=== PATIENT | female | born 1955 | race Caucasian/White ===

== ENCOUNTER 2017-03-28 18:31 | Emergency (ER) | payer OTHER ==
[~2017-03-28] VITALS: Ht 160 cm; Wt 75.8 kg
[~2017-03-28 18:31] MED LIST: AMOX500C3 PO; ARM1 PO; LSX20 PO; LSX40 PO; POTA-327 PO; WARF-285 PO
[2017-03-28 18:49] VITALS: BP 115/70; PULSE 68; TEMP 36.6; O2SAT 99; Ht 160 cm; Wt 75.8 kg
[2017-03-28] MEDS ORDERED: POTA10CA28 PO (20:00)
[2017-03-28] MEDS ORDERED: [UNRECOGNIZED DRUG - CODE] INJ (20:00)
[2017-03-28] MEDS ORDERED: FRS/40 PO (20:00)
[2017-03-28] MEDS ORDERED: WARF3TAB PO ×2 (20:00)
[2017-03-28] MEDS ORDERED: LEVO50TA6 PO (20:00)
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
[2017-03-28] MEDS ORDERED: CIPROFLOXACIN HCL 0.3% OP SOLN 2.5 ML BTL OP ONE (20:15)
[2017-03-28] MEDS ORDERED: LSN25 PO (22:02)
[2017-03-28] MEDS ORDERED: OXYC-164 PO (22:02)
[2017-03-28] MEDS ORDERED: CRD200 PO (22:02)
[2017-03-28] MEDS ORDERED: SIMV-151 PO (22:02)
[2017-03-28] MEDS ORDERED: TPRSR/50 PO (22:02)
[2017-03-28] MEDS ORDERED: ASPI81TA28 PO (22:07)
--- NOTE | 2017-03-29 00:41 | EMERGENCY ROOM VISIT NOTE ---
ED Visit Note First contact with patient: 19:15 Chief Complaint: Foggy vision and foreign body sensation in the right eye. History of Present Illness: Ms. Doherty is a 61-year-old white female who ambulates into the ED complaining of a foggy vision and foreign body sensation in the right eye. Historically patient reports her right eye sustained a traumatic injury and she had a have her iris repaired on the right. She also reports she's had a traumatic injury to the left eye and it has been replaced by an implant. Patient reports approximately 24 hours ago she started developing intermittent, transient perception's of fogginess over her right eye. These occur multiple times during the day but are limited to 5-10 seconds and then self resolved. Associated with the symptoms she reports she also has a foreign body sensation in the right eye. These all occurred while she was inside and she denies any recent trauma to her eye. Associated with the symptoms she reports she has a mild achiness in the right eye. She rates this discomfort 8/10. The pain is nonradiating. She has not identified any aggravating or alleviating factors related to the pain. She has not taken any medications for this discomfort prior to arrival at the hospital. Associated with her pain she also reports she has mild tearing and mild blurry vision in the right eye. She denies fevers, chills, sweats, skin eruptions, skin color changes, upper respiratory tract symptoms, floaters, halos, bronson, drawing curtains, headaches , dizziness, nausea/vomiting. Review of Systems: As noted above in history of present illness. 8 body systems were reviewed and found to be negative as noted above. Past Medical History: As noted above, chronic systolic heart failure, nonischemic cardiomyopathy, nonocclusive coronary artery disease, breast cancer , atrial fibrillation, hypothyroidism, and status post hip and knee replacement. Current Medications: Medications Dose Route/Sig Max Daily Dose Days Date Category Dose Instructions Micro-K Ext Rel (Potassium Chloride) 10 Meq Capcr 10 Meq PO BID 03/28/17 Reported Lasix (Furosemide) 40 Mg Tab 40 Mg PO DAILY 03/28/17 Reported Coumadin (Warfarin Sodium) 3 Mg Tab 1.5 Mg PO Fridays03/28/17 Reported Coumadin (Warfarin Sodium) 3 Mg Tab 3 Mg PO 6XWK 03/28/17 Reported TAKE ALL DAYS BUT MARICHUY Naloxone HCl 1 Mg/Ml Inj 1 Dose INJ UD 03/28/17 Reported USE 1/2 SYRINGE IN EACH NOSTRIL PRN FOR OPIOD OVERDOSE, REPEAT PRN AFTER 3-5 MINN. Levothyroxine Sodium 50 Mcg Tab 50 Mcg PO DAILY 03/28/17 Reported Aspirin Ec (Aspirin) 81 Mg Tab 81 Mg PO QPM 06/26/16 Reported Oxycodone Hcl 10 Mg Tab 10 Mg PO Q6H PRN 06/26/16 Reported Simvastatin 20 Mg Tab 20 Mg PO QPM 06/26/16 Reported Lisinopril 2.5 Mg Tab 1.25 Mg PO QPM 06/26/16 Reported Amiodarone HCl 200 Mg Tab 100 Mg PO QAM 06/26/16 Reported Metoprolol Succinate ER (Metoprolol Succinate) 50 Mg Tabcr 50 Mg PO QAM 06/26/16 Reported Amoxil (Amoxicillin) 500 Mg Cap 4 Tabs PO UD PRN 11/25/14 Reported prior to dentist Allergies to Medications: Docetaxal. Social History: Patient is not employed; she feels safe in her home environment ; she denies tobacco and alcohol use. Physical Examination: Vital Signs: Date Time Temp Pulse Resp B/P (MAP) Pulse Ox O2 Delivery O2 Flow Rate FiO2 03/28/17 18:49 36.6 68 16 115/70 99 Room Air GENERAL: 61-year-old female in mild distress due to pain, nontoxic-appearing, afebrile and hemodynamically stable. NEUROLOGICAL: Awake, alert and oriented to person, place and time. Answering questions appropriately and following commands. Normal gait. Good hand eye coordination. No focal motor or sensory deficits. SKIN: Warm, dry and pink. No soft tissue eruptions or trauma noted. HEENT: Atraumatic and normocephalic. No erythema or tenderness over the frontal or maxillary sinuses. Right pupil is irregular shaped with a tear of the iris at the 7 o'clock position. The pupil does respond to light. The left pupil is fixed due to prosthetic eye. No foreign bodies were noted under the eyelids are embedded in the cornea. The anterior chamber is clear. On slit lamp examination with staining patient had 2 punctate uptake of the staining at the flight o'clock position. There is distortion of the topical sclera at the 7 o'clock position from her previous surgeries. The sclera was not injected. Conjunctiva pink without obvious drainage. Visual Acuity: 20/30 with correction on the right. I did attempt to take intraocular pressure readings but was unsuccessful due to pupil shape. ED Course: Patient is assessed as noted above. Alcaine was used to anesthetize the eye for examination. Patient was educated about today's findings and instructed on her treatment plan ; she verbalizes understanding and agreement with this plan. Clinical Impression: Corneal abrasion. Foggy vision. Decision-Making: Initially my differential diagnosis I considered corneal abrasion, glaucoma, and other causes. Disposition: Patient discharged home in stable condition accompanied by her ; prior to departure she was reassessed and subjectively reported she was pain-free. Plan: Patient was encouraged to use 650 mg of acetaminophen every 6 hours as needed for pain. Patient was prescribed Ciloxan ophthalmic solution encouraged to use 2 drops in the right eye every 4 hours while awake for 5 days. Patient was encouraged to follow-up with her personal marine extension agent or return to the ED in 36-48 hours for recheck. Patient was encouraged return the ED for worsening symptoms, fevers, decrease in overall vision, severe headaches, vomiting or any new/concerning symptoms.
== END 2017-03-28 20:19 | disposition home or self-care (01) ==
LOC: C.EDB 18:32 → C.EDD 20:19
DX: H53.8 Other visual disturbances (principal); S05.01XA Injury of conjunctiva and corneal abrasion without foreign body, right eye, initial encounter; X58.XXXA Exposure to other specified factors, initial encounter; I42.9 Cardiomyopathy, unspecified; I50.22 Chronic systolic (congestive) heart failure; I25.10 Atherosclerotic heart disease of native coronary artery without angina pectoris; Z85.3 Personal history of malignant neoplasm of breast; I48.91 Unspecified atrial fibrillation; E78.5 Hyperlipidemia, unspecified; E03.9 Hypothyroidism, unspecified; Z98.890 Other specified postprocedural states; Z79.01 Long term (current) use of anticoagulants; Z79.82 Long term (current) use of aspirin; Z79.899 Other long term (current) drug therapy; Z96.642 Presence of left artificial hip joint; Z96.659 Presence of unspecified artificial knee joint; N18.3 Chronic kidney disease, stage 3 (moderate); I12.9 Hypertensive chronic kidney disease with stage 1 through stage 4 chronic kidney disease, or unspecified chronic kidney disease; Z90.89 Acquired absence of other organs; Z98.51 Tubal ligation status; Z90.13 Acquired absence of bilateral breasts and nipples; Z95.810 Presence of automatic (implantable) cardiac defibrillator

== ENCOUNTER 2017-03-31 11:55 | Emergency (ER) | payer OTHER ==
[~2017-03-31] VITALS: Ht 160 cm; Wt 75.3 kg
[~2017-03-31 11:55] MED LIST changes: -ARM1 PO; +ASPI81TA28 PO; +CRD200 PO; +FRS/40 PO; +LEVO50TA6 PO; +LSN25 PO; -LSX20 PO; -LSX40 PO; +OXYC-164 PO; -POTA-327 PO; +POTA10CA28 PO; +SIMV-151 PO; +TPRSR/50 PO; -WARF-285 PO; +WARF3TAB PO; +[UNRECOGNIZED DRUG - CODE] INJ
[2017-03-31 11:59] VITALS: TEMP 36.5; Ht 160 cm; Wt 75.3 kg
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
[2017-03-31] MEDS ORDERED: CPRDOTS OPR (12:30)
[2017-03-31] MEDS ORDERED: CIPR0.3S OPR (12:31)
[2017-03-31 12:37] VITALS: BP 133/80; PULSE 69; O2SAT 96
== END 2017-03-31 12:37 | disposition home or self-care (01) ==
LOC: C.EDB 11:56 → C.EDD 12:37
DX: Z51.89 Encounter for other specified aftercare (principal); S05.01XD Injury of conjunctiva and corneal abrasion without foreign body, right eye, subsequent encounter; X58.XXXD Exposure to other specified factors, subsequent encounter; I12.9 Hypertensive chronic kidney disease with stage 1 through stage 4 chronic kidney disease, or unspecified chronic kidney disease; N18.3 Chronic kidney disease, stage 3 (moderate); E03.9 Hypothyroidism, unspecified; E78.5 Hyperlipidemia, unspecified; I50.9 Heart failure, unspecified; I48.91 Unspecified atrial fibrillation; Z85.3 Personal history of malignant neoplasm of breast; Z79.01 Long term (current) use of anticoagulants; Z79.82 Long term (current) use of aspirin; Z79.899 Other long term (current) drug therapy; Z95.810 Presence of automatic (implantable) cardiac defibrillator; Z90.01 Acquired absence of eye; Z90.89 Acquired absence of other organs; Z96.642 Presence of left artificial hip joint; Z98.51 Tubal ligation status; Z90.13 Acquired absence of bilateral breasts and nipples

== ENCOUNTER 2018-02-03 21:30 | Emergency (ER) | payer OTHER ==
[~2018-02-03] VITALS: Ht 160 cm; Wt 76.9 kg
[~2018-02-03 21:30] MED LIST changes: -PROPOFOL IV EMULSION 10 MG/ML 20 ML VIAL ONE
[2018-02-03 21:44] VITALS: TEMP 36.4; Ht 160 cm; Wt 76.9 kg
[2018-02-03 21:59] VITALS: O2SAT 99
[2018-02-03 23:15] LABS: BASO % 0.2 %; BASO ABS # 0.02 K/uL (0-0.2); EOS % 0.4 %; EOS ABS # 0.04 K/uL (0-0.5); HEMATOCRIT 45.8 % (37-47); HEMOGLOBIN 15.6 g/dL (12.0-16.0); IG# 0.02 K/uL (0.00-0.02); LYMPH % 18.5 %; LYMPH ABS # 1.65 K/uL (1.2-3.4); MEAN CELL VOLUME 91.8 fL (80-100); MEAN CORPUSCULAR HEMOGLOBIN 31.3 pg (25-34); MEAN CORPUSCULAR HGB CONC 34.1 g/dl (32-36); MEAN PLATELET VOLUME 11.5 fL (7.4-10.4); MONO % 10.5 %; MONO ABS # 0.94 K/uL (0.11-0.59); NEUT % 70.2 %; NEUT ABS # 6.27 K/uL (1.4-6.5); PLATELET COUNT 182 K/uL (130-400); RED CELL DISTRIBUTION WIDTH CV 15.7 % (11.5-14.5); RED CELL DISTRIBUTION WIDTH SD 52.5 fL (36.4-46.3); WHITE BLOOD COUNT 8.94 K/uL (4.8-10.8)
[2018-02-03 23:35] LABS: ALBUMIN 3.6 gm/dl (3.4-5.0); ALT/SGPT 40 U/L (12-78); AST/SGOT 53 U/L (15-37); BLOOD UREA NITROGEN 30 mg/dl (7-18); CALCIUM 9.2 mg/dl (8.5-10.1); CARBON DIOXIDE 28 mmol/L (21-32); CREATININE 1.43 mg/dl (0.60-1.20); GLUCOSE 123 mg/dl (70-99); LIPASE 242 U/L (73-393); POTASSIUM 4.3 mmol/L (3.5-5.1); SODIUM 135 mmol/L (136-145)
[2018-02-03 23:40] LABS: ALKALINE PHOSPHATASE 114 U/L (45-117); CKMB 1.8 ng/ml (0.5-3.6); TOTAL PROTEIN 7.5 gm/dl (6.4-8.2)
[2018-02-03 23:44] LABS: INR 5.5 (0.9-1.1); PTT PATIENT 33.4 SECONDS (21.0-31.0)
--- NOTE | 2018-02-04 00:07 | EMERGENCY ROOM VISIT NOTE ---
History Report prepared by Negrito: Ge Marley Under the Supervision of: Dr. Marcelino Esquivel D.O. First contact with patient: 22:32 Chief Complaint: SHORTNESS OF BREATH Stated Complaint: DIZZY, TROUBLE BREATHING, NAUSEA,CHEST PAIN Nursing Triage Summary: Nonproductive cough, midsternal chest pressure, nausea. Pt was cardioverted by Dr Freed this am @ 0700. Pt felt fine post cardioversion and about 0930 she started having sx's. History of Present Illness The patient is a 62 year old female who presents to the Emergency Room with complaints of persistent general shortness of breath since this afternoon. She has a history of CHF. She notes that she was not feeling well for one week prior to yesterday. She notes that she kept swelling and her diuretic medication was not helping. She was seen by her PCP who determined that she had atrial fibrillation. 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 She regularly takes Coumadin. She states that she was able to ambulate without issue and felt great. She notes that once she got home, she could not breathe again. Per nursing staff, the patient notes that she became nauseated and vomited. She tried laying down and her breathing worsened. She does not wear at home oxygen. She denies any chest pain. Source of History: patient Onset: since this afternoon Position: other (general ) Quality: other (shortness of breath) Timing: other (persistent) Modifying Factors (Worsening): other (lying flat) Associated Symptoms: + nausea, + vomiting, No chest pain Review of Systems See HPI for pertinent positives & negatives. A total of 10 systems reviewed and were otherwise negative. Past Medical & Surgical Medical Problems: (1) Atrial fibrillation (2) Blind left eye (3) Cardiac defibrillator in situ (4) CHF (congestive heart failure) (5) CKD (chronic kidney disease) stage 3, GFR 30-59 ml/min (6) Depression (7) Dyslipidemia (8) History of breast cancer (9) HTN (hypertension) (10) Hyperthyroidism (11) Hypothyroidism Surgical Problems: (1) History of removal of eye (2) History of tonsillectomy and adenoidectomy (3) History of total left hip arthroplasty (4) History of tubal ligation (5) Hx of total knee arthroplasty (6) S/P mastectomy, bilateral Family History No pertinent family history Social History Smoking Status: Never Smoker Marital Status: Housing Status: lives with family Current/Historical Medications Scheduled Amiodarone HCl (Amiodarone HCl), 100 MG PO QAM Aspirin (Aspirin Ec), 81 MG PO QPM Furosemide (Lasix), 40 MG PO DAILY Levothyroxine Sodium (Levothyroxine Sodium), 50 MCG PO DAILY Lisinopril (Lisinopril), 1.25 MG PO QPM Metoprolol Succinate (Metoprolol Succinate ER), 50 MG PO QAM Potassium Chloride (Micro-K Ext Rel), 10 MEQ PO BID Simvastatin (Simvastatin), 20 MG PO QPM Warfarin Sodium (Coumadin), 3 MG PO 6XWK Warfarin Sodium (Coumadin), 1.5 MG PO FRIDAYS Scheduled PRN Amoxicillin (Amoxil), 4 TABS PO UD PRN for Prior To Dental Procedures Oxycodone Hcl (Oxycodone Hcl), 10 MG PO Q6H PRN for Pain Allergies Coded Allergies: Docetaxel (Unverified Allergy, Severe, Chest pain, syncope, unable to talk , visual disturbances, 02/03/18) Physical Exam Vital Signs Date Time Temp Pulse Resp B/P (MAP) Pulse Ox O2 Delivery O2 Flow Rate FiO2 02/03/18 23:10 68 20 121/90 97 Room Air 02/03/18 22:15 97 Room Air 02/03/18 22:02 64 02/03/18 21:59 99 Nasal Cannula 2.0 02/03/18 21:59 99 Nasal Cannula 02/03/18 21:44 36.4 64 20 123/89 95 Room Air Physical Exam CONSTITUTIONAL/VITAL SIGNS: Reviewed / noted above. GENERAL: Non-toxic in appearance. INTEGUMENTARY: Warm, dry, and [place]. HEAD: Normocephalic. EYES: without scleral icterus or trauma. ENT/OROPHARYNX: clear and moist. LYMPHADENOPATHY/NECK: Is supple without lymphadenopathy or meningismus. RESPIRATORY: Lungs clear and equal. CARDIOVASCULAR: Regular rate and rhythm. GI/ABDOMEN: Soft and nontender. No organomegaly or pulsatile mass. No rebound or guarding. Normal bowel sounds. EXTREMITIES: Warm and well perfused. BACK: No CVA tenderness. NEUROLOGICAL: Intact without focal deficits. PSYCHIATRIC: normal affect. MUSCULOSKELETAL: Normally developed with good muscle tone. Medical Decision & Procedures ER Provider Diagnostic Interpretation: Radiology results as stated below per my review and interpretation: CHEST XR: No pneumonia. No pneumothorax. Mild cardiomegaly. No pulmonary edema. Laboratory Results 02/03/18 23:05 Red Blood Count 4.99, Mean Corpuscular Volume 91.8, Mean Corpuscular Hemoglobin 31.3, Mean Corpuscular Hemoglobin Concent 34.1, Mean Platelet Volume 11.5, Neutrophils (%) (Auto) 70.2, Lymphocytes (%) (Auto) 18.5, Monocytes (%) (Auto) 10.5, Eosinophils (%) (Auto) 0.4, Basophils (%) (Auto) 0.2, Neutrophils # (Auto ) 6.27, Lymphocytes # (Auto) 1.65, Monocytes # (Auto) 0.94, Eosinophils # (Auto ) 0.04, Basophils # (Auto) 0.02 02/03/18 23:05 Test 02/03/18 23:05 White Blood Count 8.94 K/uL (4.8-10.8) Red Blood Count 4.99 M/uL (4.2-5.4) Hemoglobin 15.6 g/dL (12.0-16.0) Hematocrit 45.8 % (37-47) Mean Corpuscular Volume 91.8 fL (80-100) Mean Corpuscular Hemoglobin 31.3 pg (25-34) Mean Corpuscular Hemoglobin Concent 34.1 g/dl (32-36) Platelet Count 182 K/uL (130-400) Mean Platelet Volume 11.5 fL (7.4-10.4) Neutrophils (%) (Auto) 70.2 % Lymphocytes (%) (Auto) 18.5 % Monocytes (%) (Auto) 10.5 % Eosinophils (%) (Auto) 0.4 % Basophils (%) (Auto) 0.2 % Neutrophils # (Auto) 6.27 K/uL (1.4-6.5) Lymphocytes # (Auto) 1.65 K/uL (1.2-3.4) Monocytes # (Auto) 0.94 K/uL (0.11-0.59) Eosinophils # (Auto) 0.04 K/uL (0-0.5) Basophils # (Auto) 0.02 K/uL (0-0.2) RDW Standard Deviation 52.5 fL (36.4-46.3) RDW Coefficient of Variation 15.7 % (11.5-14.5) Immature Granulocyte % (Auto) 0.2 % Immature Granulocyte # (Auto) 0.02 K/uL (0.00-0.02) Prothrombin Time 55.6 SECONDS (9.0-12.0) Prothromb Time International Ratio 5.5 (0.9-1.1) Activated Partial Thromboplast Time 33.4 SECONDS (21.0-31.0) Partial Thromboplastin Ratio 1.3 Anion Gap 7.0 mmol/L (3-11) Est Creatinine Clear Calc Drug Dose 41.1 ml/min Estimated GFR () 46.0 Estimated GFR (Non- 39.7 BUN/Creatinine Ratio 20.7 (10-20) Calcium Level 9.2 mg/dl (8.5-10.1) Total Bilirubin 1.5 mg/dl (0.2-1) Direct Bilirubin 0.8 mg/dl (0-0.2) Aspartate Amino Transf (AST/SGOT) 53 U/L (15-37) Alanine Aminotransferase (ALT/SGPT) 40 U/L (12-78) Alkaline Phosphatase 114 U/L (45-117) Total Creatine Kinase 73 U/L (26-192) Creatine Kinase MB 1.8 ng/ml (0.5-3.6) Creatine Kinase MB Ratio 2.5 (0-3.0) Troponin I < 0.015 ng/ml (0-0.045) Total Protein 7.5 gm/dl (6.4-8.2) Albumin 3.6 gm/dl (3.4-5.0) Lipase 242 U/L (73-393) Laboratory results as stated above per my review. ECG Per My Interpretation Indication: SOB/dyspnea Rate (beats per minute): 66 Rhythm: sinus rhythm Findings: 1st degree AV block, LBBB Change: no significant change (when compared to 0739 this morning) ED Course 2233: Previous medical records were reviewed. The patient was evaluated in room C11B. A complete history and physical examination was performed. 0002: I reassessed the patient at this time. She is feeling better and resting comfortably. I discussed the results and treatment plan with the patient. I answered all pertaining questions that she had. She expressed understanding and verbalized agreement. The patient will be discharged home. Medical Decision Differentials considered include acute myocardial infarction, acute coronary syndrome, myocarditis, pericarditis, pericardial effusions /tamponade, esophageal perforation, pulmonary embolism, pneumonia, pneumothorax, cardiomyopathy, congestive heart, anemia, and COPD/asthma exacerbation. This is a 62-year-old female who presents to the ED with a chief complaint of shortness of breath. She also reports some chest discomfort. The patient was cardioverted this morning by Dr. Freed around 7 AM. When she got home, she felt nauseated and had a little vomiting and has been feeling short of breath and having chest discomfort since that time. The patient was cardioverted for atrial fibrillation. She is chronically on warfarin. The patient's vital signs were normal. Her physical exam was unremarkable. Lungs were clear. The patient's CBC was normal, troponin was negative, INR is 5.5, BUN and creatinine are slightly elevated, chest x-ray was negative for acute disease. The EKG shows a normal sinus rhythm and is similar to one done earlier today. Patient was told the results. She was more relaxed and feeling better at the time of disposition. She was felt to be stable for discharge. She has an appointment to see her processing clerk tomorrow. Medication Reconcilliation Current Medication List: was personally reviewed by me Blood Pressure Screening Patient's blood pressure: Normal blood pressure Impression Primary Impression: Dyspnea Scribe Attestation The scribe's documentation has been prepared under my direction and personally reviewed by me in its entirety. I confirm that the note above accurately reflects all work, treatment, procedures, and medical decision making performed by me. Departure Information Dispostion Home / Self-Care Referrals Rose Marie Galloway M.D. (PCP) Patient Instructions My [facility] Additional Instructions Follow-up with your doctor for further care and evaluation in 1-2 days. Return to the emergency department for worsening or new symptoms or any concerns. You have been examined and treated today on an emergency basis only. This is not a substitute for, or an effort to provide, complete comprehensive medical care. It is impossible to recognize and treat all injuries or illnesses in a single emergency department visit. It is therefore important that you follow up closely with your doctor. Call as soon as possible for an appointment.
[2018-02-04 00:34] VITALS: BP 120/84; PULSE 71; O2SAT 97
--- NOTE | 2018-02-04 07:08 | DIAGNOSTIC IMAGING REPORT ---
CHEST ONE VIEW PORTABLE CLINICAL HISTORY: Evaluate Fever/Sepsis dyspnea COMPARISON STUDY: 06/26/2016 FINDINGS: Mild stable cardia megaly. Unipolar cardiac defibrillator in good position. Lungs are clear. IMPRESSION: No acute process. The above report was generated using voice recognition software. It may contain grammatical, syntax or spelling errors. Electronically signed by: Graeme Campos M.D. 02/04/2018 7:06 AM Dictated Date/Time: 02/04/2018 7:06 AM
== END 2018-02-04 00:36 | disposition home or self-care (01) ==
LOC: C.EDB 21:31 → C.EDC 02-04 00:36
DX: R06.00 Dyspnea, unspecified (principal); R11.2 Nausea with vomiting, unspecified; I48.91 Unspecified atrial fibrillation; Z79.01 Long term (current) use of anticoagulants; Z79.82 Long term (current) use of aspirin; I50.9 Heart failure, unspecified; N18.3 Chronic kidney disease, stage 3 (moderate); E03.9 Hypothyroidism, unspecified; E78.5 Hyperlipidemia, unspecified; Z95.810 Presence of automatic (implantable) cardiac defibrillator; Z88.8 Allergy status to other drugs, medicaments and biological substances

== ENCOUNTER → 2018-02-03 | Day surgery (SDC) | payer OTHER ==
[~2018-02-03] VITALS: Ht 160 cm; Wt 74.0 kg
[2018-02-03] VITALS (7 sets, daily range): BP systolic 97–125; BP diastolic 49–98; PULSE 46–86; TEMP 36.8; O2SAT 92–97; Ht 160 cm; Wt 74.0 kg
[~2018-02-03] MED LIST changes: +CIPR0.3S OPR; +PROPOFOL IV EMULSION 10 MG/ML 20 ML VIAL ONE; -[UNRECOGNIZED DRUG - CODE] INJ
--- NOTE | 2018-02-03 07:37 | History & Physical Bridge Note ---
H&P Re-Evaluation Bridge Note: I have examined the patient, reviewed the History & Physical and in the interval since the performance of the History & Physical I have noted the following changes of clinical significance: No changes noted
--- NOTE | 2018-02-03 07:42 | Cardiology Procedure Brief Nt ---
Preliminary Cardiology Note Procedure Date February 03, 2018. Pre-Procedure Diagnosis Atrial fibrillation Post-Procedure Diagnosis Successful biphasic synchronized electrical cardioversion Procedure(s) Performed Successful biphasic synchronized electrical cardioversion Slug Press Operator Abdiaziz Kiln Door Builder(s) None Estimated Blood Loss None Preliminary Findings Successful biphasic synchronized electrical cardioversion was performed using single 150 J countershock. Recommendations Continued medical medical therapy Fluids (cc crystalloids) 75cc Specimens None Complication(s) None Disposition Offset Platemaker Holding Area
--- NOTE | 2018-02-03 07:47 | Discharge Instructions ---
Discharge Instructions Procedure Procedure Date: February 03, 2018. Reason for Visit: AfibNotified AnesthesiaAbdiaziz To Do. Discharge Discharge Date: February 03, 2018. Discharge Diagnosis: Successful biphasic synchronized electrical cardioversion Last Recorded Wt (Kilograms): 74 Anesthesia Post Anesthesia Instructions: If you have had General Anesthesia or IV Sedation: * Do not drive today. * Resume driving when surgeon permits. * Do not make important decisions or sign legal documents today. * Call surgeon for: 1. Temperature elevations greater than 101 degrees F. 2. Uncontrollable pain. 3. Excessive bleeding. 4. Persistent nausea and vomiting. 5. Medication intolerance (nausea, vomiting or rash). * For nausea and vomiting use only clear liquids such as: tea, soda, bouillon until nausea subsides, then gradually increase diet as tolerated. * If you have any concerns or questions, call your surgeon's office. If physician is unavailable and it is an emergency, call 911 or go to the nearest emergency room. Instructions Activity Recommendations: limitations as noted below Recommended Home Diet: resume previous diet Allergies: Coded Allergies: Docetaxel (Unverified Allergy, Severe, Chest pain, syncope, unable to talk , visual disturbances, 03/31/17) Provider Instructions ACTIVITY RECOMMENDATIONS: Resume activities as tolerated with no limitations unless specified. __ No lifting over __ pounds for 24 hours. __ Do not engage in vigorous exercise, sexual activity, or sports for 24 hours. __ Do not drive or operate any motorized equipment for 24 hours. __ You may return to work/school tomorrow. Follow Up Follow-up with: Graeme Pang/ Dr Giordano as scheduled [facility] Recommendations: Call your doctor if: * Temperature above 101 degrees * Pain not relieved by pain medicine ordered * There is increased drainage or redness from any incision * You have any unanswered questions or concerns. Your Doctors Instructions noted above were prepared by provider Jeromy Freed. Patient Signature Section: Patient Instructions Signature Page Kayce Doherty Patient (or Guardian) Signature/Date: I have read and understand the instructions given to me by my caregivers. Caregiver/RN/Doctor Signature/Date: The above-named patient and/or guardian has received patient instructions on this date. + Original Patient Signature Page (only) stays with chart. Please make copy for patient.
--- NOTE | 2018-02-03 08:12 | Anesthesiology Progress Note ---
Anesthesia Post Op Note Date & Time February 03, 2018 at 08:11 Vital Signs Pain Intensity: 0 Vital Signs Past 12 Hours Date Time Temp Pulse Resp B/P (MAP) Pulse Ox O2 Delivery O2 Flow Rate FiO2 02/03/18 08:05 60 18 115/74 (88) 95 Room Air 02/03/18 08:00 50 18 107/66 (80) 93 Room Air 02/03/18 07:55 48 18 106/61 (76) 94 Room Air 02/03/18 07:50 50 18 95/54 (68) 95 Room Air 02/03/18 07:45 52 18 98/54 (69) 97 Nasal Cannula 5 02/03/18 07:43 49 16 97/55 97 Nasal Cannula 5 02/03/18 07:41 46 16 104/51 96 Nasal Cannula 5 02/03/18 07:40 50 16 103/49 94 Nasal Cannula 5 02/03/18 07:35 58 16 106/61 96 Nasal Cannula 5 02/03/18 07:31 86 16 124/98 96 Nasal Cannula 5 02/03/18 07:02 36.8 74 16 125/82 (96) 92 Room Air Notes Mental Status: alert / awake / arousable, participated in evaluation Pt Amnestic to Procedure: Yes Nausea / Vomiting: adequately controlled Pain: adequately controlled Airway Patency, RR, SpO2: stable & adequate BP & HR: stable & adequate Hydration State: stable & adequate Anesthetic Complications: no major complications apparent
--- NOTE | 2018-02-03 11:11 | CARDIOVERSION ---
DATE OF OPERATION: 02/03/2018 SYNCHRONIZED ELECTRICAL CARDIOVERSION REPORT REFERRING PHYSICIAN: Graeme Pang PA-C PRIMARY CARE PHYSICIAN: Dr. Galloway. INDICATIONS: Atrial fibrillation with poorly controlled ventricular response for poor rate. PROCEDURE: After procedure and risks were explained in detail to the patient, informed consent was obtained. Patient was then sedated via anesthesia consultation with continuous heart rate, blood pressure and oxygen saturation monitoring. Single biphasic 150-joule synchronized countershock was administered with successful conversion to sinus rhythm. Post-procedure, the patient aroused having tolerated well without complications. EKG postprocedure demonstrated sinus bradycardia at a rate of 53 with first-degree AV block, nonspecific intraventricular conduction delay. QT corrected of 478. RECOMMENDATIONS: Continued medical therapies. No changes in medical regimen. Outpatient followup as are previously scheduled. I attest to the content of the Intraoperative Record and any orders documented therein. Any exception s are noted below.
== END | disposition home or self-care (01) ==
LOC: C.CATH 06:05
PROVIDERS: ATTEND Internal Medicine Cardiovascular Disease
DX: I48.0 Paroxysmal atrial fibrillation (principal); E05.80 Other thyrotoxicosis without thyrotoxic crisis or storm; I11.0 Hypertensive heart disease with heart failure; I42.7 Cardiomyopathy due to drug and external agent; I25.10 Atherosclerotic heart disease of native coronary artery without angina pectoris; I50.22 Chronic systolic (congestive) heart failure; Z85.3 Personal history of malignant neoplasm of breast; Z90.13 Acquired absence of bilateral breasts and nipples; Z95.810 Presence of automatic (implantable) cardiac defibrillator; E78.5 Hyperlipidemia, unspecified; Z79.899 Other long term (current) drug therapy

== ENCOUNTER 2024-11-24 18:03 | Inpatient (IN) ==
[2024-11-24 18:48] LABS: Basophils # (auto) 0.06 K/uL (0.00-0.20); Basophils % (auto) 0.7 %; Eosinophils # (auto) 0.06 K/uL (0.00-0.50); Eosinophils % (auto) 0.7 %; Hematocrit (blood only) 45.2 % (37.0-47.0); Hemoglobin 14.5 g/dl (12.0-16.0); Immature Granulocytes # (auto) 0.04 K/uL (0.01-0.20); Immature Granulocytes % (auto) 0.5 %; Lymphocytes # (auto) 2.36 K/uL (1.20-3.40); Lymphocytes % (auto) 29.1 %; Mean Corpuscular Hemoglobin 29.2 pg (25.0-34.0); Mean Corpuscular Hgb Conc 32.1 g/dL (32.0-36.0); Mean Corpuscular Volume 90.9 fL (80.0-100.0); Mean Platelet Volume 11.6 fL (9.4-12.4); Monocytes # (auto) 0.77 K/uL (0.11-0.59); Monocytes % (auto) 9.5 %; Neutrophils # (auto) 4.82 K/uL (1.40-6.50); Neutrophils % (auto) 59.5 %; Platelet Count 201 K/uL (130-400); RDW Coefficient of Variation 16.4 % (11.5-14.5); RDW Standard Deviation 54.4 fL (36.4-46.3); Red Blood Count 4.97 M/uL (4.20-5.40); White Blood Count 8.11 K/ul (4.8-10.8)
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
[2024-11-24 19:12] LABS: Alanine Aminotransferase 64 U/L (7-52); Albumin Globulin Ratio 1.3 (0.9-2); Albumin Level 4.2 gm/dl (3.4-5.0); Alkaline Phosphatase 73 U/L (34-104); Anion Gap 11 (3-11); Aspartate Aminotransferase 54 U/L (13-39); BUN Creatinine Ratio 19.4 (10-20); Bilirubin,Total 1.6 mg/dl (0.2-1.0); Blood Urea Nitrogen 34 mg/dl (6-23); Calcium 10.3 mg/dl (8.6-10.3); Carbon Dioxide 26 mmol/L (21-32); Chloride 101 mmol/L (98-107); Globulin 3.2 gm/dl (2.5-4.0); Glucose 80 mg/dl (70-99(Fasting)); Magnesium 2.5 mg/dl (1.7-2.4); Potassium 3.5 mmol/L (3.5-5.1); Sodium 138 mmol/L (136-145); Total Protein 7.4 gm/dl (6.0-8.3)
[2024-11-24 19:17] LABS: INR 1.3 (0.9-1.1); Partial Thromboplastin Ratio 1.1; Partial Thromboplastin Time 30 Seconds (21-31)
[2024-11-24 19:18] LABS: Troponin I High Sensitivity 14.2 pg/ml (0-14)
--- NOTE | 2024-11-24 19:18 | XRay Report ---
Chest radiograph, one view History: Chest pain Comparison: 10/29/2022 Findings: Single AP view of the chest performed. No focal consolidation or pleural effusion. No pneumothorax. Left chest wall 3-lead AICD. The cardiomediastinal silhouette is within normal limits. Normal pulmonary vascularity. No evidence for lymphadenopathy. No visualized bony or soft tissue abnormality. Impression: Normal chest radiograph Electronically signed by Javad Mcduffie 11-24-2024 7:18 PM
[2024-11-24] MEDS: FUROSEMIDE 40 MG/4 ML VIAL IV ONE (19:41)
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
[2024-11-24] MEDS: ALBUMIN 25% 12.5 GM/50 ML VIAL IV ONE (20:25)
[2024-11-24 20:40] LABS: Appearance Urine Clear (Clear); Bacteria Urine Automated None Seen (None Seen); Bilirubin Urine Negative (Negative); Blood Urine 2+ (Negative); Cast Urine Automated 0-2 /lpf (0-2); Color Urine Yellow; Glucose Urine UA 3+ (Negative); Ketones Urine Negative (Negative); Leukocyte Esterase Urine Negative (Negative); Nitrite Urine Negative (Negative); Protein Urine 1+ (Negative); RBC Urine Automated 0-2 /hpf (0-2); Specific Gravity Urine 1.015 (1.000-1.030); Urobilinogen Urine Negative (Negative)
[2024-11-24] MEDS ORDERED: POLYETHYLENE (MIRALAX) 17 GM PACK PO PRN (21:19)
[2024-11-24] MEDS ORDERED: ACETAMINOPHEN 325 MG TAB PO PRN (22:03)
[2024-11-24] MEDS ORDERED: ACETAMINOPHEN 500 MG TAB PO PRN (22:07)
[2024-11-24] MEDS: POLYETHYLENE (MIRALAX) 17 GM PACK PO STA (23:14)
[2024-11-24] MEDS: DOCUSATE SODIUM/SENNA 50/8.6MG TAB PO SCH (23:14)
[2024-11-24] MEDS: Patient's HEIGHT &/or WEIGHT Needed STA (23:18)
[2024-11-24] MEDS: ALBUMIN 25% 25 GM/100 ML VIAL IV ONE (23:27)
[2024-11-25] MEDS: APIXABAN 2.5 MG TAB PO ONE (00:23)
[2024-11-25] MEDS: APIXABAN 5 MG TABLET PO SCH (00:31)
[2024-11-25 01:08] LABS: C Reactive Protein < 0.50 mg/dl (0-0.5)
[2024-11-25 01:16] LABS: Troponin I High Sensitivity 14.2 pg/ml (0-14)
[2024-11-25 01:25] LABS: Adenovirus PCR Not Detected (NotDetected); Bordetella parapertussis PCR Not Detected (NotDetected); Bordetella pertussis PCR Not Detected (NotDetected); Chlamydia pneumoniae PCR Not Detected (NotDetected); Coronavirus 229E PCR Not Detected (NotDetected); Coronavirus CoV-2 (COVID19)PCR Not Detected (NotDetected); Coronavirus HKU1 PCR Not Detected (NotDetected); Coronavirus NL63 PCR Not Detected (NotDetected); Coronavirus OC43PCR Not Detected (NotDetected); Human Metapneumovirus PCR Not Detected (NotDetected); Influenza A PCR Not Detected (NotDetected); Influenza B PCR Not Detected (NotDetected); Mycoplasma pneumoniae PCR Not Detected (NotDetected); Parainfluenza Virus 1 PCR Not Detected (NotDetected); Parainfluenza Virus 2 PCR Not Detected (NotDetected); Parainfluenza Virus 3 PCR Not Detected (NotDetected); Parainfluenza Virus 4 PCR Not Detected (NotDetected); Respiratory Syncytial VirusPCR Not Detected (NotDetected); Rhinovirus/Enterovirus PCR Not Detected (NotDetected)
--- OUTSIDE RECORDS SUMMARY | 2024-11-25 03:23 | External Medical Summary | Summary of Care ---
Author Name Unknown Organization [facility] Address [address] [place] [address] Phone [phone] Care Team Providers Care Strand Galvanizer Name Role Phone Rose Marie Galloway MD Primary Care Provide r Encounter Details Date Type Department Care Team (Late st Contact Info) Description 11/16/2024 Telephone Endocrinology [facility], Marge Sam [address] [place] [address] [place] [address] Wilian Joshua, [address] [place] [address] Allergies Active Allergy Reactions Criticality Noted Date Comments Docetaxel 02/14/2011 Chest pain, passed out , could not talk, saw silver round bubbles documented as of this encounter (statuses as of 11/23/2024) Medications OXYCODONE HCL 10 MG PO TABSIndications:pa in as needed Take by mouth every 8 hours as needed . Active Vitamin D3 50 MCG (1999 UT) Oral Capsule Take 1 Capsule by mouth in the morning. 30 Capsule 5 3 Active Jardiance 10 MG Oral Tablet (Empagliflozin)Ind ications:Systolic heart failure, chronic (HCC),Drug-induced cardiomyopathy (HCC),HTN, goal below 140/90 TAKE 1 TABLET BY MOUTH EVERY DAY IN THE MORNING 90 Tablet 3 4 Active Levothyroxine Sodium 75 MCG Oral Tablet (Levoxyl)Indicatio ns:Hypothyroidism due to medication TAKE 1 TABLET BY MOUTH EVERY DAY AT LEAST 30 MIN BEFORE BREAKFAST OR OTHER MEDICATION 90 Tablet 3 4 Active Metoprolol Succinate ER 100 MG Oral Tablet Extended Release 24 Hour (toPROL XL)Indications:Per manent atrial fibrillation (HCC),Drug-induced cardiomyopathy (HCC),HTN, goal below 140/90 TAKE 1 TABLET BY MOUTH TWICE A DAY 180 Tablet 3 4 Active Rosuvastatin Calcium 20 MG Oral Tablet (Crestor)Indicatio ns:Dyslipidemia, goal LDL below 100 TAKE 1 TABLET BY MOUTH EVERY DAY 90 Tablet 3 4 Active Eliquis 5 MG Oral Tablet (Apixaban)Indicati ons:Permanent atrial fibrillation (HCC) TAKE 1 TABLET BY MOUTH TWICE A DAY 180 Tablet 1 4 Active Spironolactone 25 MG Oral Tablet (Aldactone)Indicat ions:HTN, goal below 140/90,Heart failure, systolic, with acute decompensation (HCC) Take 0.5 Tablets by mouth once a day on Friday, Friday, and Friday only. 19 Tablet 3 4 Active Furosemide 40 MG Oral Tablet (Lasix)Indications :Hypokalemia,Heart failure, systolic, with acute decompensation (HCC) TAKE 1 TABLET EVERY OTHER DAY, OR DIRECTED 45 Tablet 1 5 Active documented as of this encounter (statuses as of 11/23/2024) Active Problems Problem Noted Date Diagnosed Date NICM (nonischemic cardiomyopathy) 04/19/2024 ICD (implantable cardioverter-defibrillator) in place 04/19/2024 Chronic kidney disease, stage 3b 11/18/2022 Overview: Per CKD protocol Osteoporosis, postmenopausal 11/05/2022 Permanent atrial fibrillation 11/05/2022 Peripheral vascular disease 10/23/2021 Hx of melanoma of skin 12/04/2020 Overview (12/04/2020): 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, Refugio II, 11/2020) Hypertensive heart and kidne y disease with chronic systolic congestive heart failure and stage 3b chronic kidney disease 10/10/2020 Biventricular implantable ca rdioverter-defibrillator (ICD) in situ 05/19/2018 Secondary renal hyperparathyroidism 03/12/2018 Hypothyroidism due to medication 02/15/2016 Encounter for surveillance of abnormal nevi 12/06 Overview (01/03/2016): Moderate (central mid upper abdomen) Dyslipidemia, goal LDL below 100 08/08/2015 Non-ischemic cardiomyopathy 03/15/2015 Senile nuclear sclerosis 08/23/2014 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 Sebhvfu-Wrfqq-Mmynw disease 12/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 0 05/12/2006 Overview (07/07/2017): ICD-10 update of inactive term History of breast cancer 03/28/2006 Family history of other cardiovascular diseases 05/14/2005 Overview (12/28/2015): ICD-10 update of inactive term FAMILY HX-BREAST MALIG 05/14/2005 HTN, goal below 140/90 06/26/2001 Blindness of left eye documented as of this encounter (statuses as of 11/23/2024) Resolved Problems Problem Noted Date Diagnosed Date Resolved Date Chronic systolic congestive heart failure 11/12/2023 11/14/2023 High risk for fracture due t o osteoporosis by DEXA scan 11/05/2022 11/11/2022 Obesity, Class I, BMI 30.0-3 4.9 (see actual BMI) 10/10/2020 05/13/2023 Stage 3a chronic kidney disease 08/14/2020 11/20/2022 Overview: Per CKD protocol Paroxysmal atrial fibrillation 04/11/2017 11/21/2022 Kidney disease, chronic, sta ge III (GFR 30-59 ml/min) 01/22/2016 08/17/2020 Overview: Per CKD protocol #1 Automatic implantable cardioverter-defibrillator in situ 03/23/201505/19 H/O dysplastic nevus 01/25/2015 016 Overview (01/25/2015): Moderate (central mid upper abdomen) Secondary cardiomyopathy, unspecified 08/30/2014 08/08/2015 Atrial fibrillation 08/30/2014 04/11/20 17 Depression 01/07/2012 02/15/2016 Generalized anxiety disorder 01/07/2012 02/15/2016 UVEITIS 04/11/2010 03/12/2018 Inflammation of postprocedural bleb of eye 04/11/2010 07/13/2013 Open wound of eyeball 03/20/20102012 Follow-up examination, follo wing other surgery 03/20/2010 07/13/2013 Orbital cellulitis 03/11/2010 0 ACTIVE CASE MANAGEMENT Geetha Lester RN [phone] 12/13/19 09 07/23/2010 Other chest pain 04/20/2008 07/13/2013 PERONEAL MUSCLE ATROPHY- CMT 03/14/2008 11/21/2022 ADVANCE DIRECTIVE INFORMATION 07/01/2007 08/09/2024 Overview (03/27/2006): No, Advance Directive brochure given to patient 02/26/06. Secondary malignant neoplasm of axillary lymph nodes 06/02/2006 03/12/2018 Encounter for antineoplastic chemotherapy 04/29/2006 07/13/2013 Dyslipidemia, goal to be determined 05/14/2005 12/24/2010 ADJ DISORDER W/DEPRES MOOD 05/14/2005 0 04/04/2020 Osteoarthrosis 06/26/2001 08/08/2015 Heart failure, etiology unknown 08/03/2009 Overview (08/03/2009): Per Heart Failure Taxonomy Protocol. Breast cancer 03/12/2018 Cervical cancer 12/28/2014 documented as of this encounter (statuses as of 11/23/2024) Immunizations Name Administration Dates Next Due COVID-19 mRNA, LNP-s, No Pre serve, 2-Dose Series (Moderna) 02/12/2021,01/15/2021 Pneumococcal Conjugate Vacci ne, 20-valent ([id number]) 11/21/2022 Pneumococcal Polysaccharide PPV23 (Pneumovax) 08/12/2006 Seasonal Influenza Vac., MDV , IM, 0.5 mL (Fluzone) 10/13/2008,07/13/2007,08/12/2006 TDAP (age 10 and older)(Boostrix) 09/01/2018 TDAP, Age 7 and older, IM (Adacel) 03/14/2008 documented as of this encounter Social History Tobacco Use Types Packs/Day Years Used Date Smoking Tobacco: Never Smokeless Tobacco: Never Alcohol Use Standard Drinks/Week Comments No 0 (1 standard drink = 0.6 oz pur e alcohol) PHQ-2 Answer Date Recorded PHQ Adult Total Score 0 10/20/2024 Hunger Vital Sign Answer Date Recorded Within the past 12 months, y ou worried that your food would run out before you got the money to buy more. Never true 10/20/19 25 Within the past 12 months, t he food you bought just didn't last and you didn't have money to get more. Never true 10/20/2024 Childcare Answer Date Recorded Do you feel overwhelmed with taking care of a child, family member or friend? No 10/20/2024 Does your family need help f inding childcare? (Household - for ages 0-17 years) Not on file 10/20/2024 Clothing Answer Date Recorded Have you been unable to get clothing when it was really needed? No 10/20/2024 Is your family able to get c lothes or diapers when needed? (Household - for ages 0-17 years) Not on file 10/20/2024 Personal Safety Answer Date Recorded Do you feel unsafe or have concerns for your saf ety? No 10/20/2024 Do you have concerns for you r family's safety? (Household - for ages 0-17 years) Not on file 10/20/2024 Utilities Answer Date Recorded Do you have trouble paying y our heating, water, or electric bill? No 10/20/2024 Is your family able to pay t he heat, water, or electric bill? (Household - for ages 0-17 years) Not on file 10/20/2024 Does your family have access to good internet? (Household - for ages 0-17 years) Not on file 10/20/2024 Employment Status Answer Date Recorded Are you unemployed or without regular income? No 10/20/2024 Does the household have a re gular source of income? (Household - for ages 0-17 years) Not on file 10/20/2024 Social Connections Answer Date Recorded How often do you feel lonely or isolated from th ose around you? Never 10/20/2024 Financial Resource Strain Answer Date R ecorded Do you have any trouble payi ng for your medications, or do you think you might in the future? No 10/20/2024 Does your family have troubl e paying for medicine? (Household - for ages 0-17 years) Not on file 10/20/2024 Transportation Needs Answer Date Record ed READ ONLY Do you have troubl e getting a ride to medical visits or work? Never True 10/20/2024 Does your family have a hard time getting a ride to doctors visits? (Household - for ages 0-17 years) Not on file 10/20/2024 Has lack of transportation k ept you from medical appointments, meetings, work, or from getting things needed for daily living? Check all that apply. No 10/20/2024 Do you (or your family) have trouble finding or paying for a ride (transportation)? (Household - for ages 0-17 years) Not on file 10/20/2024 Housing Stability Answer Date Recorded Do you currently live in a s helter or have no steady place to sleep at night? No 10/20/2024 READ ONLY Do you think you a re at risk of becoming homeless? No 10/20/2024 Does your family worry about paying for your home or becoming homeless? (Household - for ages 0-17 years) Not on file 0 10/20/2024 Are you homeless or worried that you might be in the future? No 10/20/2024 Are you (or your family) marko eless or worried that you might be in the future? (Household - for ages 0-17 years) Not on file Food Insecurity Answer Date Recorded Do you need food for this week? No 10/20/2024 Are you able to get enough f ood for your family? (Household - for ages 0-17 years) Not on file 10/20/2024 Does your family need food t his week? (Household - for ages 0-17 years) Not on file 10/20/2024 Do you always have enough fo od for your family? (Household - for ages 0-17 years) Not on file 10/20/2024 Food Insecurity Answer Date Recorded Within the past 12 months, y ou worried that your food would run out before you got the money to buy more. Never true 10/20/19 Within the past 12 months, t he food you bought just didn't last and you didn't have money to get more. Never true 10/20/2024 Do you need food for this week? No 10/20/2024 Comments No Sex and Gender Information Value Date Recorded Sex Assigned at Female 11/26/2022 1:41 PM EST Legal Sex Female 7:17 AM EST Gender Identity Female 11/26/2022 1:41 PM EST Sexual Orientation Straight 11/26/2022 1: 41 PM EST documented as of this encounter Plan of Treatment Upcoming Encounters Date Type Department Care Team (Late st Contact Info) Description 11/30/2024 1:00 PM EST Nurse Only Ancillary [address] [place] [address] [place], Nurse Annual [address] [place] [address] 11/30/2024 2:40 PM EST Office Visit Family Medicine [address] [place] [phone] Marcela Ramirez [address] [place] [address] 12/21/2024 1:45 PM EDT Imaging Radiology [address] [place] [phone] 12/28/2024 12:30 PM EDT Office Visit Cardiology [address] [place] [address] Graeme Pang PA-C [address] [place] [address] 04/22/2025 12:20 PM EDT Office Visit Dermatology [facility] [place] [address] [place] [address] Cindi Vo PA-C [address] [place] [address] 06/21/2025 1:40 PM EDT Office Visit Family Medicine [address] [phone] Rose Marie Galloway MD [address] [place] [address] [place] [address] 10/21/2025 1:00 PM EST Office Visit Optometry, [place] [address] [place] [address] Raudel Hernandez, MEHNAZ [address] [place] [address] Health Maintenance Due Date Last Done Comments Sigmoidoscopy 2002 Zoster Vaccines (1 of 2) 2007 Fecal Occult Blood Test 03/07/2011 03/07/20 10, 12/10/2001, 10/01/2000 Colonoscopy 12/28/2017 12/29/2007 *BISPHONATE OR OTHER ACCEPTABLE MEDICATION NEEDED FOR OSTEOPOROSIS (REFER TO SMARTSET #1146) 11/23/2022 Albumin/Creatinine Ratio 08/16/2023 08/16/2022 COVID-19 Vaccine ( season) 2024 02/12/2021, 01/15/2021 Influenza Vaccine (FLU shot) (#1) 2024 10/13/2008, 07/13/2007, 08/12/2006, Additional history exists DXA Scan 11/04/2024 11/04/2022, 11/04/2022 Adult Wellness Visit 11/27/2024 11/27/2023, 11/26/19 23 GFR 03/21/2025 09/20/2024, 05/07, 05/14/2024, Additional history exists CKD HGB USE SMARTSET 65854 05/14/202511/23, 05/14/2024, 11/12/2023, Additional history exists CKD PHOS USE SMARTSET 39651 05/25/202505/07, 12/24/2022, 12/05/2021, Additional history exists TSH 05/25/2025 05/25/2024, 04/2024, 09/25/2023, Additional history exists Cologuard 08/21/2025 08/21/2022, 05/2022, 08/13/2022, Additional history exists Colorectal Cancer Screening 08/21/2025 Depression Screening 10/20/2025 10/20/2024 Diabetes Screening 09/20/2027 09/20/2024, 0 05/25/2024, 05/14/2024, Additional history exists DTap/Tdap Vaccines (3 - Td or Tdap) 09/01/2028 09/01/2018, 03/14/2008 Lipid Panel 11/12/2028 11/12/2023, 12/05, 01/24/2022, Additional history exists Pap Smear Discontinued 03/26/2022, 03/06, 11/27/2015, Additional history exists Pneumococcal Vaccine: 50+ Years Completed 11/21/2022, 08/12/2006 VITAMIN D LEVEL ONCE IN A LIFETIME-USE SMARTSET# 12293 Completed 05/25/2024, 06/04/2023, 11/05/2022, Additional history exists HPV (Gardasil) Vaccine Aged Out No lo nger eligible based on patient's age to complete this topic Hepatitis B Vaccine Aged Out No longe r eligible based on patient's age to complete this topic MENINGOCOCCAL (MENACTRA/MENVEO) Aged Out No longer eligible based on patient's age to complete this topic Meningitis B Vaccine (Bexsero/Trumemba) Aged Out No longer eligible based on patient's age to complete this topic documented as of this encounter Medical Devices Implanted Type Area Cable Assembler Device Identifier Shelf Expiration Date Model / Serial / Lot Alloderm 6 X 16cm Implanted:Qty: 1 on 02/05/2007 at OR [facility] Right: Breast LIFE CELL MADDIE [id number] / [id number] / [id number] Description:Alloderm 6 x 16 cm to right breast [id number] - [id number] Implanted:Qty: 1 on 02/05/2007 at OR [facility] Left: Breast LIFE CELL MADDIE [id number] / [id number] / [id number] Description:ALLODERM TO left breast 6 x 16cm Markle Breast Implant Implanted:Qty: 1 on 02/05/2007 at OR [facility] Right: Breast MENTOR MADDIE 08/06/2010 [id number] / [id number] / [id number] Description:700ml Breast Imp lant to Right Breast Markle Breast Implant Implanted:Qty: 1 on 02/05/2007 at OR [facility] Left: Breast MENTOR MADDIE 08/06/2010 350-1697 / [id number] / [id number] Description:Markle Breast Im plant to Left BreaST Graft Fascia Nevin 2x3 [id number] - [id number] Implanted:Qty: 1 on 03/20/2010 at OR [facility] Right: Eye [employer] 06/06/2014 [id number] / / [id number] Breast Implant 350-1697 Saline - [id number] Implanted:Qty: 1 on 04/20/2011 at OR [facility] Right: Breast MENTOR MADDIE 04/04/2015 350-1697 / [id number] / [id number] Description:Markle smooth ro und moderate profile saline. Envelope Antibacteral Tyrx - [id number] Implanted:Qty: 1 on 05/14/2024 by Zulema Giordano IV, MD at [facility] [employer] : CRM [id number] 01/30/2025 [id number] / / [id number] Defib Mead Mri Quad White Sugar Supervisor-D - [id number] Implanted:Qty: 1 on 05/14/2024 by Zulema Giordano IV, MD at [facility] [employer] [id number] 07/03/2025 [id number] / [id number] / [id number] S Ring Morcher Type 14a Mr-1410 - [id number] Implanted:Qty: 1 on 08/17/2024 by Frank Zuñiga MD at OR [facility] Right: Eye MORCHER [id number] 04/04/2026 MR-1410 / [id number] / [id number] Lens 17.5 [id number] - [id number] Implanted:Qty: 1 on 08/17/2024 by Frank Zuñiga MD at OR [facility] Right: Eye ANNABELLE : SURGICAL [id number] 03/15/2029 [id number] / [id number] / [id number] documented as of this encounter Advance Directives * Full Code (Latest Code Status on File) Date Activated Date Inactivated Comments 08/17/2024 9:29 AM 08/17/2024 4:31 PM This order reflects the patients wishes and were consensually agreed upon. Question Answer Comments Discussion of Advance Directives occurred with: Patient * Full Code Date Activated Date Inactivated Comments 05/07/2022 9:34 AM 05/07/2022 4:59 PM Question Answer Comments Discussion of Advance Directives occurred with: Not Discussed * Full Code Date Activated Date Inactivated Comments 04/20/2011 11:51 AM 04/21/2011 2:05 PM This order reflects the patients wishes and were consensually agreed upon. Question Answer Comments Discussion of Advance Directives occurred with: Patient * Full Code Date Activated Date Inactivated Comments 03/11/2010 3:20 AM 03/17/2010 7:42 PM This order re flects the patients wishes and were consensually agreed upon. Care Teams Strand Galvanizer Relationship Specialty Start Date End Date Rose Marie Galloway MD [address] [place] [address] [place] [address] PCP - General Family Medicine 05/24/14 documented as of this encounter
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
--- OUTSIDE RECORDS SUMMARY | 2024-11-25 03:24 | External Medical Summary | Summary of Care ---
Author Name Unknown Organization [facility] Address [address] [place] [address] Phone [phone] Care Team Providers Care Change Control Specialist Name Role Phone Rose Marie Galloway MD Primary Care Provide r Reason for Visit * Reason Comments Outpatient Testing Encounter Details Date Type Department Care Team (Late st Contact Info) Description 11/23/2024 2:20 PM EST Laboratory Laboratory [address] [place] [phone] [place] [address] [place] Evian Other*[id number]; Heart failure, systolic, with acute decompensation (HCC); Encounter for long-term (current) use of medications; SOB (shortness of breath) Allergies Active Allergy Reactions Criticality Noted Date [...] Overview (12/04/2020): 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, [place] II, 11/2020) Hypertensive heart and kidne y [...] 08/23/2014 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 long term current use of anticoagulant therapy 0 05/12/2006 [...] (Moderna) 02/12/2021,01/15/2021 Pneumococcal Conjugate Vacci ne, 20-valent ([id number]) 11/21/2022 Pneumococcal Polysaccharide PPV23 (Pneumovax) 08/12/2006 Seasonal [...] 11/30/2024 1:00 PM EST Nurse Only Ancillary [address] [place] [address] Negro, Nurse [address] [place] [address] 11/30/2024 2:40 PM EST Office Visit Family Medicine [address] [place] [phone] Marcela Ramirez [address] [place] [address] 12/21/2024 1:45 PM EDT Imaging Radiology [address] [place] [phone] 12/28/2024 12:30 PM EDT Office Visit Cardiology [address] [place] [address] Graeme Pang PA-C [address] [place] [address] 04/22/2025 12:20 PM EDT Office Visit Dermatology [facility] [employer] [address] [place] [address] Cindi Vo PA-C [address] [place] [address] 06/21/2025 1:40 PM EDT Office Visit Family Medicine [address] [place] [phone] Rose Marie Galloway MD [address] [place] [address] [place] [address] 10/21/2025 1:00 PM EST Office Visit Optometry, [place] [address] [place] [address] Raudel Hernandez, MEHNAZ 16 [place] [address] Pending Results Name Type Priority Associated Diagnoses Date /Time MYCODE SUBSEQUENT ADULT Lab Routine MyCode Research Other*[id number] 11/23/2024 2:20 PM EST MAGNESIUM Lab Routine Heart failure, systolic, with acute decompensation (HCC) Encounter for long-term (current) use of medications 11/23/2024 2:20 PM EST CBC WITH WBC DIFFERENTIAL AND ANEMIA REFLEX WORKUP Lab Routine SOB (shortness of breath) 11/23/2024 2:20 PM EST COMPREHENSIVE METABOLIC PANEL Lab Routine SOB (shortness of breath) 11/23/2024 2:20 PM EST TSH WITH FREE T4 IF INDICATED Lab Routine SOB (shortness of breath) 11/23/2024 2:20 PM EST MYCODE SST1 Lab Routine MyCode Research Other*[id number] 11/23/2024 2:20 PM EST MYCODE SST2 Lab Routine MyCode Research Other*[id number] 11/23/2024 2:20 PM EST ANEMIA CBC Lab Routine SOB (shortness of breath) 11/23/2024 2:20 PM EST DIFFERENTIAL, AUTOMATED Lab Routine SOB (shortness of breath) 11/23/2024 2:20 PM EST ANEMIA REFLEX CHEMISTRY HOLD Lab Routine SOB (shortness of breath) 11/23/2024 2:20 PM EST Health Maintenance Due Date Last Done Comments [...] Additional history exists CKD HGB USE SMARTSET 52641 05/14/202505/14, 11/12/2023, 11/12/2023, Additional history exists CKD PHOS USE SMARTSET 75653 05/25/20252 , 12/24/2022, 12/05/2021, Additional history exists TSH 05/25/2025 [...] D LEVEL ONCE IN A LIFETIME-USE SMARTSET# 85910 Completed 05/25/2024, 06/04/2023, 11/05/2022, Additional history exists [...] this encounter Medical Devices Implanted Type Area Door To Door Fundraising Collector Device Identifier Shelf Expiration Date Model / Serial / Lot Alloderm 6 X 16cm Implanted:Qty: 1 on 02/05/2007 at [place] [facility] [place] Right: Breast LIFE CELL MADDIE [id number] / [id number] / [id number] Description:Alloderm 6 x 16 cm to right breast [id number] - [id number] Implanted:Qty: 1 on 02/05/2007 at [place] [facility] [place] Left: Breast LIFE CELL MADDIE [id number] / [id number] / [id number] Description:ALLODERM TO left breast 6 x 16cm [place] Breast Implant Implanted:Qty: 1 on 02/05/2007 at [place] [facility] [place] Right: Breast MENTOR MADDIE 08/06/2010 350-1697 / [id number] / [id number] Description:700ml Breast Imp lant to Right Breast [place] Breast Implant Implanted:Qty: 1 on 02/05/2007 at [place] [facility] [place] Left: Breast MENTOR MADDIE 08/06/2010 350-1697 / [id number] / [id number] Description:[place] Breast Im plant to Left BreaST Graft Fascia Nevin 2x3 10719 - [id number] Implanted:Qty: 1 on 03/20/2010 at [facility] Right: Eye IOP INC 06/06/2014 [id number] / / [id number] Breast Implant 350-1697 Saline - [id number] Implanted:Qty: 1 on 04/20/2011 at [place] [facility] [place] Right: Breast MENTOR MADDIE 04/04/2015 350-1697 / [id number] / [id number] Description:[place] smooth ro und moderate profile saline. Envelope Antibacteral Tyrx - [id number] Implanted:Qty: 1 on 05/14/2024 by Zulema Giordano IV, MD at [facility] [place] [employer] : CRM [id number] 01/30/2025 [id number] / / [id number] Defib [place] Mri Quad Camp Advisor-D - [id number] Implanted:Qty: 1 on 05/14/2024 by Zulema Giordano IV, MD at [facility] [place] [employer] [id number] 07/03/2025 [id number] / [id number] / [id number] S Ring Morcher Type 14a Mr-1410 - [id number] Implanted:Qty: 1 on 08/17/2024 by Frank Zuñiga MD at OR [facility] Right: Eye MORCHER [id number] 04/04/2026 MR-1410 / [id number] / [id number] Lens 17.5 [id number] - [id number] Implanted:Qty: 1 on 08/17/2024 by Frank Zuñiga MD at OR [facility] Right: Eye ANNABELLE : SURGICAL [id number] 03/15/2029 [id number] / [id number] / [id number] documented as of this encounter Visit Diagnoses Diagnosis MyCode Research Other*[id number] Heart failure, systolic, with acute decompensation (HCC) Acute on chronic systolic heart failure Encounter for long-term (current) use of medications Encounter for long-term (current) use of other medications SOB (shortness of breath) Shortness of breath documented in this encounter [...] and were consensually agreed upon. Care Teams Change Control Specialist Relationship Specialty Start Date End Date Rose Marie Galloway MD [address] [place] [address] [place] [address] PCP - General Family Medicine 05/24/14 documented as of this encounter
--- OUTSIDE RECORDS SUMMARY | 2024-11-25 03:24 | External Medical Summary ---
Author Name Unknown Address Unknown Organization K01:[facility] [place] [address] [place] [address] Laboratory Report Ordering Provider Test Date Status ANN PAIZ 11/23/2024 14:20:31 Final Observation Date Value Abnormality Reference (Units ) Status MYCODE SPECIMEN-SST 11/23/2024 14:20:31 Freezing of extracted DNA, whole blood and/or serum. Final Performing Location [facility] [place] [address] [place] [address]
--- OUTSIDE RECORDS SUMMARY | 2024-11-25 03:24 | External Medical Summary ---
Author Name Unknown Address Unknown Organization K01:[facility] [place] [address] [facility] [address] Laboratory Report Ordering Provider Test Date Status NELSON ZAVALA 11/23/2024 14:20:31 Final Observation Date Value Abnormality Reference (Units ) Status BUN 11/23/2024 14:20:31 28 Above high normal 6-20 (mg/dL) Final Creatinine 11/23/2024 14:20:31 1.8 Above high normal 0.5-1.0 (mg/dL) Final Glomerular filtration rate/1.73 sq M.predicted [Volume Rate/Area] in Serum, Plasma or Blood by Creatinine-based formula (CKD-EPI) 11/23/2024 14:20:31 31 Below low normal >=60 (mL/min) Final eGFR is calculated based on the CKD-EPI 2020 equation. Sodium 11/23/2024 14:20:31 137 135-146 (m mol/L) Final Potassium 11/23/2024 14:20:31 3.9 3.5-5.1 (m mol/L) Final Cl 11/23/2024 14:20:31 98 98-107 (mm ol/L) Final CO2 11/23/2024 14:20:31 23 22-32 (mmo l/L) Final Anion gap 11/23/2024 14:20:31 16 Above high normal 7- 15 (mmol/L) Final Glucose 11/23/2024 14:20:31 105 70-120 (mg /dL) Final Albumin 11/23/2024 14:20:31 4.0 3.8-5.0 (g /dL) Final AST (Aspartate aminotransferase) 11/23/2024 14:20:31 32 10-35 (U/L) Fin al Alk Phos 11/23/2024 14:20:31 80 35-130 (U/ L) Final Bilirubin, Total 11/23/2024 14:20:31 1.4 Above high no rmal <=1.2 (mg/dL) Final Calcium 11/23/2024 14:20:31 10.0 8.4-10.2 ( mg/dL) Final Protein 11/23/2024 14:20:31 6.6 6.0-8.3 (g /dL) Final ALT (Alanine aminotransferase) 11/23/2024 14:20:31 54 Above high normal 10-35 (U/L) Final Performing Location LABORATORY C - [address] [facility] [address]
--- OUTSIDE RECORDS SUMMARY | 2024-11-25 03:24 | External Medical Summary ---
Author Name Unknown Address Unknown Organization K01:[facility] [place] [address] [place] [address] Laboratory Report Ordering Provider Test Date Status NELSON ZAVALA 11/23/2024 14:20:31 Final Observation Date Value Abnormality Reference (Units ) Status WBC, Total 11/23/2024 14:20:31 9.29 4.00-10.8 0 (K/uL) Final RBC 11/23/2024 14:20:31 4.73 3.85-5.15 (M/uL) Final Hemoglobin 11/23/2024 14:20:31 14.3 12.0-15.3 (g/dL) Final Anemia reflex testing trigge rs on a HGB < 12.0 for Females and HGB < 13.0 for Males in accordance with the WHO Anemia Guidelines
Anemia reflex testing triggers on a HGB < 12.0 for Females and HGB < 13.0 for Males in accordance with the WHO Anemia Guidelines HCT 11/23/2024 14:20:31 44.8 36.0-45.2 (%) Final MCV 11/23/2024 14:20:31 94.7 81.5-97.5 (fL) Final MCH 11/23/2024 14:20:31 30.2 27.0-34.0 (pg) Final MCHC 11/23/2024 14:20:31 31.9 32.0-36.0 (g/dL) Final RDW 11/23/2024 14:20:31 16.2 11.5-15.5 (%) Final Platelets 11/23/2024 14:20:31 215 140-400 (K /uL) Final MPV 11/23/2024 14:20:31 11.8 6.6-11.1 ( fL) Final Nucleated erythrocytes/100 leukocytes [Ratio] in Blood by Automated count 11/23/2024 14:20:31 0 <=0 (/100 WBCs) Tigist rea Performing Location [facility] [place] [address] [facility] [address]
--- OUTSIDE RECORDS SUMMARY | 2024-11-25 03:24 | External Medical Summary | Summary of Care ---
Author Name Unknown Organization [facility] Address [address] [place] [address] Phone [phone] Care Team Providers Care Director Sales Name Role Phone Rose Marie Galloway MD Primary Care Provide r Reason for Visit * Reason Onset Date Comments Medication Question 11/03/2024 Encounter Details Date Type Department Care Team (Late st Contact Info) Description 11/03/2024 Telephone Cardiology, [facility] [address] [place] [address] Graeme Pang PA-C [address] [place] [address] Medication Question Allergies Active Allergy Reactions Criticality Noted Date Comments Docetaxel 02/14/2011 Chest pain, passed out , could not talk, saw silver round bubbles documented as of this encounter (statuses as of 11/18/2024) Medications OXYCODONE HCL 10 MG PO TABSIndications:p ain as needed Take by mouth every 8 hours as needed . Active Vitamin D3 50 MCG (1999) Oral Capsule Take 1 Capsule by mouth in the morning. 30 Capsule 5 11/21/19 23 Active Jardiance 10 MG Oral Tablet (Empagliflozin)In dications:Systoli c heart failure, chronic (HCC),Drug-induce d cardiomyopathy (HCC),HTN, goal below 140/90 TAKE 1 TABLET BY MOUTH EVERY DAY IN THE MORNING 90 Tablet 3 11/12/19 24 Active Levothyroxine Sodium 75 MCG Oral Tablet (Levoxyl)Indicati ons:Hypothyroidis m due to medication TAKE 1 TABLET BY MOUTH EVERY DAY AT LEAST 30 MIN BEFORE BREAKFAST OR OTHER MEDICATION 90 Tablet 3 05/06/20 24 Active Metoprolol Succinate ER 100 MG Oral Tablet Extended Release 24 Hour (toPROL XL)Indications:Pe rmanent atrial fibrillation (HCC),Drug-induce d cardiomyopathy (HCC),HTN, goal below 140/90 TAKE 1 TABLET BY MOUTH TWICE A DAY 180 Tablet 3 05/17/20 24 Active Rosuvastatin Calcium 20 MG Oral Tablet (Crestor)Indicati ons:Dyslipidemia, goal LDL below 100 TAKE 1 TABLET BY MOUTH EVERY DAY 90 Tablet 3 05/21/20 24 Active Eliquis 5 MG Oral Tablet (Apixaban)Indicat ions:Permanent atrial fibrillation (HCC) TAKE 1 TABLET BY MOUTH TWICE A DAY 180 Tablet 1 08/11/20 24 Active Spironolactone 25 MG Oral Tablet (Aldactone)Indica tions:HTN, goal below 140/90,Heart failure, systolic, with acute decompensation (HCC) Take 0.5 Tablets by mouth once a day on Friday, Friday, and Friday only. 19 Tablet 3 08/13/20 24 Active Furosemide 40 MG Oral Tablet (Lasix)Indication s:Hypokalemia,Hea rt failure, systolic, with acute decompensation (HCC) TAKE 1 TABLET EVERY OTHER DAY, OR DIRECTED 45 Tablet 3 11/12/19 24 2024 Discontinued documented as of this encounter (statuses as of 11/18/2024) Active Problems Problem Noted Date Diagnosed Date NICM (nonischemic cardiomyopathy) 04/19/2024 ICD (implantable cardioverter-defibrillator) in place 04/19/2024 Chronic kidney disease, stage 3b 11/18/2022 Overview: Per CKD protocol Osteoporosis, postmenopausal 11/05/2022 Permanent atrial fibrillation 11/05/2022 Peripheral vascular disease 10/23/2021 Hx of melanoma of skin 12/04/2020 Overview (12/04/2020): 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, [place] II, 11/2020) Hypertensive heart and kidne y [...] 08/23/2014 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 snf current use of anticoagulant therapy 0 05/12/2006 Overview (07/07/2017): ICD-10 update of inactive term History of breast cancer 03/28/2006 Family history of other cardiovascular diseases 05/14/2005 Overview (12/28/2015): ICD-10 update of inactive term FAMILY HX-BREAST MALIG 05/14/2005 HTN, goal below 140/90 06/26/2001 Blindness of left eye documented as of this encounter (statuses as of 11/18/2024) Resolved Problems Problem Noted Date Diagnosed Date [...] as of this encounter (statuses as of 11/18/2024) Immunizations Name Administration Dates Next Due COVID-19 mRNA, LNP-s, No Pre serve, 2-Dose Series (Moderna) 02/12/2021,01/15/2021 Pneumococcal Conjugate Vacci ne, 20-valent (Ydtjwor38) 11/21/2022 Pneumococcal Polysaccharide PPV23 (Pneumovax) 08/12/2006 Seasonal Influenza Vac., MDV , IM, 0.5 mL (Fluzone) 10/13/2008,07/13/2007,08/12/2006,04/2003,08/09/2002 08/09/2003 TDAP (age 10 and older)(Boostrix) 09/01/2018 TDAP, [...] PM EST documented as of this encounter Miscellaneous Notes * Telephone Encounter - Mami Booth RPh - 11/17/2024 4:55 PM EST Please provide update on referral. Last referral update 11/03. [facility] forms were received 11/10 and no 2 week f/u was completed. Marking high priority given Eliquis free trial card has already been used. Mami Booth PharmD Clinical Pharmacist - Mri Manager [facility] 11/17/2024 4:56 PM * Telephone Encounter - Mami Booth RPh - 11/10/2024 2:58 PM EST Patient called in stating she faxed forms to [phone] around 1 PM, now checking to confirm it was received. Melvina confirmed receipt. Patient updated. Mami Booth PharmD Clinical Pharmacist - Mri Manager [facility] 11/10/2024 2:58 PM * Telephone Encounter - Mami Booth [facility] - 11/09/2024 4:05 PM EST Called and spoke with patient. Has 7 Eliquis tablets left. Did not receive [facility]mer forms yet, home address confirmed. Does not think she could print from email so will have to wait for delivery. May be able to have son or friend fax forms back for her once completed. Not able to travel to cardio office d/t car issues. Was able to apply Eliquis 30 day free trial card at [facility]. Updated patient. She will let us know if she does not receive forms by end of this week. Mami Booth, PharmD Clinical Pharmacist - Mri Manager [facility] 11/09/2024 4:17 PM * Telephone Encounter - Audrey Reynolds OSA - 11/09/2024 2:03 PM EST Person calling: Kayce Relationship to patient: self Phone/Fax to return call: [phone] Reason for call(brief): Eliquis Pharmacy: [facility] Provider Name:Graeme Pang Detailed message to office:Patient checking on status of getting financial help with Eliquis. Please advise. Thanks * Telephone Encounter - Roula Covarrubias OSA - 11/03/2024 6:27 PM EST Patient Assistance Name of Medication: Ozempic/Jardiance Was patient spoken to: : YES Type of assistance: Pharmacy [facility] Applications mailed: : YES Follow up: Called and spoke to member, applications mailed and I will FU in 2 weeks to make sure applications were received and if there is any questions Roula Covarrubias Medication Facility Specialist II [facility] 11/03/2024,6:27 PM * Telephone Encounter - Iman Meyer RPh - 11/03/2024 4:10 PM EST MTM can help with this cost assistance. Will send to the pharmacy reimbursement team. Please help assist in screening the patient for cost assistance for both the patient's jardiance and Eliquis. Thanks, Iman Meyer PharmD Clinical Pharmacist 11/03/2024 4:12 PM * Telephone Encounter - Idalmis Vega CMA - 11/03/2024 1:49 PM EST Called 30-day free trial into [facility] pharmacy. Brisa - are you able to help with further cost assistance? [facility] Pharmacist also mentioned new medicare program where patients are able to split drug copay up into monthly payments. [facility] attached a handout to patient's prescription with information regarding this program. Called patient to make aware that 30-day free trial is available at pharmacy for pick-up. She stated that she believes her Eliquis copay is going to be unaffordable as well. She states she only makes$800/month and that her copays would be her entire income. She stated she has a lot of medical debtright now and lives on fixed income. She may be a candidate for PACE. Please advise. * Telephone Encounter - Yulisa Zapata PHARM Tech - 11/03/2024 1:10 PM EST Incoming call from patient regarding Jardiance prescription. Patient stated that she went to bean picker the medication and was informed that it would cost over $800. Patient stated she cannot afford that and is asking if there is some type of copay assistance or if there is an alternative medication that is less expensive. Patient can be reached at [phone]. Thank you, Yulisa Zapata Floor Clerk I [facility] 11/03/2024,1:12 PM * Telephone Encounter - Katlyn Jacobs CPhT - 11/03/2024 1:05 PM EST Pt calling regarding Jardiance, last prescribed by Cardiology. Transferred to specialty tech line for further assistance. Thank you, Katlyn Jacobs CPhT Photovoltaic Testing Technician II [facility] 11/03/2024,1:06 PM documented in this encounter Plan of Treatment Upcoming Encounters Date Type Department Care Team (Late st Contact Info) Description 11/30/2024 1:00 PM EST Nurse Only Ancillary [address] [place] [address] [place], Nurse [address] [place] [address] 11/30/2024 2:40 PM EST Office Visit Family Medicine [address] [place] [phone] Marcela Ramirez [address] [place] [address] 12/28/2024 12:30 PM EDT Office Visit Cardiology [address] [place] [address] Graeme Pang PA-C [address] [place] [address] 04/22/2025 12:20 PM EDT Office Visit Dermatology [facility] [place] [address] [place] [address] Cindi Vo PA-C [address] [place] [address] 06/21/2025 1:40 PM EDT Office Visit Family Medicine [address] [place] [phone] Rose Marie Galloway MD [address] [place] [address] [place] [address] 10/21/2025 1:00 PM EST Office Visit Optometry, [place] 16 [place] [address] Raudel Hernandez, OD 16 [place] [address] Health Maintenance Due Date Last Done Comments [...] Additional history exists CKD HGB USE SMARTSET 68552 05/14/202505/14, 11/12/2023, 11/12/2023, Additional history exists CKD PHOS USE SMARTSET 18508 05/25/2025 08, 12/24/2022, 12/05/2021, Additional history exists TSH 05/25/2025 05/25/2024, 0204/2024, 09/25/2023, Additional history exists Cologuard 08/21/2025 08/21/2022, 11/05/2022, 08/13/2022, Additional history exists Colorectal Cancer Screening [...] D LEVEL ONCE IN A LIFETIME-USE SMARTSET# 18064 Completed 05/25/2024, 06/04/2023, 11/05/2022, Additional history exists [...] this encounter Medical Devices Implanted Type Area Silviculturist Device Identifier Shelf Expiration Date Model / Serial / Lot Alloderm 6 X 16cm Implanted:Qty: 1 on 02/05/[place] [facility] [place] Breast LIFE CELL MADDIE [id number] / [id number] / [id number] Description:Alloderm 6 x 16 cm to right breast [id number] - [id number] Implanted:Qty: 1 on 02/05/2007 [place] [facility] [place]: Breast LIFE CELL MADDIE [id number] / [id number] / [id number] Description:ALLODERM TO left breast 6 x 16cm [place] Breast Implant Implanted:Qty: 1 on 02/05/2007 [place] [facility] [place]: Breast MENTOR MADDIE 08/06/2010 350-1697 / [id number] / [id number] Description:700ml Breast Imp lant to Right Breast [place] Breast Implant Implanted:Qty: 1 on 02/05/2007 [place] [facility] [place]: Breast MENTOR MADDIE 08/06/2010 350-1697 / [id number] / [id number] Description:[place] Breast Im plant to Left BreaST Graft Fascia Nevin 2x3 03423 - [id number] Implanted:Qty: 1 on 03/20/2010 at OR [facility] Right: Eye IOP INC 06/06/2014 59986 / / [id number] Breast Implant 350-1697 Saline - [id number] Implanted:Qty: 1 on 04/20/2011 at [place] [facility] [place]: Breast MENTOR MADDIE 04/04/2015 350-1697 / [id number] / [id number] Description:[place] smooth ro und moderate profile saline. Envelope Antibacteral Tyrx - [id number] Implanted:Qty: 1 on 05/14/2024 by Zulema Giordano IV, MD at [facility] [place] [employer] : CRM [id number] 01/30/2025 CMRM6 133 / / [id number] Defib [place] Mri Quad Cartridge Assembler-D - [id number] Implanted:Qty: 1 on 05/14/2024 by Zulema Giordano IV, MD at [facility] [place] [employer] [id number] 07/03/2025 [id number] / [id number] / [id number] S Ring Morcher Type 14a Mr-1410 - [id number] Implanted:Qty: 1 on 08/17/2024 by Frank Zuñiga MD at [facility] Right: Eye MORCHER [id number] 04/04/2026 MR-1410 / [id number] / [id number] Lens 17.5 [id number] - [id number] Implanted:Qty: 1 on 08/17/2024 by Frank Zuñiga MD at OR [facility] Right: Eye ANNABELLE : SURGICAL [id number] 03/15/2029 [id number] / [id number] / [id number] documented as of this encounter Advance [...] and were consensually agreed upon. Care Teams Director Sales Relationship Specialty Start Date End Date Rose Marie Galloway MD [address] [place] [address] [place] [address] PCP - General Family Medicine 05/24/14 documented as of this encounter
--- OUTSIDE RECORDS SUMMARY | 2024-11-25 03:24 | External Medical Summary | Summary of Care ---
Author Name Unknown Organization [facility] Address [address] [place] [address] Phone [phone] Care Team Providers Care Ornamental Metal Erector Apprentice Name Role Phone Rose Marie Galloway MD Primary Care Provide r Reason for Visit * Reason Onset Date Comments Medication Question 11/03/2024 Encounter Details Date Type Department Care Team (Late st Contact Info) Description 11/03/2024 Telephone Cardiology, [facility] [address] [place] [address] Graeme Pang PA-C [address] [place] [address] Medication Question Allergies Active Allergy Reactions Criticality [...] Overview (12/04/2020): 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, [place] II, 11/2020) Hypertensive heart and kidne y [...] 08/23/2014 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 alf current use of anticoagulant therapy 0 05/12/2006 [...] (Moderna) 02/12/2021,01/15/2021 Pneumococcal Conjugate Vacci ne, 20-valent (Crecdsa29) 11/21/2022 Pneumococcal Polysaccharide PPV23 (Pneumovax) 08/12/2006 Seasonal [...] encounter Miscellaneous Notes * Telephone Encounter - Roula Covarrubias OSA - 11/18/2024 10:30 AM EST Member was approved for pharmacy Chairty * Telephone Encounter - Mami Booth RPh - 11/17/2024 4:55 PM EST Please provide update on referral. Last referral update 11/03. Delmer forms were received 11/10 and no 2 week f/u was completed. Marking high priority given Eliquis free trial card has already been used. Mami Booth, PharmD Clinical Pharmacist - Shoe Sewing Machine Operator And Tender [facility] 11/17/2024 4:56 PM * Telephone Encounter - Mami Booth RPh - 11/10/2024 2:58 PM EST Patient called in stating she faxed forms to [phone] around 1 PM, now checking to confirm it was received. Melvina confirmed receipt. Patient updated. Mami Booth PharmD Clinical Pharmacist - Shoe Sewing Machine Operator And Tender [facility] 11/10/2024 2:58 PM * Telephone Encounter - Mami Booth RP - 11/09/2024 4:05 PM EST Called and [...] Eliquis 30 day free trial card at [facility]. Updated patient. She will let us know if she does not receive forms by end of this week. Mami Booth PharmD Clinical Pharmacist - Shoe Sewing Machine Operator And Tender [facility] 11/09/2024 4:17 PM * Telephone Encounter - Audrey Reynolds OSA - 11/09/2024 2:03 PM EST Person calling: Kayce Relationship to patient: self Phone/Fax to return call: [phone] Reason for call(brief): [facility]: [facility] Provider Name:Graeme Pang Detailed message to office:Patient [...] there is any questions Roula Covarrubias Medication Driver Merchandiser II [facility] 11/03/2024,6:27 PM * Telephone Encounter - Iman [...] PM EST Called 30-day free trial into [facility] pharmacy. Brisa - are you able to help with further cost assistance? [facility] Pharmacist also mentioned new medicare program where patients are able to split drug copay up into monthly payments. [facility] attached a handout to patient's prescription with [...] prescription. Patient stated that she went to sweet pickle maker the medication and was informed that it would cost over $800. Patient stated she cannot afford that and is asking if there is some type of copay assistance or if there is an alternative medication that is less expensive. Patient can be reached at [phone]. Thank you, Yulisa Zpaata Patient Ambassador I [facility] ([facility]) 11/03/2024,1:12 PM * Telephone Encounter - Katlyn Jacobs CPhT - 11/03/2024 1:05 PM EST Pt calling regarding Jardiance, last prescribed by Cardiology. Transferred to specialty tech line for further assistance. Thank you, Katlyn Jacobs CPhT Orange Picker Machine Operator II [facility] ([facility]) 11/03/2024,1:06 PM documented in this encounter Plan of Treatment Upcoming Encounters Date Type Department Care Team (Late st Contact Info) Description 11/30/2024 1:00 PM EST Nurse Only Ancillary [address] [place] [address] [place], Nurse [address] [place] [address] 11/30/2024 2:40 PM EST Office Visit Family Medicine [address] [place] [phone] Marcela Ramirez [address] [place] [address] 12/28/2024 12:30 PM EDT Office Visit Cardiology [address] [place] [address] Graeme Pang PA-C [address] [place] [address] 04/22/2025 12:20 PM EDT Office Visit Dermatology [facility] [address] [address] Cindi Vo PA-C [address] [place] [address] 06/21/2025 1:40 PM EDT Office Visit [address] [place] [address] Rose Marie Galloway MD [address] [place] [address] [place] [address] 10/21/2025 1:00 PM EST Office Visit Optometry, [address] [address] Raudel Hernandez, [address] [place] [address] Health Maintenance Due Date Last Done Comments [...] Additional history exists CKD HGB USE SMARTSET 79234 05/14/202505/14, 11/12/2023, 11/12/2023, Additional history exists CKD PHOS USE SMARTSET 46079 05/25/20252 , 12/24/2022, 12/05/2021, Additional history exists [...] D LEVEL ONCE IN A LIFETIME-USE SMARTSET# 96244 Completed 05/25/2024, 06/04/2023, 11/05/2022, Additional history exists [...] this encounter Medical Devices Implanted Type Area Quarry Boss Device Identifier Shelf Expiration Date Model / Serial / Lot Alloderm 6 X 16cm Implanted:Qty: 1 on 02/05/2007 at OR [facility] Right: Breast LIFE CELL MADDIE [id number] / [id number] / [id number] Description:Alloderm 6 x 16 cm to right breast [id number] - [id number] Implanted:Qty: 1 on 02/05/2007 at OR [facility] Left: Breast LIFE CELL MADDIE [id number] / [id number] / [id number] Description:ALLODERM TO left breast 6 x 16cm Piedmont Breast Implant Implanted:Qty: 1 on 02/05/2007 at OR [facility] Right: Breast MENTOR MADDIE 08/06/2010 350-1697 / [id number] / [id number] Description:700ml Breast Imp lant to Right Breast Piedmont Breast Implant Implanted:Qty: 1 on 02/05/2007 at OR [facility] Left: Breast MENTOR MADDIE 08/06/2010 350-1697 / [id number] / [id number] Description:Piedmont Breast Im plant to Left BreaST Graft Fascia Nevin 2x3 05933 - [id number] Implanted:Qty: 1 on 03/20/2010 at OR [facility] Right: Eye [employer] 06/06/2014 [id number] / / [id number] Breast Implant 350-1697 Saline - [id number] Implanted:Qty: 1 on 04/20/2011 at OR [facility] Right: Breast MENTOR MADDIE 04/04/2015 350-1697 / [id number] / [id number] Description:Piedmont smooth ro und moderate profile saline. Envelope Antibacteral Tyrx - [id number] Implanted:Qty: 1 on 05/14/2024 by Zulema Giordano IV, MD at [facility] [employer] : CRM [id number] 01/30/2025 CMRM6 133 / / [id number] Defib Odell Mri Quad Bilingual Instructor-D - [id number] Implanted:Qty: 1 on 05/14/2024 by Zulema Giordano IV, MD at [facility] [employer] [id number] 07/03/2025 [id number] / [id number] / [id number] S Ring Morcher Type 14a Mr-1410 - [id number] Implanted:Qty: 1 on 08/17/2024 by Frank Zuñiga MD at OR [facility] Right: Eye MORCHER [id number] 04/04/2026 MR-1410 / [id number] / [id number] Lens 17.5 [id number] - [id number] Implanted:Qty: 1 on 08/17/2024 by Frank Zuñiga MD at OR [facility] Right: Eye ANNABELLE : SURGICAL [id number] 03/15/2029 [id number] / [id number] / [id number] documented as of this encounter Advance [...] and were consensually agreed upon. Care Teams Ornamental Metal Erector Apprentice Relationship Specialty Start Date End Date Rose Marie Galloway MD [address] [place] [address] [place] [address] PCP - General Family Medicine 05/24/14 documented as of this encounter
--- OUTSIDE RECORDS SUMMARY | 2024-11-25 03:24 | External Medical Summary | Summary of Care ---
Author Name Unknown Organization [facility] Address [address] [place] [address] Phone [phone] Care Team Providers Care Cotton Inspector Name Role Phone Rose Marie Galloway MD Primary Care Provide r Reason for Visit * Reason Onset Date Comments Medication Question 11/03/2024 Encounter Details Date Type Department Care Team (Late st Contact Info) Description 11/03/2024 Telephone Cardiology, [facility] [address] [place] [address] Graeme Pang PA-C [address] [place] [address] Medication Question Allergies Active Allergy Reactions Criticality [...] Overview (12/04/2020): 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, [place] II, 11/2020) Hypertensive heart and kidne y [...] 08/23/2014 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 halfway current use of anticoagulant therapy 0 05/12/2006 [...] (Moderna) 02/12/2021,01/15/2021 Pneumococcal Conjugate Vacci ne, 20-valent (Rilhgby66) 11/21/2022 Pneumococcal Polysaccharide PPV23 (Pneumovax) 08/12/2006 Seasonal [...] used. Mami Booth, PharmD Clinical Pharmacist - Graphic Specialist [facility] 11/17/2024 4:56 PM * Telephone Encounter - Mami Booth RPh - 11/10/2024 2:58 PM EST Patient called in stating she faxed forms to [phone] around 1 PM, now checking to confirm it was received. Melvina confirmed receipt. Patient updated. Mami Booth PharmD Clinical Pharmacist - Graphic Specialist [facility] 11/10/2024 2:58 PM [...] Eliquis 30 day free trial card at [facility]. Updated patient. She will let us know if she does not receive forms by end of this week. Mami Booth PharmD Clinical Pharmacist - Graphic Specialist [facility] 11/09/2024 4:17 PM * Telephone Encounter - Audrey Reynolds OSA - 11/09/2024 2:03 PM EST Person calling: Kayce Relationship to patient: self Phone/Fax to return call: [phone] Reason for call(brief): [facility]: [facility] Provider Name:Graeme Pang Detailed message to office:Patient [...] there is any questions Roula Covarrubias Medication Infection Control Rn II [facility] 11/03/2024,6:27 PM * Telephone Encounter [...] PM EST Called 30-day free trial into [facility] pharmacy. Brisa - are you able to help with further cost assistance? [facility] Pharmacist also mentioned new medicare program where patients are able to split drug copay up into monthly payments. [facility] attached a handout to patient's prescription with [...] prescription. Patient stated that she went to pick remover the medication and was informed that it would cost over $800. Patient stated she cannot afford that and is asking if there is some type of copay assistance or if there is an alternative medication that is less expensive. Patient can be reached at [phone]. Thank you, Yulisa Zapata Merchandising Coordinator I [facility] ([facility]) 11/03/2024,1:12 PM * Telephone Encounter - Katlyn Jacobs CPhT - 11/03/2024 1:05 PM EST Pt calling regarding Jardiance, last prescribed by Cardiology. Transferred to specialty tech line for further assistance. Thank you, Katlyn Jacobs CPhT Aviation Support Equipment Repairer II [facility] ([facility]) 11/03/2024,1:06 PM documented in this encounter Plan of Treatment Upcoming Encounters Date Type Department Care Team (Late st Contact Info) Description 11/30/2024 1:00 PM EST Nurse Only Ancillary [address] [place] [address] [place], Nurse [address] [place] [address] 11/30/2024 2:40 PM EST Office Visit Family Medicine [address] [place] [phone] Marcela Ramirez [address] [place] [address] 12/28/2024 12:30 PM EDT Office Visit Cardiology [address] [place] [address] Graeme Pang PA-C [address] [place] [address] 04/22/2025 12:20 PM EDT Office Visit Dermatology [facility] [address] [address] Cindi Vo PA-C [address] [place] [address] 06/21/2025 1:40 PM EDT Office Visit [address] [place] [address] Rose Marie Galloway MD [address] [place] [address] [place] [address] 10/21/2025 1:00 PM EST Office Visit Optometry, [address] [address] Raudel Hernandez, [address] [place] [address] Health Maintenance Due Date Last Done Comments [...] Additional history exists CKD HGB USE SMARTSET 78462 05/14/202505/14, 11/12/2023, 11/12/2023, Additional history exists CKD PHOS USE SMARTSET 77097 05/25/20252 , 12/24/2022, 12/05/2021, Additional history exists [...] D LEVEL ONCE IN A LIFETIME-USE SMARTSET# 98216 Completed 05/25/2024, 06/04/2023, 11/05/2022, Additional history exists [...] this encounter Medical Devices Implanted Type Area Is Consultant Device Identifier Shelf Expiration Date Model / Serial / Lot Alloderm 6 X 16cm Implanted:Qty: 1 on 02/05/2007 at [place] [facility] Right: Breast LIFE CELL MADDIE [id number] / [id number] / [id number] Description:Alloderm 6 x 16 cm to right breast [id number] - [id number] Implanted:Qty: 1 on 02/05/2007 at [place] [facility] Left: Breast LIFE CELL MADDIE [id number] / [id number] / [id number] Description:ALLODERM TO left breast 6 x 16cm Stark Breast Implant Implanted:Qty: 1 on 02/05/2007 at [place] [facility] Right: Breast MENTOR MADDIE 08/06/2010 350-1697 / [id number] / [id number] Description:700ml Breast Imp lant to Right Breast Stark Breast Implant Implanted:Qty: 1 on 02/05/2007 at [place] [facility] Left: Breast MENTOR MADDIE 08/06/2010 350-1697 / [id number] / [id number] Description:Stark Breast Im plant to Left BreaST Graft Fascia Nevin 2x3 32331 - [id number] Implanted:Qty: 1 on 03/20/2010 at OR [facility] Right: Eye IOP INC 06/06/2014 26945 / / [id number] Breast Implant 350-1697 Saline - [id number] Implanted:Qty: 1 on 04/20/2011 at [place] [facility] Right: Breast MENTOR MADDIE 04/04/2015 350-1697 / [id number] / [id number] Description:Stark smooth ro und moderate profile saline. Envelope Antibacteral Tyrx - [id number] Implanted:Qty: 1 on 05/14/2024 by Zulema Giordano IV, MD at [facility] [employer] : CRM [id number] 01/30/2025 CMRM6 133 / / [id number] Defib Ludell Mri Quad Facilities Maintenance Manager-D - [id number] Implanted:Qty: 1 on 05/14/2024 by Zulema Giordano IV, MD at [facility] [employer] [id number] 07/03/2025 [id number] / [id number] / [id number] S Ring Morcher Type 14a Mr-1410 - [id number] Implanted:Qty: 1 on 08/17/2024 by Frank Zuñiga MD at OR [facility] Right: Eye MORCHER [id number] 04/04/2026 MR-1410 / [id number] / [id number] Lens 17.5 [id number] - [id number] Implanted:Qty: 1 on 08/17/2024 by Frank Zuñiga MD at OR [facility] Right: Eye ANNABELLE : SURGICAL [id number] 03/15/2029 [id number] / [id number] / [id number] documented as of this encounter Advance [...] and were consensually agreed upon. Care Teams Cotton Inspector Relationship Specialty Start Date End Date Rose Marie Galloway MD [address] [place] [address] [place] [address] PCP - General Family Medicine 05/24/14 documented as of this encounter
--- OUTSIDE RECORDS SUMMARY | 2024-11-25 03:24 | External Medical Summary ---
Author Name Unknown Address Unknown Organization K01:[facility] - [address] [place] [id number] Laboratory Report Ordering Provider Test Date Status BOBSARAHFABY 11/23/2024 14:20:31 Final Observation Date Value Abnormality Reference (Units ) Status Magnesium 11/23/2024 14:20:31 2.4 1.5-2.6 (m g/dL) Final Performing Location [facility] [place] [address] [place] [id number]
--- OUTSIDE RECORDS SUMMARY | 2024-11-25 03:24 | External Medical Summary ---
Author Name Unknown Address Unknown Organization K01:[facility] [place] - [address] [place] [address] Laboratory Report Ordering Provider Test Date Status NELSON ZAVALA 11/23/2024 14:20:31 Final Observation Date Value Abnormality Reference (Units ) Status TSH 11/23/2024 14:20:31 3.09 0.27-4.20 (uIU/mL) Final Performing Location [facility] - [address] [place] [address]
--- OUTSIDE RECORDS SUMMARY | 2024-11-25 03:24 | External Medical Summary | Summary of Care ---
Author Name Unknown Organization [facility] Address [address] [place] [address] Phone [phone] Care Team Providers Care Operations Lieutenant Name Role Phone Rose Marie Galloway MD Primary Care Provide r Reason for Visit * Reason Onset Date Comments Medication Question 11/03/2024 Encounter Details Date Type Department Care Team (Late st Contact Info) Description 11/03/2024 Telephone Cardiology, [facility] [address] [place] [address] Graeme Pang PA-C [address] [place] [address] Medication Question Allergies Active Allergy Reactions Criticality Noted Date Comments Docetaxel 02/14/2011 Chest pain, passed out , could not talk, saw silver round bubbles documented as of this encounter (statuses as of 11/11/2024) Medications OXYCODONE HCL 10 MG PO TABSIndications:p [...] as of this encounter (statuses as of 11/11/2024) Active Problems Problem Noted Date Diagnosed Date NICM (nonischemic cardiomyopathy) 04/19/2024 ICD (implantable cardioverter-defibrillator) in place 04/19/2024 Chronic kidney disease, stage 3b 11/18/2022 Overview: Per CKD protocol Osteoporosis, postmenopausal 11/05/2022 Permanent atrial fibrillation 11/05/2022 Peripheral vascular disease 10/23/2021 Hx of melanoma of skin 12/04/2020 Overview (12/04/2020): 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, [place] II, 11/2020) Hypertensive heart and kidne y [...] 08/23/2014 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 Jnyvmng-Vgach-Dxqmi disease 12/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 [facility] current use of anticoagulant therapy 0 05/12/2006 Overview (07/07/2017): ICD-10 update of inactive term History of breast cancer 03/28/2006 Family history of other cardiovascular diseases 05/14/2005 Overview (12/28/2015): ICD-10 update of inactive term FAMILY HX-BREAST MALIG 05/14/2005 HTN, goal below 140/90 06/26/2001 Blindness of left eye documented as of this encounter (statuses as of 11/11/2024) Resolved Problems Problem Noted Date Diagnosed Date [...] as of this encounter (statuses as of 11/11/2024) Immunizations Name Administration Dates Next Due COVID-19 mRNA, LNP-s, No Pre serve, 2-Dose Series (Moderna) 02/12/2021,01/15/2021 Pneumococcal Conjugate Vacci ne, 20-valent ([id number]) 11/21/2022 Pneumococcal Polysaccharide PPV23 (Pneumovax) 08/12/2006 Seasonal [...] called in stating she faxed forms to [phone] around 1 PM, now checking to confirm it was received. Melvina confirmed receipt. Patient updated. Mami Booth, PharmD Clinical Pharmacist - Director Of Health Care Marketing [facility] 11/10/2024 2:58 PM * Telephone Encounter - Mami Booth RPh - 11/09/2024 4:05 PM EST Called and [...] Eliquis 30 day free trial card at [facility]. Updated patient. She will let us know if she does not receive forms by end of this week. Mami Booth PharmD Clinical Pharmacist - Director Of Health Care Marketing [facility] 11/09/2024 4:17 PM * Telephone Encounter - Audrey Reynolds OSA - 11/09/2024 2:03 PM EST Person calling: Kayce Relationship to patient: self Phone/Fax to return call: [phone] Reason for call(brief): Eliquis Pharmacy: [facility] Provider Name:Graeme Pang Detailed message to [...] there is any questions Roula Covarrubias Medication Antenna Specialist II [facility] 11/03/2024,6:27 PM * Telephone Encounter - Iman [...] PM EST Called 30-day free trial into [facility] pharmacy. Brisa - are you able to help with further cost assistance? [facility] Pharmacist also mentioned new medicare program where patients are able to split drug copay up into monthly payments. [facility] attached a handout to patient's prescription [...] less expensive. Patient can be reached at [phone]. Thank you, Yulisa Zapata Net Fisher I [facility] 11/03/2024,1:12 PM * Telephone Encounter - Katlyn Jacobs CPhT - 11/03/2024 1:05 PM EST Pt calling regarding Jardiance, last prescribed by Cardiology. Transferred to specialty tech line for further assistance. Thank you, Katlyn Jacobs CPhT Independent Freight Agent II [facility] 11/03/2024,1:06 PM documented in this encounter Plan of Treatment Upcoming Encounters Date Type Department Care Team (Late st Contact Info) Description 11/30/2024 1:00 PM EST Nurse Only Ancillary [address] [place] [address] [place], Nurse Annual [address] [place] [address] 11/30/2024 2:40 PM EST Office Visit Family Medicine [address] [place] [phone] Marcela Ramirez [address] [place] [address] 12/28/2024 12:30 PM EDT Office Visit Cardiology [address] [place] [address] Graeme Pang PA-C [address] [place] [address] 04/22/2025 12:20 PM EDT Office Visit Dermatology [facility] [address] [facility] [place] [address] Cindi Vo PA-C [address] [place] [address] 06/21/2025 1:40 PM EDT Office Visit Family Medicine [address] [place] [phone] Rose Marie Galloway MD [address] [place] [address] [place] [address] 10/21/2025 1:00 PM EST Office Visit Optometry, [place] [address] [place], [place] [phone] Raudel Hernandez, [place] [address] [place] [address] [phone] (work) Health Maintenance Due Date Last Done Comments [...] Additional history exists CKD HGB USE SMARTSET 79949 05/14/202505/14, 11/12/2023, 11/12/2023, Additional history exists CKD PHOS USE SMARTSET 79396 05/25/2025 082 , 12/24/2022, 12/05/2021, Additional history exists TSH 05/25/2025 05/25/2024, 02/0 04/2024, 09/25/2023, Additional history exists Cologuard 08/21/2025 08/21/2022, 11/0 05/2022, 08/13/2022, Additional history exists Colorectal Cancer [...] D LEVEL ONCE IN A LIFETIME-USE SMARTSET# 39679 Completed 05/25/2024, 06/04/2023, 11/05/2022, Additional history exists [...] this encounter Medical Devices Implanted Type Area Plastic Surgery Technician Device Identifier Shelf Expiration Date Model / Serial / Lot Alloderm 6 X 16cm Implanted:Qty: 1 on 02/05/2007 at OR [facility] [place] Right: Breast LIFE CELL MADDIE [id number] / [id number] / [id number] Description:Alloderm 6 x 16 cm to right breast [id number] - [id number] Implanted:Qty: 1 on 02/05/2007 at OR [facility] [place] Left: Breast LIFE CELL MADDIE [id number] / [id number] / [id number] Description:ALLODERM TO left breast 6 x 16cm Superior Breast Implant Implanted:Qty: 1 on 02/05/2007 at OR [facility] [place] [facility] Right: Breast MENTOR MADDIE 08/06/2010 350-1697 / [id number] / [id number] Description:700ml Breast Imp lant to Right Breast Superior Breast Implant Implanted:Qty: 1 on 02/05/2007 at OR [facility] [place] [facility] Left: Breast MENTOR MADDIE 08/06/2010 350-1697 / [id number] / [id number] Description:Superior Breast Im plant to Left BreaST Graft Fascia Nevin 2x3 93394 - [id number] Implanted:Qty: 1 on 03/20/2010 at OR [facility] Right: Eye IOP INC 06/06/2014 [id number] / / [id number] Breast Implant 350-1697 Saline - [id number] Implanted:Qty: 1 on 04/20/2011 at OR [facility] Right: Breast MENTOR MADDIE 04/04/2015 350-1697 / [id number] / [id number] Description:Superior smooth ro und moderate profile saline. Envelope Antibacteral Tyrx - [id number] Implanted:Qty: 1 on 05/14/2024 by Zulema Giordano IV, MD at CARDIAC LABS [facility] [employer] : CRM [id number] 01/30/2025 CMRM6 133 / / [id number] Defib [place] Mri Quad Weight Shifter-D - [id number] Implanted:Qty: 1 on 05/14/2024 by Zulema Giordano IV, MD at CARDIAC LABS [facility] [employer] [id number] 07/03/2025 [id number] / [id number] / [id number] Ring Morcher Type 14a Mr-1410 - [id number] Implanted:Qty: 1 on 08/17/2024 by Frank Zuñiga MD at OR [facility] Right: Eye MORCHER [id number] 04/04/2026 MR-1410 / [id number] / [id number] Lens 17.5 [id number] - [id number] Implanted:Qty: 1 on 08/17/2024 by Frank Zuñiga MD at OR [facility] Right: Eye ANNABELLE : SURGICAL [id number] 03/15/2029 [id number] / [id number] / [id number] documented as of this encounter Advance [...] and were consensually agreed upon. Care Teams Operations Lieutenant Relationship Specialty Start Date End Date Rose Marie Galloway MD [address] [place] [address] [place] [address] PCP - General Family Medicine 05/24/14 documented as of this encounter
--- OUTSIDE RECORDS SUMMARY | 2024-11-25 03:24 | External Medical Summary ---
Author Name Unknown Address Unknown Organization K01:[facility]ATORY [facility] [place] - [address] [facility] [address] Laboratory Report Ordering Provider Test Date Status NELSON ZAVALA 11/23/2024 14:20:31 Final Observation Date Value Abnormality Reference (Units ) Status SYNC LEUKOCYTES IN BLOOD BY AUTOMATED COUNT 11/23/2024 14:20:31 9.29 4.00-10.80 (K/uL) Final Segs 11/23/2024 14:20:31 57.9 40.0-75.0 (%) Final Lymphs % 11/23/2024 14:20:31 32.5 18.0-42.0 (%) Final Monos 11/23/2024 14:20:31 8.1 1.0-11.0 (%) Final Eosinophils 11/23/2024 14:20:31 0.6 0.0-6.0 (%) Final Basos 11/23/2024 14:20:31 0.6 0.0-2.0 (%) Final Immature Granulocyte, Percent 11/23/2024 14:20:31 0.3 0.0-2.0 (%) Final Absolute Segs 11/23/2024 14:20:31 5.37 1.80-7.70 (K/uL) Final Lymphs, absolute 11/23/2024 14:20:31 3.02 1.00-4.80 (K/ul) Final Monos, Abs 11/23/2024 14:20:31 0.75 0.00-1.10 (K/uL) Final Eos, Abs 11/23/2024 14:20:31 0.06 0.00-0.70 (K/uL) Final Basos, Abs 11/23/2024 14:20:31 0.06 0.00-0.20 (K/uL) Final Immature Granulocytes, Number 11/23/2024 14:20:31 0.03 0.00-0.20 (K/uL) Final Performing Location [facility]ORY [facility] - [address] [place] [address]
--- OUTSIDE RECORDS SUMMARY | 2024-11-25 03:24 | External Medical Summary ---
Author Name Unknown Address Unknown Organization K01:[facility] [place] [facility] [address] [address] Laboratory Report Ordering Provider Test Date Status CHENCHOANN 11/23/2024 14:20:31 Final Observation Date Value Abnormality Reference (Units ) Status MYCODE SPECIMEN-SST 11/23/2024 14:20:31 Freezing of extracted DNA, whole blood and/or serum. Final Performing Location [facility] [place] [address] [place] [address]
--- OUTSIDE RECORDS SUMMARY | 2024-11-25 03:24 | External Medical Summary | Summary of Care ---
Author Name Unknown Organization [facility] Address [address] [place] [address] Phone [phone] Care Team Providers Care Linen Checker Name Role Phone Rose Marie Galloway MD Primary Care Provide r Encounter Details Date Type Department Care Team (Late st Contact Info) Description 11/15/2024 Result Scan Unspecified Department Dilan Jamil, DO [address] [place] [address] <No scans attached> Allergies Active Allergy Reactions Criticality Noted Date Comments Docetaxel 02/14/2011 Chest pain, passed out , could not talk, saw silver round bubbles documented as of this encounter (statuses as of 11/16/2024) Medications OXYCODONE HCL 10 MG PO TABSIndications:pa [...] as of this encounter (statuses as of 11/16/2024) Active Problems Problem Noted Date Diagnosed Date NICM (nonischemic cardiomyopathy) 04/19/2024 ICD (implantable cardioverter-defibrillator) in place 04/19/2024 Chronic kidney disease, stage 3b 11/18/2022 Overview: Per CKD protocol Osteoporosis, postmenopausal 11/05/2022 Permanent atrial fibrillation 11/05/2022 Peripheral vascular disease 10/23/2021 Hx of melanoma of skin 12/04/2020 Overview (12/04/2020): 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, [place] II, 11/2020) Hypertensive heart and kidne y [...] 08/23/2014 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 group home current use of anticoagulant therapy 0 05/12/2006 Overview (07/07/2017): ICD-10 update of inactive term History of breast cancer 03/28/2006 Family history of other cardiovascular diseases 05/14/2005 Overview (12/28/2015): ICD-10 update of inactive term FAMILY HX-BREAST MALIG 05/14/2005 HTN, goal below 140/90 06/26/2001 Blindness of left eye documented as of this encounter (statuses as of 11/16/2024) Resolved Problems Problem Noted Date Diagnosed Date [...] as of this encounter (statuses as of 11/16/2024) Immunizations Name Administration Dates Next Due COVID-19 mRNA, LNP-s, No Pre serve, 2-Dose Series (Moderna) 02/12/2021,01/15/2021 Pneumococcal Conjugate Vacci ne, 20-valent (Sjyidxj08) 11/21/2022 Pneumococcal Polysaccharide PPV23 (Pneumovax) 08/12/2006 Seasonal [...] 11/30/2024 1:00 PM EST Nurse Only Ancillary [address] [place] [address] [place], Nurse [address] [place] [address] 11/30/2024 2:40 PM EST Office Visit Family Medicine [address] [place] [phone] Marcela Ramirez, [address] [place] [address] 12/28/2024 12:30 PM EDT Office Visit Cardiology [address] [place] [address] Graeme Pang PA-C [address] [place] [address] 04/22/2025 12:20 PM EDT Office Visit Dermatology [employer] [address] [facility] [place] [address] Cindi Vo PA-C [address] [place] [address] 06/21/2025 1:40 PM EDT Office Visit Family Medicine [address] [place] [phone] Rose Marie Galloway MD [address] [place] [address] [place] [address] 10/21/2025 1:00 PM EST Office Visit Optometry, [place] [address] [place] [address] Raudel Hernandez, [place] [address] [place] [address] Health Maintenance Due Date Last Done Comments [...] Additional history exists CKD HGB USE SMARTSET 02135 05/14/202505/14, 11/12/2023, 11/12/2023, Additional history exists CKD PHOS USE SMARTSET 25541 05/25/202505/07, 12/24/2022, 12/05/2021, Additional history exists TSH [...] D LEVEL ONCE IN A LIFETIME-USE SMARTSET# 63728 Completed 05/25/2024, 06/04/2023, 11/05/2022, Additional history exists [...] this encounter Medical Devices Implanted Type Area Technical Consultant Device Identifier Shelf Expiration Date Model / Serial / Lot Alloderm 6 X 16cm Implanted:Qty: 1 on 02/05/2007 at OR [facility] [place] Right: Breast LIFE CELL MADDIE [id number] / [id number] / [id number] Description:Alloderm 6 x 16 cm to right breast [id number] - [id number] Implanted:Qty: 1 on 02/05/2007 at OR [facility] [place] [facility] Left: Breast LIFE CELL MADDIE [id number] / [id number] / [id number] Description:ALLODERM TO left breast 6 x 16cm [place] Breast Implant Implanted:Qty: 1 on 02/05/2007 at OR [facility] [place] Right: Breast MENTOR MADDIE 08/06/2010 350-1697 / [id number] / [id number] Description:700ml Breast Imp lant to Right Breast [place] Breast Implant Implanted:Qty: 1 on 02/05/2007 at OR [facility] [place] Left: Breast MENTOR MADDIE 08/06/2010 350-1697 / [id number] / [id number] Description:[place] Breast Im plant to Left BreaST Graft Fascia Nevin 2x3 03157 - [id number] Implanted:Qty: 1 on 03/20/2010 at OR [facility] Right: Eye IOP INC 06/06/2014 78301 / / [id number] Breast Implant 350-1697 Saline - [id number] Implanted:Qty: 1 on 04/20/2011 at OR [facility] [place] Right: Breast MENTOR MADDIE 04/04/2015 350-1697 / [id number] / [id number] Description:[place] smooth ro und moderate profile saline. Envelope Antibacteral Tyrx - [id number] Implanted:Qty: 1 on 05/14/2024 by Zulema Giordano IV, MD at [facility] [employer] : CRM [id number] 01/30/2025 CMRM6 133 / / [id number] Defib [place] Mri Quad Paste Worker-D - [id number] Implanted:Qty: 1 on 05/14/2024 by Zulema Giordano IV, MD at [facility] [employer] [id number] 07/03/2025 [id number] / [id number] / [id number] S Ring Morcher Type 14a Mr-1410 - [id number] Implanted:Qty: 1 on 08/17/2024 by Frank Zuñiga MD at OR [facility] Right: Eye MORCHER [id number] 04/04/2026 MR-1410 / [id number] / [id number] Lens 17.5 Gg99xj290 - [id number] Implanted:Qty: 1 on 08/17/2024 by Frank Zuñiga MD at OR [facility] Right: Eye ANNABELLE : SURGICAL [id number] 03/15/2029 [id number] / [id number] / [id number] documented as of this encounter Procedures Procedure Name Priority Date/Time Associated Diagnosis Comments CARDIOLOGY SCANNED RESULT 11/15/2024 documented in this encounter Results * CARDIOLOGY SCANNED RESULT (11/15/2024) 11/15/2024 us Dilan Sacha Loulou DO OTHER Final Result documented in this encounter Advance Directives * [...] and were consensually agreed upon. Care Teams Linen Checker Relationship Specialty Start Date End Date Rose Marie Galloway MD [address] [place] [address] [place] [address] PCP - General Family Medicine 05/24/14 documented as of this encounter
--- OUTSIDE RECORDS SUMMARY | 2024-11-25 03:24 | External Medical Summary | Summary of Care ---
Author Name Unknown Organization [facility] Address [address] [place] [address] Phone [phone] Care Team Providers Care Shop Mechanic Name Role Phone Rose Marie Galloway MD Primary Care Provide r Encounter Details Date Type Department Care Team (Late st Contact Info) Description 10/18/2024 2:30 PM EST Documentation [facility] [address] [address] [place] [address] [place] [address] Allergies Active Allergy Reactions Criticality Noted Date [...] Overview (12/04/2020): 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, [place] II, 11/2020) Hypertensive heart and kidne y [...] 08/23/2014 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 use of anticoagulant [...] (Moderna) 02/12/2021,01/15/2021 Pneumococcal Conjugate Vacci ne, 20-valent (Lxreqyf16) 11/21/2022 Pneumococcal Polysaccharide PPV23 (Pneumovax) 08/12/2006 Seasonal [...] PM EST documented as of this encounter Progress Notes * Adilene Medina TECH - 10/18/2024 2:44 PM EST Dispensed by: josue Final checked by: Dispenser notes: 2 pair 11/05/24 Carmencita Lab: [facility] Order Type: Complete Kayce Doherty [id number] [place] [id number] Text Order Date: 10/18/2024 Provider: titus Rx Date: 10/18/24 Dispenser: Adilene Johnson Reason: Patient Rx: Glasses Prescription (10/18/2024) Sphere Cylinder [place] Add Right +1.25 -6.50 165 +2.75 Left Balance Type: Bifocal Expiration Date: 10/18/2026 Lab Notes: POF Suns with polarization SV DVO Lenses Type/Style: Right: Single Vision Left: Single Vision Lens Material: Polycarbonate Photochrom: Edge: Coating: Tint: Polarized:[place] Right Left Dist PD: 31.5 Near PD: Dist PD: 31.5 Near PD: Seg Ht: OC: Seg Ht: OC: Frames- Patients own Drosser/Collection: CHIKIS - POF Style: 3695 metal Color: black Eye Size: 58 - 17 - 145 B: 42 ED 61 documented in this encounter Plan of Treatment Upcoming Encounters Date Type Department Care Team (Late st Contact Info) Description 11/30/2024 1:00 PM EST Nurse Only Ancillary [address] [place] [address] [place], Nurse [address] [place] [address] 11/30/2024 2:40 PM EST Office Visit Family Medicine [address] [place] [phone] Marcela Ramirez CRNP [address] [place] [address] [place] [address] 12/28/2024 12:30 PM EDT Office Visit Cardiology [address] [place] [address] Graeme Pnag PA-C [address] [facility] [place] [address] 04/22/2025 12:20 PM EDT Office Visit Dermatology [facility] [address] [place] [address] Cindi Vo PA-C [address] [place] [address] 06/21/2025 1:40 PM EDT Office Visit Family Medicine [address] [place] [phone] Rose Marie Galloway MD [address] [place] [address] [place] [address] 10/21/2025 1:00 PM EST Office Visit Optometry, [place] 16 [place], [place] [phone] Raudel Hernandez, MEHNAZ [address] [place] [address] Health Maintenance Due Date Last Done Comments [...] Additional history exists CKD HGB USE SMARTSET 91472 05/14/202505/14, 11/12/2023, 11/12/2023, Additional history exists CKD PHOS USE SMARTSET 81255 05/25/20252 , 12/24/2022, 12/05/2021, Additional history exists TSH 05/25/2025 05/25/2024, 04/2024, 09/25/2023, Additional history exists Cologuard 08/21/2025 08/21/2022, 1105/2022, 08/13/2022, Additional history exists Colorectal Cancer Screening [...] D LEVEL ONCE IN A LIFETIME-USE SMARTSET# 03670 Completed 05/25/2024, 06/04/2023, 11/05/2022, Additional history exists [...] this encounter Medical Devices Implanted Type Area Drosser Device Identifier Shelf Expiration Date Model / Serial / Lot Alloderm 6 X 16cm Implanted:Qty: 1 on 02/05/2007 at OR [facility] [place] Right: Breast LIFE CELL MADDIE [id number] / [id number] / [id number] Description:Alloderm 6 x 16 cm to right breast [id number] - [id number] Implanted:Qty: 1 on 02/05/2007 at OR [facility] Left: Breast LIFE CELL MADDIE 183033 / [id number] / [id number] Description:ALLODERM TO left breast 6 x 16cm [place] Breast Implant Implanted:Qty: 1 on 02/05/2007 at OR [facility] Right: Breast MENTOR MADDIE 08/06/2010 350-1697 / [id number] / [id number] Description:700ml Breast Imp lant to Right Breast [place] Breast Implant Implanted:Qty: 1 on 02/05/2007 at OR [facility] Left: Breast MENTOR MADDIE 08/06/2010 350-1697 / [id number] / [id number] Description:[place] Breast Im plant to Left BreaST Graft Fascia Nevin 2x3 82760 - [id number] Implanted:Qty: 1 on 03/20/2010 at OR [facility] Right: Eye IOP INC 06/06/2014 42294 / / [id number] Breast Implant 350-3817 Saline - [id number] Implanted:Qty: 1 on 04/20/2011 at OR [facility] [place] Right: Breast MENTOR MADDIE 04/04/2015 350-1697 / [id number] / [id number] Description:[place] smooth ro und moderate profile saline. Envelope Antibacteral Tyrx - [id number] Implanted:Qty: 1 on 05/14/2024 by Zulema Giordano IV, MD at [facility]ARDI[facility]S [facility] [place] [employer] : CRM [id number] 01/30/2025 CMRM6 133 / / [id number] Defib [place] Mri Quad [place] Operations Specialist-D - [id number] Implanted:Qty: 1 on 05/14/2024 by Zulema Giordano IV, MD at [facility] [place] [employer] [id number] 07/03/2025 [id number] / [id number] / [id number] S Ring Morcher Type 14a Mr-1410 - [id number] Implanted:Qty: 1 on 08/17/2024 by Frank Zuñiga MD at OR [facility] Right: Eye MORCHER [id number] 04/04/2026 MR-1410 / [id number] / [id number] Lens 17.5 [id number] - [id number] Implanted:Qty: 1 on 08/17/2024 by Frank Zuñiga MD at OR [facility] Right: Eye ANNABELLE : SURGICAL [id number] 03/15/2029 [id number] / [id number] / [id number] documented as of this encounter Advance [...] and were consensually agreed upon. Care Teams Shop Mechanic Relationship Specialty Start Date End Date Rose Marie Galloway MD [address] [place] [address] [place] [address] PCP - General Family Medicine 05/24/14 documented as of this encounter
--- OUTSIDE RECORDS SUMMARY | 2024-11-25 03:25 | External Medical Summary | Summary of Care ---
Author Name Unknown Organization [facility] Address [address] [place] [address] Phone [phone] Care Team Providers Care Clerical Specialist Name Role Phone Rose Marie Galloway MD Primary Care Provide r Reason for Visit * Reason Onset Date Comments Medication Question 11/03/2024 Encounter Details Date Type Department Care Team (Late st Contact Info) Description 11/03/2024 Telephone Cardiology, [facility] [address] [place] [address] Graeme Pang PA-C [address] [place] [address] Medication Question Allergies Active Allergy Reactions Criticality Noted Date Comments Docetaxel 02/14/2011 Chest pain, passed out , could not talk, saw silver round bubbles documented as of this encounter (statuses as of 11/04/2024) Medications OXYCODONE HCL 10 MG PO TABSIndications:pa in as needed Take by mouth every 8 hours as needed . Active Vitamin D3 50 MCG (1999) Oral Capsule Take 1 Capsule by mouth in the morning. 30 Capsule 5 3 Active Furosemide 40 MG Oral Tablet (Lasix)Indications :Hypokalemia,Heart failure, systolic, with acute decompensation (HCC) TAKE 1 TABLET EVERY OTHER DAY, OR DIRECTED 45 Tablet 3 4 Active Jardiance 10 MG Oral Tablet (Empagliflozin)Ind [...] Friday only. 19 Tablet 3 4 Active documented as of this encounter (statuses as of 11/04/2024) Active Problems Problem Noted Date Diagnosed Date NICM (nonischemic cardiomyopathy) 04/19/2024 ICD (implantable cardioverter-defibrillator) in place 04/19/2024 Chronic kidney disease, stage 3b 11/18/2022 Overview: Per CKD protocol Osteoporosis, postmenopausal 11/05/2022 Permanent atrial fibrillation 11/05/2022 Peripheral vascular disease 10/23/2021 Hx of melanoma of skin 12/04/2020 Overview (12/04/2020): 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, [place] II, 11/2020) Hypertensive heart and kidne y [...] 08/23/2014 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 long-term current use of anticoagulant therapy 0 05/12/2006 Overview (07/07/2017): ICD-10 update of inactive term History of breast cancer 03/28/2006 Family history of other cardiovascular diseases 05/14/2005 Overview (12/28/2015): ICD-10 update of inactive term FAMILY HX-BREAST MALIG 05/14/2005 HTN, goal below 140/90 06/26/2001 Blindness of left eye documented as of this encounter (statuses as of 11/04/2024) Resolved Problems Problem Noted Date Diagnosed Date [...] as of this encounter (statuses as of 11/04/2024) Immunizations Name Administration Dates Next Due COVID-19 mRNA, LNP-s, No Pre serve, 2-Dose Series (Moderna) 02/12/2021,01/15/2021 Pneumococcal Conjugate Vacci ne, 20-valent (Uricfpa89) 11/21/2022 Pneumococcal Polysaccharide PPV23 (Pneumovax) 08/12/2006 Seasonal [...] ages 0-17 years) Not on file 10/20/2024 Comments No Sex and Gender Information [...] to: : YES Type of assistance: Pharmacy Nessa Applications mailed: : YES Follow up: Called and spoke to member, applications mailed and I will FU in 2 weeks to make sure applications were received and if there is any questions Roula Covarrubias Medication Reinstatement Clerk II [facility] 11/03/2024,6:27 PM * Telephone Encounter - [...] PM EST Called 30-day free trial into [facility] pharmacy. Brisa - are you able to help with further cost assistance? [facility] Pharmacist also mentioned new medicare program where patients are able to split drug copay up into monthly payments. [facility] attached a handout to patient's prescription [...] Patient stated that she went to sweet pickled fruit maker the medication and was informed that it would cost over $800. Patient stated she cannot afford that and is asking if there is some type of copay assistance or if there is an alternative medication that is less expensive. Patient can be reached at [phone]. Thank you, Yulisa Zapata Trouble Dispatcher I [facility] 11/03/2024,1:12 PM * Telephone Encounter - Katlyn Jacobs CPhT - 11/03/2024 1:05 PM EST Pt calling regarding Jardiance, last prescribed by Cardiology. Transferred to [facility] for further assistance. Thank you, Katlyn Jacobs CPhT Optometry Doctor II [facility] 11/03/2024,1:06 PM documented in this encounter Plan of Treatment Upcoming Encounters Date Type Department Care Team (Late st Contact Info) Description 11/30/2024 1:00 PM EST Nurse Only Ancillary [address] [place] [address] Negro Nurse [address] [place] [address] 11/30/2024 2:40 PM EST Office Visit Family Medicine [address] [place] [phone] Marcela Ramirez [address] [place] [address] 12/28/2024 12:30 PM EDT Office Visit Cardiology [address] [place] [address] Graeme Pang PA-C [address] [facility] [place] [address] 04/22/2025 12:20 PM EDT Office Visit Dermatology [facility] [address] [place] [address] Cindi Vo PA-C [address] [place] [address] 06/21/2025 1:40 PM EDT Office Visit Family Medicine [address] [place] [phone] Rose Marie Galloway MD [address] [place] [address] [place] [address] 10/21/2025 1:00 PM EST Office Visit Optometry, [place] [address] [place] [address] Raudel Hernandez, MEHNAZ [address] [place] [address] Health Maintenance Due Date Last Done Comments [...] Additional history exists CKD HGB USE SMARTSET 90760 05/14/202505/14, 11/12/2023, 11/12/2023, Additional history exists CKD PHOS USE SMARTSET 60499 05/25/202505/07, 12/24/2022, 12/05/2021, Additional history exists TSH 05/25/2025 05/25/2024, 020 04/2024, 09/25/2023, Additional history exists Cologuard 08/21/2025 [...] D LEVEL ONCE IN A LIFETIME-USE SMARTSET# 03880 Completed 05/25/2024, 06/04/2023, 11/05/2022, Additional history exists [...] this encounter Medical Devices Implanted Type Area Promotion Manager Device Identifier Shelf Expiration Date Model / Serial / Lot Alloderm 6 X 16cm Implanted:Qty: 1 on 02/05/[address] [facility] [place] Right: Breast LIFE CELL MADDIE [id number] / [id number] / [id number] Description:Alloderm 6 x 16 cm to right breast [id number] - [id number] Implanted:Qty: 1 on 02/05/[address] [facility] [place] Left: Breast LIFE CELL MADDIE [id number] / [id number] / [id number] Description:ALLODERM TO left breast 6 x 16cm [place] Breast Implant Implanted:Qty: 1 on 02/05/[address] [facility] [place] [place] Right: Breast MENTOR MADDIE 08/06/2010 350-1697 / [id number] / [id number] Description:700ml Breast Imp lant to Right Breast [place] Breast Implant Implanted:Qty: 1 on 02/05/[address] [facility] [place] [place] Left: Breast MENTOR MADDIE 08/06/2010 350-1697 / [id number] / [id number] Description:[place] Breast Im plant to Left BreaST Graft Fascia Nevin 2x3 [id number] - [id number] Implanted:Qty: 1 on 03/20/2010 at OR [facility] Right: Eye [employer] 06/06/2014 [id number] / / [id number] Breast Implant 350-1697 Saline - [id number] Implanted:Qty: 1 on 04/20/[address] [facility] [place] Right: Breast MENTOR MADDIE 04/04/2015 350-1697 / [id number] / [id number] Description:[place] smooth ro und moderate profile saline. Envelope Antibacteral Tyrx - [id number] Implanted:Qty: 1 on 05/14/2024 by Zulema Giordano IV, MD at CARDIAC LABS [facility] [place] [employer] : CRM [id number] 01/30/2025 [id number] / / [id number] Defib [place] Mri Quad Aerospace Engineer Officer Armament-D - [id number] Implanted:Qty: 1 on 05/14/2024 by Zulema Giordano IV, MD at [facility]ARD[facility] [employer] [id number] 07/03/2025 [id number] / [id number] / [id number] S Ring Morcher Type 14a Mr-1410 - [id number] Implanted:Qty: 1 on 08/17/2024 by Frank Zuñiga MD at OR [facility] Right: Eye MORCHER [id number] 04/04/2026 MR-1410 / [id number] / [id number] Lens 17.5 [id number] - [id number] Implanted:Qty: 1 on 08/17/2024 by Frank Zuñiga MD at OR [facility] Right: Eye ANNABELLE : SURGICAL [id number] 03/15/2029 [id number] / [id number] / [id number] documented as of this encounter Advance [...] and were consensually agreed upon. Care Teams Clerical Specialist Relationship Specialty Start Date End Date Rose Marie Galloway MD [address] [place] [address] [place] [address] PCP - General Family Medicine 05/24/14 documented as of this encounter
--- OUTSIDE RECORDS SUMMARY | 2024-11-25 03:25 | External Medical Summary | Summary of Care ---
Author Name Unknown Organization [facility] Address [address] [place] [address] Phone [phone] Care Team Providers Care Systems Security Consultant Name Role Phone Rose Marie Galloway MD Primary Care Provide r Reason for Visit * Reason Onset Date Comments Medication Question 11/03/2024 Encounter Details Date Type Department Care Team (Late st Contact Info) Description 11/03/2024 Telephone Cardiology, [facility] [address] [place] [address] Graeme Pang PA-C [address] [place] [address] Medication Question Allergies Active Allergy Reactions Criticality Noted Date Comments Docetaxel 02/14/2011 Chest pain, passed out , could not talk, saw silver round bubbles documented as of this encounter (statuses as of 11/10/2024) Medications OXYCODONE HCL 10 MG PO TABSIndications:p [...] as of this encounter (statuses as of 11/10/2024) Active Problems Problem Noted Date Diagnosed Date NICM (nonischemic cardiomyopathy) 04/19/2024 ICD (implantable cardioverter-defibrillator) in place 04/19/2024 Chronic kidney disease, stage 3b 11/18/2022 Overview: Per CKD protocol Osteoporosis, postmenopausal 11/05/2022 Permanent atrial fibrillation 11/05/2022 Peripheral vascular disease 10/23/2021 Hx of melanoma of skin 12/04/2020 Overview (12/04/2020): 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, [place] II, 11/2020) Hypertensive heart and kidne y [...] 08/23/2014 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-Qepgc disease 12/24/2010 Systolic heart failure, chronic 08/03/2009 [...] as of this encounter (statuses as of 11/10/2024) Resolved Problems Problem Noted Date Diagnosed Date [...] as of this encounter (statuses as of 11/10/2024) Immunizations Name Administration Dates Next Due COVID-19 mRNA, LNP-s, No Pre serve, 2-Dose Series (Moderna) 02/12/2021,01/15/2021 Pneumococcal Conjugate Vacci ne, 20-valent (Hxqaarj87) 11/21/2022 Pneumococcal Polysaccharide PPV23 (Pneumovax) 08/12/2006 Seasonal [...] No 10/20/2024 Are you (or your family) makro eless or worried that you might be [...] called in stating she faxed forms to [phone] around 1 PM, now checking to confirm it was received. Melvina confirmed receipt. Patient updated. Mami Booth, PharmD Clinical Pharmacist - Review Trainer [facility] 11/10/2024 2:58 PM [...] Eliquis 30 day free trial card at [facility]. Updated patient. She will let us know if she does not receive forms by end of this week. Mami Booth PharmD Clinical Pharmacist - Review Trainer [facility] 11/09/2024 4:17 PM * Telephone Encounter - Audrey Reynolds OSA - 11/09/2024 2:03 PM EST Person calling: Kayce Relationship to patient: self Phone/Fax to return call: [phone] Reason for call(brief): Eliquis Pharmacy: [facility] Provider Name:Graeme Pang Detailed message to office:Patient [...] there is any questions Roula Covarrubias Medication Licensed Massage Therapist II [facility] 11/03/2024,6:27 PM * Telephone Encounter - [...] PM EST Called 30-day free trial into [facility] pharmacy. Brisa - are you able to help with further cost assistance? [facility] Pharmacist also mentioned new medicare program where patients are able to split drug copay up into monthly payments. [facility] attached a handout to patient's prescription with [...] prescription. Patient stated that she went to nut picker the medication and was informed that it would cost over $800. Patient stated she cannot afford that and is asking if there is some type of copay assistance or if there is an alternative medication that is less expensive. Patient can be reached at [phone]. Thank you, Yulisa Zapata Real Property Appraiser I [facility] 11/03/2024,1:12 PM * Telephone Encounter - Katlyn Jacobs CPhT - 11/03/2024 1:05 PM EST Pt calling regarding Jardiance, last prescribed by Cardiology. Transferred to specialty tech line for further assistance. Thank you, Katlyn Jacobs CPhT Production Operations Manager II [facility] 11/03/2024,1:06 PM documented in this encounter Plan of Treatment Upcoming Encounters Date Type Department Care Team (Late st Contact Info) Description 11/30/2024 1:00 PM EST Nurse Only Ancillary [address] [place] [address] [place], Nurse Annual [address] [place] [address] 11/30/2024 2:40 PM EST Office Visit Family Medicine [address] [place] [phone] Marcela Ramirez [address] [place] [address] 12/28/2024 12:30 PM EDT Office Visit Cardiology [address] [place] [address] Graeme Pang PA-C [address] [facility] [facility] [place] [address] 04/22/2025 12:20 PM EDT Office Visit Dermatology [facility] [address] [facility] [place] [facility] [place] [address] Cindi Vo PA-C [address] [place] [address] 06/21/2025 1:40 PM EDT Office Visit Family Medicine [address] [place] [phone] Rose Marie Galloway MD [address] [place] [address] [place] [address] 10/21/2025 1:00 PM EST Office Visit Optometry, X[place] [address] [place], [place] [phone] Raudel Hernandez, MEHNAZ [address] [place] [address] [phone] (work) Health Maintenance Due Date Last Done [...] Additional history exists CKD HGB USE SMARTSET 74218 05/14/202505/14, 11/12/2023, 11/12/2023, Additional history exists CKD PHOS USE SMARTSET 59103 05/25/2025 082 , 12/24/2022, 12/05/2021, Additional history [...] D LEVEL ONCE IN A LIFETIME-USE SMARTSET# 66290 Completed 05/25/2024, 06/04/2023, 11/05/2022, Additional history exists [...] this encounter Medical Devices Implanted Type Area Drum Sander Device Identifier Shelf Expiration Date Model / Serial / Lot Alloderm 6 X 16cm Implanted:Qty: 1 on 02/05/2007 [place] [facility] [place] Right: Breast LIFE CELL MADDIE [id number] / [id number] / [id number] Description:Alloderm 6 x 16 cm to right breast [id number] - [id number] Implanted:Qty: 1 on 02/05/2007 at [place] [facility] Left: Breast LIFE CELL MADDIE [id number] / [id number] / [id number] Description:ALLODERM TO left breast 6 x 16cm [place] Breast Implant Implanted:Qty: 1 on 02/05/2007 at [place] [facility] [place] Right: Breast MENTOR MADDIE 08/06/2010 350-1697 / [id number] / [id number] Description:700ml Breast Imp lant to Right Breast [place] Breast Implant Implanted:Qty: 1 on 02/05/2007 at [place] [facility] [place] Left: Breast MENTOR MADDIE 08/06/2010 350-1697 / [id number] / [id number] Description:[place] Breast Im plant to Left BreaST Graft Fascia Nevin 2x3 19116 - [id number] Implanted:Qty: 1 on 03/20/2010 at OR [facility] Right: Eye IOP INC 06/06/2014 00454 / / [id number] Breast Implant 350-1697 Saline - [id number] Implanted:Qty: 1 on 04/20/2011 at [place] [facility] Right: Breast MENTOR MADDIE 04/04/2015 350-1697 / [id number] / [id number] Description:[place] smooth ro und moderate profile saline. Envelope Antibacteral Tyrx - [id number] Implanted:Qty: 1 on 05/14/2024 by Zulema Giordano IV, MD at [facility] [employer] : CRM [id number] 01/30/2025 CMRM6 133 / / [id number] Defib [place] Mri Quad Geodetic Surveyor Technologist-D - [id number] Implanted:Qty: 1 on 05/14/2024 by Zulema Giordano IV, MD at [facility] [employer] [id number] 07/03/2025 [id number] / [id number] / [id number] S Ring Morcher Type 14a Mr-1410 - [id number] Implanted:Qty: 1 on 08/17/2024 by Frank Zuñiga MD at OR [facility] Right: Eye MORCHER [id number] 04/04/2026 MR-1410 / [id number] / [id number] Lens 17.5 [id number] - [id number] Implanted:Qty: 1 on 08/17/2024 by Frank Zuñiga MD at OR [facility] Right: Eye ANNABELLE : SURGICAL [id number] 03/15/2029 [id number] / [id number] / [id number] documented as of this encounter Advance [...] and were consensually agreed upon. Care Teams Systems Security Consultant Relationship Specialty Start Date End Date Roes Marie Galloway MD [address] [place] [address] [place] [address] PCP - General Family Medicine 05/24/14 documented as of this encounter
--- OUTSIDE RECORDS SUMMARY | 2024-11-25 03:25 | External Medical Summary | Summary of Care ---
Author Name Unknown Organization [facility] Address [address] [place] [address] Phone [phone] Care Team Providers Care Insole Cementer Name Role Phone Rose Marie Galloway MD Primary Care Provide r Reason for Visit * Reason Comments eRx-Medication Refill Encounter Details Date Type Department Care Team (Late st Contact Info) Description 11/06/2024 Refill Cardiology [address] [place] [phone] Des Murphy PA-C [address] [place] [phone] Heart failure, systolic, with acute decompensation (HCC)*; Hypokalemia; Encounter for long-term (current) use of medications Allergies Active Allergy Reactions Criticality Noted Date Comments Docetaxel 02/14/2011 Chest pain, passed out , could not talk, saw silver round bubbles documented as of this encounter (statuses as of 11/09/2024) Medications OXYCODONE HCL 10 MG PO TABSIndications:p [...] OTHER DAY, OR DIRECTED 45 Tablet 1 11/08/19 25 Active Furosemide 40 MG Oral Tablet (Lasix)Indication s:Hypokalemia,Hea rt failure, systolic, with acute decompensation (HCC) TAKE 1 TABLET EVERY OTHER DAY, OR DIRECTED 45 Tablet 3 11/12/19 24 2024 Discontinued documented as of this encounter (statuses as of 11/09/2024) Active Problems Problem Noted Date Diagnosed Date NICM (nonischemic cardiomyopathy) 04/19/2024 ICD (implantable cardioverter-defibrillator) in place 04/19/2024 Chronic kidney disease, stage 3b 11/18/2022 Overview: Per CKD protocol Osteoporosis, postmenopausal 11/05/2022 Permanent atrial fibrillation 11/05/2022 Peripheral vascular disease 10/23/2021 Hx of melanoma of skin 12/04/2020 Overview (12/04/2020): 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, [place] II, 11/2020) Hypertensive heart and kidne y [...] 08/23/2014 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 [facility] current use of anticoagulant therapy 0 05/12/2006 Overview (07/07/2017): ICD-10 update of inactive term History of breast cancer 03/28/2006 Family history of other cardiovascular diseases 05/14/2005 Overview (12/28/2015): ICD-10 update of inactive term FAMILY HX-BREAST MALIG 05/14/2005 HTN, goal below 140/90 06/26/2001 Blindness of left eye documented as of this encounter (statuses as of 11/09/2024) Resolved Problems Problem Noted Date Diagnosed Date [...] as of this encounter (statuses as of 11/09/2024) Immunizations Name Administration Dates Next Due COVID-19 mRNA, LNP-s, No Pre serve, 2-Dose Series (Moderna) 02/12/2021,01/15/2021 Pneumococcal Conjugate Vacci ne, 20-valent (Lipensa33) 11/21/2022 Pneumococcal Polysaccharide PPV23 (Pneumovax) 08/12/2006 Seasonal [...] 10/20/2024 Does the household have a re lar source of income? (Household - for ages [...] encounter Miscellaneous Notes * Telephone Encounter - Bob Padgett RPh - 11/08/2024 12:49 PM ESTSigned Prescriptions: Disp Refills Furosemide 40 MG Oral Tablet (Lasix) 45 Tab*1 Sig: TAKE 1 TABLETEVERY OTHER DAY, OR DIRECTEDAuthorizing Provider: DES MURPHY User: BOB PADGETT-- * Telephone Encounter - Bob Padgett RPh - 11/08/2024 12:47 PM EST Magnesium lab ordered for next routine lab work. Thanks, Tanisha GuillenD Clinical Pharmacist [facility] ([facility]) 11/08/2024, 12:48 PM * Telephone Encounter - Jordyn Wan - 11/06/2024 7:14 PM ESTPending Prescriptions: Disp Refills Furosemide 40 MG Oral Tablet [Pharmacy Med*45 Tab*3 Sig: TAKE 1 TABLET EVERY OTHER DAY, OR DIRECTED * Telephone Encounter - Jordyn Wan - 11/06/2024 7:12 PM EST Did you pend patient's preferred pharmacy and medication before forwarding?yes Pharmacy: [id number] [id number] [facility] Pending Prescriptions: Disp Refills Furosemide 40 MG Oral Tablet (Lasix) [Pha*45 Tab*3 Sig: TAKE 1 TABLET EVERY OTHER DAY, OR DIRECTED Last Visit: 06/08/2024 (in office), 01/11/2020 (telemedicine) Next Visit: 12/28/2024 If no future appointments scheduled, and last appointment is greater than a year ago, please schedule patient for a follow-up appointment Last date the medication was ordered: 11/12/2023 Is this request for a controlled substance?No Urine Drug Screen:No results found. However, due to the size of the patient record, not all encounters were searched. Please check Results Review for a complete set of results. Patient Phone Numbers Labs: Lab Results Component Value Date/Time CREAT 1.4 (H) 09/20/2024 10:19 AM CREAT 1.3 (H) 09/19/2020 11:36 AM CREAT 0.7 12/17/1996 11:02 AM POTASSIUM 4.5 09/20/2024 10:19 AM POTASSIUM 4.3 09/19/2020 11:36 AM POTASSIUM 5.0 12/17/1996 11:02 AM TSH 0.65 05/25/2024 03:33 PM TSH 2.61 05/31/2020 10:36 AM TSH 2.57 12/17/1996 11:02 AM LDL 44 11/12/2023 08:56 AM LDL 48 07/13/2020 08:17 AM LDL NOT APPLICABLE 07/13/2020 08:17 AM ALT 20 05/25/2024 03:33 PM ALT 22 07/13/2020 08:17 AM ALT 29 12/17/1996 11:02 AM HGBA1C 5.6 11/12/2023 08:56 AM HGBA1C 5.5 07/23/2012 09:11 AM documented in this encounter Plan of Treatment Upcoming Encounters Date Type Department Care Team (Late st Contact Info) Description 11/30/2024 1:00 PM EST Nurse Only Ancillary [address] [place] [address] Luannalley, Nurse [address] [place] [address] 11/30/2024 2:40 PM EST Office Visit Family Medicine [address] [place] [phone] Marcela Ramirez [address] [place] [address] 12/28/2024 12:30 PM EDT Office Visit Cardiology [address] [place] [address] Des Murphy PAAvaC [address] [place] [address] 04/22/2025 12:20 PM EDT Office Visit Dermatology [facility] [address] [place] [address] Cindi Vo PA-C [address] [place] [address] 06/21/2025 1:40 PM EDT Office Visit Family Medicine [address] [place] [phone] Rose Marie Galloway MD [address] [place] [address] [place] [address] 10/21/2025 1:00 PM EST [facility] [address] [place] [address] Raudel Hernandez, MEHNAZ [address] [place] [address] Scheduled Orders Name Type Priority Associated Diagnoses Orde r Schedule MAGNESIUM Lab Routine Heart failure, systolic, with acute decompensation (HCC) Encounter for long-term (current) use of medications Expected: 01/03/2025 (Approximate), Expires: 11/08/2025 Health Maintenance Due Date Last Done Comments [...] Additional history exists CKD HGB USE SMARTSET 00576 05/14/202505/14, 11/12/2023, 11/12/2023, Additional history exists CKD PHOS USE SMARTSET 01448 05/25/202505/07, 12/24/2022, 12/05/2021, Additional history exists TSH [...] D LEVEL ONCE IN A LIFETIME-USE SMARTSET# 75652 Completed 05/25/2024, 06/04/2023, 11/05/2022, Additional history exists [...] this encounter Medical Devices Implanted Type Area Pediatric Urologist Device Identifier Shelf Expiration Date Model / Serial / Lot Alloderm 6 X 16cm Implanted:Qty: 1 on 02/05/2007 at OR [facility] [place] Right: Breast LIFE CELL MADDIE [id number] / [id number] / [id number] Description:Alloderm 6 x 16 cm to right breast [id number] - [id number] Implanted:Qty: 1 on 02/05/2007 at OR [facility] [place] Left: Breast LIFE CELL MADDIE [id number] / [id number] / [id number] Description:ALLODERM TO left breast 6 x 16cm [place] Breast Implant Implanted:Qty: 1 on 02/05/2007 at OR [facility] [place] Right: Breast MENTOR MADDIE 08/06/2010 350-1697 / [id number] / [id number] Description:700ml Breast Imp lant to Right Breast [place] Breast Implant Implanted:Qty: 1 on 02/05/2007 at OR [facility] [place] Left: Breast MENTOR MADDIE 08/06/2010 350-1697 / [id number] / [id number] Description:[place] Breast Im plant to Left BreaST Graft Fascia Nevin 2x3 01593 - [id number] Implanted:Qty: 1 on 03/20/2010 at OR [facility] Right: Eye IOP INC 06/06/2014 65648 / / [id number] Breast Implant 350-1697 Saline - [id number] Implanted:Qty: 1 on 04/20/2011 at OR [facility] [place] Right: Breast MENTOR MADDIE 04/04/2015 350-1697 / [id number] / [id number] Description:[place] smooth ro und moderate profile saline. Envelope Antibacteral Tyrx - [id number] Implanted:Qty: 1 on 05/14/2024 by Zulema Giordano IV, MD at [facility] [place] [employer] : CRM [id number] 01/30/2025 [id number] 133 / / [id number] Defib [place] Mri Quad Tobacco Drying Machine Operator-D - [id number] Implanted:Qty: 1 on 05/14/2024 by Zulema Giordano IV, MD at [facility] [place] [employer] [id number] 07/03/2025 [id number] / [id number] / [id number] S Ring Morcher Type 14a Mr-1410 - [id number] Implanted:Qty: 1 on 08/17/2024 by Frank Zuñiga MD at OR [facility] Right: Eye MORCHER [id number] 04/04/2026 MR-1410 / [id number] / [id number] Lens 17.5 [id number] - [id number] Implanted:Qty: 1 on 08/17/2024 by Frank Zuñiga MD at OR [facility] Right: Eye ANNABELLE : SURGICAL [id number] 03/15/2029 [id number] / [id number] / [id number] documented as of this encounter Visit Diagnoses Diagnosis Heart failure, systolic, with acute decompensation (HCC)- Primary Acute on chronic systolic heart failure Hypokalemia Hypopotassemia Encounter for long-term (current) use of medications Encounter for long-term (current) use of other medications documented in this encounter Advance Directives * [...] and were consensually agreed upon. Care Teams Insole Cementer Relationship Specialty Start Date End Date Rose Marie Galloway MD [address] [place] [address] [place] [address] PCP - General Family Medicine 05/24/14 documented as of this encounter
--- OUTSIDE RECORDS SUMMARY | 2024-11-25 03:25 | External Medical Summary | Summary of Care ---
Author Name Unknown Organization [facility] Address [address] [place] [address] Phone [phone] Care Team Providers Care Shopper Insights Manager Name Role Phone Rose Marie Galloway MD Primary Care Provide r Reason for Visit * Reason Onset Date Comments Medication Question 11/03/2024 Encounter Details Date Type Department Care Team (Late st Contact Info) Description 11/03/2024 Telephone Cardiology, 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 [facility] current use of anticoagulant therapy 0 05/12/2006 [...] (Moderna) 02/12/2021,01/15/2021 Pneumococcal Conjugate Vacci ne, 20-valent (Wrfuitq96) 11/21/2022 Pneumococcal Polysaccharide PPV23 (Pneumovax) 08/12/2006 Seasonal [...] Eliquis 30 day free trial card at [facility]. Updated patient. She will let us know if she does not receive forms by end of this week. Mami Booth, PharmD Clinical Pharmacist - Rating Clerk [facility] 11/09/2024 4:17 PM * Telephone Encounter - Audrey Reynolds OSA - 11/09/2024 2:03 PM EST Person calling: Kayce Relationship to patient: self Phone/Fax to return call: [phone] Reason for call(brief): Eliquis Pharmacy: [facility] Provider Name:Graeme Pang Detailed message [...] there is any questions Roula Covarrubias Medication Boiler Or Engine Operator II [facility] 11/03/2024,6:27 PM * Telephone Encounter - Iman Meyer RPh - 11/03/2024 4:10 PM EST MTM can help with this cost assistance. Will send to the pharmacy reimbursement team. Please help assist in screening the patient for cost assistance for both the patient's jardiance and Eliquis. Thanks, Iman Meyer, TanishaD Clinical Pharmacist 11/03/2024 4:12 PM * Telephone Encounter - Idalmis Vega CMA - 11/03/2024 1:49 PM EST Called 30-day free trial into [facility] pharmacy. Brisa - are you able to help with further cost assistance? [facility] Pharmacist also mentioned new medicare program where patients are able to split drug copay up into monthly payments. [facility] attached a handout to patient's [...] prescription. Patient stated that she went to hot die picker the medication and was informed that it would cost over $800. Patient stated she cannot afford that and is asking if there is some type of copay assistance or if there is an alternative medication that is less expensive. Patient can be reached at [phone]. Thank you, Yulisa Zapata Aegis Operations Specialist I [facility] ([facility]) 11/03/2024,1:12 PM * Telephone Encounter - Katlyn Jacobs CPhT - 11/03/2024 1:05 PM EST Pt calling regarding Jardiance, last prescribed by Cardiology. Transferred to specialty tech line for further assistance. Thank you, Katlyn Jacobs CPhT Toy Department Manager II [facility] ([facility]) 11/03/2024,1:06 PM documented in this encounter Plan of Treatment Upcoming Encounters Date Type Department Care Team (Late st Contact Info) Description 11/30/2024 1:00 PM EST Nurse Only Ancillary [address] [place] [address] [place], Nurse [address] [place] [address] 11/30/2024 2:40 PM EST Office Visit Family Medicine [address] [place] [phone] Marcela Ramirez CRNP [address] [place] [address] [place] [address] 12/28/2024 12:30 PM EDT Office Visit Cardiology [address] [place] [address] Graeme Pang PA-C [address] [place] [address] 04/22/2025 12:20 PM EDT Office Visit Dermatology [facility] [place] [address] [place] [address] Cindi Vo PA-C [address] [place] [address] 06/21/2025 1:40 PM EDT Office Visit Family Medicine [address] [phone] Rose Marie Galloway MD [address] [place] [address] [place] [address] 10/21/2025 1:00 PM EST Office Visit Optometry, [place] [address] [place] [address] Raudel Hernandez, OD [address] [place] [address] Health Maintenance Due Date Last Done Comments [...] Additional history exists CKD HGB USE SMARTSET 24946 05/14/202505/14, 11/12/2023, 11/12/2023, Additional history exists CKD PHOS USE SMARTSET 88772 05/25/202505/07, 12/24/2022, 12/05/2021, Additional history exists TSH [...] D LEVEL ONCE IN A LIFETIME-USE SMARTSET# 19270 Completed 05/25/2024, 06/04/2023, 11/05/2022, Additional history exists [...] this encounter Medical Devices Implanted Type Area Operations Trainer Device Identifier Shelf Expiration Date Model / Serial / Lot Alloderm 6 X 16cm Implanted:Qty: 1 on 02/05/2007 at [place] [facility] [place]: Breast FlameStower [id number] / [id number] / [id number] Description:Alloderm 6 x 16 cm to right breast [id number] - [id number] Implanted:Qty: 1 on 02/05/2007 at [place] [facility] Left: Breast LIFE CELL MADDIE 869184 / [id number] / [id number] Description:ALLODERM TO left breast 6 x 16cm [place] Breast Implant Implanted:Qty: 1 on 02/05/2007 at [place] [facility] [place] Right: Breast MENTOR MADDIE 08/06/2010 350-1697 / [id number] / [id number] Description:700ml Breast Imp lant to Right Breast [place] Breast Implant Implanted:Qty: 1 on 02/05/2007 at [place] [facility] Left: Breast MENTOR MADDIE 08/06/2010 350-1697 / [id number] / [id number] Description:[place] Breast Im plant to Left BreaST Graft Fascia Nevin 2x3 77152 - [id number] Implanted:Qty: 1 on 03/20/2010 at OR [facility] Right: Eye IOP INC 06/06/2014 42282 / / [id number] Breast Implant 350-1697 Saline - [id number] Implanted:Qty: 1 on 04/20/2011 at [place] [facility] Right: Breast MENTOR MADDIE 04/04/2015 350-1697 / [id number] 44 / [id number] Description:[place] smooth ro und moderate profile saline. Envelope Antibacteral Tyrx - [id number] Implanted:Qty: 1 on 05/14/2024 by Zulema Giordano IV, MD at [facility] [employer] : CRM [id number] 01/30/2025 CMRM6 133 / / [id number] Defib [place] Mri Quad Gang Ripsaw Operator-D - [id number] Implanted:Qty: 1 on 05/14/2024 by Zulema Giordano IV, MD at [facility] [employer] [id number] 07/03/2025 [id number] / [id number] / [id number] S Ring Morcher Type 14a Mr-1410 - [id number] Implanted:Qty: 1 on 08/17/2024 by Frank Zuñiga MD at OR [facility] Right: Eye MORCHER [id number] 04/04/2026 MR-1410 / [id number] / [id number] Lens 17.5 [id number] - [id number] Implanted:Qty: 1 on 08/17/2024 by Frank Zuñiga MD at OR [facility] Right: Eye ANNABELLE : SURGICAL [id number] 03/15/2029 [id number] / [id number] / [id number] documented as of this encounter Advance [...] and were consensually agreed upon. Care Teams Shopper Insights Manager Relationship Specialty Start Date End Date Rose Marie Galloway MD [address] [place] [address] [place] [address] PCP - General Family Medicine 05/24/14 documented as of this encounter
--- OUTSIDE RECORDS SUMMARY | 2024-11-25 03:25 | External Medical Summary | Summary of Care ---
Author Name Unknown Organization [facility] Address [address] [place] [address] Phone [phone] Care Team Providers Care Merchandise Flow Team Leader Name Role Phone Rose Marie Galloway MD Primary Care Provide r Reason for Visit * Reason Onset Date Comments Medication Question 11/03/2024 Encounter Details Date Type Department Care Team (Late st Contact Info) Description 11/03/2024 Telephone Cardiology, [facility] [address] [place] [address] Graeme Pang PA-C [address] [place] [address] Medication Question Allergies Active Allergy Reactions Criticality [...] Overview (12/04/2020): 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, [place] II, 11/2020) Hypertensive heart and kidne y [...] 08/23/2014 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 [facility] current use of anticoagulant therapy 0 05/12/2006 [...] (Moderna) 02/12/2021,01/15/2021 Pneumococcal Conjugate Vacci ne, 20-valent (Jzuhrbw07) 11/21/2022 Pneumococcal Polysaccharide PPV23 (Pneumovax) 08/12/2006 Seasonal [...] Eliquis 30 day free trial card at [facility]. Updated patient. She will let us know if she does not receive forms by end of this week. Mami Booth, PharmD Clinical Pharmacist - Alterations Supervisor [facility] 11/09/2024 4:17 PM * Telephone Encounter - Audrey Reynolds OSA - 11/09/2024 2:03 PM EST Person calling: Kayce Relationship to patient: self Phone/Fax to return call: [phone] Reason for call(brief): Eliquis Pharmacy: [facility] Provider Name:Graeme Pang Detailed message to office:Patient [...] there is any questions Roula Covarrubias Medication Radiology Transporter II [facility] 11/03/2024,6:27 PM * Telephone Encounter - [...] PM EST Called 30-day free trial into [facility] pharmacy. Brisa - are you able to help with further cost assistance? [facility] Pharmacist also mentioned new medicare program where patients are able to split drug copay up into monthly payments. [facility] attached a handout to patient's prescription with [...] prescription. Patient stated that she went to cotton picker the medication and was informed that it would cost over $800. Patient stated she cannot afford that and is asking if there is some type of copay assistance or if there is an alternative medication that is less expensive. Patient can be reached at [phone]. Thank you, Yulisa Zapata Baggage Handler I [facility] ([facility]) 11/03/2024,1:12 PM * Telephone Encounter - Katlyn Jacobs CPhT - 11/03/2024 1:05 PM EST Pt calling regarding Jardiance, last prescribed by Cardiology. Transferred to specialty tech line for further assistance. Thank you, Katlyn Jacobs CPhT Painting Technician II [facility] ([facility]) 11/03/2024,1:06 PM documented in this encounter Plan of Treatment Upcoming Encounters Date Type Department Care Team (Late st Contact Info) Description 11/30/2024 1:00 PM EST Nurse Only Ancillary [address] [place] [address] [place], Nurse [address] [place] [address] 11/30/2024 2:40 PM EST Office Visit Family Medicine [address] [place] [phone] Marcela Ramirez CRNP [address] [place] [address] [place] [address] 12/28/2024 12:30 PM EDT Office Visit Cardiology [address] [place] [address] Graeme Pang PA-C [address] [place] [address] 04/22/2025 12:20 PM EDT Office Visit Dermatology [facility] [place] [address] [place] [address] Cindi Vo PA-C [address] [place] [address] 06/21/2025 1:40 PM EDT Office Visit Family Medicine [address] [phone] Rose Marie Galloway MD [address] [place] [address] [place] [address] 10/21/2025 1:00 PM EST Office Visit Optometry, [place] [address] [place] [address] Raudel Hernandez, OD [address] [place] [address] Health Maintenance Due Date Last Done Comments [...] Additional history exists CKD HGB USE SMARTSET 57413 05/14/202505/14, 11/12/2023, 11/12/2023, Additional history exists CKD PHOS USE SMARTSET 20071 05/25/202505/07, 12/24/2022, 12/05/2021, Additional history exists TSH [...] D LEVEL ONCE IN A LIFETIME-USE SMARTSET# 00960 Completed 05/25/2024, 06/04/2023, 11/05/2022, Additional history exists [...] this encounter Medical Devices Implanted Type Area Labor Expediter Device Identifier Shelf Expiration Date Model / Serial / Lot Alloderm 6 X 16cm Implanted:Qty: 1 on 02/05/[address] [facility] [place] Right: Breast GamePix [id number] / [id number] / [id number] Description:Alloderm 6 x 16 cm to right breast [id number] - [id number] Implanted:Qty: 1 on 02/05/[address] [facility] [place] Left: Breast LIFE CELL MADDIE 116190 / [id number] / [id number] Description:ALLODERM TO left breast 6 x 16cm [place] Breast Implant Implanted:Qty: 1 on 02/05/[address] [facility] [place] Right: Breast MENTOR MADDIE 08/06/2010 350-1697 / [id number] 42 / [id number] Description:700ml Breast Imp lant to Right Breast [place] Breast Implant Implanted:Qty: 1 on 02/05/[address] [facility] [place] Left: Breast MENTOR MADDIE 08/06/2010 350-1697 / [id number] 93 / [id number] Description:[place] Breast Im plant to Left BreaST Graft Fascia Nevin 2x3 37116 - [id number] Implanted:Qty: 1 on 03/20/2010 at OR [facility] Right: Eye IOP INC 06/06/2014 92483 / / [id number] Breast Implant 350-1697 Saline - [id number] Implanted:Qty: 1 on 04/20/[address] [facility] [place] Right: Breast MENTOR MADDIE 04/04/2015 350-1697 / [id number] / [id number] Description:[place] smooth ro und moderate profile saline. Envelope Antibacteral Tyrx - [id number] Implanted:Qty: 1 on 05/14/2024 by Zulema Giordano IV, MD at CARDI[facility]S [facility] [employer] : CRM [id number] 01/30/2025 CMRM6 133 / / [id number] Defib [place] Mri Quad Circulation Supervisor-D - [id number] Implanted:Qty: 1 on 05/14/2024 by Zulema Giordano IV, MD at [facility]ARDI[facility] [employer] [id number] 07/03/2025 [id number] / [id number] / [id number] S Ring Morcher Type 14a Mr-1410 - [id number] Implanted:Qty: 1 on 08/17/2024 by Frank Zuñiga MD at OR [facility] Right: Eye MORCHER [id number] 04/04/2026 MR-1410 / [id number] / [id number] Lens 17.5 [id number] - [id number] Implanted:Qty: 1 on 08/17/2024 by Frank Zuñiga MD at OR [facility] Right: Eye ANNABELLE : SURGICAL [id number] 03/15/2029 [id number] / [id number] / [id number] documented as of this encounter Advance [...] and were consensually agreed upon. Care Teams Merchandise Flow Team Leader Relationship Specialty Start Date End Date Rose Marie Galloway MD [address] [place] [address] [place] [address] PCP - General Family Medicine 05/24/14 documented as of this encounter
--- OUTSIDE RECORDS SUMMARY | 2024-11-25 03:26 | External Medical Summary | Summary of Care ---
Author Name Unknown Organization [facility] Address [address] [place] [address] Phone [phone] Care Team Providers Care Air Traffic Control Operator Name Role Phone Rose Marie Galloway MD Primary Care Provide r Encounter Details Date Type Department Care Team (Late st Contact Info) Description 10/25/2024 Population Health External Data Unspecified Department Allergies Active Allergy Reactions Criticality Noted Date Comments Docetaxel 02/14/2011 Chest pain, passed out , could not talk, saw silver round bubbles documented as of this encounter (statuses as of 10/25/2024) Medications OXYCODONE HCL 10 MG PO TABSIndications:pa [...] as of this encounter (statuses as of 10/25/2024) Active Problems Problem Noted Date Diagnosed Date NICM (nonischemic cardiomyopathy) 04/19/2024 ICD (implantable cardioverter-defibrillator) in place 04/19/2024 Chronic kidney disease, stage 3b 11/18/2022 Overview: Per CKD protocol Osteoporosis, postmenopausal 11/05/2022 Permanent atrial fibrillation 11/05/2022 Peripheral vascular disease 10/23/2021 Hx of melanoma of skin 12/04/2020 Overview (12/04/2020): 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, [place] II, 11/2020) Hypertensive heart and kidne y [...] 08/23/2014 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 intermediate frame tender current use of anticoagulant therapy 0 05/12/2006 Overview (07/07/2017): ICD-10 update of inactive term History of breast cancer 03/28/2006 Family history of other cardiovascular diseases 05/14/2005 Overview (12/28/2015): ICD-10 update of inactive term FAMILY HX-BREAST MALIG 05/14/2005 HTN, goal below 140/90 06/26/2001 Blindness of left eye documented as of this encounter (statuses as of 10/25/2024) Resolved Problems Problem Noted Date Diagnosed Date [...] as of this encounter (statuses as of 10/25/2024) Immunizations Name Administration Dates Next Due COVID-19 mRNA, LNP-s, No Pre serve, 2-Dose Series (Moderna) 02/12/2021,01/15/2021 Pneumococcal Conjugate Vacci ne, 20-valent (Spsviyy95) 11/21/2022 Pneumococcal Polysaccharide PPV23 (Pneumovax) 08/12/2006 Seasonal [...] Care Team (Late st Contact Info) Description 11/05/2024 11:30 AM EST Office Visit Optometry [address] [address] Raudel Hernandez, OD [address] [place] [address] 11/30/2024 1:00 PM EST Nurse Only Ancillary [address] [place] [address] [place], Nurse [address] [place] [address] 11/30/2024 2:40 PM EST Office Visit Family Medicine [address] [place] [phone] Marcela Ramirez CRNP [address] [place] [address] [place] [address] 12/28/2024 12:30 PM EDT Office Visit Cardiology [address] [place] [address] Graeme Pang PA-C [address] [place] [address] 06/21/2025 1:40 PM EDT Office Visit Family [address] [place] [phone] Rose Marie Galloway MD [address] [place] [address] [place] [address] 10/21/2025 1:00 PM EST Office Visit Optometry [place] [address] [place] [address] Raudel Hernandez, OD [address] [place] [address] Health Maintenance Due Date Last Done Comments [...] Additional history exists CKD HGB USE SMARTSET 32201 05/14/202505/14, 11/12/2023, 11/12/2023, Additional history exists CKD PHOS USE SMARTSET 49318 05/25/2025 082 , 12/24/2022, 12/05/2021, Additional history exists TSH 05/25/2025 05/25/2024, 02/0 04/2024, 09/25/2023, Additional history exists Cologuard 08/21/2025 08/21/2022, 11/0 05/2022, 08/13/2022, Additional history exists Colorectal Cancer Screening 08/21/2025 Depression Screening 10/20/2025 10/20/2024 Diabetes Screening 09/20/2027 09/20/2024, 1 10/17/2023, 05/25/2024, Additional history exists DTap/Tdap Vaccines (3 - Td or Tdap) 09/01/2028 09/01/2018, 03/14/2008 Lipid Panel 11/12/2028 11/12/2023, 12/05, 01/24/2022, Additional history exists Pap Smear Discontinued 03/26/2022, 03/06, 11/27/2015, Additional history exists Pneumococcal Vaccine: 50+ Years Completed 11/21/2022, 08/12/2006 VITAMIN D LEVEL ONCE IN A LIFETIME-USE SMARTSET# 50695 Completed 05/25/2024, 06/04/2023, 11/05/2022, Additional history exists [...] this encounter Medical Devices Implanted Type Area Cathode Washer Device Identifier Shelf Expiration Date Model / Serial / Lot Alloderm 6 X 16cm Implanted:Qty: 1 on 02/05/2007 at OR [facility] [place] Right: Breast LIFE CELL MADDIE [id number] / [id number] / [id number] Description:Alloderm 6 x 16 cm to right breast [id number] - [id number] Implanted:Qty: 1 on 02/05/2007 at OR [facility] Left: Breast LIFE CELL MADDIE [id number] / [id number] / [id number] Description:ALLODERM TO left breast 6 x 16cm [place] Breast Implant Implanted:Qty: 1 on 02/05/2007 at OR [facility] [place] Right: Breast MENTOR MADDIE 08/06/2010 350-1697 / [id number] / [id number] Description:700ml Breast Imp lant to Right Breast [place] Breast Implant Implanted:Qty: 1 on 02/05/2007 at OR [facility] [place] Left: Breast MENTOR MADDIE 08/06/2010 350-1697 / [id number] / [id number] Description:[place] Breast Im plant to Left BreaST Graft Fascia Nevin 2x3 09221 - [id number] Implanted:Qty: 1 on 03/20/2010 at OR [facility] Right: Eye [employer] 06/06/2014 [id number] / / [id number] Breast Implant 350-8017 Saline - [id number] Implanted:Qty: 1 on 04/20/2011 at OR [facility] Right: Breast MENTOR MADDIE 04/04/2015 350-1697 / [id number] / [id number] Description:[place] smooth ro und moderate profile saline. Envelope Antibacteral Tyrx - [id number] Implanted:Qty: 1 on 05/14/2024 by Zulema Giordano IV, MD at [facility] [employer] : CRM [id number] 01/30/2025 [id number] / / [id number] Defib [place] Mri Quad Business Intelligence Developer-D - [id number] Implanted:Qty: 1 on 05/14/2024 by Zulema Giordano IV, MD at [facility] [employer] [id number] 07/03/2025 [id number] / [id number] / [id number] Ring Morcher Type 14a Mr-1410 - [id number] Implanted:Qty: 1 on 08/17/2024 by Frank Zuñiga MD at OR [facility] Right: Eye MORCHER [id number] 04/04/2026 MR-1410 / [id number] / [id number] Lens 17.5 [id number] - [id number] Implanted:Qty: 1 on 08/17/2024 by Frank Zuñiga MD at OR [facility] Right: Eye ANNABELLE : SURGICAL [id number] 03/15/2029 [id number] / [id number] / [id number] documented as of this encounter Advance [...] and were consensually agreed upon. Care Teams Air Traffic Control Operator Relationship Specialty Start Date End Date Rose Marie Galloway MD [address] [place] [address] [place] [phone] PCP - General Family Medicine 05/24/14 documented as of this encounter
--- OUTSIDE RECORDS SUMMARY | 2024-11-25 03:26 | External Medical Summary | Summary of Care ---
Author Name Unknown Organization [facility] Address [address] [place] [address] Phone [phone] Care Team Providers Care Santa'S Helper Name Role Phone Rose Marie Galloway MD Primary Care Provide r Encounter Details Date Type Department Care Team (Late st Contact Info) Description 10/18/2024 1:45 PM EST Documentation Eyewear [address] [address] [place], Eyewear [address] [place] [phone] History of intraocular lens implant* Allergies Active Allergy Reactions Criticality Noted Date Comments Docetaxel 02/14/2011 Chest pain, passed out , could not talk, saw silver round bubbles documented as of this encounter (statuses as of 10/22/2024) Medications OXYCODONE HCL 10 MG PO TABSIndications:pa in as needed Take by mouth every 8 hours as needed . Active Vitamin D3 50 MCG (1999 UT) Oral Capsule Take 1 Capsule by mouth in the morning. 30 Capsule 5 11/21/19 23 Active Furosemide 40 MG Oral Tablet (Lasix)Indications :Hypokalemia,Heart failure, systolic, with acute decompensation (HCC) TAKE 1 TABLET EVERY OTHER DAY, OR DIRECTED 45 Tablet 3 11/12/19 24 Active Jardiance 10 MG Oral Tablet (Empagliflozin)Ind [...] 24 Active Eliquis 5 MG Oral Tablet (Apixaban)Indicati ons:Permanent atrial fibrillation (HCC) TAKE 1 TABLET BY MOUTH TWICE A DAY 180 Tablet 1 08/11/20 24 Active Spironolactone 25 MG Oral Tablet (Aldactone)Indicat ions:HTN, goal below 140/90,Heart failure, systolic, with acute decompensation (HCC) Take 0.5 Tablets by mouth once a day on Friday, Friday, and Friday only. 19 Tablet 3 08/13/20 24 Active Moxifloxacin HCl 0.5 % Ophthalmic Solution (Vigamox) Instill 1 Drop into the right eye in the morning and 1 Drop at noon and 1 Drop in the evening and 1 Drop before bedtime. 3 mL 08/23/20 24 025 Discontin ued(Medic ation List Clean Up) prednisoLONE Acetate 1 % Ophthalmic Suspension (Pred Forte) Instill 1 Drop into the right eye in the morning and 1 Drop at noon and 1 Drop in the evening and 1 Drop before bedtime. To begin after eye surgery. 10 mL 09/08/20 24 025 Discontin ued(Medic ation List Clean Up) documented as of this encounter (statuses as of 10/22/2024) Active Problems Problem Noted Date Diagnosed Date NICM (nonischemic cardiomyopathy) 04/19/2024 ICD (implantable cardioverter-defibrillator) in place 04/19/2024 Chronic kidney disease, stage 3b 11/18/2022 Overview: Per CKD protocol Osteoporosis, postmenopausal 11/05/2022 Permanent atrial fibrillation 11/05/2022 Peripheral vascular disease 10/23/2021 Hx of melanoma of skin 12/04/2020 Overview (12/04/2020): 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, [place] II, 11/2020) Hypertensive heart and kidne y [...] 08/23/2014 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 manager intermediate current use of anticoagulant therapy 0 05/12/2006 Overview (07/07/2017): ICD-10 update of inactive term History of breast cancer 03/28/2006 Family history of other cardiovascular diseases 05/14/2005 Overview (12/28/2015): ICD-10 update of inactive term FAMILY HX-BREAST MALIG 05/14/2005 HTN, goal below 140/90 06/26/2001 Blindness of left eye documented as of this encounter (statuses as of 10/22/2024) Resolved Problems Problem Noted Date Diagnosed Date [...] as of this encounter (statuses as of 10/22/2024) Immunizations Name Administration Dates Next Due COVID-19 mRNA, LNP-s, No Pre serve, 2-Dose Series (Moderna) 02/12/2021,01/15/2021 Pneumococcal Conjugate Vacci ne, 20-valent (Povqndm92) 11/21/2022 Pneumococcal Polysaccharide PPV23 (Pneumovax) 08/12/2006 Seasonal [...] Description 11/05/2024 11:30 AM EST Office Visit Optometry, [address] [address] Raudel Hernandez, OD 16 [place] [address] 11/30/2024 1:00 PM EST Nurse Only Ancillary [address] [place] [address] [place], Nurse Annual Wellness [address] [place] [address] [place] [address] 11/30/2024 2:40 PM EST Office Visit Family Medicine [address] [place] [phone] Marcela Ramirez [address] [place] [address] 12/28/2024 12:30 PM EDT Office Visit Cardiology [address] [place] [address] Graeme Pang PA-C [address] [place] [address] 06/21/2025 1:40 PM EDT Office Visit Family Medicine [address] [place] [phone] Rose Marie Galloway MD [address] [place] [address] [place] [address] 10/21/2025 1:00 PM EST Office Visit Optometry, [place] 16 [place] [address] Raudel Hernandez, OD [address] [place] [address] Health Maintenance Due Date Last Done Comments [...] 11/27/2024 11/27/2023, 11/26/19 23 GFR 03/21/2025 09/20/2024, 08, 05/14/2024, Additional history exists CKD HGB USE SMARTSET 59047 05/14/202505/14, 11/12/2023, 11/12/2023, Additional history exists CKD PHOS USE SMARTSET 41143 05/25/202505/07, 12/24/2022, 12/05/2021, Additional history exists TSH [...] D LEVEL ONCE IN A LIFETIME-USE SMARTSET# 79490 Completed 05/25/2024, 06/04/2023, 11/05/2022, Additional history exists [...] this encounter Medical Devices Implanted Type Area Surveillance Systems Analyst Device Identifier Shelf Expiration Date Model / Serial / Lot Alloderm 6 X 16cm Implanted:Qty: 1 on 02/05/2007 at OR [facility] [place] Right: Breast LIFE CELL MADDIE [id number] / [id number] / [id number] Description:Alloderm 6 x 16 cm to right breast [id number] - [id number] Implanted:Qty: 1 on 02/05/2007 at OR [facility] Left: Breast LIFE CELL MADDIE [id number] / [id number] / [id number] Description:ALLODERM TO left breast 6 x 16cm [place] Breast Implant Implanted:Qty: 1 on 02/05/2007 at OR [facility] Right: Breast MENTOR MADDIE 08/06/2010 350-1697 / [id number] / [id number] Description:700ml Breast Imp lant to Right Breast [place] Breast Implant Implanted:Qty: 1 on 02/05/2007 at OR [facility] Left: Breast MENTOR MADDIE 08/06/2010 350-1697 / [id number] / [id number] Description:[place] Breast Im plant to Left BreaST Graft Fascia Nevin 2x3 30398 - [id number] Implanted:Qty: 1 on 03/20/2010 at OR [facility] Right: Eye IOP INC 06/06/2014 51340 / / [id number] Breast Implant 350-1697 Saline - [id number] Implanted:Qty: 1 on 04/20/2011 at OR [facility] Right: Breast MENTOR MADDIE 04/04/2015 350-1697 / [id number] / [id number] Description:[place] smooth ro und moderate profile saline. Envelope Antibacteral Tyrx - [id number] Implanted:Qty: 1 on 05/14/2024 by Zulema Giordano IV, MD at [facility] [employer] : CRM [id number] 01/30/2025 CMRM6 133 / / [id number] Defib [place] Mri Quad Traffic Assistant-D - [id number] Implanted:Qty: 1 on 05/14/2024 by Zulema Giordano IV, MD at [facility] [employer] [id number] 07/03/2025 [id number] / [id number] / [id number] S Ring Morcher Type 14a Mr-1410 - [id number] Implanted:Qty: 1 on 08/17/2024 by Frank Zuñiga MD at OR [facility] Right: Eye MORCHER [id number] 04/04/2026 MR-1410 / [id number] / [id number] Lens 17.5 [id number] - [id number] Implanted:Qty: 1 on 08/17/2024 by Frank Zuñiga MD at OR [facility] Right: Eye ANNABELLE : SURGICAL [id number] 03/15/2029 [id number] / [id number] / [id number] documented as of this encounter Visit Diagnoses Diagnosis History of intraocular lens implant- Primary Lens replaced by other means documented in this encounter Advance Directives * [...] and were consensually agreed upon. Care Teams Santa'S Helper Relationship Specialty Start Date End Date Rose Marie Galloway MD [address] [place] [address] [place] [address] PCP - General Family Medicine 05/24/14 documented as of this encounter
--- OUTSIDE RECORDS SUMMARY | 2024-11-25 03:26 | External Medical Summary | Summary of Care ---
Author Name Unknown Organization [facility] Address [address] [place] [address] Phone [phone] Care Team Providers Care Emergency Worker Name Role Phone Rose Marie Galloway MD Primary Care Provide r Encounter Details Date Type Department Care Team (Late st Contact Info) Description 10/18/2024 1:45 PM EST Documentation Eyewear [address] [address] [place], Eyewear [address] [place] [phone] History of intraocular lens implant* Allergies Active [...] Overview (12/04/2020): 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, [place] II, 11/2020) Hypertensive heart and kidne y [...] 08/23/2014 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 terminal computer operator current use of anticoagulant therapy 0 05/12/2006 [...] (Moderna) 02/12/2021,01/15/2021 Pneumococcal Conjugate Vacci ne, 20-valent (Pcidjcg70) 11/21/2022 Pneumococcal Polysaccharide PPV23 (Pneumovax) 08/12/2006 Seasonal [...] 11/05/2024 11:30 AM EST Office Visit Optometry, [address] [address] Raudel Hernandez, OD 16 [place] [address] 11/30/2024 1:00 PM EST Nurse Only Ancillary [address] [place] [address] [place], Nurse Annual Wellness [address] [place] [address] [place] [address] 11/30/2024 2:40 PM EST Office Visit Family Medicine [address] [place] [phone] Marcela Ramirez [address] [place] [address] 12/28/2024 12:30 PM EDT Office Visit Cardiology [address] [place] [address] Graeme Pang PA-C [address] [place] [address] 06/21/2025 1:40 PM EDT Office Visit Family Medicine [address] [place] [phone] Rose Marie Galloway MD [address] [place] [address] [place] [address] 10/21/2025 1:00 PM EST Office Visit Optometry, [place] [address] [place] [address] Raudel Hernandez, OD [address] [place] [address] Health Maintenance Due Date Last Done Comments [...] Additional history exists CKD HGB USE SMARTSET 40022 05/14/202505/14, 11/12/2023, 11/12/2023, Additional history exists CKD PHOS USE SMARTSET 84978 05/25/202505/07, 12/24/2022, 12/05/2021, Additional history exists TSH [...] D LEVEL ONCE IN A LIFETIME-USE SMARTSET# 76040 Completed 05/25/2024, 06/04/2023, 11/05/2022, Additional history exists [...] this encounter Medical Devices Implanted Type Area Utility Aircrewman Device Identifier Shelf Expiration Date Model / Serial / Lot Alloderm 6 X 16cm Implanted:Qty: 1 on 02/05/2007 [place] [facility]: Breast LIFE CELL MADDIE [id number] / [id number] / [id number] Description:Alloderm 6 x 16 cm to right breast [id number] - [id number] Implanted:Qty: 1 on 02/05/2007 [place] [facility] Left: Breast LIFE CELL MADDIE [id number] / [id number] / [id number] Description:ALLODERM TO left breast 6 x 16cm [place] Breast Implant Implanted:Qty: 1 on 02/05/2007 [place] [facility] Right: Breast MENTOR MADDIE 08/06/2010 350-1697 / [id number] / [id number] Description:700ml Breast Imp lant to Right Breast [place] Breast Implant Implanted:Qty: 1 on 02/05/2007 [place] [facility] Left: Breast MENTOR MADDIE 08/06/2010 350-1697 / [id number] / [id number] Description:[place] Breast Im plant to Left BreaST Graft Fascia Nevin 2x3 95891 - [id number] Implanted:Qty: 1 on 03/20/2010 at OR [facility] Right: Eye [employer] 06/06/2014 36641 / / [id number] Breast Implant 350-1697 Saline - [id number] Implanted:Qty: 1 on 04/20/2011 [place] [facility] Right: Breast MENTOR MADDIE 04/04/2015 350-1697 / [id number] / [id number] Description:[place] smooth ro und moderate profile saline. Envelope Antibacteral Tyrx - [id number] Implanted:Qty: 1 on 05/14/2024 by Zulema Giordano IV, MD at [facility] [employer] : CRM [id number] 01/30/2025 CMRM6 133 / / [id number] Defib [place] Mri Quad Graphic Manager-D - [id number] Implanted:Qty: 1 on 05/14/2024 by Zulema Giordano IV, MD at [facility] [employer] [id number] 07/03/2025 [id number] / [id number] / [id number] S Ring Morcher Type 14a Mr-1410 - [id number] Implanted:Qty: 1 on 08/17/2024 by Frank Zuñiga MD at OR [facility] Right: Eye MORCHER [id number] 04/04/2026 MR-1410 / [id number] / [id number] Lens 17.5 [id number] - [id number] Implanted:Qty: 1 on 08/17/2024 by Frank Zuñiga MD at OR [facility] Right: Eye ANNABELLE : SURGICAL [id number] 03/15/2029 [id number] / [id number] / [id number] documented as of this encounter Visit [...] and were consensually agreed upon. Care Teams Emergency Worker Relationship Specialty Start Date End Date Rose Marie Galloway MD [address] [place] [address] [place] [address] PCP - General Family Medicine 05/24/14 documented as of this encounter
--- OUTSIDE RECORDS SUMMARY | 2024-11-25 03:26 | External Medical Summary | Summary of Care ---
Author Name Unknown Organization [facility] Address [address] [place] [address] Phone [phone] Care Team Providers Care Conveyor Belt Repairer Name Role Phone Rose Marie Galloway MD Primary Care Provide r Encounter Details Date Type Department Care Team (Late st Contact Info) Description 10/18/2024 1:45 PM EST Documentation Eyewear [address] [address] [place], Eyewear [address] [place] [phone] History of intraocular lens implant* Allergies Active Allergy Reactions Criticality Noted Date Comments Docetaxel 02/14/2011 Chest pain, passed out , could not talk, saw silver round bubbles documented as of this encounter (statuses as of 10/20/2024) Medications OXYCODONE HCL 10 MG PO TABSIndications:pa [...] Friday only. 19 Tablet 3 4 Active Moxifloxacin HCl 0.5 % Ophthalmic Solution (Vigamox) Instill 1 Drop into the right eye in the morning and 1 Drop at noon and 1 Drop in the evening and 1 Drop before bedtime. 3 mL 4 Active prednisoLONE Acetate 1 % Ophthalmic Suspension (Pred Forte) Instill 1 Drop into the right eye in the morning and 1 Drop at noon and 1 Drop in the evening and 1 Drop before bedtime. To begin after eye surgery. 10 mL 4 Active documented as of this encounter (statuses as of 10/20/2024) Active Problems Problem Noted Date Diagnosed Date NICM (nonischemic cardiomyopathy) 04/19/2024 ICD (implantable cardioverter-defibrillator) in place 04/19/2024 Chronic kidney disease, stage 3b 11/18/2022 Overview: Per CKD protocol Osteoporosis, postmenopausal 11/05/2022 Permanent atrial fibrillation 11/05/2022 Peripheral vascular disease 10/23/2021 Hx of melanoma of skin 12/04/2020 Overview (12/04/2020): 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, [place] II, 11/2020) Hypertensive heart and kidne y [...] 08/23/2014 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 prison current use of anticoagulant therapy 0 05/12/2006 Overview (07/07/2017): ICD-10 update of inactive term History of breast cancer 03/28/2006 Family history of other cardiovascular diseases 05/14/2005 Overview (12/28/2015): ICD-10 update of inactive term FAMILY HX-BREAST MALIG 05/14/2005 HTN, goal below 140/90 06/26/2001 Blindness of left eye documented as of this encounter (statuses as of 10/20/2024) Resolved Problems Problem Noted Date Diagnosed Date [...] as of this encounter (statuses as of 10/20/2024) Immunizations Name Administration Dates Next Due COVID-19 mRNA, LNP-s, No Pre serve, 2-Dose Series (Moderna) 02/12/2021,01/15/2021 Pneumococcal Conjugate Vacci ne, 20-valent (Neaialy78) 11/21/2022 Pneumococcal Polysaccharide PPV23 (Pneumovax) 08/12/2006 Seasonal [...] Date Recorded PHQ Adult Total Score 0 11/27/2023 Hunger Vital Sign Answer Date Recorded Within the past 12 months, y ou worried that your food would run out before you got the money to buy more. Never true 11/27/19 24 Within the past 12 months, t he food you bought just didn't last and you didn't have money to get more. Never true 11/27/2023 Childcare Answer Date Recorded Do you feel overwhelmed with taking care of a child, family member or friend? No 11/27/2023 Does your family need help f inding childcare? (Household - for ages 0-17 years) Not on file 11/27/2023 Clothing Answer Date Recorded Have you been unable to get clothing when it was really needed? No 11/27/2023 Is your family able to get c lothes or diapers when needed? (Household - for ages 0-17 years) Not on file 11/27/2023 Personal Safety Answer Date Recorded Do you feel unsafe or have concerns for your saf ety? No 11/27/2023 Do you have concerns for you r family's safety? (Household - for ages 0-17 years) Not on file 11/27/2023 Utilities Answer Date Recorded Do you have trouble paying y our heating, water, or electric bill? No 11/27/2023 Is your family able to pay t he heat, water, or electric bill? (Household - for ages 0-17 years) Not on file 11/27/2023 Does your family have access to good internet? (Household - for ages 0-17 years) Not on file 11/27/2023 Employment Status Answer Date Recorded Are you unemployed or without regular income? No 11/27/2023 Does the household have a re gular source of income? (Household - for ages 0-17 years) Not on file 11/27/2023 Social Connections Answer Date Recorded How often do you feel lonely or isolated from th ose around you? Never 11/27/2023 Financial Resource Strain Answer Date R ecorded Do you have any trouble payi ng for your medications, or do you think you might in the future? No 11/27/2023 Does your family have troubl e paying for medicine? (Household - for ages 0-17 years) Not on file 11/27/2023 Transportation Needs Answer Date Record ed READ ONLY Do you have troubl e getting a ride to medical visits or work? Never True 11/27/2023 Does your family have a hard time getting a ride to doctors visits? (Household - for ages 0-17 years) Not on file 11/27/2023 Has lack of transportation k ept you from medical appointments, meetings, work, or from getting things needed for daily living? Check all that apply. (Adult - for ages 18 years and over) Not on file 11/27/2023 Do you (or your family) have trouble finding or paying for a ride (transportation)? (Household - for ages 0-17 years) Not on file 11/27/2023 Housing Stability Answer Date Recorded Do you currently live in a s helter or have no steady place to sleep at night? No 11/27/2023 READ ONLY Do you think you a re at risk of becoming homeless? No 11/27/2023 Does your family worry about paying for your home or becoming homeless? (Household - for ages 0-17 years) Not on file 0 11/27/2023 Are you homeless or worried that you might be in the future? (Adult - for ages 18 years and over) Not on file Are you (or your family) marko eless or worried that you might be in the future? (Household - for ages 0-17 years) Not on file Food Insecurity Answer Date Recorded Do you need food for this week? No 11/27/2023 Are you able to get enough f ood for your family? (Household - for ages 0-17 years) Not on file 11/27/2023 Does your family need food t his week? (Household - for ages 0-17 years) Not on file 11/27/2023 Do you always have enough fo od for your family? (Household - for ages 0-17 years) Not on file 11/27/2023 Comments No Sex and Gender Information Value [...] 11/05/2024 11:30 AM EST Office Visit Optometry, [address] [address] Raudel Hernandez, OD [address] [place] [address] 11/30/2024 1:00 PM EST Nurse Only Ancillary [address] [place] [address] [place], Nurse Annual [address] [place] [address] 11/30/2024 2:40 PM EST Office Visit Family Medicine [address] [place] [phone] Marcela Ramirez [address] [place] [address] 12/28/2024 12:30 PM EDT Office Visit Cardiology [address] [place] [address] Graeme Pang PA-C [address] [place] [address] 12/29/2024 1:20 PM EDT Office Visit Dermatology [address] [place] [address] Mami Rodriguez PA-C [address] [place] [address] [place] [address] 06/21/2025 1:40 PM EDT Office Visit Family Medicine [address] [place] [phone] Rose Marie Galloway MD [address] [place] [address] [place] [address] 10/21/2025 1:00 PM EST Office Visit Optometry, [place] [address] [place] [address] Raudel Hernandez, OD 16 [place], [place] [address] Health Maintenance Due Date Last Done Comments [...] 11/04/2022 Adult Wellness Visit 11/27/2024 11/27/2023, 11/26/19 Depression Screening 11/27/2024 11/27/2023 GFR 03/21/2025 09/20/2024, 05/07, 05/14/2024, Additional history exists CKD HGB USE SMARTSET 85380 05/14/202505/14, 11/12/2023, 11/12/2023, Additional history exists CKD PHOS USE SMARTSET 25435 05/25/202505/07, 12/24/2022, 12/05/2021, Additional history exists TSH 05/25/2025 05/25/2024, 04/2024, 09/25/2023, Additional history exists Cologuard 08/21/2025 08/21/2022, 05/2022, 08/13/2022, Additional history exists Colorectal Cancer Screening 08/21/2025 Diabetes Screening 09/20/2027 09/20/2024, 1 10/17/2023, 05/25/2024, Additional history exists DTap/Tdap Vaccines (3 - Td or Tdap) 09/01/2028 09/01/2018, 03/14/2008 Lipid Panel 11/12/2028 11/12/2023, 12/05, 01/24/2022, Additional history exists Pap Smear Discontinued 03/26/2022, 03/06, 11/27/2015, Additional history exists Pneumococcal Vaccine: 50+ Years Completed 11/21/2022, 08/12/2006 VITAMIN D LEVEL ONCE IN A LIFETIME-USE SMARTSET# 17279 Completed 05/25/2024, 06/04/2023, 11/05/2022, Additional history exists [...] this encounter Medical Devices Implanted Type Area Agronomy Technician Device Identifier Shelf Expiration Date Model / Serial / Lot Alloderm 6 X 16cm Implanted:Qty: 1 on 02/05/2007 at [place] [facility] [place] Right: Breast LIFE CELL MADDIE [id number] / [id number] / [id number] Description:Alloderm 6 x 16 cm to right breast [id number] - [id number] Implanted:Qty: 1 on 02/05/2007 at OR [facility] [place] Left: Breast LIFE CELL MADDIE [id number] / [id number] / [id number] Description:ALLODERM TO left breast 6 x 16cm [place] Breast Implant Implanted:Qty: 1 on 02/05/2007 at OR [facility] [place] Right: Breast MENTOR MADDIE 08/06/2010 350-1697 / [id number] / [id number] Description:700ml Breast Imp lant to Right Breast [place] Breast Implant Implanted:Qty: 1 on 02/05/2007 at OR [facility] [place] Left: Breast MENTOR MADDIE 08/06/2010 350-1697 / [id number] / [id number] Description:[place] Breast Im plant to Left BreaST Graft Fascia Nevin 2x3 72564 - [id number] Implanted:Qty: 1 on 03/20/2010 at [facility] Right: Eye IOP INC 06/06/2014 [id number] / / [id number] Breast Implant 350-1697 Saline - [id number] Implanted:Qty: 1 on 04/20/2011 at OR [facility] Right: Breast MENTOR MADDIE 04/04/2015 350-1697 / [id number] / [id number] Description:[place] smooth ro und moderate profile saline. Envelope Antibacteral Tyrx - [id number] Implanted:Qty: 1 on 05/14/2024 by Zulema Giordano IV, MD at [facility] [employer] : CRM [id number] 01/30/2025 [id number] / / [id number] Defib [place] Mri Quad Cream Separator Operator-D - [id number] Implanted:Qty: 1 on 05/14/2024 by Zulema Giordano IV, MD at [facility] [employer] [id number] 07/03/2025 [id number] / [id number] / [id number] S Ring Morcher Type 14a Mr-1410 - [id number] Implanted:Qty: 1 on 08/17/2024 by Frank Zuñiga MD at OR [facility] Right: Eye LUISCHER [id number] 04/04/2026 MR-1410 / [id number] / [id number] Lens 17.5 [id number] - [id number] Implanted:Qty: 1 on 08/17/2024 by Frank Zuñiga MD at [facility] Right: Eye ANNABELLE : SURGICAL [id number] 03/15/2029 [id number] / [id number] / [id number] documented as of this encounter Visit [...] and were consensually agreed upon. Care Teams Conveyor Belt Repairer Relationship Specialty Start Date End Date Rose Marie Galloway MD [address] [place] [address] [place] [address] PCP - General Family Medicine 05/24/14 documented as of this encounter
--- OUTSIDE RECORDS SUMMARY | 2024-11-25 03:26 | External Medical Summary | Summary of Care ---
Author Name Unknown Organization [facility] Address [address] [place] [address] Phone [phone] Care Team Providers Care Dry Ice Maker Name Role Phone Rose Marie Galloway MD Primary Care Provide r Encounter Details Date Type Department Care Team (Late st Contact Info) Description 10/25/2024 Result Scan Unspecified Department Dilan Jamil, DO [address] [place] [address] <No scans attached> Allergies Active Allergy Reactions [...] Overview (12/04/2020): 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, [place] II, 11/2020) Hypertensive heart and kidne y [...] 08/23/2014 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 Aehehue-Pwkkf-Czeoo disease 12/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 terminal worker current use of anticoagulant therapy 0 05/12/2006 [...] (Moderna) 02/12/2021,01/15/2021 Pneumococcal Conjugate Vacci ne, 20-valent (Aqxkanc21) 11/21/2022 Pneumococcal Polysaccharide PPV23 (Pneumovax) 08/12/2006 Seasonal [...] 11/05/2024 11:30 AM EST Office Visit Optometry, [place] [address] [place] [address] Raudel Hernandez, OD 16 [place] [address] 11/30/2024 1:00 PM EST Nurse Only Ancillary [address] [place] [address] [place], Nurse [address] [place] [address] 11/30/2024 2:40 PM EST Office Visit Family Medicine [address] [place] [phone] Marcela Ramirez [address] [place] [address] 12/28/2024 12:30 PM EDT Office Visit Cardiology [address] [place] [address] Graeme Pang PA-C [address] [place] [address] 06/21/2025 1:40 PM EDT Office Visit Family Medicine [address] [place] [phone] Rose Marie Galloway MD [address] [place] [address] [place] [address] 10/21/2025 1:00 PM EST Office Visit Optometry, [place] [address] [place] [address] Raudel Hernandez, OD 16 [place] [address] Health Maintenance Due Date Last Done Comments [...] Additional history exists CKD HGB USE SMARTSET 19002 05/14/202505/14, 11/12/2023, 11/12/2023, Additional history exists CKD PHOS USE SMARTSET 00983 05/25/2025 082 , 12/24/2022, 12/05/2021, Additional history exists TSH 05/25/2025 05/25/2024, 04/2024, 09/25/2023, Additional history exists Cologuard 08/21/2025 08/21/2022, 05/2022, 08/13/2022, Additional history exists Colorectal Cancer Screening 08/21/2025 Depression Screening 10/20/2025 10/20/2024 Diabetes Screening 09/20/2027 09/20/2024, 1 10/17/2023, 05/25/2024, Additional history exists DTap/Tdap Vaccines (3 - Td or Tdap) 09/01/2028 09/01/2018, 03/14/2008 Lipid Panel 11/12/2028 11/12/2023, /10/2022, 01/24/2022, Additional history exists Pap Smear Discontinued 03/26/2022, 03/06, 11/27/2015, Additional history exists Pneumococcal Vaccine: 50+ Years Completed 11/21/2022, 08/12/2006 VITAMIN D LEVEL ONCE IN A LIFETIME-USE SMARTSET# 84232 Completed 05/25/2024, 06/04/2023, 11/05/2022, Additional history exists [...] this encounter Medical Devices Implanted Type Area Fast Food Shift Lead Device Identifier Shelf Expiration Date Model / Serial / Lot Alloderm 6 X 16cm Implanted:Qty: 1 on 02/05/[place] [facility] Breast LIFE CELL MADDIE [id number] / [id number] / [id number] Description:Alloderm 6 x 16 cm to right breast [id number] - [id number] Implanted:Qty: 1 on 02/05/2007 [place] [facility]: Breast LIFE CELL MADDIE [id number] / [id number] / [id number] Description:ALLODERM TO left breast 6 x 16cm [place] Breast Implant Implanted:Qty: 1 on 02/05/2007 [place] [facility]: Breast MENTOR MADDIE 08/06/2010 350-1697 / [id number] / [id number] Description:700ml Breast Imp lant to Right Breast [place] Breast Implant Implanted:Qty: 1 on 02/05/2007 [place] [facility]: Breast MENTOR MADDIE 08/06/2010 350-1697 / [id number] / [id number] Description:[place] Breast Im plant to Left BreaST Graft Fascia Nevin 2x3 14660 - [id number] Implanted:Qty: 1 on 03/20/2010 at [facility] Right: Eye IOP INC 06/06/2014 68282 / / [id number] Breast Implant 350-2887 Saline - [id number] Implanted:Qty: 1 on 04/20/2011 at [place] [facility] Right: Breast MENTOR MADDIE 04/04/2015 350-1697 / [id number] / [id number] Description:[place] smooth ro und moderate profile saline. Envelope Antibacteral Tyrx - [id number] Implanted:Qty: 1 on 05/14/2024 by Zulema Giordano IV, MD at [facility] [employer] : CRM [id number] 01/30/2025 CMRM6 133 / / [id number] Defib [place] Mri Quad Store Clerk Cashier-D - [id number] Implanted:Qty: 1 on 05/14/2024 by Zulema Giordano IV, MD at [facility] [employer] [id number] 07/03/2025 [id number] / [id number] / [id number] S Ring Morcher Type 14a Mr-1410 - [id number] Implanted:Qty: 1 on 08/17/2024 by Frank Zuñiga MD at [facility] Right: Eye MORCHER [id number] 04/04/2026 MR-1410 / [id number] / [id number] Lens 17.5 [id number] - [id number] Implanted:Qty: 1 on 08/17/2024 by Frank Zuñiga MD at [facility] Right: Eye ANNABELLE : SURGICAL [id number] 03/15/2029 [id number] / [id number] / [id number] documented as of this encounter Procedures Procedure Name Priority Date/Time Associated Diagnosis Comments CARDIOLOGY SCANNED RESULT 10/25/2024 documented in this encounter Results * CARDIOLOGY SCANNED RESULT (10/25/2024) 10/25/2024 us Dilan Jamil DO OTHER Final Result documented in this [...] and were consensually agreed upon. Care Teams Dry Ice Maker Relationship Specialty Start Date End Date Rose Marie Galloway MD [address] [place] [address] [place] [address] PCP - General Family Medicine 05/24/14 documented as of this encounter
--- OUTSIDE RECORDS SUMMARY | 2024-11-25 03:26 | External Medical Summary | Summary of Care ---
Author Name Unknown Organization [facility] Address [address] [place] [address] Phone [phone] Care Team Providers Care Joint Cleaning Machine Operator Name Role Phone Rose Marie Galloway MD Primary Care Provide r Encounter Details Date Type Department Care Team (Late st Contact Info) Description 10/18/2024 2:15 PM EST Documentation Eyewear [facility] [address] [place] [address] [place], Eyewear [address] [place] [address] Disorder of refraction and accommodation* Allergies Active Allergy Reactions Criticality Noted Date [...] Overview (12/04/2020): 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, [place] II, 11/2020) Hypertensive heart and kidne y [...] 08/23/2014 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 intermediate manager current use of anticoagulant therapy 0 05/12/2006 [...] (Moderna) 02/12/2021,01/15/2021 Pneumococcal Conjugate Vacci ne, 20-valent (Ygnanop34) 11/21/2022 Pneumococcal Polysaccharide PPV23 (Pneumovax) 08/12/2006 Seasonal [...] Notes * Adilene Medina TECH - 10/18/2024 2:00 PM EST [place] Lab: [facility] Order Type: Complete Kayce Doherty [id number] [place] [id number] Text Order Date: 10/18/2024 Provider: titus Rx Date: 10/18/24 Dispenser: Adilene Johnson Reason: Patient Rx: Glasses Prescription (10/18/2024) Sphere Cylinder [place] Add Right +1.25 -6.50 165 +2.75 Left Balance Type: Bifocal Expiration Date: 10/18/2026 Lab Notes: Frame sent to [facility] for lenses. FT 28 Lenses Type/Style: Right: Flat Top 28 Left: Flat Top 28 Lens Material: Polycarbonate Photochrom: Edge: Coating: Tint: Right Left Dist PD: 31.5 Near PD: Dist PD: 31.5 Near PD: Seg Ht: 15 OC: Seg Ht: 15 OC: Frames- [facility] supplied Lead Bi Developer/Collection: Prodesign - Nifties Style: 9522 zyl Color: 6745 Eye Size: 47 - 18 - 140 B: 39 ED 50 documented in this encounter Plan of Treatment Upcoming Encounters Date Type Department Care Team (Late st Contact Info) Description 11/05/2024 11:30 AM EST Office Visit Optometry, [place] [address] [place] [address] Raudel Hernandez, OD 16 [place] [address] 11/30/2024 1:00 PM EST Nurse Only Ancillary [address] [place] [address] [place], Nurse [address] [place] [address] 11/30/2024 2:40 PM EST Office Visit Family Medicine [address] [place] [phone] Marcela Ramirez CRNP [address] [place] [address] [place] [address] 12/28/2024 12:30 PM EDT Office Visit Cardiology [address] [place] [address] Gareme Pang PA-C [address] [place] [address] 06/21/2025 1:40 PM EDT Office Visit Family Medicine [address] [place] [phone] Rose Marie Galloway MD [address] [place] [address] [place] [address] 10/21/2025 1:00 PM EST Office Visit Optometry, [place] [address] [place] [address] Raudel Hernandez, OD [address] [place] [address] Health Maintenance Due Date Last Done Comments [...] Additional history exists CKD HGB USE SMARTSET 43035 05/14/202505/14, 11/12/2023, 11/12/2023, Additional history exists CKD PHOS USE SMARTSET 25678 05/25/2025 08, 12/24/2022, 12/05/2021, Additional history exists [...] D LEVEL ONCE IN A LIFETIME-USE SMARTSET# 33530 Completed 05/25/2024, 06/04/2023, 11/05/2022, Additional history exists [...] this encounter Medical Devices Implanted Type Area Lead Bi Developer Device Identifier Shelf Expiration Date Model / Serial / Lot Alloderm 6 X 16cm Implanted:Qty: 1 on 02/05/2007 at [place] [facility] [place] Right: Breast LIFE CELL MADDIE [id number] / [id number] / [id number] Description:Alloderm 6 x 16 cm to right breast [id number] - [id number] Implanted:Qty: 1 on 02/05/2007 at [place] [facility] [place] Left: Breast LIFE CELL MADDIE [id number] / [id number] / [id number] Description:ALLODERM TO left breast 6 x 16cm Excello Breast Implant Implanted:Qty: 1 on 02/05/2007 at [place] [facility] [place] Right: Breast MENTOR MADDIE 08/06/2010 350-1697 / [id number] / [id number] Description:700ml Breast Imp lant to Right Breast Excello Breast Implant Implanted:Qty: 1 on 02/05/2007 at [place] [facility] [place] Left: Breast MENTOR MADDIE 08/06/2010 350-1697 / [id number] / [id number] Description:Excello Breast Im plant to Left BreaST Graft Fascia Nevni 2x3 02401 - [id number] Implanted:Qty: 1 on 03/20/2010 at [facility] Right: Eye IOP INC 06/06/2014 59860 / / [id number] Breast Implant 350-1697 Saline - [id number] Implanted:Qty: 1 on 04/20/2011 at [place] [facility] [place] Right: Breast MENTOR MADDIE 04/04/2015 350-1697 / [id number] / [id number] Description:Excell[place] smooth ro und moderate profile saline. Envelope Antibacteral Tyrx - [id number] Implanted:Qty: 1 on 05/14/2024 by Zulema Giordano IV, MD at [facility] [place] [employer] : CRM [id number] 01/30/2025 CMRM6 133 / / [id number] Defib [place] Mri Quad Psychologist Private Practice-D - [id number] Implanted:Qty: 1 on 05/14/2024 by Zulema Giordano IV, MD at [facility] [place] [employer] [id number] 07/03/2025 [id number] / [id number] / [id number] S Ring Morcher Type 14a Mr-1410 - [id number] Implanted:Qty: 1 on 08/17/2024 by Frank Zuñiga MD at [facility] Right: Eye MORCHER [id number] 04/04/2026 MR-1410 / [id number] / [id number] Lens 17.5 [id number] - [id number] Implanted:Qty: 1 on 08/17/2024 by Frank Zuñiga MD at [facility] Right: Eye ANNABELLE : SURGICAL [id number] 03/15/2029 [id number] / [id number] / [id number] documented as of this encounter Visit Diagnoses Diagnosis Disorder of refraction and accommodation- Primary Unspecified disorder of refraction and accommodation documented in this encounter Advance Directives * [...] and were consensually agreed upon. Care Teams Joint Cleaning Machine Operator Relationship Specialty Start Date End Date Rose Marie Galloway MD [address] [place] [address] [place] [address] PCP - General Family Medicine 05/24/14 documented as of this encounter
--- OUTSIDE RECORDS SUMMARY | 2024-11-25 03:26 | External Medical Summary | Summary of Care ---
Author Name Unknown Organization [facility] Address [address] [place] [address] Phone [phone] Care Team Providers Care Water Resource Specialist Name Role Phone Rose Marie Galloway MD Primary Care Provide r Encounter Details Date Type Department Care Team (Late st Contact Info) Description 10/18/2024 1:45 PM EST Documentation Eyewear [address] [address] [place], Eyewear [address] [place] [address] History of intraocular lens implant* Allergies Active [...] Overview (12/04/2020): 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, [place] II, 11/2020) Hypertensive heart and kidne y [...] 08/23/2014 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 representative current use of anticoagulant therapy 0 05/12/2006 [...] (Moderna) 02/12/2021,01/15/2021 Pneumococcal Conjugate Vacci ne, 20-valent ([id number]) 11/21/2022 Pneumococcal Polysaccharide PPV23 (Pneumovax) 08/12/2006 Seasonal [...] 11/05/2024 11:30 AM EST Office Visit Optometry, [address] [address] Raudel Hernandez, OD 16 [place] [address] 11/30/2024 1:00 PM EST Nurse Only Ancillary [address] [place] [address] [place], Nurse Annual Wellness [address] [place] [address] [place] [address] 11/30/2024 2:40 PM EST Office Visit Family Medicine [address] [place] [phone] Marcela Ramirez [address] [place] [address] 12/28/2024 12:30 PM EDT Office Visit Cardiology [address] [place] [address] Graeme Pang PA-C [address] [place] [address] 06/21/2025 1:40 PM EDT Office Visit Family Medicine [address] [place] [address] Rose Marie Galloway MD [address] [place] [address] [place] [address] 10/21/2025 1:00 PM EST Office Visit Optometry, [place] [address] [place] [address] Raudel Hernandez, OD 16 [place] [address] Health Maintenance Due Date Last Done Comments [...] Additional history exists CKD HGB USE SMARTSET 55057 05/14/202505/14, 11/12/2023, 11/12/2023, Additional history exists CKD PHOS USE SMARTSET 84609 05/25/202505/07, 12/24/2022, 12/05/2021, Additional history exists TSH [...] D LEVEL ONCE IN A LIFETIME-USE SMARTSET# 69710 Completed 05/25/2024, 06/04/2023, 11/05/2022, Additional history exists [...] this encounter Medical Devices Implanted Type Area Director Clinical Information Services Device Identifier Shelf Expiration Date Model / Serial / Lot Alloderm 6 X 16cm Implanted:Qty: 1 on 02/05/[address] [facility] [place] Right: Breast LIFE CELL MADDIE [id number] / [id number] / [id number] Description:Alloderm 6 x 16 cm to right breast [id number] - [id number] Implanted:Qty: 1 on 02/05/[address] [facility] [place] Left: Breast LIFE CELL MADDIE [id number] / [id number] / [id number] Description:ALLODERM TO left breast 6 x 16cm [place]im Breast Implant Implanted:Qty: 1 on 02/05/[address] [facility] [place] Right: Breast MENTOR MADDIE 08/06/2010 350-1697 / [id number] / [id number] Description:700ml Breast Imp lant to Right Breast [place]raim Breast Implant Implanted:Qty: 1 on 02/05/[address] [facility] [place] Left: Breast MENTOR MADDIE 08/06/2010 350-1697 / [id number] / [id number] Description:Ephraim Breast Im plant to Left BreaST Graft Fascia Nevin 2x3 42486 - [id number] Implanted:Qty: 1 on 03/20/2010 at [facility] Right: Eye IOP INC 06/06/2014 [id number] / / [id number] Breast Implant 350-1697 Saline - [id number] Implanted:Qty: 1 on 04/20/[address] [facility] [place] Right: Breast MENTOR MADDIE 04/04/2015 350-1697 / [id number] / [id number] Description:Ephraim smooth ro und moderate profile saline. Envelope Antibacteral Tyrx - [id number] Implanted:Qty: 1 on 05/14/2024 by Zulema Giordano IV, MD at CARDIAC LABS [facility] [place] [employer] : CRM [id number] 01/30/2025 [id number] 133 / / [id number] Defib [place] Mri Quad Warehouse Shipping Clerk-D - [id number] Implanted:Qty: 1 on 05/14/2024 by Zulema Giordano IV, MD at [facility]ARDIAC [facility]S [facility] [employer] [id number] 07/03/2025 [id number] / [id number] / [id number] S Ring Morcher Type 14a Mr-1410 - [id number] Implanted:Qty: 1 on 08/17/2024 by Frank Zuñiga MD at OR [facility] Right: Eye MORCHER [id number] 04/04/2026 MR-1410 / [id number] / [id number] Lens 17.5 [id number] - [id number] Implanted:Qty: 1 on 08/17/2024 by Frank Zuñiga MD at OR [facility] Right: Eye ANNABELLE : SURGICAL [id number] 03/15/2029 [id number] / [id number] / [id number] documented as of this encounter Visit [...] and were consensually agreed upon. Care Teams Water Resource Specialist Relationship Specialty Start Date End Date Rose Marie Galloway MD [address] [place] [address] [place] [address] PCP - General Family Medicine 05/24/14 documented as of this encounter
--- OUTSIDE RECORDS SUMMARY | 2024-11-25 03:26 | External Medical Summary | Summary of Care ---
Author Name Unknown Organization [facility] Address [address] [place] [address] Phone [phone] Care Team Providers Care Natural Science Curator Name Role Phone Rose Marie Galloway MD Primary Care Provide r Encounter Details Date Type Department Care Team (Late st Contact Info) Description 10/18/2024 1:45 PM EST Documentation Eyewear [address] [address] [place], Eyewear [address] [place] [address] History of intraocular lens implant* Allergies Active [...] Overview (12/04/2020): 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, [place] II, 11/2020) Hypertensive heart and kidne y [...] 08/23/2014 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 terminal carman current use of anticoagulant therapy 0 05/12/2006 [...] (Moderna) 02/12/2021,01/15/2021 Pneumococcal Conjugate Vacci ne, 20-valent (Flsprzm39) 11/21/2022 Pneumococcal Polysaccharide PPV23 (Pneumovax) 08/12/2006 Seasonal [...] 11/05/2024 11:30 AM EST Office Visit Optometry, [address] [address] Raudel Hernandez, OD 16 [place] [address] 11/30/2024 1:00 PM EST Nurse Only Ancillary [address] [place] [address] [place], Nurse Annual Wellness [address] [place] [address] [place] [address] 11/30/2024 2:40 PM EST Office Visit Family Medicine [address] [place] [phone] Marcela Ramirez [address] [place] [address] 12/28/2024 12:30 PM EDT Office Visit Cardiology [address] [place] [address] Graeme Pang PA-C [address] [place] [address] 06/21/2025 1:40 PM EDT Office Visit Family Medicine [address] [place] [address] Rose Marie Galloway MD [address] [place] [address] [place] [address] 10/21/2025 1:00 PM EST Office Visit Optometry, [place] 16 [place] [address] Raudel Hernandez, OD 16 [place] [address] Health Maintenance Due Date Last Done Comments [...] Additional history exists CKD HGB USE SMARTSET 56873 05/14/202505/14, 11/12/2023, 11/12/2023, Additional history exists CKD PHOS USE SMARTSET 82658 05/25/202505/07, 12/24/2022, 12/05/2021, Additional history exists TSH [...] D LEVEL ONCE IN A LIFETIME-USE SMARTSET# 99256 Completed 05/25/2024, 06/04/2023, 11/05/2022, Additional history exists [...] this encounter Medical Devices Implanted Type Area Plaster Caster Device Identifier Shelf Expiration Date Model / Serial / Lot Alloderm 6 X 16cm Implanted:Qty: 1 on 02/05/2007 at [place] [facility] [place] Right: Breast LIFE CELL MADDIE [id number] / [id number] / [id number] Description:Alloderm 6 x 16 cm to right breast [id number] - [id number] Implanted:Qty: 1 on 02/05/2007 at [place] [facility] [place] Left: Breast LIFE CELL MADDIE 191564 / [id number] / [id number] Description:ALLODERM TO left breast 6 x 16cm [place] Breast Implant Implanted:Qty: 1 on 02/05/2007 at [place] [facility] [place] Right: Breast MENTOR MADDIE 08/06/2010 350-1697 / [id number] / [id number] Description:700ml Breast Imp lant to Right Breast [place] Breast Implant Implanted:Qty: 1 on 02/05/2007 at [place] [facility] [place] Left: Breast MENTOR MADDIE 08/06/2010 350-1697 / [id number] / [id number] Description:[place] Breast Im plant to Left BreaST Graft Fascia Nevin 2x3 71807 - [id number] Implanted:Qty: 1 on 03/20/2010 at OR [facility] Right: Eye IOP INC 06/06/2014 69473 / / [id number] Breast Implant 350-1697 Saline - [id number] Implanted:Qty: 1 on 04/20/2011 at [place] [facility] [place] Right: Breast MENTOR MADDIE 04/04/2015 350-1697 / [id number] / [id number] Description:[place] smooth ro und moderate profile saline. Envelope Antibacteral Tyrx - [id number] Implanted:Qty: 1 on 05/14/2024 by Zulema Giordano IV, MD at [facility] [employer] : CRM [id number] 01/30/2025 CMRM6 133 / / [id number] Defib [place] Mri Quad [place] Pilot-D - [id number] Implanted:Qty: 1 on 05/14/2024 by Zulema Giordano IV, MD at [facility] [employer] [id number] 07/03/2025 [id number] / [id number] / [id number] S Ring Morcher Type 14a Mr-1410 - [id number] Implanted:Qty: 1 on 08/17/2024 by Frank Zuñiga MD at OR [facility] Right: Eye MORCHER [id number] 04/04/2026 MR-1410 / [id number] / [id number] Lens 17.5 [id number] - [id number] Implanted:Qty: 1 on 08/17/2024 by Frank Zuñiga MD at OR [facility] Right: Eye ANNABELLE : SURGICAL [id number] 03/15/2029 [id number] / [id number] / [id number] documented as of this encounter Visit [...] and were consensually agreed upon. Care Teams Natural Science Curator Relationship Specialty Start Date End Date Rose Marie Galloway MD [address] [place] [address] [place] [address] PCP - General Family Medicine 05/24/14 documented as of this encounter
--- OUTSIDE RECORDS SUMMARY | 2024-11-25 03:26 | External Medical Summary | Summary of Care ---
Author Name Unknown Organization [facility] Address [address] [place] [address] Phone [phone] Care Team Providers Care Legal Internship Name Role Phone Rose Marie Galloway MD Primary Care Provide r Encounter Details Date Type Department Care Team (Late st Contact Info) Description 10/18/2024 1:45 PM EST Documentation Eyewear [address] [address] [place], Eyewear [address] [place] [address] History of intraocular lens implant* Allergies Active [...] Overview (12/04/2020): 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, [place] II, 11/2020) Hypertensive heart and kidne y [...] 08/23/2014 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 current use of anticoagulant therapy 0 05/12/2006 [...] (Moderna) 02/12/2021,01/15/2021 Pneumococcal Conjugate Vacci ne, 20-valent (Mshyzan31) 11/21/2022 Pneumococcal Polysaccharide PPV23 (Pneumovax) 08/12/2006 Seasonal [...] 11:30 AM EST Office Visit Optometry, [address] [address] Raudel Hernandez, OD 16 [place] [address] 11/30/2024 1:00 PM EST Nurse Only Ancillary [address] [place] [address] [place], Nurse Annual Wellness [address] [place] [address] [place] [address] 11/30/2024 2:40 PM EST Office Visit Family Medicine [address] [place] [phone] Marcela Ramirez [address] [place] [address] 12/28/2024 12:30 PM EDT Office Visit Cardiology [address] [place] [address] Graeme Pang PA-C [address] [place] [address] 06/21/2025 1:40 PM EDT Office Visit Family Medicine [address] [place] [address] Rose Marie Galloway MD [address] [place] [address] [place] [address] 10/21/2025 1:00 PM EST Office Visit Optometry, [place] 16 [place] [address] Raudel Hernandez, OD 16 [place] [address] Health Maintenance Due Date Last Done Comments [...] Additional history exists CKD HGB USE SMARTSET 36200 05/14/202505/14, 11/12/2023, 11/12/2023, Additional history exists CKD PHOS USE SMARTSET 67498 05/25/202505/07, 12/24/2022, 12/05/2021, Additional history exists TSH [...] D LEVEL ONCE IN A LIFETIME-USE SMARTSET# 42523 Completed 05/25/2024, 06/04/2023, 11/05/2022, Additional history exists [...] this encounter Medical Devices Implanted Type Area Informatics Coordinator Device Identifier Shelf Expiration Date Model / Serial / Lot Alloderm 6 X 16cm Implanted:Qty: 1 on 02/05/2007 at OR [facility] [place] Right: Breast LIFE CELL MADDIE [id number] / [id number] / [id number] Description:Alloderm 6 x 16 cm to right breast [id number] - [id number] Implanted:Qty: 1 on 02/05/2007 at OR [facility] [place] [place] Left: Breast LIFE CELL MADDIE 860105 / [id number] / [id number] Description:ALLODERM TO left breast 6 x 16cm Swan Breast Implant Implanted:Qty: 1 on 02/05/2007 at OR [facility] Right: Breast MENTOR MADDIE 08/06/2010 350-1697 / [id number] / [id number] Description:700ml Breast Imp lant to Right Breast Swan Breast Implant Implanted:Qty: 1 on 02/05/2007 at OR [facility] [place] [place] Left: Breast MENTOR MADDIE 08/06/2010 350-1697 / [id number] / [id number] Description:[place]wan Breast Im plant to Left BreaST Graft Fascia Nevin 2x3 963[address] - [id number] Implanted:Qty: 1 on 03/20/2010 at OR [facility] Right: Eye IOP INC 06/06/2014 08282 / / [id number] Breast Implant 350-1697 Saline - [id number] Implanted:Qty: 1 on 04/20/2011 at OR [facility] [place] [place] Right: Breast MENTOR MADDIE 04/04/2015 350-1697 / [id number] / [id number] Description:[place]wan smooth ro und moderate profile saline. Envelope Antibacteral Tyrx - [id number] Implanted:Qty: 1 on 05/14/2024 by Zulema Giordano IV, MD at [facility] [place] [employer] : CRM [id number] 01/30/2025 CMRM6 133 / / [id number] Defib [place] Mri Quad Display Screen Fabricator-D - [id number] Implanted:Qty: 1 on 05/14/2024 by Zulema Giordano IV, MD at [facility] [employer] [id number] 07/03/2025 [id number] / [id number] S / [id number] S Ring Morcher Type 14a Mr-1410 - [id number] Implanted:Qty: 1 on 08/17/2024 by Frank Zuñiga MD at OR [facility] Right: Eye MORCHER [id number] 04/04/2026 MR-1410 / [id number] / [id number] Lens 17.5 [id number] - [id number] Implanted:Qty: 1 on 08/17/2024 by Frank Zuñiga MD at OR [facility] Right: Eye ANNABELLE : SURGICAL [id number] 03/15/2029 [id number] / [id number] / [id number] documented as of this encounter Visit [...] and were consensually agreed upon. Care Teams Legal Internship Relationship Specialty Start Date End Date Rose Marie Galloway MD [address] [place] [address] [place] [address] PCP - General Family Medicine 05/24/14 documented as of this encounter
--- OUTSIDE RECORDS SUMMARY | 2024-11-25 03:27 | External Medical Summary ---
Author Name Unknown Address Unknown Organization K01:[facility] [place] - [address] [place] [address] Laboratory Report Ordering Provider Test Date Status KEI MOORE 09/20/2024 10:19:48 Final Observation Date Value Abnormality Reference (Units ) Status Parathyrin.intact [Mass/volume] in Serum or Plasma 09/20/2024 10:19:48 79 Above high normal 15-65 (pg/mL) Final Performing Location [facility] [place] - [address] [place] [address]
--- OUTSIDE RECORDS SUMMARY | 2024-11-25 03:27 | External Medical Summary | Summary of Care ---
Author Name Unknown Organization [facility] Address [address] [place] [address] Phone [phone] Care Team Providers Care Senior Quality Engineer Name Role Phone Rose Marie Galloway MD Primary Care Provide r Encounter Details Date Type Department Care Team (Late st Contact Info) Description 10/18/2024 2:15 PM EST Documentation Eye[address] [address] [place], [place] [address] [place] [address] Arrived Allergies Active Allergy Reactions Criticality Noted Date Comments Docetaxel 02/14/2011 Chest pain, passed out , could not talk, saw silver round bubbles documented as of this encounter (statuses as of 10/18/2024) Medications OXYCODONE HCL 10 MG PO TABSIndications:pa [...] as of this encounter (statuses as of 10/18/2024) Active Problems Problem Noted Date Diagnosed Date NICM (nonischemic cardiomyopathy) 04/19/2024 ICD (implantable cardioverter-defibrillator) in place 04/19/2024 Chronic kidney disease, stage 3b 11/18/2022 Overview: Per CKD protocol Osteoporosis, postmenopausal 11/05/2022 Permanent atrial fibrillation 11/05/2022 Peripheral vascular disease 10/23/2021 Hx of melanoma of skin 12/04/2020 Overview (12/04/2020): 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, [place] II, 11/2020) Hypertensive heart and kidne y [...] 08/23/2014 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 detention current use of anticoagulant therapy 0 05/12/2006 Overview (07/07/2017): ICD-10 update of inactive term History of breast cancer 03/28/2006 Family history of other cardiovascular diseases 05/14/2005 Overview (12/28/2015): ICD-10 update of inactive term FAMILY HX-BREAST MALIG 05/14/2005 HTN, goal below 140/90 06/26/2001 Blindness of left eye documented as of this encounter (statuses as of 10/18/2024) Resolved Problems Problem Noted Date Diagnosed Date [...] as of this encounter (statuses as of 10/18/2024) Immunizations Name Administration Dates Next Due COVID-19 mRNA, LNP-s, No Pre serve, 2-Dose Series (Moderna) 02/12/2021,01/15/2021 Pneumococcal Conjugate Vacci ne, 20-valent (Mofnodp76) 11/21/2022 Pneumococcal Polysaccharide PPV23 (Pneumovax) 08/12/2006 Seasonal [...] - 10/18/2024 2:00 PM EST [place] Lab: [facility] Order Type: Complete Kayce Doherty [id number] [place] [id number] Text Order Date: 10/18/2024 Provider: titus Rx Date: 10/18/24 Dispenser: Adilene James Redo Reason: Patient Rx: Glasses Prescription (10/18/2024) Sphere Cylinder Independence Add Right +1.25 -6.50 165 +2.75 Left Balance Type: Bifocal Expiration Date: 10/18/2026 Lab Notes: Frame sent to [facility] for lenses. FT 28 Lenses Type/Style: Right: Flat Top 28 Left: Flat Top 28 Lens Material: Polycarbonate Photochrom: Edge: Coating: Tint: Right Left Dist PD: 31.5 Near PD: Dist PD: 31.5 Near PD: Seg Ht: 15 OC: Seg Ht: 15 OC: [facility] [place] supplied Manager Secondary/Collection: Prodesign - Nifties Style: 9522 zyl Color: 6745 Eye Size: 47 - 18 - 140 B: 39 ED 50 documented in this encounter Plan of Treatment Upcoming Encounters Date Type Department Care Team (Late st Contact Info) Description 10/18/2024 2:30 PM EST Documentation Eyewear [address] [address] [facility] [address] [place] [address] Arrived 11/05/2024 11:30 AM EST Office Visit Optometry, [address] [address] Raudel Hernandez, OD [address] [place] [address] 11/30/2024 1:00 PM EST Nurse Only Ancillary [address] [place] [address] [place], Nurse [address] [place] [address] 11/30/2024 2:40 PM EST Office Visit Family Medicine [address] [place] [phone] Marcela Ramirez CRNP [address] [place] [address] [place] [address] 12/28/2024 12:30 PM EDT Office Visit Cardiology [address] [place] [address] Graeme Pang PA-C [address] [place] [address] 12/29/2024 1:20 PM EDT Office Visit Dermatology [address] [place] [address] Mami Rodriguez PA-C [address] [place] [address] [place] [address] 06/21/2025 1:40 PM EDT Office Visit Family Medicine [address] [place] [address] Rose Marie Galloway MD [address] [place] [address] [place] [address] 10/21/2025 1:00 PM EST Office Visit Optometry, [place] 16 [place] [address] Raudel Hernandez, OD 16 [place] [address] Health Maintenance Due Date Last Done Comments Sigmoidoscopy 2002 Zoster Vaccines (1 of 2) 2007 Fecal Occult Blood Test 03/07/2011 03/07/20, 12/10/2001, 10/01/2000 Colonoscopy 12/28/2017 12/29/2007 *BISPHONATE OR OTHER ACCEPTABLE MEDICATION NEEDED FOR OSTEOPOROSIS (REFER TO SMARTSET #1146) 11/23/2022 Albumin/Creatinine Ratio 08/16/2023 08/16/2022 COVID-19 Vaccine ( season) 2024 02/12/2021, 01/15/2021 Influenza Vaccine (FLU shot) (#1) 2024 10/13/2008, 07/13/2007, 08/12/2006, Additional history exists DXA Scan 11/04/2024 11/04/2022, 11/04/2022 Adult Wellness Visit 11/27/2024 11/27/2023, 11/26/19 23 Depression Screening 11/27/2024 11/27/2023 GFR 03/21/2025 09/20/2024, 05/07, 05/14/2024, Additional history exists CKD HGB USE SMARTSET 03144 05/14/202505/14, 11/12/2023, 11/12/2023, Additional history exists CKD PHOS USE SMARTSET 72897 05/25/202505/07, 12/24/2022, 12/05/2021, Additional history exists TSH [...] D LEVEL ONCE IN A LIFETIME-USE SMARTSET# 39420 Completed 05/25/2024, 06/04/2023, 11/05/2022, Additional history exists [...] this encounter Medical Devices Implanted Type Area Manager Secondary Device Identifier Shelf Expiration Date Model / Serial / Lot Alloderm 6 X 16cm Implanted:Qty: 1 on 02/05/2007 [place] [facility] [place]: Breast LIFE CELL MADDIE [id number] / [id number] / [id number] Description:Alloderm 6 x 16 cm to right breast [id number] - [id number] Implanted:Qty: 1 on 02/05/2007 at [place] [facility] [place] Left: Breast LIFE CELL MADDIE 496070 / [id number] / [id number] Description:ALLODERM TO left breast 6 x 16cm [place] Breast Implant Implanted:Qty: 1 on 02/05/2007 at [place] [facility] [place] Right: Breast MENTOR MADDIE 08/06/2010 350-1697 / [id number] / [id number] Description:700ml Breast Imp lant to Right Breast [place] Breast Implant Implanted:Qty: 1 on 02/05/2007 at [place] [facility] [place] Left: Breast MENTOR MADDIE 08/06/2010 350-1697 / [id number] / [id number] Description:Turner Breast Im plant to Left BreaST Graft Fascia Nevin 2x3 64288 - [id number] Implanted:Qty: 1 on 03/20/2010 at [facility] Right: Eye IOP INC 06/06/2014 13142 / / [id number] Breast Implant 350-1697 Saline - [id number] Implanted:Qty: 1 on 04/20/2011 at [place] [facility] [place] Right: Breast MENTOR MADDIE 04/04/2015 350-1697 / [id number] / [id number] Description:[place]er smooth ro und moderate profile saline. Envelope Antibacteral Tyrx - [id number] Implanted:Qty: 1 on 05/14/2024 by Zulema Giordano IV, MD at [facility] [place] [employer] : CRM [id number] 01/30/2025 CMRM6 133 / / [id number] Defib [place] Mri Quad Prop Maker-D - [id number] Implanted:Qty: 1 on 05/14/2024 by Zulema Giordano IV, MD at [facility] [place] [employer] [id number] 07/03/2025 [id number] / [id number] / [id number] S Ring Morcher Type 14a Mr-1410 - [id number] Implanted:Qty: 1 on 08/17/2024 by Frank Zuñiga MD at [facility] Right: Eye MORCHER [id number] 04/04/2026 MR-1410 / [id number] / [id number] Lens 17.5 [id number] - [id number] Implanted:Qty: 1 on 08/17/2024 by Frank Zuñiga MD at [facility] Right: Eye ANNABELLE : SURGICAL [id number] 03/15/2029 [id number] / [id number] / [id number] documented as of this encounter Advance [...] and were consensually agreed upon. Care Teams Senior Quality Engineer Relationship Specialty Start Date End Date Rose Marie Galloway MD [address] [place] [address] [place] [address] PCP - General Family Medicine 05/24/14 documented as of this encounter
--- OUTSIDE RECORDS SUMMARY | 2024-11-25 03:27 | External Medical Summary ---
Author Name Unknown Address Unknown Organization K01:LABORATORY [facility] - [address] [facility] [address] Laboratory Report Ordering Provider Test Date Status KEI MOORE 09/20/2024 10:19:48 Final Observation Date Value Abnormality Reference (Units ) Status BUN 09/20/2024 10:19:48 31 Above high normal 6-20 (mg/dL) Final Creatinine 09/20/2024 10:19:48 1.4 Above high normal 0.5-1.0 (mg/dL) Final Glomerular filtration rate/1.73 sq M.predicted [Volume Rate/Area] in Serum, Plasma or Blood by Creatinine-based formula (CKD-EPI) 09/20/2024 10:19:48 42 Below low normal >=60 (mL/min) Final eGFR is calculated based on the CKD-EPI 2020 equation. Sodium 09/20/2024 10:19:48 144 135-146 (m mol/L) Final Potassium 09/20/2024 10:19:48 4.5 3.5-5.1 (m mol/L) Final Cl 09/20/2024 10:19:48 105 98-107 (mm ol/L) Final CO2 09/20/2024 10:19:48 26 22-32 (mmo l/L) Final Anion gap 09/20/2024 10:19:48 13 7-15 (mmol /L) Final Glucose 09/20/2024 10:19:48 88 70-120 (mg /dL) Final Calcium 09/20/2024 10:19:48 10.2 8.4-10.2 ( mg/dL) Final Performing Location LABORATORY [facility] - [address] [place] [address]
--- OUTSIDE RECORDS SUMMARY | 2024-11-25 03:27 | External Medical Summary | Summary of Care ---
Author Name Unknown Organization [facility] Address [address] [place] [address] Phone [phone] Care Team Providers Care Chaperone Name Role Phone Rose Marie Galloway MD Primary Care Provide r Encounter Details Date Type Department Care Team (Late st Contact Info) Description 10/18/2024 2:15 PM EST Documentation Eye[address] [address] [place] [address] [place] [id number] Allergies Active Allergy Reactions Criticality Noted Date Comments Docetaxel 02/14/2011 Chest pain, passed out , could not talk, saw silver round bubbles documented as of this encounter (statuses as of 10/19/2024) Medications OXYCODONE HCL 10 MG PO TABSIndications:pa [...] as of this encounter (statuses as of 10/19/2024) Active Problems Problem Noted Date Diagnosed Date NICM (nonischemic cardiomyopathy) 04/19/2024 ICD (implantable cardioverter-defibrillator) in place 04/19/2024 Chronic kidney disease, stage 3b 11/18/2022 Overview: Per CKD protocol Osteoporosis, postmenopausal 11/05/2022 Permanent atrial fibrillation 11/05/2022 Peripheral vascular disease 10/23/2021 Hx of melanoma of skin 12/04/2020 Overview (12/04/2020): 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, [place] II, 11/2020) Hypertensive heart and kidne y [...] 08/23/2014 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 language assistant current use of anticoagulant therapy 0 05/12/2006 Overview (07/07/2017): ICD-10 update of inactive term History of breast cancer 03/28/2006 Family history of other cardiovascular diseases 05/14/2005 Overview (12/28/2015): ICD-10 update of inactive term FAMILY HX-BREAST MALIG 05/14/2005 HTN, goal below 140/90 06/26/2001 Blindness of left eye documented as of this encounter (statuses as of 10/19/2024) Resolved Problems Problem Noted Date Diagnosed Date [...] as of this encounter (statuses as of 10/19/2024) Immunizations Name Administration Dates Next Due COVID-19 mRNA, LNP-s, No Pre serve, 2-Dose Series (Moderna) 02/12/2021,01/15/2021 Pneumococcal Conjugate Vacci ne, 20-valent (Iwucacy43) 11/21/2022 Pneumococcal Polysaccharide PPV23 (Pneumovax) 08/12/2006 Seasonal [...] 11/27/2023 Does the household have a re lar [...] - 10/18/2024 2:00 PM EST Carmencita Lab: [facility] Order Type: Complete Kayce Doherty 1955 [id number] [place] [phone] Text Order Date: 10/18/2024 Provider: titus Rx Date: 10/18/24 Dispenser: Adilene James Redo Reason: Patient Rx: Glasses Prescription (10/18/2024) Sphere Cylinder [place] Add Right +1.25 -6.50 165 +2.75 Left Balance Type: Bifocal Expiration Date: 10/18/2026 Lab Notes: Frame sent to [facility] for lenses. FT 28 Lenses Type/Style: Right: Flat Top 28 Left: Flat Top 28 Lens Material: Polycarbonate Photochrom: Edge: Coating: Tint: Right Left Dist PD: 31.5 Near PD: Dist PD: 31.5 Near PD: Seg Ht: 15 OC: Seg Ht: 15 OC[facility] Clay Dry Press Operator/Collection: Prodesign - Nifties Style: 9522 zyl Color: 6745 Eye Size: 47 - 18 - 140 B: 39 ED 50 documented in this encounter Plan of Treatment Upcoming Encounters Date Type Department Care Team (Late st Contact Info) Description 11/05/2024 11:30 AM EST Office Visit Optometry, [place] [address] [place] [address] Raudel Hernandez, OD [address] [place] [address] 11/30/2024 1:00 PM EST Nurse Only Ancillary [address] [place] [address] [place], Nurse [address] [place] [address] 11/30/2024 2:40 PM EST Office Visit Family Medicine [address] [place] [phone] Marcela Ramirez [address] [place] [address] 12/28/2024 12:30 PM EDT Office Visit Cardiology [address] [place] [address] Graeme Pang PA-C [address] [facility] [place] [address] 12/29/2024 1:20 PM EDT Office Visit Dermatology [address] [place] [address] Mami Rodriguez PA-C [address] [place] [address] [place] [address] 06/21/2025 1:40 PM EDT Office Visit Family [address] [place] [phone] Rose Marie Galloway MD [address] [place] [address] [place] [address] 10/21/2025 1:00 PM EST Office Visit Optometry, [place] [address] [place] [address] Raudel Hernandez, OD [address] [place] [address] Health Maintenance Due Date Last Done Comments [...] Additional history exists CKD HGB USE SMARTSET 94256 05/14/202505/14, 11/12/2023, 11/12/2023, Additional history exists CKD PHOS USE SMARTSET 05761 05/25/2025 08, 12/24/2022, 12/05/2021, Additional history exists [...] D LEVEL ONCE IN A LIFETIME-USE SMARTSET# 63071 Completed 05/25/2024, 06/04/2023, 11/05/2022, Additional history exists [...] this encounter Medical Devices Implanted Type Area Clay Dry Press Operator Device Identifier Shelf Expiration Date Model / Serial / Lot Alloderm 6 X 16cm Implanted:Qty: 1 on [place] [facility] [place] Breast LIFE CELL MADDIE [id number] / [id number] / [id number] Description:Alloderm 6 x 16 cm to right breast [id number] - [id number] Implanted:Qty: 1 on 02/05/2007 [place] [facility] [place]: Breast LIFE CELL MADDIE [id number] / [id number] / [id number] Description:ALLODERM TO left breast 6 x 16cm [place]ony Breast Implant Implanted:Qty: 1 on 02/05/2007 [place] [facility] [place]: Breast MENTOR MADDIE 08/06/2010 350-1697 / [id number] / [id number] Description:700ml Breast Imp lant to Right Breast Harmony Breast Implant Implanted:Qty: 1 on 02/05/2007 [place] [facility] [place]: Breast MENTOR MADDIE 08/06/2010 350-1697 / [id number] / [id number] Description:Harmony Breast Im plant to Left BreaST Graft Fascia Nevin 2x3 78131 - [id number] Implanted:Qty: 1 on 03/20/2010 at [facility] Right: Eye [employer] 06/06/2014 06612 / / [id number] Breast Implant 350-1697 Saline - [id number] Implanted:Qty: 1 on 04/20/2011 [place] [facility] [place]: Breast MENTOR MADDIE 04/04/2015 350-1697 / [id number] / [id number] Description:[place]armony smooth ro und moderate profile saline. Envelope Antibacteral Tyrx - [id number] Implanted:Qty: 1 on 05/14/2024 by Zulema Giordano IV, MD at [facility] [employer] : CRM [id number] 01/30/2025 [id number] / / [id number] Defib [place] Mri Quad Chief Investigator-D - [id number] Implanted:Qty: 1 on 05/14/2024 by Zulema Giordano IV, MD at [facility] [employer] [id number] 07/03/2025 [id number] / [id number] / [id number] S Ring Morcher Type 14a Mr-1410 - [id number] Implanted:Qty: 1 on 08/17/2024 by Frank Zuñiga MD at OR [facility] Right: Eye MORCHER [id number] 04/04/2026 MR-1410 / [id number] / [id number] Lens 17.5 [id number] - [id number] Implanted:Qty: 1 on 08/17/2024 by Frank Zuñiga MD at OR [facility] Right: Eye ANNABELLE : SURGICAL [id number] 03/15/2029 [id number] / [id number] / [id number] documented as of this encounter Advance [...] and were consensually agreed upon. Care Teams Chaperone Relationship Specialty Start Date End Date Rose Marie Galloway MD [address] [place] [address] [place] [address] PCP - General Family Medicine 05/24/14 documented as of this encounter
--- OUTSIDE RECORDS SUMMARY | 2024-11-25 03:27 | External Medical Summary | Summary of Care ---
Author Name Unknown Organization [facility] Address [address] [place] [address] Phone [phone] Care Team Providers Care Tannery Gummer Name Role Phone Rose Marie Galloway MD Primary Care Provide r Encounter Details Date Type Department Care Team (Late st Contact Info) Description 10/18/2024 2:15 PM EST Documentation Eyewear [facility] [address] [place] [address] [place], Eyewear [address] [place] [phone] Disorder of refraction and accommodation* Allergies Active [...] Overview (12/04/2020): 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, [place] II, 11/2020) Hypertensive heart and kidne y [...] 08/23/2014 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 senior living current use of anticoagulant therapy 0 05/12/2006 [...] (Moderna) 02/12/2021,01/15/2021 Pneumococcal Conjugate Vacci ne, 20-valent (Rmrabsj70) 11/21/2022 Pneumococcal Polysaccharide PPV23 (Pneumovax) 08/12/2006 Seasonal [...] - 10/18/2024 2:00 PM EST Carmencita Lab: [facility] Eyewear [facility] Order Type: Complete Kayce Doherty 1955 [id number] [place] [phone] Text Order Date: 10/18/2024 Provider: titus Rx Date: 10/18/24 Dispenser: Adilene James Redo Reason: Patient Rx: Glasses Prescription (10/18/2024) Sphere Cylinder [place] Add Right +1.25 -6.50 165 +2.75 Left Balance Type: Bifocal Expiration Date: 10/18/2026 Lab Notes: Frame sent to [facility] for lenses. FT 28 Lenses Type/Style: Right: Flat Top 28 Left: Flat Top 28 Lens Material: Polycarbonate Photochrom: Edge: Coating: Tint: Right Left Dist PD: 31.5 Near PD: Dist PD: 31.5 Near PD: Seg Ht: 15 OC: Seg Ht: 15 OC: Frames- [employer] supplied Manufacturing Process Technician/Collection: Prodesign - Nifties Style: 9522 zyl Color: 6745 Eye Size: 47 - 18 - 140 B: 39 ED 50 documented in this encounter Plan of Treatment Upcoming Encounters Date Type Department Care Team (Late st Contact Info) Description 11/05/2024 11:30 AM EST Office Visit Optometry, [place] [address] [place] [address] Raudel Hernandez, OD [address] [place] [address] 11/30/2024 1:00 PM EST Nurse Only Ancillary [address] [place] [address] [place], Nurse Annual [address] [place] [address] 11/30/2024 2:40 PM EST Office Visit Family Medicine [address] [place] [phone] Marcela Ramirez CRNP [address] [place] [address] [place] [address] 12/28/2024 12:30 PM EDT Office Visit Cardiology [address] [place] [address] Graeme Pang PA-C [address] [facility] [place] [address] 12/29/2024 1:20 PM EDT Office Visit Dermatology [address] [place] [address] Mami Rodriguez PA-C [address] [place] [address] [place] [address] 06/21/2025 1:40 PM EDT Office Visit Family Medicine [address] [place] [phone] Rose Marie Galloway MD [address] [place] [address] [place] [address] 10/21/2025 1:00 PM EST Office Visit Optometry, [place] [address] [place] [address] Raudel Hernandez, MEHNAZ [address] [place] [address] Health Maintenance Due Date Last Done Comments [...] Additional history exists CKD HGB USE SMARTSET 92158 05/14/202505/14, 11/12/2023, 11/12/2023, Additional history exists CKD PHOS USE SMARTSET 15294 05/25/2025 08, 12/24/2022, 12/05/2021, Additional history exists TSH 05/25/2025 05/25/2024, 04/2024, 09/25/2023, Additional history exists Cologuard 08/21/2025 08/21/2022, 05/2022, 08/13/2022, Additional history exists Colorectal Cancer Screening 08/21/2025 Diabetes Screening 09/20/2027 09/20/2024, 1 10/17/2023, 05/25/2024, Additional history exists DTap/Tdap Vaccines (3 - Td or Tdap) 09/01/2028 09/01/2018, 03/14/2008 Lipid Panel 11/12/2028 11/12/2023, 03/10/2022, 01/24/2022, Additional history exists Pap Smear Discontinued 03/26/2022, 03/06, 11/27/2015, Additional history exists Pneumococcal Vaccine: 50+ Years Completed 11/21/2022, 08/12/2006 VITAMIN D LEVEL ONCE IN A LIFETIME-USE SMARTSET# 54722 Completed 05/25/2024, 06/04/2023, 11/05/2022, Additional history exists [...] this encounter Medical Devices Implanted Type Area Manufacturing Process Technician Device Identifier Shelf Expiration Date Model / Serial / Lot Alloderm 6 X 16cm Implanted:Qty: 1 on 02/05/2007 [place] [facility] [place]: Breast LIFE CELL MADDIE [id number] / [id number] / [id number] Description:Alloderm 6 x 16 cm to right breast [id number] - [id number] Implanted:Qty: 1 on 02/05/2007 [place] [facility] [place] Left: Breast LIFE CELL MADDIE [id number] / [id number] / [id number] Description:ALLODERM TO left breast 6 x 16cm [place] Breast Implant Implanted:Qty: 1 on 02/05/2007 [place] [facility] [place] Right: Breast MENTOR MADDIE 08/06/2010 350-1697 / [id number] / [id number] Description:700ml Breast Imp lant to Right Breast [place] Breast Implant Implanted:Qty: 1 on 02/05/2007 [place] [facility] [place] Left: Breast MENTOR MADDIE 08/06/2010 350-1697 / [id number] / [id number] Description:[place] Breast Im plant to Left BreaST Graft Fascia Nevin 2x3 24418 - [id number] Implanted:Qty: 1 on 03/20/2010 at OR [facility] Right: Eye IOP INC 06/06/2014 25362 / / [id number] Breast Implant 350-1697 Saline - [id number] Implanted:Qty: 1 on 04/20/2011 [place] [facility] [place] Right: Breast MENTOR MADDIE 04/04/2015 350-1697 / [id number] / [id number] Description:[place] smooth ro und moderate profile saline. Envelope Antibacteral Tyrx - [id number] Implanted:Qty: 1 on 05/14/2024 by Zulema Giordano IV, MD at [facility] [place] [employer] : CRM [id number] 01/30/2025 CMRM6 133 / / [id number] Defib [place] Mri Quad Rn International-D - [id number] Implanted:Qty: 1 on 05/14/2024 by Zulema Giordano IV, MD at [facility] [place] [employer] [id number] 07/03/2025 [id number] / [id number] / [id number] S Ring Morcher Type 14a Mr-1410 - [id number] Implanted:Qty: 1 on 08/17/2024 by Frank Zuñiga MD at OR [facility] Right: Eye MORCHER [id number] 04/04/2026 MR-1410 / [id number] / [id number] Lens 17.5 [id number] - [id number] Implanted:Qty: 1 on 08/17/2024 by Frank Zuñiga MD at OR [facility] Right: Eye ANNABELLE : SURGICAL [id number] 03/15/2029 [id number] / [id number] / [id number] documented as of this encounter Visit [...] and were consensually agreed upon. Care Teams Tannery Gummer Relationship Specialty Start Date End Date Rose Marie Galloway MD [address] [place] [address] [place] [address] PCP - General Family Medicine 05/24/14 documented as of this encounter
--- OUTSIDE RECORDS SUMMARY | 2024-11-25 03:27 | External Medical Summary | Summary of Care ---
Author Name Unknown Organization [facility] Address [address] [place] [address] Phone [phone] Care Team Providers Care Air And Missile Defense Crewmember Name Role Phone Rose Marie Galloway MD Primary Care Provide r Reason for Visit * Reason Onset Date Comments Medication Refill 09/07/2024 Encounter Details Date Type Department Care Team (Late st Contact Info) Description 09/07/2024 [place] [address] Dirk Silva CRNP [address] [place] [address] Allergies Active Allergy Reactions Criticality Noted Date Comments Docetaxel 02/14/2011 Chest pain, passed out , could not talk, saw silver round bubbles documented as of this encounter (statuses as of 09/08/2024) Medications OXYCODONE HCL 10 MG PO TABSIndications:pa [...] Drop before bedtime. 3 mL 08/23/20 24 Active prednisoLONE Acetate 1 % Ophthalmic Suspension (Pred Forte) Instill 1 Drop into the right eye in the morning and 1 Drop at noon and 1 Drop in the evening and 1 Drop before bedtime. To begin after eye surgery. 10 mL 09/08/20 24 Active prednisoLONE Acetate 1 % Ophthalmic Suspension (Pred Forte) Instill 1 Drop into the right eye in the morning and 1 Drop at noon and 1 Drop in the evening and 1 Drop before bedtime. To begin after eye surgery. 10 mL 07/23/20 024 Discontin ued(Refil l) documented as of this encounter (statuses as of 09/08/2024) Active Problems Problem Noted Date Diagnosed Date NICM (nonischemic cardiomyopathy) 04/19/2024 ICD (implantable cardioverter-defibrillator) in place 04/19/2024 Chronic kidney disease, stage 3b 11/18/2022 Overview: Per CKD protocol Osteoporosis, postmenopausal 11/05/2022 Permanent atrial fibrillation 11/05/2022 Peripheral vascular disease 10/23/2021 Hx of melanoma of skin 12/04/2020 Overview (12/04/2020): 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, [place] II, 11/2020) Hypertensive heart and kidne y [...] 08/23/2014 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 Wdjxrvj-Zlqsc-Ndyoi disease 12/24/2010 Systolic heart failure, chronic 08/03/2009 [...] as of this encounter (statuses as of 09/08/2024) Resolved Problems Problem Noted Date Diagnosed Date [...] as of this encounter (statuses as of 09/08/2024) Immunizations Name Administration Dates Next Due COVID-19 mRNA, LNP-s, No Pre serve, 2-Dose Series (Moderna) 02/12/2021,01/15/2021 Pneumococcal Conjugate Vacci ne, 20-valent (Ymmdeet70) 11/21/2022 Pneumococcal Polysaccharide PPV23 (Pneumovax) 08/12/2006 Seasonal [...] encounter Miscellaneous Notes * Telephone Encounter - Dirk Silva CRNP - 09/08/2024 5:05 PM EST Signed Prescriptions: Disp Refills prednisoLONE Acetate 1 % Ophthalmic Suspen*10 mL 0 Sig: Instill 1 Drop into the right eye in the morning and 1 Drop at noon and 1 Drop in the evening and 1 Drop before bedtime. To begin after eye surgery.Authorizing Provider: DIRK SILVA * Telephone Encounter - An Mazariegos OSA - 09/07/2024 4:51 PM ESTPending Prescriptions: Disp Refills prednisoLONE Acetate 1 % Ophthalmic Suspen*10 mL 0 Sig: Instill 1 Drop into the right eye in the morning and 1 Drop at noon and 1 Drop in the evening and 1 Drop before bedtime. To begin after eye surgery. * Telephone Encounter - Lita Cortes CPhT - 09/07/2024 1:22 PM EST Patient is up to date for office visits. Pending Prescriptions: Disp Refills prednisoLONE Acetate 1 % Ophthalmic Suspe*10 mL 0 Sig: Instill 1 Drop into the right eye in the morning and 1 Drop at noon and 1 Drop in the evening and 1 Drop before bedtime. To begin after eye surgery. Last Visit: 08/26/2024 (in office), Visit date not found (telemedicine) Next Visit: Visit date not found If no future appointments scheduled, and last appointment is greater than a year ago, please schedule patient for a follow-up appointment Last date the medication was ordered: 07/23/2024 Pharmacy: [id number] [id number] [facility] Is this request for a controlled substance?No it is not controlled. Urine Drug Screen:No results found. However, due to the size of the patient record, not all encounters were searched. Please check Results Review for a complete set of results. Patient Phone Numbers Labs: Lab Results Component Value Date/Time CREAT 1.1 (H) 05/25/2024 03:33 PM CREAT 1.3 (H) 09/19/2020 11:36 AM CREAT 0.7 12/17/1996 11:02 AM POTASSIUM 4.0 05/25/2024 03:33 PM POTASSIUM 4.3 09/19/2020 11:36 AM POTASSIUM 5.0 [...] Care Team (Late st Contact Info) Description 09/23/2024 10:10 AM EST Office Visit Optometry, [address] [address] Raudel Hernandez OD [address] [place] [address] 10/14/2024 2:45 PM EST Cardiac Studies Cardiac Studies [address] [place] [address] 11/30/2024 1:00 PM EST Nurse Only Ancillary [address] [place] [address] [place], Nurse Annual Wellness [address] [place] [address] [place] [address] 11/30/2024 2:40 PM EST Office Visit Family Medicine [address] [place] [phone] Marcela Ramirez CRNP [address] [place] [address] [place] [address] 12/28/2024 12:30 PM EDT Office Visit Cardiology [address] [place] [address] Graeme Pang PA-C [address] [place] [address] 12/29/2024 1:20 PM EDT Office Visit Dermatology [address] [place] [address] Mami Rodriguez PA-C [address] [place] [address] [place] [address] 06/21/2025 1:40 PM EDT Office Visit Family Medicine [address] [place] [phone] Rose Marie Galloway MD [address] [place] [address] [place] [address] Health Maintenance Due Date Last Done Comments [...] history exists DXA Scan 11/04/2024 11/04/2022, 11/04/2022 GFR 11/25/2024 05/25/2024, 08/0 06/2024, 11/12/2023, Additional history exists Adult Wellness Visit 11/27/2024 11/27/2023, 11/26/19 23 Depression Screening 11/27/2024 11/27/2023 CKD HGB USE SMARTSET 96171 05/14/202505/14, 11/12/2023, 11/12/2023, Additional history exists CKD PHOS USE SMARTSET 55373 05/25/2025/2 , 12/24/2022, 12/05/2021, Additional history exists TSH 05/25/2025 05/25/2024, 04/2024, 09/25/2023, Additional history exists Cologuard 08/21/2025 08/21/2022, 05/2022, 08/13/2022, Additional history exists Colorectal Cancer Screening 08/21/2025 Diabetes Screening 08/17/2027 08/17/2024, 0 05/25/2024, 05/14/2024, Additional history exists DTap/Tdap Vaccines (3 - Td or Tdap) 09/01/2028 09/01/2018, 03/14/2008 Lipid Panel 11/12/2028 11/12/2023, 12/05, 01/24/2022, Additional history exists Pap Smear Discontinued 03/26/2022, 03/06, 11/27/2015, Additional history exists Pneumococcal Vaccine: 65+ Years Completed 11/21/2022, 08/12/2006 VITAMIN D LEVEL ONCE IN A LIFETIME-USE SMARTSET# 97608 Completed 05/25/2024, 06/04/2023, 11/05/2022, Additional history exists [...] this encounter Medical Devices Implanted Type Area Video Control Operator Device Identifier Shelf Expiration Date Model / Serial / Lot Alloderm 6 X 16cm [place] [facility] [place] Breast LIFE CELL MADDIE [id number] / [id number] / [id number] Description:Alloderm 6 x 16 cm to right breast [id number] - [id number] Implanted:Qty: 1 on 02/05/2007 [place] [facility] [facility] [place] Breast LIFE CELL MADDIE [id number] / [id number] / [id number] Description:ALLODERM TO left breast 6 x 16cm [place] Breast Implant Implanted:Qty: 1 on [place]05/2007 [place] [facility] [place] Breast MENTOR MADDIE 08/06/2010 350-1697 / [id number] / [id number] Description:700ml Breast Imp lant to Right Breast [place] Breast Implant Implanted:Qty: 1 on 02/05/2007 [place] [facility] [facility] [place] Breast MENTOR MADDIE 08/06/2010 350-1697 / [id number] / [id number] Description:[place] Breast Im plant to Left BreaST Graft Fascia Nevin 2x3 75097 - [id number] Implanted:Qty: 1 on 03/20/2010 at [facility] Right: Eye IOP INC 06/06/2014 [id number] / / [id number] Breast Implant 350-1697 Saline - [id number] Implanted:Qty: 1 on 04/20/2011 [place] [facility] [place]: Breast MENTOR MADDIE 04/04/2015 350-1697 / [id number] / [id number] Description:[place] smooth ro und moderate profile saline. Envelope Antibacteral Tyrx - [id number] Implanted:Qty: 1 on 05/14/2024 by Zulema Giordano IV, [place] at [facility] [place] [employer] : CRM [id number] 01/30/2025 [id number] / / [id number] [id number] [place] Mri Quad Supervisor [place]-D - [id number] Implanted:Qty: 1 on 05/14/2024 by Zulema Giordano IV, MD at [facility] [place] [place] [employer] [id number] 07/03/2025 [id number] / [id number] / [id number] S Ring Morcher Type 14a Mr-1410 - [id number] Implanted:Qty: 1 on 08/17/2024 by Frank Zuñiga MD at OR [facility] Right: Eye MORCHER [id number] 04/04/2026 MR-1410 / [id number] / [id number] Lens 17.5 [id number] - [id number] Implanted:Qty: 1 on 08/17/2024 by Frank Zuñiga MD at OR [facility] Right: Eye ANNABELLE : SURGICAL [id number] 03/15/2029 [id number] / [id number] / [id number] documented as of this encounter Advance [...] were consensually agreed upon. Care Teams Air And Missile Defense Crewmember Relationship Specialty Start Date End Date Rose Marie Galloway MD [address] [place] [address] [place] [address] PCP - General Family Medicine 05/24/14 documented as of this encounter
--- OUTSIDE RECORDS SUMMARY | 2024-11-25 03:27 | External Medical Summary | Summary of Care ---
Author Name Unknown Organization [facility] Address [address] [place] [address] Phone [phone] Care Team Providers Care Oil Drilling Engineer Name Role Phone Rose Marie Galloway MD Primary Care Provide r Reason for Visit * Reason Comments Outpatient Testing Encounter Details Date Type Department Care Team (Late st Contact Info) Description 09/20/2024 11:20 AM EST Laboratory Laboratory [address] [place] [phone] [place] [address] Hypercalcemia Allergies Active Allergy Reactions Criticality Noted Date Comments Docetaxel 02/14/2011 Chest pain, passed out , could not talk, saw silver round bubbles documented as of this encounter (statuses as of 09/20/2024) Medications OXYCODONE HCL 10 MG PO TABSIndications:pa [...] as of this encounter (statuses as of 09/20/2024) Active Problems Problem Noted Date Diagnosed Date NICM (nonischemic cardiomyopathy) 04/19/2024 ICD (implantable cardioverter-defibrillator) in place 04/19/2024 Chronic kidney disease, stage 3b 11/18/2022 Overview: Per CKD protocol Osteoporosis, postmenopausal 11/05/2022 Permanent atrial fibrillation 11/05/2022 Peripheral vascular disease 10/23/2021 Hx of melanoma of skin 12/04/2020 Overview (12/04/2020): 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, [place] II, 11/2020) Hypertensive heart and kidne y [...] 08/23/2014 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 Lsdaywc-Jkcyn-Jhbxg disease 12/24/2010 Systolic heart failure, chronic 08/03/2009 [...] as of this encounter (statuses as of 09/20/2024) Resolved Problems Problem Noted Date Diagnosed Date [...] as of this encounter (statuses as of 09/20/2024) Immunizations Name Administration Dates Next Due COVID-19 mRNA, LNP-s, No Pre serve, 2-Dose Series (Moderna) 02/12/2021,01/15/2021 Pneumococcal Conjugate Vacci ne, 20-valent (Tjfwhiu91) 11/21/2022 Pneumococcal Polysaccharide PPV23 (Pneumovax) 08/12/2006 Seasonal [...] 09/23/2024 10:10 AM EST Office Visit Optometry, [address] [address] Raudel Hernandez, OD [address] [place] [address] 10/14/2024 2:45 PM EST Cardiac Studies Cardiac Studies [address] [place] [address] 11/30/2024 1:00 PM EST Nurse Only Ancillary [address] [place] [address] [place], Nurse Annual Wellness [address] [place] [address] [place] [address] 11/30/2024 2:40 PM EST Office Visit Family Medicine [address] [place] [phone] Marcela Ramirez CRNP [address] [place] [address] [place] [address] 12/28/2024 12:30 PM EDT Office Visit Cardiology [address] [place] [address] Graeme Pang PA-C [address] [place] [address] 12/29/2024 1:20 PM EDT Office Visit Dermatology [address] [place] [address] Mami Rodriguez PA-C [address] [place] [address] [place] [address] 06/21/2025 1:40 PM EDT Office Visit Family Medicine [address] [place] [phone] Rose Marie Galloway MD [address] [place] [address] [place] [address] Pending Results Name Type Priority Associated Diagnoses Date /Time CALCIUM, IONIZED Lab Routine Hypercalcemia 09/20/2024 10:19 AM EST PTH Lab Routine Hypercalcemia 09/20/2024 10:19 AM EST BASIC METABOLIC PANEL Lab Routine Hypercalcemia 09/20/2024 10:19 AM EST Health Maintenance Due Date Last Done [...] exists Adult Wellness Visit 11/27/2024 11/27/2023, 11/26/19 Depression Screening 11/27/2024 11/27/2023 CKD HGB USE SMARTSET 66601 05/14/202505/14, 11/12/2023, 11/12/2023, Additional history exists CKD PHOS USE SMARTSET 74540 05/25/20252 , 12/24/2022, 12/05/2021, Additional history exists TSH 05/25/2025 05/25/2024, 0 04/2024, 09/25/2023, Additional history exists Cologuard 08/21/2025 08/21/2022, 0 05/2022, 08/13/2022, Additional history exists Colorectal Cancer Screening 08/21/2025 Diabetes Screening 08/17/2027 08/17/2024, 0 05/25/2024, 05/14/2024, Additional history exists DTap/Tdap Vaccines (3 - Td or Tdap) 09/01/2028 09/01/2018, 03/14/2008 Lipid Panel 11/12/2028 11/12/2023, 12/05, 01/24/2022, Additional history exists Pap Smear Discontinued 03/26/2022, 03/06, 11/27/2015, Additional history exists Pneumococcal Vaccine: 65+ Years Completed 11/21/2022, 08/12/2006 VITAMIN D LEVEL ONCE IN A LIFETIME-USE SMARTSET# 80602 Completed 05/25/2024, 06/04/2023, 11/05/2022, Additional history exists [...] this encounter Medical Devices Implanted Type Area Ocean Freight Agent Device Identifier Shelf Expiration Date Model / Serial / Lot Alloderm 6 X 16cm [place]ed:Q[place] 1 [place] [facility] [place] LIFE CELL MADDIE [id number] / [id number] / [id number] Description:Alloderm 6 x 16 cm to right breast [id number] - [id number] Implanted:Qty: 1 on 02[place]05/2007 [place] [facility] [place] Breast LIFE CELL MADDIE [id number] / [id number] / [id number] Description:ALLODERM TO left breast 6 x 16cm [place] Breast Implant Implanted:Qty: 1 on 02[place]05/[place] [facility] [place] Breast MENTOR MADDIE 08/06/2010 350-1697 / [id number] / [id number] Description:700ml Breast Imp lant to Right Breast [place] Breast Implant Implanted:Qty: 1 on 02[place]05/2007 [place] [facility] [place] Breast MENTOR MADDIE 08/06/2010 350-1697 / [id number] / [id number] Description:[place] Breast Im plant to Left BreaST Graft Fascia Nevin 2x3 67047 - [id number] Implanted:Qty: 1 on 03/20/2010 at [facility] Right: Eye [employer] 06/06/2014 43088 / / [id number] Breast Implant 350-1697 Saline - [id number] Implanted:Qty: 1 [place] 04/20/2011 [place] [facility] [place] Breast MENTOR MADDIE 04/04/2015 350-1697 / [id number] / [id number] Description:[place] smooth ro und moderate profile saline. Envelope Antibacteral Tyrx - [id number] Implanted:Qty: 1 on 05/14/2024 by Zulema Giordano IV, [place] [facility] [place] [facility] [place] [employer] : CRM [id number] 01/30/2025 [id number] 133 / / [id number] Defib [place] Mri Quad Laundry Attendant-D - [id number] Implanted:Qty: 1 on 05/14/2024 by Zulema Giordano IV, [place] [facility] [place] [employer] [id number] 07/03/2025 [id number] / [id number] / [id number] S Ring Morcher Type 14a Mr-1410 - [id number] Implanted:Qty: 1 on 08/17/2024 by Frank Zuñiga MD at OR [facility] Right: Eye MORCHER [id number] 04/04/2026 MR-1410 / [id number] / [id number] Lens 17.5 [id number] - [id number] Implanted:Qty: 1 on 08/17/2024 by Frank Zuñiga MD at OR [facility] Right: Eye ANNABELLE : SURGICAL [id number] 03/15/2029 [id number] / [id number] / [id number] documented as of this encounter Visit Diagnoses Diagnosis Hypercalcemia documented in this encounter Advance Directives * [...] and were consensually agreed upon. Care Teams Oil Drilling Engineer Relationship Specialty Start Date End Date Rose Marie Galloway MD [address] [place] [address] [place] [phone] PCP - General Family Medicine 05/24/14 documented as of this encounter
--- OUTSIDE RECORDS SUMMARY | 2024-11-25 03:27 | External Medical Summary | Summary of Care ---
Author Name Unknown Organization [facility] Address [address] [place] [address] Phone [phone] Care Team Providers Care Baggage Handling Supervisor Name Role Phone Rose Marie Galloway MD Primary Care Provide r Encounter Details Date Type Department Care Team (Late st Contact Info) Description 10/18/2024 2:15 PM EST Documentation Eye[address] [address] [place], [place] [address] [place] [address] Arrived Allergies Active Allergy Reactions Criticality Noted [...] Overview (12/04/2020): 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, [place] II, 11/2020) Hypertensive heart and kidne y [...] 08/23/2014 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 Xtbrbtz-Dupjl-Xclhi disease 12/24/2010 Systolic heart failure, chronic 08/03/2009 [...] (Moderna) 02/12/2021,01/15/2021 Pneumococcal Conjugate Vacci ne, 20-valent (Mytapfq74) 11/21/2022 Pneumococcal Polysaccharide PPV23 (Pneumovax) 08/12/2006 Seasonal [...] - 10/18/2024 2:00 PM EST [place] Lab: [facility] Order Type: Complete Kayce Doherty 1955 [id number] [place] [id number] Text Order Date: 10/18/2024 Provider: titus Rx Date: 10/18/24 Dispenser: Adilene James Redo Reason: Patient Rx: Glasses Prescription (10/18/2024) Sphere Cylinder [place] Add Right +1.25 -6.50 165 +2.75 Left Balance Type: Bifocal Expiration Date: 10/18/2026 Lab Notes: Frame sent to [facility] for lenses. FT 28 Lenses Type/Style: Right: Flat Top 28 Left: Flat Top 28 Lens Material: Polycarbonate Photochrom: Edge: Coating: Tint: Right Left Dist PD: 31.5 Near PD: Dist PD: 31.5 Near PD: Seg Ht: 15 OC: Seg Ht: 15 [facility] [place] Deputy Coroner Investigator/Collection: Prodesign - Nifties Style: 9522 zyl Color: 6745 Eye Size: 47 - 18 - 140 B: 39 ED 50 documented in this encounter Plan of Treatment Upcoming Encounters Date Type Department Care Team (Late st Contact Info) Description 10/18/2024 2:30 PM EST Documentation Eyewear [address] [address] [facility] [address] [place] [address] Arrived 11/05/2024 11:30 AM EST Office Visit Optometry, [address] [address] Raudel Hernandez, OD [address] [place] [address] 11/30/2024 1:00 PM EST Nurse Only Ancillary [address] [place] [address] [place], Nurse [address] [place] [address] 11/30/2024 2:40 PM EST Office Visit Family Medicine [address] [place] [phone] Marcela Ramirez CRNP [address] [place] [address] [place] [address] 12/28/2024 12:30 PM EDT Office Visit Cardiology [address] [place] [address] Graeme Pang PA-C [address] [place] [address] 12/29/2024 1:20 PM EDT Office Visit Dermatology [address] [place] [address] Mami Rodriguez PA-C [address] [place] [address] [place] [address] 06/21/2025 1:40 PM EDT Office Visit Family Medicine [address] [place] [phone] Rose Marie Galloway MD [address] [place] [address] [place] [address] 10/21/2025 1:00 PM EST Office Visit Optometry, [place] [address] [place] [address] Raudel Hernandez, OD [address] [place] [address] Health Maintenance Due Date Last Done Comments [...] Additional history exists CKD HGB USE SMARTSET 56720 05/14/202505/14, 11/12/2023, 11/12/2023, Additional history exists CKD PHOS USE SMARTSET 93172 05/25/202505/07, 12/24/2022, 12/05/2021, Additional history exists TSH [...] D LEVEL ONCE IN A LIFETIME-USE SMARTSET# 51653 Completed 05/25/2024, 06/04/2023, 11/05/2022, Additional history exists [...] this encounter Medical Devices Implanted Type Area Deputy Coroner Investigator Device Identifier Shelf Expiration Date Model / Serial / Lot Alloderm 6 X 16cm Implanted:Qty: 1 on 02/05/2007 [place] [facility] [place]: Breast LIFE CELL MADDIE [id number] / [id number] / [id number] Description:Alloderm 6 x 16 cm to right breast [id number] - [id number] Implanted:Qty: 1 on 02/05/2007 [place] [facility] [place] Left: Breast LIFE CELL MADDIE [id number] / [id number] / [id number] Description:ALLODERM TO left breast 6 x 16cm [place] Breast Implant Implanted:Qty: 1 on 02/05/2007 [place] [facility] [place] Right: Breast MENTOR MADDIE 08/06/2010 350-1697 / [id number] / [id number] Description:700ml Breast Imp lant to Right Breast [place] Breast Implant Implanted:Qty: 1 on 02/05/2007 [place] [facility] [place] Left: Breast MENTOR MADDIE 08/06/2010 350-1697 / [id number] / [id number] Description:[place] Breast Im plant to Left BreaST Graft Fascia Nevin 2x3 31431 - [id number] Implanted:Qty: 1 on 03/20/2010 at OR [facility] Right: Eye IOP INC 06/06/2014 89992 / / [id number] Breast Implant 350-1697 Saline - [id number] Implanted:Qty: 1 on 04/20/2011 [place] [facility] [place] Right: Breast MENTOR MADDIE 04/04/2015 350-1697 / [id number] / [id number] Description:[place] smooth ro und moderate profile saline. Envelope Antibacteral Tyrx - [id number] Implanted:Qty: 1 on 05/14/2024 by Zulema Giordano IV, MD at [facility] [place] [employer] : CRM [id number] 01/30/2025 CMRM6 133 / / [id number] Defib [place] Mri Quad Tapper Supervisor-D - [id number] Implanted:Qty: 1 on 05/14/2024 by Zulema Giordano IV, MD at [facility] [place] [employer] [id number] 07/03/2025 [id number] / [id number] / [id number] S Ring Morcher Type 14a Mr-1410 - [id number] Implanted:Qty: 1 on 08/17/2024 by Frank Zuñiga MD at OR [facility] Right: Eye MORCHER [id number] 04/04/2026 MR-1410 / [id number] / [id number] Lens 17.5 [id number] - [id number] Implanted:Qty: 1 on 08/17/2024 by Frank Zuñiga MD at OR [facility] Right: Eye ANNABELLE : SURGICAL [id number] 03/15/2029 [id number] / [id number] / [id number] documented as of this encounter Advance [...] and were consensually agreed upon. Care Teams Baggage Handling Supervisor Relationship Specialty Start Date End Date Rose Marie Galloway MD [address] [place] [address] [place] [address] PCP - General Family Medicine 05/24/14 documented as of this encounter
--- OUTSIDE RECORDS SUMMARY | 2024-11-25 03:27 | External Medical Summary | Summary of Care ---
Author Name Unknown Organization [facility] Address [address] [place] [address] Phone [phone] Care Team Providers Care Rope Making Machine Operator Name Role Phone Rose Marie Galloway MD Primary Care Provide r Encounter Details Date Type Department Care Team (Late st Contact Info) Description 10/18/2024 2:15 PM EST Documentation Eye[address] [address] [place], [facility] [address] [place] [id number] Allergies Active Allergy Reactions Criticality Noted Date [...] Overview (12/04/2020): 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, [place] II, 11/2020) Hypertensive heart and kidne [...] 08/23/2014 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 0 [...] (Moderna) 02/12/2021,01/15/2021 Pneumococcal Conjugate Vacci ne, 20-valent ([id number]) 11/21/2022 Pneumococcal Polysaccharide PPV23 (Pneumovax) 08/12/2006 Seasonal [...] - 10/18/2024 2:00 PM EST [place] Lab: [facility] Order Type: Complete Kayce Doherty [id number] [place] [phone] Text Order Date: 10/18/2024 Provider: titus Rx Date: 10/18/24 Dispenser: Adilene James Redo Reason: Patient Rx: Glasses Prescription (10/18/2024) Sphere Cylinder [place] Add Right +1.25 -6.50 165 +2.75 Left Balance Type: Bifocal Expiration Date: 10/18/2026 Lab Notes: Frame sent to [facility] for lenses. FT 28 Lenses Type/Style: Right: Flat Top 28 Left: Flat Top 28 Lens Material: Polycarbonate Photochrom: Edge: Coating: Tint: Right Left Dist PD: 31.5 Near PD: Dist PD: 31.5 Near PD: Seg Ht: 15 OC: Seg Ht: 15 OC[facility] [place] [facility] Plant Manager/Collection: Prodesign - Nifties Style: 9522 zyl Color: 6745 Eye Size: 47 - 18 - 140 B: 39 ED 50 documented in this encounter Plan of Treatment Upcoming Encounters Date Type Department Care Team (Late st Contact Info) Description 11/05/2024 11:30 AM EST Office Visit Optometry, [place] [address] [place] [address] Raudel Hernandez, OD [address] [place] [address] 11/30/2024 1:00 PM EST Nurse Only Ancillary [address] [place] [address] [place], Nurse [address] [place] [address] 11/30/2024 2:40 PM EST Office Visit Family Medicine [address] [place] [phone] Marcela Ramirez [address] [place] [address] 12/28/2024 12:30 PM EDT Office Visit Cardiology [address] [place] [address] Graeme Pang PA-C [address] [facility] [place] [address] 12/29/2024 1:20 PM EDT Office Visit Dermatology [address] [place] [address] Mami Rodriguez PA-C [address] [place] [address] [place] [address] 06/21/2025 1:40 PM EDT Office Visit Family [address] [place] [phone] Rose Marie Galloway MD [address] [place] [address] [place] [address] 10/21/2025 1:00 PM EST Office Visit Optometry, [place] [address] [place] [address] Raudel Hernandez, OD [address] [place] [address] Health Maintenance Due Date Last Done Comments [...] Additional history exists CKD HGB USE SMARTSET 93642 05/14/202505/14, 11/12/2023, 11/12/2023, Additional history exists CKD PHOS USE SMARTSET 39600 05/25/2025 08, 12/24/2022, 12/05/2021, Additional history exists [...] D LEVEL ONCE IN A LIFETIME-USE SMARTSET# 28693 Completed 05/25/2024, 06/04/2023, 11/05/2022, Additional history exists [...] this encounter Medical Devices Implanted Type Area Plant Manager Device Identifier Shelf Expiration Date Model / Serial / Lot Alloderm 6 X 16cm [place]planted:Q[place] 1 on [place]05/[place] [facility] [place]: Breast LIFE CELL MADDIE [id number] / [id number] / [id number] Description:Alloderm 6 x 16 cm to right breast [id number] - [id number] Implanted:Qty: 1 on 02/05/2007 [place] [facility] [place] Left: Breast LIFE CELL MADDIE [id number] / [id number] / [id number] Description:ALLODERM TO left breast 6 x 16cm [place] Breast Implant Implanted:Qty: 1 on 02/05/2007 [place] [facility] [place] Right: Breast MENTOR MADDIE 08/06/2010 350-1697 / [id number] / [id number] Description:700ml Breast Imp lant to Right Breast [place] Breast Implant Implanted:Qty: 1 on 02/05/2007 [place] [facility] [place] Left: Breast MENTOR MADDIE 08/06/2010 350-1697 / [id number] / [id number] Description:[place] Breast Im plant to Left BreaST Graft Fascia Nevin 2x3 [id number] - [id number] Implanted:Qty: 1 on 03/20/2010 at [facility] Right: Eye IOP [employer] 06/06/2014 12329 / / [id number] Breast Implant 350-1697 Saline - [id number] Implanted:Qty: 1 on 04/20/2011 at [place] [facility] [place] Right: Breast MENTOR MADDIE 04/04/2015 350-1697 / [id number] / [id number] Description:[place] smooth ro und moderate profile saline. Envelope Antibacteral Tyrx - [id number] Implanted:Qty: 1 on 05/14/2024 by Zulema Giordano IV, MD at [facility] [place] [employer] : CRM [id number] 01/30/2025 [id number] / / [id number] Defib [place] Mri Quad Supervisor Agency Appointments-D - [id number] Implanted:Qty: 1 on 05/14/2024 by Zulema Giordano IV, MD at [facility] [place] [employer] [id number] 07/03/2025 [id number] / [id number] / [id number] S Ring Morcher Type 14a Mr-1410 - [id number] Implanted:Qty: 1 on 08/17/2024 by Frank Zuñiga MD at [facility] Right: Eye MORCHER [id number] 04/04/2026 MR-1410 / [id number] / [id number] Lens 17.5 [id number] - [id number] Implanted:Qty: 1 on 08/17/2024 by Frank Zuñiga MD at OR [facility] Right: Eye ANNABELLE : SURGICAL [id number] 03/15/2029 [id number] / [id number] / [id number] documented as of this encounter Advance [...] and were consensually agreed upon. Care Teams Rope Making Machine Operator Relationship Specialty Start Date End Date Rose Marie Galloway MD [address] [place] [address] [place] [address] PCP - General Family Medicine 05/24/14 documented as of this encounter
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
--- OUTSIDE RECORDS SUMMARY | 2024-11-25 03:28 | External Medical Summary | Summary of Care ---
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 [id number] documented as of this encounter Procedures Procedure Name Priority Date/Time Associated Diagnosis Comments GLUCOSE METER, POINT OF CARE [facility] 08/17/2024 10:13 AM EST documented in this encounter Results * GLUCOSE METER, POINT OF CARE (08/17/2024 10:13 AM EST) GLUCOSE - POCT 78 70 - 120 mg/dL 08/17/2024 10:24 AM EST [facility] 52-10 Blood Whole blood specimen / Unknown 08/17/2024 10:13 AM EST 08/17/2024 10:23 AM EST us Kia Zuñiga MD LAB POINT OF CARE TE ST DOCKED DEVICE UNSOLICITED RESULTS Final Result JO JOHN [address] [place] [address] documented in this encounter Administered Medications Inactive Administered Medications - up to 3 most recent administrations Medication Order MAR Action Action Date Dose Rate Site Acetaminophen (Tylenol) tab 650 mg 650 mg, Oral, PRN Pain, Mild, Starting on Fri08/17/24 at 1147, Until Fri08/17/24 at 1631, For 1 dose, Maximum of 4 grams (4000 mg) per day., Post-op Flurbiprofen Sodium (Ocufen) 0.03 % ophthalmic solution 1 Drop 1 Drop, Right eye, Q5 MINUTES, First dose on Fri08/17/24 at 1000, Last dose on Fri08/17/24 at 1010, For 3 doses, PRE-OP: One drop to right eye every 5 minutes for 3 doses, Pre-Op Given 08/17/2024 10:00 AM EST 1 Drop Given 08/17/2024 9:55 AM EST 1 Drop Given 08/17/2024 9:50 AM EST 1 Drop Lidocaine urethral/mucosal 2 % gel 2 mL Topical, ONCE, 1 dose, On Fri08/17/24 at 1000, 15 minutes prior to scheduled surgery time, apply 2 ml to superior and inferior fornices right eye & tape eyes shut., Pre-Op Given 08/17/2024 10:28 AM EST 2 mL moxifloxacin (Vigamox) 0.5 % ophthalmic solution 1 Drop 1 Drop, Right eye, Q5 MINUTES, First dose on Fri08/17/24 at 1000, Last dose on Fri08/17/24 at 1010, For 3 doses, PRE-OP: One drop to right eye every 5 minutes for 3 doses, Pre-Op Given 08/17/2024 10:00 AM EST 1 Drop Given 08/17/2024 9:55 AM EST 1 Drop Given 08/17/2024 9:50 AM EST 1 Drop NSS infusion Intravenous, at 50 mL/hr, CONTINUOUS, Starting on Fri08/17/24 at 1015, Until Fri08/17/24 at 1631, Pre-Op Nurse Change 08/17/2024 11:45 AM EST 50 mL /hr Restarted 08/17/2024 11:40 AM EST Continue from Pre-Op 08/17/2024 10:52 AM EST 50 mL/hr proparacaine (Alcaine) 0.5 % ophthalmic solution 1 Drop 1 Drop, Right eye, ONCE, On Fri08/17/24 at 1000, For 1 dose, PRE-OP: 15 minutes prior to scheduled surgery time for 1 dose, Pre-Op Given 08/17/2024 9:50 AM EST 1 Drop tropicamide 1%-PHENYLephrine 2.5% Ophthalmic Solution 1 Drop, Right eye, Q5 MINUTES, First dose on Fri08/17/24 at 1000, Last dose on Fri08/17/24 at 1010, For 3 doses, PRE-OP: One drop to right eye every 5 minutes for 3 doses, Pre-Op Given 08/17/2024 10:00 AM EST 1 Drop Given 08/17/2024 9:55 AM EST 1 Drop Given 08/17/2024 9:50 AM EST 1 Drop documented in this encounter Active and Recently Administered Medications Times are shown in EST. Scheduled Medication Order 08/15/2024 08/16/2024 08/17/2024 Flurbiprofen Sodium (Ocufen) 0.03 % ophthalmic solution 1 Drop (COMPLETED) 1 Drop, Right eye, Q5 MINUTES, First dose on Fri08/17/24 at 1000, Last dose on Fri08/17/24 at 1010, For 3 doses, PRE-OP: One drop to right eye every 5 minutes for 3 doses, Pre-Op 0950 (Given - Provid er: Jes Rogers RN)0955 (Given - Provider: Jes Rogers RN)1000 (Given - Provider: Jes Rogers RN) Lidocaine urethral/mucosal 2 % gel 2 mL (COMPLETED) Topical, ONCE, 1 dose, On Fri08/17/24 at 1000, 15 minutes prior to scheduled surgery time, apply 2 ml to superior and inferior fornices right eye & tape eyes shut., Pre-Op 1028 (Given - Provid er: Jes Rogers RN) moxifloxacin (Vigamox) 0.5 % ophthalmic solution 1 Drop (COMPLETED) 1 Drop, Right eye, Q5 MINUTES, First dose on Fri08/17/24 at 1000, Last dose on Fri08/17/24 at 1010, For 3 doses, PRE-OP: One drop to right eye every 5 minutes for 3 doses, Pre-Op 0950 (Given - Provid er: Jes Rogers RN)0955 (Given - Provider: Jes Rogers RN)1000 (Given - Provider: Jes Rogers RN) proparacaine (Alcaine) 0.5 % ophthalmic solution 1 Drop (COMPLETED) 1 Drop, Right eye, ONCE, On Fri08/17/24 at 1000, For 1 dose, PRE-OP: 15 minutes prior to scheduled surgery time for 1 dose, Pre-Op 0950 (Given - Provid er: Jes Rogers RN) tropicamide 1%-PHENYLephrine 2.5% Ophthalmic Solution (COMPLETED) 1 Drop, Right eye, Q5 MINUTES, First dose on Fri08/17/24 at 1000, Last dose on Fri08/17/24 at 1010, For 3 doses, PRE-OP: One drop to right eye every 5 minutes for 3 doses, Pre-Op 0950 (Given - Provid er: Jes Rogers RN)0955 (Given - Provider: Jes Rogers RN)1000 (Given - Provider: Jes Rogers RN) Continuous Medication Order 08/15/2024 08/16/2024 08/17/2024 NSS infusion Intravenous, at 50 mL/hr, CONTINUOUS, Starting on Fri08/17/24 at 1015, Until Fri08/17/24 at 1631, Pre-Op 1017 (New Bag - Prov ider: Jes Rogers RN)1052 (Continue from Pre-Op - Provider: Mason Baird CRNA)1139 (Paused - Provider: Mason Baird CRNA - Comment: Switch to gravity)1140 (Restarted - Provider: Mason Baird CRNA)1145 (Nurse Change - Provider: Tatiana Restrepo, JAMAL)1223 (Stopped - Provider: Tatiana Restrepo, JAMAL) PRN Medication Order 08/15/2024 08/16/2024 08/17/2024 Acetaminophen (Tylenol) tab 650 mg 650 mg, Oral, PRN Pain, Mild, Starting on Fri08/17/24 at 1147, Until Fri08/17/24 at 1631, For 1 dose, Maximum of 4 grams (4000 mg) per day., Post-op balanced salt solution (Bss) ophthalmic solution (CANCELED) ONCE PRN INTRA PROCEDURE, Starting on Fri08/17/24 at 1112, Until Fri08/17/24 at 1144, Intra-Op 111 (Given - Provid er: Kia Zuñiga MD) briMONidine tartrate (Alphagan) 0.2 % ophthalmic solution (CANCELED) ONCE PRN INTRA PROCEDURE, Starting on Fri08/17/24 at 1112, Until Fri08/17/24 at 1144, Intra-Op 111 (Given - Provid er: Kia Zuñiga MD) DUOVISC inj KIT (CANCELED) ONCE PRN INTRA PROCEDURE, Starting on Fri08/17/24 at 1112, Until Fri08/17/24 at 1144, Intra-Op 111 (Given - Provid er: Kia Zuñiga MD) EPINEPHrine 0.5 mg in balanced salt solution 500 mL inj (CANCELED) ONCE PRN INTRA PROCEDURE, Starting on Fri08/17/24 at 1112, Until Fri08/17/24 at 1144, Intra-Op 111 (Given - Provid er: Kia Zuñiga MD) Erythromycin ophthalmic ointment (CANCELED) ONCE PRN INTRA PROCEDURE, Starting on Fri08/17/24 at 1112, Until Fri08/17/24 at 1144, Intra-Op 111 (Given - Provid er: Kia Zuñiga MD) lidocaine-epinephrine 2 %-1:[id number] inj (CANCELED) ONCE PRN INTRA PROCEDURE, Starting on Fri08/17/24 at 1112, Until Fri08/17/24 at 1144, Intra-Op 111 (Given - Provid er: Kia Zuñiga MD) moxifloxacin (Vigamox) 0.5 % ophthalmic solution (CANCELED) ONCE PRN INTRA PROCEDURE, Starting on Fri08/17/24 at 1113, Until Fri08/17/24 at 1144, Intra-Op 1113 (Given - Provid er: Kia Zuñiga MD) prednisoLONE Acetate (Pred Forte) 1 % ophthalmic suspension (CANCELED) ONCE PRN INTRA PROCEDURE, Starting on Fri08/17/24 at 1113, Until Fri08/17/24 at 1144, Intra-Op 1113 (Given - Provid er: Kia Zuñiga MD) documented in this encounter Advance Directives * [...] and were consensually agreed upon. Care Teams Barrel Stave Inspector Relationship Specialty Start Date End Date Rose Marie Galloway MD [address] [place] [address] [place] [address] PCP - General Family Medicine 05/24/14 documented as of this encounter
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
--- OUTSIDE RECORDS SUMMARY | 2024-11-25 03:28 | External Medical Summary ---
Author Name Unknown Address Unknown Organization : Laboratory Report Ordering Provider Test Date Status KATHIE ADAM 08/17/2024 10:13:56 Final Observation Date Value Abnormality Reference (Units ) Status Glucose Point of Care 08/17/2024 10:13:56 78 70-120 (mg/dL) Final Performing Location
--- OUTSIDE RECORDS SUMMARY | 2024-11-25 03:28 | External Medical Summary | Summary of Care ---
Author Name Unknown Organization [facility] Address [address] [place] [address] Phone [phone] Care Team Providers Care Big Data Lead Name Role Phone Rose Marie Galloway MD Primary Care Provide r Reason for Visit * Reason Onset Date Comments Medication Refill 08/23/2024 Encounter Details Date Type Department Care Team ([facility] st Contact Info) Description 08/23/2024 [place] [address] Lara Reagan CRNP [address] [phone] Medication Refill Allergies Active Allergy Reactions Criticality Noted Date Comments Docetaxel 02/14/2011 Chest pain, passed out , could not talk, saw silver round bubbles documented as of this encounter (statuses as of 08/23/2024) Medications OXYCODONE HCL 10 MG PO TABSIndications:pa [...] as of this encounter (statuses as of 08/23/2024) Active Problems Problem Noted Date Diagnosed Date NICM (nonischemic cardiomyopathy) 04/19/2024 ICD (implantable cardioverter-defibrillator) in place 04/19/2024 Chronic kidney disease, stage 3b 11/18/2022 Overview: Per CKD protocol Osteoporosis, postmenopausal 11/05/2022 Permanent atrial fibrillation 11/05/2022 Peripheral vascular disease 10/23/2021 Hx of melanoma of skin 12/04/2020 Overview (12/04/2020): 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, [place] II, 11/2020) Hypertensive heart and kidne y [...] 08/23/2014 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 retirement current use of anticoagulant therapy 0 05/12/2006 Overview (07/07/2017): ICD-10 update of inactive term History of breast cancer 03/28/2006 Family history of other cardiovascular diseases 05/14/2005 Overview (12/28/2015): ICD-10 update of inactive term FAMILY HX-BREAST MALIG 05/14/2005 HTN, goal below 140/90 06/26/2001 Blindness of left eye documented as of this encounter (statuses as of 08/23/2024) Resolved Problems Problem Noted Date Diagnosed Date [...] as of this encounter (statuses as of 08/23/2024) Immunizations Name Administration Dates Next Due COVID-19 mRNA, LNP-s, No Pre serve, 2-Dose Series (Moderna) 02/12/2021,01/15/2021 Pneumococcal Conjugate Vacci ne, 20-valent ([id number]) 11/21/2022 Pneumococcal Polysaccharide PPV23 (Pneumovax) 08/12/2006 Seasonal [...] encounter Miscellaneous Notes * Telephone Encounter - Deepti Melgoza CPhT - 08/23/2024 11:51 AM EST Patient's EC Silke calling to request Antibiotic eye drop refill. Doesn't know name of drop, stated it was given to patient post surgery Please call Silke with questions/once Rx sent, as she will be picking it up Thank You, Deepti Melgoza CPhT Insurance Instructor III [facility] documented in this encounter Plan of Treatment Upcoming Encounters Date Type Department Care Team (Late st Contact Info) Description 08/26/2024 1:15 PM EST Office Visit [place] [address] [place] [address] Frank Zuñiga MD [address] [place] [address] 09/23/2024 10:10 AM EST Office Visit Optometry, [place] [address] [place] [address] Raudel Hernandez, [address] [place] [address] 10/14/2024 2:45 PM EST Cardiac Studies Cardiac Studies [address] [place] [address] 11/30/2024 1:00 PM EST Nurse Only Ancillary [address] [place] [address] Negro, Nurse [address] [place] [address] 11/30/2024 2:40 PM EST Office Visit [address] [place] [phone] Marcela Ramirez [address] [place] [address] 12/28/2024 12:30 PM EDT Office Visit Cardiology [address] [place] [address] Graeme Pang PA-C [address] [place] [address] 12/29/2024 1:20 PM EDT Office Visit Dermatology [address] [place] [address] Mami Rodriguez PA-C [address] [place] [address] [place] [address] 06/21/2025 1:40 PM EDT Office Visit Family [address] [place] [phone] Rose Marie Galloway MD [address] [place] [address] [place] [phone] Health Maintenance Due Date Last Done Comments [...] Scan 11/04/2024 11/04/2022, 11/04/2022 GFR 11/25/2024 05/25/2024, 080 06/2024, 11/12/2023, Additional history exists Adult Wellness Visit 11/27/2024 11/27/2023, 11/26/19 23 Depression Screening 11/27/2024 11/27/2023 CKD HGB USE SMARTSET 20949 05/14/202505/14, 11/12/2023, 11/12/2023, Additional history exists CKD PHOS USE SMARTSET 43362 05/25/2025 08/2 , 12/24/2022, 12/05/2021, Additional history exists TSH 05/25/2025 05/25/2024, 0204/2024, 09/25/2023, Additional history exists Cologuard 08/21/2025 08/21/2022, 1105/2022, 08/13/2022, Additional history exists Colorectal Cancer Screening 08/21/2025 Diabetes Screening 08/17/2027 08/17/2024, 0 05/25/2024, 05/14/2024, Additional history exists DTap/Tdap Vaccines (3 - Td or Tdap) 09/01/2028 09/01/2018, 03/14/2008 Lipid Panel 11/12/2028 11/12/2023, 0310/2022, 01/24/2022, Additional history exists Pap Smear Discontinued 03/26/2022, 03/06, 11/27/2015, Additional history exists Pneumococcal Vaccine: 65+ Years Completed 11/21/2022, 08/12/2006 VITAMIN D LEVEL ONCE IN A LIFETIME-USE SMARTSET# 65701 Completed 05/25/2024, 06/04/2023, 11/05/2022, Additional history exists [...] this encounter Medical Devices Implanted Type Area Bagger Meat Device Identifier Shelf Expiration Date Model / Serial / Lot Alloderm 6 X 16cm Implanted:Qty: 1 on 02/05/2007 at OR [facility] Right: Breast LIFE CELL MADDIE [id number] / [id number] / [id number] Description:Alloderm 6 x 16 cm to right breast [id number] - [id number] Implanted:Qty: 1 on 02/05/2007 at OR [facility] Left: Breast LIFE CELL MADDIE [id number] / [id number] / [id number] Description:ALLODERM TO left breast 6 x 16cm [place] Breast Implant Implanted:Qty: 1 on 02/05/2007 at OR [facility] Right: Breast MENTOR MADDIE 08/06/2010 350-1697 / [id number] / [id number] Description:700ml Breast Imp lant to Right Breast [place] Breast Implant Implanted:Qty: 1 on 02/05/2007 at OR [facility] Left: Breast MENTOR MADDIE 08/06/2010 350-1697 / [id number] / [id number] Description:[place] Breast Im plant to Left BreaST Graft Fascia Nevin 2x3 36480 - [id number] Implanted:Qty: 1 on 03/20/2010 at OR [facility] Right: Eye IOP INC 06/06/2014 [id number] / / [id number] Breast Implant 350-2227 Saline - [id number] Implanted:Qty: 1 on 04/20/2011 at OR [facility] Right: Breast MENTOR MADDIE 04/04/2015 350-1697 / [id number] / [id number] Description:[place] smooth ro und moderate profile saline. Envelope Antibacteral Tyrx - [id number] Implanted:Qty: 1 on 05/14/2024 by Zulema Giordano IV, MD at [facility] [employer] : CRM [id number] 01/30/2025 [id number] 133 / / [id number] Defib [place] Mri Quad Benefits Counselor-D - [id number] Implanted:Qty: 1 on 05/14/2024 by Zulema Giordano IV, MD at [facility] [employer] [id number] 07/03/2025 [id number] / [id number] / [id number] Ring Morcher Type 14a Mr-1410 - [id number] Implanted:Qty: 1 on 08/17/2024 by Frank Zuñiga MD at OR [facility] Right: Eye MORCHER [id number] 04/04/2026 MR-1410 / [id number] / [id number] Lens 17.5 [id number] - [id number] Implanted:Qty: 1 on 08/17/2024 by Frank Zuñiga MD at OR [facility] Right: Eye ANNABELLE : SURGICAL [id number] 03/15/2029 [id number] / [id number] / [id number] documented as of this encounter Advance [...] and were consensually agreed upon. Care Teams Big Data Lead Relationship Specialty Start Date End Date Rose Marie Galloway MD [address] [place] [address] [place] [address] PCP - General Family Medicine 05/24/14 documented as of this encounter
--- OUTSIDE RECORDS SUMMARY | 2024-11-25 03:28 | External Medical Summary | Summary of Care ---
Author Name Unknown Organization [facility] Address [address] [place] [address] Phone [phone] Care Team Providers Care Gift Officer Name Role Phone Rose Marie Galloway MD Primary Care Provide r Reason for Visit * Reason Comments Post Op Cataract Surgery 1 day po CEIOL OD Encounter Details Date Type Department Care Team (Late st Contact Info) Description 08/18/2024 9:15 AM EST Office Visit [address] [address] Frank Zuñiga MD [address] [place] [address] [phone] Status post cataract surgery, right* Allergies Active [...] Overview (12/04/2020): 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, [place] II, 11/2020) Hypertensive heart and kidne y [...] 08/23/2014 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 current use of anticoagulant therapy 0 05/12/2006 [...] (Moderna) 02/12/2021,01/15/2021 Pneumococcal Conjugate Vacci ne, 20-valent (Vukidrg97) 11/21/2022 Pneumococcal Polysaccharide PPV23 (Pneumovax) 08/12/2006 Seasonal [...] as of this encounter Progress Notes * Frank Zuñiga MD - 08/18/2024 9:07 AM EST 1 day post Phaco with IOL right eye (complex; CTR required) Base Eye Exam Visual Acuity (Snellen - Linear) Right Left Dist sc 20/200 +2 Dist ph sc 20/50 -2 Near nd J7 Neuro/Psych Oriented x3: Yes Mood/Affect: Normal Slit Lamp Exam: LLL: WNL C/S: SST wound right eye Cornea: Clear right eye A/C: 2+C/F right eye I: Iridectomy inf/temporally Lens: PCIOL in good position right eye (CTR) Tap < 13 < Assessment: 1 day S/P Phaco with IOL right eye. Looks good. Plan: Pred Forte 1% QID and Moxifloxacin QID right eye. Postup Instruction sheet given to patient and reviewed with patient. RTC in 1 week; sooner PRN. Pt advised to return immediately if any pain, decreased vision, or other problems. Frank Zuñiga MD documented in this encounter Nursing Notes * Tamiko Jones TECH - 08/18/2024 9:04 AM EST Kayce Doherty presents for p/o check. Post operative day 1 procedure: Phaco w/IOL insertion Operative eye: RIGHT EYE Patient complains of scratchy feeling OD, no pain. Sclera is red, eye is tearing a lot. Pt. presents w/o dressing. Are you taking the eye drops as directed? Yes. Pred Forte and Moxifloxacin 1gtt 4 times daily in surgical eye, Erythromycin not used yet, plans on using after appt today Did you wear eye shield to bed, slept on unaffected side and avoid bending over and heavy lifting? Yes Va will be found in the ophth exam documented in this encounter Plan of Treatment Upcoming Encounters Date Type Department Care Team (Late st Contact Info) Description 08/24/2024 9:15 AM EST Office Visit [facility] [place] [address] Frank Zuñiga MD [address] [place] [address] 09/23/2024 10:10 AM EST Office Visit Optometry, [address] [address] Raudel Hernandez, OD [address] [place] [address] 10/14/2024 2:45 PM EST Cardiac Studies Cardiac Studies [address] [place] [address] 11/30/2024 1:00 PM EST Nurse Only Ancillary [address] [place] [address] Negro, Nurse [address] [place] [address] 11/30/2024 2:40 PM EST Office Visit Family Medicine [address] [place] [phone] Marcela Ramirez CRNP [address] [place] [address] [place] [address] 12/28/2024 12:30 PM EDT Office Visit Cardiology [address] [place] [address] Graeme Pang PA-C [address] [place] [address] 12/29/2024 1:20 PM EDT Office Visit Dermatology [address] [place] [address] Mami Rodriguez PA-C [address] [place] [address] [place] [address] 06/21/2025 1:40 PM EDT Office Visit Family Medicine [address] [place] [phone] Rose Marie Galloway MD [address] [place] [address] [place] [address] Health Maintenance Due Date Last Done Comments [...] Screening 11/27/2024 11/27/2023 CKD HGB USE SMARTSET 57480 05/14/202505/14, 11/12/2023, 11/12/2023, Additional history exists CKD PHOS USE SMARTSET 28747 05/25/202505/07, 12/24/2022, 12/05/2021, Additional history exists TSH [...] D LEVEL ONCE IN A LIFETIME-USE SMARTSET# 12454 Completed 05/25/2024, 06/04/2023, 11/05/2022, Additional history exists [...] this encounter Medical Devices Implanted Type Area Fire Observer Device Identifier Shelf Expiration Date Model / Serial / Lot Alloderm 6 X 16cm Implanted:Qty: 1 on 02/05/2007 at [place] [facility] Right: Breast [employer] [id number] / [id number] / [id number] Description:Alloderm 6 x 16 cm to right breast [id number] - [id number] Implanted:Qty: 1 on 02/05/2007 at OR [facility] Left: Breast LIFE CELL MADDIE 133022 / [id number] / [id number] Description:ALLODERM TO left breast 6 x 16cm [place] Breast Implant Implanted:Qty: 1 on 02/05/2007 at OR [facility] Right: Breast MENTOR MADDIE 08/06/2010 350-1697 / [id number] / [id number] Description:700ml Breast Imp lant to Right Breast [place] Breast Implant Implanted:Qty: 1 on 02/05/2007 at OR [facility] Left: Breast MENTOR MADDIE 08/06/2010 350-1697 / [id number] / [id number] Description:[place] Breast Im plant to Left BreaST Graft Fascia Nevin 2x3 02558 - [id number] Implanted:Qty: 1 on 03/20/2010 at OR [facility] Right: Eye IOP INC 06/06/2014 02625 / / [id number] Breast Implant 350-1697 Saline - [id number] Implanted:Qty: 1 on 04/20/2011 at OR [facility] Right: Breast MENTOR MADDIE 04/04/2015 350-1697 / [id number] / [id number] Description:[place] smooth ro und moderate profile saline. Envelope Antibacteral Tyrx - [id number] Implanted:Qty: 1 on 05/14/2024 by Zulema Giordano IV, MD at [facility] [employer] : CRM [id number] 01/30/2025 CMRM6 133 / / [id number] Defib [place] Mri Quad Director Biostatistics-D - [id number] Implanted:Qty: 1 on 05/14/2024 by Zulema Giordano IV, MD at [facility] [employer] [id number] 07/03/2025 [id number] / [id number] / [id number] S Ring Morcher Type 14a Mr-1410 - [id number] Implanted:Qty: 1 on 08/17/2024 by Frank Zuñiga MD at OR [facility] Right: Eye MORCHER [id number] 04/04/2026 MR-1410 / [id number] / [id number] Lens 17.5 [id number] - [id number] Implanted:Qty: 1 on 08/17/2024 by Frank Zuñiga MD at OR [facility] Right: Eye ANNABELLE : SURGICAL [id number] 03/15/2029 [id number] / [id number] / [id number] documented as of this encounter Visit [...] and were consensually agreed upon. Care Teams Gift Officer Relationship Specialty Start Date End Date Rose Marie Galloway MD [address] [place] [address] [place] [phone] PCP - General Family Medicine 05/24/14 documented as of this encounter
--- OUTSIDE RECORDS SUMMARY | 2024-11-25 03:28 | External Medical Summary | Summary of Care ---
Author Name Unknown Organization [facility] Address [address] [place] [address] Phone [phone] Care Team Providers Care Assistant Printer Floor Covering Name Role Phone Rose Marie Galloway MD Primary Care Provide r Reason for Visit * Reason Comments Post Op Cataract Surgery 1 day po CEIOL OD Encounter Details Date Type Department Care Team (Late st Contact Info) Description 08/18/2024 9:15 AM EST Office Visit [address] [address] Frank Zuñiga MD [address] [place] [address] [phone] Status post cataract surgery, right* Allergies Active [...] Overview (12/04/2020): 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, [place] II, 11/2020) Hypertensive heart and kidne y [...] 08/23/2014 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 anticoagulant therapy 0 05/12/2006 [...] (Moderna) 02/12/2021,01/15/2021 Pneumococcal Conjugate Vacci ne, 20-valent (Zwbfnhj81) 11/21/2022 Pneumococcal Polysaccharide PPV23 (Pneumovax) 08/12/2006 Seasonal [...] +2 Dist ph sc 20/50 -2 Near md J7 Neuro/Psych Oriented x3: Yes Mood/Affect: Normal [...] Description 08/26/2024 1:15 PM EST Office Visit [facility] [place] [address] Frank Zuñiga MD [address] [place] [address] 09/23/2024 10:10 AM EST Office Visit Optometry, [address] [address] Raudel Hernandez, OD [address] [place] [address] 10/14/2024 2:45 PM EST Cardiac Studies Cardiac Studies [address] [place] [address] 11/30/2024 1:00 PM EST Nurse Only Ancillary [address] [place] [address] Negro, Nurse [address] [place] [address] 11/30/2024 2:40 PM EST Office Visit Family Medicine [address] [place] [phone] Marcela Ramirez CRNP [address] [place] [address] [place] [address] 12/28/2024 12:30 PM EDT Office Visit Cardiology [address] [place] [address] Graeme Pang PA-C [address] [place] [address] 12/29/2024 1:20 PM EDT Office Visit Dermatology [address] [place] [address] Mami Rodriguez PA-C [address] [place] [address] [place] [address] 06/21/2025 1:40 PM EDT Office Visit Family Medicine [address] [place] [phone] Rose Marie Galloway MD [address] [place] [address] [place] [address] Health Maintenance Due Date Last Done Comments [...] Screening 11/27/2024 11/27/2023 CKD HGB USE SMARTSET 25615 05/14/202505/14, 11/12/2023, 11/12/2023, Additional history exists CKD PHOS USE SMARTSET 13636 05/25/202505/07, 12/24/2022, 12/05/2021, Additional history exists TSH [...] D LEVEL ONCE IN A LIFETIME-USE SMARTSET# 11779 Completed 05/25/2024, 06/04/2023, 11/05/2022, Additional history exists [...] this encounter Medical Devices Implanted Type Area Investigator Internal Affairs Device Identifier Shelf Expiration Date Model / Serial / Lot Alloderm 6 X 16cm Implanted:Qty: 1 on 02/05/2007 at OR [facility] Right: Breast [employer] [id number] / [id number] / [id number] Description:Alloderm 6 x 16 cm to right breast [id number] - [id number] Implanted:Qty: 1 on 02/05/2007 at OR [facility] Left: Breast LIFE CELL MADDIE [id number] / [id number] / [id number] Description:ALLODERM TO left breast 6 x 16cm [place] Breast Implant Implanted:Qty: 1 on 02/05/2007 at OR [facility] Right: Breast MENTOR MADDIE 08/06/2010 350-1697 / [id number] / [id number] Description:700ml Breast Imp lant to Right Breast [place] Breast Implant Implanted:Qty: 1 on 02/05/2007 at OR [facility] Left: Breast MENTOR MADDIE 08/06/2010 350-1697 / [id number] / [id number] Description:[place] Breast Im plant to Left BreaST Graft Fascia Nevin 2x3 48545 - [id number] Implanted:Qty: 1 on 03/20/2010 at OR [facility] Right: Eye IOP INC 06/06/2014 05069 / / [id number] Breast Implant 350-1697 Saline - [id number] Implanted:Qty: 1 on 04/20/2011 at OR [facility] Right: Breast MENTOR MADDIE 04/04/2015 350-1697 / [id number] / [id number] Description:[place] smooth ro und moderate profile saline. Envelope Antibacteral Tyrx - [id number] Implanted:Qty: 1 on 05/14/2024 by Zulema Giordano IV, MD at [facility] [employer] : CRM [id number] 01/30/2025 CMRM6 133 / / [id number] Defib [place] Mri Quad Quarter Inspector-D - [id number] Implanted:Qty: 1 on 05/14/2024 by Zulema Giordano IV, MD at [facility] [employer] [id number] 07/03/2025 [id number] / [id number] / [id number] S Ring Morcher Type 14a Mr-1410 - [id number] Implanted:Qty: 1 on 08/17/2024 by Frank Zuñiga MD at OR [facility] Right: Eye MORCHER [id number] 04/04/2026 MR-1410 / [id number] / [id number] Lens 17.5 [id number] - [id number] Implanted:Qty: 1 on 08/17/2024 by Frank Zuñiga MD at [facility] Right: Eye ANNABELLE : SURGICAL [id number] 03/15/2029 [id number] / [id number] / [id number] documented as of this encounter Visit [...] and were consensually agreed upon. Care Teams Assistant Printer Floor Covering Relationship Specialty Start Date End Date Rose Marie Galloway MD [address] [place] [address] [place] [phone] PCP - General Family Medicine 05/24/14 documented as of this encounter
--- OUTSIDE RECORDS SUMMARY | 2024-11-25 03:29 | External Medical Summary | Summary of Care ---
Author Name Unknown Organization [facility] Address [address] [place] [address] Phone [phone] Care Team Providers Care Manufacturing Lead Name Role Phone Rose Marie Galloway MD Primary Care Provide r Reason for Visit * Reason Comments Iol Measurement Encounter Details Date Type Department Care Team ([facility] st Contact Info) Description 07/23/2024 11:30 AM EDT Orders Only [address] [address] [facility] [address] [phone] Nuclear sclerosis of right eye*; Ruptured globe of both eyes, subsequent encounter Allergies Active Allergy Reactions Criticality Noted Date Comments Docetaxel 02/14/2011 Chest pain, passed out , could not talk, saw silver round bubbles documented as of this encounter (statuses as of 07/23/2024) Medications Medication Sig Dispensed Refills Start Date End Date Status OXYCODONE HCL 10 MG PO TABSIndications:pain as needed Take by mouth every 8 hours as needed . Active Vitamin D3 50 MCG (1999) Oral Capsule Take 1 Capsule by mouth in the morning. 30 Capsule 5 11/21/2022 Active Apixaban 5 MG Oral Tablet (Eliquis)Indications: Permanent atrial fibrillation (HCC) Take 1 Tablet by mouth 2 times a day. 180 Tablet 3 07/28/2023 Active Spironolactone 25 MG Oral Tablet (Aldactone)Indication s:HTN, goal below 140/90,Heart failure, systolic, with acute decompensation (HCC) Take 0.5 Tablets by mouth once a day on Friday, Friday, and Friday only. 09/26/2023 Active Furosemide 40 MG Oral Tablet (Lasix)Indications:Hy pokalemia,Heart failure, systolic, with acute decompensation (HCC) TAKE 1 TABLET EVERY OTHER DAY, OR DIRECTED 45 Tablet 3 11/12/2023 Active Jardiance 10 MG Oral Tablet (Empagliflozin)Indica tions:Systolic heart failure, chronic (HCC),Drug-induced cardiomyopathy (HCC),HTN, goal below 140/90 TAKE 1 TABLET BY MOUTH EVERY DAY IN THE MORNING 90 Tablet 3 11/12/2023 Active Levothyroxine Sodium 75 MCG Oral Tablet (Levoxyl)Indications: Hypothyroidism due to medication TAKE 1 TABLET BY MOUTH EVERY DAY AT LEAST 30 MIN BEFORE BREAKFAST OR OTHER MEDICATION 90 Tablet 3 05/06/2024 Active Metoprolol Succinate ER 100 MG Oral Tablet Extended Release 24 Hour (toPROL XL)Indications:Perman ent atrial fibrillation (HCC),Drug-induced cardiomyopathy (HCC),HTN, goal below 140/90 TAKE 1 TABLET BY MOUTH TWICE A DAY 180 Tablet 3 05/17/2024 Active Rosuvastatin Calcium 20 MG Oral Tablet (Crestor)Indications: Dyslipidemia, goal LDL below 100 TAKE 1 TABLET BY MOUTH EVERY DAY 90 Tablet 3 05/21/2024 Active documented as of this encounter (statuses as of 07/23/2024) Active Problems Problem Noted Date Diagnosed Date NICM (nonischemic cardiomyopathy) 04/19/2024 ICD (implantable cardioverter-defibrillator) in place 04/19/2024 Chronic kidney disease, stage 3b 11/18/2022 Overview: Per CKD protocol Osteoporosis, postmenopausal 11/05/2022 Permanent atrial fibrillation 11/05/2022 Peripheral vascular disease 10/23/2021 Hx of melanoma of skin 12/04/2020 Overview: 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, [place] II, 11/2020) Hypertensive heart and kidne y disease with chronic systolic congestive heart failure and stage 3b chronic kidney disease 10/10/2020 Biventricular implantable ca rdioverter-defibrillator (ICD) in situ 05/19/2018 Secondary renal hyperparathyroidism 03/12/2018 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 ADVANCE DIRECTIVE INFORMATION 07/01/2007 Overview: No, Advance Directive brochure given to patient 02/26/06. 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 Breast cancer 03/12/2018 Cervical cancer 12/28/2014 documented as of this encounter (statuses as of 07/23/2024) Immunizations Name Administration Dates Next Due COVID-19 mRNA, LNP-s, No Pre serve, 2-Dose Series (Moderna) 02/12/2021,01/15/2021 Pneumococcal Conjugate Vacci ne, 20-valent ([id number]) 11/21/2022 Pneumococcal Polysaccharide PPV23 (Pneumovax) 08/12/2006 Seasonal [...] money to get more. Never true 11/27/2023 Sex and Gender Information Value Date Recorded Sex Assigned at Female 11/26/2022 1:41 PM EST Gender Identity Female 11/26/2022 1:41 PM EST Sexual Orientation Straight 11/26/2022 1: 41 PM EST Job Start Date Occupation Industry Not on file Not on file Not on file documented as of this encounter Progress Notes * [employer] - 07/23/2024 11:31 AM EDT IOL measurements of right eye completed and scanned into the electronic medical record. Please refer to operative report for interpretation. documented in this encounter Plan of Treatment Upcoming Encounters Date Type Department Care Team (Latest Contact Info) Description 08/17/2024 9:07 AM [facility] Hospital Encounter [facility], Outpatient Surgery [address] [phone] Frank Zuñiga MD [address] [place] [phone] 08/17/2024 9:07 AM EST - 08/17/2024 10:08 AM EST Surgery [facility], Outpatient Surgery [address] [phone] Frank Zuñiga MD [address] [place] [phone] EXTRACAPSULAR CATARACT REMOVAL WITH INTRAOCULAR LENS 08/18/2024 9:15 AM EST Office Visit [address] [address] Frank Zuñiga MD [address] [place] [address] 08/24/2024 9:00 AM EST Office Visit [address] [address] Frank Zuñiga MD [address] [place] [address] 10/14/2024 2:45 PM EST Cardiac Studies Cardiac Studies [address] [place] [address] 11/30/2024 1:00 PM EST Nurse Only Ancillary [address] [place] [address] [place], Nurse Annual [address] [place] [address] 11/30/2024 2:40 PM EST Office Visit Family Medicine [address] [place] [phone] Marcela Ramirez CRNP [address] [place] [address] [place] [address] 12/28/2024 12:30 PM EDT Office Visit Cardiology [address] [place] [address] Graeme Pang PA-C [address] [place] [address] 12/29/2024 1:20 PM EDT Office Visit Dermatology [address] [place] [address] Mami Rodriguez PA-C [address] [place] [address] [place] [address] 06/21/2025 1:40 PM EDT Office Visit Family Medicine [address] [place] [phone] Rose Marie Galloway MD [address] [place] [address] [place] [address] Scheduled Procedures Name Priority Associated Diagnoses Date/Ti me EXTRACAPSULAR CATARACT REMOVAL WITH INTRAOCULAR LENS Nuclear sclerotic cataract of right eye 08/17/2024 9:07 AM EST Health Maintenance Due Date Last [...] Screening 11/27/2024 11/27/2023 CKD HGB USE SMARTSET 13934 05/14/202505/14, 11/12/2023, 11/12/2023, Additional history exists CKD PHOS USE SMARTSET 99533 05/25/2025 08/2 , 12/24/2022, 12/05/2021, Additional history exists TSH 05/25/2025 05/25/2024, 04/2024, 09/25/2023, Additional history exists Cologuard 08/21/2025 08/21/2022, 05/2022, 08/13/2022, Additional history exists Colorectal Cancer Screening 08/21/2025 Diabetes Screening 05/25/2027 05/25/2024, 0 05/14/2024, 11/12/2023, Additional history exists DTap/Tdap Vaccines (3 - Td or Tdap) 09/01/2028 09/01/2018, 03/14/2008 Lipid Panel 11/12/2028 11/12/2023, 12/05, 01/24/2022, Additional history exists Pap Smear Discontinued 03/26/2022, 03/06, 11/27/2015, Additional history exists Pneumococcal Vaccine: 65+ Years Completed 11/21/2022, 08/12/2006 VITAMIN D LEVEL ONCE IN A LIFETIME-USE SMARTSET# 87081 Completed 05/25/2024, 06/04/2023, 11/05/2022, Additional history exists [...] this encounter Medical Devices Implanted Type Area Call Center Coordinator Device Identifier Shelf Expiration Date Model / Serial / Lot Alloderm 6 X 16cm Implanted:Qty: 1 on 02/05/2007 at OR [facility] Right: Breast [employer] [id number] / [id number] / [id number] Description:Alloderm 6 x 16 cm to right breast [id number] - [id number] Implanted:Qty: 1 on 02/05/2007 at OR [facility] Left: Breast [employer] [id number] / [id number] / [id number] Description:ALLODERM TO left breast 6 x 16cm [place] Breast Implant Implanted:Qty: 1 on 02/05/2007 at OR [facility] [place] Right: Breast [employer]IE 08/06/2010 350-1697 / [id number] / [id number] Description:700ml Breast Imp lant to Right Breast [place] Breast Implant Implanted:Qty: 1 on 02/05/2007 at OR [facility] [place] Left: Breast [employer] 08/06/2010 350-1697 / [id number] / [id number] Description:[place] Breast Im plant to Left BreaST Graft Fascia Nevin 2x3 53970 - [id number] Implanted:Qty: 1 on 03/20/2010 at OR [facility] Right: Eye [employer] 06/06/2014 [id number] / / [id number] Breast Implant 350-1697 Saline - [id number] Implanted:Qty: 1 on 04/20/2011 at OR [facility] [facility] Right: Breast [employer]IE 04/04/2015 350-1697 / [id number] / [id number] Description:[place] smooth ro und moderate profile saline. Envelope Antibacteral Tyrx - [id number] Implanted:Qty: 1 on 05/14/2024 by Zuleam Giordano IV, MD at [facility]ARD[facility]S [facility] [employer] : CRM [id number] 01/30/2025 [id number] / / [id number] Defib [place] Mri Quad Technical Implementation Lead-D - [id number] Implanted:Qty: 1 on 05/14/2024 by Zulema Giordano IV, MD at [facility]S [facility] [employer] [id number] 07/03/2025 [id number] / [id number] / [id number] documented as of this encounter Procedures Procedure Name Priority Date/Time Associated Diagnosis Comments COMPUTERIZED CORNEAL PABLITO Routine 07/23/2024 Nuclear sclerosis of right eye Ruptured globe of both eyes, subsequent encounter IOL MEASUREMENTS, IOL MASTER Routine 07/23/2024 Nuclear sclerosis of right eye documented in this encounter Results * COMPUTERIZED CORNEAL PABLITO (07/23/2024) Frank Zuñiga MD MEDICINE Performing Organization Address City/[facility]/ZIP Co de Phone Number [facility] * IOL MEASUREMENTS, IOL MASTER (07/23/2024) Frank Zuñiga MD OTHER [facility] documented in this encounter Visit Diagnoses Diagnosis Nuclear sclerosis of right eye- Primary Ruptured globe of both eyes, subsequent encounter Nuclear sclerotic cataract of right eye Senile nuclear sclerosis documented in this encounter Advance Directives * Full Code (Latest Code Status on File) Date Activated Date Inactivated Comments 05/07/2022 9:34 [...] and were consensually agreed upon. Care Teams Manufacturing Lead Relationship Specialty Start Date End Date Rose Marie Galloway MD [address] [place] [address] [place] [address] PCP - General Family Medicine 05/24/14 documented as of this encounter
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
--- OUTSIDE RECORDS SUMMARY | 2024-11-25 03:29 | External Medical Summary | Summary of Care ---
Author Name Unknown Organization [facility] Address [address] [place] [address] Phone [phone] Care Team Providers Care Geoduck Diver Name Role Phone Rose Marie Galloway MD Primary Care Provide r Reason for Visit * Reason Onset Date Comments Appointment 05/25/2024 Upper/lower endo scopy Encounter Details Date Type Department Care Team (Late st Contact Info) Description 05/25/2024 Telephone Family [address] [phone] Rose Marie Galloway MD [address] [place] [address] [place] [address] Appointment (Upper/lower endoscopy ) Allergies Active Allergy Reactions Criticality Noted Date Comments Docetaxel 02/14/2011 Chest pain, passed out , could not talk, saw silver round bubbles documented as of this encounter (statuses as of 06/09/2024) Medications Medication Sig Dispensed Refills Start Date [...] as of this encounter (statuses as of 06/09/2024) Active Problems Problem Noted Date Diagnosed Date NICM (nonischemic cardiomyopathy) 04/19/2024 ICD (implantable cardioverter-defibrillator) in place 04/19/2024 Chronic kidney disease, stage 3b 11/18/2022 Overview: Per CKD protocol Osteoporosis, postmenopausal 11/05/2022 Permanent atrial fibrillation 11/05/2022 Peripheral vascular disease 10/23/2021 Hx of melanoma of skin 12/04/2020 Overview: 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, [place] II, 11/2020) Hypertensive heart and kidne y [...] 08/23/2014 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 ADVANCE DIRECTIVE INFORMATION 07/01/2007 Overview: No, Advance Directive brochure given to patient 02/26/06. group home current use of anticoagulant therapy 0 05/12/2006 Overview: ICD-10 update of inactive term History of breast cancer 03/28/2006 Family history of other cardiovascular diseases 05/14/2005 Overview: ICD-10 update of inactive term FAMILY HX-BREAST MALIG 05/14/2005 HTN, goal below 140/90 06/26/2001 Blindness of left eye documented as of this encounter (statuses as of 06/09/2024) Resolved Problems Problem Noted Date Diagnosed Date [...] as of this encounter (statuses as of 06/09/2024) Immunizations Name Administration Dates Next Due COVID-19 mRNA, LNP-s, No Pre serve, 2-Dose Series (Moderna) 02/12/2021,01/15/2021 Pneumococcal Conjugate Vacci ne, 20-valent ([id number]) 11/21/2022 Pneumococcal Polysaccharide PPV23 (Pneumovax) 08/12/2006 Seasonal Influenza, Trivalen t, (IIV3), with Preserv, (Fluzone) 10/13/2008,07/13/2007,08/12/2006,04/2003,08/09/2002 08/09/2003 TDAP (age 10 and [...] on file documented as of this encounter Miscellaneous Notes * Telephone Encounter - Diana Cheney OSA - 06/09/2024 11:23 AM EDT Unable to lm Letter sent BARBARA Balderas 06/09/2024 11:23 AM * Telephone Encounter - Diana Cheney OSA - 05/31/2024 1:41 PM EDT Unable to Lmm BARBARA Balderas 05/31/2024 1:41 PM * Telephone Encounter - Ekta Power OSA - 05/25/2024 4:16 PM EDT Kayce needs scheduled for upper/lower endoscopy for: Rapid weight loss [R63.4] - Primary Vomiting without nausea, unspecified vomiting type [R11.11] documented in this encounter Plan of Treatment Upcoming Encounters Date Type Department Care Team (Latest Contact Info) Description 07/23/2024 11:00 AM EDT Office Visit [address] [address] Lara Reagan CRNP [address] [place] [address] 07/23/2024 11:30 AM EDT Orders Only [address] [address] [place], Biometry Tech [address] [place] [address] 08/17/2024 9:07 AM EST Hospital Encounter [facility], Outpatient Surgery [address] [phone] Frank Zuñiga MD [address] [place] [address] 08/17/2024 9:07 AM EST - 08/17/2024 10:08 AM EST Surgery [facility], Outpatient Surgery [address] [phone] Frank Zuñiga MD [address] [place] [address] EXTRACAPSULAR CATARACT REMOVAL WITH INTRAOCULAR LENS 08/18/2024 9:15 AM EST Office Visit [address] [address] Frank Zuñiga MD [address] [place] [address] 08/24/2024 9:00 AM EST Office Visit [address] [address] Frank Zuñiga MD [address] [place] [address] 10/14/2024 2:45 PM EST Cardiac Studies Cardiac Studies [address] [place] [address] 11/30/2024 1:00 PM EST Nurse Only Ancillary [address] [place] [address] [place], Nurse Annual [address] [place] [address] 11/30/2024 2:40 PM EST Office Visit Family [address] [place] [phone] Marcela Ramirez CRNP [address] [place] [address] [place] [address] 12/28/2024 12:30 PM EDT Office Visit Cardiology [address] [place] [address] Graeme Pang PA-C [address] [facility] [place] [address] 12/29/2024 1:20 PM EDT Office Visit Dermatology [address] [place] [address] Mami Rodriguez PA-C [address] [place] [address] [place] [address] 06/21/2025 1:40 PM EDT Office Visit Family Medicine [address] [place] [phone] Rose Marie Galloway MD [address] [place] [address] [place] [address] Scheduled Procedures Name Priority Associated Diagnoses Date/Ti [...] Screening 11/27/2024 11/27/2023 CKD HGB USE SMARTSET 75434 05/14/202505/14, 11/12/2023, 11/12/2023, Additional history exists CKD PHOS USE SMARTSET 16600 05/25/2025 08/2 , 12/24/2022, 12/05/2021, Additional history [...] D LEVEL ONCE IN A LIFETIME-USE SMARTSET# 51069 Completed 05/25/2024, 06/04/2023, 11/05/2022, Additional history exists [...] this encounter Medical Devices Implanted Type Area Import/Export Agent Device Identifier Shelf Expiration Date Model / Serial / Lot Alloderm 6 X 16cm Implanted:Qty: 1 on 02/05/2007 at OR [facility] Right: Breast LIFE CELL MADDIE [id number] / [id number] / [id number] Description:Alloderm 6 x 16 cm to right breast [id number] - [id number] Implanted:Qty: 1 on 02/05/2007 at OR [facility] Left: Breast LIFE CELL MADDIE [id number] / [id number] / [id number] Description:ALLODERM TO left breast 6 x 16cm [place] Breast Implant Implanted:Qty: 1 on 02/05/2007 at OR [facility] Right: Breast MENTOR MADDIE 08/06/2010 350-1697 / [id number] / [id number] Description:700ml Breast Imp lant to Right Breast [place] Breast Implant Implanted:Qty: 1 on 02/05/2007 at OR [facility] Left: Breast MENTOR MADDIE 08/06/2010 350-1697 / [id number] / [id number] Description:[place] Breast Im plant to Left BreaST Graft Fascia Nevin 2x3 [id number] - [id number] Implanted:Qty: 1 on 03/20/2010 at OR [facility] Right: Eye [employer] 06/06/2014 [id number] / / [id number] Breast Implant 350-4027 Saline - [id number] Implanted:Qty: 1 on 04/20/2011 at OR [facility] Right: Breast MENTOR MADDIE 04/04/2015 350-1697 / [id number] / [id number] Description:[place] smooth ro und moderate profile saline. Envelope Antibacteral Tyrx - [id number] Implanted:Qty: 1 on 05/14/2024 by Zulema Giordano IV, MD at [facility] [employer] : CRM [id number] 01/30/2025 [id number] / / [id number] Defib [place] Mri Quad Air Bag Curer-D - [id number] Implanted:Qty: 1 on 05/14/2024 by Zulema Giordano IV, MD at [facility] [employer] [id number] 07/03/2025 [id number] / [id number] / [id number] S documented as of this encounter Advance Directives [...] and were consensually agreed upon. Care Teams Geoduck Diver Relationship Specialty Start Date End Date Rose Marie Galloway MD [address] [place] [address] [place] [address] PCP - General Family Medicine 05/24/14 documented as of this encounter
--- OUTSIDE RECORDS SUMMARY | 2024-11-25 03:29 | External Medical Summary | Summary of Care ---
Author Name Unknown Organization [facility] Address [address] [place] [address] Phone [phone] Care Team Providers Care Apprentice Funeral Director Name Role Phone Rose Marie Galloway MD Primary Care Provide r Reason for Visit * Reason Onset Date Comments Other 05/14/2024 Encounter Details Date Type Department Care Team ([facility] Contact Info) Description 05/14/[address] [address] Frank Zuñiga MD [address] [place] [phone] Other (/) Allergies Active Allergy Reactions Criticality Noted Date Comments Docetaxel 02/14/2011 Chest pain, passed out , could not talk, saw silver round bubbles documented as of this encounter (statuses as of 08/13/2024) Medications OXYCODONE HCL 10 MG PO TABSIndications:p ain as needed Take by mouth every 8 hours as needed . Active Vitamin D3 50 MCG (1999 UT) Oral Capsule Take 1 Capsule by mouth in the morning. 30 Capsule 5 11/21/19 23 Active Furosemide 40 MG Oral Tablet (Lasix)Indication s:Hypokalemia,Hea rt failure, systolic, with acute decompensation (HCC) TAKE 1 TABLET EVERY OTHER DAY, OR DIRECTED 45 Tablet 3 11/12/19 24 Active Jardiance 10 MG Oral Tablet (Empagliflozin)In [...] MEDICATION 90 Tablet 3 05/06/20 24 Active Apixaban 5 MG Oral Tablet (Eliquis)Indicati ons:Permanent atrial fibrillation (HCC) Take 1 Tablet by mouth 2 times a day. 180 Tablet 3 07/28/20 23 2023 Discontinued Spironolactone 25 MG Oral Tablet (Aldactone)Indica tions:HTN, goal below 140/90,Heart failure, systolic, with acute decompensation (HCC) Take 0.5 Tablets by mouth once a day on Friday, Friday, and Friday only. 09/26/20 23 2023 Discontinued documented as of this encounter (statuses as of 08/13/2024) Active Problems Problem Noted Date Diagnosed Date NICM (nonischemic cardiomyopathy) 04/19/2024 ICD (implantable cardioverter-defibrillator) in place 04/19/2024 Chronic kidney disease, stage 3b 11/18/2022 Overview: Per CKD protocol Osteoporosis, postmenopausal 11/05/2022 Permanent atrial fibrillation 11/05/2022 Peripheral vascular disease 10/23/2021 Hx of melanoma of skin 12/04/2020 Overview (12/04/2020): 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, [place] II, 11/2020) Hypertensive heart and kidne y [...] 08/23/2014 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 manager long term care current use of anticoagulant therapy 0 05/12/2006 Overview (07/07/2017): ICD-10 update of inactive term History of breast cancer 03/28/2006 Family history of other cardiovascular diseases 05/14/2005 Overview (12/28/2015): ICD-10 update of inactive term FAMILY HX-BREAST MALIG 05/14/2005 HTN, goal below 140/90 06/26/2001 Blindness of left eye documented as of this encounter (statuses as of 08/13/2024) Resolved Problems Problem Noted Date Diagnosed Date [...] as of this encounter (statuses as of 08/13/2024) Immunizations Name Administration Dates Next Due COVID-19 mRNA, LNP-s, No Pre serve, 2-Dose Series (Moderna) 02/12/2021,01/15/2021 Pneumococcal Conjugate Vacci ne, 20-valent ([id number]) 11/21/2022 Pneumococcal Polysaccharide PPV23 (Pneumovax) 08/12/2006 Seasonal [...] money to get more. Never true 11/27/2023 Comments No Sex and Gender Information Value Date Recorded Sex Assigned at Female 11/26/2022 1:41 PM EST Legal Sex Female 7:17 AM EST Gender Identity Female 11/26/2022 1:41 PM EST Sexual Orientation Straight 11/26/2022 1: 41 PM EST documented as of this encounter Miscellaneous Notes * Telephone Encounter - Marifer Ospina OSA - 05/14/2024 11:46 AM EDT Pt's daughter, Carine called. Pt has a pacemaker and defibrillator. Today is her procedure and they are replacing the unit only. They will have cardiology fax you what they did today. Also, any information you need on her pacemaker/defibrillator is in her chart. She said she has a BIVICG?? documented in this encounter Plan of Treatment Upcoming Encounters Date Type Department Care Team (Latest Contact Info) Description 08/17/2024 10:50 AM EST Hospital Encounter [facility], Outpatient Surgery [address] [phone] Frank Zuñiga MD [address] [place] [address] 08/17/2024 10:50 AM EST - 08/17/2024 11:51 AM EST Surgery [facility], Outpatient Surgery [address] [phone] Frank Zuñiga MD [address] [place] [address] EXTRACAPSULAR CATARACT REMOVAL WITH INTRAOCULAR LENS 08/18/2024 9:15 AM EST Office Visit [address] [address] Frank Zuñiga MD [address] [place] [address] 08/24/2024 9:15 AM EST Office Visit [address] [address] Frank Zuñiga MD [address] [place] [address] 10/14/2024 2:45 PM EST Cardiac Studies Cardiac Studies [address] [place] [address] 11/30/2024 1:00 PM EST Nurse Only Ancillary [address] [place] [address] [place], Nurse [address] [place] [address] 11/30/2024 2:40 PM EST Office Visit Family Medicine [address] [place] [phone] Marcela Ramirez [address] [place] [address] 12/28/2024 12:30 PM EDT Office Visit Cardiology [address] [place] [address] Graeme Pang PA-C [address] [place] [address] 12/29/2024 1:20 PM EDT Office Visit Dermatology [address] [place] [address] Mami oRdriguez PA-C [address] [place] [address] [place] [address] 06/21/2025 1:40 PM EDT Office Visit Family Medicine [address] [place] [phone] Rose Marie Galloway MD [address] [place] [address] [place] [address] Scheduled Procedures Name Priority Associated Diagnoses Date/Ti me EXTRACAPSULAR CATARACT REMOVAL WITH INTRAOCULAR LENS Nuclear sclerotic cataract of right eye 08/17/2024 10:50 AM EST Health Maintenance Due Date Last [...] Screening 11/27/2024 11/27/2023 CKD HGB USE SMARTSET 28525 05/14/202505/14, 11/12/2023, 11/12/2023, Additional history exists CKD PHOS USE SMARTSET 20191 05/25/202505/07, 12/24/2022, 12/05/2021, Additional history exists TSH [...] D LEVEL ONCE IN A LIFETIME-USE SMARTSET# 21824 Completed 05/25/2024, 06/04/2023, 11/05/2022, Additional history exists [...] this encounter Medical Devices Implanted Type Area Environmental Adviser Device Identifier Shelf Expiration Date Model / Serial / Lot Alloderm 6 X 16cm Implanted:Qty: 1 on 02/05/2007 at OR [facility] Right: Breast [employer] MADDIE [id number] / [id number] / [id number] Description:Alloderm 6 x 16 cm to right breast [id number] - [id number] Implanted:Qty: 1 on 02/05/2007 at OR [facility] Left: Breast LIFE CELL MADDIE [id number] / [id number] / [id number] Description:ALLODERM TO left breast 6 x 16cm [place] Breast Implant Implanted:Qty: 1 on 02/05/2007 at OR [facility] Right: Breast MENTOR MADDIE 08/06/2010 350-1697 / [id number] / [id number] Description:700ml Breast Imp lant to Right Breast [place] Breast Implant Implanted:Qty: 1 on 02/05/2007 at OR [facility] Left: Breast MENTOR MADDIE 08/06/2010 350-1697 / [id number] / [id number] Description:[place] Breast Im plant to Left BreaST Graft Fascia Nevin 2x3 13930 - [id number] Implanted:Qty: 1 on 03/20/2010 at OR [facility] Right: Eye [employer] 06/06/2014 [id number] / / [id number] Breast Implant 350-1697 Saline - [id number] Implanted:Qty: 1 on 04/20/2011 at OR [facility] Right: Breast MENTOR MADDIE 04/04/2015 350-1697 / [id number] / [id number] Description:[place] smooth ro und moderate profile saline. Envelope Antibacteral Tyrx - [id number] Implanted:Qty: 1 on 05/14/2024 by Zulema Giordano IV, MD at [facility]ARDI[facility] LABS [facility] [employer] : CRM [id number] 01/30/2025 [id number] / / [id number] [id number] [place] Mri Quad Post Production Assistant-D - [id number] Implanted:Qty: 1 on 05/14/2024 by Zulema Giordano IV, MD at [facility] LABS [facility] [employer] [id number] 07/03/2025 [id number] / [id number] / [id number] documented as of this encounter Advance [...] and were consensually agreed upon. Care Teams Apprentice Funeral Director Relationship Specialty Start Date End Date Rose Marie Galloway MD [address] [place] [address] [place] [phone] PCP - General Family Medicine 05/24/14 documented as of this encounter
--- OUTSIDE RECORDS SUMMARY | 2024-11-25 03:29 | External Medical Summary | Summary of Care ---
Author Name Unknown Organization [facility] Address [address] [place] [address] Phone [phone] Care Team Providers Care Diesel Engine Tester Name Role Phone Rose Marie Galloway MD Primary Care Provide r Reason for Referral * Evaluate & Treat - Unlimited Visits (Within 10 days (routine)) - Authorized Specialty Diagnoses / Procedures Referred By Contrufina t Referred To Contact Endocrinology/Metabolism / Endocrinology Diagnoses Hypercalcemia Elevated PTHrP level Rose Marie Galloway MD [address] [place] [address] [place] [address] Referral ID Status Reason Start Date Expiration Date Visits Requested Visits Authorized [id number] Authorized Specialty Services Required 05/27/[phone] Question Answer Referral Priority Within 10 days (routine) Where should this appointment be scheduled? [facility] For what condition is the patient being referred? Calcium and Bone For which calcium and bone condition are you referring? Hypercalcemia Comments Mild hypercalcemia, elevated PTH. Rapid weight loss Reason for Visit * Reason Onset Date Comments Test Results 05/26/2024 Appointment 05/26/2024 Endocrinology Encounter Details Date Type Department Care Team ([facility] st Contact Info) Description 05/26/2024 Telephone Family Medicine [address] [place] [phone] Rose Marie Galloway MD [address] [place] [address] [place] [phone] Test Results; Appointment (Endocrinology ) Allergies Active Allergy Reactions Criticality Noted Date Comments Docetaxel 02/14/2011 Chest pain, passed out , could not talk, saw silver round bubbles documented as of this encounter (statuses as of 06/08/2024) Medications Medication Sig Dispensed Refills Start Date [...] as of this encounter (statuses as of 06/08/2024) Active Problems Problem Noted Date Diagnosed Date NICM (nonischemic cardiomyopathy) 04/19/2024 ICD (implantable cardioverter-defibrillator) in place 04/19/2024 Chronic kidney disease, stage 3b 11/18/2022 Overview: Per CKD protocol Osteoporosis, postmenopausal 11/05/2022 Permanent atrial fibrillation 11/05/2022 Peripheral vascular disease 10/23/2021 Hx of melanoma of skin 12/04/2020 Overview: 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, [place] II, 11/2020) Hypertensive heart and kidne y [...] 08/23/2014 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 ADVANCE DIRECTIVE INFORMATION 07/01/2007 Overview: No, Advance Directive brochure given to patient 02/26/06. terminal supervisor current use of anticoagulant therapy 0 05/12/2006 Overview: ICD-10 update of inactive term History of breast cancer 03/28/2006 Family history of other cardiovascular diseases 05/14/2005 Overview: ICD-10 update of inactive term FAMILY HX-BREAST MALIG 05/14/2005 HTN, goal below 140/90 06/26/2001 Blindness of left eye documented as of this encounter (statuses as of 06/08/2024) Resolved Problems Problem Noted Date Diagnosed Date [...] as of this encounter (statuses as of 06/08/2024) Immunizations Name Administration Dates Next Due COVID-19 mRNA, LNP-s, No Pre serve, 2-Dose Series (Moderna) 02/12/2021,01/15/2021 Pneumococcal Conjugate Vacci ne, 20-valent ([id number]) 11/21/2022 Pneumococcal Polysaccharide PPV23 (Pneumovax) 08/12/2006 Seasonal Influenza, Trivalen t, (IIV3), with Preserv, (Fluzone) 10/13/2008,07/13/2007,08/12/2006 TDAP (age 10 and older)(Boostrix) [...] encounter Miscellaneous Notes * Telephone Encounter - Tonio Greenwood OSA - 06/08/2024 1:15 PM EDT 06/08/2024- I had pt scheduled at [facility] with Patsy Cheung PA-C 06/22/24 at 3:00 pm. I calledthem back and cx'd the appt. Per Graeme Pang, he wants pt seen in [place]. Kayce is aware that someone from scheduling will call her w/ an appt for [place]. * Telephone Encounter - Ekta Power OSA - 05/27/2024 11:03 AM EDT Kayce needs scheduled with Endocrinology for: Hypercalcemia [E83.52] - Primary Elevated PTHrP level [R79.89] Comments Mild hypercalcemia, elevated PTH. Rapid weight loss * Telephone Encounter - Rose Marie Galloway MD - 05/27/2024 8:39 AM EDT Signed * Telephone Encounter - Nehal Stoll LPN - 05/26/2024 4:34 PM EDT Pt aware and agrees to see Endocrinology. Thanks. * Telephone Encounter - Rose Marie Galolway MD - 05/26/2024 3:16 PM EDT Please let patient know that her labs are good and potassium is back to normal except her calcium is still slightly high. I added some more tests to the blood that was already drawn. I would recommend she see an office helper since her calcium keeps going high and she has had the high PTH. Will sign referral if she agrees. documented in this encounter Plan of Treatment Upcoming Encounters Date Type Department Care Team (Latest Contact Info) Description 07/23/2024 11:00 AM EDT Office Visit [facility] [address] [address] Lara Reagan CRNP [address] [place] [address] 07/23/2024 11:30 AM EDT Orders Only [address] [address] [place], Biometry Tech [address] [place] [address] 08/17/2024 9:07 AM EST Hospital Encounter [facility], Outpatient Surgery [address] [phone] Frank Zuñiga MD [address] [place] [address] 08/17/2024 9:07 AM EST - 08/17/2024 10:08 AM EST Surgery [facility], Outpatient Surgery [address] [phone] Frank Zuñiga MD [address] [place] [address] EXTRACAPSULAR CATARACT REMOVAL WITH INTRAOCULAR LENS 08/18/2024 9:15 AM EST Office Visit [address] [address] Frank Zuñiga MD [address] [place] [address] 08/24/2024 9:00 AM EST Office Visit [address] [address] Frank Zuñiga MD [address] [place] [address] 10/14/2024 2:45 PM EST Cardiac Studies Cardiac Studies [address] [place] [address] 11/30/2024 1:00 PM EST Nurse Only Ancillary [address] [place] [address] [place], Nurse Annual [address] [place] [address] 11/30/2024 2:40 PM EST Office Visit Family Medicine [address] [place] [phone] Marcela Ramirez CRNP [address] [place] [address] [place] [address] 12/28/2024 12:30 PM EDT Office Visit Cardiology [address] [place] [address] Graeme Pang PA-C [address] [place] [address] 12/29/2024 1:20 PM EDT Office Visit Dermatology [address] [place] [address] Mami Rodriguez PA-C [address] [place] [address] [place] [address] 06/21/2025 1:40 PM EDT Office Visit Family [address] [place] [phone] Rose Marie Galloway MD [address] [place] [address] [place] [address] Scheduled Orders Name Type Priority Associated Diagnoses Orde r Schedule CALCIUM, IONIZED Lab Routine Hypercalcemia Expected: 05/26/2024 (Approximate), Expires: 05/26/2025 Scheduled Procedures Name Priority Associated Diagnoses Date/Ti me EXTRACAPSULAR CATARACT REMOVAL WITH INTRAOCULAR LENS Nuclear sclerotic cataract of right eye 08/17/2024 9:07 AM EST Scheduled Referrals Name Type Priority Associated Diagnoses Order Schedule ADULT ENDOCRINOLOGY REFERRAL OP Referral Within 10 days (routine) Hypercalcemia Elevated PTHrP level Ordered: 05/27/2024 Health Maintenance Due Date Last Done Comments [...] Screening 11/27/2024 11/27/2023 CKD HGB USE SMARTSET 44879 05/14/202505/14, 11/12/2023, 11/12/2023, Additional history exists CKD PHOS USE SMARTSET 38134 05/25/2025 08/2 , 12/24/2022, 12/05/2021, Additional history [...] D LEVEL ONCE IN A LIFETIME-USE SMARTSET# 12167 Completed 05/25/2024, 06/04/2023, 11/05/2022, Additional history exists [...] this encounter Medical Devices Implanted Type Area Chemist Helper Device Identifier Shelf Expiration Date Model / Serial / Lot Alloderm 6 X 16cm Implanted:Qty: 1 on 02/05/2007 at [place] [facility] Right: Breast LIFE CELL MADDIE [id number] / [id number] / [id number] Description:Alloderm 6 x 16 cm to right breast [id number] - [id number] Implanted:Qty: 1 on 02/05/2007 at OR [facility] Left: Breast LIFE CELL MADDIE [id number] / [id number] / [id number] Description:ALLODERM TO left breast 6 x 16cm [place] Breast Implant Implanted:Qty: 1 on 02/05/2007 at OR [facility] Right: Breast MENTOR MADDIE 08/06/2010 350-1697 / [id number] / [id number] Description:700ml Breast Imp lant to Right Breast [place] Breast Implant Implanted:Qty: 1 on 02/05/2007 at OR [facility] Left: Breast MENTOR MADDIE 08/06/2010 350-1697 / [id number] / [id number] Description:[place] Breast Im plant to Left BreaST Graft Fascia Nevin 2x3 [id number] - [id number] Implanted:Qty: 1 on 03/20/2010 at OR [facility] Right: Eye [employer] 06/06/2014 [id number] / / [id number] Breast Implant 350-1697 Saline - [id number] Implanted:Qty: 1 on 04/20/2011 at OR [facility] Right: Breast MENTOR MADDIE 04/04/2015 350-1697 / [id number] / [id number] Description:[place] smooth ro und moderate profile saline. Envelope Antibacteral Tyrx - [id number] Implanted:Qty: 1 on 05/14/2024 by Zulema Giordano IV, MD at [facility] [employer] : CRM [id number] 01/30/2025 [id number] / / [id number] Defib [place] Mri Quad Guest Relations Coordinator-D - [id number] Implanted:Qty: 1 on 05/14/2024 by Zulema Giordano IV, MD at [facility] [employer] [id number] 07/03/2025 [id number] / [id number] / [id number] documented as of this encounter Results * 25-HYDROXY VITAMIN D (05/25/2024 3:33 PM EDT) 25-Hydroxy Vitamin D 65 >19 ng/mL 05/26/2024 4:56 PM EDT [facility] Blood Venous blood specimen / Unknown Venipuncture / Unknown 05/25/2024 3:33 PM EDT 05/25/2024 3:33 PM EDT Narrative [facility] - 05/26/2024 4:56 PM EDT Deficient: <20 ng/mL Insufficient: 20-29 ng/mL Recommended/Optimum:30-50 ng/mL Vitamin D intoxication is rare. If suspicious of Vitamin D toxicity, evaluation of serum Calcium and PTH is recommended. Rose Marie Galloway MD LAB BLOOD ORD ERABLES [facility] [address] [place] [address] * PTH (05/25/2024 3:33 PM EDT) PTH 36 15 - 65 pg/mL 05/26/2024 4:56 PM EDT [facility] Blood Venous blood specimen / Unknown Venipuncture / Unknown 05/25/2024 3:33 PM EDT 05/25/2024 3:33 PM EDT Rose Marie Galloway MD LAB BLOOD ORD ERABLES [facility] [address] [facility] [place] [id number] documented in this encounter Visit Diagnoses Diagnosis Hypercalcemia- Primary Elevated PTHrP level Unspecified disorder of parathyroid gland Nuclear sclerotic cataract of right eye Senile [...] and were consensually agreed upon. Care Teams Diesel Engine Tester Relationship Specialty Start Date End Date Rose Marie Galloway MD [address] [place] [address] [place] [address] PCP - General Family Medicine 05/24/14 documented as of this encounter
--- OUTSIDE RECORDS SUMMARY | 2024-11-25 03:29 | External Medical Summary | Summary of Care ---
Author Name Unknown Organization [facility] Address [address] [place] [address] Phone [phone] Care Team Providers Care Ball Points Inspector Name Role Phone Rose Marie Galloway MD Primary Care Provide r Reason for Referral * Evaluate & Treat - Unlimited Visits (Within 10 days (routine)) - Authorized Specialty Diagnoses / Procedures Referred By Contrufina t Referred To Contact Endocrinology/Metabolism / Endocrinology Diagnoses Hypercalcemia Elevated PTHrP level Rose Marie Galloway MD [address] [place] [address] [place] [address] Referral ID Status Reason Start Date Expiration Date Visits Requested Visits Authorized [id number] Authorized Specialty Services Required 05/27/2024 999 999 [...] Encounter Details Date Type Department Care Team ([facility] st Contact Info) Description 05/26/2024 Telephone Family Medicine [address] [place] [phone] Rose Marie Galloway MD [address] [place] [address] [place] [phone] Test Results; Appointment (Endocrinology ) Allergies Active [...] 12/04/2020 Overview: 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, [place] II, 11/2020) Hypertensive heart and kidne y [...] 08/23/2014 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 ADVANCE DIRECTIVE INFORMATION 07/01/2007 Overview: No, Advance Directive brochure given to patient 02/26/06. 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 Can someone please call Kayce to help her get scheduled. I told to be expecting a phone call. Thank you. * Telephone Encounter - Tonio Greenwood OSA - 06/08/2024 1:15 PM EDT 06/08/2024- I had pt scheduled at [facility] with Patsy Cheung PA-C 06/22/24 at 3:00 pm. I calledthem back and cx'd the appt. Per Graeme Pang, he wants pt seen in [place]. Kayce is aware that someone from scheduling [...] Thanks. * Telephone Encounter - Rose Marie Galloway MD - 05/26/2024 3:16 PM EDT Please let patient know that her labs are good and potassium is back to normal except her calcium is still slightly high. I added some more tests to the blood that was already drawn. I would recommend she see an financial sales assistant since her calcium keeps going high and she has had the high PTH. Will sign referral if she agrees. documented in this encounter Plan of Treatment Upcoming Encounters Date Type Department Care Team (Latest Contact Info) Description 07/23/2024 11:00 AM EDT Office Visit [address] [address] Lraa Reagan CRNP [address] [place] [address] 07/23/2024 11:30 AM EDT Orders Only [address] [address] [place], Biometry Tech [address] [place] [address] 08/17/2024 9:07 AM EST Hospital Encounter [facility], Outpatient Surgery [address] [phone] Frank Zuñiga MD [address] [place] [address] 08/17/2024 9:07 AM EST - 08/17/2024 10:08 AM EST Surgery [facility], Outpatient Surgery [address] [phone] Frank Zuñiga MD [address] [place] [address] EXTRACAPSULAR CATARACT REMOVAL WITH INTRAOCULAR LENS 08/18/2024 9:15 AM EST Office Visit [address] [address] Frank Zuñiga MD [address] [place] [address] 08/24/2024 9:00 AM EST Office Visit [facility] [address] [place] [address] Frank Zuñiga MD [address] [place] [address] 10/14/2024 2:45 PM EST Cardiac Studies Cardiac Studies [address] [place] [address] 11/30/2024 1:00 PM EST Nurse Only Ancillary [address] [place] [address] [place], Nurse [address] [place] [address] 11/30/2024 2:40 PM EST Office Visit [address] [place] [phone] Marcela Ramirez CRNP [address] [place] [address] [place] [address] 12/28/2024 12:30 PM EDT Office Visit Cardiology [address] [place] [address] Graeme Pang PA-C [address] [place] [address] 12/29/2024 1:20 PM EDT Office Visit Dermatology [address] [place] [address] Mami Rodriguez PA-C [address] [place] [address] [place] [address] 06/21/2025 1:40 PM EDT Office Visit Family [address] [place] [phone] Rose Marie Galloway MD [address] [place] [address] [place] [address] Scheduled Orders Name Type Priority Associated Diagnoses [...] Screening 11/27/2024 11/27/2023 CKD HGB USE SMARTSET 99520 05/14/202505/14, 11/12/2023, 11/12/2023, Additional history exists CKD PHOS USE SMARTSET 36085 05/25/2025 08/2 , 12/24/2022, 12/05/2021, Additional history [...] D LEVEL ONCE IN A LIFETIME-USE SMARTSET# 80105 Completed 05/25/2024, 06/04/2023, 11/05/2022, Additional history exists [...] this encounter Medical Devices Implanted Type Area Boot Liner Maker Device Identifier Shelf Expiration Date Model / Serial / Lot Alloderm 6 X 16cm Implanted:Qty: 1 on 02/05/2007 at OR [facility] Right: Breast LIFE CELL MADDIE [id number] / [id number] / [id number] Description:Alloderm 6 x 16 cm to right breast [id number] - [id number] Implanted:Qty: 1 on 02/05/2007 at OR [facility] Left: Breast LIFE CELL MADDIE [id number] / [id number] / [id number] Description:ALLODERM TO left breast 6 x 16cm Lakeside Breast Implant Implanted:Qty: 1 on 02/05/2007 at OR [facility] Right: Breast MENTOR MADDIE 08/06/2010 350-1697 / [id number] / [id number] Description:700ml Breast Imp lant to Right Breast Lakeside Breast Implant Implanted:Qty: 1 on 02/05/2007 at OR [facility] Left: Breast MENTOR MADDIE 08/06/2010 350-1697 / [id number] / [id number] Description:Lakeside Breast Im plant to Left BreaST Graft Fascia Nevin 2x3 83222 - [id number] Implanted:Qty: 1 on 03/20/2010 at OR [facility] Right: Eye [employer] 06/06/2014 16452 / / [id number] Breast Implant 350-1697 Saline - [id number] Implanted:Qty: 1 on 04/20/2011 at OR [facility] Right: Breast MENTOR MADDIE 04/04/2015 350-1697 / [id number] / [id number] Description:Lakeside smooth ro und moderate profile saline. Envelope Antibacteral Tyrx - [id number] Implanted:Qty: 1 on 05/14/2024 by Zulema Giordano IV, MD at [facility] [employer] : CRM [id number] 01/30/2025 [id number] / / [id number] Defib Casper Mri Quad Lining Finisher-D - [id number] Implanted:Qty: 1 on 05/14/2024 by Zulema Giordano IV, MD at [facility] [employer] [id number] 07/03/2025 [id number] / [id number] / [id number] documented as of this encounter Results * 25-HYDROXY VITAMIN D (05/25/2024 3:33 PM EDT) 25-Hydroxy Vitamin D 65 >19 ng/mL 05/26/2024 4:56 PM EDT LABORATORY [facility] Blood Venous blood specimen / Unknown Venipuncture / Unknown 05/25/2024 3:33 PM EDT 05/25/2024 3:33 PM EDT Narrative LAB[facility]ATORY [facility] - 05/26/2024 4:56 PM EDT Deficient: <20 ng/mL Insufficient: 20-29 ng/mL Recommended/Optimum:30-50 ng/mL Vitamin D intoxication is rare. If suspicious of Vitamin D toxicity, evaluation of serum Calcium and PTH is recommended. Rose Marie Galloway MD LAB BLOOD ORD ERABLES LABORATORY [facility] [address] [place] [address] * PTH (05/25/2024 3:33 PM EDT) PTH 36 15 - 65 pg/mL 05/26/2024 4:56 PM EDT LABORATORY [facility] Blood Venous blood specimen / Unknown Venipuncture / Unknown 05/25/2024 3:33 PM EDT 05/25/2024 3:33 PM EDT Rose Marie Galloway MD LAB BLOOD ORD ERABLES LABORATORY [facility] [address] [place] [address] documented in this encounter Visit Diagnoses Diagnosis [...] and were consensually agreed upon. Care Teams Ball Points Inspector Relationship Specialty Start Date End Date Rose Marie Galloway MD [address] [place] [address] [place] [address] PCP - General Family Medicine 05/24/14 documented as of this encounter
--- OUTSIDE RECORDS SUMMARY | 2024-11-25 03:29 | External Medical Summary | Summary of Care ---
Author Name Unknown Organization [facility] Address [address] [place] [address] Phone [phone] Care Team Providers Care Marble Worker Name Role Phone Rose Marie Galloway MD Primary Care Provide r Reason for Visit * Reason Comments eRx-Medication Refill Encounter Details Date Type Department Care Team ([facility] st Contact Info) Description 08/10/2024 Refill Cardiology, [facility] [address] [place] [address] Kaila Shirley CRNP [address] [place] [address] HTN, goal below 140/90; Heart failure, systolic, with acute decompensation (HCC) Allergies Active Allergy Reactions Criticality Noted Date Comments Docetaxel 02/14/2011 Chest pain, passed out , could not talk, saw silver round bubbles documented as of this encounter (statuses as of 08/12/2024) Medications Medication Sig Dispensed Refills Start Date End Date Status OXYCODONE HCL 10 MG PO TABSIndications:susan n as needed Take by mouth every 8 hours as needed . Active Vitamin D3 50 MCG (1999 UT) Oral Capsule Take 1 Capsule by mouth in the morning. 30 Capsule 5 3 Active Furosemide 40 MG Oral Tablet (Lasix)Indications: Hypokalemia,Heart failure, systolic, with acute decompensation (HCC) TAKE 1 TABLET EVERY OTHER DAY, OR DIRECTED 45 Tablet 3 4 Active Jardiance 10 MG Oral Tablet (Empagliflozin)Mariela cations:Systolic heart failure, chronic (HCC),Drug-induced cardiomyopathy (HCC),HTN, goal below 140/90 TAKE 1 TABLET BY MOUTH EVERY DAY IN THE MORNING 90 Tablet 3 4 Active Levothyroxine Sodium 75 MCG Oral Tablet (Levoxyl)Indication s:Hypothyroidism due to medication TAKE 1 TABLET BY MOUTH EVERY DAY AT LEAST 30 MIN BEFORE BREAKFAST OR OTHER MEDICATION 90 Tablet 3 4 Active Metoprolol Succinate ER 100 MG Oral Tablet Extended Release 24 Hour (toPROL XL)Indications:Perm anent atrial fibrillation (HCC),Drug-induced cardiomyopathy (HCC),HTN, goal below 140/90 TAKE 1 TABLET BY MOUTH TWICE A DAY 180 Tablet 3 4 Active Rosuvastatin Calcium 20 MG Oral Tablet (Crestor)Indication s:Dyslipidemia, goal LDL below 100 TAKE 1 TABLET [...] 4 Active Eliquis 5 MG Oral Tablet (Apixaban)Indicatio ns:Permanent atrial fibrillation (HCC) TAKE 1 TABLET BY MOUTH TWICE A DAY 180 Tablet 1 4 Active Spironolactone 25 MG Oral Tablet (Aldactone)Indicati ons:HTN, goal below 140/90,Heart failure, systolic, with acute decompensation (HCC) Take 0.5 Tablets by mouth once a day on Friday, Friday, and Friday only. 19 Tablet 3 4 Active Spironolactone 25 MG Oral Tablet (Aldactone)Indicati ons:HTN, goal below 140/90,Heart failure, systolic, with acute decompensation (HCC) Take 0.5 Tablets by mouth once a day on Friday, Friday, and Friday only. 3 08/12/20 24 Discontinued documented as of this encounter (statuses as of 08/12/2024) Active Problems Problem Noted Date Diagnosed Date NICM (nonischemic cardiomyopathy) 04/19/2024 ICD (implantable cardioverter-defibrillator) in place 04/19/2024 Chronic kidney disease, stage 3b 11/18/2022 Overview: Per CKD protocol Osteoporosis, postmenopausal 11/05/2022 Permanent atrial fibrillation 11/05/2022 Peripheral vascular disease 10/23/2021 Hx of melanoma of skin 12/04/2020 Overview: 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, [place] II, 11/2020) Hypertensive heart and kidne y [...] 08/23/2014 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 11/21/2022 ADVANCE DIRECTIVE INFORMATION 07/01/2007 08/09/2024 Overview: No, Advance Directive brochure given to [...] as of this encounter (statuses as of 08/12/2024) Immunizations Name Administration Dates Next Due COVID-19 mRNA, LNP-s, No Pre serve, 2-Dose Series (Moderna) 02/12/2021,01/15/2021 Pneumococcal Conjugate Vacci ne, 20-valent ([id number]) 11/21/2022 Pneumococcal Polysaccharide PPV23 (Pneumovax) 08/12/2006 Seasonal [...] encounter Miscellaneous Notes * Telephone Encounter - Des Pang PA-C - 08/12/2024 4:55 PM ESTSigned Prescriptions: Disp Refills Spironolactone 25 MG Oral Tablet (Aldacton*19 Tab*3 Sig: Take 0.5 Tablets by mouth once a day on Friday, Friday, and Friday only. Authorizing Provider: DES PANG * Telephone Encounter - Marcelino Hines LPN - 08/12/2024 4:35 PM EST Did you pend patient's preferred pharmacy and medication before forwarding?yes Pharmacy: [id number] Pending Prescriptions: Disp Refills Spironolactone 25 MG Oral Tablet (Aldacto*19 Tab*3 Sig: Take 0.5 Tablets by mouth once a day on Friday, Friday, and Friday only. Last Visit: 06/08/24 (in office), Visit date not found (telemedicine) Next Visit: 12/28/24 If no future appointments scheduled, and last appointment is greater than a year ago, please schedule patient for a follow-up appointment Last date the medication was ordered: 09/26/23 Is this request for a controlled substance?No [...] 08:56 AM HGBA1C 5.5 07/23/2012 09:11 AM * Telephone Encounter - Interface, E-Rx Ss Inbound - 08/12/2024 4:15 PM EST Pending Prescriptions: Disp Refills Spironolactone 25 MG Oral Tablet [Pharmacy*90 Tab*3 Sig: TAKE 1 TABLET BY MOUTH EVERY DAY IN THE MORNING documented in this encounter Plan of Treatment Upcoming Encounters Date Type Department Care Team (Latest Contact Info) Description 08/17/2024 10:50 AM EST Hospital Encounter [facility], Outpatient Surgery [address] [phone] Frank Zuñiga MD [address] [place] [address] 08/17/2024 10:50 AM EST - 08/17/2024 11:51 AM EST Surgery [facility], Outpatient Surgery [address] [phone] Frank Zuñiga MD [address] [place] [address] EXTRACAPSULAR CATARACT REMOVAL WITH INTRAOCULAR LENS 08/18/2024 9:15 AM EST Office Visit [address] [address] Frank Zuñiga MD [address] [place] [address] 08/24/2024 9:15 AM EST Office Visit [address] [address] Frank Zuñiga MD [address] [place] [address] 10/14/2024 2:45 PM EST Cardiac Studies Cardiac Studies [address] [place] [address] 11/30/2024 1:00 PM EST Nurse Only Ancillary [address] [place] [address] [place], Nurse [address] [place] [address] 11/30/2024 2:40 PM EST Office Visit Family [address] [place] [phone] Marcela Ramirez [address] [place] [address] 12/28/2024 12:30 PM EDT Office Visit Cardiology [address] [place] [address] Des Pang PA-C [address] [facility] [place] [address] 12/29/2024 1:20 PM EDT Office Visit Dermatology [address] [place] [address] Mami Rodriguez PA-C [address] [place] [address] [place] [address] 06/21/2025 1:40 PM EDT Office Visit Family [address] [place] [phone] Rose Marie Galloway MD [address] [place] [address] [place] [address] Scheduled Procedures Name Priority [...] Screening 11/27/2024 11/27/2023 CKD HGB USE SMARTSET 50090 05/14/202505/14, 11/12/2023, 11/12/2023, Additional history exists CKD PHOS USE SMARTSET 50115 05/25/2025 08/2 , 12/24/2022, 12/05/2021, Additional history [...] D LEVEL ONCE IN A LIFETIME-USE SMARTSET# 77323 Completed 05/25/2024, 06/04/2023, 11/05/2022, Additional history exists [...] this encounter Medical Devices Implanted Type Area Museum Curator Device Identifier Shelf Expiration Date Model / Serial / Lot Alloderm 6 X 16cm Implanted:Qty: 1 on 02/05/2007 at [place] [facility] Right: Breast LIFE CELL MADDIE [id number] / [id number] / [id number] Description:Alloderm 6 x 16 cm to right breast [id number] - [id number] Implanted:Qty: 1 on 02/05/2007 at [place] [facility] Left: Breast LIFE CELL MADDIE [id number] / [id number] / [id number] Description:ALLODERM TO left breast 6 x 16cm Sims Breast Implant Implanted:Qty: 1 on 02/05/2007 at [place] [facility] Right: Breast MENTOR MADDIE 08/06/2010 350-1697 / [id number] / [id number] Description:700ml Breast Imp lant to Right Breast Sims Breast Implant Implanted:Qty: 1 on 02/05/2007 at [place] [facility] Left: Breast MENTOR MADDIE 08/06/2010 350-1697 / [id number] / [id number] Description:Sims Breast Im plant to Left BreaST Graft Fascia Nevin 2x3 39124 - [id number] Implanted:Qty: 1 on 03/20/2010 at OR [facility] Right: Eye [employer] 06/06/2014 98934 / / [id number] Breast Implant 350-1697 Saline - [id number] Implanted:Qty: 1 on 04/20/2011 at [place] [facility] Right: Breast MENTOR MADDIE 04/04/2015 350-1697 / [id number] / [id number] Description:Sims smooth ro und moderate profile saline. Envelope Antibacteral Tyrx - [id number] Implanted:Qty: 1 on 05/14/2024 by Zulema Giordano IV, MD at [facility] [employer] : CRM [id number] 01/30/2025 [id number] 133 / / [id number] Defib Joaquin Mri Quad Gold Leaf Printer-D - [id number] Implanted:Qty: 1 on 05/14/2024 by Zulema Giordano IV, MD at [facility] [employer] [id number] 07/03/2025 [id number] / [id number] / [id number] documented as of this encounter Visit Diagnoses Diagnosis HTN, goal below 140/90 Unspecified essential hypertension Heart failure, systolic, with acute decompensation (HCC) Acute on chronic systolic heart failure Nuclear sclerotic cataract of right eye Senile [...] and were consensually agreed upon. Care Teams Marble Worker Relationship Specialty Start Date End Date Rose Marie Galloway MD [address] [place] [address] [place] [phone] PCP - General Family Medicine 05/24/14 documented as of this encounter
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
--- OUTSIDE RECORDS SUMMARY | 2024-11-25 03:29 | External Medical Summary | Summary of Care ---
Author Name Unknown Organization [facility] Address [address] [place] [address] Phone [phone] Care Team Providers Care Structural Welder Name Role Phone Rose Marie Galloway MD Primary Care Provide r Reason for Visit * Reason Onset Date Comments Med Request 08/12/2024 Spironolactone Encounter Details Date Type Department Care Team (Late st Contact Info) Description 08/12/2024 Telephone Cardiology, [facility] [address] [place] [address] Graeme Pang PA-C [address] [facility] [place] [address] Med Request (Spironolactone) Allergies Active Allergy Reactions Criticality Noted Date [...] the morning. 30 Capsule 5 11/21/2022 Active Spironolactone 25 MG Oral Tablet (Aldactone)Indication [...] after eye surgery. 10 mL 07/23/2024 Active Eliquis 5 MG Oral Tablet (Apixaban)Indications :Permanent atrial fibrillation (HCC) TAKE 1 TABLET BY MOUTH TWICE A DAY 180 Tablet 1 08/11/2024 Active documented as of this encounter (statuses as of 08/12/2024) Active Problems Problem Noted Date Diagnosed Date NICM (nonischemic cardiomyopathy) 04/19/2024 ICD (implantable cardioverter-defibrillator) in place 04/19/2024 Chronic kidney disease, stage 3b 11/18/2022 Overview: Per CKD protocol Osteoporosis, postmenopausal 11/05/2022 Permanent atrial fibrillation 11/05/2022 Peripheral vascular disease 10/23/2021 Hx of melanoma of skin 12/04/2020 Overview: 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, [place] II, 11/2020) Hypertensive heart and kidne y [...] 08/23/2014 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 terminal operations supervisor current use of anticoagulant therapy 0 [...] (Moderna) 02/12/2021,01/15/2021 Pneumococcal Conjugate Vacci ne, 20-valent ([id number]) 11/21/2022 Pneumococcal Polysaccharide PPV23 (Pneumovax) 08/12/2006 Seasonal [...] encounter Miscellaneous Notes * Telephone Encounter - Marcelino Hines LPN - 08/12/2024 4:39 PM EST Sent in a refill request to Graeme * Telephone Encounter - Belkis Saxena OSA - 08/12/2024 4:29 PM EST Person calling: Kayce Relationship to patient: self Phone/Fax to return call: [phone] Reason for call(brief): med refill Pharmacy: [facility] in [place] Provider Name:Graeme Pang Detailed message to office: Patient needs refill of her Spironolactone sent to the [facility] in [place] the script is and she is almost out, Please Advise Thanks documented in this encounter Plan of Treatment Upcoming Encounters Date Type Department Care Team (Latest Contact Info) Description 08/17/2024 10:50 AM EST Hospital Encounter [facility], Outpatient Surgery [address] [phone] Frank Zuñiga MD [address] [place] [address] 08/17/2024 10:50 AM EST - 08/17/2024 11:51 AM EST Surgery [facility], Outpatient Surgery [address] [phone] Frank Zuñiga MD [address] [place] [address] EXTRACAPSULAR CATARACT REMOVAL WITH INTRAOCULAR LENS 08/18/2024 9:15 AM EST Office Visit [address] [address] Frank Zuñiga MD [address] [place] [address] 08/24/2024 9:15 AM EST Office Visit [address] [address] Frank Zuñiga MD [address] [place] [address] 10/14/2024 2:45 PM EST Cardiac Studies Cardiac Studies [address] [place] [address] 11/30/2024 1:00 PM EST Nurse Only Ancillary [address] [place] [address] [place], Nurse [address] [place] [address] 11/30/2024 2:40 PM EST Office Visit Family Medicine [address] [place] [phone] Marcela Ramirez CRNP [address] [place] [address] [place] [address] 12/28/2024 12:30 PM EDT Office Visit Cardiology [address] [place] [address] Graeme Pang PA-C [address] [place] [address] 12/29/2024 1:20 PM EDT Office Visit Dermatology [address] [place] [address] Mami Rodriguez PA-C [address] [place] [address] [place] [address] 06/21/2025 1:40 PM EDT Office Visit Family [address] [place] [phone] Rose Marie Galloway MD [address] [place] [address] [place] [address] Scheduled Procedures Name Priority Associated Diagnoses Date/Ti [...] Screening 11/27/2024 11/27/2023 CKD HGB USE SMARTSET 67787 05/14/202505/14, 11/12/2023, 11/12/2023, Additional history exists CKD PHOS USE SMARTSET 03649 05/25/2025 08/2 , 12/24/2022, 12/05/2021, Additional history exists TSH 05/25/2025 05/25/2024, /0 04/2024, 09/25/2023, Additional history exists Cologuard 08/21/2025 [...] D LEVEL ONCE IN A LIFETIME-USE SMARTSET# 11173 Completed 05/25/2024, 06/04/2023, 11/05/2022, Additional history exists [...] this encounter Medical Devices Implanted Type Area Corporate Legal Manager Device Identifier Shelf Expiration Date Model / Serial / Lot Alloderm 6 X 16cm Implanted:Qty: 1 on 02/05/2007 [place] [facility] [place]: Breast LIFE CELL MADDIE [id number] / [id number] / [id number] Description:Alloderm 6 x 16 cm to right breast [id number] - [id number] Implanted:Qty: 1 on 02/05/2007 at [place] [facility] [place]: Breast LIFE CELL MADDIE [id number] / [id number] / [id number] Description:ALLODERM TO left breast 6 x 16cm [place] Breast Implant Implanted:Qty: 1 on 02/05/2007 at [place] [facility] Right: Breast MENTOR MADDIE 08/06/2010 350-1697 / [id number] / [id number] Description:700ml Breast Imp lant to Right Breast [place] Breast Implant Implanted:Qty: 1 on 02/05/2007 at [place] [facility] Left: Breast MENTOR MADDIE 08/06/2010 350-1697 / [id number] / [id number] Description:[place] Breast Im plant to Left BreaST Graft Fascia Nevin 2x3 [address] - [id number] Implanted:Qty: 1 on 03/20/2010 at OR [facility] Right: Eye [employer] 06/06/2014 [id number] / / [id number] Breast Implant 350-1697 Saline - [id number] Implanted:Qty: 1 on 04/20/2011 at [place] [facility] Right: Breast MENTOR MADDIE 04/04/2015 350-1697 / [id number] / [id number] Description:[place] smooth ro und moderate profile saline. Envelope Antibacteral Tyrx - [id number] Implanted:Qty: 1 on 05/14/2024 by Zulema Giordano IV, MD at [facility] [employer] : CRM [id number] 01/30/2025 [id number] 133 / / [id number] Defib [place] Mri Quad Medical Physics Teacher-D - [id number] Implanted:Qty: 1 on 05/14/2024 by Zulema Giordano IV, MD at [facility] [employer] [id number] 07/03/2025 [id number] / [id number] / [id number] S documented as of this encounter Advance [...] and were consensually agreed upon. Care Teams Structural Welder Relationship Specialty Start Date End Date Rose Marie Galloway MD [address] [place] [address] [place] [address] PCP - General Family Medicine 05/24/14 documented as of this encounter
--- OUTSIDE RECORDS SUMMARY | 2024-11-25 03:29 | External Medical Summary | Summary of Care ---
Author Name Unknown Organization [facility] Address [address] [place] [address] Phone [phone] Care Team Providers Care Yellow Pages Space Salesperson Name Role Phone Teresa Galloway MD Primary Care Provide r Reason for Visit * Reason Comments eRx-Medication Refill Encounter Details Date Type Department Care Team ([facility] st Contact Info) Description 08/10/2024 Refill Family Medicine [address] [phone] Teresa Galloway MD [address] [place] [address] Permanent atrial fibrillation (HCC) Allergies Active Allergy Reactions Criticality Noted Date Comments Docetaxel 02/14/2011 Chest pain, passed out , could not talk, saw silver round bubbles documented as of this encounter (statuses as of 08/11/2024) Medications Medication Sig Dispensed Refills Start Date End Date Status OXYCODONE HCL 10 MG PO TABSIndications:susan n as needed Take by mouth every 8 hours as needed . Active Vitamin D3 50 MCG (1999 UT) Oral Capsule Take 1 Capsule by mouth in the morning. 30 Capsule 5 3 Active Spironolactone 25 MG Oral Tablet (Aldactone)Indicati ons:HTN, goal below 140/90,Heart failure, systolic, with acute decompensation (HCC) Take 0.5 Tablets by mouth once a day on Friday, Friday, and Friday only. 3 Active Furosemide 40 MG Oral Tablet [...] A DAY 180 Tablet 1 4 Active Apixaban 5 MG Oral Tablet (Eliquis)Indication s:Permanent atrial fibrillation (HCC) Take 1 Tablet by mouth 2 times a day. 180 Tablet 3 3 08/11/20 24 Discontinued documented as of this encounter (statuses as of 08/11/2024) Active Problems Problem Noted Date Diagnosed Date NICM (nonischemic cardiomyopathy) 04/19/2024 ICD (implantable cardioverter-defibrillator) in place 04/19/2024 Chronic kidney disease, stage 3b 11/18/2022 Overview: Per CKD protocol Osteoporosis, postmenopausal 11/05/2022 Permanent atrial fibrillation 11/05/2022 Peripheral vascular disease 10/23/2021 Hx of melanoma of skin 12/04/2020 Overview: 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, [place] II, 11/2020) Hypertensive heart and kidne y [...] 08/23/2014 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 terminologist current use of anticoagulant therapy 0 05/12/2006 Overview: ICD-10 update of inactive term History of breast cancer 03/28/2006 Family history of other cardiovascular diseases 05/14/2005 Overview: ICD-10 update of inactive term FAMILY HX-BREAST MALIG 05/14/2005 HTN, goal below 140/90 06/26/2001 Blindness of left eye documented as of this encounter (statuses as of 08/11/2024) Resolved Problems Problem Noted Date Diagnosed Date [...] as of this encounter (statuses as of 08/11/2024) Immunizations Name Administration Dates Next Due COVID-19 mRNA, LNP-s, No Pre serve, 2-Dose Series (Moderna) 02/12/2021,01/15/2021 Pneumococcal Conjugate Vacci ne, 20-valent ([id number]) 11/21/2022 Pneumococcal Polysaccharide PPV23 (Pneumovax) 08/12/2006 Seasonal [...] encounter Miscellaneous Notes * Telephone Encounter - Melanie Arreaga [facility] - 08/11/2024 1:56 PM ESTSigned Prescriptions: Disp Refills Eliquis 5 MG Oral Tablet (Apixaban) 180 Ta*1 Sig: TAKE 1 TABLETBY MOUTH TWICE A DAYAuthorizing Provider: TERESA GALLOWAY User: MELANIE ARREAGA--- documented in this encounter Plan of Treatment Upcoming Encounters Date Type Department Care Team (Latest Contact Info) Description 08/17/2024 9:07 AM EST Hospital Encounter [facility], Outpatient Surgery [address] [phone] Frank Zuñiga MD [address] [place] [address] 08/17/2024 9:07 AM EST - 08/17/2024 10:08 AM EST Surgery [facility], Outpatient Surgery [address] [phone] Frank Zuñiga MD [address] [place] [address] EXTRACAPSULAR CATARACT REMOVAL WITH INTRAOCULAR LENS 08/18/2024 9:15 AM EST Office Visit [address] [address] Frank Zuñiga MD [address] [place] [address] 08/24/2024 9:15 AM EST Office Visit [address] [address] Frank Zuñiga MD [address] [place] [address] 10/14/2024 2:45 PM EST Cardiac Studies Cardiac Studies [address] [place] [address] 11/30/2024 1:00 PM EST Nurse Only Ancillary [address] [place] [address] [place], Nurse [address] [place] [address] 11/30/2024 2:40 PM EST Office Visit Family Medicine [address] [place] [phone] Marcela Ramirez CRNP [address] [place] [address] [place] [address] 12/28/2024 12:30 PM EDT Office Visit Cardiology [address] [place] [address] Graeme Pang PA-C [address] [place] [address] 12/29/2024 1:20 PM EDT Office Visit Dermatology [address] [place] [address] Mami Rodriguez PA-C [address] [place] [address] [place] [address] 06/21/2025 1:40 PM EDT Office Visit Family Medicine [address] [place] [phone] Teresa Galloway MD [address] [place] [address] [place] [address] Scheduled Procedures Name Priority Associated Diagnoses Date/Ti [...] Screening 11/27/2024 11/27/2023 CKD HGB USE SMARTSET 52381 05/14/202505/14, 11/12/2023, 11/12/2023, Additional history exists CKD PHOS USE SMARTSET 86611 05/25/20252 , 12/24/2022, 12/05/2021, Additional history exists [...] D LEVEL ONCE IN A LIFETIME-USE SMARTSET# 23822 Completed 05/25/2024, 06/04/2023, 11/05/2022, Additional history exists [...] this encounter Medical Devices Implanted Type Area Picture Booker Device Identifier Shelf Expiration Date Model / Serial / Lot Alloderm 6 X 16cm Implanted:Qty: 1 on 02/05/2007 at [place] [facility] Right: Breast LIFE CELL MADDIE [id number] / [id number] / [id number] Description:Alloderm 6 x 16 cm to right breast [id number] - [id number] Implanted:Qty: 1 on 02/05/2007 at OR [facility] Left: Breast LIFE CELL MADDIE [id number] / [id number] / [id number] Description:ALLODERM TO left breast 6 x 16cm Bates Breast Implant Implanted:Qty: 1 on 02/05/2007 at OR [facility] Right: Breast MENTOR MADDIE 08/06/2010 350-1697 / [id number] / [id number] Description:700ml Breast Imp lant to Right Breast [place] Breast Implant Implanted:Qty: 1 on 02/05/2007 at OR [facility] Left: Breast MENTOR MADDIE 08/06/2010 350-1697 / [id number] / [id number] Description:Bates Breast Im plant to Left BreaST Graft Fascia Nevin 2x3 51307 - [id number] Implanted:Qty: 1 on 03/20/2010 at OR [facility] Right: Eye [employer] 06/06/2014 [id number] / / [id number] Breast Implant 350-1697 Saline - [id number] Implanted:Qty: 1 on 04/20/2011 at OR [facility] Right: Breast MENTOR MADDIE 04/04/2015 350-1697 / [id number] / [id number] Description:Bates smooth ro und moderate profile saline. Envelope Antibacteral Tyrx - [id number] Implanted:Qty: 1 on 05/14/2024 by Zulema Giordano IV, MD at [facility] [employer] : CRM [id number] 01/30/2025 [id number] / / [id number] Defib [place] Mri Quad Molecular Geneticist-D - [id number] Implanted:Qty: 1 on 05/14/2024 by Zulema Giordano IV, MD at [facility] [employer] [id number] 07/03/2025 [id number] / [id number] / [id number] S documented as of this encounter Visit Diagnoses Diagnosis Permanent atrial fibrillation (HCC) Atrial fibrillation Nuclear sclerotic cataract of right eye Senile [...] and were consensually agreed upon. Care Teams Yellow Pages Space Salesperson Relationship Specialty Start Date End Date Teresa Galloway MD [address] [place] [address] [place] [address] PCP - General Family Medicine 05/24/14 documented as of this encounter
--- OUTSIDE RECORDS SUMMARY | 2024-11-25 03:30 | External Medical Summary | Summary of Care ---
Author Name Unknown Organization [facility] Address [address] [place] [address] Phone [phone] Care Team Providers Care Cartridge Filler Name Role Phone Rose Marie Galloway MD Primary Care Provide r Encounter Details Date Type Department Care Team (Late st Contact Info) Description 05/31/2024 Orders Only Outcomes Research Department [address] [place], [place] [id number] Carine Vasques CHRA [employer] Other*[id number] Allergies Active Allergy Reactions Criticality Noted Date Comments Docetaxel 02/14/2011 Chest pain, passed out , could not talk, saw silver round bubbles documented as of this encounter (statuses as of 05/31/2024) Medications Medication Sig Dispensed Refills Start Date [...] as of this encounter (statuses as of 05/31/2024) Active Problems Problem Noted Date Diagnosed Date NICM (nonischemic cardiomyopathy) 04/19/2024 ICD (implantable cardioverter-defibrillator) in place 04/19/2024 Chronic kidney disease, stage 3b 11/18/2022 Overview: Per CKD protocol Osteoporosis, postmenopausal 11/05/2022 Permanent atrial fibrillation 11/05/2022 Peripheral vascular disease 10/23/2021 Hx of melanoma of skin 12/04/2020 Overview: 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, [place] II, 11/2020) Hypertensive heart and kidne y [...] 08/23/2014 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 ADVANCE DIRECTIVE INFORMATION 07/01/2007 Overview: No, Advance Directive brochure given to patient 02/26/06. snf current use of anticoagulant therapy 0 05/12/2006 Overview: ICD-10 update of inactive term History of breast cancer 03/28/2006 Family history of other cardiovascular diseases 05/14/2005 Overview: ICD-10 update of inactive term FAMILY HX-BREAST MALIG 05/14/2005 HTN, goal below 140/90 06/26/2001 Blindness of left eye documented as of this encounter (statuses as of 05/31/2024) Resolved Problems Problem Noted Date Diagnosed Date [...] as of this encounter (statuses as of 05/31/2024) Immunizations Name Administration Dates Next Due COVID-19 mRNA, LNP-s, No Pre serve, 2-Dose Series (Moderna) 02/12/2021,01/15/2021 Pneumococcal Conjugate Vacci ne, 20-valent ([id number]) 11/21/2022 Pneumococcal Polysaccharide PPV23 (Pneumovax) 08/12/2006 Seasonal Influenza, Split, I IV3, With Preserve, Inj 10/13/2008,07/13/2007,08/12/2006 TDAP (age 10 and older)(Boostrix) 09/01/2018 [...] on file documented as of this encounter Plan of Treatment Upcoming Encounters Date Type Department Care Team (Latest Contact Info) Description 06/08/2024 12:30 PM EDT Office Visit Cardiology [address] [place] [address] Graeme Pang PA-C [address] [place] [address] 07/23/2024 11:00 AM EDT Office Visit [address] [address] Lara Reagan CRNP [address] [place] [address] 07/23/2024 11:30 AM EDT Orders Only [address] [address] [place], Biometry Tech [address] [place] [address] 08/17/2024 9:07 AM EST Hospital Encounter [facility], Outpatient Surgery [address] [phone] Frank Zuñiga MD [address] [place] [address] 08/17/2024 9:07 AM EST - 08/17/2024 10:08 AM EST Surgery [facility], Outpatient Surgery [address] [phone] Frank Zuñiga MD [address] [place] [address] EXTRACAPSULAR CATARACT REMOVAL WITH INTRAOCULAR LENS 08/18/2024 9:15 AM EST Office Visit [address] [address] Frank Zuñiga MD [address] [place] [address] 08/24/2024 9:00 AM EST Office Visit [address] [address] Frank Zuñiga MD [address] [place] [address] 11/30/2024 1:00 PM EST Nurse Only Ancillary [address] [place] [address] [place], Nurse Annual [address] [place] [address] 11/30/2024 2:40 PM EST Office Visit Family Medicine [address] [place] [phone] Marcela Ramirez CRNP [address] [place] [address] [place] [address] 12/29/2024 1:20 PM EDT Office Visit Dermatology [address] [place] [address] Mami Rodriguez PA-C [address] [place] [address] [place] [address] 06/21/2025 1:40 PM EDT Office Visit Family Medicine [address] [place] [phone] Rose Marie Galloway MD [address] [place] [address] [place] [address] Scheduled Orders Name Type Priority Associated Diagnoses Orde r Schedule MYCODE SUBSEQUENT ADULT Lab Routine [employer] Research Other*[id number] Every 6 Months for 2 Occurrences starting 05/31/2024 until 06/20/2025 Scheduled Procedures Name Priority Associated Diagnoses Date/Ti [...] FOR OSTEOPOROSIS (REFER TO SMARTSET #1146) 11/23/2022 COVID-19 Vaccine ( season) 2023 02/12/2021, 01/15/2021 Albumin/Creatinine Ratio 08/16/2023 08/16/2022 Influenza Vaccine (FLU shot) (#1) 2024 10/13/2008, 07/13/2007, 08/12/2006, Additional history exists DXA Scan 11/04/2024 11/04/2022, 11/04/2022 GFR 11/25/2024 05/25/2024, 08/0 06/2024, 11/12/2023, Additional history exists Adult Wellness Visit 11/27/2024 11/27/2023, 11/26/19 23 Depression Screening 11/27/2024 11/27/2023 CKD HGB USE SMARTSET 69318 05/14/202505/14, 11/12/2023, 11/12/2023, Additional history exists CKD PHOS USE SMARTSET 77789 05/25/2025 08/2 , 12/24/2022, 12/05/2021, Additional history exists TSH 05/25/2025 05/25/2024, 04/2024, 09/25/2023, Additional history exists Cologuard 08/21/2025 08/21/2022, 05/2022, 08/13/2022, Additional history exists Colorectal Cancer Screening 08/21/2025 Diabetes Screening 05/25/2027 05/25/2024, 0 05/14/2024, 11/12/2023, Additional history exists DTaP,Tdap,and Td Vaccines (3 - Td or Tdap) 09/01/2028 09/01/2018, 03/14/2008 Lipid Panel 11/12/2028 11/12/2023, 12/05, 01/24/2022, Additional history exists Pap Smear Discontinued 03/26/2022, 03/06, 11/27/2015, Additional history exists Pneumococcal Vaccine: 65+ Years Completed 11/21/2022, 08/12/2006 VITAMIN D LEVEL ONCE IN A LIFETIME-USE SMARTSET# 55057 Completed 05/25/2024, 06/04/2023, 11/05/2022, Additional history exists [...] this encounter Medical Devices Implanted Type Area Training Lead Device Identifier Shelf Expiration Date Model / Serial / Lot Alloderm 6 X 16cm Implanted:Qty: 1 on 02/05/2007 at OR [facility] Right: Breast LIFE CELL MADDIE [id number] / [id number] / [id number] Description:Alloderm 6 x 16 cm to right breast [id number] - [id number] Implanted:Qty: 1 on 02/05/2007 at OR [facility] Left: Breast LIFE CELL MADDIE [id number] / [id number] / [id number] Description:ALLODERM TO left breast 6 x 16cm [place] Breast Implant Implanted:Qty: 1 on 02/05/2007 at OR [facility] Right: Breast MENTOR MADDIE 08/06/2010 [id number] / [id number] / [id number] Description:700ml Breast Imp lant to Right Breast [place] Breast Implant Implanted:Qty: 1 on 02/05/2007 at OR [facility] Left: Breast MENTOR MADDIE 08/06/2010 350-1697 / [id number] / [id number] Description:[place]aty Breast Im plant to Left BreaST Graft Fascia Nevin 2x3 54837 - [id number] Implanted:Qty: 1 on 03/20/2010 at OR [facility] Right: Eye [employer] 06/06/2014 07779 / / [id number] Breast Implant 350-1697 Saline - [id number] Implanted:Qty: 1 on 04/20/2011 at OR [facility] Right: Breast MENTOR MADDIE 04/04/2015 350-1697 / [id number] / [id number] Description:Katy smooth ro und moderate profile saline. Envelope Antibacteral Tyrx - [id number] Implanted:Qty: 1 on 05/14/2024 by Zulema Giordano IV, MD at [facility] [employer] : CRM [id number] 01/30/2025 CMRM6 133 / / [id number] Defib [place] Mri Quad Manager Care Management-D - [id number] Implanted:Qty: 1 on 05/14/2024 by Zulema Giordano IV, MD at [facility] [employer] [id number] 07/03/2025 [id number] / [id number] S / [id number] S documented as of this encounter Visit Diagnoses Diagnosis [employer] Research Other*[id number] Nuclear sclerotic cataract of right eye Senile [...] and were consensually agreed upon. Care Teams Cartridge Filler Relationship Specialty Start Date End Date Rose Marie Galloway MD [address] [place] [address] [place] [phone] PCP - General Family Medicine 05/24/14 documented as of this encounter
--- OUTSIDE RECORDS SUMMARY | 2024-11-25 03:30 | External Medical Summary | Summary of Care ---
Author Name Unknown Organization [facility] Address [address] [place] [address] Phone [phone] Care Team Providers Care Brick Wheeler Name Role Phone Rose Marie Galloway MD Primary Care Provide r Encounter Details Date Type Department Care Team (Late st Contact Info) Description 06/06/2024 Result Scan Unspecified Department Zulema Giordano IV, MD [address] [place] [address] <No scans attached> Allergies Active Allergy Reactions Criticality Noted Date Comments Docetaxel 02/14/2011 Chest pain, passed out , could not talk, saw silver round bubbles documented as of this encounter (statuses as of 06/06/2024) Medications Medication Sig Dispensed Refills Start Date [...] as of this encounter (statuses as of 06/06/2024) Active Problems Problem Noted Date Diagnosed Date NICM (nonischemic cardiomyopathy) 04/19/2024 ICD (implantable cardioverter-defibrillator) in place 04/19/2024 Chronic kidney disease, stage 3b 11/18/2022 Overview: Per CKD protocol Osteoporosis, postmenopausal 11/05/2022 Permanent atrial fibrillation 11/05/2022 Peripheral vascular disease 10/23/2021 Hx of melanoma of skin 12/04/2020 Overview: 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, [place] II, 11/2020) Hypertensive heart and kidne y [...] 08/23/2014 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 ADVANCE DIRECTIVE INFORMATION 07/01/2007 Overview: No, Advance Directive brochure given to patient 02/26/06. [facility] current use of anticoagulant therapy 0 05/12/2006 Overview: ICD-10 update of inactive term History of breast cancer 03/28/2006 Family history of other cardiovascular diseases 05/14/2005 Overview: ICD-10 update of inactive term FAMILY HX-BREAST MALIG 05/14/2005 HTN, goal below 140/90 06/26/2001 Blindness of left eye documented as of this encounter (statuses as of 06/06/2024) Resolved Problems Problem Noted Date Diagnosed Date [...] Orbital cellulitis 03/11/2010 0 ACTIVE CASE MANAGEMENT Geteha Lester, RN [phone] 12/13/19 09 07/23/2010 [...] as of this encounter (statuses as of 06/06/2024) Immunizations Name Administration Dates Next Due COVID-19 mRNA, LNP-s, No Pre serve, 2-Dose Series (Moderna) 02/12/2021,01/15/2021 Pneumococcal Conjugate Vacci ne, 20-valent ([id number]) 11/21/2022 Pneumococcal Polysaccharide PPV23 (Pneumovax) 08/12/2006 Seasonal [...] 06/08/2024 12:30 PM EDT Office Visit Cardiology [address] [place] [address] Graeme Pang PA-C [address] [place] [address] 07/23/2024 11:00 AM EDT Office Visit [address] [address] Lara Reagan CRNP [address] [place] [phone] 07/23/2024 11:30 AM EDT Orders Only [address] [phone] [place], Biometry Tech [address] [place] [phone] 08/17/2024 9:07 AM EST Hospital Encounter [facility], Outpatient Surgery [address] [phone] Frank Zuñiga MD [address] [place] [address] 08/17/2024 9:07 AM EST - 08/17/2024 10:08 AM EST Surgery [facility], Outpatient Surgery [address] [phone] Frank Zuñiga MD [address] [place] [address] EXTRACAPSULAR CATARACT REMOVAL WITH INTRAOCULAR LENS 08/18/2024 9:15 AM EST Office Visit [address] [address] Frank Zuñiga MD [address] [place] [address] 08/24/2024 9:00 AM EST Office Visit [address] [address] Frank Zuñiga MD [address] [place] [address] 11/30/2024 1:00 PM EST Nurse Only Ancillary [address] [place] [address] [place], Nurse Annual [address] [place] [address] 11/30/2024 2:40 PM EST Office Visit Family Medicine [address] [place] [phone] Marcela Ramirez CRNP [address] [place] [address] [place] [address] 12/29/2024 1:20 PM EDT Office Visit Dermatology [address] [place] [address] Mami Rodriguez PA-C [address] [place] [address] [place] [address] 06/21/2025 1:40 PM EDT Office Visit Family Medicine [address] [place] [phone] Rose Marie Galloway MD [address] [place] [address] [place] [address] Scheduled Procedures Name Priority Associated Diagnoses Date/Ti [...] Scan 11/04/2024 11/04/2022, 11/04/2022 GFR 11/25/2024 05/25/2024, 08/06/2024, 11/12/2023, Additional history exists Adult Wellness Visit 11/27/2024 11/27/2023, 11/26/19 23 Depression Screening 11/27/2024 11/27/2023 CKD HGB USE SMARTSET 14417 05/14/202505/14, 11/12/2023, 11/12/2023, Additional history exists CKD PHOS USE SMARTSET 47336 05/25/2025 08/2 , 12/24/2022, 12/05/2021, Additional history [...] D LEVEL ONCE IN A LIFETIME-USE SMARTSET# 96934 Completed 05/25/2024, 06/04/2023, 11/05/2022, Additional history exists [...] this encounter Medical Devices Implanted Type Area Silo Man Device Identifier Shelf Expiration Date Model / Serial / Lot Alloderm 6 X 16cm Implanted:Qty: 1 on 02/05/2007 at OR [facility] Right: Breast LIFE CELL MADDIE [id number] / [id number] / [id number] Description:Alloderm 6 x 16 cm to right breast [id number] - [id number] Implanted:Qty: 1 on 02/05/2007 at OR [facility] Left: Breast LIFE CELL MADDIE [id number] / [id number] / [id number] Description:ALLODERM TO left breast 6 x 16cm [place] Breast Implant Implanted:Qty: 1 on 02/05/2007 at OR [facility] Right: Breast MENTOR MADDIE 08/06/2010 350-1697 / [id number] / [id number] Description:700ml Breast Imp lant to Right Breast [place] Breast Implant Implanted:Qty: 1 on 02/05/2007 at OR [facility] Left: Breast MENTOR MADDIE 08/06/2010 350-1697 / [id number] / [id number] Description:[place] Breast Im plant to Left BreaST Graft Fascia Nevin 2x3 64380 - [id number] Implanted:Qty: 1 on 03/20/2010 at OR [facility] Right: Eye [employer] 06/06/2014 82555 / / [id number] Breast Implant 350-1697 Saline - [id number] Implanted:Qty: 1 on 04/20/2011 at OR [facility] Right: Breast MENTOR MADDIE 04/04/2015 350-1697 / [id number] / [id number] Description:[place] smooth ro und moderate profile saline. Envelope Antibacteral Tyrx - [id number] Implanted:Qty: 1 on 05/14/2024 by Zulema Giordano IV, MD at [facility] [employer] : CRM [id number] 01/30/2025 CMRM6 133 / / [id number] Defib [place] Mri Quad Chief Transfer And Pumphouse Operator-D - [id number] Implanted:Qty: 1 on 05/14/2024 by Zulema Giordano IV, MD at [facility] [employer] [id number] 07/03/2025 [id number] / [id number] / [id number] S documented as of this encounter Procedures Procedure Name Priority Date/Time Associated Diagnosis Comments CARDIOLOGY SCANNED RESULT 06/06/2024 documented in this encounter Results * CARDIOLOGY SCANNED RESULT (06/06/2024) 06/06/2024 Zulema Giordano IV, MD OTHER documented in this encounter Advance Directives * [...] and were consensually agreed upon. Care Teams Brick Wheeler Relationship Specialty Start Date End Date Rose Marie Galloway MD [address] [place] [address] [place] [address] PCP - General Family Medicine 05/24/14 documented as of this encounter
--- OUTSIDE RECORDS SUMMARY | 2024-11-25 03:30 | External Medical Summary | Summary of Care ---
Author Name Unknown Organization [facility] Address [address] [place] [address] Phone [phone] Care Team Providers Care Orthodontic Technician Name Role Phone Rose Marie Galloway MD Primary Care Provide r Encounter Details Date Type Department Care Team (Late st Contact Info) Description 05/29/2024 Orders Only PATIENT PORTAL DO NOT DELETE THIS DEPT USED BY JULIUS ESPARTOKEATON [id number] Allergies Active Allergy Reactions Criticality Noted Date Comments Docetaxel 02/14/2011 Chest pain, passed out , could not talk, saw silver round bubbles documented as of this encounter (statuses as of 05/29/2024) Medications Medication Sig Dispensed Refills Start Date [...] once a day on Friday, Friday, and Trmuan only. 09/26/2023 Active Furosemide 40 MG Oral [...] as of this encounter (statuses as of 05/29/2024) Active Problems Problem Noted Date Diagnosed Date NICM (nonischemic cardiomyopathy) 04/19/2024 ICD (implantable cardioverter-defibrillator) in place 04/19/2024 Chronic kidney disease, stage 3b 11/18/2022 Overview: Per CKD protocol Osteoporosis, postmenopausal 11/05/2022 Permanent atrial fibrillation 11/05/2022 Peripheral vascular disease 10/23/2021 Hx of melanoma of skin 12/04/2020 Overview: 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, [place] II, 11/2020) Hypertensive heart and kidne y [...] 08/23/2014 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 ADVANCE DIRECTIVE INFORMATION 07/01/2007 Overview: No, Advance Directive brochure given to patient 02/26/06. alf current use of anticoagulant therapy 0 05/12/2006 Overview: ICD-10 update of inactive term History of breast cancer 03/28/2006 Family history of other cardiovascular diseases 05/14/2005 Overview: ICD-10 update of inactive term FAMILY HX-BREAST MALIG 05/14/2005 HTN, goal below 140/90 06/26/2001 Blindness of left eye documented as of this encounter (statuses as of 05/29/2024) Resolved Problems Problem Noted Date Diagnosed Date [...] as of this encounter (statuses as of 05/29/2024) Immunizations Name Administration Dates Next Due COVID-19 mRNA, LNP-s, No Pre serve, 2-Dose Series (Moderna) 02/12/2021,01/15/2021 Pneumococcal Conjugate Vacci ne, 20-valent ([id number]) 11/21/2022 Pneumococcal Polysaccharide PPV23 (Pneumovax) 08/12/2006 Seasonal [...] 06/08/2024 12:30 PM EDT Office Visit Cardiology [address] [place] [address] Graeme Pang PA-C [address] [place] [address] 07/23/2024 11:00 AM EDT Office Visit [address] [address] Lara Reagan CRNP [address] [place] [address] 07/23/2024 11:30 AM EDT Orders Only [address] [address] [place], Biometry Tech [address] [place] [address] 08/17/2024 9:07 AM EST Hospital Encounter [facility], Outpatient Surgery [address] [phone] Frank Zuñiga MD [address] [place] [address] 08/17/2024 9:07 AM EST - 08/17/2024 10:08 AM EST Surgery [facility], Outpatient Surgery [address] [phone] Frank Zuñiga MD [address] [place] [address] EXTRACAPSULAR CATARACT REMOVAL WITH INTRAOCULAR LENS 08/18/2024 9:15 AM EST Office Visit [address] [address] Frank Zuñiga MD [address] [place] [address] 08/24/2024 9:00 AM EST Office Visit [address] [address] Frank Zuñiga MD [address] [place] [address] 11/30/2024 1:00 PM EST Nurse Only Ancillary [address] [place] [address] [place], Nurse [address] [place] [address] 11/30/2024 2:40 PM EST Office Visit Family Medicine [address] [place] [phone] Marcela Ramirez CRNP [address] [place] [address] [place] [address] 12/29/2024 1:20 PM EDT Office Visit Dermatology [address] [place] [address] Mami Rodriguez PA-C [address] [place] [address] [place] [address] 06/21/2025 1:40 PM EDT Office Visit Family Medicine [facility] [place] [phone] Rose Marie Galloway MD [address] [place] [address] [place] [address] Scheduled Procedures Name Priority Associated Diagnoses Date/Ti [...] Screening 11/27/2024 11/27/2023 CKD HGB USE SMARTSET 66438 05/14/202505/14, 11/12/2023, 11/12/2023, Additional history exists CKD PHOS USE SMARTSET 19689 05/25/2025 08/2 , 12/24/2022, 12/05/2021, Additional history exists TSH 05/25/2025 05/25/2024, 04/2024, 09/25/2023, Additional history exists Cologuard 08/21/2025 08/21/2022, 2022, 08/13/2022, Additional history exists Colorectal Cancer Screening 08/21/2025 Diabetes Screening 05/25/2027 05/25/2024, 0 05/14/2024, 11/12/2023, Additional history exists DTaP,Tdap,and Td Vaccines (3 - Td or Tdap) 09/01/2028 09/01/2018, 03/14/2008 Lipid Panel 11/12/2028 11/12/2023, 12/05, 01/24/2022, Additional history exists Pap Smear Discontinued 03/26/2022, 03/06, 11/27/2015, Additional history exists Pneumococcal Vaccine: 65+ Years Completed 11/21/2022, 08/12/2006 VITAMIN D LEVEL ONCE IN A LIFETIME-USE SMARTSET# 62812 Completed 05/25/2024, 06/04/2023, 11/05/2022, Additional history exists [...] this encounter Medical Devices Implanted Type Area Sap Portal Architect Device Identifier Shelf Expiration Date Model / Serial / Lot Alloderm 6 X 16cm Implanted:Qty: 1 on 02/05/2007 [place] [facility] [place] Breast LIFE CELL MADDIE [id number] / [id number] / [id number] Description:Alloderm 6 x 16 cm to right breast [id number] - [id number] Implanted:Qty: 1 on 02/05/2007 [place] [facility] [place]: Breast LIFE CELL MADDIE [id number] / [id number] / [id number] Description:ALLODERM TO left breast 6 x 16cm [place] Breast Implant Implanted:Qty: 1 on 02/05/2007 [place] [facility] [place]: Breast MENTOR MADDIE 08/06/2010 350-1697 / [id number] / [id number] Description:700ml Breast Imp lant to Right Breast [place] Breast Implant Implanted:Qty: 1 on 02/05/2007 [place] [facility] [place]: Breast MENTOR MADDIE 08/06/2010 350-1697 / [id number] / [id number] Description:[place] Breast Im plant to Left BreaST Graft Fascia Nevin 2x3 39835 - [id number] Implanted:Qty: 1 on 03/20/2010 at OR [facility] Right: Eye [employer] 06/06/2014 [id number] / / [id number] Breast Implant 350-1697 Saline - [id number] Implanted:Qty: 1 on 04/20/2011 at [place] [facility] [place]: Breast MENTOR MADDIE 04/04/2015 350-1697 / [id number] / [id number] Description:[place] smooth ro und moderate profile saline. Envelope Antibacteral Tyrx - [id number] Implanted:Qty: 1 on 05/14/2024 by Zulema Giordano IV, MD at [facility] [place] [employer] : CRM [id number] 01/30/2025 [id number] / / [id number] Defib [place] Mri Quad Service Greeter-D - [id number] Implanted:Qty: 1 on 05/14/2024 by Zulema Giordano IV, MD at [facility] [place] [employer] [id number] 07/03/2025 [id number] / [id number] / [id number] documented as of this encounter Advance [...] and were consensually agreed upon. Care Teams Orthodontic Technician Relationship Specialty Start Date End Date Rose Marie Galloway MD [address] [place] [address] [place] [address] PCP - General Family Medicine 05/24/14 documented as of this encounter
--- OUTSIDE RECORDS SUMMARY | 2024-11-25 03:30 | External Medical Summary | Summary of Care ---
Author Name Unknown Organization [facility] Address [address] [place] [address] Phone [phone] Care Team Providers Care Associate Loan Officer Name Role Phone Rose Marie Galloway MD Primary Care Provide r Reason for Visit * Reason Onset Date Comments Appointment 05/25/2024 Upper/lower endo scopy Encounter Details Date Type Department Care Team (Late st Contact Info) Description 05/25/2024 Telephone Family [address] [phone] Rose Marie Galloway MD [address] [place] [address] [place] [address] Appointment (Upper/lower endoscopy ) Allergies [...] 12/04/2020 Overview: 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, [place] II, 11/2020) Hypertensive heart and kidne y [...] 08/23/2014 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 ADVANCE DIRECTIVE INFORMATION 07/01/2007 Overview: No, Advance Directive brochure given to patient 02/26/06. intermediate project manager current use of anticoagulant therapy 0 [...] (Moderna) 02/12/2021,01/15/2021 Pneumococcal Conjugate Vacci ne, 20-valent ([id number]) 11/21/2022 Pneumococcal Polysaccharide PPV23 (Pneumovax) 08/12/2006 Seasonal [...] Description 07/23/2024 11:00 AM EDT Office Visit [address] [address] Lara Reagan CRNP [address] [place] [address] 07/23/2024 11:30 AM EDT Orders Only [address] [address] [place], Biometry Tech [address] [place] [address] 08/17/2024 9:07 AM EST Hospital Encounter [facility], Outpatient Surgery [address] [phone] Frank Zuñiga MD [address] [place] [address] 08/17/2024 9:07 AM EST - 08/17/2024 10:08 AM EST Surgery [facility], Outpatient Surgery [address] [phone] Frank Zuñiga MD [address] [place] [address] EXTRACAPSULAR CATARACT REMOVAL WITH INTRAOCULAR LENS 08/18/2024 9:15 AM EST Office Visit [address] [address] Frank Zuñiga MD [address] [place] [address] 08/24/2024 9:00 AM EST Office Visit [address] [address] Frank Zuñiga MD [address] [place] [address] 11/30/2024 1:00 PM EST Nurse Only Ancillary [address] [place] [address] [place], Nurse [address] [place] [address] 11/30/2024 2:40 PM EST Office Visit [address] [place] [phone] Marcela Ramirez CRNP [address] [place] [address] [place] [address] 12/29/2024 1:20 PM EDT Office Visit Dermatology [address] [place] [address] Mami Rodriguez PA-C [address] [place] [address] [place] [address] 06/21/2025 1:40 PM EDT Office Visit [address] [place] [phone] Rose Marie Galloway MD [address] [place] [address] [place] [address] Scheduled Procedures Name Priority Associated Diagnoses Date/Ti [...] Screening 11/27/2024 11/27/2023 CKD HGB USE SMARTSET 54545 05/14/202505/14, 11/12/2023, 11/12/2023, Additional history exists CKD PHOS USE SMARTSET 94306 05/25/2025 082 , 12/24/2022, 12/05/2021, Additional history [...] D LEVEL ONCE IN A LIFETIME-USE SMARTSET# 38465 Completed 05/25/2024, 06/04/2023, 11/05/2022, Additional history exists [...] this encounter Medical Devices Implanted Type Area Racking Machine Operator Device Identifier Shelf Expiration Date Model / Serial / Lot Alloderm 6 X 16cm Implanted:Qty: 1 on 02/05/2007 at [place] [facility] [place] Right: Breast LIFE CELL MADDIE [id number] / [id number] / [id number] Description:Alloderm 6 x 16 cm to right breast [id number] - [id number] Implanted:Qty: 1 on 02/05/2007 at OR [facility] [place] Left: Breast LIFE CELL MADDIE [id number] / [id number] / [id number] Description:ALLODERM TO left breast 6 x 16cm [place] Breast Implant Implanted:Qty: 1 on 02/05/2007 at OR [facility] [place] Right: Breast MENTOR MADDIE 08/06/2010 350-1697 / [id number] / [id number] Description:700ml Breast Imp lant to Right Breast [place] Breast Implant Implanted:Qty: 1 on 02/05/2007 at OR [facility] [place] Left: Breast MENTOR MADDIE 08/06/2010 350-1697 / [id number] / [id number] Description:[place] Breast Im plant to Left BreaST Graft Fascia Nevin 2x3 26831 - [id number] Implanted:Qty: 1 on 03/20/2010 at OR [facility] Right: Eye [employer] 06/06/2014 87875 / / [id number] Breast Implant 350-1697 Saline - [id number] Implanted:Qty: 1 on 04/20/2011 at OR [facility] [place] Right: Breast MENTOR MADDIE 04/04/2015 350-1697 / [id number] / [id number] Description:[place] smooth ro und moderate profile saline. Envelope Antibacteral Tyrx - [id number] Implanted:Qty: 1 on 05/14/2024 by Zulema Giordano IV, MD at [facility] [place] [employer] : CRM [id number] 01/30/2025 CMRM6 133 / / [id number] Defib [place] Mri Quad Senior It Auditor-D - [id number] Implanted:Qty: 1 on 05/14/2024 by Zulema Giordano IV, MD at [facility] [place] [employer] [id number] 07/03/2025 [id number] / [id number] / [id number] documented as of this encounter Advance [...] and were consensually agreed upon. Care Teams Associate Loan Officer Relationship Specialty Start Date End Date Rose Marie Galloway MD [address] [place] [address] [place] [address] PCP - General Family Medicine 05/24/14 documented as of this encounter
--- OUTSIDE RECORDS SUMMARY | 2024-11-25 03:30 | External Medical Summary | Summary of Care ---
Author Name Unknown Organization [facility] Address [address] [place] [address] Phone [phone] Care Team Providers Care It Manager Name Role Phone Rose Marie Galloway MD Primary Care Provide r Reason for Visit * Reason Onset Date Comments Appointment 05/25/2024 Upper/lower endo scopy Encounter Details Date Type Department Care Team (Late st Contact Info) Description 05/25/2024 Telephone Family [address] [phone] Rose Marie Galloway MD [address] [place] [address] [place] [address] Appointment (Upper/lower endoscopy ) Allergies [...] 12/04/2020 Overview: 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, [place] II, 11/2020) Hypertensive heart and kidne y [...] 08/23/2014 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 ADVANCE DIRECTIVE INFORMATION 07/01/2007 Overview: No, Advance Directive brochure given to patient 02/26/06. vp data current use of anticoagulant therapy 0 05/12/2006 [...] (Moderna) 02/12/2021,01/15/2021 Pneumococcal Conjugate Vacci ne, 20-valent (Suugxlp35) 11/21/2022 Pneumococcal Polysaccharide PPV23 (Pneumovax) 08/12/2006 Seasonal Influenza, Split, I IV3, With Preserve, Inj 10/13/2008,07/13/2007,08/12/2006,04/2003,08/09/2002 08/09/2003 TDAP (age 10 and older)(Boostrix) [...] 06/08/2024 12:30 PM EDT Office Visit Cardiology [address] [place] [phone] Graeme Pang PA-C [address] [facility] [place] [address] 07/23/2024 11:00 AM EDT Office Visit [address] [address] Lara Reagan CRNP [address] [place] [address] 07/23/2024 11:30 AM EDT Orders Only [address] [address] [place], Biometry Tech [address] [place] [id number] 08/17/2024 9:07 AM EST Hospital Encounter [facility], Outpatient Surgery [address] [phone] Frank Zuñiga MD [address] [place] [address] 08/17/2024 9:07 AM EST - 08/17/2024 10:08 AM EST Surgery [facility], Outpatient Surgery [address] [phone] Frank Zuñiga MD [address] [place] [address] EXTRACAPSULAR CATARACT REMOVAL WITH INTRAOCULAR LENS 08/18/2024 9:15 AM EST Office Visit [address] [address] Frank Zuñiga MD [address] [place] [address] 7320122 08/24/2024 9:00 AM EST Office Visit [address] [address] Frank Zuñiga MD [address] [place] [address] 11/30/2024 1:00 PM EST Nurse Only Ancillary [address] [place] [address] [place], Nurse Annual Wellness [address] [place] [address] [place] [address] 11/30/2024 2:40 PM EST Office Visit Family [address] [place] [phone] Marclea Ramirez CRNP [address] [place] [address] [place] [address] 12/29/2024 1:20 PM EDT Office Visit Dermatology [address] [place] [address] Mami Rodriguez PA-C [address] [place] [address] [place] [address] 06/21/2025 1:40 PM EDT Office Visit [address] [place] [phone] Rose Marie Galloway MD [address] [place] [address] [place] [address] Scheduled Procedures Name Priority Associated Diagnoses Date/Ti [...] Screening 11/27/2024 11/27/2023 CKD HGB USE SMARTSET 36851 05/14/202505/14, 11/12/2023, 11/12/2023, Additional history exists CKD PHOS USE SMARTSET 60694 05/25/2025 08/2 , 12/24/2022, 12/05/2021, Additional history [...] D LEVEL ONCE IN A LIFETIME-USE SMARTSET# 41382 Completed 05/25/2024, 06/04/2023, 11/05/2022, Additional history exists [...] this encounter Medical Devices Implanted Type Area Academic Department Chair Device Identifier Shelf Expiration Date Model / Serial / Lot Alloderm 6 X 16cm [place]:Q[place] [facility] [place] LIFE CELL MADDIE [id number] / [id number] / [id number] Description:Alloderm 6 x 16 cm to right breast [id number] - [id number] Implanted:Qty[place] 1 [place]05[place] [facility] [place] Breast LIFE CELL MADDIE [id number] / [id number] / [id number] Description:ALLODERM TO left breast 6 x 16cm [place] Breast Implant Implanted:Qty: 1 [place] 02[place]05/[place] [facility] [place]: Breast MENTOR MADDIE 08/06/2010 350-1697 / [id number] / [id number] Description:700ml Breast Imp lant to Right Breast [place] Breast Implant Implanted:Qty[place] 1 [place]05[place] [facility] [place] Breast MENTOR MADDIE 08/06/2010 350-1697 / [id number] / [id number] Description:[place] Breast Im plant to Left BreaST Graft Fascia Nevin 2x3 05047 - [id number] Implanted:Qty: 1 on 03/20/2010 at OR [facility] Right: Eye [employer] 06/06/2014 90874 / / [id number] Breast Implant 350-1697 Saline - [id number] Implanted:Qty: 1 on 04/20/2011 [place] [facility] [place]: Breast MENTOR MADDIE 04/04/2015 350-1697 / [id number] / [id number] Description:[place] smooth ro und moderate profile saline. Envelope Antibacteral Tyrx - [id number] Implanted:Qty: 1 on 05/14/2024 by Zulema Giordano IV, [place] [facility] [place] [employer] : CRM [id number] 01/30/2025 CMRM6 133 / / [id number] Defib [place] Mri Quad Landscape Gardener-D - [id number] Implanted:Qty: 1 on 05/14/2024 by Zulema Giordano IV, [place] [facility] [place] [employer] [id number] 07/03/2025 [id number] / [id number] / [id number] documented as of this encounter Advance [...] and were consensually agreed upon. Care Teams It Manager Relationship Specialty Start Date End Date Rose Marie Galloway MD [address] [place] [address] [place] [address] PCP - General Family Medicine 05/24/14 documented as of this encounter
[2024-11-25] MEDS: LEVOTHYROXINE SODIUM 75 MCG TABLET PO SCH (06:16)
[2024-11-25 06:36] LABS: Basophils # (auto) 0.04 K/uL (0.00-0.20); Basophils % (auto) 0.6 %; Eosinophils # (auto) 0.05 K/uL (0.00-0.50); Eosinophils % (auto) 0.7 %; Hematocrit (blood only) 37.1 % (37.0-47.0); Hemoglobin 12.5 g/dl (12.0-16.0); Immature Granulocytes # (auto) 0.02 K/uL (0.01-0.20); Immature Granulocytes % (auto) 0.3 %; Lymphocytes # (auto) 2.35 K/uL (1.20-3.40); Mean Corpuscular Hemoglobin 29.8 pg (25.0-34.0); Mean Corpuscular Hgb Conc 33.7 g/dL (32.0-36.0); Mean Corpuscular Volume 88.5 fL (80.0-100.0); Mean Platelet Volume 11.7 fL (9.4-12.4); Monocytes # (auto) 0.72 K/uL (0.11-0.59); Monocytes % (auto) 10.7 %; Neutrophils # (auto) 3.54 K/uL (1.40-6.50); Neutrophils % (auto) 52.7 %; Platelet Count 160 K/uL (130-400); RDW Coefficient of Variation 15.8 % (11.5-14.5); RDW Standard Deviation 50.8 fL (36.4-46.3); Red Blood Count 4.19 M/uL (4.20-5.40); White Blood Count 6.72 K/ul (4.8-10.8)
[2024-11-25 06:47] LABS: Albumin Level 4.1 gm/dl (3.4-5.0); BUN Creatinine Ratio 21.9 (10-20); Bilirubin Direct 0.5 mg/dl (0-0.2); Bilirubin,Total 1.6 mg/dl (0.2-1.0); Calcium 9.9 mg/dl (8.6-10.3); Creatinine Clr Calc Pharmacy 29.9 ml/min; Total Protein 6.7 gm/dl (6.0-8.3)
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
[2024-11-25] MEDS: POTASSIUM CHLORIDE CRTAB 20 MEQ TABCR PO STA (09:00)
[2024-11-25] MEDS ORDERED: ROSUVASTATIN CALCIUM 20 MG TAB PO SCH (09:00)
[2024-11-25] MEDS: APIXABAN 2.5 MG TAB PO SCH (09:00)
[2024-11-25] MEDS: METOPROLOL SUCC 25MG EXT REL TAB PO SCH (09:01)
[2024-11-25] MEDS: FUROSEMIDE 40 MG/4 ML VIAL IV ONE (12:39)
[2024-11-25] MEDS: hydrOXYzine HCl 10 MG TAB PO PRN (13:11)
--- NOTE | 2024-11-25 13:33 | Hospitalist Progress Note ---
Date of Service November 25, 2024 Assessment & Plan (1) SOB (shortness of breath): (2) CHF (congestive heart failure): (3) Cardiac defibrillator in situ: (4) Atrial fibrillation: (5) CKD (chronic kidney disease) stage 3, GFR 30-59 ml/min: (6) Dyslipidemia: (7) Hypothyroidism: Plan 69-yo F w/ PMH of HTN, HLD, drug induced cardiomyopathy w/ HFrEF, s/p ICD 03/2015, complete heart block s/p pacemaker defibrillator in 05/2018, pAF s/p cardioversion 12/23/2014 and 02/22/2018 and now permanent atrial fibrillation on Eliquis, CKD III, hypothyroidism, Usmbmxc-Kdxtl-Xamxz disease, breast cancer resented to ER with c/o worsening SOB. Patient reports exertional SOB for past couple of months with progressive worsening over past 2 weeks. She reports orthopnea, exertional dyspnea, on/off chest pain (pins and needles) at rest, intermittent episodes of palpitations and poor appetite. She reports constipation and not having BM in 2 weeks. She feels generally weak. She is being managed for the following: Decompensated heart failure presenting as right sided heart failure symptoms History of: systolic dysfunction (EF 30 to 35%, TTE 2024) & complete heart block s/p ICD/biventricular PPM Underlying pulmonary hypertension Patient presents with shortness of breath, admitting BNP elevated at 1361. Patient reported improvement after IV Lasix in the ED. Cardiology on board, appreciate comanagement, pt being diuresed. monitor replete electrolytes. I & Os monitoring, FR 2L. Continue telemetry monitoring. 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 RO ACS, likely could be anxiety. trop trends flat. EKG w/ ventricular paced rhythm. Respiratory BioFire and CXR negative. c/w hydroxyzine prn for anxiety. Chronic hypotension: l/t hypoperfusion supported by increased lactic acidosis at presentation. Metoprolol dose decreased to 25 mg bid, c/w same. Lactic acid improved after iv albumin in ED. Transaminitis: LFT elevated at baseline, slight uptrending noted at presentation. possible passive hepatic congestion, patient without abdominal pain complaints. Will repeat LFT in a.m., if persistent elevation will get liver ultrasound. Hold statin for now. Other chronic medical conditions: Continue with/resume home meds as and when able. AF status post cardioversion, on Eliquis, pt states she takes 2.5 mg bid. Valvular heart disease (mild MR/TR) History LBBB Hyperlipidemia on statin Rx CKD (baseline crea 1.4): Cr slightly elevated at presentation, doesn't qualify for acute injury. Cr now improving. Breast cancer status post surgery/reconstruction/chemotherapy/tamoxifen/Arimidex Rx Hypothyroidism, euthyroid as of recent outpatient TSH Skin cancer as per records Ajpfskc-Mhehi-Rnnkx disease DVT prophylaxis. Eliquis Full code Patient daughter Ms. Cha Gramajo, contact #[phone]. Text document was generated using [employer] voice recognition software. It may contain grammatical or spelling errors. Kindly contact undersigned for clarification of any documentation item in question. Admission and Anticipated Discharge Date Admission Date: November 24, 2024 Subjective Patient was seen and examined at bedside. Patient was lying in bed, on 2 L oxygen via nasal cannula, NAD, resting comfortably. Patient reports having some shortness of breath in the morning, denies fever/sore throat/nausea/vomiting. Patient reports eating okay, reports last bowel movement 2 weeks ago, reports having poor appetite prior to arrival due to shortness of breath. He reports moving gas, denies belly pain. Physical Exam Physical Exam: General: no distress, thin elderly female, chronic ill appearing Head: normocephalic, atraumatic Eyes: conjunctiva non-injected, anicteric ENT: normal inspection external ears, nose, mucous membranes moist Neck: supple, trachea midline Lungs: clear, no respiratory distress, no wheezing/rhonchi/rales CV: irregularly irregular, no pretibial edema Abd: normal BS, soft, non-tender Ext: no cyanosis, no calf tenderness Neuro: A&O x 3, no focal deficits noted, normal affect Skin: warm, dry Results & Data Results & Data Vital Signs (Past 12 Hours) Vital Signs Temp Pulse Pulse Resp BP Pulse Ox O2 Del Method 11/25/24 11:00 36.5 C 60 18 128/66 98 Room Air 11/25/24 08:00 66 11/25/24 08:00 Room Air 11/25/24 08:00 36.7 C 66 20 118/63 97 Room Air 11/25/24 03:59 36.8 C 77 18 124/88 95 Room Air 11/25/24 02:09 Room Air
[2024-11-25] MEDS: NITROGLYCERIN SL 0.4 MG/TAB TAB SL PRN (13:49)
--- NOTE | 2024-11-25 15:50 | Electrocardiogram Report ---
Test Reason : Blood Pressure : */* mmHG Vent. Rate : 65 BPM Atrial Rate : 53 BPM P-R Int : * ms QRS Dur : 134 ms QT Int : 482 ms P-R-T Axes : * 254 65 degrees QTcB Int : 501 ms Ventricular-paced rhythm Abnormal ECG When compared with ECG of 29-Oct-2022 13:14, Vent. rate has increased by 4 bpm Confirmed by Javad Lamb ([id number]) on 11/25/2024 3:49:47 PM Referred By: REFERRED SELF Confirmed By: Javad Lamb
--- NOTE | 2024-11-25 16:14 | Electrocardiogram Report ---
Test Reason : Blood Pressure : */* mmHG Vent. Rate : 60 BPM Atrial Rate : 241 BPM P-R Int : * ms QRS Dur : 126 ms QT Int : 442 ms P-R-T Axes : * 252 175 degrees QTcB Int : 442 ms Ventricular-paced rhythm Biventricular pacemaker detected Abnormal ECG When compared with ECG of 24-Nov-2024 18:16, (unconfirmed) Vent. rate has decreased by 5 bpm Confirmed by Javad Lamb ([id number]) on 11/25/2024 4:13:38 PM Referred By: REFERRED SELF Confirmed By: Javad Lamb
[2024-11-25] MEDS: METOPROLOL SUCC 50MG EXT REL TAB PO SCH (20:16)
[2024-11-26] MEDS: ALBUMIN 25% 12.5 GM/50 ML VIAL IV ONE (04:08)
[2024-11-26 06:54] LABS: Hemoglobin 12.2 g/dl (12.0-16.0); Mean Corpuscular Hemoglobin 29.8 pg (25.0-34.0); Mean Corpuscular Hgb Conc 33.9 g/dL (32.0-36.0); Mean Platelet Volume 12.4 fL (9.4-12.4); Platelet Count 151 K/uL (130-400); RDW Standard Deviation 50.4 fL (36.4-46.3); Red Blood Count 4.09 M/uL (4.20-5.40); White Blood Count 6.56 K/ul (4.8-10.8)
[2024-11-26 07:24] LABS: Calcium 9.7 mg/dl (8.6-10.3); Creatinine Clr Calc Pharmacy 25.7 ml/min; Magnesium 2.2 mg/dl (1.7-2.4); Phosphorus 3.2 mg/dl (2.5-4.9); Potassium 3.5 mmol/L (3.5-5.1)
[2024-11-26] MEDS: POTASSIUM CHLORIDE CRTAB 20 MEQ TABCR PO STA (08:49)
[2024-11-26] MEDS: SPIRONOLACTONE 12.5 MG TAB PO SCH (08:56)
--- NOTE | 2024-11-26 08:59 | Cardiology Progress Note ---
Date of Service November 26, 2024 Assessment & Plan (1) SOB (shortness of breath): (2) Acute on chronic systolic HF (heart failure): (3) CKD (chronic kidney disease) stage 3, GFR 30-59 ml/min: (4) Atrial fibrillation: (5) Presence of combination internal cardiac defibrillator (ICD) and pacemaker: Plan Assessment: 69 year old female admitted with concerns of acute on chronic HF exacerbation. Cardiology requested for further assessment and recommendations. Plan: 1. SOB 2. Acute on Chronic Systolic HF 3. CKD 4. A-fib 5. Presence of combination ICD/Pacemaker -Patient demonstrates clinical improvement after initial dose of IV lasix in the ER -Diuresing well, Renal function stable. give Lasix 40mg IV x1 dose today. -Strict I&O, daily weights with a standing scale. close monitoring of renal function and electrolytes. -Serum K 3.0, receiving PO supplementation -goal serum K > 4.0 and Mag 2.0 -Recent device interrogation demonstrates normal function, but increased fluid levels. -continue to monitor on telemetry -Reassess volume status in the AM 11/26/2024: -Patient is doing well from a cardiac perspective this morning. -BP low normal. This is not new for patient. Her OP blood pressures trend 90's systolic. Would recommend that she be resumed on her current medications including Toprol xl 50mg PO BID, and Spironolactone 12.5mg // only. -No further cardiac testing is necessary at this time. -Recommend OP labs in one week and close OP cardiology follow up. Will have office contact patient to arrange. -Continue Eliquis 2.5mg PO BID -Renal function stable, resume Jardiance -Cardiology will sign off. please reach out with any further questions/concerns. Case has been discussed with Dr. Johnson. Further recommendations regarding plan of care as per his assessment. I spent a total of 30 minutes on the date of service in preparation, delivery, documentation of the care provided to the patient excluding any time spent in the performance of separately billed services. ANUP [facility] Admission and Anticipated Discharge Date Admission Date: November 24, 2024 Supervising Physician Co-Signing Physician Notes I have personally performed a history and physical examination on the patient. I have reviewed the advance practitioner's documentation, and I agree with, and take responsibility for the plan of care. 69-year-old female mated with acute on chronic heart failure with reduced ejection fraction. Clinically improved with IV diuresis. Chronic asymptomatic hypotension noted. Recommend transition to outpatinet oral diuretic regimen. Metoprolol reduced to 50 mg twice daily during hospitalization. Resume outpatient spironolactone and Jardiance. Maintain serum potassium greater than 4.0, and magnesium greater than 2.0. No further inpatient cardiac testing or intervention recommended at this time. Cardiology will sign off. Please call with additional concerns/questions. Jonathan Johnson DO, [facility] I spent a total of 25 minutes on the date of service in preparation, delivery, and documentation of the care provided to this patient, excluding any time spent in the performance of separately billed services. Subjective 11/26/24: Patient seen and examined in follow up today. Feeling well. Offers no acute concerns. AM meds were held this morning due to hypotension. Important to note, patient's blood pressures at baseline run 90's systolic Labs, vitals, diagnostics, telemetry and documentation reviewed. Telemetry reviewed showing Paced. -380ml fluid deficit Review of Systems 2 Review of Systems: All systems reviewed & are unremarkable except as noted in Subjective Physical Exam Constitutional: well developed and well nourished; no acute distress and not ill appearing Neck: normal visual inspection and trachea midline Respiratory: normal respiratory effort; no respiratory distress, no labored breathing and no cough Auscultation: no crackles, no rales, no rhonchi and no wheezes Cardiovascular: Rate/Rhythm: + irregularly irregular (Paced with underlying A- fib ) Heart Sounds: normal S1, normal S2 and + murmur (+1/6 systolic ) Vessels: dorsalis pedis pulses present; no JVD Extremities: + edema (trace BLE) Skin: no rashes, warm and dry Psychiatric: A+Ox3, euthymic affect Results & Data Vital Signs (Past 12 Hours) Vital Signs Temp Pulse Pulse Resp BP Pulse Ox O2 Del Method 11/26/24 03:00 36.6 C 63 16 88/51 L 97 Room Air 11/25/24 23:00 36.7 C 65 16 86/56 L 95 Room Air 11/25/24 22:01 65 Laboratory Results Cardiac Enzymes 11/25/24 11/26/24 Range/Units 14:41 06:13 AST 72 H (13-39) U/L Troponin I High Sens 15.0 H (0-14) pg/ml CBC 11/26/24 Range/Units 06:13 WBC 6.56 (4.8-10.8) K/ul RBC 4.09 L (4.20-5.40) M/uL Hgb 12.2 (12.0-16.0) g/dl Hct 36.0 L (37.0-47.0) % Plt Count 151 (130-400) K/uL Comprehensive Metabolic Panel 11/26/24 Range/Units 06:13 Sodium 137 (136-145) mmol/L Potassium 3.5 (3.5-5.1) mmol/L Chloride 102 (98-107) mmol/L Carbon Dioxide 26 (21-32) mmol/L BUN 44 H (6-23) mg/dl Creatinine 1.76 H (0.6-1.2) mg/dl Glucose 79 (70-99(Fasting)) mg/dl Calcium 9.7 (8.6-10.3) mg/dl Direct Bilirubin 0.4 H (0-0.2) mg/dl AST 72 H (13-39) U/L ALT 89 H (7-52) U/L Alkaline Phosphatase 51 (34-104) U/L Total Protein 6.3 (6.0-8.3) gm/dl Albumin 3.9 (3.4-5.0) gm/dl Intake and Output 11/25/24 11/26/24 11/26/24 22:59 06:59 14:59 Intake Total 300 / 720 170 / 720 Output Total 250 / 1100 200 / 1100 Balance 50 / -380 -30 / -380 Intake: IV 50 / 50 Albumin 25% 12.5 gm In 50 ml @ 50 / 50 50 mls/hr IV ONE ONE Rx#: [id number] Oral 300 / 670 120 / 670 Output: Urine 250 / 1100 200 / 1100 Other: # Unmeasured Voids 2 Weight 55.6 kg Weight Measurement Method Standing Scale
[2024-11-26 09:11] LABS: Albumin Level 3.9 gm/dl (3.4-5.0); Bilirubin Direct 0.4 mg/dl (0-0.2); Bilirubin,Total 1.5 mg/dl (0.2-1.0); Total Protein 6.3 gm/dl (6.0-8.3)
[2024-11-26 09:27] LABS: Hep B Surface Ag with confirm Negative (Negative)
[2024-11-26 09:32] LABS: Hep C Ab Rflx HepCQuant RNA Negative (Negative)
[2024-11-26] MEDS ORDERED: ONDANSETRON INJ 2 MG/ML 2 ML VIAL IV PRN (13:50)
[2024-11-26] MEDS: LORazepam 0.5 MG TAB PO STA (13:56)
--- NOTE | 2024-11-26 16:02 | Hospitalist Progress Note ---
Date of Service November 26, 2024 Assessment & Plan (1) SOB (shortness of breath): (2) CHF (congestive heart failure): (3) Cardiac defibrillator in situ: (4) Atrial fibrillation: (5) CKD (chronic kidney disease) stage 3, GFR 30-59 ml/min: (6) Dyslipidemia: (7) Hypothyroidism: Plan 69-yo F w/ PMH of HTN, HLD, drug induced cardiomyopathy w/ HFrEF, s/p ICD 03/2015, complete heart block s/p pacemaker defibrillator in 05/2018, pAF s/p cardioversion 12/23/2014 and 02/22/2018 and now permanent atrial fibrillation on Eliquis, CKD III, hypothyroidism, Hfcglti-Wfzvg-Bkfeo disease, breast cancer resented to ER with c/o worsening SOB. Patient reports exertional SOB for past couple of months with progressive worsening over past 2 weeks. She reports orthopnea, exertional dyspnea, on/off chest pain (pins and needles) at rest, intermittent episodes of palpitations and poor appetite. She reports constipation and not having BM in 2 weeks. She feels generally weak. She is being managed for the following: Decompensated heart failure presenting as right sided heart failure symptoms History of: systolic dysfunction (EF 30 to 35%, TTE 2024) & complete heart block s/p ICD/biventricular PPM Underlying pulmonary hypertension Patient presents with shortness of breath, admitting BNP elevated at 1361. Patient reported improvement after IV Lasix in the ED. Cardiology evaled, toprol xl 50 mg bid, aldactone 12.5 mwf. f/u cards in 1-2 weeks on dc. monitor replete electrolytes. I & Os monitoring, FR 2L. Continue telemetry monitoring. 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 RO ACS, likely could be anxiety. trop trends flat. EKG w/ ventricular paced rhythm. Respiratory BioFire and CXR negative. c/w hydroxyzine prn for anxiety. Chronic hypotension: l/t hypoperfusion supported by increased lactic acidosis at presentation. Metoprolol dose decreased to 50 mg bid, c/w same. Lactic acid improved after iv albumin in ED. Transaminitis: LFT elevated at baseline, slight uptrending noted at presentation. possible passive hepatic congestion, patient without abdominal pain complaints. LFT w/ downtrend, repeat LFT In 1 week of dc and f/u w/ pcp for monitoring. Hold statin for now. Other chronic medical conditions: Continue with/resume home meds as and when able. AF status post cardioversion, on Eliquis, pt states she takes 2.5 mg bid. Valvular heart disease (mild MR/TR) History LBBB Hyperlipidemia on statin Rx CKD (baseline crea 1.4): Cr slightly elevated at presentation, doesn't qualify for acute injury. Cr now improving. Breast cancer status post surgery/reconstruction/chemotherapy/tamoxifen/Arimidex Rx Hypothyroidism, euthyroid as of recent outpatient TSH Skin cancer as per records Zwrndeq-Sqxri-Strya disease DVT prophylaxis. Eliquis Full code Dispo: pt/ot , likely dc in AM Patient daughter Ms. Cha Gramajo, contact #[phone]. Text document was generated using [employer] voice recognition software. It may contain grammatical or spelling errors. Kindly contact undersigned for clarification of any documentation item in question. Admission and Anticipated Discharge Date Admission Date: November 24, 2024 Subjective Patient was seen and examined at bedside. Patient was lying in bed, on RA, NAD, resting comfortably. BP low in AM and pt felt dizzy, toprol held. BP improved and symptoms did improve. Patient denies fever/sore throat/nausea/vomiting. Physical Exam Physical Exam: General: no distress, thin elderly female, chronic ill appearing Head: normocephalic, atraumatic Eyes: conjunctiva non-injected, anicteric ENT: normal inspection external ears, nose, mucous membranes moist Neck: supple, trachea midline Lungs: clear, no respiratory distress, no wheezing/rhonchi/rales CV: irregularly irregular, no pretibial edema Abd: normal BS, soft, non-tender Ext: no cyanosis, no calf tenderness Neuro: A&O x 3, no focal deficits noted, normal affect Skin: warm, dry Results & Data Results & Data Vital Signs (Past 12 Hours) Vital Signs Temp Pulse Pulse Resp BP Pulse Ox O2 Del Method 11/26/24 15:35 36.3 C L 63 20 107/75 97 Room Air 11/26/24 12:01 64 18 94/63 L 98 Room Air 11/26/24 08:00 60 11/26/24 08:00 Nasal Cannula 11/26/24 07:00 37.1 C 66 17 93/59 L 99 Room Air O2 Flow Rate 11/26/24 15:35 11/26/24 12:01 11/26/24 08:00 11/26/24 08:00 2 11/26/24 07:00
--- OUTSIDE RECORDS SUMMARY | 2024-11-26 19:28 | External Medical Summary | Summary of Care ---
Author Name Unknown Organization [facility] Address [address] [place] [address] Phone [phone] Care Team Providers Care Drafter Tool Design Name Role Phone Rose Marie Galloway MD Primary Care Provide r Reason for Visit * Reason Onset Date Comments Advice 08/26/2024 Encounter Details Date Type Department Care Team ([facility] st Contact Info) Description 08/26/2024 Telephone Family Medicine [address] [phone] Rose Marie Galloway MD [address] [place] [address] [place] [address] Advice Allergies Active Allergy Reactions Criticality Noted Date Comments Docetaxel 02/14/2011 Chest pain, passed out , could not talk, saw silver round bubbles documented as of this encounter (statuses as of 11/26/2024) Medications OXYCODONE HCL 10 MG PO TABSIndications:p ain as needed Take by mouth every 8 hours as needed . Active Vitamin D3 50 MCG (1999 UT) Oral Capsule Take 1 Capsule by mouth in the morning. 30 Capsule 5 023 Active Levothyroxine Sodium 75 MCG Oral Tablet (Levoxyl)Indicati ons:Hypothyroidis m due to medication TAKE 1 TABLET BY MOUTH EVERY DAY AT LEAST 30 MIN BEFORE BREAKFAST OR OTHER MEDICATION 90 Tablet 3 024 Active Metoprolol Succinate ER 100 MG Oral Tablet Extended Release 24 Hour (toPROL XL)Indications:Pe rmanent atrial fibrillation (HCC),Drug-induce d cardiomyopathy (HCC),HTN, goal below 140/90 TAKE 1 TABLET BY MOUTH TWICE A DAY 180 Tablet 3 024 Active Rosuvastatin Calcium 20 MG Oral Tablet (Crestor)Indicati ons:Dyslipidemia, goal LDL below 100 TAKE 1 TABLET BY MOUTH EVERY DAY 90 Tablet 3 024 Active Spironolactone 25 MG Oral Tablet (Aldactone)Indica tions:HTN, goal below 140/90,Heart failure, systolic, with acute decompensation (HCC) Take 0.5 Tablets by mouth once a day on Friday, Friday, and Friday only. 19 Tablet 3 024 Active Furosemide 40 MG Oral Tablet (Lasix)Indication s:Hypokalemia,Hea rt failure, systolic, with acute decompensation (HCC) TAKE 1 TABLET EVERY OTHER DAY, OR DIRECTED 45 Tablet 3 024 2024 Discontinued Jardiance 10 MG Oral Tablet (Empagliflozin)In dications:Systoli c heart failure, chronic (HCC),Drug-induce d cardiomyopathy (HCC),HTN, goal below 140/90 TAKE 1 TABLET BY MOUTH EVERY DAY IN THE MORNING 90 Tablet 3 024 2024 Discontinued(R efill) Eliquis 5 MG Oral Tablet (Apixaban)Indicat ions:Permanent atrial fibrillation (HCC) TAKE 1 TABLET BY MOUTH TWICE A DAY 180 Tablet 1 024 2024 Discontinued(R efill) Moxifloxacin HCl 0.5 % Ophthalmic Solution (Vigamox) Instill 1 Drop into the right eye in the morning and 1 Drop at noon and 1 Drop in the evening and 1 Drop before bedtime. 3 mL 024 2024 Discontinued(M edication List Clean Up) documented as of this encounter (statuses as of 11/26/2024) Active Problems Problem Noted Date Diagnosed Date NICM (nonischemic cardiomyopathy) 04/19/2024 ICD (implantable cardioverter-defibrillator) in place 04/19/2024 Chronic kidney disease, stage 3b 11/18/2022 Overview: Per CKD protocol Osteoporosis, postmenopausal 11/05/2022 Permanent atrial fibrillation 11/05/2022 Peripheral vascular disease 10/23/2021 Hx of melanoma of skin 12/04/2020 Overview (12/04/2020): 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, Logan II, 11/2020) Hypertensive heart and kidne y [...] 08/23/2014 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 Qnantpg-Xxadc-Sgdgh disease 12/24/2010 Systolic heart failure, chronic 08/03/2009 [...] as of this encounter (statuses as of 11/26/2024) Resolved Problems Problem Noted Date Diagnosed Date [...] as of this encounter (statuses as of 11/26/2024) Immunizations Name Administration Dates Next Due COVID-19 mRNA, LNP-s, No Pre serve, 2-Dose Series (Moderna) 02/12/2021,01/15/2021 Pneumococcal Conjugate Vacci ne, 20-valent (Ocaceyf85) 11/21/2022 Pneumococcal Polysaccharide PPV23 (Pneumovax) 08/12/2006 Seasonal [...] encounter Miscellaneous Notes * Telephone Encounter - Shonda Ballard CMA - 09/10/2024 3:46 PM EST Pt advised of message below state understanding and will have labs done next week sometime. FYI * Telephone Encounter - Shonda Ballard CMA - 08/31/2024 2:15 PM EST Attempted to call patient, unknown male picked up gave him number for pt to call us back at [phone] When patient returns call, ok for BARBARA to relay message, please refer to below documentation. If needed, can transfer to dedicated nurse line. * Telephone Encounter - Rose Marie Galloway MD - 08/26/2024 2:25 PM EST Her PTH in May was normal and her calcium was just slight high. I ordered repeat calcium labs for her so recommend she get that done to determine how soon she should be seen. * Telephone Encounter - Shonda Ballard CMA - 08/26/2024 1:23 PM EST Please advise if you would like to do urgent referral or would you like to send pt else where * Telephone Encounter - Ivy Duran OSA - 08/26/2024 12:16 PM EST Pt and Pt caregiver Silke hanson [facility] Endocrinology appt is Aug, 2025 and was advised by that dept to send referrals elsewhere or issue an urgent referral based on Pt's needs. documented in this encounter Plan of Treatment Upcoming Encounters Date Type Department Care Team (Late st Contact Info) Description 11/30/2024 1:00 PM EST Nurse Only Ancillary [address] [place] [address] [place], Nurse Annual [address] [place] [address] 11/30/2024 2:40 PM EST Office Visit Family Medicine [address] [place] [phone] Marcela Ramirez CRNP [address] [place] [address] [place] [address] 12/21/2024 1:45 PM EDT Imaging Radiology [address] [place] [phone] 12/28/2024 12:30 PM EDT Office Visit Cardiology [address] [place] [address] Graeme Pang PALeia [address] [place] [address] 04/22/2025 12:20 PM EDT Office Visit Dermatology [facility] [address] [place] [address] Cindi Vo PA-C [address] [place] [address] 06/21/2025 1:40 PM EDT Office Visit Family Medicine [address] [place] [phone] Rose Marie Galloway MD [address] [place] [address] [place] [address] 10/21/2025 1:00 PM EST Office Visit Optometry, [place] [address] [place] [address] Raudel Hernandez, MEHNAZ [address] [place] [address] Health Maintenance Due Date Last Done Comments [...] Wellness Visit 11/27/2024 11/27/2023, 11/26/19 23 GFR 05/23/2025 11/23/2024, 09/05, 05/25/2024, Additional history exists CKD PHOS USE SMARTSET 28158 05/25/202505/07, 12/24/2022, 12/05/2021, Additional history exists Cologuard 08/21/2025 08/21/2022, 05/2022, 08/13/2022, Additional history exists Colorectal Cancer Screening 08/21/2025 Depression Screening 10/20/2025 10/20/2024 CKD HGB USE SMARTSET 69548 11/23/202511/23, 11/23/2024, 05/14/2024, Additional history exists TSH 11/23/2025 11/23/2024, 05/07, 11/12/2023, Additional history exists Diabetes Screening 11/23/2027 11/23/2024, 1 11/21/2023, 05/25/2024, Additional history exists DTap/Tdap Vaccines (3 - Td or Tdap) 09/01/2028 09/01/2018, 03/14/2008 Lipid Panel 11/12/2028 11/12/2023, 12/05, 01/24/2022, Additional history exists Pap Smear Discontinued 03/26/2022, 03/06, 11/27/2015, Additional history exists Pneumococcal Vaccine: 50+ Years Completed 11/21/2022, 08/12/2006 VITAMIN D LEVEL ONCE IN A LIFETIME-USE SMARTSET# 12422 Completed 05/25/2024, 06/04/2023, 11/05/2022, Additional history exists [...] this encounter Medical Devices Implanted Type Area Graduate Nurse Device Identifier Shelf Expiration Date Model / Serial / Lot Alloderm 6 X 16cm [place] [facility] [place] LIFE CELL MADDIE [id number] / [id number] / [id number] Description:Alloderm 6 x 16 cm to right breast [id number] - [id number] Implanted:Qty: 1 on 02/05/2007 [place] [facility] [place]: Breast LIFE CELL MADDIE [id number] / [id number] / [id number] Description:ALLODERM TO left breast 6 x 16cm [place] Breast Implant Implanted:Qty: 1 on 02/05/2007 [place] [facility]: Breast MENTOR MADDIE 08/06/2010 [id number] / [id number] / [id number] Description:700ml Breast Imp lant to Right Breast [place] Breast Implant Implanted:Qty: 1 on 02/05/2007 [place] [facility]: Breast MENTOR MADDIE 08/06/2010 350-1697 / [id number] / [id number] Description:[place] Breast Im plant to Left BreaST Graft Fascia Nevin 2x3 [id number] - [id number] Implanted:Qty: 1 on 03/20/2010 at [facility] Right: Eye [employer] 06/06/2014 [id number] / / [id number] Breast Implant 350-1697 Saline - [id number] Implanted:Qty: 1 on 04/20/2011 [place] [facility]: Breast MENTOR MADDIE 04/04/2015 350-1697 / [id number] / [id number] Description:[place] smooth ro und moderate profile saline. Envelope Antibacteral Tyrx - [id number] Implanted:Qty: 1 on 05/14/2024 by Zulema Giordano IV, MD at [facility] [employer] : CRM [id number] 01/30/2025 [id number] / / [id number] Defib [place] Mri Quad Soft Boarder-D - [id number] Implanted:Qty: 1 on 05/14/2024 by Zulema Giordano IV, MD at [facility] [employer] [id number] 07/03/2025 [id number] / [id number] / [id number] S Ring [place] Type 14a Mr-1410 - [id number] Implanted:Qty: 1 on 08/17/2024 by Frank Zuñiga MD at OR [facility] Right: Eye MORCHER [id number] 04/04/2026 MR-1410 / [id number] / [id number] Lens 17.5 [id number] - [id number] Implanted:Qty: 1 on 08/17/2024 by Frank Zuñiga MD at [facility] Right: Eye ANNABELLE : SURGICAL [id number] 03/15/2029 [id number] / [id number] / [id number] documented as of this encounter Results * (ABNORMAL) BASIC METABOLIC PANEL (09/20/2024 10:19 AM EST) BUN 31(H) 6 - 20 mg/dL 09/20/2024 10:55 PM EST [facility] CREATININE 1.4(H) 0.5 - 1.0 mg/dL 09/20/2024 10:55 PM EST [facility] EGFR 42(L) >=60 mL/min 09/20/2024 10:55 PM EST [facility] Comment:eGFR is calculated b ased on the CKD-EPI 2020 equation. SODIUM 144 135 - 146 mmol/L 09/20/2024 10:55 PM EST [facility] POTASSIUM 4.5 3.5 - 5.1 mmol/L 09/20/2024 10:55 PM EST LABORATORY C CHLORIDE 105 98 - 107 mmol/L 09/20/2024 10:55 PM EST LABORATORY C CO2 26 22 - 32 mmol/L 09/20/2024 10:55 PM EST [facility] ANION GAP 13 7 - 15 mmol/L 09/20/2024 10:55 PM EST [facility] GLUCOSE 88 70 - 120 mg/dL 09/20/2024 10:55 PM EST LABORATORY C CALCIUM 10.2 8.4 - 10.2 mg/dL 09/20/2024 10:55 PM EST [facility] Blood Venous blood specimen / Unknown Venipuncture / Unknown 09/20/2024 10:19 AM EST 09/20/2024 10:19 AM EST Rose Marie Galloway MD LAB BLOOD ORDERABLES Final Result [facility] [address] [place] [address] * (ABNORMAL) PTH (09/20/2024 10:19 AM EST) PTH 79(H) 15 - 65 pg/mL 09/20/2024 11:26 PM EST LABORATORY [facility] Blood Venous blood specimen / Unknown Venipuncture / Unknown 09/20/2024 10:19 AM EST 09/20/2024 10:19 AM EST Rose Marie Galloway MD LAB BLOOD ORDERABLES Final Result Performing Organization Address [facility] de Phone Number [facility] [address] [place] [address] documented in this encounter Visit Diagnoses Diagnosis Hypercalcemia- Primary documented in this encounter Advance Directives [...] and were consensually agreed upon. Care Teams Drafter Tool Design Relationship Specialty Start Date End Date Rose Marie Galloway MD NPI: [id number] [place] [address] [place] [address] PCP - General Family Medicine 05/24/14 documented as of this encounter
--- OUTSIDE RECORDS SUMMARY | 2024-11-26 19:28 | External Medical Summary | Summary of Care ---
Author Name Unknown Organization [facility] Address [address] [place] [address] Phone [phone] Care Team Providers Care Assistant Track And Field Coach Name Role Phone Rose Marie Galloway MD Primary Care Provide r Reason for Visit * Reason Onset Date Comments Medication Question 11/03/2024 Encounter Details Date Type Department Care Team (Late st Contact Info) Description 11/03/2024 Telephone Cardiology, [facility] [address] [place] [address] Graeme Pang PA-C [address] [place] [address] Medication Question Allergies Active Allergy Reactions Criticality Noted Date Comments Docetaxel 02/14/2011 Chest pain, passed out , could not talk, saw silver round bubbles documented as of this encounter (statuses as of 11/24/2024) Medications OXYCODONE HCL 10 MG PO TABSIndications:p [...] Friday only. 19 Tablet 3 024 Active Apixaban 5 MG Oral Tablet (Eliquis)Indicati ons:Permanent atrial fibrillation (HCC) Take 1 Tablet by mouth in the morning and 1 Tablet before bedtime. 200 Tablet 3 025 Active Empagliflozin 10 MG Oral Tablet (Jardiance)Indica tions:Systolic heart failure, chronic (HCC),Drug-induce d cardiomyopathy (HCC),HTN, goal below 140/90 Take 1 Tablet by mouth in the morning. 100 Tablet 3 025 Active Furosemide 40 MG Oral Tablet (Lasix)Indication [...] 180 Tablet 1 024 2024 Discontinued(R efill) documented as of this encounter (statuses as of 11/24/2024) Active Problems Problem Noted Date Diagnosed Date NICM (nonischemic cardiomyopathy) 04/19/2024 ICD (implantable cardioverter-defibrillator) in place 04/19/2024 Chronic kidney disease, stage 3b 11/18/2022 Overview: Per CKD protocol Osteoporosis, postmenopausal 11/05/2022 Permanent atrial fibrillation 11/05/2022 Peripheral vascular disease 10/23/2021 Hx of melanoma of skin 12/04/2020 Overview (12/04/2020): 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, [place] II, 11/2020) Hypertensive heart and kidne y [...] 08/23/2014 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 long term care phlebotomist current use of anticoagulant therapy 0 05/12/2006 Overview (07/07/2017): ICD-10 update of inactive term History of breast cancer 03/28/2006 Family history of other cardiovascular diseases 05/14/2005 Overview (12/28/2015): ICD-10 update of inactive term FAMILY HX-BREAST MALIG 05/14/2005 HTN, goal below 140/90 06/26/2001 Blindness of left eye documented as of this encounter (statuses as of 11/24/2024) Resolved Problems Problem Noted Date Diagnosed Date [...] as of this encounter (statuses as of 11/24/2024) Immunizations Name Administration Dates Next Due COVID-19 mRNA, LNP-s, No Pre serve, 2-Dose Series (Moderna) 02/12/2021,01/15/2021 Pneumococcal Conjugate Vacci ne, 20-valent ([id number]) 11/21/2022 Pneumococcal Polysaccharide PPV23 (Pneumovax) 08/12/2006 Seasonal [...] as of this encounter Miscellaneous Notes * Addendum Note - Isi Booth RPh - 11/24/2024 4:13 PM ESTAddended by: ISI BOOTH on: 11/24/2024 04:13 PM Modules accepted: Orders * Telephone Encounter - Isi Booth RPh - 11/24/2024 4:01 PM EST Notified patient of delmer approval. Jardiance and Eliquis Rx transferred to [facility] to be billed through delmer assistance. Isi Booth PharmD [facility] Cardiology Pharmacist Medication Therapy Disease Management 11/24/2024, 4:02 PM * Telephone Encounter - Aileen Borges LPN - 11/24/2024 3:58 PM EST Pt calling clinic stating she has not heard any information on the status of the forms she faxed regarding Eliquis and Jardiance assistance. Note states member was approved. Please advise pt of next steps. * Telephone Encounter - Roula Covarrubias OSA - 11/18/2024 10:30 AM EST Member was approved for pharmacy Chairty * Telephone Encounter - Isi Booth RPh - 11/17/2024 4:55 PM EST Please provide update on referral. Last referral update 11/03. Delmer forms were received 11/10 and no 2 week f/u was completed. Marking high priority given Eliquis free trial card has already been used. Isi Booth PharmD Clinical Pharmacist - C[facility]ule [facility] 11/17/2024 4:56 PM * Telephone Encounter - Isi Booth RPh - 11/10/2024 2:58 PM EST Patient called in stating she faxed forms to [phone] around 1 PM, now checking to confirm it was received. Melvina confirmed receipt. Patient updated. Isi Booth PharmD Clinical Pharmacist - [facility] 11/10/2024 2:58 PM * Telephone Encounter - Isi Booth [facility] - 11/09/2024 4:05 PM EST Called and [...] Eliquis 30 day free trial card at [facility]. Updated patient. She will let us know if she does not receive forms by end of this week. Isi Booth, PharmD Clinical Pharmacist - Capsule [facility] 11/09/2024 4:17 PM * Telephone Encounter - Audrey Reynolds OSA - 11/09/2024 2:03 PM EST Person calling: Kayce Relationship to patient: self Phone/Fax to return call: [phone] Reason for call(brief): Eliquis Pharmacy: [facility] Provider Name:Graeme Pang Detailed message to office:Patient [...] there is any questions Roula Covarrubias Medication Drop Wire Operator II [facility] 11/03/2024,6:27 PM * Telephone Encounter - [...] PM EST Called 30-day free trial into [facility] pharmacy. Brisa - are you able to help with further cost assistance? [facility] Pharmacist also mentioned new medicare program where patients are able to split drug copay up into monthly payments. [facility] attached a handout to patient's prescription with [...] prescription. Patient stated that she went to merchandise pickup/receiving associate the medication and was informed that it would cost over $800. Patient stated she cannot afford that and is asking if there is some type of copay assistance or if there is an alternative medication that is less expensive. Patient can be reached at [phone]. Thank you, Yulisa Zapata Textile Clothing And Footwear Mechanic I [facility] 11/03/2024,1:12 PM * Telephone Encounter - Katlyn Jacobs CPhT - 11/03/2024 1:05 PM EST Pt calling regarding Jardiance, last prescribed by Cardiology. Transferred to specialty tech line for further assistance. Thank you, Katlyn Jacobs CPhT College Instructor II [facility]) 11/03/2024,1:06 PM documented in this encounter Plan of Treatment Upcoming Encounters Date Type Department Care Team (Late st Contact Info) Description 11/30/2024 1:00 PM EST Nurse Only Ancillary [address] [place] [address] [place], Nurse [address] [place] [address] 11/30/2024 2:40 PM EST Office Visit Family Medicine [address] [place] [phone] Marcela Ramirez[address] [place] [address] 12/21/2024 1:45 PM EDT Imaging Radiology [facility] [address] [place] [phone] 12/28/2024 12:30 PM EDT Office Visit Cardiology [address] [place] [address] Graeme Pang PA-C [address] [place] [address] 04/22/2025 12:20 PM EDT Office Visit Dermatology [facility] [address] [place] [address] Cindi Vo PA-C [address] [facility] [place] [address] 06/21/2025 1:40 PM EDT Office Visit Family Medicine [address] [place] [phone] Rose Marie Galloway MD [address] [place] [address] [place] [address] 10/21/2025 1:00 PM EST Office Visit Optometry, [place] [address] [place] [address] Raudel Hernandez, OD [address] [place] [address] Health Maintenance Due Date Last Done Comments [...] Additional history exists CKD PHOS USE SMARTSET 92988 05/25/2025 08/, 12/24/2022, 12/05/2021, Additional history exists Cologuard 08/21/2025 08/21/2022, 05/2022, 08/13/2022, Additional history exists Colorectal Cancer Screening 08/21/2025 Depression Screening 10/20/2025 10/20/2024 CKD HGB USE SMARTSET 87874 11/23/202511/23, 11/23/2024, 05/14/2024, Additional history exists TSH [...] D LEVEL ONCE IN A LIFETIME-USE SMARTSET# 49053 Completed 05/25/2024, 06/04/2023, 11/05/2022, Additional history exists [...] this encounter Medical Devices Implanted Type Area Broke Beater Device Identifier Shelf Expiration Date Model / Serial / Lot Alloderm 6 X 16cm Implanted:Qty: 1 on 02/05/2007 at OR [facility] Right: Breast LIFE CELL MADDIE [id number] / [id number] / [id number] Description:Alloderm 6 x 16 cm to right breast [id number] - [id number] Implanted:Qty: 1 on 02/05/2007 at OR [facility] Left: Breast LIFE CELL MADDIE [id number] / [id number] / [id number] Description:ALLODERM TO left breast 6 x 16cm Bryan Breast Implant Implanted:Qty: 1 on 02/05/2007 at OR [facility] Right: Breast MENTOR MADDIE 08/06/2010 350-1697 / [id number] / [id number] Description:700ml Breast Imp lant to Right Breast Bryan Breast Implant Implanted:Qty: 1 on 02/05/2007 at OR [facility] Left: Breast MENTOR MADDIE 08/06/2010 350-1697 / [id number] / [id number] Description:Bryan Breast Im plant to Left BreaST Graft Fascia Nevin 2x3 80042 - [id number] Implanted:Qty: 1 on 03/20/2010 at OR [facility] Right: Eye [employer] 06/06/2014 [id number] / / [id number] Breast Implant 350-1697 Saline - [id number] Implanted:Qty: 1 on 04/20/2011 at OR [facility] Right: Breast MENTOR MADDIE 04/04/2015 350-1697 / [id number] / [id number] Description:Bryan smooth ro und moderate profile saline. Envelope Antibacteral Tyrx - [id number] Implanted:Qty: 1 on 05/14/2024 by Zulema Giordano IV, MD at [facility] [employer] : CRM [id number] 01/30/2025 [id number] / / [id number] Defib Rufe Mri Quad User Experience Designer-D - [id number] Implanted:Qty: 1 on 05/14/2024 by Zulema Giordano IV, MD at [facility] [employer] [id number] 07/03/2025 [id number] / [id number] / [id number] S Ring Morcher Type 14a Mr-1410 - [id number] Implanted:Qty: 1 on 08/17/2024 by Frank Zuñiga MD at OR [facility] Right: Eye MORCHER [id number] 04/04/2026 MR-1410 / [id number] / [id number] Lens 17.5 [id number] - [id number] Implanted:Qty: 1 on 08/17/2024 by Frank Zuñiga MD at OR [facility] Right: Eye ANNABELLE : SURGICAL [id number] 03/15/2029 [id number] / [id number] / [id number] documented as of this encounter Visit Diagnoses Diagnosis Permanent atrial fibrillation (HCC) Atrial fibrillation Systolic heart failure, chronic (HCC) Chronic systolic heart failure Drug-induced cardiomyopathy (HCC) Secondary cardiomyopathy, unspecified HTN, goal below 140/90 Unspecified essential hypertension documented in this encounter Advance Directives * [...] were consensually agreed upon. Care Teams Assistant Track And Field Coach Relationship Specialty Start Date End Date Rose Marie Galloway MD [address] [place] [address] [place] [address] PCP - General Family Medicine 05/24/14 documented as of this encounter
--- OUTSIDE RECORDS SUMMARY | 2024-11-26 19:28 | External Medical Summary | Summary of Care ---
Author Name Unknown Organization [facility] Address [address] [place] [address] Phone [phone] Care Team Providers Care Stubber Name Role Phone Rose Marie Galloway MD Primary Care Provide r Reason for Visit * Reason Onset Date Comments Advice 11/24/2024 Encounter Details Date Type Department Care Team (Late st Contact Info) Description 11/24/2024 Telephone Cardiology, [facility] [address] [place] [address] Graeme Pang PA-C [address] [place] [phone] Advice Allergies Active Allergy Reactions Criticality Noted Date Comments Docetaxel 02/14/2011 Chest pain, passed out , could not talk, saw silver round bubbles documented as of this encounter (statuses as of 11/25/2024) Medications OXYCODONE HCL 10 MG PO TABSIndications:pa in as needed Take by mouth every 8 hours as needed . Active Vitamin D3 50 MCG (1999 UT) Oral Capsule Take 1 Capsule by mouth in the morning. 30 Capsule 5 3 Active Levothyroxine Sodium 75 MCG Oral Tablet [...] EVERY DAY 90 Tablet 3 4 Active Spironolactone 25 MG [...] OR DIRECTED 45 Tablet 1 5 Active Apixaban 5 MG Oral Tablet (Eliquis)Indicatio ns:Permanent atrial fibrillation (HCC) Take 1 Tablet by mouth in the morning and 1 Tablet before bedtime. 200 Tablet 3 5 Active Empagliflozin 10 MG Oral Tablet (Jardiance)Indicat ions:Systolic heart failure, chronic (HCC),Drug-induced cardiomyopathy (HCC),HTN, goal below 140/90 Take 1 Tablet by mouth in the morning. 100 Tablet 3 5 Active documented as of this encounter (statuses as of 11/25/2024) Active Problems Problem Noted Date Diagnosed Date NICM (nonischemic cardiomyopathy) 04/19/2024 ICD (implantable cardioverter-defibrillator) in place 04/19/2024 Chronic kidney disease, stage 3b 11/18/2022 Overview: Per CKD protocol Osteoporosis, postmenopausal 11/05/2022 Permanent atrial fibrillation 11/05/2022 Peripheral vascular disease 10/23/2021 Hx of melanoma of skin 12/04/2020 Overview (12/04/2020): 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, [place] II, 11/2020) Hypertensive heart and kidne y [...] 08/23/2014 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 meterman current use of anticoagulant therapy 0 05/12/2006 Overview (07/07/2017): ICD-10 update of inactive term History of breast cancer 03/28/2006 Family history of other cardiovascular diseases 05/14/2005 Overview (12/28/2015): ICD-10 update of inactive term FAMILY HX-BREAST MALIG 05/14/2005 HTN, goal below 140/90 06/26/2001 Blindness of left eye documented as of this encounter (statuses as of 11/25/2024) Resolved Problems Problem Noted Date Diagnosed Date [...] as of this encounter (statuses as of 11/25/2024) Immunizations Name Administration Dates Next Due COVID-19 mRNA, LNP-s, No Pre serve, 2-Dose Series (Moderna) 02/12/2021,01/15/2021 Pneumococcal Conjugate Vacci ne, 20-valent (Lpuvree60) 11/21/2022 Pneumococcal Polysaccharide PPV23 (Pneumovax) 08/12/2006 Seasonal [...] Telephone Encounter - Marcelino Hines LPN - 11/24/2024 4:45 PM EST Called ED and made aware. Faxed note and snapshot. * Telephone Encounter - Graeme Pang PA-C - 11/24/2024 4:38 PM EST Patient called personally. Patient states I can not breathe. It feels like someone is sitting onmy chest. This has been going on for a couple of months now." No cough or chest congestion, just pressure on the chest. Unable to sleep in bed due to orthopnea and PND, sleeping in a lounge chair. Occasionally with lower extremity swelling. Notes weight gain of 3 lb with recent evaluation in [place]. Current diuretic regimen is furosemide 20 mg every other day, spironolactone 12.5 mg on Friday, Friday, and Friday. Compliant with Eliquis twice per day. Blood pressure tends to run low, with occasional lightheadedness and dizziness. Patient unable to carry on a conversation due to significant dyspnea. Options of management discussed, inpatient versus outpatient. Recommend referral to [facility], imaging, inpatient evaluation and treatment. Will likely require IV diuresis, may warrant reduction in metoprolol dosing pending blood pressures, other. Graeme Pang PA-C Department of Cardiology * Telephone Encounter - Aileen Borges LPN - 11/24/2024 3:40 PM EST Main complaint is SOB on going, but worsened over the past few days. Feels heaviness in chest. SPO2 98% checked while on phone. Pt having difficult time talking. Weight gain Yes - 3lb up yesterday - took furosemide and spironolactone today as prescribed, statesmedication is not helping sob. Edema Denies Abdominal distention No Lack of appetite Yes - unable to eat d/t discomfort with breathing. Recent home weights: up 3lb. Exacerbating factors: Has the patient missed any medications? No Has there been a change in medications? No Has there been any recent steroid use? No Has there been any dietary indiscretions? No Patient is currently taking: all meds as prescribed. Reviewed med list. Saw PCP yesterday, recommended she stop metoprolol - pt would like cardio input before stopping. * Telephone Encounter - Moiz Carlos OSA - 11/24/2024 3:35 PM EST Person calling: Kayce Doherty Relationship to patient: self Phone/Fax to return call: [phone] Reason for call(brief): Advice Pharmacy: N/A Provider Name: Graeme Pang Detailed message to office: Patient calling to advise she is having SOB issues while at rest and with activity. Patient advised this has been going on for a while now. Patient advised she was seen by a provider on 11/22/24 and the provider was talking about discontinuing Metoprolol. Transferring call to Cardio [facility] Nurses. Thank You, Moiz Richards [phone] documented in this encounter Plan of Treatment Upcoming Encounters Date Type Department Care Team (Late st Contact Info) Description 11/30/2024 1:00 PM EST Nurse Only Ancillary [address] [place] [address] [place], Nurse [address] [place] [address] 11/30/2024 2:40 PM EST Office Visit Family [address] [place] [phone] Marcela Ramirez CRNP [address] [place] [address] [place] [address] 12/21/2024 1:45 PM EDT Imaging Radiology [address] [place] [phone] 12/28/2024 12:30 PM EDT Office Visit Cardiology [address] [place] [address] Graeme Pang PALeia [address] [place] [address] 04/22/2025 12:20 PM EDT Office Visit Dermatology [facility] [address] [place] [address] Cindi Vo PA-C [address] [place] [address] 06/21/2025 1:40 PM EDT Office Visit Family Medicine [address] [place] [phone] Rose Marie Galloway MD [address] [place] [address] [place] [address] 10/21/2025 1:00 PM EST Office Visit Optometry, [place] [address] [place] [address] Raudel Hernandez, MEHNAZ [address] [place] [address] Health Maintenance Due Date Last Done Comments [...] Additional history exists CKD PHOS USE SMARTSET 83189 05/25/202505/07, 12/24/2022, 12/05/2021, Additional history exists Cologuard 08/21/2025 08/21/2022, 05/2022, 08/13/2022, Additional history exists Colorectal Cancer Screening 08/21/2025 Depression Screening 10/20/2025 10/20/2024 CKD HGB USE SMARTSET 15644 11/23/202511/23, 11/23/2024, 05/14/2024, Additional history exists TSH [...] D LEVEL ONCE IN A LIFETIME-USE SMARTSET# 06191 Completed 05/25/2024, 06/04/2023, 11/05/2022, Additional history exists [...] this encounter Medical Devices Implanted Type Area Tank Truck Milk Receiver Device Identifier Shelf Expiration Date Model / Serial / Lot Alloderm 6 X 16cm Implanted:Qty: 1 on 02/05/2007 at [place] [facility] Right: Breast LIFE CELL MADDIE [id number] / [id number] / [id number] Description:Alloderm 6 x 16 cm to right breast [id number] - [id number] Implanted:Qty: 1 on 02/05/2007 at OR [facility] Left: Breast LIFE CELL MADDIE [id number] / [id number] / [id number] Description:ALLODERM TO left breast 6 x 16cm [place] Breast Implant Implanted:Qty: 1 on 02/05/2007 at OR [facility] Right: Breast MENTOR MADDIE 08/06/2010 350-1697 / [id number] Description:700ml Breast Imp lant to Right Breast [place] Breast Implant Implanted:Qty: 1 on 02/05/2007 at OR [facility] Left: Breast MENTOR MADDIE 08/06/2010 350-1697 / [id number] Description:[place] Breast Im plant to Left BreaST Graft Fascia Nevin 2x3 85256 - [id number] Implanted:Qty: 1 on 03/20/2010 at OR [facility] Right: Eye [employer] 06/06/2014 80860 / / [id number] Breast Implant 350-1697 Saline - [id number] Implanted:Qty: 1 on 04/20/2011 at OR [facility] Right: Breast MENTOR MADDIE 04/04/2015 350-1697 / [id number] / [id number] Description:[place] smooth ro und moderate profile saline. Envelope Antibacteral Tyrx - [id number] Implanted:Qty: 1 on 05/14/2024 by Zulema Giordano IV, MD at [facility] [employer] : CRM [id number] 01/30/2025 CMRM6 133 / / [id number] Defib [place] Mri Quad Mammalogy Teacher-D - [id number] Implanted:Qty: 1 on 05/14/2024 by Zulema Giordnao IV, MD at [facility] [employer] [id number] 07/03/2025 [id number] / [id number] / [id number] S Ring Morcher Type 14a Mr-1410 - [id number] Implanted:Qty: 1 on 08/17/2024 by Frank Zuñiga MD at OR [facility] Right: Eye MORCHER [id number] 04/04/2026 MR-1410 / [id number] / [id number] Lens 17.5 [id number] - [id number] Implanted:Qty: 1 on 08/17/2024 by Frank Zuñiga MD at OR [facility] Right: Eye ANNABELLE : SURGICAL [id number] 03/15/2029 [id number] / [id number] / [id number] documented as of this encounter Advance [...] and were consensually agreed upon. Care Teams Stubber Relationship Specialty Start Date End Date Rose Marie Galloway MD [address] [place] [address] [place] [phone] PCP - General Family Medicine 05/24/14 documented as of this encounter
--- OUTSIDE RECORDS SUMMARY | 2024-11-26 19:28 | External Medical Summary | Summary of Care ---
Author Name Unknown Organization [facility] Address [address] [place] [address] Phone [phone] Care Team Providers Care Expressive Therapist Name Role Phone Rose Marie Galloway MD Primary Care Provide r Reason for Visit * Reason Onset Date Comments Medication Question 11/03/2024 Encounter Details Date Type Department Care Team (Late st Contact Info) Description 11/03/2024 Telephone Cardiology, [facility] [address] [place] [address] Graeme Pang PA-C [address] [place] [address] Medication Question Allergies Active Allergy Reactions Criticality [...] Overview (12/04/2020): 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, Beckemeyer II, 11/2020) Hypertensive heart and kidne y [...] 08/23/2014 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 director personal current use of anticoagulant therapy 0 05/12/2006 [...] (Moderna) 02/12/2021,01/15/2021 Pneumococcal Conjugate Vacci ne, 20-valent (Omjyslk24) 11/21/2022 Pneumococcal Polysaccharide PPV23 (Pneumovax) 08/12/2006 Seasonal [...] approval. Jardiance and Eliquis Rx transferred to [facility] to be billed through delmer assistance. Isi Booth PharmD [facility] Cardiology Pharmacist Medication Therapy Disease Management [...] used. Isi Booth PharmD Clinical Pharmacist - [facility] 11/17/2024 4:56 PM * Telephone Encounter - Isi Booth RPh - 11/10/2024 2:58 PM EST Patient called in stating she faxed forms to [phone] around 1 PM, now checking to confirm it was received. Melvina confirmed receipt. Patient updated. Isi Booth PharmD Clinical Pharmacist - [facility] 11/10/2024 2:58 PM * Telephone Encounter - Isi Botoh [facility] - 11/09/2024 4:05 PM EST Called [...] Eliquis 30 day free trial card at [facility]. Updated patient. She will let us know if she does not receive forms by end of this week. Isi Booth, PharmD Clinical Pharmacist - [facility] 11/09/2024 4:17 PM * Telephone Encounter - Audrey Reynolds OSA - 11/09/2024 2:03 PM EST Person calling: Kayce Relationship to patient: self Phone/Fax to return call: [phone] Reason for call(brief): Eliquis Pharmacy: [facility] Provider Name:Graeme Pang Detailed message [...] there is any questions Roula Covarrubias Medication Mental Health Technician II [facility] 11/03/2024,6:27 PM * Telephone Encounter - Iman [...] PM EST Called 30-day free trial into [facility] pharmacy. Brisa - are you able to help with further cost assistance? [facility] Pharmacist also mentioned new medicare program where patients are able to split drug copay up into monthly payments. [facility] attached a handout to patient's [...] prescription. Patient stated that she went to fish bait picker the medication and was informed that it would cost over $800. Patient stated she cannot afford that and is asking if there is some type of copay assistance or if there is an alternative medication that is less expensive. Patient can be reached at [phone]. Thank you, Yulisa Zapata Fisheries Officer I [facility] 11/03/2024,1:12 PM * Telephone Encounter - Katlyn Jacobs CPhT - 11/03/2024 1:05 PM EST Pt calling regarding Jardiance, last prescribed by Cardiology. Transferred to specialty tech line for further assistance. Thank you, Katlyn Jacobs CPhT [employer]ographers[employer] Model II [facility] 11/03/2024,1:06 PM documented in this encounter Plan of Treatment Upcoming Encounters Date Type Department Care Team (Late st Contact Info) Description 11/30/2024 1:00 PM EST Nurse Only Ancillary [address] [place] [address] [place], Nurse [address] [place] [address] 11/30/2024 2:40 PM EST Office Visit Family Medicine [address] [place] [phone] Marcela Ramirez[address] [place] [address] 12/21/2024 1:45 PM EDT Imaging Radiology [facility] [address] [place] [phone] 12/28/2024 12:30 PM EDT Office Visit Cardiology [address] [place] [address] Graeme Pang PA-C [address] [place] [address] 04/22/2025 12:20 PM EDT Office Visit Dermatology [facility] [address] [place] [address] Cindi Vo PA-C [address] [facility] [address] 06/21/2025 1:40 PM EDT Office Visit Family Medicine [address] [place] [address] Rose Marie Galloway MD [address] [place] [address] [place] [address] 10/21/2025 1:00 PM EST Office Visit Optometry, [place] [address] [place] [address] Raudel Hernandez, OD [address] [place] [address] Health Maintenance Due Date Last Done Comments [...] Additional history exists CKD PHOS USE SMARTSET 43041 05/25/2025 08/, 12/24/2022, 12/05/2021, Additional history exists Cologuard 08/21/2025 08/21/2022, 05/2022, 08/13/2022, Additional history exists Colorectal Cancer Screening 08/21/2025 Depression Screening 10/20/2025 10/20/2024 CKD HGB USE SMARTSET 03088 11/23/202511/23, 11/23/2024, 05/14/2024, Additional history exists TSH [...] D LEVEL ONCE IN A LIFETIME-USE SMARTSET# 09327 Completed 05/25/2024, 06/04/2023, 11/05/2022, Additional history exists [...] this encounter Medical Devices Implanted Type Area Apartment Maintenance Technician Device Identifier Shelf Expiration Date Model / Serial / Lot Alloderm 6 X 16cm Implanted:Qty: 1 on 02/05/2007 at OR [facility] Right: Breast LIFE CELL MADDIE [id number] / [id number] / [id number] Description:Alloderm 6 x 16 cm to right breast [id number] - [id number] Implanted:Qty: 1 on 02/05/2007 at OR [facility] Left: Breast LIFE CE[employer] MADDIE [id number] / [id number] / [id number] Description:ALLODERM TO left breast 6 x 16cm [place] Breast Implant Implanted:Qty: 1 on 02/05/2007 at OR [facility] Right: Breast MENTOR MADDIE 08/06/2010 350-1697 / [id number] / [id number] Description:700ml Breast Imp lant to Right Breast [place] Run Breast Implant Implanted:Qty: 1 on 02/05/2007 at OR [facility] Left: Breast MENTOR MADDIE 08/06/2010 350-1697 / [id number] / [id number] Description:Broad Run Breast Im plant to Left BreaST Graft Fascia Nevin 2x3 09689 - [id number] Implanted:Qty: 1 on 03/20/2010 at OR [facility] Right: Eye [employer] 06/06/2014 00418 / / [id number] Breast Implant 350-1697 Saline - [id number] Implanted:Qty: 1 on 04/20/2011 at OR [facility] Right: Breast MENTOR MADDIE 04/04/2015 350-1697 / [id number] / [id number] Description:[place] Run smooth ro und moderate profile saline. Envelope Antibacteral Tyrx - [id number] Implanted:Qty: 1 on 05/14/2024 by uZlema Giordano IV, MD at [facility] [employer] : CRM [id number] 01/30/2025 [id number] / / [id number] Defib Ollie Mri Quad Audio Visual Collections Coordinator-D - [id number] Implanted:Qty: 1 on 05/14/2024 by Zulema Giordano IV, MD at [facility] [employer] [id number] 07/03/2025 [id number] / [id number] / [id number] S Ring Morcher Type 14a Mr-1410 - [id number] Implanted:Qty: 1 on 08/17/2024 by Frank Zuñiga MD at OR [facility] Right: Eye MORCHER [id number] 04/04/2026 MR-1410 / [id number] / [id number] Lens 17.5 [id number] - [id number] Implanted:Qty: 1 on 08/17/2024 by Frank Zuñiga MD at OR [facility] Right: Eye ANNABELLE : SURGICAL [id number] 03/15/2029 [id number] / [id number] / [id number] documented as of this encounter Visit [...] and were consensually agreed upon. Care Teams Expressive Therapist Relationship Specialty Start Date End Date Rose Marie Galloway MD [address] [place] [address] [place] [address] PCP - General Family Medicine 05/24/14 documented as of this encounter
[2024-11-27] MEDS: EMPAGLIFLOZIN 10 MG TAB PO SCH (08:20)
[2024-11-27 08:59] LABS: BUN Creatinine Ratio 25.8 (10-20); Calcium 10.1 mg/dl (8.6-10.3); Creatinine Clr Calc Pharmacy 25.4 ml/min; Magnesium 2.4 mg/dl (1.7-2.4); Potassium 3.9 mmol/L (3.5-5.1)
--- NOTE | 2024-11-27 14:13 | Hospitalist Progress Note ---
Date of Service November 27, 2024 Assessment & Plan (1) SOB (shortness of breath): (2) CHF (congestive heart failure): (3) Cardiac defibrillator in situ: (4) Atrial fibrillation: (5) CKD (chronic kidney disease) stage 3, GFR 30-59 ml/min: (6) Dyslipidemia: (7) Hypothyroidism: Plan 69-yo F w/ PMH of HTN, HLD, drug induced cardiomyopathy w/ HFrEF, s/p ICD 03/2015, complete heart block s/p pacemaker defibrillator in 05/2018, pAF s/p cardioversion 12/23/2014 and 02/22/2018 and now permanent atrial fibrillation on Eliquis, CKD III, hypothyroidism, Yonyjww-Gunic-Jkiza disease, breast cancer resented to ER with c/o worsening SOB. Patient reports exertional SOB for past couple of months with progressive worsening over past 2 weeks. She reports orthopnea, exertional dyspnea, on/off chest pain (pins and needles) at rest, intermittent episodes of palpitations and poor appetite. She reports constipation and not having BM in 2 weeks. She feels generally weak. She is being managed for the following: Decompensated heart failure presenting as right sided heart failure symptoms History of: systolic dysfunction (EF 30 to 35%, TTE 2024) & complete heart block s/p ICD/biventricular PPM Underlying pulmonary hypertension Patient presents with shortness of breath, admitting BNP elevated at 1361. Patient reported improvement after IV Lasix in the ED. Cardiology evaled, toprol xl 50 mg bid, aldactone 12.5 mwf. f/u cards in 1-2 weeks on dc. monitor replete electrolytes. I & Os monitoring, FR 2L. Continue telemetry monitoring. 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 ruled out ACS, likely could be anxiety. trop trends flat. EKG w/ ventricular paced rhythm. Respiratory BioFire and CXR negative. c/w hydroxyzine prn for anxiety. pt agreeable for escitalopram for anxiety, will start. pt to maintain f/u w/ pcp for ongoing monitoring/mx. Chronic hypotension: l/t hypoperfusion supported by increased lactic acidosis at presentation. Metoprolol dose decreased to 50 mg bid, c/w same. Lactic acid improved after iv albumin in ED. Transaminitis: LFT elevated at baseline, slight uptrending noted at presen tation. possible passive hepatic congestion, patient without abdominal pain complaints. LFT w/ downtrend, repeat LFT In 1 week of dc and f/u w/ pcp for monitoring. Hold statin for now. Other chronic medical conditions: Continue with/resume home meds as and when able. AF status post cardioversion, on Eliquis, pt states she takes 2.5 mg bid. Valvular heart disease (mild MR/TR) History LBBB Hyperlipidemia on statin Rx CKD (baseline crea 1.4): Cr slightly elevated at presentation, doesn't qualify for acute injury. Cr now improving. Breast cancer status post surge ry/reconstruction/chemotherapy/tamoxifen/Arimidex Rx Hypothyroidism, euthyroid as of recent outpatient TSH Skin cancer as per records Rstqtre-Pzeah-Qobwr disease DVT prophylaxis. Eliquis Full code Dispo: pt/ot eval pending, pt states she doesn't have ride today so she would like to go mack. Patient daughter Ms. Cha Gramajo, contact #[phone]. Text document was generated using Periscape voice recognition software. It may contain grammatical or spelling errors. Kindly contact undersigned for clarification of any documentation item in question. Admission and Anticipated Discharge Date Admission Date: November 24, 2024 Subjective Patient was seen and examined at bedside. Patient was lying in bed, on RA, NAD, resting comfortably. No new complaints Patient denies fever/sore throat/nausea/vomiting. Physical Exam Physical Exam: General: no distress, thin elderly female, chronic ill appearing Head: normocephalic, atraumatic Eyes: conjunctiva non-injected, anicteric ENT: normal inspection external ears, nose, mucous membranes moist Neck: supple, trachea midline Lungs: clear, no respiratory distress, no wheezing/rhonchi/rales CV: irregularly irregular, no pretibial edema Abd: normal BS, soft, non-tender Ext: no cyanosis, no calf tenderness Neuro: A&O x 3, no focal deficits noted, normal affect Skin: warm, dry Results & Data Results & Data Vital Signs (Past 12 Hours) Vital Signs Temp Pulse Pulse Resp BP Pulse Ox O2 Del Method 11/27/24 11:06 36.3 C L 72 18 102/70 99 Room Air 11/27/24 07:33 36.4 C L 64 18 99/66 L 98 Room Air 11/27/24 03:15 36.4 C L 69 20 97/66 L 100 Room Air
[2024-11-27 14:27] LABS: Hepatitis A Antibody IgM NON-REACTIVE (NON-REACTIVE); Hepatitis B Core Antibody IgM NON-REACTIVE (NON-REACTIVE)
[2024-11-27] MEDS: ESCITALOPRAM OXALATE 10 MG TAB PO SCH (15:56)
[2024-11-28 07:53] LABS: Albumin Level 3.6 gm/dl (3.4-5.0); BUN Creatinine Ratio 28.5 (10-20); Bilirubin Direct 0.7 mg/dl (0-0.2); Bilirubin,Total 2.1 mg/dl (0.2-1.0); Calcium 9.6 mg/dl (8.6-10.3); Creatinine Clr Calc Pharmacy 31.4 ml/min; Magnesium 2.3 mg/dl (1.7-2.4); Potassium 3.9 mmol/L (3.5-5.1)
[2024-11-28 08:18] VITALS: TEMP 97.9
--- NOTE | 2024-11-28 11:03 | Discharge Summary ---
Date of Service November 28, 2024 Admission HPI Per Admitting Provider Patient is 69-year-old female with PMH HTN, HLD, history drug induced cardiomyopathy with HFrEF, s/p ICD 03/2015, history complete heart block s/p pacemaker defibrillator in 05/2018, paroxysmal atrial fibrillation s/p cardioversion 12/23/2014 and 02/22/2018 and now permanent atrial fibrillation, anticoagulated on Eliquis, CKD III, hypothyroidism, Ipdzhdn-Zzmkn-Dheaw disease, history of breast cancer and others listed below presented to ER with c/o worsening SOB. Patient reports exertional SOB for past couple of months with progressive worsening over past 2 weeks. She reports orthopnea, exertional dyspnea. Also states been having intermittent chest pains described as "prickling pain" that occurs at rest and self resolves within seconds. She states has also been having chest heaviness. Reports some intermittent episodes of palpitations. States over past year has had 80 pound weight loss. She states yesterday had 3 pound gain. She has noticed some swelling to BLE. 2 days ago patient took 25 mg of home spironolactone instead of her regular dose of 12.5 mg on Mon, Wed, Fri. She feels legs less swollen since but hasn't noticed change in her SOB. Also having dizziness with standing and walking. Last week had near syncopal episode while walking at gas station. She states that her blood pressures run on low side chronically. She reports decreased appetite and decreased oral intake. She reports constipation and not having BM in 2 weeks. She feels generally weak. Seen PCPs office yesterday 11/23/2024 for shortness of breath and had labs. Denies fever, diaphoresis, N/V/D, vision changes, neck pain, cough, sore throat, choking, otalgia, rhinorrhea, abdominal pain, paresthesias, rashes, urinary symptoms. Per outpatient chart review: Cr: 1.4 on 09/20/2024 Cr: 1.8 on 11/23/2024 10/14/2024 echo: EF: 30-34%, severe diffuse LV hypokinesis, right atrium severely enlarged, left ventricular diastolic function is abnormal, left ventricular diastolic filling pressure is elevated, mild MR, mild TR, mild pulmonary hypertension Admission Exam Per Admitting Provider General: no distress, thin elderly female, chronic ill appearing Head: normocephalic, atraumatic Eyes: conjunctiva non-injected, anicteric ENT: normal inspection external ears, nose, mucous membranes moist Neck: supple, trachea midline Lungs: clear, no respiratory distress, no wheezing/rhonchi/rales CV: irregularly irregular, no pretibial edema Abd: normal BS, soft, non-tender Ext: no cyanosis, no calf tenderness Neuro: A&O x 3, no focal deficits noted, normal affect Skin: warm, dry Principal Diagnosis Decompensated heart failure presenting as right sided heart failure symptoms History of: systolic dysfunction (EF 30 to 35%, TTE 2024) & complete heart block s/p ICD/biventricular PPM Underlying pulmonary hypertension Likely anxiety Discharge Exam General: no distress, thin elderly female, chronic ill appearing Head: normocephalic, atraumatic Eyes: conjunctiva non-injected, anicteric ENT: normal inspection external ears, nose, mucous membranes moist Neck: supple, trachea midline Lungs: clear, no respiratory distress, no wheezing/rhonchi/rales CV: irregularly irregular, no pretibial edema Abd: normal BS, soft, non-tender Ext: no cyanosis, no calf tenderness Neuro: A&O x 3, no focal deficits noted, normal affect Skin: warm, dry Discharge Data Allergies Allergy/AdvReac Type Severity Reaction Status Date / Time docetaxel Allergy Severe Chest Unverified 11/24/24 20:58 pain, syncope, unable to talk, visual disturbances Consultations 11/24/24 19:34 ED Decision to Admit Stat 11/24/24 22:39 Consult Cardiology Routine Hospital Course (1) SOB (shortness of breath): (2) CHF (congestive heart failure): (3) Cardiac defibrillator in situ: (4) Atrial fibrillation: (5) CKD (chronic kidney disease) stage 3, GFR 30-59 ml/min: (6) Dyslipidemia: (7) Hypothyroidism: Plan 69-yo F w/ PMH of HTN, HLD, drug induced cardiomyopathy w/ HFrEF, s/p ICD 03/2015, complete heart block s/p pacemaker defibrillator in 05/2018, pAF s/p cardioversion 12/23/2014 and 02/22/2018 and now permanent atrial fibrillation on Eliquis, CKD III, hypothyroidism, Alkpttr-Qkufp-Pysio disease, breast cancer resented to ER with c/o worsening SOB. Patient reports exertional SOB for past couple of months with progressive worsening over past 2 weeks. She reports orthopnea, exertional dyspnea, on/off chest pain (pins and needles) at rest, intermittent episodes of palpitations and poor appetite. She reports constipation and not having BM in 2 weeks. She feels generally weak. She was managed for the following: Decompensated heart failure presenting as right sided heart failure symptoms History of: systolic dysfunction (EF 30 to 35%, TTE 2024) & complete heart block s/p ICD/biventricular PPM Underlying pulmonary hypertension Patient presents with shortness of breath, admitting BNP elevated at 1361. Patient reported improvement after IV Lasix in the ED. Cardiology evaled, toprol xl 50 mg bid, aldactone 12.5 mwf. f/u cards in 1-2 weeks on dc. monitor replete electrolytes. I & Os monitoring, FR 2L. Continue telemetry monitoring. Chest discomfort, palpitations: pt reported intermitted chest "prickling pain" and palpitations [employer]. ruled out ACS, likely could be anxiety. trop trends flat. EKG w/ ventricular paced rhythm. Respiratory BioFire and CXR negative. c/w hydroxyzine prn for anxiety. pt agreeable for escitalopram for anxiety, started 11/28. pt to maintain f/u w/ pcp for ongoing monitoring/mx. Chronic hypotension: l/t hypoperfusion supported by increased lactic acidosis at presentation. Metoprolol dose decreased to 50 mg bid, c/w same. Lactic acid improved after iv albumin in ED. Transaminitis: LFT elevated at baseline, slight uptrending noted at presentation. possible passive hepatic congestion, patient without abdominal pain complaints. LFT w/ downtrend, repeat LFT In 1 week of dc and f/u w/ pcp for monitoring. LFT towards her baseline. f/u pcp for ongoing eval/monitoring. Other chronic medical conditions: Continue with/resume home meds as and when able. AF status post cardioversion, on Eliquis, pt states she takes 2.5 mg bid. Valvular heart disease (mild MR/TR) History LBBB Hyperlipidemia on statin Rx CKD (baseline crea 1.4): Cr slightly elevated at presentation, doesn't qualify for acute injury. Cr now improving. Breast cancer status post surgery/reconstruction/chemotherapy/tamoxifen/Arimidex Rx Hypothyroidism, euthyroid as of recent outpatient TSH Skin cancer as per records Qpbubwn-Hnjpz-Yimoc disease DVT prophylaxis. Tamikoelvira Full code Dispo: pt/ot jessy pending, pt states she doesn't have ride today so she would li ke to go mack. Patient daughter Ms. Cha Gramajo, contact #[phone]. Patient does not want to go to SNF and does not want home health. Patient is being discharged to home with family support with following instructions at the point of discharge: Follow-up with your primary care physician within a week time and likely you will need labs CBC/CMP/magnesium/phosphorus. Cardiology evaluated you while in hospital, continue your metoprolol at 50 mg twice a day, continue with Aldactone 12.5 mg Friday/Friday/Friday. Follow-up with cardiology in 1 to 2 weeks time upon discharge. For anxiety, you have been started on escitalopram, recommend that you follow-up with PCP for ongoing evaluation/management/dose adjustments. For your elevated liver enzymes at baseline, continue to follow-up with your PCP office for ongoing monitoring/evaluation. Take your medications as prescribed. Please make sure that you are able to get your medications today by calling your pharmacy before you leave the hospital so that your treatment continuity is not broken. Text document was generated using [employer] voice recognition software. It may contain grammatical or spelling errors. Kindly contact undersigned for clarification of any documentation item in question. Home Health Attestation I certify that this patient is under my care and that I, or a physicians sales service assistant working with me, had a face to-face encounter that meets the home health [id number] encounter requirements with this patient. The encounter with the patient was in whole, or in part, for the following medical condition, which is the primary reason for home health care (list medical condition): I certify that, based on my findings, the following services are medically necessary home health services: My clinical findings support the need for the above services because: Further, I certify that my clinical findings support that this patient is homebound (i.e. absences from home require considerable and taxing effort and are for medical reasons or restoration services or infrequently or of short duration when for other reasons) because: Certification for Home Health Services: Based on the above findings, I certify that this patient is confined to the home and needs intermittent mcc care, physical therapy and/or speech therapy or continues to need occupational therapy. The patient is under my care, and I have initiated the establishment of the plan of care. This patient will be followed by a physician who will periodically review the plan of care. Total Time Total Time Spent Total Time Spent (In Minutes): 35 Discharge Plan Discharge Items Patient Disposition: Home - Self-Care Reason For Visit: SOB Discharge Diagnosis: Decompensated heart failure presenting as right sided heart failure symptoms History of: systolic dysfunction (EF 30 to 35%, TTE 2024) & complete heart block s/p ICD/biventricular PPM Underlying pulmonary hypertension Likely anxiety Condition on Discharge: Fair Activity: Resume your previous activity Non-emergency contact: Primary Care Provider Call non-emergency contact if: you have any medication questions and your symptoms worsen Follow-up/Referrals: Rose Marie Galloway MD [Primary Care Provider] - (Date & Time 11/30/2024 2:40 PM Provider: Marcela Ramirez CRNP [facility] ) Diet: Heart Healthy Fluids: 1800ml (7 cups) Addtl Attending Provider Instructions: Follow-up with your primary care physician within a week time and likely you will need labs CBC/CMP/magnesium/phosphorus. Cardiology evaluated you while in hospital, continue your metoprolol at 50 mg twice a day, continue with Aldactone 12.5 mg Friday/Friday/Friday. Follow-up with cardiology in 1 to 2 weeks time upon discharge. For anxiety, you have been started on escitalopram, recommend that you follow-up with PCP for ongoing evaluation/management/dose adjustments. For your elevated liver enzymes at baseline, continue to follow-up with your PCP office for ongoing monitoring/evaluation. Take your medications as prescribed. Please make sure that you are able to get your medications today by calling your pharmacy before you leave the hospital so that your treatment continuity is not broken. Pending Studies at Discharge: No Stand-Alone Forms: My [employer], Smoking Cessation Medications and DC Order Prescriptions: New metoprolol succinate 50 mg Tablet Extended Release 24 Hr 50 mg PO BID Qty: 60 0RF escitalopram oxalate 10 mg Tablet 5 mg PO QAM Qty: 15 0RF hydroxyzine HCl 10 mg Tablet 10 mg PO QID PRN (Reason: anxiety) Qty: 30 0RF Continued spironolactone 25 mg tablet 12.5 mg PO MOWEFR levothyroxine 75 mcg tablet 75 mcg PO DAILY rosuvastatin 20 mg tablet 20 mg PO DAILY Jardiance 10 mg tablet 10 mg PO DAILY cholecalciferol (vitamin D3) [Vitamin D3] 50 mcg (2,000 unit) Tablet 50 mcg PO DAILY Changed Eliquis 5 mg tablet 2.5 mg PO BID Qty: 30 0RF Rx Instructions: Pt states she takes 2.5 mg bid at home. Held furosemide 40 mg tablet 40 mg PO Q2D Hold Instructions: Resume on 12/06/24. Hold until further pcp/cardio evaluation in 1 week time Discontinued metoprolol succinate 100 mg tablet extended release 24 hr 100 mg PO BID Discharge Orders: Discharge Order- CHF (Routine); Ordered 11/28/24 Ordered By: Merlyn Hamilton Admission Data Admit Date/Time: 11/27/24 14:11 Attending Provider: Merlyn Hamilton Admit Provider: Claude Figueroa Primary Care Provider: Rose Marie Galloway Other Providers: Claude Figueroa
[2024-11-28 11:25] VITALS: RESP 18
[2024-11-28 12:12] VITALS: BP 122/63; PULSE 69
[2024-11-28 13:48] VITALS: O2SAT 96
== END 2024-11-28 13:14 | disposition home or self-care (01) | DRG 291 ==
LOC: ED 18:03 → 2S 18:03

== ENCOUNTER 2025-01-19 12:58 | Inpatient (IN) ==
[2025-01-19 13:52] LABS: Basophils # (auto) 0.07 K/uL (0.00-0.20); Basophils % (auto) 1.1 %; Eosinophils # (auto) 0.02 K/uL (0.00-0.50); Eosinophils % (auto) 0.3 %; Hematocrit (blood only) 43.6 % (37.0-47.0); Hemoglobin 14.7 g/dl (12.0-16.0); Immature Granulocytes # (auto) 0.07 K/uL (0.01-0.20); Immature Granulocytes % (auto) 1.1 %; Lymphocytes # (auto) 1.96 K/uL (1.20-3.40); Lymphocytes % (auto) 30.2 %; Mean Corpuscular Hgb Conc 33.7 g/dL (32.0-36.0); Mean Platelet Volume 11.9 fL (9.4-12.4); Monocytes # (auto) 0.86 K/uL (0.11-0.59); Monocytes % (auto) 13.2 %; Neutrophils # (auto) 3.52 K/uL (1.40-6.50); Neutrophils % (auto) 54.1 %; Platelet Count 196 K/uL (130-400); RDW Coefficient of Variation 16.7 % (11.5-14.5); RDW Standard Deviation 54.2 fL (36.4-46.3)
[2025-01-19 14:01] LABS: INR 1.7 (0.9-1.1); Partial Thromboplastin Ratio 1.2; Partial Thromboplastin Time 33 Seconds (21-31); Prothrombin Time 17.7 Seconds (9.0-12.0)
[2025-01-19 14:14] LABS: Troponin I High Sensitivity 15.1 pg/ml (0-14)
[2025-01-19 14:16] LABS: Albumin Level 4.3 gm/dl (3.4-5.0); Anion Gap 10 (3-11); Bilirubin,Total 1.9 mg/dl (0.2-1.0); Calcium 10.2 mg/dl (8.6-10.3); Carbon Dioxide 25 mmol/L (21-32); Chloride 94 mmol/L (98-107); Potassium 3.3 mmol/L (3.5-5.1); Sodium 129 mmol/L (136-145)
[2025-01-19 14:22] LABS: Alanine Aminotransferase 19 U/L (7-52); Albumin Globulin Ratio 1.3 (0.9-2); Alkaline Phosphatase 71 U/L (34-104); Aspartate Aminotransferase 30 U/L (13-39); BUN Creatinine Ratio 17.5 (10-20); Blood Urea Nitrogen 27 mg/dl (6-23); Globulin 3.2 gm/dl (2.5-4.0); Glucose 81 mg/dl (70-99(Fasting)); Total Protein 7.5 gm/dl (6.0-8.3)
--- NOTE | 2025-01-19 14:44 | XRay Report ---
XR chest 1V not portable CLINICAL HISTORY: Chest pain, nonspecific COMPARISON STUDY: 11/24/2024 FINDINGS: Single view portable chest is unchanged. No acute process identified. Triple lead pacemaker /defibrillator is once again noted. Heart size is enlarged. There is mild pulmonary vascular congesti on. There is no pulmonary edema, pleural effusion, pneumothorax, or pneumonia identified. IMPRESSION: Stable exam; no acute process ACT 112: Negative or not required by law. Electronically signed by: Clarissa Enamorado M.D. 01/19/2025 2:42 PM
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
--- NOTE | 2025-01-19 16:41 | CT Scan Report ---
Clinical history: Shortness of breath Technique: Axial computed tomography images were obtained of the chest without intravenous contrast Findings: There are multifocal nodular and groundglass opacities in the lingula, most likely due to pneumonia. There are small calcified granulomas in the left upper lobe. There is a 5 mm noncalcified nodule in the right middle lobe. There is no pleural effusion or pneumothorax. There is no sign of pulmonary fibrosis or other diffuse interstitial process. No endobronchial lesion is seen There is no mediastinal, hilar, or axillary adenopathy. The thoracic aorta is of normal caliber. There is no pericardial effusion. There is a left chest wall pacemaker device The visualized upper abdomen appears unremarkable. No fracture is seen. No focal osseous lesion is evident Impression: 1. Lingular pneumonia 2. Small right middle lobe nodule, likely benign but indeterminate in nature. A follow-up chest CT could be obtained in 6 months ACT 112: Positive. There are findings on this exam that require communication between the performing entity and the patient following Patient Test Result Information Act ([place] ACT 112) guidelines. Electronically signed by Sudhir Torres 01-19-2025 4:40 PM
--- NOTE | 2025-01-19 16:52 | CT Scan Report ---
EXAMINATION: Abdomen and pelvis CT without CLINICAL HISTORY: Short of breath, chest pain PRIORS: None TECHNIQUE: Contiguous axial images were obtained through the abdomen and pelvis without the use of intravenous contrast. Sagittal and coronal reformations are supplied. FINDINGS: Mild airspace consolidation present in the left upper lobe at the edge of the ajebd-jr-[id number], lingula segment. Evaluation of solid organs is limited without the use of intravenous contrast. Allowing for this, the liver, pancreas, spleen, stomach, adrenals, aorta and IVC are morphologically unremarkable. No obstructing renal calculus or hydronephrosis. Gallbladder is contracted with possible wall thickening and sludge or pericholecystic fluid. No dilated loops of bowel. Left hip surgical hardware create significant beam hardening artifact diminishing image quality. No dilated loops of bowel. Moderate diverticulosis of the sigmoid colon. No adenopathy. Mild ascites present in the lower abdomen, tracking into the pelvis. Urinary bladder distends normally. Mild perivesicular inflammatory change. Uterus is present. In bone windows, no acute osseous abnormality. IMPRESSION: 1. Left upper lobe airspace opacity, at the edge of the [id number]-kq-hbtu, suspicious for pneumonia given the stated clinical history. 2. Contracted gallbladder with possible pericholecystic fluid and/or gallbladder wall thickening. If acute cholecystitis is of clinical concern, right upper quadrant ultrasound suggested. 3. Mild inflammatory change and perivesicular inflammatory change, suggesting acute cystitis in the proper clinical setting. Please correlate with urinalysis if appropriate. ACT 112: Positive. There are findings on this examination that require communication between the performing entity and the patient following Patient Test Result Information Act ([place] ACT 112) guidelines. Electronically signed by Maggie 01-19-2025 4:51 PM
[2025-01-19 17:02] LABS: Adenovirus PCR Not Detected (NotDetected); Bordetella parapertussis PCR Not Detected (NotDetected); Bordetella pertussis PCR Not Detected (NotDetected); Chlamydia pneumoniae PCR Not Detected (NotDetected); Coronavirus 229E PCR Not Detected (NotDetected); Coronavirus CoV-2 (COVID19)PCR Not Detected (NotDetected); Coronavirus HKU1 PCR Not Detected (NotDetected); Coronavirus NL63 PCR Not Detected (NotDetected); Coronavirus OC43PCR Not Detected (NotDetected); Human Metapneumovirus PCR Not Detected (NotDetected); Influenza A PCR Not Detected (NotDetected); Influenza B PCR Not Detected (NotDetected); Mycoplasma pneumoniae PCR Not Detected (NotDetected); Parainfluenza Virus 1 PCR Not Detected (NotDetected); Parainfluenza Virus 2 PCR Not Detected (NotDetected); Parainfluenza Virus 3 PCR DETECTED (NotDetected); Parainfluenza Virus 4 PCR Not Detected (NotDetected); Respiratory Syncytial VirusPCR Not Detected (NotDetected); Rhinovirus/Enterovirus PCR Not Detected (NotDetected)
[2025-01-19] MEDS: PIPERACILLIN/TAZOBACTAM 4.5 GM/100 ML BAG IV ONE (17:50)
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
--- NOTE | 2025-01-19 18:31 | Electrocardiogram Report ---
Test Reason : Blood Pressure : */* mmHG Vent. Rate : 61 BPM Atrial Rate : 70 BPM P-R Int : * ms QRS Dur : 140 ms QT Int : 484 ms P-R-T Axes : * 191 74 degrees QTcB Int : 487 ms Ventricular-paced rhythm Biventricular pacemaker detected Abnormal ECG When compared with ECG of 25-Nov-2024 13:40, No significant change was found Confirmed by Javad Lamb ([id number]) on 01/19/2025 6:31:10 PM Referred By: Confirmed By: Javad Lamb
[2025-01-19] MEDS: DOXYCYCLINE HYCLATE 100 MG in DEXTROSE 5% MINI-B 100 ML IV STA (19:23)
[2025-01-19] MEDS: POTASSIUM CHLORIDE CRTAB 20 MEQ TABCR PO ONE (19:23)
--- NOTE | 2025-01-19 19:39 | Ultrasound Report ---
Clinical history: Rule out cholecystitis Technique: Sonography was performed of the right upper quadrant of the abdomen Findings: There is no sign of cirrhosis or significant fatty infiltration. No definite liver mass is seen No definite gallstones are seen. The gallbladder wall is mildly thickened at 4 mm. This could be due to the decompressed state. No definite sonographic Prabhakar sign was detected. There is no intrahepatic or extrahepatic bile duct dilatation. The common bile duct measures 5 mm The right kidney measures 9.9 cm in length. There is no hydronephrosis. No definite renal calculus or mass is seen The visualized pancreas, aorta, and IVC appear unremarkable. No ascites is seen Impression: 1. No definite cholelithiasis 2. Mild gallbladder wall thickening that could be incomplete distention. If there is clinical suspicion for acalculus cholecystitis, hepatobiliary scintigraphy could be considered Electronically signed by Sudhir Torres 01-19-2025 7:38 PM
[2025-01-19 19:49] LABS: Appearance Urine Clear (Clear); Bacteria Urine Automated None Seen (None Seen); Bilirubin Urine Negative (Negative); Blood Urine 2+ (Negative); Cast Urine Automated 0-2 /lpf (0-2); Color Urine Yellow; Epithelial Cell Urine Auto 0-2 /hpf (0-2); Glucose Urine UA 3+ (Negative); Ketones Urine Negative (Negative); Leukocyte Esterase Urine Negative (Negative); Nitrite Urine Negative (Negative); Protein Urine 1+ (Negative); Urobilinogen Urine Negative (Negative); WBC Urine Automated 0-5 /hpf (0-5); pH Urine 5.5 (4.5-7.5)
[2025-01-19] MEDS ORDERED: ACETAMINOPHEN 325 MG TAB PO PRN (21:45)
[2025-01-19] MEDS ORDERED: oxyCODONE HCL IR 5 MG TAB (IMMEDIATE RELEASE) PO PRN (21:45)
--- OUTSIDE RECORDS SUMMARY | 2025-01-19 22:15 | External Medical Summary | Summary of Care ---
Author Name Unknown Organization [facility] Address [address] [place] [address] Phone [phone] Care Team Providers Care Human Resources Office Assistant Name Role Phone Rose Marie Galloway MD Primary Care Provide r Encounter Details Date Type Department Care Team (Late Contact Info) Description 01/07/2025 Orders Only PATIENT PORTAL DO NOT DELETE THIS DEPT USED BY [place] [id number] Allergies Active Allergy Reactions Criticality Noted Date Comments Docetaxel 02/14/2011 Chest pain, passed out , could not talk, saw silver round bubbles documented as of this encounter (statuses as of 01/07/2025) Medications OXYCODONE HCL 10 MG PO TABSIndications:pa in as needed Take by mouth every 8 hours as needed . Active Vitamin D3 50 MCG (1999 UT) Oral Capsule Take 1 Capsule by mouth in the morning. 30 Capsule 5 11/21/19 23 Active Levothyroxine Sodium 75 MCG Oral Tablet (Levoxyl)Indicatio ns:Hypothyroidism due to medication TAKE 1 TABLET BY MOUTH EVERY DAY AT LEAST 30 MIN BEFORE BREAKFAST OR OTHER MEDICATION 90 Tablet 3 05/06/20 24 Active Rosuvastatin Calcium 20 MG Oral Tablet (Crestor)Indicatio ns:Dyslipidemia, goal LDL below 100 TAKE 1 TABLET BY MOUTH EVERY DAY 90 Tablet 3 05/21/20 24 Active Spironolactone 25 MG Oral Tablet (Aldactone)Indicat ions:HTN, goal below 140/90,Heart failure, systolic, with acute decompensation (HCC) Take 0.5 Tablets by mouth once a day on Friday, Friday, and Friday only. 19 Tablet 3 08/13/20 24 Active Apixaban 5 MG Oral Tablet (Eliquis)Indicatio ns:Permanent atrial fibrillation (HCC) Take 1 Tablet by mouth in the morning and 1 Tablet before bedtime. 200 Tablet 3 12/01/2024 8:05 AM EST 11/24/19 25 Active Additional Information Patient taking differently: 2.5 mgOral BID (.AM/PM), Reported on 12/28/2024 Empagliflozin 10 MG Oral Tablet (Jardiance)Indicat ions:Systolic heart failure, chronic (HCC),Drug-induced cardiomyopathy (HCC),HTN, goal below 140/90 Take 1 Tablet by mouth in the morning. 100 Tablet 3 12/01/2024 8:05 AM EST 11/24/19 25 Active Sennosides-Docusat e Sodium 8.6-50 MG Oral Tablet (Senna S) Take 1 Tablet by mouth in the morning. 30 Tablet 1 12/08/19 25 Active Metoprolol Succinate ER 50 MG Oral Tablet Extended Release 24 Hour (toPROL XL)Indications:Per manent atrial fibrillation (HCC) Take 1 Tablet by mouth in the morning and 1 Tablet before bedtime. 180 Tablet 3 12/25/19 25 Active Escitalopram Oxalate 5 MG Oral Tablet (Lexapro) Take 1 Tablet by mouth in the morning. 90 Tablet 1 12/25/19 25 Active Furosemide 40 MG Oral Tablet (Lasix)Indications :Hypokalemia,Heart failure, systolic, with acute decompensation (HCC) Take 0.5 Tablets by mouth in the morning. 12/29/19 25 Active documented as of this encounter (statuses as of 01/07/2025) Active Problems Problem Noted Date Diagnosed Date Hypothyroidism 12/07/2024 Chronic idiopathic constipation 12/07/2024 NICM (nonischemic cardiomyopathy) 04/19/2024 ICD (implantable cardioverter-defibrillator) in place 04/19/2024 Chronic kidney disease, stage 3b 11/18/2022 Overview: Per CKD protocol Osteoporosis, postmenopausal 11/05/2022 Permanent atrial fibrillation 11/05/2022 Peripheral vascular disease 10/23/2021 Hx of melanoma of skin 12/04/2020 Overview (12/04/2020): 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, [place] II, 11/2020) Hypertensive heart and kidne y [...] 08/23/2014 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 residential current use of anticoagulant therapy 0 05/12/2006 Overview (07/07/2017): ICD-10 update of inactive term History of breast cancer 03/28/2006 Family history of other cardiovascular diseases 05/14/2005 Overview (12/28/2015): ICD-10 update of inactive term FAMILY HX-BREAST MALIG 05/14/2005 HTN, goal below 140/90 06/26/2001 Blindness of left eye documented as of this encounter (statuses as of 01/07/2025) Resolved Problems Problem Noted Date Diagnosed Date Resolved Date Stage 3 chronic kidney disease 12/07/2024 12/16/2024 Chronic systolic congestive heart failure 11/12/2023 11/14/2023 [...] upper abdomen) Secondary cardiomyopathy, unspecified 08/30/2014 08/08/2015 Overview (01/05/2025): ICD-10 Update of Inactive Term Atrial fibrillation 08/30/2014 04/11/20 17 Depression 01/07/2012 02/15/2016 UVEITIS 04/11/2010 03/12/2018 Inflammation of [...] as of this encounter (statuses as of 01/07/2025) Immunizations Name Administration Dates Next Due COVID-19 mRNA, LNP-s, No Pre serve, 2-Dose Series (Moderna) 02/12/2021,01/15/2021 Pneumococcal Conjugate Vacci ne, 20-valent ([id number]) 11/21/2022 Pneumococcal Polysaccharide PPV23 (Pneumovax) 08/12/2006 Seasonal [...] Answer Date Recorded PHQ Adult Total Score 1 12/28/2024 Hunger Vital Sign Answer Date Recorded Within [...] 10/20/2024 Transportation Needs Answer Date Record ed Do you have trouble getting a ride to medical visits or work? (Adult - for ages 18 years and over) Not on file 10/20/2024 Does your family have a hard [...] place to sleep at night? No 10/20/2024 Do you think you are at risk of becoming homeless? (Adult - for ages 18 years and over) Not on file 10/20/2024 Does your family worry about paying [...] Care Team (Late st Contact Info) Description 03/15/2025 1:20 PM EDT Office Visit Family Medicine [address] [place] [phone] Denise Garcia MD [address] [place] [address] [place] [phone] 04/22/2025 12:20 PM EDT Office Visit Dermatology Silvia Pederson [address] [place] [address] Cindi Vo PA-C [address] [place] [address] 06/21/2025 1:40 PM EDT Office Visit Family Medicine [address] [place] [phone] Rose Marie Galloway MD [address] [place] [address] [place] [address] 10/21/2025 1:00 PM EST Office Visit Optometry, [place] [address] [place] [address] Raudel Hernandez, OD [address] [place] [address] 11/10/2025 2:30 PM EST Office Visit Cardiology [address] [place] [address] Graeme Pang PA-C [address] [facility] [place] [address] 01/03/2026 1:30 PM EDT Nurse Only Ancillary [address] [place] [address] [place], Nurse Annual Wellness [address] [place] [address] [place] [address] Health Maintenance Due Date Last Done Comments Sigmoidoscopy 2002 Zoster Vaccines (1 of 2) 2007 Fecal Occult Blood Test 03/07/2011 03/07/20 10, 12/10/2001, 10/01/2000 Colonoscopy 12/28/2017 12/29/2007 *BISPHONATE OR OTHER ACCEPTABLE MEDICATION NEEDED FOR OSTEOPOROSIS (REFER TO SMARTSET #1146) 11/23/2022 Albumin/Creatinine Ratio 08/16/2023 08/16/2022 COVID-19 Vaccine ( season) 2024 02/12/2021, 01/15/2021 DXA Scan 11/04/2024 11/04/2022, 11/04/2022 Influenza Vaccine (FLU shot) (Season Ended) 2025 10/13/2008, 07/13/2007, 08/12/2006, Additional history exists GFR 06/30/2025 12/28/2024, 01/2025, 11/23/2024, Additional history exists Cologuard 08/21/2025 08/21/2022, 1105/2022, 08/13/2022, Additional history exists Colorectal Cancer Screening 08/21/2025 TSH 11/23/2025 11/23/2024, 05/07, 11/12/2023, Additional history exists CKD HGB USE SMARTSET 65340 12/07/202512/07, 12/07/2024, 11/23/2024, Additional history exists CKD PHOS USE SMARTSET 05081 12/07/2025 03/0 01/2025, 05/25/2024, 12/24/2022, Additional history exists Adult Wellness Visit 12/28/2025 12/28/2024, 11/27/2023, 11/26/2022 Depression Screening 12/28/2025 12/28/2024 Diabetes Screening 12/29/2027 12/28/2024, 0 12/07/2024, 11/23/2024, Additional history exists DTap/Tdap Vaccines (3 - Td or Tdap) 09/01/2028 09/01/2018, 03/14/2008 Lipid Panel 11/12/2028 11/12/2023, 12/05, 01/24/2022, Additional history exists Pap Smear Discontinued 03/26/2022, 03/06, 11/27/2015, Additional history exists Pneumococcal Vaccine: 50+ Years Completed 11/21/2022, 08/12/2006 VITAMIN D LEVEL ONCE IN A LIFETIME-USE SMARTSET# [id number] Completed 05/25/2024, 06/04/2023, 11/05/2022, Additional history exists [...] this encounter Medical Devices Implanted Type Area Generation Engineer Device Identifier Shelf Expiration Date Model / Serial / Lot Alloderm 6 X 16cm Implanted:Qty: 1 on 02/05/2007 at [place] [facility] [place] Right: Breast LIFE [employer] MADDIE [id number] / [id number] / [id number] Description:Alloderm 6 x 16 cm to right breast [id number] - [id number] Implanted:Qty: 1 on 02/05/2007 at [place] [facility] [place] Left: Breast [employer] MADDIE [id number] / [id number] / [id number] Description:ALLODERM TO left breast 6 x 16cm [place] Breast Implant Implanted:Qty: 1 on 02/05/2007 at [place] [facility] [place] Right: Breast MENTOR MADDIE 08/06/2010 350-1697 / [id number] / [id number] Description:700ml Breast Imp lant to Right Breast [place] Breast Implant Implanted:Qty: 1 on 02/05/2007 at [place] [facility] [place] Left: Breast MENTOR MADDIE 08/06/2010 350-1697 / [id number] / [id number] Description:[place] Breast Im plant to Left BreaST Graft Fascia Nevin 2x3 40613 - [id number] Implanted:Qty: 1 on 03/20/2010 at [facility] Right: Eye [employer] 06/06/2014 [id number] / / [id number] Breast Implant 350-1697 Saline - [id number] Implanted:Qty: 1 on 04/20/2011 at [place] [facility] [place] Right: Breast MENTOR MADDIE 04/04/2015 350-1697 / [id number] / [id number] Description:[place] smooth ro und moderate profile saline. Envelope Antibacteral Tyrx - [id number] Implanted:Qty: 1 on 05/14/2024 by Zulema Giordano IV, MD at [facility] [place] [employer] : CRM [id number] 01/30/2025 [id number] / / [id number] Defib [place] Mri Quad Pediatric Critical Care Nurse-D - [id number] Implanted:Qty: 1 on 05/14/2024 by Zulema Giordano IV, MD at [facility] [place] [employer] [id number] 07/03/2025 [id number] / [id number] / [id number] S Ring Mor[place] Type 14a Mr-1410 - [id number] Implanted:Qty: 1 on 08/17/2024 by Frank Zuñiga MD at [facility] Right: Eye MORCHER [id number] 04/04/2026 MR-1410 / [id number] / [id number] Lens 17.5 [id number] - [id number] Implanted:Qty: 1 on 08/17/2024 by Frank Zuñiga MD at [facility] Right: Eye ANNABELLE : SURGICAL [id number] 03/15/2029 [id number] / [id number] / [id number] documented as of this encounter Advance [...] and were consensually agreed upon. Care Teams Human Resources Office Assistant Relationship Specialty Start Date End Date Rose Marie Galloway MD [address] [place] [address] [place] [address] PCP - General Family Medicine 05/24/14 documented as of this encounter
--- OUTSIDE RECORDS SUMMARY | 2025-01-19 22:16 | External Medical Summary | Summary of Care ---
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 DTap/Tdap Vaccines (3 - Td or Tdap) 09/01/2028 Lipid Panel 11/12/2028 VITAMIN D LEVEL ONCE IN A LIFETIME-USE SMARTSET# [id number] Completed Pneumococcal Vaccine: 50+ Years Completed Hepatitis B Vaccine Aged Out MENINGOCOCCAL (MENACTRA/MENVEO) Aged Out HPV (Gardasil) Vaccine Aged Out Meningitis B Vaccine (Bexsero/Trumemba) Aged Out Pap Smear Discontinued Follow Up/ Referrals/Handouts: Depression screening - completed Functional assessment - doing well, [facility] 11/30 Falls Risk screening - discussed CMT Exercise screening - encouraged to keep active Nutrition assessment -. Education Provided Pain screening - no pain Incontinence screening - no concerns today Patient has been verbally educated on the need or importance of Cholesterol, Dexa Scan, GFR, Glucose, Potassium, COVID, Flu Vaccine, and Shingles Vaccine Pt has completed the covid vaccines: No, declined Shingrix and flu declined Routine general medical examination at a health care facility (Primary) Blindness of left eye Zihkysd-Tvcxg-Tsbpv disease Chronic kidney disease, stage 3b (HCC) Component Latest Ref Rng 12/07/2024 BUN 6 - 20 mg/dL 18 CREATININE 0.5 - 1.0 mg/dL 1.3 (H) EGFR >=60 mL/min 44 (L) Legend: (H) High (L) Low Drug-induced cardiomyopathy (HCC) Patient does follow up with cardiology Dyslipidemia, goal LDL below 100 - Med reconciliation completed and compliance discussed. - pt to continue present medications. Lab Results Component Value Date/Time LDL CHOLESTEROL (CALCULATED) - [facility] 11/12/2023 08:56 AM LDL CHOLESTEROL (CALCULATED) - [facility] 48 07/13/2020 08:17 AM LDL CHOLESTEROL (DIRECT MEASURE) - [facility] 67 01/24/2022 12:13 PM LDL CHOLESTEROL (DIRECT MEASURE) - [facility] NOT APPLICABLE 07/13/2020 08:17 AM LDL CHOLESTEROL (DIRECT MEASURE) - [facility] 70 09/11/2017 11:55 AM CAREN (generalized anxiety disorder) - Med reconciliation completed and compliance discussed. - pt to continue present medications. HTN, goal below 140/90 - Med reconciliation completed and compliance discussed. - pt to continue present medications. BP Readings from Last 4 Encounters: 12/28/24 98/66 12/28/24 87/55 12/07/24 104/75 11/23/24 92/54 Hx of melanoma of skin Patient does follow up with Dermatology Hypertensive heart and kidney disease with chronic systolic congestive heart failure and stage 3b chronic kidney disease (HCC) Hypothyroidism - Med reconciliation completed and compliance discussed. - pt to continue present medications. Patient is going back to see cardiology for follow up appointment, she was going to address BP and restricted fluids. See Graeme FAN today Follow Up: Return in 1 year (on 12/28/2025) for 12 month Subsequent Adult Wellness Visit. | For: 12 month Subsequent Adult Wellness Visit | Check-out note: 12 month Subsequent Adult Wellness Visit Would patient like to schedule next AWV visit? Yes Shannon Jasmine RN documented in this encounter Plan of Treatment Upcoming Encounters Date Type Department Care Team (Late st Contact Info) Description 03/15/2025 1:20 PM EDT Office Visit Family Medicine [address] [place] [phone] Denise Garcia MD [address] [place] [address] [place] [phone] 04/22/2025 12:20 PM EDT Office Visit Dermatology [facility] [place] [address] [place] [address] Cindi Vo PA-C [address] [place] [address] 06/21/2025 1:40 PM EDT Office Visit Family Medicine [address] [place] [phone] Rose Marie Galloway MD [address] [place] [address] [place] [address] 10/21/2025 1:00 PM EST Office Visit Optometry, [place] [address] [place], [place] [phone] Raudel Hernandez, OD [address] [place], [place] [id number] 11/10/2025 2:30 PM EST Office Visit Cardiology [address] [place] [address] Graeme Pang PA-C [address] [place] [address] 01/03/2026 1:30 PM EDT Nurse Only Ancillary [address] [place] [address] [place], Nurse Annual [address] [place] [address] Health Maintenance Due Date Last Done Comments [...] exists DXA Scan 11/04/2024 11/04/2022, 11/04/2022 GFR 06/09/2025 12/07/2024, 11/06, 09/20/2024, Additional history exists Cologuard 08/21/2025 08/21/2022, 05/2022, 08/13/2022, Additional history exists Colorectal Cancer Screening 08/21/2025 TSH 11/23/2025 11/23/2024, 05/07, 11/12/2023, Additional history exists CKD HGB USE SMARTSET 45328 12/07/202512/07, 12/07/2024, 11/23/2024, Additional history exists CKD PHOS USE SMARTSET 12200 12/07/2025 03/0 01/2025, 05/25/2024, 12/24/2022, Additional history exists Adult Wellness Visit 12/28/2025 12/28/2024, 11/27/2023, 11/26/2022 Depression Screening 12/28/2025 12/28/2024 Diabetes Screening 12/08/2027 12/07/2024, 0 11/23/2024, 09/20/2024, Additional history exists DTap/Tdap Vaccines (3 - Td or Tdap) 09/01/2028 09/01/2018, 03/14/2008 Lipid Panel 11/12/2028 11/12/2023, 12/05, 01/24/2022, Additional history exists Pap Smear Discontinued 03/26/2022, 03/06, 11/27/2015, Additional history exists Pneumococcal Vaccine: 50+ Years Completed 11/21/2022, 08/12/2006 VITAMIN D LEVEL ONCE IN A LIFETIME-USE SMARTSET# [id number] Completed 05/25/2024, 06/04/2023, 11/05/2022, Additional history exists [...] this encounter Medical Devices Implanted Type Area Gear Design Engineer Device Identifier Shelf Expiration Date Model / Serial / Lot Alloderm 6 X 16cm Implanted:Qty: 1 on 02/05/2007 at OR [facility] [place] Right: Breast [employer] MADDIE [id number] / [id number] / [id number] Description:Alloderm 6 x 16 cm to right breast [id number] - [id number] Implanted:Qty: 1 on 02/05/2007 at OR [facility] [place] Left: Breast [employer] M[employer]IE [id number] / [id number] / [id number] Description:ALLODERM TO left breast 6 x 16cm [place] Breast Implant Implanted:Qty: 1 on 02/05/2007 at OR [facility] [place] Right: Breast MENTOR MADDIE 08/06/2010 [id number] / [id number] / [id number] Description:700ml Breast Imp lant to Right Breast [place] Breast Implant Implanted:Qty: 1 on 02/05/2007 at OR [facility] [place] Left: Breast MENTOR MADDIE 08/06/2010 350-1697 / [id number] / [id number] Description:[place] Breast Im plant to Left BreaST Graft Fascia Nevin 2x3 07104 - [id number] Implanted:Qty: 1 on 03/20/2010 at OR [facility] Right: Eye [employer] 06/06/2014 [id number] / / [id number] Breast Implant 350-1697 Saline - [id number] Implanted:Qty: 1 on 04/20/2011 at OR [facility] [place] Right: Breast MENTOR MADDIE 04/04/2015 350-1697 / [id number] / [id number] Description:[place] smooth ro und moderate profile saline. Envelope Antibacteral Tyrx - [id number] Implanted:Qty: 1 on 05/14/2024 by Zulema Giordano IV, MD at [facility] [place] [employer] : CRM [id number] 01/30/2025 [id number] / / [id number] Defib [place] Mri Quad Can Solderer-D - [id number] Implanted:Qty: 1 on 05/14/2024 by Zulema Giordano IV, MD at [facility] [place] [employer] [id number] 07/03/2025 [id number] / [id number] / [id number] S Ring Morcher Type 14a Mr-1410 - [id number] Implanted:Qty: 1 on 08/17/2024 by Kia Zuñiga MD at OR [facility] Right: Eye MORCHER [id number] 04/04/2026 MR-1410 / [id number] / [id number] Lens 17.5 [id number] - [id number] Implanted:Qty: 1 on 08/17/2024 by Kia Zuñiga MD at OR [facility] Right: Eye ANNABELLE : SURGICAL [id number] 03/15/2029 [id number] / [id number] / [id number] documented as of this encounter Visit Diagnoses Diagnosis Routine general medical examination at a health care facility- Primary Blindness of left eye Profound impairment, one eye, Impairment level not further specified Ewndkzj-Rncmf-Xrfxo disease Peroneal muscular atrophy Chronic kidney disease, stage 3b (HCC) Drug-induced cardiomyopathy (HCC) Secondary cardiomyopathy, unspecified Dyslipidemia, goal LDL below 100 Other and unspecified hyperlipidemia CAREN (generalized anxiety disorder) Generalized anxiety disorder HTN, goal below 140/90 Unspecified essential hypertension Hx of melanoma of skin Personal history of malignant melanoma of skin Hypertensive heart and kidney disease with chronic systolic congestive heart failure and stage 3b chronic kidney disease (HCC) Hypothyroidism Unspecified hypothyroidism documented in this encounter Advance Directives * [...] and were consensually agreed upon. Care Teams Order Detailer Relationship Specialty Start Date End Date Rose Marie Galloway MD [address] [place] [address] [place] [address] PCP - General Family Medicine 05/24/14 documented as of this encounter
--- OUTSIDE RECORDS SUMMARY | 2025-01-19 22:16 | External Medical Summary | Summary of Care ---
Author Name Unknown Organization [facility] Address [address] [place] [address] Phone [phone] Care Team Providers Care Bill Sorter Name Role Phone Rose Marie Galloway MD Primary Care Provide r Reason for Visit * Reason Comments Follow Up 7 month follow up. [facility] 11/24-11/28/24. Still on a fluid restriction and would like to discuss. BP was low at visit with nurse today. Has difficult staying asleep at night. Denies chest pain, palpitations, dizziness, SOB and edema. Encounter Details Date Type Department Care Team (Latest Contact Info) Description 12/28/2024 12:30 PM EDT Office Visit Cardiology [address] [place] [address] Graeme Pang PA-C [address] [place] [address] Encounter for monitoring diuretic therapy*; Hospital discharge follow-up; Permanent atrial fibrillation (HCC); Systolic heart failure, chronic (HCC); Drug-induced cardiomyopathy (HCC); NICM (nonischemic cardiomyopathy) (HCC); ICD (implantable cardioverter-defibrilla tor) in place; Dyslipidemia, goal LDL below 100; Hypokalemia; Heart failure, systolic, with acute decompensation (HCC) Allergies Active Allergy Reactions Criticality Noted Date Comments Docetaxel 02/14/2011 Chest pain, passed out , could not talk, saw silver round bubbles documented as of this encounter (statuses as of 12/29/2024) Medications OXYCODONE HCL 10 MG PO TABSIndications:p [...] rt failure, systolic, with acute decompensation (HCC) Take 0.5 Tablets by mouth in the morning. 025 Active Furosemide 40 MG Oral Tablet (Lasix)Indication s:Hypokalemia,Hea rt failure, systolic, with acute decompensation (HCC) TAKE 1 TABLET EVERY OTHER DAY, OR DIRECTED 45 Tablet 1 025 2024 Discontinued hydrOXYzine 5 MG OR TABS Take 1 Tablet by mouth 4 times a day as needed for Anxiety. 2024 Discontinued documented as of this encounter (statuses as of 12/29/2024) Active Problems Problem Noted Date Diagnosed Date Hypothyroidism 12/07/2024 Chronic idiopathic constipation 12/07/2024 NICM (nonischemic cardiomyopathy) 04/19/2024 ICD (implantable cardioverter-defibrillator) in place 04/19/2024 Chronic kidney disease, stage 3b 11/18/2022 Overview: Per CKD protocol Osteoporosis, postmenopausal 11/05/2022 Permanent atrial fibrillation 11/05/2022 Peripheral vascular disease 10/23/2021 Hx of melanoma of skin 12/04/2020 Overview (12/04/2020): 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, Ashby II, 11/2020) Hypertensive heart and kidne y [...] cardiomyopathy 04/28/2012 CAREN (generalized anxiety disorder) 01/07/2012 Czmesga-Tllwk-Wjcgs disease 12/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 [facility] current use of anticoagulant therapy 0 05/12/2006 Overview (07/07/2017): ICD-10 update of inactive term History of breast cancer 03/28/2006 Family history of other cardiovascular diseases 05/14/2005 Overview (12/28/2015): ICD-10 update of inactive term FAMILY HX-BREAST MALIG 05/14/2005 HTN, goal below 140/90 06/26/2001 Blindness of left eye documented as of this encounter (statuses as of 12/29/2024) Resolved Problems Problem Noted Date Diagnosed Date [...] as of this encounter (statuses as of 12/29/2024) Immunizations Name Administration Dates Next Due COVID-19 mRNA, LNP-s, No Pre serve, 2-Dose Series (Moderna) 02/12/2021,01/15/2021 Pneumococcal Conjugate Vacci ne, 20-valent ([id number]) 11/21/2022 Pneumococcal Polysaccharide PPV23 (Pneumovax) 08/12/2006 Seasonal [...] Sign Reading Time Taken Comments Blood Pressure 98/66 12/28/2024 12:27 PM EDT Pulse 68 12/28/2024 12:27 PM EDT Temperature - - Respiratory Rate 16 12/28/2024 12:27 PM EDT Oxygen Saturation - - Inhaled Oxygen Concentration - - Weight 55.5 kg (122 lb 6.4 oz) 12/28/2024 12:27 PM EDT Height - - Body Mass Index 22.39 12/28/2024 10:58 AM EDT documented in this encounter Progress Notes * Graeme Pang PA-C - 12/28/2024 12:35 PM EDT History of Present Illness: Kayce Doherty is a very pleasant 69 year old female here today for routine general cardiology follow-up evaluation. Patient hospitalized at [facility] November 24, 2024 to November 28, 2024, admitted with acute decompensated heart failure. Prior to arrival diuretic regimen included furosemide 20 mg every other day and spironolactone 12.5 mg on Friday, Friday, and Friday. Patient received IV f urosemide in the ER with prompt improvement in presenting symptoms. Furosemide was held on discharge then restarted by Dr. Galloway at 40 mg every OTHER day. Metoprolol dosing decreased from 100 mg twice a day to 50 mg twice per day due to hypotension at [facility]. Eliquis dosing was decreased to 2.5 mg twice a day given weight and renal dysfunction which appears transient. Abnormal LFTs were attributedto passive congestion, asymptomatic. Hydroxyzine (as needed) and Lexapro were prescribed for anxiety. "When I first come out of the hospital I was so weak. I feel good now." Sometimes I can't sleep thehole night through. Notes trying hydroxyzine x 3 without improvement. "I'm not taking that. Can youtake it off my list so I don't have to pay for it." No chest pain. Breathing is good.No palpitations. No device alarms or discharges. No current cough. No chest congestion. Stable orthopnea. No PND. No peripheral edema. No lightheadedness, dizziness, near syncope, or syncope. No fevers or chills. No epistaxis, hemoptysis, melena, hematochezia, or hematuria. Past Medical/Surgical History: History of drug induced [...] Current Outpatient Medications Medication Sig Dispense Refill Vitamin D3 50 MCG (2000 UT) Oral [...] OTHER DAY, OR DIRECTED 45 Tablet 1 Apixaban 5 MG Oral Tablet (Eliquis) Take 1 Tablet by mouth in the morning and 1 Tablet before bedtime. (Patient taking differently: Take 0.5 Tablets by mouth in the morning and 0.5 Tablets before bedtime.) 200 Tablet 3 Empagliflozin 10 MG Oral Tablet (Jardiance) Take 1 Tablet by mouth in the morning. 100 Tablet 3 Sennosides-Docusate Sodium 8.6-50 MG Oral Tablet (Senna [...] mouth in the morning. 90 Tablet 1 OXYCODONE HCL 10 MG PO TABS Take by mouth every 8 hours as needed . No current facility-administered medications for this visit. OBJECTIVE/PHYSICAL EXAMINATION: BP 98/66 | Pulse 68 | Resp 16 | Wt 55.5 kg (122 lb 6.4 oz) | LMP 04/07/2006 | BMI 22.39 kg/m² | BSA 1.56 m² Blood pressure on my evaluation was 94/70 General: A&Ox3. NAD. HEENT: Normocephalic. Atraumatic. PER. [...] discs). Mild mitral regurgitation. Mild tricuspid regurgitation. October 14, 2024 TTE Interpretation Summary (as per Dr. Jamil): There is severe diffuse left ventricular hypokinesis. The qualitative LV ejection fraction is 30-34% (moderately reduced). The right atrium is severely enlarged. The left ventricular diastolic function is abnormal. The left ventricular diastolic fillling pressure is elevated. Mild mitral regurgitation is present. Mild tricuspid regurgitation is present. Mild pulmonary hypertension is present. The estimated pulmonary artery systolic pressure is 38 mm Hg. Compared to the report of the previous study dated 03/04, the left ventricular systolic function is relatively unchanged. Device interrogation on November 13, 2024 demonstrated appropriate function, 8.7 years remaining longevity. Mode: VVIR. Lower rate 60 bpm. Bi V paced 96 %. ASSESSMENT: Hospital discharge follow-up Compensated systolic congestive heart failure, drug-induced cardiomyopathy Status post biventricular pacemaker/defibrillator upgrade on 05/12/2018, generator change on 4by Dr. Giordano at [facility] Chronic hypotension, off of most guideline directed medical therapies due to poor tolerance Chronic atrial fibrillation with a controlled ventricular response Chronic anticoagulation, Eliquis Complete heart block Hypertension. Hyperlipidemia. Options of management discussed. RECOMMENDATIONS/PLAN: Follow-up basic metabolic panel today. If creatinine is consistently less than 1.5 mg/dL would increase Eliquis dosing back to 5 mg twice per day Changed furosemide dosing from 40 mg every other day to 20 mg daily If symptomatic with hypotension would reconsider reduction in metoprolol dosing, possibly adding low-dose digoxin if needed for additional heart rate control Cardiology follow-up in 3-4 months or as needed. ER with emergencies. Graeme Pang PA-C Department of Cardiology I spent a total of 40-54 minutes (exact time 40 mins) on the date of service in preparation, delivery, and documentation of the care provided to Kayce Doherty excluding any time spent in the performance of separately billed services. This visit involved medical care services related to at least one serious condition or complex condition requiring ongoing care. This chart was completed in part utilizing [employer] Speech Voice Recognition Software. Grammatical errors, random word insertions, prounoun errors, and incomplete sentences are an occasional consequence of this system due to software limitations, ambient noise, and hardware issues. Any formal questions or concerns about the content, text, or information contained within the body of this dictation should be directly addressed to the provider for clarification. documented in this encounter Nursing Notes * Marcelino Hines LPN - 12/28/2024 12:26 PM EDT Patient identified by full name and date of Chief Complaint Patient presents with Follow Up 7 month follow up. [facility] 11/24-11/28/24. Still on a fluid restriction and would like to discuss. BP was low at visit with nurse today. Has difficult staying asleep at night. Denies chest pain, palpitations, dizziness, SOB and edema. Examination Room: 4 Name: Kayce Doherty Date of : (1955). Reason for Visit: follow up Interim Hospitalization(s): [facility] 11/24-11/28/24 Problems/Concerns: See chief complaint Chest Pain/SOB: See chief complaint [facility] Discussed: Yes My [...] Description 03/15/2025 1:20 PM EDT Office Visit [address] [phone] Denise Garcia MD [address] [place] [address] [place] [phone] 04/22/2025 12:20 PM EDT Office Visit Dermatology [facility] [address] [facility] [place] [address] Cindi Vo PA-C [address] [facility] [place] [address] 06/21/2025 1:40 PM EDT Office Visit Family [address] [phone] Rose Marie Galloway MD [address] [place] [address] [place] [address] 10/21/2025 1:00 PM EST Office Visit Optometry, [address] [address] Raudel Hernandez OD [address] [place] [address] 11/10/2025 2:30 PM EST Office Visit Cardiology [address] [place] [address] Graeme Pang PA-C [address] [place] [address] 01/03/2026 1:30 PM EDT Nurse Only Ancillary [address] [place] [address] [place], Nurse Annual Wellness [address] [place] [address] [place] [address] Health Maintenance Due Date Last Done Comments [...] DXA Scan 11/04/2024 11/04/2022, 11/04/2022 GFR 06/09/2025 12/28/2024, 01/2025, 11/23/2024, Additional history exists Cologuard 08/21/2025 08/21/2022, 05/2022, 08/13/2022, Additional history exists Colorectal Cancer Screening 08/21/2025 TSH 11/23/2025 11/23/2024, 08/, 11/12/2023, Additional history exists CKD HGB USE SMARTSET 21058 12/07/202512/07, 12/07/2024, 11/23/2024, Additional history exists CKD PHOS USE SMARTSET 61537 12/07/2025 03/0 01/2025, 05/25/2024, 12/24/2022, Additional history exists Adult Wellness Visit 12/28/2025 12/28/2024, 11/27/2023, 11/26/2022 Depression Screening 12/28/2025 12/28/2024 Diabetes Screening 12/08/2027 12/28/2024, 0 12/07/2024, 11/23/2024, Additional history exists DTap/Tdap Vaccines (3 - Td or Tdap) 09/01/2028 09/01/2018, 03/14/2008 Lipid Panel 11/12/2028 11/12/2023, 12/05, 01/24/2022, Additional history exists Pap Smear Discontinued 03/26/2022, 03/06, 11/27/2015, Additional history exists Pneumococcal Vaccine: 50+ Years Completed 11/21/2022, 08/12/2006 VITAMIN D LEVEL ONCE IN A LIFETIME-USE SMARTSET# [id number] Completed 05/25/2024, 06/04/2023, 11/05/2022, Additional history exists [...] this encounter Medical Devices Implanted Type Area Starcher And Tenter Range Feeder Device Identifier Shelf Expiration Date Model / Serial / Lot Alloderm 6 X 16cm Implanted:Qty: 1 on 02/05/2007 at OR [facility] Right: Breast LIFE CELL MADDIE [id number] / [id number] / [id number] Description:Alloderm 6 x 16 cm to right breast [id number] - [id number] Implanted:Qty: 1 on 02/05/2007 at OR [facility] Left: Breast LIFE CELL MADDIE [id number] / [id number] / [id number] Description:ALLODERM TO left breast 6 x 16cm Bagdad Breast Implant Implanted:Qty: 1 on 02/05/2007 at OR [facility] Right: Breast MENTOR MADDIE 08/06/2010 350-1697 / [id number] / [id number] Description:700ml Breast Imp lant to Right Breast Bagdad Breast Implant Implanted:Qty: 1 on 02/05/2007 at OR [facility] Left: Breast MENTOR MADDIE 08/06/2010 350-1697 / [id number] / [id number] Description:Bagdad Breast Im plant to Left BreaST Graft Fascia Nevin 2x3 [id number] - [id number] Implanted:Qty: 1 on 03/20/2010 at OR [facility] Right: Eye [employer] 06/06/2014 [id number] / / [id number] Breast Implant 350-1697 Saline - [id number] Implanted:Qty: 1 on 04/20/2011 at OR [facility] Right: Breast MENTOR MADDIE 04/04/2015 350-1697 / [id number] / [id number] Description:Bagdad smooth ro und moderate profile saline. Envelope Antibacteral Tyrx - [id number] Implanted:Qty: 1 on 05/14/2024 by Zulema Giordano IV, MD at CARDIAC LABS [facility] [employer] : CRM [id number] 01/30/2025 [id number] / / [id number] Defib [place] Mri Quad Stripping Shovel Operator-D - [id number] Implanted:Qty: 1 on 05/14/2024 by Zulema Giordano IV, MD at [facility] [employer] [id number] 07/03/2025 [id number] / [id number] / [id number] S Ring Morcher Type 14a Mr-1410 - [id number] Implanted:Qty: 1 on 08/17/2024 by Frank Zuñiga MD at OR [facility] Right: Eye MORCHER [id number] 04/04/2026 MR-[id number] / [id number] / [id number] Lens 17.5 [id number] - [id number] Implanted:Qty: 1 on 08/17/2024 by Frank Zuñiga MD at OR [facility] Right: Eye ANNABELLE : SURGICAL [id number] 03/15/2029 [id number] / [id number] / [id number] documented as of this encounter Results * (ABNORMAL) BASIC METABOLIC PANEL (12/28/2024 1:11 PM EDT) BUN 16 6 - 20 mg/dL 12/29/2024 1:09 AM EDT LABORATORY C CREATININE 1.3(H) 0.5 - 1.0 mg/dL 12/29/2024 1:09 AM EDT LABORATORY C EGFR 46(L) >=60 mL/min 12/29/2024 1:09 AM EDT LABORATORY [facility] Comment:eGFR is calculated b ased on the CKD-EPI 2020 equation. SODIUM 139 135 - 146 mmol/L 12/29/2024 1:09 AM EDT LABORATORY C POTASSIUM 3.6 3.5 - 5.1 mmol/L 12/29/2024 1:09 AM EDT LABORATORY C CHLORIDE 99 98 - 107 mmol/L 12/29/2024 1:09 AM EDT LABORATORY C CO2 27 22 - 32 mmol/L 12/29/2024 1:09 AM EDT LABORATORY [facility] ANION GAP 13 7 - 15 mmol/L 12/29/2024 1:09 AM EDT LABORATORY [facility] GLUCOSE 100 70 - 120 mg/dL 12/29/2024 1:09 AM EDT LABORATORY [facility] CALCIUM 10.3(H) 8.4 - 10.2 mg/dL 12/29/2024 1:09 AM EDT LABORATORY [facility] Blood Venous blood specimen / Unknown Venipuncture / Unknown 12/28/2024 1:11 PM EDT 12/28/2024 1:11 PM EDT Graeme Pang PA-C LAB BLOOD ORDERABLES Final Result Performing Organization Address City/State/[facility] de Phone Number LABORATORY [facility] [address] [place] [address] documented in this encounter Visit Diagnoses Diagnosis Encounter for monitoring diuretic therapy- Primary Encounter for therapeutic drug monitoring Hospital discharge follow-up Other follow-up examination Permanent atrial fibrillation (HCC) Atrial fibrillation Systolic heart failure, chronic (HCC) Chronic systolic heart failure Drug-induced cardiomyopathy (HCC) Secondary cardiomyopathy, unspecified NICM (nonischemic cardiomyopathy) (HCC) Other primary cardiomyopathies ICD (implantable cardioverter-defibrillator) in place Dyslipidemia, goal LDL below 100 Other and unspecified hyperlipidemia Hypokalemia Hypopotassemia Heart failure, systolic, with acute decompensation (HCC) Acute on chronic systolic heart failure documented in this encounter Advance Directives * [...] and were consensually agreed upon. Care Teams Bill Sorter Relationship Specialty Start Date End Date Rose Marie Galloway MD [address] [place] [address] [place] [address] PCP - General Family Medicine 05/24/14 documented as of this encounter
--- OUTSIDE RECORDS SUMMARY | 2025-01-19 22:16 | External Medical Summary | Summary of Care ---
Author Name Unknown Organization [facility] Address [address] [place] [address] Phone [phone] Care Team Providers Care Coffee Brewer Name Role Phone Rose Marie Galloway MD Primary Care Provide r Reason for Visit * Reason Onset Date Comments Test Results 12/29/2024 Encounter Details Date Type Department Care Team (Late st Contact Info) Description 12/29/2024 Telephone Cardiology, [facility] [address] [place] [address] Graeme Pang PA-C [address] [facility] [place] [address] Test Results Allergies Active Allergy Reactions Criticality Noted Date Comments Docetaxel 02/14/2011 Chest pain, passed out , could not talk, saw silver round bubbles documented as of this encounter (statuses as of 12/30/2024) Medications OXYCODONE HCL 10 MG PO TABSIndications:pa [...] as of this encounter (statuses as of 12/30/2024) Active Problems Problem Noted Date Diagnosed Date Hypothyroidism 12/07/2024 Chronic idiopathic constipation 12/07/2024 NICM (nonischemic cardiomyopathy) 04/19/2024 ICD (implantable cardioverter-defibrillator) in place 04/19/2024 Chronic kidney disease, stage 3b 11/18/2022 Overview: Per CKD protocol Osteoporosis, postmenopausal 11/05/2022 Permanent atrial fibrillation 11/05/2022 Peripheral vascular disease 10/23/2021 Hx of melanoma of skin 12/04/2020 Overview (12/04/2020): 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, [place] II, 11/2020) Hypertensive heart and kidne y [...] cardiomyopathy 04/28/2012 CAREN (generalized anxiety disorder) 01/07/2012 Uhefsmo-Barbq-Sfesk disease 12/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 backend developer current use of anticoagulant therapy 0 05/12/2006 Overview (07/07/2017): ICD-10 update of inactive term History of breast cancer 03/28/2006 Family history of other cardiovascular diseases 05/14/2005 Overview (12/28/2015): ICD-10 update of inactive term FAMILY HX-BREAST MALIG 05/14/2005 HTN, goal below 140/90 06/26/2001 Blindness of left eye documented as of this encounter (statuses as of 12/30/2024) Resolved Problems Problem Noted Date Diagnosed Date [...] as of this encounter (statuses as of 12/30/2024) Immunizations Name Administration Dates Next Due COVID-19 mRNA, LNP-s, No Pre serve, 2-Dose Series (Moderna) 02/12/2021,01/15/2021 Pneumococcal Conjugate Vacci ne, 20-valent ([id number]) 11/21/2022 Pneumococcal Polysaccharide PPV23 (Pneumovax) 08/12/2006 Seasonal [...] encounter Miscellaneous Notes * Telephone Encounter - Lizzy Parra CMA - 12/30/2024 1:39 PM EDT Spoke with patient and reviewed instructions. Patient verbalized understanding, denied further questions. * Telephone Encounter - Yenny Owens OSA - 12/30/2024 1:36 PM EDT Person calling: Pt Relationship to patient: self Phone/Fax to return call: [phone] Reason for call(brief): Test Results Pharmacy: Provider Name: Graeme Pang PA-C Detailed message to office: Pt calling in for results. Transferred to [place]. * Telephone Encounter - Idalmis Vega CMA - 12/29/2024 8:48 AM EDT Called and reached patient's contact Carine. She verbalized awareness and understanding regardingEliquis dose and repeat BMP. Orders placed. * Telephone Encounter - Idalmis Vega CMA - 12/29/2024 8:40 AM EDT ----- Message from Graeme Pang sent at 12/29/2024 7:55 AM EDT ----- Recheck a basic metabolic panel in 3 weeks Increase apixaban (Eliquis) back to 5 mg twice per day documented in this encounter Plan of Treatment Upcoming Encounters Date Type Department Care Team (Late st Contact Info) Description 03/15/2025 1:20 PM EDT Office Visit Family Medicine [address] [place] [address] Denise Garcia MD [address] [place] [address] [place] [phone] 04/22/2025 12:20 PM EDT Office Visit Dermatology [place] [address] [facility] [place] [address] Cindi Vo PA-C [address] [place] [address] 06/21/2025 1:40 PM EDT Office Visit Family Medicine [address] [place] [phone] Rose Marie Galloway MD [address] [place] [address] [place] [address] 10/21/2025 1:00 PM EST Office Visit Optometry, [place] 16 [place] [address] Raudel Hernandez, OD 16 [place] [address] 11/10/2025 2:30 PM EST Office Visit Cardiology [address] [place] [address] Graeme Pang PA-C [address] [place] [address] 01/03/2026 1:30 PM EDT Nurse Only Ancillary [address] [place] [address] [place], Nurse [address] [place] [address] Scheduled Orders Name Type Priority Associated Diagnoses Orde r Schedule BASIC METABOLIC PANEL Lab Routine Encounter for monitoring diuretic therapy Expected: 01/19/2025 (Approximate), Expires: 12/29/2025 Health Maintenance Due Date Last Done Comments [...] exists DXA Scan 11/04/2024 11/04/2022, 11/04/2022 GFR 06/30/2025 12/28/2024, 03/0 01/2025, 11/23/2024, Additional history exists Cologuard 08/21/2025 08/21/2022, 1105/2022, 08/13/2022, Additional history exists Colorectal Cancer Screening 08/21/2025 TSH 11/23/2025 11/23/2024, 05/07, 11/12/2023, Additional history exists CKD HGB USE SMARTSET 65881 12/07/202512/07, 12/07/2024, 11/23/2024, Additional history exists CKD PHOS USE SMARTSET 57979 12/07/2025 03/0 01/2025, 05/25/2024, 12/24/2022, Additional history [...] D LEVEL ONCE IN A LIFETIME-USE SMARTSET# 05047 Completed 05/25/2024, 06/04/2023, 11/05/2022, Additional history exists [...] this encounter Medical Devices Implanted Type Area Wood Barrel Reconditioner Device Identifier Shelf Expiration Date Model / Serial / Lot Alloderm 6 X 16cm [place]ed:Q[place] 1 [place] [facility] [place] LIFE CELL MADDIE [id number] / [id number] / [id number] Description:Alloderm 6 x 16 cm to right breast [id number] - [id number] Implanted:Qty: 1 on 02[place]05/[place] [facility] [place] Breast LIFE CELL MADDIE [id number] / [id number] / [id number] Description:ALLODERM TO left breast 6 x 16cm [place]ide Breast Implant Implanted:Qty: 1 on 02/05/[place] [facility] [place]: Breast MENTOR MADDIE 08/06/2010 350-1697 / [id number] / [id number] Description:700ml Breast Imp lant to Right Breast Riverside Breast Implant Implanted:Qty: 1 on 02/05/2007 [place] [facility] [place]: Breast MENTOR MADDIE 08/06/2010 350-1697 / [id number] / [id number] Description:Riverside Breast Im plant to Left BreaST Graft Fascia Nevin 2x3 11161 - [id number] Implanted:Qty: 1 on 03/20/2010 at [facility] Right: Eye IOP INC 06/06/2014 [id number] / / [id number] Breast Implant 350-1697 Saline - [id number] Implanted:Qty: 1 on 04/20/2011 [place] [facility] [place]: Breast MENTOR MADDIE 04/04/2015 350-1697 / [id number] / [id number] Description:Riverside smooth ro und moderate profile saline. Envelope Antibacteral Tyrx - [id number] Implanted:Qty: 1 on 05/14/2024 by Zulema Giordano IV, [place] at [facility] [employer] : CRM [id number] 01/30/2025 [id number] / / [id number] Defib [place] Mri Quad Clothing Supervisor-D - [id number] Implanted:Qty: 1 on 05/14/2024 by Zulema Giordano IV, MD at [facility] [place] [employer] [id number] 07/03/2025 [id number] / [id number] / [id number] S Ring Any Type 14a Mr-1410 - [id number] Implanted:Qty: 1 on 08/17/2024 by Frank Zuñiga MD at OR [facility] Right: Eye LUISCHER [id number] 04/04/2026 MR-1410 / [id number] / [id number] Lens 17.5 [id number] - [id number] Implanted:Qty: 1 on 08/17/2024 by Frank Zuñiga MD at OR [facility] Right: Eye ANNABELLE : SURGICAL [id number] 03/15/2029 [id number] / [id number] / [id number] documented as of this encounter Visit Diagnoses Diagnosis Encounter for monitoring diuretic therapy- Primary Encounter for therapeutic drug monitoring documented in this encounter Advance Directives * [...] and were consensually agreed upon. Care Teams Coffee Brewer Relationship Specialty Start Date End Date Rose Marie Galloway MD [address] [place] [address] [place] [phone] PCP - General Family Medicine 05/24/14 documented as of this encounter
--- OUTSIDE RECORDS SUMMARY | 2025-01-19 22:16 | External Medical Summary | Summary of Care ---
Author Name Unknown Organization [facility] Address [address] [place] [address] Phone [phone] Care Team Providers Care Assembler Utility Buildings Name Role Phone Rose Marie Galloway MD Primary Care Provide r Reason for Visit * Reason Onset Date Comments Advice 12/24/2024 Encounter Details Date Type Department Care Team ([facility] st Contact Info) Description 12/24/2024 Telephone Family Medicine [address] [phone] Rose Marie Galloway MD [address] [place] [address] [place] [address] Advice Allergies Active Allergy Reactions Criticality Noted Date Comments Docetaxel 02/14/2011 Chest pain, passed out , could not talk, saw silver round bubbles documented as of this encounter (statuses as of 12/24/2024) Medications OXYCODONE HCL 10 MG PO TABSIndications:p [...] DAY, OR DIRECTED 45 Tablet 1 025 Active Apixaban 5 MG Oral Tablet (Eliquis)Indicati ons:Permanent atrial fibrillation (HCC) Take 1 Tablet by mouth in the morning and 1 Tablet before bedtime. 200 Tablet 3 5 8:05 AM EST 025 Active Additional Information Patient taking differently: 2.5 mgOral BID (.AM/PM), Reported on 12/07/2024 Empagliflozin 10 MG Oral Tablet (Jardiance)Indica tions:Systolic heart failure, chronic (HCC),Drug-induce d cardiomyopathy (HCC),HTN, goal below 140/90 Take 1 Tablet by mouth in the morning. 100 Tablet 3 5 8:05 AM EST 025 Active hydrOXYzine 5 MG OR TABS Take 1 Tablet by mouth 4 times a day as needed for Anxiety. Active Sennosides-Docusa te Sodium 8.6-50 MG Oral [...] the morning. 90 Tablet 1 025 Active Escitalopram Oxalate 10 MG Oral Tablet (Lexapro) Take 0.5 Tablets by mouth in the morning. 025 2024 Discontinued documented as of this encounter (statuses as of 12/24/2024) Active Problems Problem Noted Date Diagnosed Date Hypothyroidism 12/07/2024 Chronic idiopathic constipation 12/07/2024 NICM (nonischemic cardiomyopathy) 04/19/2024 ICD (implantable cardioverter-defibrillator) in place 04/19/2024 Chronic kidney disease, stage 3b 11/18/2022 Overview: Per CKD protocol Osteoporosis, postmenopausal 11/05/2022 Permanent atrial fibrillation 11/05/2022 Peripheral vascular disease 10/23/2021 Hx of melanoma of skin 12/04/2020 Overview (12/04/2020): 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, [place] II, 11/2020) Hypertensive heart and kidne y [...] cardiomyopathy 04/28/2012 CAREN (generalized anxiety disorder) 01/07/2012 Aweenwb-Qjnqa-Duvhx disease 12/24/2010 Systolic heart failure, chronic 08/03/2009 [...] as of this encounter (statuses as of 12/24/2024) Resolved Problems Problem Noted Date Diagnosed Date [...] as of this encounter (statuses as of 12/24/2024) Immunizations Name Administration Dates Next Due COVID-19 mRNA, LNP-s, No Pre serve, 2-Dose Series (Moderna) 02/12/2021,01/15/2021 Pneumococcal Conjugate Vacci ne, 20-valent ([id number]) 11/21/2022 Pneumococcal Polysaccharide PPV23 (Pneumovax) 08/12/2006 Seasonal [...] No 10/20/2024 Does the household have a [facility] source of income? (Household - for ages [...] encounter Miscellaneous Notes * Telephone Encounter - Denise Garcia MD - 12/24/2024 3:41 PM EDT Yes, should continue. Sent 5 mg tabs instead * Telephone Encounter - Patsy Cain OSA - 12/24/2024 12:00 PM EDT Patient does not know if she should continue taking escitalopram 0.5mg as prescribed by [facility]. If so, she would like a 90 day supply sent to her pharmacy and would like it written for 5mg instead of 10mg so she doesn't have to spit them. Pharmacy [facility] documented in this encounter Plan of Treatment Upcoming Encounters Date Type Department Care Team (Late st Contact Info) Description 12/28/2024 11:00 AM EDT Nurse Only Ancillary [address] [place] [address] [place], Nurse [address] [place] [address] 12/28/2024 12:30 PM EDT Office Visit Cardiology [address] [place] [address] Graeme Pang PA-C [address] [place] [address] 03/15/2025 1:20 PM EDT Office Visit Family Medicine [address] [place] [phone] Denise Garcia MD [address] [place] [address] [place] [phone] 04/22/2025 12:20 PM EDT Office Visit Dermatology [facility] [place] [address] [facility] [place] [address] Cindi Vo PA-C [address] [place] [address] 06/21/2025 1:40 PM EDT Office Visit Family Medicine [address] [place] [address] Rose Marie Galloway MD [address] [place] [address] [place] [address] 10/21/2025 1:00 PM EST Office Visit Optometry, [place] 16 [place] [address] Raudel Hernandez, MEHNAZ 16 [place] [address] Health Maintenance Due Date Last Done Comments [...] Wellness Visit 11/27/2024 11/27/2023, 11/26/19 23 GFR 06/09/2025 12/07/2024, 11/06, 09/20/2024, Additional history exists Cologuard 08/21/2025 08/21/2022, 05/2022, 08/13/2022, Additional history exists Colorectal Cancer Screening 08/21/2025 Depression Screening 10/20/2025 10/20/2024 TSH 11/23/2025 11/23/2024, 08/, 11/12/2023, Additional history exists CKD HGB USE SMARTSET 02279 12/07/202512/07, 12/07/2024, 11/23/2024, Additional history exists CKD PHOS USE SMARTSET 79857 12/07/2025 03/0 01/2025, 05/25/2024, 12/24/2022, Additional history exists Diabetes Screening 12/08/2027 12/07/2024, 0 11/23/2024, 09/20/2024, Additional history exists DTap/Tdap Vaccines (3 - Td or Tdap) 09/01/2028 09/01/2018, 03/14/2008 Lipid Panel 11/12/2028 11/12/2023, 12/05, 01/24/2022, Additional history exists Pap Smear Discontinued 03/26/2022, 03/06, 11/27/2015, Additional history exists Pneumococcal Vaccine: 50+ Years Completed 11/21/2022, 08/12/2006 VITAMIN D LEVEL ONCE IN A LIFETIME-USE SMARTSET# 99664 Completed 05/25/2024, 06/04/2023, 11/05/2022, Additional history exists [...] this encounter Medical Devices Implanted Type Area Senior Loss Control Specialist Device Identifier Shelf Expiration Date Model / Serial / Lot Alloderm 6 X 16cm Implanted:Qty: 1 on 02/05/2007 at [place] [facility] [place]: Breast LIFE CELL MADDIE [id number] / [id number] / [id number] Description:Alloderm 6 x 16 cm to right breast [id number] - [id number] Implanted:Qty: 1 on 02/05/2007 at [place] [facility] [place] Left: Breast LIFE CELL MADDIE [id number] / [id number] / [id number] Description:ALLODERM TO left breast 6 x 16cm [place] Breast Implant Implanted:Qty: 1 on 02/05/2007 at [place] [facility] [place] Right: Breast MENTOR MADDIE 08/06/2010 350-1697 / [id number] / [id number] Description:700ml Breast Imp lant to Right Breast [place]le Breast Implant Implanted:Qty: 1 on 02/05/2007 at [place] [facility] [place] Left: Breast MENTOR MADDIE 08/06/2010 350-1697 / [id number] / [id number] Description:K[place]le Breast Im plant to Left BreaST Graft Fascia Nevin 2x3 38995 - [id number] Implanted:Qty: 1 on 03/20/2010 at OR [facility] Right: Eye IOP INC 06/06/2014 03759 / / [id number] Breast Implant 350-1697 Saline - [id number] Implanted:Qty: 1 on 04/20/2011 at OR [facility] [place] Right: Breast MENTOR MADDIE 04/04/2015 350-1697 / [id number] / [id number] Description:[place] smooth ro und moderate profile saline. Envelope Antibacteral Tyrx - [id number] Implanted:Qty: 1 on 05/14/2024 by Zulema Giordano IV, MD at [facility] [place] [employer] : CRM [id number] 01/30/2025 CMRM6 133 / / [id number] Defib [place] Mri Quad Pairer Odds-D - [id number] Implanted:Qty: 1 on 05/14/2024 by Zulema Giordano IV, MD at [facility] [place] [employer] [id number] 07/03/2025 [id number] / [id number] / [id number] Ring Morcher Type 14a Mr-1410 - [id number] Implanted:Qty: 1 on 08/17/2024 by Frank Zuñiga MD at OR [facility] Right: Eye MORCHER [id number] 04/04/2026 MR-1410 / [id number] / [id number] Lens 17.5 [id number] - [id number] Implanted:Qty: 1 on 08/17/2024 by Frank Zuñiga MD at OR [facility] Right: Eye ANNABELLE : SURGICAL [id number] 03/15/2029 [id number] / [id number] / [id number] documented as of this encounter Advance [...] and were consensually agreed upon. Care Teams Assembler Utility Buildings Relationship Specialty Start Date End Date Rose Marie Galloway MD [address] [place] [address] [place] [address] PCP - General Family Medicine 05/24/14 documented as of this encounter
--- OUTSIDE RECORDS SUMMARY | 2025-01-19 22:16 | External Medical Summary ---
Author Name Unknown Address Unknown Organization K01:[facility] [place] [address] [facility] [address] Laboratory Report Ordering Provider Test Date Status JEFFREY NUNES 12/28/2024 13:11:52 Final Observation Date Value Abnormality Reference (Units ) Status BUN 12/28/2024 13:11:52 16 6-20 (mg/dL) Final Creatinine 12/28/2024 13:11:52 1.3 Above high normal 0.5-1.0 (mg/dL) Final Glomerular filtration rate/1.73 sq M.predicted [Volume Rate/Area] in Serum, Plasma or Blood by Creatinine-based formula (CKD-EPI) 12/28/2024 13:11:52 46 Below low normal >=60 (mL/min) Final eGFR is calculated based on the CKD-EPI 2020 equation. Sodium 12/28/2024 13:11:52 139 135-146 (m mol/L) Final Potassium 12/28/2024 13:11:52 3.6 3.5-5.1 (m mol/L) Final Cl 12/28/2024 13:11:52 99 98-107 (mm ol/L) Final CO2 12/28/2024 13:11:52 27 22-32 (mmo l/L) Final Anion gap 12/28/2024 13:11:52 13 7-15 (mmol /L) Final Glucose 12/28/2024 13:11:52 100 70-120 (mg /dL) Final Calcium 12/28/2024 13:11:52 10.3 Above high normal 8. 4-10.2 (mg/dL) Final Performing Location [facility] [place] [address] [facility] [address]
--- OUTSIDE RECORDS SUMMARY | 2025-01-19 22:16 | External Medical Summary | Summary of Care ---
Author Name Unknown Organization [facility] Address [address] [place] [address] Phone [phone] Care Team Providers Care Bpm Developer Name Role Phone Rose Marie Galloway MD Primary Care Provide r Reason for Visit * Reason Onset Date Comments Test Results 12/29/2024 Encounter Details Date Type Department Care Team (Late st Contact Info) Description 12/29/2024 Telephone Cardiology, [facility] [address] [place] [address] Graeme Pang PA-C [address] [facility] [place] [address] Test Results Allergies Active Allergy Reactions Criticality Noted Date Comments Docetaxel 02/14/2011 Chest pain, passed out , could not talk, saw silver round bubbles documented as of this encounter (statuses as of 12/29/2024) Medications OXYCODONE HCL 10 MG PO TABSIndications:pa [...] Overview (12/04/2020): 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, [place] II, 11/2020) Hypertensive heart and kidne y [...] cardiomyopathy 04/28/2012 CAREN (generalized anxiety disorder) 01/07/2012 Vjgnjgy-Uhtym-Ihjyt disease 12/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 manager terminal current use of anticoagulant therapy 0 05/12/2006 [...] (Moderna) 02/12/2021,01/15/2021 Pneumococcal Conjugate Vacci ne, 20-valent (Sxlenqn91) 11/21/2022 Pneumococcal Polysaccharide PPV23 (Pneumovax) 08/12/2006 Seasonal [...] encounter Miscellaneous Notes * Telephone Encounter - Idalmis Vega CMA [...] 03/15/2025 1:20 PM EDT Office Visit Family [address] [phone] Denise Garcia MD [address] [place] [address] [place] [address] 04/22/2025 12:20 PM EDT Office Visit Dermatology [facility] [address] [facility] [place] [address] Cindi Vo PA-C [address] [facility] [address] 06/21/2025 1:40 PM EDT Office Visit Family [address] [phone] Rose Marie Galloway MD [address] [place] [address] [place] [address] 10/21/2025 1:00 PM EST Office Visit Optometry, [place] 16 [place] [address] Raudel Hernandez OD 16 [place] [address] 11/10/2025 2:30 PM EST Office Visit Cardiology [address] [place] [address] Graeme Pang PA-C [address] [place] [address] 01/03/2026 1:30 PM EDT Nurse Only Ancillary [place] Nunes[address] [place] [address] [employer], Nurse [address] [place] [address] Scheduled Orders Name Type Priority Associated Diagnoses [...] Scan 11/04/2024 11/04/2022, 11/04/2022 GFR 06/30/2025 12/28/2024, 01/2025, 11/23/2024, Additional history exists Cologuard 08/21/2025 08/21/2022, 05/2022, 08/13/2022, Additional history exists Colorectal Cancer Screening 08/21/2025 TSH 11/23/2025 11/23/2024, 08, 11/12/2023, Additional history exists CKD HGB USE SMARTSET 68343 12/07/202512/07, 12/07/2024, 11/23/2024, Additional history exists CKD PHOS USE SMARTSET 01834 12/07/2025 03/0 01/2025, 05/25/2024, 12/24/2022, Additional history [...] D LEVEL ONCE IN A LIFETIME-USE SMARTSET# 72623 Completed 05/25/2024, 06/04/2023, 11/05/2022, Additional history exists [...] this encounter Medical Devices Implanted Type Area Break Out Man Device Identifier Shelf Expiration Date Model / Serial / Lot Alloderm 6 X 16cm Implanted:Qty: 1 on 02/05/2007 [place] [facility] [place] Breast LIFE CELL MADDIE [id number] / [id number] / [id number] Description:Alloderm 6 x 16 cm to right breast [id number] - [id number] Implanted:Qty: 1 on 02/05/2007 [place] [facility] [place]: Breast LIFE CELL MADDIE [id number] / [id number] / [id number] Description:ALLODERM TO left breast 6 x 16cm [place] Breast Implant Implanted:Qty: 1 on 02/05/2007 at [place] [facility] [place]: Breast MENTOR MADDIE 08/06/2010 350-1697 / [id number] / [id number] Description:700ml Breast Imp lant to Right Breast [place] Breast Implant Implanted:Qty: 1 on 02/05/2007 at [place] [facility] [place]: Breast MENTOR MADDIE 08/06/2010 350-1697 / [id number] / [id number] Description:[place] Breast Im plant to Left BreaST Graft Fascia Nevin 2x3 53093 - [id number] Implanted:Qty: 1 on 03/20/2010 at OR [facility] Right: Eye IOP INC 06/06/2014 14271 / / [id number] Breast Implant 350-1697 Saline - [id number] Implanted:Qty: 1 on 04/20/2011 at [place] [facility] [place]: Breast MENTOR MADDIE 04/04/2015 350-1697 / [id number] / [id number] Description:[place] smooth ro und moderate profile saline. Envelope Antibacteral Tyrx - [id number] Implanted:Qty: 1 on 05/14/2024 by Zulema Giordano IV, MD at [facility] [place] [employer] : CRM [id number] 01/30/2025 CMRM6 133 / / [id number] Defib [place] Mri Quad Ems Manager-D - [id number] Implanted:Qty: 1 on 05/14/2024 by Zulema Giordano IV, MD at [facility] [place] [employer] [id number] 07/03/2025 [id number] / [id number] / [id number] Ring Morcher Type 14a Mr-1410 - [id number] Implanted:Qty: 1 on 08/17/2024 by Frank Zuñiga MD at OR [facility] Right: Eye MORCHER [id number] 04/04/2026 MR-1410 / [id number] / [id number] Lens 17.5 [id number] - [id number] Implanted:Qty: 1 on 08/17/2024 by Frank Zuñiga MD at OR [facility] Right: Eye ANNABELLE : SURGICAL [id number] 03/15/2029 [id number] / [id number] / [id number] documented as of this encounter Visit [...] and were consensually agreed upon. Care Teams Bpm Developer Relationship Specialty Start Date End Date Rose Marie Galloway MD [address] [place] [address] [place] [address] PCP - General Family Medicine 05/24/14 documented as of this encounter
--- OUTSIDE RECORDS SUMMARY | 2025-01-19 22:16 | External Medical Summary | Summary of Care ---
Author Name Unknown Organization [facility] Address [address] [place] [address] Phone [phone] Care Team Providers Care Inspector Final Assembly Conveyor Line Name Role Phone Rose Marie Galloway MD Primary Care Provide r Reason for Visit * Reason Onset Date Comments Test Results 12/29/2024 Encounter Details Date Type Department Care Team (Late st Contact Info) Description 12/29/2024 Telephone Cardiology, [facility] [address] [place] [address] Graeme Pang PA-C [address] [place] [address] Test Results Allergies Active Allergy Reactions Criticality [...] Overview (12/04/2020): 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, [place] II, 11/2020) Hypertensive heart and kidne y [...] cardiomyopathy 04/28/2012 CAREN (generalized anxiety disorder) 01/07/2012 Iikkqls-Qmshf-Wlsby disease 12/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 supervisor intermediates current use of anticoagulant therapy 0 05/12/2006 [...] (Moderna) 02/12/2021,01/15/2021 Pneumococcal Conjugate Vacci ne, 20-valent ([id number]) 11/21/2022 Pneumococcal Polysaccharide PPV23 (Pneumovax) 08/12/2006 Seasonal [...] 03/15/2025 1:20 PM EDT Office Visit Family [address] [phone] Denise Garcia MD [address] [place] [address] [place] [address] 04/22/2025 12:20 PM EDT Office Visit Dermatology [facility] [address] [facility] [place] [address] Cindi Vo PA-C [address] [facility] [place] [address] 06/21/2025 1:40 PM EDT Office Visit Family [address] [address] Rose Marie Galloway MD [address] [place] [address] [place] [address] 10/21/2025 1:00 PM EST Office Visit Optometry, [place] 16 [place] [address] Raudel Hernandez OD 16 [place] [address] 11/10/2025 2:30 PM EST Office Visit Cardiology [address] [place] [address] Graeme Pang PA-C [address] [place] [address] 01/03/2026 1:30 PM EDT Nurse Only Ancillary Anais Nunes[address] [place] [address] Movall[employer]x, Nurse [address] [place] [address] Scheduled Orders Name Type Priority Associated Diagnoses [...] Additional history exists CKD HGB USE SMARTSET 30900 12/07/202512/07, 12/07/2024, 11/23/2024, Additional history exists CKD PHOS USE SMARTSET 40448 12/07/2025 03/0 01/2025, 05/25/2024, 12/24/2022, Additional history [...] D LEVEL ONCE IN A LIFETIME-USE SMARTSET# 96009 Completed 05/25/2024, 06/04/2023, 11/05/2022, Additional history exists [...] this encounter Medical Devices Implanted Type Area Thread Cutter Device Identifier Shelf Expiration Date Model / Serial / Lot Alloderm 6 X 16cm Implanted:Qty: 1 on [place] [facility] [place] Breast LIFE CELL MADDIE [id number] / [id number] / [id number] Description:Alloderm 6 x 16 cm to right breast [id number] - [id number] Implanted:Qty: 1 on 02/05/2007 [place] [facility] [place]: Breast LIFE CELL MADDIE [id number] / [id number] / [id number] Description:ALLODERM TO left breast 6 x 16cm [place] Breast Implant Implanted:Qty: 1 on 02/05/2007 [place] [facility] [place]: Breast MENTOR MADDIE 08/06/2010 350-1697 / [id number] / [id number] Description:700ml Breast Imp lant to Right Breast [place] Breast Implant Implanted:Qty: 1 on 02/05/2007 [place] [facility] [place]: Breast MENTOR MADDIE 08/06/2010 350-1697 / [id number] / [id number] Description:[place] Breast Im plant to Left BreaST Graft Fascia Nevin 2x3 73932 - [id number] Implanted:Qty: 1 on 03/20/2010 at [facility] Right: Eye IOP INC 06/06/2014 05041 / / [id number] Breast Implant 350-1697 Saline - [id number] Implanted:Qty: 1 on 04/20/2011 [place] [facility] [place]: Breast MENTOR MADDIE 04/04/2015 350-1697 / [id number] / [id number] Description:[place] smooth ro und moderate profile saline. Envelope Antibacteral Tyrx - [id number] Implanted:Qty: 1 on 05/14/2024 by Zulema Giordano IV, MD at [facility] [employer] : CRM [id number] 01/30/2025 CMRM6 133 / / [id number] Defib [place] Mri Quad Vp Analysis-D - [id number] Implanted:Qty: 1 on 05/14/2024 by Zulema Giordano IV, MD at [facility] [employer] [id number] 07/03/2025 [id number] / [id number] / [id number] S Ring Morcher Type 14a Mr-1410 - [id number] Implanted:Qty: 1 on 08/17/2024 by Frank Zuñiga MD at [facility] Right: Eye MORCHER [id number] 04/04/2026 MR-1410 / [id number] / [id number] Lens 17.5 [id number] - [id number] Implanted:Qty: 1 on 08/17/2024 by Frank Zuñiga MD at OR [facility] Right: Eye ANNABELLE : SURGICAL [id number] 03/15/2029 [id number] / [id number] / [id number] documented as of this encounter Visit [...] and were consensually agreed upon. Care Teams Inspector Final Assembly Conveyor Line Relationship Specialty Start Date End Date Rose Marie Galloway MD [address] [place] [address] [place] [address] PCP - General Family Medicine 05/24/14 documented as of this encounter
--- OUTSIDE RECORDS SUMMARY | 2025-01-19 22:16 | External Medical Summary | Summary of Care ---
Author Name Unknown Organization [facility] Address [address] [place] [address] Phone [phone] Care Team Providers Care Hockey Instructor Name Role Phone Rose Marie Galloway MD Primary Care Provide r Reason for Visit * Reason Comments Outpatient Testing Encounter Details Date Type Department Care Team (Late st Contact Info) Description 12/28/2024 1:20 PM EDT Laboratory Laboratory [address] [place] [phone] [place] [address] Encounter for monitoring diuretic therapy Allergies Active Allergy Reactions Criticality Noted Date Comments Docetaxel 02/14/2011 Chest pain, passed out , could not talk, saw silver round bubbles documented as of this encounter (statuses as of 12/28/2024) Medications OXYCODONE HCL 10 MG PO TABSIndications:pa [...] Overview (12/04/2020): 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, [place] II, 11/2020) Hypertensive heart and kidne y [...] cardiomyopathy 04/28/2012 CAREN (generalized anxiety disorder) 01/07/2012 Yxjptqx-Itxoi-Cwmpx disease 12/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 blueprint maker current use of anticoagulant therapy 0 05/12/2006 [...] (Moderna) 02/12/2021,01/15/2021 Pneumococcal Conjugate Vacci ne, 20-valent (Ejjedyf76) 11/21/2022 Pneumococcal Polysaccharide PPV23 (Pneumovax) 08/12/2006 Seasonal [...] 1:20 PM EDT Office Visit Family Medicine [facility] [place] [place] [phone] Denise Garcia MD [address] [place] [address] [place] [phone] 04/22/2025 12:20 PM EDT Office Visit [facility]atology [facility] [place] [address] [place] [address] Cindi Vo PA-C [address] [place] [address] 06/21/2025 1:40 PM EDT Office Visit Family Medicine [address] [place] [address] Rose Marie Galloway MD [address] [place] [address] [place] [address] 10/21/2025 1:00 PM EST Office Visit Optometry, [place] 16 [place] [address] Raudel Hernandez, 16 [place] [address] 11/10/2025 2:30 PM EST Office Visit Cardiology [address] [place] [address] Graeme Pang PA-C [address] [place] [address] 01/03/2026 1:30 PM EDT Nurse Only Ancillary [address] [place] [address] [place], Nurse [address] [place] [address] Pending Results Name Type Priority Associated Diagnoses Date /Time BASIC METABOLIC PANEL Lab Routine Encounter for monitoring diuretic therapy 12/28/2024 1:11 PM EDT Health Maintenance Due Date Last Done Comments [...] Additional history exists CKD HGB USE SMARTSET 27551 12/07/202512/07, 12/07/2024, 11/23/2024, Additional history exists CKD PHOS USE SMARTSET 72386 12/07/2025 03/0 01/2025, 05/25/2024, 12/24/2022, Additional history [...] D LEVEL ONCE IN A LIFETIME-USE SMARTSET# 44196 Completed 05/25/2024, 06/04/2023, 11/05/2022, Additional history exists [...] this encounter Medical Devices Implanted Type Area Shipyard Painting Supervisor Device Identifier Shelf Expiration Date Model / Serial / Lot Alloderm 6 X 16cm Implanted:Qty: 1 on 02/05/2007 [place] [facility] [place] [place]: Breast LIFE CELL MADDIE [id number] / [id number] / [id number] Description:Alloderm 6 x 16 cm to right breast [id number] - [id number] Implanted:Qty: 1 on 02/05/2007 [place] [facility] [place]: Breast LIFE CELL MADDIE [id number] / [id number] / [id number] Description:ALLODERM TO left breast 6 x 16cm [place] Breast Implant Implanted:Qty: 1 on 02/05/2007 [place] [facility] Right: Breast MENTOR MADDIE 08/06/2010 350-1697 / [id number] / [id number] Description:700ml Breast Imp lant to Right Breast [place] Breast Implant Implanted:Qty: 1 on 02/05/2007 [place] [facility] Left: Breast MENTOR MADDIE 08/06/2010 350-1697 / [id number] / [id number] Description:[place] Breast Im plant to Left BreaST Graft Fascia Nevin 2x3 43833 - [id number] Implanted:Qty: 1 on 03/20/2010 at [facility] Right: Eye IOP INC 06/06/2014 90247 / / [id number] Breast Implant 350-1697 Saline - [id number] Implanted:Qty: 1 on 04/20/2011 at [place] [facility] Right: Breast MENTOR MADDIE 04/04/2015 350-1697 / [id number] / [id number] Description:[place] smooth ro und moderate profile saline. Envelope Antibacteral Tyrx - [id number] Implanted:Qty: 1 on 05/14/2024 by Zulema Giordano IV, MD at [facility] [employer] : CRM [id number] 01/30/2025 CMRM6 133 / / [id number] Defib [place] Mri Quad Pharmacy Intern-D - [id number] Implanted:Qty: 1 on 05/14/2024 by Zulema Giordano IV, MD at [facility] [employer] [id number] 07/03/2025 [id number] / [id number] / [id number] S Ring Morcher Type 14a Mr-1410 - [id number] Implanted:Qty: 1 on 08/17/2024 by Frank Zuñiga MD at [facility] Right: Eye MORCHER [id number] 04/04/2026 MR-1410 / [id number] / [id number] Lens 17.5 [id number] - [id number] Implanted:Qty: 1 on 08/17/2024 by Frank Zuñiga MD at [facility] Right: Eye ANNABELLE : SURGICAL [id number] 03/15/2029 [id number] / [id number] / [id number] documented as of this encounter Visit Diagnoses Diagnosis Encounter for monitoring diuretic therapy Encounter for therapeutic drug monitoring documented in [...] and were consensually agreed upon. Care Teams Hockey Instructor Relationship Specialty Start Date End Date Rose Marie Galloway MD [address] [place] [address] [place] [address] PCP - General Family Medicine 05/24/14 documented as of this encounter
--- OUTSIDE RECORDS SUMMARY | 2025-01-19 22:16 | External Medical Summary | Summary of Care ---
Author Name Unknown Organization [facility] Address [address] [place] [address] Phone [phone] Care Team Providers Care Pearl Peller Name Role Phone Rose Marie Galloway MD Primary Care Provide r Reason for Visit * Reason Onset Date Comments Test Results 12/29/2024 Encounter Details Date Type Department Care Team (Late st Contact Info) Description 12/29/2024 Telephone Cardiology, [facility] [address] [place] [address] Graeme Pang PA-C [address] [facility] [place] [address] Test Results Allergies Active Allergy Reactions Criticality [...] Overview (12/04/2020): 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, [place] II, 11/2020) Hypertensive heart and kidne y [...] cardiomyopathy 04/28/2012 CAREN (generalized anxiety disorder) 01/07/2012 Ghptrvs-Bdteh-Ypbab disease 12/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 vermin 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 current use of anticoagulant therapy 0 [...] (Moderna) 02/12/2021,01/15/2021 Pneumococcal Conjugate Vacci ne, 20-valent (Bibofaw31) 11/21/2022 Pneumococcal Polysaccharide PPV23 (Pneumovax) 08/12/2006 Seasonal [...] to patient: self Phone/Fax to return call: [phone] Reason for call(brief): Test Results Pharmacy: Provider Name: Graeme Pang PA-C Detailed message to office: Pt calling in for results. Transferred to [place]. * Telephone Encounter - Idalmis Vega CMA [...] 1:20 PM EDT Office Visit Family Medicine [address] [place] [phone] Denise Garcia MD [address] [place] [address] [place] [phone] 04/22/2025 12:20 PM EDT Office Visit Dermatology [facility] [place] [address] [facility] [place] [address] Cindi Vo PA-C [address] [facility] [place] [address] 06/21/2025 1:40 PM EDT Office Visit Family Medicine [address] [place] [phone] Rose Marie Galloway MD [address] [place] [address] [place] [address] 10/21/2025 1:00 PM EST Office Visit Optometry, [place] 16 [place] [address] Raudel Hernandez, OD 16 [place] [address] 11/10/2025 2:30 PM EST Office Visit Cardiology [address] [place] [address] Graeme Pang PA-C [address] [place] [address] 01/03/2026 1:30 PM EDT Nurse Only Ancillary [address] [place] [address] [place], Nurse [address] [place] [address] Scheduled Orders Name Type Priority Associated Diagnoses [...] Additional history exists CKD HGB USE SMARTSET 72221 12/07/202512/07, 12/07/2024, 11/23/2024, Additional history exists CKD PHOS USE SMARTSET 48672 12/07/2025 03/0 01/2025, 05/25/2024, 12/24/2022, Additional history [...] D LEVEL ONCE IN A LIFETIME-USE SMARTSET# 67961 Completed 05/25/2024, 06/04/2023, 11/05/2022, Additional history exists [...] this encounter Medical Devices Implanted Type Area Surgical Services Coordinator Device Identifier Shelf Expiration Date Model / Serial / Lot Alloderm 6 X 16cm Implanted:Qty: 1 on 02/05/2007 [place] [facility] [place] [place]: Breast LIFE CELL MADDEI [id number] / [id number] / [id number] Description:Alloderm 6 x 16 cm to right breast [id number] - [id number] Implanted:Qty: 1 on 02/05/2007 at [place] [facility] Left: Breast LIFE CELL MADDIE [id number] / [id number] / [id number] Description:ALLODERM TO left breast 6 x 16cm [place] Breast Implant Implanted:Qty: 1 on 02/05/2007 at [place] [facility] Right: Breast MENTOR MADDIE 08/06/2010 350-1697 / [id number] / [id number] Description:700ml Breast Imp lant to Right Breast [place] Breast Implant Implanted:Qty: 1 on 02/05/2007 at [place] [facility] Left: Breast MENTOR MADDIE 08/06/2010 350-1697 / [id number] 93 / [id number] Description:[place] Breast Im plant to Left BreaST Graft Fascia Nevin 2x3 39332 - [id number] Implanted:Qty: 1 on 03/20/2010 at [facility] Right: Eye IOP INC 06/06/2014 56981 / / [id number] Breast Implant 350-1697 Saline - [id number] Implanted:Qty: 1 on 04/20/2011 at [place] [facility] Right: Breast MENTOR MADDIE 04/04/2015 350-1697 / [id number] 44 / [id number] Description:[place] smooth ro und moderate profile saline. Envelope Antibacteral Tyrx - [id number] Implanted:Qty: 1 on 05/14/2024 by Zulema Giordano IV, MD at [facility] [employer] : CRM [id number] 01/30/2025 CMRM6 133 / / [id number] Defib [place] Mri Quad Research Geologist-D - [id number] Implanted:Qty: 1 on 05/14/2024 by Zulema Giordano IV, MD at [facility] [employer] [id number] 07/03/2025 [id number] / [id number] S / [id number] S Ring Any Type 14a Mr-1410 - [id number] Implanted:Qty: 1 on 08/17/2024 by Frank Zuñiga MD at [facility] Right: Eye LUISCHER [id number] 04/04/2026 MR-1410 / [id number] / [id number] Lens 17.5 [id number] - [id number] Implanted:Qty: 1 on 08/17/2024 by Frank Zuñiga MD at [facility] Right: Eye ANNABELLE : SURGICAL [id number] 03/15/2029 [id number] / [id number] / [id number] documented as of this encounter Visit [...] and were consensually agreed upon. Care Teams Pearl Peller Relationship Specialty Start Date End Date Rose Marie Galloway MD [address] [place] [address] [place] [phone] PCP - General Family Medicine 05/24/14 documented as of this encounter
--- OUTSIDE RECORDS SUMMARY | 2025-01-19 22:16 | External Medical Summary | Summary of Care ---
Author Name Unknown Organization [facility] Address [address] [place] [address] Phone [phone] Care Team Providers Care Concrete Smoother Name Role Phone Rose Marie Galloway MD Primary Care Provide r Reason for Visit * Reason Onset Date Comments Med Request 12/24/2024 Encounter Details Date Type Department Care Team (Late st Contact Info) Description 12/24/2024 Telephone Cardiology [address] [place] [phone] Graeme Pang PA-C [address] [place] [address] Med Request Allergies Active Allergy Reactions Criticality Noted Date [...] 1 Tablet before bedtime. 200 Tablet 3 12/01/19 25 8:05 AM EST 025 Active Additional Information Patient taking differently: 2.5 mgOral BID (.AM/PM), Reported on 12/07/2024 Empagliflozin 10 MG Oral Tablet (Jardiance)Indica tions:Systolic heart failure, chronic (HCC),Drug-induce d cardiomyopathy (HCC),HTN, goal below 140/90 Take 1 Tablet by mouth in the morning. 100 Tablet 3 12/01/19 25 8:05 AM EST 025 Active hydrOXYzine 5 [...] before bedtime. 180 Tablet 3 025 Active Metoprolol Succinate ER 50 MG Oral Tablet Extended Release 24 Hour (toPROL XL) Take 1 Tablet by mouth in the morning and 1 Tablet before bedtime. 025 2024 Discontinued(R efill) Escitalopram Oxalate 10 MG Oral Tablet (Lexapro) [...] Overview (12/04/2020): 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, [place] II, 11/2020) Hypertensive heart and kidne y [...] cardiomyopathy 04/28/2012 CAREN (generalized anxiety disorder) 01/07/2012 Tvrlwac-Fqfsj-Cdiqy disease 12/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 care home current use of anticoagulant therapy 0 [...] (Moderna) 02/12/2021,01/15/2021 Pneumococcal Conjugate Vacci ne, 20-valent (Acjguas06) 11/21/2022 Pneumococcal Polysaccharide PPV23 (Pneumovax) 08/12/2006 Seasonal [...] encounter Miscellaneous Notes * Telephone Encounter - Lara Adrian, hospice volunteer coordinator - 12/24/2024 11:53 AM EDT Pt calling requesting the following medication below that is listed as "Historical". The following information was provided: Medication Name: Metoprolol Succinate ER Strength: 50 mg Directions: 1 in am, 1 in pm Preferred Quantity: 90 day Previous Prescriber: hospitalist Preferred Pharmacy: [id number] [address] [facility] Please review and approve if appropriate. Lara Diego Veneer Production Machine Operator III [facility] 12/24/2024,11:53 AM documented in this encounter Plan of Treatment Upcoming Encounters Date Type Department Care Team (Late st Contact Info) Description 12/28/2024 11:00 AM EDT Nurse Only Ancillary [address] [place] [address] [place], Nurse [address] [place] [address] 12/28/2024 12:30 PM EDT Office Visit Cardiology [address] [place] [address] Graeme Pang PA-C [address] [place] [address] 03/15/2025 1:20 PM EDT Office Visit Family Medicine [address] [place] [phone] Denise Garcia MD [address] [place] [address] [place] [phone] 04/22/2025 12:20 PM EDT Office Visit Dermatology [place] [facility] [place] [address] [facility] [place] [address] Cindi Vo PA-C [address] [place] [address] 06/21/2025 1:40 PM EDT Office Visit Family Medicine [address] [place] [phone] Rose Marie Galloway MD [address] [place] [address] [place] [address] 10/21/2025 1:00 PM EST Office Visit Optometry, [place] 16 [place] [address] Raudel Hernandez, OD 16 [place] [address] Health Maintenance Due Date Last Done Comments [...] Additional history exists CKD HGB USE SMARTSET 03300 12/07/202512/07, 12/07/2024, 11/23/2024, Additional history exists CKD PHOS USE SMARTSET 87517 12/07/2025 03/0 01/2025, 05/25/2024, 12/24/2022, Additional history exists Diabetes Screening 12/08/2027 12/07/2024, 0 11/23/2024, 09/20/2024, Additional history exists DTap/Tdap Vaccines (3 - Td or Tdap) 09/01/2028 09/01/2018, 03/14/2008 Lipid Panel 11/12/2028 11/12/2023, 12/05, 01/24/2022, Additional history exists Pap Smear Discontinued 03/26/2022, 03/06, 11/27/2015, Additional history exists Pneumococcal Vaccine: 50+ Years Completed 11/21/2022, 08/12/2006 VITAMIN D LEVEL ONCE IN A LIFETIME-USE SMARTSET# 47079 Completed 05/25/2024, 06/04/2023, 11/05/2022, Additional history exists [...] this encounter Medical Devices Implanted Type Area Phytochemistry Professor Device Identifier Shelf Expiration Date Model / Serial / Lot Alloderm 6 X 16cm Implanted:Qty: 1 on 02/05/2007 at OR [facility] Right: Breast LIFE CELL MADDIE [id number] / [id number] / [id number] Description:Alloderm 6 x 16 cm to right breast [id number] - [id number] Implanted:Qty: 1 on 02/05/2007 at OR [facility] Left: Breast LIFE CELL MADDIE 945953 / [id number] / [id number] Description:ALLODERM TO left breast 6 x 16cm [place] Breast Implant Implanted:Qty: 1 on 02/05/2007 at OR [facility] Right: Breast MENTOR MADDIE 08/06/2010 350-1697 / [id number] 42 / [id number] Description:700ml Breast Imp lant to Right Breast [place] Breast Implant Implanted:Qty: 1 on 02/05/2007 at OR [facility] Left: Breast MENTOR MADDIE 08/06/2010 350-1697 / [id number] / [id number] Description:[place] Breast Im plant to Left BreaST Graft Fascia Nevin 2x3 95920 - [id number] Implanted:Qty: 1 on 03/20/2010 at [facility] Right: Eye IOP INC 06/06/2014 07659 / / [id number] Breast Implant 350-1697 Saline - [id number] Implanted:Qty: 1 on 04/20/2011 at OR [facility] Right: Breast MENTOR MADDIE 04/04/2015 350-1697 / [id number] / [id number] Description:[place] smooth ro und moderate profile saline. Envelope Antibacteral Tyrx - [id number] Implanted:Qty: 1 on 05/14/2024 by Zulema Giordano IV, MD at [facility] [employer] : CRM [id number] 01/30/2025 CMRM6 133 / / [id number] Defib [place] Mri Quad Treating Machine Operator-D - [id number] Implanted:Qty: 1 on 05/14/2024 by Zulema Giordano IV, MD at [facility] [employer] [id number] 07/03/2025 [id number] / [id number] / [id number] S Ring Morcher Type 14a Mr-1410 - [id number] Implanted:Qty: 1 on 08/17/2024 by Frank Zuñiga MD at [facility] Right: Eye MORCHER [id number] 04/04/2026 MR-1410 / [id number] / [id number] Lens 17.5 [id number] - [id number] Implanted:Qty: 1 on 08/17/2024 by Frank Zuñiga MD at [facility] Right: Eye ANNABELLE : SURGICAL [id number] 03/15/2029 [id number] / [id number] / [id number] documented as of this encounter Visit Diagnoses Diagnosis Permanent atrial fibrillation (HCC)- Primary Atrial fibrillation documented in this encounter Advance Directives * Full Code (Latest Code Status on File) Date Activated Date Inactivated Comments 08/17/2024 9:29 AM 08/17/2024 4:31 PM This orde r reflects the patients wishes and were consensually [...] and were consensually agreed upon. Care Teams Concrete Smoother Relationship Specialty Start Date End Date Rose Marie Galloway MD [address] [place] [address] [place] [address] PCP - General Family Medicine 05/24/14 documented as of this encounter
--- OUTSIDE RECORDS SUMMARY | 2025-01-19 22:17 | External Medical Summary | Summary of Care ---
Author Name Unknown Organization [facility] Address [address] [place] [address] Phone [phone] Care Team Providers Care Floor Winder Name Role Phone Rose Marie Galloway MD Primary Care Provide r Reason for Visit * Reason Onset Date Comments Hospital Follow-Up Hospital Follow-Up 12/07/2024 Encounter Details Date Type Department Care Team (Latest Contact Info) Description 12/07/2024 2:00 PM EST Office Visit Family Medicine [address] [phone] Denise Garcia MD [address] [place], [place] [address] [phone] Hospital discharge follow-up*; Hypertensive heart and kidney disease with chronic systolic congestive heart failure and stage 3b chronic kidney disease (HCC); Stage 3 chronic kidney disease, unspecified whether stage 3a or 3b CKD (HCC); Permanent atrial fibrillation (HCC); Hypothyroidism, unspecified type; Secondary renal hyperparathyroidism (HCC); Dyslipidemia, goal LDL below 100; Chronic idiopathic constipation; CAREN (generalized anxiety disorder) Allergies Active Allergy Reactions Criticality Noted Date Comments Docetaxel 02/14/2011 Chest pain, passed out , could not talk, saw silver round bubbles documented as of this encounter (statuses as of 12/07/2024) Medications OXYCODONE HCL 10 MG PO TABSIndications:p [...] Tablet before bedtime. 200 Tablet 3 12/01/19 8:05 AM EST 025 Active Additional Information [...] a day as needed for Anxiety. Active Metoprolol Succinate ER 50 MG Oral Tablet Extended Release 24 Hour (toPROL XL) Take 1 Tablet by mouth in the morning and 1 Tablet before bedtime. 025 Active Escitalopram Oxalate 10 MG Oral Tablet (Lexapro) Take 0.5 Tablets by mouth in the morning. 025 Active Sennosides-Docusa te Sodium 8.6-50 MG Oral Tablet (Senna S) Take 1 Tablet by mouth in the morning. 30 Tablet 1 025 Active Metoprolol Succinate ER 100 MG Oral Tablet Extended Release 24 Hour (toPROL XL)Indications:Pe rmanent atrial fibrillation (HCC),Drug-induce d cardiomyopathy (HCC),HTN, goal below 140/90 TAKE 1 TABLET BY MOUTH TWICE A DAY 180 Tablet 3 024 2024 Discontinued(M edication List Clean Up) Escitalopram Oxalate 10 MG Oral Tablet (Lexapro) Take 0.5 Tablets by mouth in the morning. 2024 Discontinued documented as of this encounter (statuses as of 12/07/2024) Active Problems Problem Noted Date Diagnosed Date Stage 3 chronic kidney disease 12/07/2024 Hypothyroidism 12/07/2024 Chronic idiopathic constipation 12/07/2024 NICM (nonischemic cardiomyopathy) 04/19/2024 ICD (implantable cardioverter-defibrillator) in place 04/19/2024 Chronic kidney disease, stage 3b 11/18/2022 Overview: Per CKD protocol Osteoporosis, postmenopausal 11/05/2022 Permanent atrial fibrillation 11/05/2022 Peripheral vascular disease 10/23/2021 Hx of melanoma of skin 12/04/2020 Overview (12/04/2020): 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, [place] II, 11/2020) Hypertensive heart and kidne y [...] cardiomyopathy 04/28/2012 CAREN (generalized anxiety disorder) 01/07/2012 Fvtmyon-Tqvnr-Vsqwj disease 12/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 [facility] current use of anticoagulant therapy 0 05/12/2006 Overview (07/07/2017): ICD-10 update of inactive term History of breast cancer 03/28/2006 Family history of other cardiovascular diseases 05/14/2005 Overview (12/28/2015): ICD-10 update of inactive term FAMILY HX-BREAST MALIG 05/14/2005 HTN, goal below 140/90 06/26/2001 Blindness of left eye documented as of this encounter (statuses as of 12/07/2024) Resolved Problems Problem Noted Date Diagnosed Date [...] as of this encounter (statuses as of 12/07/2024) Immunizations Name Administration Dates Next Due COVID-19 mRNA, LNP-s, No Pre serve, 2-Dose Series (Moderna) 02/12/2021,01/15/2021 Pneumococcal Conjugate Vacci ne, 20-valent ([id number]) 11/21/2022 Pneumococcal Polysaccharide PPV23 (Pneumovax) 08/12/2006 Seasonal [...] Sign Reading Time Taken Comments Blood Pressure 104/75 12/07/2024 1:25 PM EST Pulse 95 12/07/2024 1:25 PM EST Temperature 35.4 °C (95.7 °F) 12/07/2024 1:25 PM ES T Respiratory Rate - - Oxygen Saturation 99% 12/07/2024 1:25 PM EST Inhaled Oxygen Concentration - - Weight 60.1 kg (132 lb 8 oz) 12/07/2024 1:25 PM EST Height 160 cm (5' 2.99") 12/07/2024 1:25 PM EST Body Mass Index 23.48 12/07/2024 1:25 PM EST documented in this encounter Patient Instructions * Patient Instructions* Denise Garcia MD - 12/07/2024 1:36 PM EST Taking Medicine Safely Medicine is given to help treat or prevent illness. But if you don't take it correctly, it might not help. It might even harm you. Your doctor or pharmacist can help you learn the right way to take your medicine. Listed below are some tips to help you take medicine safely. Safety Tips Have a routine for taking each medicine. Make it part of something you do each day, such as brushing your teeth or eating a meal. When you go to the hospital or your doctor's office, bring all your current medicines in their original boxes or bottles. If you can't do that, bring an up-to-date list of your medicines. Do not stop taking a prescription medicine unless your doctor tells you to. Doing so could make your condition worse. Do not share medicines. Let your doctor and pharmacist know of any allergies you have. Taking prescription medicines with alcohol, street drugs, herbs, supplements, or even some zmfm-gdu-zuemhaj medicines can be harmful. Talk to your doctor or pharmacist before using any of these things while taking a prescription medicine. When filling your prescriptions, try using the same pharmacy for all your medicines. If not, let the pharmacist know what medicines you are already on. Keep medicines out of the reach of children and pets. Do not use medicine that has or that doesn't look or smell right. Get rid of it properly. To find out the right way to get rid of medicine: Call your [facility]'s household trash and recycling service and ask if a drug take-back program is available in your community. Call your local pharmacy and ask the right way to get rid of the medicine. Go to http://www.fda.gov/ForConsumers/ConsumerUpdates/uqu015501 to learn how to get rid of medicines safely. Using Generic Medicines Medicines have brand names and generic (chemical) names. When a medicine is first made, it is sold only under its brand name. Later, it can be made and sold as a generic. Generic medicines cost less than brand-name medicines and most work just as well. Most people can use the generic medicine instead of the brand-name medicine, unless their doctor says otherwise. © 9051-4990 [facility], [address] [place] [address], [place] [address]. All rights reserved. This information is not intended as a substitute for professional medical care. Always follow your healthcare professional's instructions. documented in this encounter Progress Notes * Denise Garcia MD - 12/07/2024 1:35 PM EST SUBJECTIVE: Kayce Doherty is a 69 year old female. Chief Complaint Patient presents with Hospital Follow-Up Hospital Follow-Up Recent Admission: Patient was recently admitted to [facility] 11/27. The date of discharge was 11/28. Discharge report received and reviewed. Dx with acute on chronic HFrEF, pulmonary hypertension, and anxiety. History of Present Illness The patient, with a history of heart failure, presents for a post-hospital follow-up. She was admitted for heart failure exacerbation and had her medications adjusted. Notably, her lasix was held, which she found confusing. Also on aldactone MWF. Is on metoprolol. She also reports a new diagnosis of anxiety and has been prescribed escitalopram and hydroxyzine. The patient has been experiencing excessive daytime sleepiness and suspects it may be due to the new medications. She also reports difficulty with bowel movements since discharge, although she was regular during her hospital stay due to medication. The patient's family member present during the visit expressed concern about the patient's breathing at night. Declined home health and SNF during hospitalization. Has follow up with Cardiology this month. 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 Systolic heart failure, chronic (HCC) Ucxledf-Jtmpu-Nbbdx disease Drug-induced cardiomyopathy (HCC) Traumatic cataract Blindness [...] cardiomyopathy) (HCC) ICD (implantable cardioverter-defibrillator) in place Stage 3 chronic kidney disease (HCC) Hypothyroidism Current Outpatient Medications Medication Sig Dispense Refill Levothyroxine Sodium 75 MCG Oral Tablet (Levoxyl) TAKE 1 TABLET BY MOUTH EVERY DAY AT LEAST 30 MIN BEFORE BREAKFAST OR OTHER MEDICATION 90 Tablet 3 Furosemide 40 MG Oral Tablet (Lasix) TAKE 1 TABLET EVERY OTHER DAY, OR DIRECTED 45 Tablet 1 Apixaban 5 MG Oral Tablet (Eliquis) Take 1 Tablet by mouth in the morning and 1 Tablet before bedtime. (Patient taking differently: Take 0.5 Tablets by mouth in the morning and 0.5 Tablets before bedtime.) 200 Tablet 3 OXYCODONE HCL 10 MG PO TABS Take by mouth every 8 hours as needed . Vitamin D3 50 MCG (1999) Oral Capsule Take 1 Capsule by mouth in the morning. 30 Capsule 5 Metoprolol Succinate ER 100 MG Oral Tablet Extended Release 24 Hour (toPROL XL) TAKE 1 TABLET BY MOUTH TWICE A DAY (Patient not taking: Reported on 12/07/2024) 180 Tablet 3 Rosuvastatin Calcium 20 MG Oral Tablet (Crestor) TAKE 1 TABLET BY MOUTH EVERY DAY 90 Tablet 3 Spironolactone 25 MG Oral Tablet (Aldactone) Take 0.5 Tablets by mouth once a day on Friday, Friday, and Friday only. 19 Tablet 3 Empagliflozin 10 MG Oral Tablet (Jardiance) Take 1 Tablet by mouth in the morning. 100 Tablet 3 Escitalopram Oxalate 10 MG Oral Tablet (Lexapro) Take 0.5 Tablets by mouth in the morning. hydrOXYzine 5 MG OR TABS Take 1 Tablet by mouth 4 times a day as needed for Anxiety. No current facility-administered medications for this visit. Current and discharge medications have been reconciled. Review of patient's allergies indicates: Allergen Reactions Docetaxel Chest pain, passed out , could not talk, saw silver round bubbles OBJECTIVE: BP 104/75 | Pulse 95 | Temp 95.7 °F (35.4 °C) (Infrared ) | Ht 5' 2.99" (1.6 m) | Wt 132 lb 8 oz (60.1 kg) | LMP 04/07/2006 | SpO2 99% | BMI 23.48 kg/m² | BSA 1.63 m² PHYSICAL EXAM: BP 104/75 | Pulse 95 | Temp 95.7 °F (35.4 °C) (Infrared ) | Ht 5' 2.99" (1.6 m) | Wt 132 lb 8 oz (60.1 kg) | LMP 04/07/2006 | SpO2 99% | BMI 23.48 kg/m² | BSA 1.63 m² General: alert, healthy, and no distress Neck: supple, no adenopathy, thyroid normal size, non-tender, without nodularity Lymph: no palpable lymphadenopathy Heart: regular rate & rhythm, no murmur, and no gallops Lungs: chest symmetric with normal AP diameter, no chest deformities noted, no chest wall tenderness, lungs clear to auscultation Abdomen: abdomen soft, non-tender, normal bowel sounds, and no masses or organomegaly Extremities: no joint deformities, effusion, or inflammation, no edema ASSESSMENT: Assessment & Plan Congestive Heart Failure Recently hospitalized for acute decompensation. Lasix was held, likely due to renal function concerns. No current symptoms of fluid overload. Order labs to assess renal function and liver enzymes. Ifrenal function is stable, restart Lasix. Anxiety Newly diagnosed and started on escitalopram and hydroxyzine. She reports excessive daytime sleepiness. Shift escitalopram to evening dosing to potentially mitigate this issue. Constipation Reports difficulty with bowel movements since hospital discharge. Prescribe a combination of stool softener with Senna, to be picked up at [facility] in [place]. General Health Maintenance / Followup Plans Schedule a follow-up appointment in three months. Cardiology follow-up is scheduled for the current month. The oil field caser will meet with her post-consultation. Hospital discharge follow-up (Primary) - DISCH MED RECON CUR MED LIS Hypertensive heart and kidney disease with chronic systolic congestive heart failure and stage 3b chronic kidney disease (HCC) - COMPREHENSIVE METABOLIC PANEL; Future; Expected date: 12/07/2024 Stage 3 chronic kidney disease, unspecified whether stage 3a or 3b CKD (HCC) - MAGNESIUM; Future; Expected date: 12/07/2024 - PHOSPHORUS; Future; Expected date: 12/07/2024 - CBC WITH WBC DIFFERENTIAL; Future; Expected date: 12/07/2024 - COMPREHENSIVE METABOLIC PANEL; Future; Expected date: 12/07/2024 Permanent atrial fibrillation (HCC) - CBC WITH WBC DIFFERENTIAL; Future; Expected date: 12/07/2024 Hypothyroidism, unspecified type On synthroid, continue dosage Secondary renal hyperparathyroidism (HCC) Check PTH - CBC WITH WBC DIFFERENTIAL; Future; Expected date: 12/07/2024 - PTH; Future; Expected date: 12/07/2024 Dyslipidemia, goal LDL below 100 Continue crestor Chronic idiopathic constipation Other orders - Sennosides-Docusate Sodium 8.6-50 MG Oral Tablet (Senna S); Take 1 Tablet by mouth in the morning. PLAN: Follow up in 3 month(s). I spent a total of 30-39 minutes (exact time 30 mins) minutes on the date of service in preparation, delivery, and documentation of the care provided to Kayce Doherty excluding any time spent in performance of separately billed services. Denise Mendes MD documented in this encounter Nursing Notes * Shonda Ballard CMA - 12/07/2024 1:25 PM EST Hospital f/u dx with panic attacks, needs help with meds. Was hospitalized fro CHF, again Wants Kidney labs done again. Pt reports is weak still since her d/c Wants to know if can take lexapro at night, as she thinks has been making her sleepy during the dayso she does not sleep at night. documented in this encounter Plan of Treatment Upcoming Encounters Date Type Department Care Team (Late st Contact Info) Description 12/21/2024 1:45 PM EDT Imaging Radiology [address], [place] [address] [place] [phone] 12/28/2024 11:00 AM EDT Nurse Only Ancillary [address] [place] [address] [place], Nurse Annual Wellness [address] [place] [address] [place] [address] 12/28/2024 12:30 PM EDT Office Visit Cardiology [address] [place] [address] Graeme Pang PA-C [address] [place] [address] 03/15/2025 1:20 PM EDT Office Visit Family Medicine [address] [place] [phone] Denise Garcia MD [address] [place] [address] [place] [phone] 04/22/2025 12:20 PM EDT Office Visit Dermatology Jacob Dacia [place] [address] [place] [address] Cindi Vo PA-C [address] [place] [address] 06/21/2025 1:40 PM EDT Office Visit Family Medicine [address] [place] [phone] Rose Marie Galloway MD [address] [place] [address] [place] [address] 10/21/2025 1:00 PM EST Office Visit Optometry, [place] [address] [place] [address] Raudel Hernandez, MEHNAZ [address] [place] [address] Pending Results Name Type Priority Associated Diagnoses Date /Time MAGNESIUM Lab Routine Stage 3 chronic kidney disease, unspecified whether stage 3a or 3b CKD (HCC) 12/07/2024 2:10 PM EST PHOSPHORUS Lab Routine Stage 3 chronic kidney disease, unspecified whether stage 3a or 3b CKD (HCC) 12/07/2024 2:10 PM EST CBC WITH WBC DIFFERENTIAL Lab Routine Permanent atrial fibrillation (HCC) Stage 3 chronic kidney disease, unspecified whether stage 3a or 3b CKD (HCC) Secondary renal hyperparathyroidism (HCC) 12/07/2024 2:10 PM EST COMPREHENSIVE METABOLIC PANEL Lab Routine Stage 3 chronic kidney disease, unspecified whether stage 3a or 3b CKD (HCC) Hypertensive heart and kidney disease with chronic systolic congestive heart failure and stage 3b chronic kidney disease (HCC) 12/07/2024 2:10 PM EST PTH Lab Routine Secondary renal hyperparathyroidism (HCC) 12/07/2024 2:10 PM EST Scheduled Orders Name Type Priority Associated Diagnoses Orde r Schedule MAGNESIUM Lab Routine Stage 3 chronic kidney disease, unspecified whether stage 3a or 3b CKD (HCC) Expected: 12/07/2024 (Approximate), Expires: 12/07/2025 PHOSPHORUS Lab Routine Stage 3 chronic kidney disease, unspecified whether stage 3a or 3b CKD (HCC) Expected: 12/07/2024 (Approximate), Expires: 12/07/2025 CBC WITH WBC DIFFERENTIAL Lab Routine Permanent atrial fibrillation (HCC) Stage 3 chronic kidney disease, unspecified whether stage 3a or 3b CKD (HCC) Secondary renal hyperparathyroidism (HCC) Expected: 12/07/2024 (Approximate), Expires: 12/07/2025 COMPREHENSIVE METABOLIC PANEL Lab Routine Stage 3 chronic kidney disease, unspecified whether stage 3a or 3b CKD (HCC) Hypertensive heart and kidney disease with chronic systolic congestive heart failure and stage 3b chronic kidney disease (HCC) Expected: 12/07/2024 (Approximate), Expires: 12/07/2025 PTH Lab Routine Secondary renal hyperparathyroidism (HCC) Expected: 12/07/2024 (Approximate), Expires: 12/07/2025 Health Maintenance Due Date Last Done Comments [...] Additional history exists CKD PHOS USE SMARTSET 12650 05/25/2025 082 , 12/24/2022, 12/05/2021, Additional history exists Cologuard 08/21/2025 08/21/2022, 1105/2022, 08/13/2022, Additional history exists Colorectal Cancer Screening 08/21/2025 Depression Screening 10/20/2025 10/20/2024 CKD HGB USE SMARTSET 10347 11/23/202511/23, 11/23/2024, 05/14/2024, Additional history exists TSH 11/23/2025 11/23/2024, 08, 11/12/2023, Additional history exists Diabetes Screening 11/23/2027 11/23/2024, 1 11/21/2023, 05/25/2024, Additional history exists DTap/Tdap Vaccines (3 - Td or Tdap) 09/01/2028 09/01/2018, 03/14/2008 Lipid Panel 11/12/2028 11/12/2023, 03/10/2022, 01/24/2022, Additional history exists Pap Smear Discontinued 03/26/2022, 03/06, 11/27/2015, Additional history exists Pneumococcal Vaccine: 50+ Years Completed 11/21/2022, 08/12/2006 VITAMIN D LEVEL ONCE IN A LIFETIME-USE SMARTSET# 95207 Completed 05/25/2024, 06/04/2023, 11/05/2022, Additional history exists [...] this encounter Medical Devices Implanted Type Area Lace Machine Operator Device Identifier Shelf Expiration Date Model / Serial / Lot Alloderm 6 X 16cm Implanted:Qty: 1 on 02/05/2007 at OR [facility] Right: Breast LIFE CELL MADDIE [id number] / [id number] / [id number] Description:Alloderm 6 x 16 cm to right breast [id number] - [id number] Implanted:Qty: 1 on 02/05/2007 at OR [facility] Left: Breast LIFE [employer] MADDIE [id number] / [id number] / [id number] Description:ALLODERM TO left breast 6 x 16cm Benedict Breast Implant Implanted:Qty: 1 on 02/05/2007 at OR [facility] Right: Breast MENTOR MADDIE 08/06/2010 [id number] / [id number] Description:700ml Breast Imp lant to Right Breast Benedict Breast Implant Implanted:Qty: 1 on 02/05/2007 at OR [facility] Left: Breast MENTOR MADDIE 08/06/2010 350-1697 / [id number] / [id number] Description:Benedict Breast Im plant to Left BreaST Graft Fascia Nevin 2x3 [id number] - [id number] Implanted:Qty: 1 on 03/20/2010 at OR [facility] Right: Eye [employer] 06/06/2014 [id number] / / [id number] Breast Implant 350-1697 Saline - [id number] Implanted:Qty: 1 on 04/20/2011 at OR [facility] Right: Breast MENTOR MADDIE 04/04/2015 350-1697 / [id number] / [id number] Description:Benedict smooth ro und moderate profile saline. Envelope Antibacteral Tyrx - [id number] Implanted:Qty: 1 on 05/14/2024 by Zulema Giordano IV, MD at [facility] [employer] : CRM [id number] 01/30/2025 [id number] / / [id number] Defib [place] Mri Quad Lending Advisor-D - [id number] Implanted:Qty: 1 on 05/14/2024 by Zulema Giordano IV, MD at [facility] [employer] [id number] 07/03/2025 [id number] / [id number] / [id number] S Ring Morcher Type 14a Mr-1410 - [id number] Implanted:Qty: 1 on 08/17/2024 by Frank Zuñiga MD at OR [facility] Right: Eye MORCHER [id number] 04/04/2026 MR-1410 / [id number] / [id number] Lens 17.5 [id number] - [id number] Implanted:Qty: 1 on 08/17/2024 by Frank Zuñiga MD at OR [facility] Right: Eye ANNABELLE : SURGICAL [id number] 03/15/2029 [id number] / [id number] / [id number] documented as of this encounter Visit Diagnoses Diagnosis Hospital discharge follow-up- Primary Other follow-up examination Hypertensive heart and kidney disease with chronic systolic congestive heart failure and stage 3b chronic kidney disease (HCC) Stage 3 chronic kidney disease, unspecified whether stage 3a or 3b CKD (HCC) Permanent atrial fibrillation (HCC) Atrial fibrillation Hypothyroidism, unspecified type Secondary renal hyperparathyroidism (HCC) Secondary hyperparathyroidism (of renal origin) Dyslipidemia, goal LDL below 100 Other and unspecified hyperlipidemia Chronic idiopathic constipation Unspecified constipation CAREN (generalized anxiety disorder) Generalized anxiety disorder documented in this encounter Advance Directives * [...] and were consensually agreed upon. Care Teams Floor Winder Relationship Specialty Start Date End Date Rose Marie Galloway MD [address] [place] [address] [place] [address] PCP - General Family Medicine 05/24/14 documented as of this encounter
--- OUTSIDE RECORDS SUMMARY | 2025-01-19 22:17 | External Medical Summary | Summary of Care ---
Author Name Unknown Organization [facility] Address [address] [place] [address] Phone [phone] Care Team Providers Care House Rn Name Role Phone Rose Marie Galloway MD Primary Care Provide r Reason for Visit * Reason Comments eRx-Medication Refill Encounter Details Date Type Department Care Team (Late st Contact Info) Description 12/02/2024 Refill Cardiology [address] [place] [phone] Graeme Pang PA-C [address] [place] [address] Systolic heart failure, chronic (HCC); Drug-induced cardiomyopathy (HCC); HTN, goal below 140/90 Allergies Active Allergy Reactions Criticality Noted Date Comments Docetaxel 02/14/2011 Chest pain, passed out , could not talk, saw silver round bubbles documented as of this encounter (statuses as of 12/03/2024) Medications OXYCODONE HCL 10 MG PO TABSIndications:pa [...] DAY 180 Tablet 3 05/17/20 24 Active Additional Information Patient taking differently: 50 mg Oral BID (.AM/PM), Informant: Patient, Reported on 11/30/2024 Rosuvastatin Calcium 20 MG Oral Tablet (Crestor)Indicatio [...] 24 Active Furosemide 40 MG Oral Tablet (Lasix)Indications :Hypokalemia,Heart failure, systolic, with acute decompensation (HCC) TAKE 1 TABLET EVERY OTHER DAY, OR DIRECTED 45 Tablet 1 11/08/19 25 Active Additional Information Patient not taking.Reported on 11/30/2024 Apixaban 5 MG Oral Tablet (Eliquis)Indicatio ns:Permanent atrial fibrillation (HCC) Take 1 Tablet by mouth in the morning and 1 Tablet before bedtime. 200 Tablet 3 12/01/2024 8:05 AM EST 11/24/19 25 Active Additional Information Patient taking differently: 2.5 mgOral BID (.AM/PM), Reported on 11/30/2024 Empagliflozin 10 MG Oral Tablet (Jardiance)Indicat ions:Systolic heart failure, chronic (HCC),Drug-induced cardiomyopathy (HCC),HTN, goal below 140/90 Take 1 Tablet by mouth in the morning. 100 Tablet 3 12/01/2024 8:05 AM EST 11/24/19 25 Active Escitalopram Oxalate 10 MG Oral Tablet (Lexapro) Take 0.5 Tablets by mouth in the morning. Active hydrOXYzine 5 MG OR TABS Take 1 Tablet by mouth 4 times a day as needed for Anxiety. Active documented as of this encounter (statuses as of 12/03/2024) Active Problems Problem Noted Date Diagnosed Date NICM (nonischemic cardiomyopathy) 04/19/2024 ICD (implantable cardioverter-defibrillator) in place 04/19/2024 Chronic kidney disease, stage 3b 11/18/2022 Overview: Per CKD protocol Osteoporosis, postmenopausal 11/05/2022 Permanent atrial fibrillation 11/05/2022 Peripheral vascular disease 10/23/2021 Hx of melanoma of skin 12/04/2020 Overview (12/04/2020): 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, [place] II, 11/2020) Hypertensive heart and kidne y [...] 08/23/2014 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 Avwxwip-Lsgra-Mnfii disease 12/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 long term care social worker current use of anticoagulant therapy 0 05/12/2006 Overview (07/07/2017): ICD-10 update of inactive term History of breast cancer 03/28/2006 Family history of other cardiovascular diseases 05/14/2005 Overview (12/28/2015): ICD-10 update of inactive term FAMILY HX-BREAST MALIG 05/14/2005 HTN, goal below 140/90 06/26/2001 Blindness of left eye documented as of this encounter (statuses as of 12/03/2024) Resolved Problems Problem Noted Date Diagnosed Date [...] as of this encounter (statuses as of 12/03/2024) Immunizations Name Administration Dates Next Due COVID-19 mRNA, LNP-s, No Pre serve, 2-Dose Series (Moderna) 02/12/2021,01/15/2021 Pneumococcal Conjugate Vacci ne, 20-valent ([id number]) 11/21/2022 Pneumococcal Polysaccharide PPV23 (Pneumovax) 08/12/2006 Seasonal [...] encounter Miscellaneous Notes * Telephone Encounter - Tatiana Delgado, [facility] - 12/03/2024 12:15 PM EST Refused Prescriptions: Disp Refills Jardiance 10 MG Oral Tablet (Empagliflozin)90 Tab*3 Sig: TAKE 1TABLET BY MOUTH EVERY DAY IN THE MORNINGRefused By: TATIANA DELGADO eason for Refusal: Other (comment below)Reason for Refusal Comment: sent to other pharmacy documented in this encounter Plan of Treatment Upcoming Encounters Date Type Department Care Team (Late st Contact Info) Description 12/07/2024 2:00 PM EST Office Visit Family Medicine [address] [place] [phone] Denise Garcia MD [address] [place] [address] [place] [phone] 12/21/2024 1:45 PM EDT Imaging Radiology [address] [place] [phone] 12/28/2024 11:00 AM EDT Nurse Only Ancillary [address] [place] [address] [place], Nurse [address] [place] [address] 12/28/2024 12:30 PM EDT Office Visit Cardiology [address] [place] [address] Graeme Pang PA-C [address] [place] [address] 04/22/2025 12:20 PM EDT Office Visit Dermatology [facility] [place] [address] [facility] [place] [address] Cindi Vo PA-C [address] [facility] [place] [address] 06/21/2025 1:40 PM EDT Office Visit Family Medicine [address] [place] [phone] Rose Marie Galloway MD [address] [place] [address] [place] [address] 10/21/2025 1:00 PM EST Office Visit Optgabriela, [place] [address] [place] [address] Raudel Hernandez, OD [address] [place] [address] Health Maintenance Due Date Last Done Comments [...] Additional history exists CKD PHOS USE SMARTSET 78697 05/25/2025 08, 12/24/2022, 12/05/2021, Additional history exists Cologuard 08/21/2025 08/21/2022, 05/2022, 08/13/2022, Additional history exists Colorectal Cancer Screening 08/21/2025 Depression Screening 10/20/2025 10/20/2024 CKD HGB USE SMARTSET 31742 11/23/202511/23, 11/23/2024, 05/14/2024, Additional history exists TSH [...] D LEVEL ONCE IN A LIFETIME-USE SMARTSET# 15783 Completed 05/25/2024, 06/04/2023, 11/05/2022, Additional history exists [...] this encounter Medical Devices Implanted Type Area Electrical Continuity Tester Device Identifier Shelf Expiration Date Model / Serial / Lot Alloderm 6 X 16cm Implanted:Qty: 1 on 02/05/2007 at [place] [facility] Right: Breast LIFE CELL MADDIE [id number] / [id number] / [id number] Description:Alloderm 6 x 16 cm to right breast [id number] - [id number] Implanted:Qty: 1 on 02/05/2007 at OR [facility] Left: Breast LIFE CELL MADDIE [id number] / [id number] / [id number] Description:ALLODERM TO left breast 6 x 16cm [place] Breast Implant Implanted:Qty: 1 on 02/05/2007 at OR [facility] Right: Breast MENTOR MADDIE 08/06/2010 350-1697 / [id number] / [id number] Description:700ml Breast Imp lant to Right Breast [place] Breast Implant Implanted:Qty: 1 on 02/05/2007 at OR [facility] Left: Breast MENTOR MADDIE 08/06/2010 350-1697 / [id number] / [id number] Description:[place] Breast Im plant to Left BreaST Graft Fascia Nevin 2x3 35801 - [id number] Implanted:Qty: 1 on 03/20/2010 at OR [facility] Right: Eye IOP INC 06/06/2014 51510 / / [id number] Breast Implant 350-1697 Saline - [id number] Implanted:Qty: 1 on 04/20/2011 at OR [facility] Right: Breast MENTOR MADDIE 04/04/2015 350-1697 / [id number] / [id number] Description:[place] smooth ro und moderate profile saline. Envelope Antibacteral Tyrx - [id number] Implanted:Qty: 1 on 05/14/2024 by Zulema Giordano IV, MD at [facility] [employer] : CRM [id number] 01/30/2025 [id number] / / [id number] Defib [place] Mri Quad Entry Level Project Engineer-D - [id number] Implanted:Qty: 1 on 05/14/2024 by Zulema Giordano IV, MD at [facility] [employer] [id number] 07/03/2025 [id number] / [id number] / [id number] S Ring Morcher Type 14a Mr-1410 - [id number] Implanted:Qty: 1 on 08/17/2024 by Frank Zuñiga MD at OR [facility] Right: Eye MORCHER [id number] 04/04/2026 MR-1410 / [id number] / [id number] Lens 17.5 [id number] - [id number] Implanted:Qty: 1 on 08/17/2024 by Frank Zuñiga MD at OR [facility] Right: Eye ANNABELLE : SURGICAL [id number] 03/15/2029 [id number] / [id number] / [id number] documented as of this encounter Visit Diagnoses Diagnosis Systolic heart failure, chronic (HCC) Chronic systolic [...] and were consensually agreed upon. Care Teams House Rn Relationship Specialty Start Date End Date Rose Marie Galloway MD [address] [place] [address] [place] [address] PCP - General Family Medicine 05/24/14 documented as of this encounter
--- OUTSIDE RECORDS SUMMARY | 2025-01-19 22:17 | External Medical Summary ---
Author Name Unknown Address Unknown Organization K01:[facility] [place] [address] [facility] [address] Laboratory Report Ordering Provider Test Date Status ROSENDA MILLER 12/07/2024 14:10:59 Final Observation Date Value Abnormality Reference (Units ) Status SYNC LEUKOCYTES IN BLOOD BY AUTOMATED COUNT 12/07/2024 14:10:59 6.84 4.00-10.80 (K/uL) Final Segs 12/07/2024 14:10:59 63.1 40.0-75.0 (%) Final Lymphs % 12/07/2024 14:10:59 28.2 18.0-42.0 (%) Final Monos 12/07/2024 14:10:59 6.9 1.0-11.0 (%) Final Eosinophils 12/07/2024 14:10:59 0.9 0.0-6.0 (%) Final Basos 12/07/2024 14:10:59 0.6 0.0-2.0 (%) Final Immature Granulocyte, Percent 12/07/2024 14:10:59 0.3 0.0-2.0 (%) Final Absolute Segs 12/07/2024 14:10:59 4.32 1.80-7.70 (K/uL) Final Lymphs, absolute 12/07/2024 14:10:59 1.93 1.00-4.80 (K/ul) Final Monos, Abs 12/07/2024 14:10:59 0.47 0.00-1.10 (K/uL) Final Eos, Abs 12/07/2024 14:10:59 0.06 0.00-0.70 (K/uL) Final Basos, Abs 12/07/2024 14:10:59 0.04 0.00-0.20 (K/uL) Final Immature Granulocytes, Number 12/07/2024 14:10:59 0.02 0.00-0.20 (K/uL) Final Performing Location [facility] - [facility] [place][note 2] [address]. [facility] [address]
--- OUTSIDE RECORDS SUMMARY | 2025-01-19 22:17 | External Medical Summary | Summary of Care ---
Author Name Unknown Organization [facility] Address [address] [place] [address] Phone [phone] Care Team Providers Care Sustainability Project Manager Name Role Phone Rose Marie Galloway MD Primary Care Provide r Reason for Visit * Reason Onset Date Comments Post-Op 09/23/2024 Encounter Details Date Type Department Care Team (Late st Contact Info) Description 09/23/2024 Telephone Access Center, [place] [address] [facility] *DO NOT REMOVE THIS DEPARTMENT* [place] [address] Services, Scheduling [address] [place] [address] Post-Op Allergies Active Allergy Reactions Criticality Noted Date Comments Docetaxel 02/14/2011 Chest pain, passed out , could not talk, saw silver round bubbles documented as of this encounter (statuses as of 12/24/2024) Medications OXYCODONE HCL 10 MG PO TABSIndications:pa [...] OTHER MEDICATION 90 Tablet 3 4 Active Rosuvastatin Calcium 20 [...] Overview (12/04/2020): 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, [place] II, 11/2020) Hypertensive heart and kidne y [...] cardiomyopathy 04/28/2012 CAREN (generalized anxiety disorder) 01/07/2012 Nzixxgx-Louqp-Muszw disease 12/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 [facility] current use of anticoagulant therapy 0 [...] (Moderna) 02/12/2021,01/15/2021 Pneumococcal Conjugate Vacci ne, 20-valent ([id number]) 11/21/2022 Pneumococcal Polysaccharide PPV23 (Pneumovax) 08/12/2006 Seasonal [...] encounter Miscellaneous Notes * Telephone Encounter - Elda Taylor OSA - 09/23/2024 7:15 AM EST Patients PO was clinic cancelled for today. Please call Carine back to reschedule. documented in this encounter Plan of Treatment Upcoming Encounters Date Type Department Care Team (Late st Contact Info) Description 12/28/2024 11:00 AM EDT Nurse Only Ancillary [address] [place] [address] [place], Nurse [address] [place] [address] 12/28/2024 12:30 PM EDT Office Visit Cardiology [address] [place] [address] Graeme Pang PA-C [address] [place] [address] 03/15/2025 1:20 PM EDT Office Visit Family Medicine [address] [place] [phone] Denise Garcia MD [address] [place] [address] [place] [phone] 04/22/2025 12:20 PM EDT Office Visit Dermatology [facility] [place] [address] [place] [address] Cindi Vo PA-C [address] [place] [address] 06/21/2025 1:40 PM EDT Office Visit Family Medicine [address] [place] [address] Rose Marie Galloway MD [address] [place] [address] [place] [address] 10/21/2025 1:00 PM EST Office Visit Optometry, [place] 16 [place] [address] Raudel Hernandez, OD 16 [place] [address] Health Maintenance Due Date Last Done Comments [...] Additional history exists CKD HGB USE SMARTSET 72503 12/07/202512/07, 12/07/2024, 11/23/2024, Additional history exists CKD PHOS USE SMARTSET 21242 12/07/2025 03/0 01/2025, 05/25/2024, 12/24/2022, Additional history exists Diabetes Screening 12/08/2027 12/07/2024, 0 11/23/2024, 09/20/2024, Additional history exists DTap/Tdap Vaccines (3 - Td or Tdap) 09/01/2028 09/01/2018, 03/14/2008 Lipid Panel 11/12/2028 11/12/2023, 12/05, 01/24/2022, Additional history exists Pap Smear Discontinued 03/26/2022, 03/06, 11/27/2015, Additional history exists Pneumococcal Vaccine: 50+ Years Completed 11/21/2022, 08/12/2006 VITAMIN D LEVEL ONCE IN A LIFETIME-USE SMARTSET# 79796 Completed 05/25/2024, 06/04/2023, 11/05/2022, Additional history exists [...] this encounter Medical Devices Implanted Type Area Flake Or Shred Roll Operator Device Identifier Shelf Expiration Date Model / Serial / Lot Alloderm 6 X 16cm Implanted:Qty: 1 on 02/05/2007 at OR [facility] Right: Breast LIFE CELL MADDIE [id number] / [id number] / [id number] Description:Alloderm 6 x 16 cm to right breast [id number] - [id number] Implanted:Qty: 1 on 02/05/2007 at OR [facility] Left: Breast LIFE CELL MADDIE [id number] / [id number] / [id number] Description:ALLODERM TO left breast 6 x 16cm [place] Breast Implant Implanted:Qty: 1 on 02/05/2007 at OR [facility] Right: Breast MENTOR MADDIE 08/06/2010 350-1697 / [id number] / [id number] Description:700ml Breast Imp lant to Right Breast [place] Breast Implant Implanted:Qty: 1 on 02/05/2007 at OR [facility] Left: Breast MENTOR MADDIE 08/06/2010 350-1697 / [id number] / [id number] Description:[place] Breast Im plant to Left BreaST Graft Fascia Nevin 2x3 41295 - [id number] Implanted:Qty: 1 on 03/20/2010 at OR [facility] Right: Eye IOP INC 06/06/2014 41441 / / [id number] Breast Implant 350-1697 Saline - [id number] Implanted:Qty: 1 on 04/20/2011 at OR [facility] Right: Breast MENTOR MADDIE 04/04/2015 350-1697 / [id number] / [id number] Description:[place] smooth ro und moderate profile saline. Envelope Antibacteral Tyrx - [id number] Implanted:Qty: 1 on 05/14/2024 by Zulema Giordano IV, MD at [facility] [employer] : CRM [id number] 01/30/2025 CMRM6 133 / / [id number] Defib [place] Mri [place] Marshal-D - [id number] Implanted:Qty: 1 on 05/14/2024 by Zulema Giordano IV, MD at [facility] [employer] [id number] 07/03/2025 [id number] / [id number] / [id number] S Ring Morcher Type 14a Mr-1410 - [id number] Implanted:Qty: 1 on 08/17/2024 by Frank Zuñiga MD at OR [facility] Right: Eye MORCHER [id number] 04/04/2026 MR-1410 / [id number] / [id number] Lens 17.5 [id number] - [id number] Implanted:Qty: 1 on 08/17/2024 by Frank Zuñiga MD at OR [facility] Right: Eye ANNABELLE : SURGICAL [id number] 03/15/2029 [id number] / [id number] / [id number] documented as of this encounter Advance [...] and were consensually agreed upon. Care Teams Sustainability Project Manager Relationship Specialty Start Date End Date Rose Marie Galloway MD [address] [place] [address] [place] [address] PCP - General Family Medicine 05/24/14 documented as of this encounter
--- OUTSIDE RECORDS SUMMARY | 2025-01-19 22:17 | External Medical Summary ---
Author Name Unknown Address Unknown Organization K01:[facility] - [address] [place] [address] Laboratory Report Ordering Provider Test Date Status SABRINA MILLERJudy SHAI 12/07/2024 14:10:59 Final Observation Date Value Abnormality Reference (Units ) Status Phosphate 12/07/2024 14:10:59 3.2 2.5-4.8 (m g/dL) Final Performing Location [facility] - [address] [place] [address]
--- OUTSIDE RECORDS SUMMARY | 2025-01-19 22:17 | External Medical Summary | Summary of Care ---
Author Name Unknown Organization [facility] Address [address] [place] [address] Phone [phone] Care Team Providers Care Composite Laminator Name Role Phone Rose Marie Galloway MD Primary Care Provide r Reason for Visit * Reason Onset Date Comments No Show 12/02/[address] [facility] No Show Auto mation Encounter Details Date Type Department Care Team (Late st Contact Info) Description 12/02/2024 Telephone Family [address] [phone] Marcela Damon [address] [place] [address] No Show ([facility] No Show Automation) Allergies Active Allergy Reactions Criticality Noted Date [...] Overview (12/04/2020): 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, [place] II, 11/2020) Hypertensive heart and kidne y [...] 08/23/2014 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 Vbilafb-Dknza-Tohge disease 12/24/2010 Systolic heart failure, chronic 08/03/2009 [...] (Moderna) 02/12/2021,01/15/2021 Pneumococcal Conjugate Vacci ne, 20-valent (Tjxxpwz48) 11/21/2022 Pneumococcal Polysaccharide PPV23 (Pneumovax) 08/12/2006 Seasonal [...] encounter Miscellaneous Notes * Telephone Encounter - Iah, No Show - 12/02/2024 8:20 PM EST Dear Kayce Dohetry, Looks like you missed an appointment with MARCELA DAMON on 11/30/2024 at 02:40 PM. If you haven't already rescheduled, you have a couple of options: Reschedule in MyChart [email or web address] Call us at [phone] Can't make a future appointment? Cancel and let someone else have your spot! It's easy to do via Strolby or by calling us. Thanks for trusting [facility] with your care. We hope to see you back in our office soon. Sincerely, MARCELA SIMMS NELSON documented in this encounter Plan of Treatment Upcoming Encounters Date Type Department Care Team (Late st Contact Info) Description 12/07/2024 2:00 PM EST Office Visit Family Medicine [address] [place] [phone] Denise Garcia MD [address] [place] [address] [place] [phone] 12/21/2024 1:45 PM EDT Imaging Radiology [address] [place] [phone] 12/28/2024 11:00 AM EDT Nurse Only Ancillary [address] [place] [address] [place], Nurse [address] [place] [address] 12/28/2024 12:30 PM EDT Office Visit Cardiology [address] [place] [address] Graeme Pang PA-C [address] [place] [address] 04/22/2025 12:20 PM EDT [facility] [place] [address] Cindi Vo PA-C [address] [place] [address] 06/21/2025 1:40 PM EDT Office Visit Family Medicine [address] [place] [phone] Rose Marie Galloway MD [address] [place] [address] [place] [address] 10/21/2025 1:00 PM EST Office Visit Optometry, [place] 16 [place] [address] Raudel Hernandez, OD 16 [place] [address] Health Maintenance Due Date Last Done Comments [...] Additional history exists CKD PHOS USE SMARTSET 76267 05/25/2025 08, 12/24/2022, 12/05/2021, Additional history exists Cologuard 08/21/2025 08/21/2022, 05/2022, 08/13/2022, Additional history exists Colorectal Cancer Screening 08/21/2025 Depression Screening 10/20/2025 10/20/2024 CKD HGB USE SMARTSET 92918 11/23/202511/23, 11/23/2024, 05/14/2024, Additional history exists TSH [...] D LEVEL ONCE IN A LIFETIME-USE SMARTSET# 78392 Completed 05/25/2024, 06/04/2023, 11/05/2022, Additional history exists [...] this encounter Medical Devices Implanted Type Area Aircraft Systems Technician Device Identifier Shelf Expiration Date Model / Serial / Lot Alloderm 6 X 16cm Implanted:Qty: 1 on 02/05/2007 at OR [facility] Right: Breast LIFE CELL MADDIE [id number] / [id number] / [id number] Description:Alloderm 6 x 16 cm to right breast [id number] - [id number] Implanted:Qty: 1 on 02/05/2007 at OR [facility] Left: Breast LIFE CELL MADDIE [id number] / [id number] / [id number] Description:ALLODERM TO left breast 6 x 16cm [place] Breast Implant Implanted:Qty: 1 on 02/05/2007 at OR [facility] Right: Breast MENTOR MADDIE 08/06/2010 350-1697 / [id number] / [id number] Description:700ml Breast Imp lant to Right Breast [place] Breast Implant Implanted:Qty: 1 on 02/05/2007 at OR [facility] Left: Breast MENTOR MADDIE 08/06/2010 350-1697 / [id number] / [id number] Description:[place] Breast Im plant to Left BreaST Graft Fascia Nevin 2x3 56179 - [id number] Implanted:Qty: 1 on 03/20/2010 at OR [facility] Right: Eye IOP INC 06/06/2014 09319 / / [id number] Breast Implant 350-1697 Saline - [id number] Implanted:Qty: 1 on 04/20/2011 at OR [facility] Right: Breast MENTOR MADDIE 04/04/2015 350-1697 / [id number] / [id number] Description:[place] smooth ro und moderate profile saline. Envelope Antibacteral Tyrx - [id number] Implanted:Qty: 1 on 05/14/2024 by Zulema Giordano IV, MD at [facility] [employer] : CRM [id number] 01/30/2025 CMRM6 133 / / [id number] Defib [place] Mri Quad Cashier Parking Lot-D - [id number] Implanted:Qty: 1 on 05/14/2024 by Zulema Giordano IV, MD at [facility] [employer] [id number] 07/03/2025 [id number] / [id number] S / [id number] S Ring Morcher Type 14a Mr-1410 - [id number] Implanted:Qty: 1 on 08/17/2024 by Frank Zuñiga MD at OR [facility] Right: Eye MORCHER [id number] 04/04/2026 MR-1410 / [id number] / [id number] Lens 17.5 [id number] - [id number] Implanted:Qty: 1 on 08/17/2024 by Frank Zuñiga MD at OR [facility] Right: Eye ANNABELLE : SURGICAL [id number] 03/15/2029 [id number] / [id number] / [id number] documented as of this encounter Advance [...] and were consensually agreed upon. Care Teams Composite Laminator Relationship Specialty Start Date End Date Rose Marie Galloway MD [address] [place] [address] [place] [address] PCP - General Family Medicine 05/24/14 documented as of this encounter
--- OUTSIDE RECORDS SUMMARY | 2025-01-19 22:17 | External Medical Summary | Summary of Care ---
Author Name Unknown Organization [facility] Address [address] [place] [address] Phone [phone] Care Team Providers Care Manager It Security Name Role Phone Rose Marie Galloway MD Primary Care Provide r Encounter Details Date Type Department Care Team (Late st Contact Info) Description 10/18/2024 1:45 PM EST Documentation Eyewear [address] [address] [place], Eyewear [address] [place] [id number] History of intraocular lens implant* Allergies Active Allergy Reactions Criticality Noted Date Comments Docetaxel 02/14/2011 Chest pain, passed out , could not talk, saw silver round bubbles documented as of this encounter (statuses as of 12/04/2024) Medications OXYCODONE HCL 10 MG PO TABSIndications:p [...] 024 2024 Discontinued(M edication List Clean Up) prednisoLONE Acetate 1 % Ophthalmic Suspension (Pred Forte) Instill 1 Drop into the right eye in the morning and 1 Drop at noon and 1 Drop in the evening and 1 Drop before bedtime. To begin after eye surgery. 10 mL 024 2024 Discontinued(M edication List Clean Up) documented as of this encounter (statuses as of 12/04/2024) Active Problems Problem Noted Date Diagnosed Date NICM (nonischemic cardiomyopathy) 04/19/2024 ICD (implantable cardioverter-defibrillator) in place 04/19/2024 Chronic kidney disease, stage 3b 11/18/2022 Overview: Per CKD protocol Osteoporosis, postmenopausal 11/05/2022 Permanent atrial fibrillation 11/05/2022 Peripheral vascular disease 10/23/2021 Hx of melanoma of skin 12/04/2020 Overview (12/04/2020): 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, [place] II, 11/2020) Hypertensive heart and kidne y [...] 08/23/2014 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 ocean transportation intermediary current use of anticoagulant therapy 0 05/12/2006 Overview (07/07/2017): ICD-10 update of inactive term History of breast cancer 03/28/2006 Family history of other cardiovascular diseases 05/14/2005 Overview (12/28/2015): ICD-10 update of inactive term FAMILY HX-BREAST MALIG 05/14/2005 HTN, goal below 140/90 06/26/2001 Blindness of left eye documented as of this encounter (statuses as of 12/04/2024) Resolved Problems Problem Noted Date Diagnosed Date [...] as of this encounter (statuses as of 12/04/2024) Immunizations Name Administration Dates Next Due COVID-19 mRNA, LNP-s, No Pre serve, 2-Dose Series (Moderna) 02/12/2021,01/15/2021 Pneumococcal Conjugate Vacci ne, 20-valent ([id number]) 11/21/2022 Pneumococcal Polysaccharide PPV23 (Pneumovax) 08/12/2006 Seasonal [...] 2:00 PM EST Office Visit Family Medicine [address] [place] [phone] Denise Garcia MD [address] [place] [address] [place] [phone] 12/21/2024 1:45 PM EDT Imaging Radiology [facility] [address] [facility] [address] [place] [phone] 12/28/2024 11:00 AM EDT Nurse Only Ancillary [address] [place] [address] [place], Nurse Annual [address] [place] [address] 12/28/2024 12:30 PM EDT Office Visit Cardiology [address] [place] [address] Graeme Pang PAAvaC [address] [place] [address] 04/22/2025 12:20 PM EDT Office Visit Dermatology [facility] [address] [place] [address] Cindi Vo PA-C [address] [place] [address] 06/21/2025 1:40 PM EDT Office Visit Family Medicine [address] [place] [address] Rose Marie Galloway MD [address] [place] [address] [place] [address] 10/21/2025 1:00 PM EST Office Visit Optometry, [place] [address] [place] [address] Raudel Hernandez, MEHNAZ [address] [place], [place] [phone] Health Maintenance Due Date Last Done Comments [...] Additional history exists CKD PHOS USE SMARTSET 69801 05/25/202505/07, 12/24/2022, 12/05/2021, Additional history exists Cologuard 08/21/2025 08/21/2022, 05/2022, 08/13/2022, Additional history exists Colorectal Cancer Screening 08/21/2025 Depression Screening 10/20/2025 10/20/2024 CKD HGB USE SMARTSET 37069 11/23/202511/23, 11/23/2024, 05/14/2024, Additional history exists TSH [...] D LEVEL ONCE IN A LIFETIME-USE SMARTSET# 45233 Completed 05/25/2024, 06/04/2023, 11/05/2022, Additional history exists [...] this encounter Medical Devices Implanted Type Area Network Consultant Device Identifier Shelf Expiration Date Model / Serial / Lot Alloderm 6 X 16cm Implanted:Qty: 1 on 02/05/[place] [facility] [place]: Breast LIFE CELL MADDIE [id number] / [id number] / [id number] Description:Alloderm 6 x 16 cm to right breast [id number] - [id number] Implanted:Qty: 1 on 02/05/2007 [place] [facility] [place] Left: Breast LIFE CELL MADDIE [id number] / [id number] / [id number] Description:ALLODERM TO left breast 6 x 16cm [place] Breast Implant Implanted:Qty: 1 on 02/05/2007 at [place] [facility] [place] Right: Breast MENTOR MADDIE 08/06/2010 350-1697 / [id number] / [id number] Description:700ml Breast Imp lant to Right Breast [place] Breast Implant Implanted:Qty: 1 on 02/05/2007 at [place] [facility] [place] Left: Breast MENTOR MADDIE 08/06/2010 350-1697 / [id number] / [id number] Description:[place] Breast Im plant to Left BreaST Graft Fascia Nevin 2x3 21050 - [id number] Implanted:Qty: 1 on 03/20/2010 at OR [facility] Right: Eye [employer] 06/06/2014 [id number] / / [id number] Breast Implant 350-1697 Saline - [id number] Implanted:Qty: 1 on 04/20/2011 at [place] [facility] [place] Right: Breast MENTOR MADDIE 04/04/2015 350-1697 / [id number] / [id number] Description:[place] smooth ro und moderate profile saline. Envelope Antibacteral Tyrx - [id number] Implanted:Qty: 1 on 05/14/2024 by Zulema Giordano IV, MD at [facility] [employer] : CRM [id number] 01/30/2025 [id number] / / [id number] Defib [place] Mri Quad Voice Instructor-D - [id number] Implanted:Qty: 1 on 05/14/2024 by Zulema Giordano IV, MD at [facility] [employer] [id number] 07/03/2025 [id number] / [id number] / [id number] S Ring Morcher Type 14a Mr-1410 - [id number] Implanted:Qty: 1 on 08/17/2024 by Frank Zuñiga MD at OR [facility] Right: Eye MORCHER [id number] 04/04/2026 MR-1410 / [id number] / [id number] Lens 17.5 [id number] - [id number] Implanted:Qty: 1 on 08/17/2024 by Frank Zuñiga MD at OR [facility] Right: Eye ANNABELLE : SURGICAL [id number] 03/15/2029 [id number] / [id number] / [id number] documented as of this encounter Visit [...] and were consensually agreed upon. Care Teams Manager It Security Relationship Specialty Start Date End Date Rose Marie Galloway MD [address] [place] [address] [place] [phone] PCP - General Family Medicine 05/24/14 documented as of this encounter
--- OUTSIDE RECORDS SUMMARY | 2025-01-19 22:17 | External Medical Summary ---
Author Name Unknown Address Unknown Organization K01:LABORATORY [facility] - [address] [place] [address] Laboratory Report Ordering Provider Test Date Status ANN PAIZ 12/07/2024 14:10:59 Final Observation Date Value Abnormality Reference (Units ) Status MYCODE SPECIMEN-SST 12/07/2024 14:10:59 Freezing of extracted DNA, whole blood and/or serum. Final Performing Location LAB[facility]ORY [facility] - [address] [place] [address]
--- OUTSIDE RECORDS SUMMARY | 2025-01-19 22:17 | External Medical Summary ---
Author Name Unknown Address Unknown Organization K01:[facility]ORY [facility] [place] - [address] [place] [address] Laboratory Report Ordering Provider Test Date Status ANN PAIZ 12/07/2024 14:10:59 Final Observation Date Value Abnormality Reference (Units ) Status MYCODE SPECIMEN-SST 12/07/2024 14:10:59 Freezing of extracted DNA, whole blood and/or serum. Final Performing Location LABOR[facility]ORY [facility] [place] - [address] [place] [address]
--- OUTSIDE RECORDS SUMMARY | 2025-01-19 22:17 | External Medical Summary | Summary of Care ---
Author Name Unknown Organization [facility] Address [address] [place] [address] Phone [phone] Care Team Providers Care Ice Scraper Name Role Phone Rose Marie Galloway MD Primary Care Provide r Encounter Details Date Type Department Care Team (Late st Contact Info) Description 12/13/2024 Orders Only Outcomes Research Department [address] [place] [address] Carine Vasques CHRA [employer] Research Other*[id number] Allergies Active Allergy Reactions Criticality Noted Date Comments Docetaxel 02/14/2011 Chest pain, passed out , could not talk, saw silver round bubbles documented as of this encounter (statuses as of 12/13/2024) Medications OXYCODONE HCL 10 MG PO TABSIndications:pa [...] DIRECTED 45 Tablet 1 11/08/19 25 Active Apixaban 5 MG Oral Tablet (Eliquis)Indicatio ns:Permanent atrial fibrillation (HCC) Take 1 Tablet by mouth in the morning and 1 Tablet before bedtime. 200 Tablet 3 12/01/2024 8:05 AM EST 11/24/19 25 Active Additional Information Patient taking differently: 2.5 mgOral BID (.AM/PM), Reported on 12/07/2024 Empagliflozin 10 MG Oral Tablet (Jardiance)Indicat ions:Systolic heart failure, chronic (HCC),Drug-induced cardiomyopathy (HCC),HTN, goal below 140/90 Take 1 Tablet by mouth in the morning. 100 Tablet 3 12/01/2024 8:05 AM EST 11/24/19 25 Active hydrOXYzine 5 MG OR TABS Take 1 Tablet by mouth 4 times a day as needed for Anxiety. Active Metoprolol Succinate ER 50 MG Oral Tablet Extended Release 24 Hour (toPROL XL) Take 1 Tablet by mouth in the morning and 1 Tablet before bedtime. 11/28/19 25 Active Escitalopram Oxalate 10 MG Oral Tablet (Lexapro) Take 0.5 Tablets by mouth in the morning. 11/28/19 25 Active Sennosides-Docusat e Sodium 8.6-50 MG Oral Tablet (Senna S) Take 1 Tablet by mouth in the morning. 30 Tablet 1 12/08/19 25 Active documented as of this encounter (statuses as of 12/13/2024) Active Problems Problem Noted Date Diagnosed Date Stage 3 chronic kidney disease 12/07/2024 Hypothyroidism 12/07/2024 Chronic idiopathic constipation 12/07/2024 NICM (nonischemic cardiomyopathy) 04/19/2024 ICD (implantable cardioverter-defibrillator) in place 04/19/2024 Chronic kidney disease, stage 3b 11/18/2022 Overview: Per CKD protocol Osteoporosis, postmenopausal 11/05/2022 Permanent atrial fibrillation 11/05/2022 Peripheral vascular disease 10/23/2021 Hx of melanoma of skin 12/04/2020 Overview (12/04/2020): 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, [place] II, 11/2020) Hypertensive heart and kidne y [...] cardiomyopathy 04/28/2012 CAREN (generalized anxiety disorder) 01/07/2012 Wfueapn-Hbolh-Igexs disease 12/24/2010 Systolic heart failure, chronic 08/03/2009 [...] as of this encounter (statuses as of 12/13/2024) Resolved Problems Problem Noted Date Diagnosed Date [...] 0 ACTIVE CASE MANAGEMENT Geetha Lester RN [phone] 12/13/19 09 07/23/2010 Other chest pain [...] as of this encounter (statuses as of 12/13/2024) Immunizations Name Administration Dates Next Due COVID-19 mRNA, LNP-s, No Pre serve, 2-Dose Series (Moderna) 02/12/2021,01/15/2021 Pneumococcal Conjugate Vacci ne, 20-valent ([id number]) 11/21/2022 Pneumococcal Polysaccharide PPV23 (Pneumovax) 08/12/2006 Seasonal [...] Description 12/21/2024 1:45 PM EDT Imaging Radiology [address] [place] [phone] 12/28/2024 11:00 AM EDT Nurse Only Ancillary [address] [place] [address] [place], Nurse Annual [address] [place] [address] 12/28/2024 12:30 PM EDT Office Visit Cardiology [address] [place] [address] Graeme Pang PA-C [address] [facility] [place] [address] 03/15/2025 1:20 PM EDT Office Visit [address] [phone] Denise Garcia MD [address] [place] [address] [place] [phone] 04/22/2025 12:20 PM EDT Office Visit [facility] [place] [address] Cindi Vo PA-C [address] [place] [address] 06/21/2025 1:40 PM EDT Office Visit [address] [phone] Rose Marie Galloway MD [address] [place] [address] [place] [address] 10/21/2025 1:00 PM EST Office Visit Optometry, [place] [address] [place] [address] Raudel Hernandez, MEHNAZ [address] [place], [place] [phone] Scheduled Orders Name Type Priority Associated Diagnoses Orde r Schedule MYCODE SUBSEQUENT ADULT Lab Routine MyCode Research Other*[id number] Every 6 Months for 2 Occurrences starting 12/13/2024 until 01/02/2026 Health Maintenance Due Date Last Done Comments [...] Depression Screening 10/20/2025 10/20/2024 TSH 11/23/2025 11/23/2024, 05/07, 11/12/2023, Additional history exists CKD HGB USE SMARTSET 40045 12/07/202512/07, 12/07/2024, 11/23/2024, Additional history exists CKD PHOS USE SMARTSET 98848 12/07/2025 03/0 01/2025, 05/25/2024, 12/24/2022, Additional history exists Diabetes Screening 12/08/2027 12/07/2024, 0 11/23/2024, 09/20/2024, Additional history exists DTap/Tdap Vaccines (3 - Td or Tdap) 09/01/2028 09/01/2018, 03/14/2008 Lipid Panel 11/12/2028 11/12/2023, 12/05, 01/24/2022, Additional history exists Pap Smear Discontinued 03/26/2022, 03/06, 11/27/2015, Additional history exists Pneumococcal Vaccine: 50+ Years Completed 11/21/2022, 08/12/2006 VITAMIN D LEVEL ONCE IN A LIFETIME-USE SMARTSET# 78132 Completed 05/25/2024, 06/04/2023, 11/05/2022, Additional history exists [...] this encounter Medical Devices Implanted Type Area Ending Machine Operator Device Identifier Shelf Expiration Date Model / Serial / Lot Alloderm 6 X 16cm [place]ed:Q[place] 1 [place] [facility] [place] LIFE CELL MADDIE [id number] / [id number] / [id number] Description:Alloderm 6 x 16 cm to right breast [id number] - [id number] Implanted:Qty: 1 on 02/05/2007 [place] [facility] [place] Breast LIFE CELL MADDIE [id number] / [id number] / [id number] Description:ALLODERM TO left breast 6 x 16cm [place] Breast Implant Implanted:Qty: 1 on 02/05/2007 [place] [facility] [place] Breast MENTOR MADDIE 08/06/2010 350-1697 / [id number] / [id number] Description:700ml Breast Imp lant to Right Breast [place] Breast Implant Implanted:Qty: 1 on 02/05/2007 [place] [facility] [place]: Breast MENTOR MADDIE 08/06/2010 350-1697 / [id number] / [id number] Description:[place] Breast Im plant to Left BreaST Graft Fascia Nevin 2x3 46933 - [id number] Implanted:Qty: 1 on 03/20/2010 at OR [facility] Right: Eye IOP INC 06/06/2014 08961 / / [id number] Breast Implant 350-1697 Saline - [id number] Implanted:Qty: 1 on 04/20/2011 [place] [facility] [place]: Breast MENTOR MADDIE 04/04/2015 350-1697 / [id number] / [id number] Description:[place] smooth ro und moderate profile saline. Envelope Antibacteral Tyrx - [id number] Implanted:Qty: 1 on 05/14/2024 by Zulema Giordano IV, [place] [facility] [employer] : CRM [id number] 01/30/2025 CMRM6 133 / / [id number] Defib [place] Mri Quad Printing Gray Cloth Tender-D - [id number] Implanted:Qty: 1 on 05/14/2024 by Zulema Giordano IV, MD at [facility] [employer] [id number] 07/03/2025 [id number] / [id number] / [id number] S Ring Morcher Type 14a Mr-1410 - [id number] Implanted:Qty: 1 on 08/17/2024 by Frank Zuñiga MD at OR [facility] Right: Eye MORCHER [id number] 04/04/2026 MR-1410 / [id number] / [id number] Lens 17.5 [id number] - [id number] Implanted:Qty: 1 on 08/17/2024 by Frank Zuñiga MD at OR [facility] Right: Eye ANNABELLE : SURGICAL [id number] 03/15/2029 [id number] / [id number] / [id number] documented as of this encounter Visit Diagnoses Diagnosis MyCode Research Other*[id number] documented in this encounter Advance Directives * [...] and were consensually agreed upon. Care Teams Ice Scraper Relationship Specialty Start Date End Date Rose Marie Galloway MD [address] [place] [address] [place] [phone] PCP - General Family Medicine 05/24/14 documented as of this encounter
--- OUTSIDE RECORDS SUMMARY | 2025-01-19 22:17 | External Medical Summary ---
Author Name Unknown Address Unknown Organization K01:LABORATORY [facility] [place] - [address] [facility] [address] Laboratory Report Ordering Provider Test Date Status ROSENDA MILLER 12/07/2024 14:10:59 Final Observation Date Value Abnormality Reference (Units ) Status BUN 12/07/2024 14:10:59 18 6-20 (mg/dL) Final Creatinine 12/07/2024 14:10:59 1.3 Above high normal 0.5-1.0 (mg/dL) Final Glomerular filtration rate/1.73 sq M.predicted [Volume Rate/Area] in Serum, Plasma or Blood by Creatinine-based formula (CKD-EPI) 12/07/2024 14:10:59 44 Below low normal >=60 (mL/min) Final eGFR is calculated based on the CKD-EPI 2020 equation. Sodium 12/07/2024 14:10:59 138 135-146 (m mol/L) Final Potassium 12/07/2024 14:10:59 4.5 3.5-5.1 (m mol/L) Final Cl 12/07/2024 14:10:59 104 98-107 (mm ol/L) Final CO2 12/07/2024 14:10:59 20 Below low normal 22- 32 (mmol/L) Final Anion gap 12/07/2024 14:10:59 14 7-15 (mmol /L) Final Glucose 12/07/2024 14:10:59 95 70-120 (mg /dL) Final Albumin 12/07/2024 14:10:59 3.8 3.8-5.0 (g /dL) Final AST (Aspartate aminotransferase) 12/07/2024 14:10:59 31 10-35 (U/L) Fin al Alk Phos 12/07/2024 14:10:59 83 35-130 (U/ L) Final Bilirubin, Total 12/07/2024 14:10:59 1.2 <=1 .2 (mg/dL) Final Calcium 12/07/2024 14:10:59 9.8 8.4-10.2 ( mg/dL) Final Protein 12/07/2024 14:10:59 6.3 6.0-8.3 (g /dL) Final ALT (Alanine aminotransferase) 12/07/2024 14:10:59 40 Above high normal 10-35 (U/L) Final Performing Location LABORATORY [facility] - [address] [facility] [address]
--- OUTSIDE RECORDS SUMMARY | 2025-01-19 22:17 | External Medical Summary ---
Author Name Unknown Address Unknown Organization K01:LABORATORY [facility] [place] - [address] [place] [address] Laboratory Report Ordering Provider Test Date Status PAULSALRAFA GIBBONS 12/07/2024 14:10:59 Final Observation Date Value Abnormality Reference (Units ) Status Parathyrin.intact [Mass/volume] in Serum or Plasma 12/07/2024 14:10:59 99 Above high normal 15-65 (pg/mL) Final Performing Location LABORATORY [facility] - [address] [place] [address]
--- OUTSIDE RECORDS SUMMARY | 2025-01-19 22:17 | External Medical Summary | Summary of Care ---
Author Name Unknown Organization [facility] Address [address] [place] [address] Phone [phone] Care Team Providers Care Civil Engineering Specialist Name Role Phone Rose Marie Galloway MD Primary Care Provide r Reason for Visit * Reason Comments Outpatient Testing Encounter Details Date Type Department Care Team (Latest Contact Info) Description 12/07/2024 2:40 PM EST Laboratory Laboratory [address] [place] [phone] [place] [address] [employer] Other*[id number]; Stage 3 chronic kidney disease, unspecified whether stage 3a or 3b CKD (HCC); Permanent atrial fibrillation (HCC); Secondary renal hyperparathyroidism (HCC); Hypertensive heart and kidney disease with chronic systolic congestive heart failure and stage 3b chronic kidney disease (HCC) Allergies Active Allergy Reactions Criticality Noted Date Comments Docetaxel 02/14/2011 Chest pain, passed out , could not talk, saw silver round bubbles documented as of this encounter (statuses as of 12/07/2024) Medications OXYCODONE HCL 10 MG PO TABSIndications:pa in as needed Take by mouth every 8 hours as needed . Active Vitamin D3 50 MCG (1999 UT) Oral Capsule Take 1 Capsule by mouth in the morning. 30 Capsule 5 02/16/20 23 Active Levothyroxine Sodium 75 MCG Oral [...] Overview (12/04/2020): 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, [place] II, 11/2020) Hypertensive heart and kidne [...] cardiomyopathy 04/28/2012 CAREN (generalized anxiety disorder) 01/07/2012 [place]-Jncgj-Nlcge disease 12/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 drawing supervisor current use of anticoagulant therapy 0 [...] ACTIVE CASE MANAGEMENT Geetha Lester RN [phone] 12/13/19 09 07/23/2010 Other chest pain 04/20/2008 [...] (Moderna) 02/12/2021,01/15/2021 Pneumococcal Conjugate Vacci ne, 20-valent ([id number]) 11/21/2022 Pneumococcal Polysaccharide PPV23 (Pneumovax) 08/12/2006 Seasonal [...] No 10/20/2024 Does the household have a [facility] health medical cent[facility] source of income? (Household - [...] Description 12/21/2024 1:45 PM EDT Imaging Radiology [address] [place] [phone] 12/28/2024 11:00 AM EDT Nurse Only Ancillary [address] [place] [address] [place], Nurse Annual [address] [place] [address] 12/28/2024 12:30 PM EDT Office Visit Cardiology [address] [place] [address] Graeme Pang PA-C [address] [place] [address] 03/15/2025 1:20 PM EDT Office Visit Family Medicine [address] [place] [phone] Denise Garcia MD [address] [place] [address] [place] [phone] 04/22/2025 12:20 PM EDT Office Visit Dermatology [facility] [address] [facility] [place] [address] Cindi Vo PA-C [address] [facility] [place] [address] 06/21/2025 1:40 PM EDT Office Visit Family Medicine [address] [phone] Rose Marie Galloway MD [address] [place] [address] [place] [address] 10/21/2025 1:00 PM EST Office Visit Optometry, [place] [address] [place], [place] [phone] Raudel Hernandez OD [address] [place] [address] Pending Results Name Type Priority Associated Diagnoses Date /Time MYCODE SUBSEQUENT ADULT Lab Routine MyCode [employer] Other*[id number] 12/07/2024 2:10 PM EST MAGNESIUM Lab Routine Stage 3 chronic kidney [...] renal hyperparathyroidism (HCC) 12/07/2024 2:10 PM EST MYCODE SST1 Lab Routine [employer] Other*[id number] 12/07/2024 2:10 PM EST MYCODE SST2 Lab Routine [employer] Other*[id number] 12/07/2024 2:10 PM EST CBC Lab Routine Permanent atrial fibrillation (HCC) Stage 3 chronic kidney disease, unspecified whether stage 3a or 3b CKD (HCC) Secondary renal hyperparathyroidism (HCC) 12/07/2024 2:10 PM EST DIFFERENTIAL, AUTOMATED Lab Routine Permanent atrial fibrillation (HCC) Stage 3 chronic kidney disease, unspecified whether stage 3a or 3b CKD (HCC) Secondary renal hyperparathyroidism (HCC) 12/07/2024 2:10 PM EST Health Maintenance Due Date Last [...] Additional history exists CKD PHOS USE SMARTSET 78688 05/25/202505/07, 12/24/2022, 12/05/2021, Additional history exists Cologuard 08/21/2025 08/21/2022, 1105/2022, 08/13/2022, Additional history exists Colorectal Cancer Screening 08/21/2025 Depression Screening 10/20/2025 10/20/2024 CKD HGB USE SMARTSET 47744 11/23/202511/23, 11/23/2024, 05/14/2024, Additional history exists TSH [...] D LEVEL ONCE IN A LIFETIME-USE SMARTSET# 16886 Completed 05/25/2024, 06/04/2023, 11/05/2022, Additional history exists [...] this encounter Medical Devices Implanted Type Area Floor Coverer Apprentice Device Identifier Shelf Expiration Date Model / Serial / Lot Alloderm 6 X 16cm Implanted:Qty: 1 on 02/05/2007 at OR [facility] [place] Right: Breast LIFE CELL MADDIE [id number] / [id number] / [id number] Description:Alloderm 6 x 16 cm to right breast [id number] - [id number] Implanted:Qty: 1 on 02/05/2007 at OR [facility] [place] Left: Breast LIFE CELL MADDIE [id number] / [id number] / [id number] Description:ALLODERM TO left breast 6 x 16cm [place] Breast Implant Implanted:Qty: 1 on 02/05/2007 at OR [facility] [place] Right: Breast MENTOR MADDIE 08/06/2010 350-1697 / [id number] / [id number] Description:700ml Breast Imp lant to Right Breast [place] Breast Implant Implanted:Qty: 1 on 02/05/2007 at OR [facility] [place] Left: Breast MENTOR MADDIE 08/06/2010 350-1697 / [id number] / [id number] Description:[place] Breast Im plant to Left BreaST Graft Fascia Nevin 2x3 [id number] - [id number] Implanted:Qty: 1 on 03/20/2010 at OR [facility] Right: Eye [employer] 06/06/2014 [id number] / / [id number] Breast Implant 350-1697 Saline - [id number] Implanted:Qty: 1 on 04/20/2011 at OR [facility] [place] Right: Breast MENTOR MADDIE 04/04/2015 350-1697 / [id number] / [id number] Description:[place] smooth ro und moderate profile saline. Envelope Antibacteral Tyrx - [id number] Implanted:Qty: 1 on 05/14/2024 by Zulema Giordano IV, MD at [facility] [place] [employer] : CRM [id number] 01/30/2025 [id number] / / [id number] Defib [place] Mri Quad Sales Support Associate-D - [id number] Implanted:Qty: 1 on 05/14/2024 by Zulema Giordano IV, MD at [facility] [place] [employer] [id number] 07/03/2025 [id number] / [id number] / [id number] S Ring Morcher Type 14a Mr-1410 - [id number] Implanted:Qty: 1 on 08/17/2024 by Frank Zuñiga MD at OR [facility] Right: Eye MORCHER [id number] 04/04/2026 MR-1410 / [id number] / [id number] Lens 17.5 [id number] - [id number] Implanted:Qty: 1 on 08/17/2024 by Frank Zuñiga MD at OR [facility] Right: Eye ANNABELLE : SURGICAL [id number] 03/15/2029 [id number] / [id number] / [id number] documented as of this encounter Visit Diagnoses Diagnosis [employer] Other*[id number] Stage 3 chronic kidney disease, unspecified whether stage 3a or 3b CKD (HCC) Permanent atrial fibrillation (HCC) Atrial fibrillation Secondary renal hyperparathyroidism (HCC) Secondary hyperparathyroidism (of renal origin) Hypertensive heart and kidney disease with chronic systolic congestive heart failure and stage 3b chronic kidney disease (HCC) documented in this encounter Advance Directives * [...] and were consensually agreed upon. Care Teams Civil Engineering Specialist Relationship Specialty Start Date End Date Rose Marie Galloway MD [address] [place] [address] [place] [address] PCP - General Family Medicine 05/24/14 documented as of this encounter
--- OUTSIDE RECORDS SUMMARY | 2025-01-19 22:17 | External Medical Summary | Summary of Care ---
Author Name Unknown Organization [facility] Address [address] [place] [address] Phone [phone] Care Team Providers Care Ostomy Care Nurse Name Role Phone Rose Marie Galloway MD Primary Care Provide r Reason for Visit * Reason Onset Date Comments Advice 12/09/2024 Encounter Details Date Type Department Care Team ([facility] st Contact Info) Description 12/09/2024 Telephone Family Medicine [address] [phone] Rose Marie Galloway MD [address] [place] [address] [place] [address] Advice Allergies Active Allergy Reactions Criticality Noted Date Comments Docetaxel 02/14/2011 Chest pain, passed out , could not talk, saw silver round bubbles documented as of this encounter (statuses as of 12/10/2024) Medications OXYCODONE HCL 10 MG PO TABSIndications:pa [...] as of this encounter (statuses as of 12/10/2024) Active Problems Problem Noted Date Diagnosed Date Stage 3 chronic kidney disease 12/07/2024 Hypothyroidism 12/07/2024 Chronic idiopathic constipation 12/07/2024 NICM (nonischemic cardiomyopathy) 04/19/2024 ICD (implantable cardioverter-defibrillator) in place 04/19/2024 Chronic kidney disease, stage 3b 11/18/2022 Overview: Per CKD protocol Osteoporosis, postmenopausal 11/05/2022 Permanent atrial fibrillation 11/05/2022 Peripheral vascular disease 10/23/2021 Hx of melanoma of skin 12/04/2020 Overview (12/04/2020): 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, [place] II, 11/2020) Hypertensive heart and kidne y [...] cardiomyopathy 04/28/2012 CAREN (generalized anxiety disorder) 01/07/2012 Uwjifgi-Ymgjf-Teqfu disease 12/24/2010 Systolic heart failure, chronic 08/03/2009 [...] as of this encounter (statuses as of 12/10/2024) Resolved Problems Problem Noted Date Diagnosed Date [...] as of this encounter (statuses as of 12/10/2024) Immunizations Name Administration Dates Next Due COVID-19 mRNA, LNP-s, No Pre serve, 2-Dose Series (Moderna) 02/12/2021,01/15/2021 Pneumococcal Conjugate Vacci ne, 20-valent (Jyxjara48) 11/21/2022 Pneumococcal Polysaccharide PPV23 (Pneumovax) 08/12/2006 Seasonal [...] encounter Miscellaneous Notes * Telephone Encounter - Rose Marie Galloway MD - 12/09/2024 3:02 PM EST Appears she was to restart the Lasix on 12/06/24. Her CMP shows improved kidney function and normal potassium so OK to restart at her previous dose of 40 mg every other day. The Senna was received by the pharmacy 12/07/24 at 1:55 PM so it should be there. It is OTC so that may be the problem. * Telephone Encounter - Kayleen Guerra RN - 12/09/2024 2:50 PM EST [place]. Received incoming call from patient regarding her lab work and if she is able to re-start her lasix. She also states that [facility] never received the order for senna. She was wondering if that could be sent in as well. Please advice if patient should re-start lasix. Thank you! documented in this encounter Plan of Treatment Upcoming Encounters Date Type Department Care Team (Late st Contact Info) Description 12/21/2024 1:45 PM EDT Imaging Radiology [address] [place] [phone] 12/28/2024 11:00 AM EDT Nurse Only Ancillary [address] [place] [address] [place], Nurse Annual Wellness [address] [place] [address] [place] [address] 12/28/2024 12:30 PM EDT Office Visit Cardiology [address] [place] [address] Graeme Pang PA-C [address] [place] [address] 03/15/2025 1:20 PM EDT Office Visit Family Medicine [address] [place] [phone] Denise Garcia MD [address] [place] [address] [place] [phone] 04/22/2025 12:20 PM EDT Office Visit Dermatology [address] [place] [address] Cindi Vo PA-C [address] [place] [address] 06/21/2025 1:40 PM EDT Office Visit Family Medicine [address] [place] [phone] Rose Marie Galloway MD [address] [place] [address] [place] [address] 10/21/2025 1:00 PM EST Office Visit Optometry, [address] [address] Raudel Hernandez, MEHNAZ [address] [place] [address] Health Maintenance Due Date Last Done Comments [...] Additional history exists CKD HGB USE SMARTSET 86975 12/07/202512/07, 12/07/2024, 11/23/2024, Additional history exists CKD PHOS USE SMARTSET 04962 12/07/2025 03/0 01/2025, 05/25/2024, 12/24/2022, Additional history exists Diabetes Screening 12/08/2027 12/07/2024, 0 11/23/2024, 09/20/2024, Additional history exists DTap/Tdap Vaccines (3 - Td or Tdap) 09/01/2028 09/01/2018, 03/14/2008 Lipid Panel 11/12/2028 11/12/2023, 12/05, 01/24/2022, Additional history exists Pap Smear Discontinued 03/26/2022, 03/06, 11/27/2015, Additional history exists Pneumococcal Vaccine: 50+ Years Completed 11/21/2022, 08/12/2006 VITAMIN D LEVEL ONCE IN A LIFETIME-USE SMARTSET# 32817 Completed 05/25/2024, 06/04/2023, 11/05/2022, Additional history exists [...] this encounter Medical Devices Implanted Type Area Sharepoint Solutions Developer Device Identifier Shelf Expiration Date Model / Serial / Lot Alloderm 6 X 16cm Implanted:Qty: 1 on 02/05/2007 at OR [facility] [place] Right: Breast LIFE CELL MADDIE [id number] / [id number] / [id number] Description:Alloderm 6 x 16 cm to right breast [id number] - [id number] Implanted:Qty: 1 on 02/05/2007 at OR [facility] [place] Left: Breast LIFE CELL MADDIE [id number] / [id number] / [id number] Description:ALLODERM TO left breast 6 x 16cm [place] Breast Implant Implanted:Qty: 1 on 02/05/2007 at OR [facility] [place] Right: Breast MENTOR MADDIE 08/06/2010 350-1697 / [id number] / [id number] Description:700ml Breast Imp lant to Right Breast [place] Breast Implant Implanted:Qty: 1 on 02/05/2007 at OR [facility] [place] Left: Breast MENTOR MADDIE 08/06/2010 350-1697 / [id number] / [id number] Description:[place] Breast Im plant to Left BreaST Graft Fascia Nevin 2x3 13254 - [id number] Implanted:Qty: 1 on 03/20/2010 at OR [facility] Right: Eye [employer] 06/06/2014 82011 / / [id number] Breast Implant 350-1697 Saline - [id number] Implanted:Qty: 1 on 04/20/2011 at OR [facility] [place] Right: Breast MENTOR MADDIE 04/04/2015 350-1697 / [id number] / [id number] Description:[place] smooth ro und moderate profile saline. Envelope Antibacteral Tyrx - [id number] Implanted:Qty: 1 on 05/14/2024 by Zulema Giordano IV, MD at [facility]ARDI[facility] LABS [facility] [place] [employer] : CRM [id number] 01/30/2025 CMRM6 133 / / [id number] Defib [place] Mri Quad Leveler Helper-D - [id number] Implanted:Qty: 1 on 05/14/2024 by Zulema Giordano IV, MD at [facility] [employer] [id number] 07/03/2025 [id number] / [id number] / [id number] Ring Morcher Type 14a Mr-1410 - [id number] Implanted:Qty: 1 on 08/17/2024 by Frank Zuñiga MD at OR [facility] Right: Eye MORCHER [id number] 04/04/2026 MR-1410 / [id number] / [id number] Lens 17.5 [id number] - [id number] Implanted:Qty: 1 on 08/17/2024 by Frank Zuñiga MD at OR [facility] Right: Eye ANNABELLE : SURGICAL [id number] 03/15/2029 [id number] / [id number] / [id number] documented as of this encounter Advance [...] and were consensually agreed upon. Care Teams Ostomy Care Nurse Relationship Specialty Start Date End Date Rose Marie Galloway MD [address] [place] [address] [place] [address] PCP - General Family Medicine 05/24/14 documented as of this encounter
--- OUTSIDE RECORDS SUMMARY | 2025-01-19 22:17 | External Medical Summary ---
Author Name Unknown Address Unknown Organization K01:[facility] - [address] [place] [address] Laboratory Report Ordering Provider Test Date Status SABRINA MILLERJudy SHAI 12/07/2024 14:10:59 Final Observation Date Value Abnormality Reference (Units ) Status Magnesium 12/07/2024 14:10:59 2.2 1.5-2.6 (m g/dL) Final Performing Location [facility] - [address] [place] [address]
--- OUTSIDE RECORDS SUMMARY | 2025-01-19 22:17 | External Medical Summary ---
Author Name Unknown Address Unknown Organization K01:[facility] [place] [facility] [address] [facility] [address] [facility] [address] Laboratory Report Ordering Provider Test Date Status ROSENDA MILLER 12/07/2024 14:10:59 Final Observation Date Value Abnormality Reference (Units ) Status WBC, Total 12/07/2024 14:10:59 6.84 4.00-10.80 (K/uL) Final RBC 12/07/2024 14:10:59 4.80 3.85-5.15 (M/uL) Final Hemoglobin 12/07/2024 14:10:59 14.4 12.0-15.3 (g/dL) Final HCT 12/07/2024 14:10:59 47.0 Above high normal 36.0-45.2 (%) Final MCV 12/07/2024 14:10:59 97.9 81.5-97.5 (fL) Final MCH 12/07/2024 14:10:59 30.0 27.0-34.0 (pg) Final MCHC 12/07/2024 14:10:59 30.6 32.0-36.0 (g/dL) Final RDW 12/07/2024 14:10:59 18.0 11.5-15.5 (%) Final Platelets 12/07/2024 14:10:59 195 140-400 (K/uL) Final MPV 12/07/2024 14:10:59 12.0 6.6-11.1 (fL) Final Nucleated erythrocytes/100 leukocytes [Ratio] in Blood by Automated count 12/07/2024 14:10:59 0 <=0 (/100 WBCs) Final Performing Location [facility] [place] [address] [facility] [address]
--- OUTSIDE RECORDS SUMMARY | 2025-01-19 22:18 | External Medical Summary | Summary of Care ---
Author Name Unknown Organization [facility] Address [address] [place] [address] Phone [phone] Care Team Providers Care Wallcovering Hanger Name Role Phone Rose Marie Galloway MD Primary Care Provide r Reason for Visit * Reason Onset Date Comments Test Results 11/26/2024 Encounter Details Date Type Department Care Team (Late st Contact Info) Description 11/26/2024 Telephone Family Medicine [address] [phone] Rose Marie Galloway MD [address] [place] [address] [place] [address] Test Results Allergies Active Allergy Reactions Criticality Noted Date Comments Docetaxel 02/14/2011 Chest pain, passed out , could not talk, saw silver round bubbles documented as of this encounter (statuses as of 12/01/2024) Medications OXYCODONE HCL 10 MG PO TABSIndications:pa [...] BREAKFAST OR OTHER MEDICATION 90 Tablet 3 08/01/20 24 Active Metoprolol Succinate ER 100 MG [...] 1 Tablet before bedtime. 200 Tablet 3 11/24/19 25 Active Additional Information Patient taking differently: 2.5 mgOral BID (.AM/PM), Reported on 11/30/2024 Empagliflozin 10 MG Oral Tablet (Jardiance)Indicat ions:Systolic heart failure, chronic (HCC),Drug-induced cardiomyopathy (HCC),HTN, goal below 140/90 Take 1 Tablet by mouth in the morning. 100 Tablet 3 11/24/19 25 Active documented as of this encounter (statuses as of 12/01/2024) Active Problems Problem Noted Date Diagnosed Date NICM (nonischemic cardiomyopathy) 04/19/2024 ICD (implantable cardioverter-defibrillator) in place 04/19/2024 Chronic kidney disease, stage 3b 11/18/2022 Overview: Per CKD protocol Osteoporosis, postmenopausal 11/05/2022 Permanent atrial fibrillation 11/05/2022 Peripheral vascular disease 10/23/2021 Hx of melanoma of skin 12/04/2020 Overview (12/04/2020): 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, [place] II, 11/2020) Hypertensive heart and kidne y [...] 08/23/2014 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 metal melter current use of anticoagulant therapy 0 05/12/2006 Overview (07/07/2017): ICD-10 update of inactive term History of breast cancer 03/28/2006 Family history of other cardiovascular diseases 05/14/2005 Overview (12/28/2015): ICD-10 update of inactive term FAMILY HX-BREAST MALIG 05/14/2005 HTN, goal below 140/90 06/26/2001 Blindness of left eye documented as of this encounter (statuses as of 12/01/2024) Resolved Problems Problem Noted Date Diagnosed Date [...] as of this encounter (statuses as of 12/01/2024) Immunizations Name Administration Dates Next Due COVID-19 mRNA, LNP-s, No Pre serve, 2-Dose Series (Moderna) 02/12/2021,01/15/2021 Pneumococcal Conjugate Vacci ne, 20-valent ([id number]) 11/21/2022 Pneumococcal Polysaccharide PPV23 (Pneumovax) 08/12/2006 Seasonal [...] Telephone Encounter - Shonda Ballard CMA - 11/30/2024 11:50 AM EST Called and spoke with pt advised of message below. States she did go into hospital on Friday andwas d/c on Friday. Reports still having SOB but reports was dx with panic attacks, and is having issues figuring out her meds since her d/c. Scheduled pt for 12/[address] Markham at 200pm. VICTORINO * Telephone Encounter - Sophia Pina RN - 11/26/2024 10:53 AM EST ----- Message from Marcela Ramirez sent at 11/25/2024 1:02 PM EST ----- Labs reviewed. Kidney function is worse than previously. Appears that patient was in contact with cardiology and advised to go to the hospital for her shortness of breath. Can we follow up and see ifshe is in the hospital? Thanks! documented in this encounter Plan of Treatment Upcoming Encounters Date Type Department Care Team (Late st Contact Info) Description 12/07/2024 2:00 PM EST Office Visit Family Medicine [address] [place] [phone] Denise Garcia MD [address] [place] [address] [place] [phone] 12/21/2024 1:45 PM EDT Imaging Radiology [address], [place] [address] [place] [phone] 12/28/2024 11:00 AM EDT Nurse Only Ancillary [address] [place] [address] [place], Nurse [address] [place] [address] 12/28/2024 12:30 PM EDT Office Visit Cardiology [address] [place] [address] Graeme Pang PA-C [address] [place] [address] 04/22/2025 12:20 PM EDT Office Visit Dermatology Silvia Pederson [place] [address] [place] [address] Cindi Vo PA-C [address] [place] [address] 06/21/2025 1:40 PM EDT Office Visit Family Medicine [address] [place] [phone] Rose Marie Galloway MD [address] [place] [address] [place] [address] 10/21/2025 1:00 PM EST Office Visit Optometry, [address] [address] Raudel Hernandez, OD [address] [place] [address] Health Maintenance Due Date Last Done Comments [...] Additional history exists CKD PHOS USE SMARTSET 69942 05/25/2025 08/, 12/24/2022, 12/05/2021, Additional history exists Cologuard 08/21/2025 08/21/2022, 05/2022, 08/13/2022, Additional history exists Colorectal Cancer Screening 08/21/2025 Depression Screening 10/20/2025 10/20/2024 CKD HGB USE SMARTSET 87512 11/23/202511/23, 11/23/2024, 05/14/2024, Additional history exists TSH [...] D LEVEL ONCE IN A LIFETIME-USE SMARTSET# 32064 Completed 05/25/2024, 06/04/2023, 11/05/2022, Additional history exists [...] this encounter Medical Devices Implanted Type Area Chargeback Specialist Device Identifier Shelf Expiration Date Model / Serial / Lot Alloderm 6 X 16cm Implanted:Qty: 1 on 02/05/2007 at OR [facility] Right: Breast LIFE CELL MADDIE [id number] / [id number] / [id number] Description:Alloderm 6 x 16 cm to right breast [id number] - [id number] Implanted:Qty: 1 on 02/05/2007 at OR [facility] Left: Breast LIFE CELL MADDIE [id number] / [id number] / [id number] Description:ALLODERM TO left breast 6 x 16cm [place] Breast Implant Implanted:Qty: 1 on 02/05/2007 at OR [facility] Right: Breast MENTOR MADDIE 08/06/2010 350-1697 / [id number] / [id number] Description:700ml Breast Imp lant to Right Breast [place] Breast Implant Implanted:Qty: 1 on 02/05/2007 at OR [facility] Left: Breast MENTOR MADDIE 08/06/2010 350-1697 / [id number] / [id number] Description:[place] Breast Im plant to Left BreaST Graft Fascia Nevin 2x3 [id number] - [id number] Implanted:Qty: 1 on 03/20/2010 at OR [facility] Right: Eye [employer] INC 06/06/2014 [id number] / / [id number] Breast Implant 350-1697 Saline - [id number] Implanted:Qty: 1 on 04/20/2011 at OR [facility] Right: Breast MENTOR MADDIE 04/04/2015 350-1697 / [id number] / [id number] Description:[place] smooth ro und moderate profile saline. Envelope Antibacteral Tyrx - [id number] Implanted:Qty: 1 on 05/14/2024 by Zulema Giordano IV, MD at [facility] [employer] : CRM [id number] 01/30/2025 [id number] / / [id number] Defib [place] Mri Quad Complaint Operator-D - [id number] Implanted:Qty: 1 on 05/14/2024 by Zulema Giordano IV, MD at [facility] [employer] [id number] 07/03/2025 [id number] / [id number] / [id number] S Ring Morcher Type 14a Mr-1410 - [id number] Implanted:Qty: 1 on 08/17/2024 by Frank Zuñiga MD at OR [facility] Right: Eye MORCHER [id number] 04/04/2026 MR-1410 / [id number] / [id number] Lens 17.5 [id number] - [id number] Implanted:Qty: 1 on 08/17/2024 by Frank Zuñiga MD at OR [facility] Right: Eye ANNABELLE : SURGICAL [id number] 03/15/2029 [id number] / [id number] / [id number] documented as of this encounter Advance [...] and were consensually agreed upon. Care Teams Wallcovering Hanger Relationship Specialty Start Date End Date Rose Marie Galloway MD [address] [place] [address] [place] [address] PCP - General Family Medicine 05/24/14 documented as of this encounter
[2025-01-19] MEDS: PIPERACILLIN/TAZOBACTAM 4.5 GM/100 ML BAG IV SCH (22:38)
[2025-01-19] MEDS: guaiFENesin 600 MG TABCR PO SCH (22:39)
[2025-01-19] MEDS: APIXABAN 5 MG TABLET PO SCH (22:39)
[2025-01-19] MEDS: METOPROLOL SUCC 50MG EXT REL TAB PO SCH (22:39)
[2025-01-20] MEDS: LEVOTHYROXINE SODIUM 75 MCG TABLET PO SCH (05:44)
[2025-01-20] MEDS: DOXYCYCLINE HYCLATE 100 MG in DEXTROSE 5% MINI-B 100 ML IV SCH (06:42)
[2025-01-20 07:01] LABS: Hematocrit (blood only) 40.3 % (37.0-47.0); Hemoglobin 13.6 g/dl (12.0-16.0); Mean Corpuscular Hemoglobin 29.5 pg (25.0-34.0); Mean Corpuscular Hgb Conc 33.7 g/dL (32.0-36.0); Mean Corpuscular Volume 87.4 fL (80.0-100.0); Mean Platelet Volume 12.4 fL (9.4-12.4); Platelet Count 162 K/uL (130-400); RDW Coefficient of Variation 16.5 % (11.5-14.5); RDW Standard Deviation 52.5 fL (36.4-46.3); Red Blood Count 4.61 M/uL (4.20-5.40)
[2025-01-20 07:38] LABS: Calcium 9.2 mg/dl (8.6-10.3); Potassium 3.6 mmol/L (3.5-5.1)
[2025-01-20 07:44] LABS: BUN Creatinine Ratio 16.7 (10-20); Creatinine Clr Calc Pharmacy 31.4 ml/min
--- OUTSIDE RECORDS SUMMARY | 2025-01-20 09:43 | External Medical Summary | Summary of Care ---
Author Name Unknown Organization [facility] Address [address] [place] [address] Phone [phone] Care Team Providers Care Forming Machine Upkeep Mechanic Name Role Phone Rose Maire Galloway MD Primary Care Provide r Reason for Visit * Reason Onset Date Comments Advice 01/19/2025 Bird Encounter Details Date Type Department Care Team (Late st Contact Info) Description 01/19/2025 Telephone Cardiology, [facility] [address] [place] [phone] Graeme Pang PA-C [address] [place] [address] Advice (Bird) Allergies Active Allergy Reactions Criticality Noted Date Comments Docetaxel 02/14/2011 Chest pain, passed out , could not talk, saw silver round bubbles documented as of this encounter (statuses as of 01/20/2025) Medications OXYCODONE HCL 10 MG PO TABSIndications:pa [...] as of this encounter (statuses as of 01/20/2025) Active Problems Problem Noted Date Diagnosed Date Hypothyroidism 12/07/2024 Chronic idiopathic constipation 12/07/2024 NICM (nonischemic cardiomyopathy) 04/19/2024 ICD (implantable cardioverter-defibrillator) in place 04/19/2024 Chronic kidney disease, stage 3b 11/18/2022 Overview: Per CKD protocol Osteoporosis, postmenopausal 11/05/2022 Permanent atrial fibrillation 11/05/2022 Peripheral vascular disease 10/23/2021 Hx of melanoma of skin 12/04/2020 Overview (12/04/2020): 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, [place] II, 11/2020) Hypertensive heart and kidne y [...] cardiomyopathy 04/28/2012 CAREN (generalized anxiety disorder) 01/07/2012 Tiegwib-Afjzs-Pnhpv disease 12/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 0 05/12/2006 Overview (07/07/2017): ICD-10 update of inactive term History of breast cancer 03/28/2006 Family history of other cardiovascular diseases 05/14/2005 Overview (12/28/2015): ICD-10 update of inactive term FAMILY HX-BREAST MALIG 05/14/2005 HTN, goal below 140/90 06/26/2001 Blindness of left eye documented as of this encounter (statuses as of 01/20/2025) Resolved Problems Problem Noted Date Diagnosed Date [...] as of this encounter (statuses as of 01/20/2025) Immunizations Name Administration Dates Next Due COVID-19 mRNA, LNP-s, No Pre serve, 2-Dose Series (Moderna) 02/12/2021,01/15/2021 Pneumococcal Conjugate Vacci ne, 20-valent ([id number]) 11/21/2022 Pneumococcal Polysaccharide PPV23 (Pneumovax) 08/12/2006 Seasonal [...] No 10/20/2024 Does the household have a [facility] source of income? (Household - for [...] Telephone Encounter - Idalmis Vega CMA - 01/19/2025 12:40 PM EDT Routed to patient's provider, Graeme Pang. [place] text sent to Morenita Couch who is rounding at [facility]. * Telephone Encounter - Kaila Cole OSA - 01/19/2025 12:26 PM EDT Person calling: Carine Cornelius Relationship to patient: Friend Phone/Fax to return call: [phone] Reason for call(brief): taking Pt to ER Pharmacy: NA Provider Name: Graeme Pang PA-C Detailed message to office: Carine is taking pt to [facility] bc she believes pt is in congestive heart failure - feels very winded, retaining water in both legs, etc. * Telephone Encounter - Niki Rob LPN - 01/19/2025 11:50 AM EDT Called pt, no answer. Could not leave a vm * Telephone Encounter - Caren Martin OSA - 01/19/2025 11:40 AM EDT Person calling: pt Relationship to patient: self Phone/Fax to return call: [phone] Reason for call(brief): pt calling with c/o cough, out of breath can't sleep very tired she thinks its her heart Pharmacy: Provider Name:Bird Detailed message to office:pt called to speak to office in cardiology offered appt with pcp she has to find a ride to the office and will call back to schedule Advised would sent a message to Graeme Pang Thank you BARBARA Camacho documented in this encounter Plan of Treatment Upcoming Encounters Date Type Department Care Team (Late st Contact Info) Description 03/15/2025 1:20 PM EDT Office Visit [address] [phone] Denise Garcia MD [address] [place] [address] [place] [phone] 04/22/2025 12:20 PM EDT Office Visit Dermatology [facility] [address] [place] [address] Cindi Vo PA-C [address] [place] [address] 06/21/2025 1:40 PM EDT Office Visit Family Medicine [address] [place] [phone] Rose Marie Galloway MD [address] [place] [address] [place] [address] 10/21/2025 1:00 PM EST Office Visit Optometry, [place] [address], [place] [phone] Raudel Hernandez, OD [address] [place] [address] 11/10/2025 2:30 PM EST Office Visit Cardiology [address] [place] [address] Graeme Pang PAAvaC [address] [place] [address] 01/03/2026 1:30 PM EDT Nurse Only Ancillary [address] [place] [address] [place], Nurse Annual Wellness [address] [place] [address] [place] [address] Health Maintenance Due Date Last Done Comments [...] Additional history exists CKD HGB USE SMARTSET 11257 12/07/202512/07, 12/07/2024, 11/23/2024, Additional history exists CKD PHOS USE SMARTSET 24948 12/07/2025 03/0 01/2025, 05/25/2024, 12/24/2022, Additional history [...] D LEVEL ONCE IN A LIFETIME-USE SMARTSET# 08199 Completed 05/25/2024, 06/04/2023, 11/05/2022, Additional history exists [...] this encounter Medical Devices Implanted Type Area Supervisor Evaporator Device Identifier Shelf Expiration Date Model / Serial / Lot Alloderm 6 X 16cm Implanted:Qty: 1 on 02/05/2007 at [place] [facility] Right: Breast LIFE CELL MADDIE [id number] / [id number] / [id number] Description:Alloderm 6 x 16 cm to right breast [id number] - [id number] Implanted:Qty: 1 on 02/05/2007 at OR [facility] Left: Breast LIFE CELL MADDIE [id number] / [id number] / [id number] Description:ALLODERM TO left breast 6 x 16cm [place] Breast Implant Implanted:Qty: 1 on 02/05/2007 at OR [facility] Right: Breast MENTOR MADDIE 08/06/2010 350-1697 / [id number] / [id number] Description:700ml Breast Imp lant to Right Breast [place]ly Breast Implant Implanted:Qty: 1 on 02/05/2007 at OR [facility] Left: Breast MENTOR MADDIE 08/06/2010 350-1697 / [id number] / [id number] Description:Kimberly Breast Im plant to Left BreaST Graft Fascia Nevin 2x3 24590 - [id number] Implanted:Qty: 1 on 03/20/2010 at OR [facility] Right: Eye IOP INC 06/06/2014 15226 / / [id number] Breast Implant 350-1697 Saline - [id number] Implanted:Qty: 1 on 04/20/2011 at OR [facility] Right: Breast MENTOR MADDIE 04/04/2015 350-1697 / [id number] / [id number] Description:[place] smooth ro und moderate profile saline. Envelope Antibacteral Tyrx - [id number] Implanted:Qty: 1 on 05/14/2024 by Zulema Giordano IV, MD at [facility] [employer] : CRM [id number] 01/30/2025 CMRM6 133 / / [id number] Defib [place] Mri Quad Spinner Iron-D - [id number] Implanted:Qty: 1 on 05/14/2024 by Zulema Giordano IV, MD at [facility] [employer] [id number] 07/03/2025 [id number] / [id number] / [id number] S Ring Morcher Type 14a Mr-1410 - [id number] Implanted:Qty: 1 on 08/17/2024 by Frank Zuñiga MD at OR [facility] Right: Eye MORCHER [id number] 04/04/2026 MR-1410 / [id number] / [id number] Lens 17.5 [id number] - [id number] Implanted:Qty: 1 on 08/17/2024 by Frank Zuñiga MD at OR [facility] Right: Eye ANNABELLE : SURGICAL [id number] 03/15/2029 [id number] / [id number] / [id number] documented as of this encounter Advance [...] and were consensually agreed upon. Care Teams Forming Machine Upkeep Mechanic Relationship Specialty Start Date End Date Rose Marie Galloway MD [address] [place] [address] [place] [phone] PCP - General Family Medicine 05/24/14 documented as of this encounter
[2025-01-20] MEDS: EMPAGLIFLOZIN 10 MG TAB PO SCH (10:11)
[2025-01-20] MEDS: ESCITALOPRAM OXALATE 10 MG TAB PO SCH (10:11)
[2025-01-20] MEDS: CHOLECALCIFEROL 25 MCG (1000 UNITS) TAB PO SCH (10:11)
[2025-01-20] MEDS: ROSUVASTATIN CALCIUM 20 MG TAB PO SCH (10:11)
[2025-01-20] MEDS: DOCUSATE SODIUM/SENNA 50/8.6MG TAB PO SCH (10:12)
[2025-01-20] MEDS: FUROSEMIDE 40 MG/4 ML VIAL IV ONE (11:18)
[2025-01-20] MEDS: POTASSIUM CHLORIDE CRTAB 20 MEQ TABCR PO STA (11:18)
[2025-01-20] MEDS: ALBUT/IPRATROP 3MG/0.5MG NEB 3 ML VIAL NEB PRN (11:39)
--- NOTE | 2025-01-20 12:00 | Hospitalist Progress Note ---
Date of Service January 20, 2025 Assessment & Plan (1) Parainfluenza virus pneumonia: (2) Acute on chronic heart failure with reduced ejection fraction (HFrEF, <= 40%): (3) CKD (chronic kidney disease) stage 3, GFR 30-59 ml/min: (4) HTN (hypertension): (5) Chronic atrial fibrillation: (6) Hypothyroidism: (7) Presence of combination internal cardiac defibrillator (ICD) and pacemaker: Plan Patient 69-year-old female with acute parainfluenza virus pneumonia that is decompensated or heart failure. Reviewing imaging low suspicion for acute cholecystitis or bacterial pneumonia Advance diet Discontinue antibiotics Continue supportive care for parainfluenza viral infection Incentive spirometer, flutter valve, mucolytic's and antitussives Diuresis with IV Lasix, patient has evidence of volume overload with some edema as well as a reported 6 pound weight gain Monitor electrolytes and renal function with diuresis Encourage activity Anticipate discharge in 1 to 2 days Admission and Anticipated Discharge Date Admission Date: January 19, 2025 Subjective Patient still feels short of breath and congested. No abdominal pain. Wanting to eat more Physical Exam Physical Exam: Constitutional: Alert, moderately ill in appearance HEENT: Mucous membranes moist. Lungs: Decreased breath sounds, coarse rhonchi few scattered wheezes CV: S1-S2, regular Abdomen: Soft, nontender, nondistended Extremities: 1+ pretibial edema Neuro: No focal deficits Psych: Cooperative, normal mood Results & Data Results & Data Vital Signs (Past 12 Hours) Vital Signs Temp Pulse Pulse Resp BP Pulse Ox O2 Del Method 01/20/25 11:45 36.7 C 59 L 20 101/68 99 Room Air 01/20/25 11:41 66 18 98 Room Air 01/20/25 10:13 Room Air 01/20/25 08:37 36.4 C L 60 20 101/74 98 Room Air 01/20/25 07:09 61 01/20/25 03:48 36.4 C L 69 18 103/64 99 Room Air Diagnostic Findings Reviewed imaging, laboratory and diagnostic studies. Pertinent findings as below. WBCs 5.1 Hemoglobin 13.6 INR 1.7 Electrolytes stable Creatinine 1.44, baseline Total bilirubin 1.9 rest of LFTs within normal ranges BNP 2298 Procalcitonin 0.29 Urinalysis unremarkable Liver ultrasound showed no significant evidence of cholecystitis (3) CKD (chronic kidney disease) stage 3, GFR 30-59 ml/min Chronic kidney disease stage 3 subtype: unspecified whether 3a or 3b Qualified Code(s): N18.30 - Chronic kidney disease, stage 3 unspecified
[2025-01-20] MEDS: FUROSEMIDE 40 MG/4 ML VIAL IV SCH (14:12)
[2025-01-21 07:37] LABS: Hematocrit (blood only) 39.3 % (37.0-47.0); Hemoglobin 13.5 g/dl (12.0-16.0); Mean Corpuscular Hemoglobin 30.1 pg (25.0-34.0); Mean Corpuscular Hgb Conc 34.4 g/dL (32.0-36.0); Mean Corpuscular Volume 87.7 fL (80.0-100.0); Mean Platelet Volume 11.6 fL (9.4-12.4); Platelet Count 163 K/uL (130-400); RDW Coefficient of Variation 16.8 % (11.5-14.5); RDW Standard Deviation 53.1 fL (36.4-46.3); Red Blood Count 4.48 M/uL (4.20-5.40)
[2025-01-21 08:00] LABS: Albumin Level 3.4 gm/dl (3.4-5.0); BUN Creatinine Ratio 14.6 (10-20); Bilirubin Direct 0.6 mg/dl (0-0.2); Bilirubin,Total 1.6 mg/dl (0.2-1.0); Calcium 9.1 mg/dl (8.6-10.3); Creatinine Clr Calc Pharmacy 23.5 ml/min; Magnesium 1.7 mg/dl (1.7-2.4); Total Protein 6.3 gm/dl (6.0-8.3)
--- NOTE | 2025-01-21 11:32 | Hospitalist Progress Note ---
Date of Service January 21, 2025 Assessment & Plan (1) Parainfluenza virus pneumonia: (2) Acute on chronic heart failure with reduced ejection fraction (HFrEF, <= 40%): (3) CKD (chronic kidney disease) stage 3, GFR 30-59 ml/min: Plan: Slight increase in creatinine with diuresis but within acceptable range for her chronic kidney disease (4) HTN (hypertension): (5) Chronic atrial fibrillation: (6) Hypothyroidism: (7) Presence of combination internal cardiac defibrillator (ICD) and pacemaker: Plan Patient with acute parainfluenza bronchitis and decompensated heart failure. Has significantly improved with some diuresis. 1 dose of IV Lasix today then discontinue reevaluate for oral Lasix tomorrow Replace potassium Encourage activity Continue respiratory treatments Creatinine slightly increased today, patient has chronic renal failure, do not think that this indicates any type of acute kidney injury or failure, anticipate kidney function is essentially at baseline Eliquis dose adjusted today based on patient's weight and creatinine per pharmacy recommendations Patient aware of plans for discharge tomorrow Admission and Anticipated Discharge Date Admission Date: January 19, 2025 Subjective Patient reports her breathing is significantly improved but still little bit weak and fatigued. Not quite confident in going home yet. Physical Exam Physical Exam: Constitutional: Alert, nontoxic, sitting in chair HEENT: Mucous membranes moist. Lungs: Decreased breath sounds, significantly improved airflow, rhonchi resolved, no wheezes, few crackles at bases CV: S1-S2, regular Abdomen: Soft, nontender, nondistended Extremities: No significant edema, significantly improved Neuro: No focal deficits Psych: Cooperative, normal mood Results & Data Results & Data Vital Signs (Past 12 Hours) Vital Signs Temp Pulse Pulse Pulse Resp BP Pulse Ox 01/21/25 07:27 36.6 C 66 18 121/71 100 01/21/25 07:00 79 01/21/25 03:40 36.6 C 60 16 100/66 94 O2 Del Method 01/21/25 07:27 Room Air 01/21/25 07:00 01/21/25 03:40 Room Air Diagnostic Findings Reviewed imaging, laboratory and diagnostic studies. Pertinent findings as below. CBC stable Potassium 3.0 Carbon dioxide 33 Creatinine 1.92 Magnesium 1.7 (3) CKD (chronic kidney disease) stage 3, GFR 30-59 ml/min Chronic kidney disease stage 3 subtype: unspecified whether 3a or 3b Qualified Code(s): N18.30 - Chronic kidney disease, stage 3 unspecified
[2025-01-21] MEDS: MAGNESIUM OXIDE 400 MG TAB PO ONE (12:18)
[2025-01-21] MEDS: POTASSIUM CHLORIDE CRTAB 20 MEQ TABCR PO ONE (17:01)
[2025-01-21] MEDS: APIXABAN 2.5 MG TAB PO SCH (19:46)
[2025-01-22 02:38] VITALS: RESP 18
[2025-01-22 08:20] LABS: BUN Creatinine Ratio 17.5 (10-20); Calcium 9.1 mg/dl (8.6-10.3); Creatinine Clr Calc Pharmacy 25.5 ml/min; Magnesium 1.8 mg/dl (1.7-2.4); Potassium 3.5 mmol/L (3.5-5.1)
[2025-01-22 08:43] VITALS: BP 94/60; TEMP 98.1; O2SAT 98
--- NOTE | 2025-01-22 10:24 | Discharge Summary ---
Discharge Summary Date of Service January 22, 2025 Principal Dx & Hospital Course #1 = Principal Diagnosis (1) Parainfluenza virus pneumonia: (2) Acute on chronic heart failure with reduced ejection fraction (HFrEF, <= 40%): (3) CKD (chronic kidney disease) stage 3, GFR 30-59 ml/min: Slight increase in creatinine with diuresis but within acceptable range for her chronic kidney disease (4) HTN (hypertension): (5) Chronic atrial fibrillation: (6) Hypothyroidism: (7) Presence of combination internal cardiac defibrillator (ICD) and pacemaker: Plan Patient is a 69-year-old female with known reduced ejection fraction presented to the emergency room with increasing shortness of breath and increased weight gain. In the emergency room she tested positive for parainfluenza and had evidence of heart failure. Patient was admitted to the hospital. Initially concerns for possible cholecystitis based on CT scan findings. LFTs were not consistent with acute cholecystitis. Liver ultrasound was performed did not confirm cholecystitis. She was initially started on antibiotics for concern of cholecystitis and possible bacterial pneumonia. Once cholecystitis was ruled out and her symptoms are more attributable to a parainfluenza virus and decompensated heart failure, antibiotics were discontinued. She also had signs and symptoms consistent with decompensated heart failure. She was given some IV Lasix and she responded well to this. With diuresis her shortness of breath completely resolved her lower extremity edema resolved and her wheezing resolved. Her strength improved. She was titrated off of oxygen onto room air. She was up and ambulatory. Her electrolytes were replaced as needed. On the day of discharge she was on room air. Feeling her strength returned. She was confident in returning home. Anticipate with her chronic renal dysfunction she needs a little bit higher dose of Lasix to be effective and will continue on 40 mg daily. No antibiotics required this is a viral bronchitis that exacerbated decompensated heart failure. She will follow-up with her PCP as previous. Notes For Next Care Provider Medication Changes From Visit Lasix dose increased to 40 Guaifenesin as needed Eliquis dose decreased due to renal dysfunction Admission HPI Per Admitting Provider 69-year-old female PMH HTN, HLD, history drug induced cardiomyopathy with HFrEF, s/p ICD 03/2015, history complete heart block s/p pacemaker defibrillator in 05/2018, paroxysmal atrial fibrillation s/p cardioversion 12/23/2014 and 02/22/2018 and now permanent atrial fibrillation, anticoagulated on Eliquis, CKD III, hypothyroidism, Vgtewpi-Sgynr-Jhjfr disease, history of breast cancer, and other problems listed below who presents to the ED for evaluation of shortness of breath. Patient recently admitted to [facility] 11/24 - 11/28 for decompensated hea rt failure. Due to hypotension, at discharge, furosemide was held and metoprolol was reduced to 50 mg twice daily. 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 Patient reports worsening shortness of breath over the past 2 weeks. She also reports a cough. She endorses orthopnea and some ankle edema. Also states that she has gained about 6 pounds however she is unsure in what timeframe. Yesterday she reports some nausea and dry heaving. No abdominal pain or diarrhea. Denies fevers and chills. No chest pain or palpitations. Denies lightheadedness, dizziness, diaphoresis, syncopal events. No urinary symptoms. In The ED, patient is hemodynamically stable. Chest CT shows a lingular pneumonia. CT ABD/pelvis shows contracted gallbladder with possible pericholecystic fluid and/or gallbladder wall thickening. Labs show proBNP 2200. Patient was given IV Doxy and IV Zosyn. Admission Exam Per Admitting Provider See H&P Discharge Exam Constitutional: Alert, nontoxic HEENT: Mucous membranes moist. Lungs: Decreased breath sounds, no rales, no wheezes CV: S1-S2, regular Abdomen: Soft, nontender, nondistended Extremities: No significant edema Neuro: No focal deficits Psych: Cooperative, normal mood Updated Medication List Medication Instructions Recorded Confirmed Type cholecalciferol (vitamin D3) 50 50 mcg PO DAILY 11/24/24 01/19/25 History mcg (2,000 unit) tablet (Vitamin D3) empagliflozin 10 mg tablet 10 mg PO DAILY 11/24/24 01/19/25 History (Jardiance) levothyroxine 75 mcg tablet 75 mcg PO DAILYBB 11/24/24 01/19/25 History rosuvastatin 20 mg tablet 20 mg PO DAILY 11/24/24 01/19/25 History spironolactone 25 mg tablet 12.5 mg PO 3XWK 11/24/24 01/19/25 History metoprolol succinate 50 mg 50 mg PO BID #60 tabs 11/28/24 01/19/25 Rx tablet,extended release 24 hr apixaban 5 mg tablet (Eliquis) 5 mg PO BID 01/19/25 01/19/25 History escitalopram oxalate 5 mg tablet 5 mg PO QAM 01/19/25 01/19/25 History oxycodone 10 mg tablet 10 mg PO Q8H PRN Pain 01/19/25 01/19/25 History sennosides 8.6 mg-docusate sodium 1 tab PO DAILY 01/19/25 01/19/25 History 50 mg tablet (Senexon-S) albuterol sulfate 90 mcg/actuation 2 inh inhalation Q6H PRN shortness 01/22/25 Rx aerosol inhaler of breath or wheezing #8.5 grams apixaban 2.5 mg tablet (Eliquis) 2.5 mg PO BID #60 tabs 01/22/25 Rx furosemide 40 mg tablet 40 mg PO DAILY #60 tabs 01/22/25 Rx guaifenesin 600 mg tablet, 1,200 mg (2 x 600 mg) PO Q12 PRN 01/22/25 Rx extended release 12 hr (Mucinex) Congestion #30 tabs Hospital Stay Data Consultations 01/19/25 17:17 ED Decision to Admit Stat Diagnostic Imagining Performed 01/19/25 15:41 CT abd pelvis wo con Stat CT chest diagnostic wo con Stat 01/19/25 17:49 US RUQ [US liver] Routine Reviewed imaging, laboratory and diagnostic studies. Pertinent findings as below. Potassium 3.5 Creatinine 1.77, baseline Magnesium 1.8 Ultrasound of the liver and gallbladder showed some questionable thickening no evidence of cholecystitis no gallstones. Blood cultures no growth Pending Results Patient Have Any Pending Studies at Discharge: No Discharge Instructions Given to Patient (Per Discharging Provider) Call 911 and go to the Emergency Room if: * You have tightness or pain in your chest that does not go away with rest or Nitroglycerin * You are very short of breath even with rest Call your doctor if any of the following symptoms or problems start or get worse: * Shortness of breath or difficulty breathing * Wake up at night short of breath * Chest pain * Cough * Swelling of your hands, fee, or legs * More fatigued or tired with your normal activity * Palpitations - sudden fast heart beats WEIGHT * Weigh yourself every morning after using the bathroom. * Use the same scale. * Wear the same amount of clothing. * Write your weight down on your chart. * Call your doctor if you gain more than 2-3 pounds in 1-2 days. MEDICATIONS * Use this discharge instruction sheet for instructions. * Take your medications at the time your doctor ordered. * Do not skip a dose of your medicines. * If you miss a dose of medicine, take as soon as possible, but DO NOT DOUBLE A DOSE. * Read your medicine information when you get home. * Know all of the side effects of your medicine. * Call your doctor's office if you have any side effects. * Be sure all of your doctors know what medicine and herbs you take (including cold, flu, and herbal medicine). * Pain Medicine: If you do not get relief from your pain, please call your doctor for help. Take the following with you to your follow-up doctor appointments: * Weight Chart * Medication List * List of questions Do not drink excessive alcohol, beer or wine. Your Eliquis dose was decreased due to you chronic kidney dysfunction Your Lasix dose was increased to keep fluid off of your lungs and legs. Total Time Total Time Spent Total Time Spent (In Minutes): 37
[2025-01-22] MEDS: POTASSIUM CHLORIDE CRTAB 20 MEQ TABCR PO STA (10:35)
[2025-01-22 11:59] VITALS: PULSE 60
== END 2025-01-22 13:39 | disposition home or self-care (01) | DRG 193 ==
LOC: ED 12:58 → 2W 21:09 → SUATTDRO 21:25 → 2W 21:25

== ENCOUNTER 2025-04-07 14:47 | Inpatient (IN) ==
[2025-04-07 15:28] LABS: Hematocrit (blood only) 40.9 % (37.0-47.0); Hemoglobin 13.5 g/dl (12.0-16.0); Immature Granulocytes # (auto) 0.03 K/uL (0.01-0.20); Immature Granulocytes % (auto) 0.5 %; Mean Corpuscular Hemoglobin 29.4 pg (25.0-34.0); Mean Corpuscular Volume 89.1 fL (80.0-100.0); Platelet Count 206 K/uL (130-400); RDW Standard Deviation 64.1 fL (36.4-46.3); Red Blood Count 4.59 M/uL (4.20-5.40); White Blood Count 6.22 K/ul (4.8-10.8)
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
[2025-04-07 15:46] LABS: Alanine Aminotransferase 10.0 U/L (7-52); Albumin Globulin Ratio 1.1 (0.9-2); Alkaline Phosphatase 111.0 U/L (34-104); Anion Gap 7.0 (3-11); Bilirubin,Total 2.5 mg/dl (0.2-1.0); Blood Urea Nitrogen 17.0 mg/dl (6-23); Calcium 9.3 mg/dl (8.6-10.3); Carbon Dioxide 25.0 mmol/L (21-32); Chloride 102.0 mmol/L (98-107); Creatinine Clr Calc Pharmacy 44.5 ml/min; Globulin 3.2 gm/dl (2.5-4.0); Glucose 89.0 mg/dl (70-99(Fasting)); Potassium 3.6 mmol/L (3.5-5.1); Sodium 134.0 mmol/L (136-145); Total Protein 6.7 gm/dl (6.0-8.3)
--- NOTE | 2025-04-07 15:47 | XRay Report ---
XR chest 1V portable CLINICAL HISTORY: Chest pain, nonspecific COMPARISON STUDY: 03/28/2025 FINDINGS: Stable pacemaker. Stable cardiomegaly without pulmonary vascular congestion. There is an in terval small area of patchy opacity medial right lung base. No other consolidation or pleural effusio n. No pneumothorax. IMPRESSION: Possible early pneumonia medial right lung base. ACT 112: Negative or not required by law. Electronically signed by: Marvin Bar M.D. 04/07/2025 3:46 PM
[2025-04-07 15:57] LABS: INR 1.4 (0.9-1.1); Partial Thromboplastin Time 32 Seconds (21-31); Prothrombin Time 14.3 Seconds (9.0-12.0)
[2025-04-07] MEDS: FUROSEMIDE 40 MG/4 ML VIAL IV ONE (16:03)
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
[2025-04-07] MEDS: cefTRIAXone SODIUM 2,000 MG/50 ML BAG IV STA (17:16)
[2025-04-07] MEDS: POTASSIUM CHLORIDE CRTAB 20 MEQ TABCR PO STA (17:17)
[2025-04-07] MEDS ORDERED: POLYETHYLENE (MIRALAX) 17 GM PACK PO PRN (18:34)
[2025-04-07] MEDS: DOXYCYCLINE HYCLATE 50 MG CAP PO ONE (18:53)
--- NOTE | 2025-04-07 19:27 | XRay Report ---
EXAMINATION: X-ray hip right 2 view with pelvis CLINICAL HISTORY: Fall PRIORS: CT 01/19/2025 TECHNIQUE: AP view pelvis, 2 views right hip FINDINGS: Left total hip arthroplasty present in unchanged and appearance. [id number] degenerative change of the right hip present with no acute displaced fracture or dislocation. Pubic symphysis is not widened. Obturator rings are unremarkable. Sacroiliac joints are patent. Prominent osteophyte of the superolateral acetabulum and superolateral aspect of the humeral head. No soft tissue abnormality. IMPRESSION: 1. No plain film evidence of an acute osseous abnormality. 2. Advanced degenerative change of the right hip with anatomy that may predispose to femoral acetabular impingement. Electronically signed by Maggie 04-07-2025 7:27 PM
--- NOTE | 2025-04-07 19:28 | XRay Report ---
EXAMINATION: X-ray knee right 3 view CLINICAL HISTORY: Fall PRIORS: None TECHNIQUE: Frontal, lateral and patella view. FINDINGS: Moderate osseous demineralization noted. Alignment maintained. Diffuse edema throughout the visualized subcutaneous tissues. Moderate to advanced tricompartmental degenerative change of the right knee with peaking of the tibial spines. No acute or displaced fracture or dislocation. Enthesophytes of the patella noted. No suprapatellar joint effusion. No subcutaneous gas. Moderate lateral patella subluxation. IMPRESSION: 1. No plain film evidence of an acute osseous abnormality. 2. Osseous demineralization with tricompartmental degenerative change and diffuse edema throughout the soft tissues. Electronically signed by Maggie 04-07-2025 7:27 PM
[2025-04-07] MEDS: METOPROLOL SUCC 50MG EXT REL TAB PO SCH (19:52)
[2025-04-07] MEDS: APIXABAN 2.5 MG TAB PO SCH (19:52)
[2025-04-08] MEDS: LEVOTHYROXINE SODIUM 75 MCG TABLET PO SCH (05:51)
[2025-04-08 06:20] LABS: Hematocrit (blood only) 36.1 % (37.0-47.0); Hemoglobin 11.8 g/dl (12.0-16.0); Mean Corpuscular Hemoglobin 28.9 pg (25.0-34.0); Mean Corpuscular Volume 88.3 fL (80.0-100.0); Platelet Count 168 K/uL (130-400); RDW Standard Deviation 62.2 fL (36.4-46.3); Red Blood Count 4.09 M/uL (4.20-5.40); White Blood Count 4.92 K/ul (4.8-10.8)
[2025-04-08 06:54] LABS: Alanine Aminotransferase 8.0 U/L (7-52); Albumin Globulin Ratio 1.1 (0.9-2); Alkaline Phosphatase 86.0 U/L (34-104); Anion Gap 7.0 (3-11); Bilirubin,Total 1.8 mg/dl (0.2-1.0); Blood Urea Nitrogen 17.0 mg/dl (6-23); Calcium 8.4 mg/dl (8.6-10.3); Carbon Dioxide 26.0 mmol/L (21-32); Chloride 104.0 mmol/L (98-107); Creatinine Clr Calc Pharmacy 43.1 ml/min; Globulin 2.5 gm/dl (2.5-4.0); Glucose 68.0 mg/dl (70-99(Fasting)); Magnesium 1.8 mg/dl (1.7-2.4); Potassium 3.5 mmol/L (3.5-5.1); Sodium 137.0 mmol/L (136-145); Total Protein 5.2 gm/dl (6.0-8.3)
[2025-04-08] MEDS: DOCUSATE SODIUM/SENNA 50/8.6MG TAB PO SCH (08:15)
[2025-04-08] MEDS: DOXYCYCLINE HYCLATE 100 MG CAP PO SCH (08:15)
[2025-04-08] MEDS: POTASSIUM CHLORIDE CRTAB 20 MEQ TABCR PO SCH (08:15)
[2025-04-08] MEDS: ROSUVASTATIN CALCIUM 20 MG TAB PO SCH (08:16)
[2025-04-08] MEDS: FUROSEMIDE 40 MG/4 ML VIAL IV SCH (08:16)
[2025-04-08] MEDS: SPIRONOLACTONE 12.5 MG TAB PO SCH (08:16)
[2025-04-08] MEDS: CHOLECALCIFEROL 25 MCG (1000 UNITS) TAB PO SCH (08:16)
[2025-04-08] MEDS: ESCITALOPRAM OXALATE 10 MG TAB PO SCH (08:16)
[2025-04-08] MEDS: EMPAGLIFLOZIN 10 MG TAB PO SCH (08:16)
--- NOTE | 2025-04-08 08:54 | Hospitalist Progress Note ---
Date of Service April 08, 2025 Assessment & Plan (1) Acute on chronic heart failure with reduced ejection fraction (HFrEF, <= 40%): (2) Chronic atrial fibrillation: (3) Nonischemic cardiomyopathy: (4) Presence of combination internal cardiac defibrillator (ICD) and pacemaker: (5) CKD (chronic kidney disease) stage 3, GFR 30-59 ml/min: (6) Fall: (7) Hypothyroidism: Plan: Patient is 69-year-old female with PMH HTN, HLD, history drug induced cardiomyopathy with HFrEF, s/p ICD 03/2015, history complete heart block s/p pacemaker defibrillator in 05/2018, paroxysmal atrial fibrillation s/p cardioversion 12/23/2014 and 02/22/2018 and now permanent atrial fibrillation, anticoagulated on Eliquis, CKD III, hypothyroidism, Kuloijj-Tgfqu-Lwraj disease, history of breast cancer and others listed below presented to ER with complaint of increased shortness of breath, BLE swelling and weight gain 5 pounds over the last several days. #Acute on chronic HFrEF #Nonischemic cardiomyopathy #ICD in place #Chronic atrial fibrillation anticoagulated on Eliquis In ER vitals stable, no hypoxia. negative troponin In ER given 40 mg Lasix IV BNP 1600s 10/14/2024 echo: EF: 30-34%, severe diffuse left ventricular hypokinesis, right atrium severely enlarged, mild mitral regurgitation, mild tricuspid regurgitation, mild pulmonary hypertension Monitor I's and O's, daily weight Hold home oral Lasix and started Lasix 40mg IV daily Start potassium supplement Echo Continue home Jardiance, metoprolol succinate, Eliquis, spirononlactone Consider cardiology consult CBC, CMP, magnesium labs in am #Pneumonia Possible Pneumonia right lung CXR: Possible early pneumonia medial right lung base. Pt has some nonproductive cough, No fever, chills Procalcitonin negat. Started Rocephin, doxycycline on admission, will cont. for now added guaifenesin, IS, flutter valve #Recurrent Falls Patient reports two mechanical falls in 03/2025 Seen at [facility] ER 03/28/[address] head, CT C-spine at that time Reports ongoing right hip and right knee pain since fall with difficulty ambulating Noted unsteady gait in ER Obtain xray hip/pelvis and R knee to r/o fracture XR knee - 1. No plain film evidence of an acute osseous abnormality. 2. Osseous demineralization with tricompartmental degenerative change and diffuse edema throughout the soft tissues. XR pelvis - 1. No plain film evidence of an acute osseous abnormality. 2. Advanced degenerative change of the right hip with anatomy that may predispose to femoral acetabular impingement. Will obtain b/l LE doplers to r/o dvt Fall precautions PT/OT eval #CKD III Cr: 1.1. Baseline ~1.3 Current Cr 1.1 - stable Monitor renal functions. Avoid nephrotoxic agents when possible #Hypothyroidism Continue levothyroxine DVT Prophylaxis On home Eliquis 2.5 bid Admit telemetry Full Code as per admitting provider's discussion with pt Follows with Dr Galloway for routine care Admission and Anticipated Discharge Date Admission Date: April 07, 2025 Subjective Pt seen in follow up shortness of breath, likely secondary to CHF exacerb., poss . pna Currently lying down in bed in NAD, getting Echo Pt says her shortness of breath is improved, denies any chest pain, reports some nonproductive cough No abd. pain, n/v Reports some LE tenderness, and difficulty w/ movement since her fall Review of Systems Review of Systems: All systems reviewed & are unremarkable except as noted in Subjective Physical Exam Physical Exam: General: no distress, WDWN Head: normocephalic, atraumatic Eyes: conjunctiva non-injected, anicteric ENT: normal inspection external ears, nose, mucous membranes moist Neck: supple, trachea midline Lungs: no respiratory distress, decreased breath sounds, +mild rales bases right worse than left CV: regular Abd: normal BS, soft, non-tender Ext: RLE: right hip non-tender to palpation, very limited active ROM right hip as pt reports anterior hip pain with attempt at ROM. right knee non-tender to palpation but tenderness reproduced with flexion of knee. distal pulses palpable. Difficulty w/ movement of both LEs d/t pain Neuro: A&O x 3, no focal deficits noted, normal affect Skin: warm, dry, +ecchymosis left dorsal foot, +ecchymosis bilateral shins Results & Data Results & Data Vital Signs (Past 12 Hours) Vital Signs Temp Pulse Pulse Resp BP Pulse Ox O2 Del Method 04/08/25 07:51 36.5 C 60 18 98/64 L 98 Room Air 04/08/25 05:53 60 04/08/25 03:14 36.5 C 60 20 96/60 L 99 Room Air 04/07/25 23:31 36.5 C 59 L 20 98/68 L 100 Room Air 04/07/25 21:43 60 Laboratory Results 04/08/25 04/07/25 Range/Units 05:20 15:05 WBC 4.92 6.22 (4.8-10.8) K/ul RBC 4.09 L 4.59 (4.20-5.40) M/uL Hgb 11.8 L 13.5 (12.0-16.0) g/dl Hct 36.1 L 40.9 (37.0-47.0) % MCV 88.3 89.1 (80.0-100.0) fL MCH 28.9 29.4 (25.0-34.0) pg MCHC 32.7 33.0 (32.0-36.0) g/dL RDW Std Deviation 62.2 H 64.1 H (36.4-46.3) fL RDW Coeff of Beau 19.3 H 19.9 H (11.5-14.5) % Plt Count 168 206 (130-400) K/uL MPV 10.9 10.7 (9.4-12.4) fL Immature Gran % (Auto) 0.5 % Neut % (Auto) 62.3 % Lymph % (Auto) 26.0 % [place] % (Auto) 9.8 % Eos % (Auto) 0.6 % Baso % (Auto) 0.8 % Neut # (Auto) 3.87 (1.40-6.50) K/uL Lymph # (Auto) 1.62 (1.20-3.40) K/uL [place] # (Auto) 0.61 H (0.11-0.59) K/uL Eos # (Auto) 0.04 (0.00-0.50) K/uL Baso # (Auto) 0.05 (0.00-0.20) K/uL Immature Gran # (Auto) 0.03 (0.01-0.20) K/uL PT 14.3 H (9.0-12.0) Seconds INR 1.4 H (0.9-1.1) APTT 32 H (21-31) Seconds PTT Ratio 1.2 Sodium 137 134 L (136-145) mmol/L Potassium 3.5 3.6 (3.5-5.1) mmol/L Chloride 104 102 (98-107) mmol/L Carbon Dioxide 26 25 (21-32) mmol/L Anion Gap 7 7 (3-11) BUN 17 17 (6-23) mg/dl Creatinine 1.18 1.14 (0.6-1.2) mg/dl Est Cr Clr Drug Dosing 43.1 44.5 ml/min eGFR 50.62 52.76 BUN/Creatinine Ratio 14.4 14.9 (10-20) Glucose 68 L 89 (70-99(Fasting)) mg/dl Calcium 8.4 L 9.3 (8.6-10.3) mg/dl Magnesium 1.8 (1.7-2.4) mg/dl Total Bilirubin 1.8 H 2.5 H (0.2-1.0) mg/dl AST 12 L 14 (13-39) U/L ALT 8 10 (7-52) U/L Alkaline Phosphatase 86 111 H (34-104) U/L Troponin I High Sens 11.1 (0-14) pg/ml B-Natriuretic Peptide 1654 H (0-100) pg/ml Total Protein 5.2 L D 6.7 (6.0-8.3) gm/dl Albumin 2.7 L 3.5 (3.4-5.0) gm/dl Globulin 2.5 3.2 (2.5-4.0) gm/dl Albumin/Globulin Ratio 1.1 1.1 (0.9-2) Procalcitonin 0.06 (0-0.5) ng/ml Medications Administered Current Inpatient Medications Acetaminophen (Acetaminophen 325 Mg Tab) 650 mg PO Q4H PRN PRN Reason: Pain or Fever Stop: 05/07/25 18:33 Apixaban (Apixaban 2.5 Mg Tab) 2.5 mg PO BID JESSIKA Stop: 05/07/25 20:59 Last Admin: 04/08/25 08:16 Dose: 2.5 mg Doxycycline Hyclate (Doxycycline Hyclate 100 Mg Cap) 100 mg PO BID JESSIKA Stop: 04/13/25 08:59 Last Admin: 04/08/25 08:15 Dose: 100 mg Empagliflozin (Empagliflozin 10 Mg Tab) 10 mg PO QAM [facility] Stop: 05/08/25 08:59 Last Admin: 04/08/25 08:16 Dose: 10 mg Escitalopram Oxalate (Escitalopram Oxalate 10 Mg Tab) 5 mg PO QAM [facility] Stop: 05/08/25 08:59 Last Admin: 04/08/25 08:16 Dose: 5 mg Furosemide (Furosemide 40 Mg/4 Ml Vial) 40 mg IV DAILY [facility] Stop: 05/08/25 08:59 Last Admin: 04/08/25 08:16 Dose: 40 mg Ceftriaxone Sodium (Rocephin) 2,000 mg in 50 mls @ 100 mls/hr IV Q24H JESSIKA Stop: 04/13/25 16:59 Promethazine HCl (Phenergan) 6.25 mg in 50.25 mls @ 201 mls/hr IV Q6H PRN PRN Reason: Nausea And Vomiting Stop: 05/07/25 18:33 Levothyroxine Sodium (Levothyroxine Sodium 75 Mcg Tablet) 75 mcg PO DAILYBB [facility] Stop: 05/08/25 06:29 Last Admin: 04/08/25 05:51 Dose: 75 mcg Magnesium Hydroxide (Magnesium Hydroxide Susp 30 Ml Udc) 30 ml PO Q12H PRN PRN Reason: Constipation Stop: 05/07/25 18:33 Metoprolol Succinate (Metoprolol Succ 50mg Ext Rel Tab) 50 mg PO AMHS [facility] Stop: 05/07/25 20:59 Last Admin: 04/08/25 08:10 Dose: Not Given Polyethylene Glycol (Polyethylene (Miralax) 17 Gm Pack) 17 gm PO DAILY PRN PRN Reason: Constipation Stop: 05/07/25 18:33 Potassium Chloride (Potassium Chloride Crtab 20 Meq Tabcr) 20 me[facility] [place] Stop: 05/08/25 08:59 Last Admin: 04/08/25 08:15 Dose: 20 meq Rosuvastatin Calcium (Rosuvastatin Calcium 20 Mg Tab) 20 mg [facility] [place] Stop: 05/08/25 08:59 Last Admin: 04/08/25 08:16 Dose: 20 mg Senna/Docusate Sodium (Docusate Sodium/Senna 50/8.6mg Tab) 1 tab PO [facility] [place] Stop: 05/08/25 08:59 Last Admin: 04/08/25 08:15 Dose: 1 tab Spironolactone (Spironolactone 12.5 Mg Tab) 12.5 mg PO MoWeFr@0900 [facility] Stop: 05/08/25 08:59 Last Admin: 04/08/25 08:16 Dose: 12.5 mg Vitamin D (Cholecalciferol 25 Mcg (1000 Units) Tab) 50 mcg PO QAM [facility] Stop: 05/08/25 08:59 Last Admin: 04/08/25 08:16 Dose: 50 mcg (5) CKD (chronic kidney disease) stage 3, GFR 30-59 ml/min Chronic kidney disease stage 3 subtype: unspecified whether 3a or 3b Qualified Code(s): N18.30 - Chronic kidney disease, stage 3 unspecified (6) Fall Encounter type: initial encounter Qualified Code(s): W19.XXXA - Unspecified fall, initial encounter
[2025-04-08] MEDS: MAGNESIUM OXIDE 400 MG TAB PO SCH (10:03)
[2025-04-08] MEDS: guaiFENesin 600 MG TABCR PO SCH (10:03)
[2025-04-08] MEDS: POTASSIUM CHLORIDE CRTAB 20 MEQ TABCR PO STA (10:03)
--- NOTE | 2025-04-08 15:54 | Ultrasound Report ---
HISTORY: Bilateral lower extremity swelling. TECHNIQUE: Bilateral lower extremity venous Doppler evaluation for DVT. COMPARISON: None. FINDINGS: The bilateral common femoralVeins, greater saphenous junctions, femoral veins, popliteal veins appear color Doppler patent and compressible. Color Doppler flow is demonstrated in the deep femoral,posterior tibial, peroneal, and anterior tibial veins. Respiratory variation and augmentation is noted. IMPRESSION: No evidence of lower extremity DVT. Electronically signed by Harris Hagan 04-08-2025 3:54 PM
[2025-04-08] MEDS: cefTRIAXone SODIUM 2,000 MG/50 ML BAG IV SCH (17:10)
[2025-04-09 07:57] LABS: Hematocrit (blood only) 37.4 % (37.0-47.0); Hemoglobin 12.5 g/dl (12.0-16.0); Mean Corpuscular Hemoglobin 29.1 pg (25.0-34.0); Mean Corpuscular Volume 87.0 fL (80.0-100.0); Platelet Count 179 K/uL (130-400); RDW Standard Deviation 61.0 fL (36.4-46.3); Red Blood Count 4.30 M/uL (4.20-5.40); White Blood Count 6.40 K/ul (4.8-10.8)
--- NOTE | 2025-04-09 08:07 | Hospitalist Progress Note ---
Date of Service April 09, 2025 Assessment & Plan (1) Acute on chronic heart failure with reduced ejection fraction (HFrEF, <= 40%): (2) Chronic atrial fibrillation: (3) Nonischemic cardiomyopathy: (4) Presence of combination internal cardiac defibrillator (ICD) and pacemaker: (5) CKD (chronic kidney disease) stage 3, GFR 30-59 ml/min: (6) Fall: (7) Hypothyroidism: Plan: Patient is 69-year-old female with PMH HTN, HLD, history drug induced cardiomyopathy with HFrEF, s/p ICD 03/2015, history complete heart block s/p pacemaker defibrillator in 05/2018, paroxysmal atrial fibrillation s/p cardioversion 12/23/2014 and 02/22/2018 and now permanent atrial fibrillation, anticoagulated on Eliquis, CKD III, hypothyroidism, Dhhdcft-Tigob-Sgzgk disease, history of breast cancer and others listed below presented to ER on 04/07/25 with complaint of increased shortness of breath, BLE swelling and 5 pound weight gain. #Acute on chronic HFrEF #Nonischemic cardiomyopathy #ICD in place #Chronic atrial fibrillation anticoagulated on Eliquis Received IV lasix 40mg x 2 total doses on 04/07 & 04/08 with improvement of BLE edema and dyspnea, orthopnea. -2250ml balance since admission 10/14/2024 echo: EF: 30-34%, severe diffuse left ventricular hypokinesis, right atrium severely enlarged, mild mitral regurgitation, mild tricuspid regurgitation, mild pulmonary hypertension 04/08/25 echo: EF: 20-25%, diffuse hypokinesis, mild mitral regurgitation, right ventricular systolic function mildly reduced, moderate tricuspid regurgitation, mild pulmonary hypertension Monitor I's and O's, daily weight Patient with soft BPs, HR controlled Back on home dose Lasix 40mg daily Continue potassium supplement Continue home Jardiance, metoprolol succinate, Eliquis, spironolactone CBC, CMP, magnesium labs in am Cardiology consulted. "Is concerned about low CO and lactate was ordered and if lactate is elevated, may benefit from IV milrinone but needs a Right Heart Catheterization to Confirm hemodynamics. Recommended continuing Jardiance 10mg qday and Toprol 50mg qday, Aldactone 12.5mg every other day. Recommended can consider 1/2 tab of Entresto 24/26mg BID, if BP drops, add midodrine 10mg TID" #Pneumonia Possible Pneumonia right lung CXR: Possible early pneumonia medial right lung base. Procalcitonin was negative Pt denies cough, fever, chills Received Rocephin, doxycycline. Will continue doxycycline and change to cefuroxime Flutter valve, incentive spirometry, Mucinex #Recurrent Falls Patient reports two mechanical falls in 03/2025 Seen at [facility] ER 03/28/[address] head, CT C-spine at that time Had ongoing right hip, right thigh, bilateral knee pain since fall with difficulty ambulating Noted unsteady gait in ER. Today patient able to actively flex and extend legs in bed which is improvement Hip/pelvis, R knee, Right femur and L knee xrays negative for fracture Venous doppler negative for DVT Fall precautions Awaiting PT/OT eval #CKD III Cr: 1.3. Baseline ~1.3 Monitor renal functions. Avoid nephrotoxic agents when possible #Hypothyroidism Continue levothyroxine DVT Prophylaxis On Eliquis Pt was seen and care coordinated with Dr Mendieta. See addendum Admission and Anticipated Discharge Date Admission Date: April 07, 2025 Supervising Physician Co-Signing Physician Notes Pt seen and examined by me, care coordinated w/ KEATON Johansen , pls refer to her note above for further detail. Pt is lying in bed, in NAD, overall feels much better, breathing is better, LE edema much improved/ resolved , also moving LEs today much better than yesterday. Will switch IV abx to oral. Consulted cardiology given very low EF. PT eval. pending. MD Gayatri Subjective Patient seen and examined sitting in bed. Reports breathing better today and denies SOB and reports orthopnea has resolved. Feels like BLE edema is improved also. Denies CP. Denies cough. States appetite is decreased but is eating and drinking. States legs are feeling better today but still having some bilateral knee discomfort. Today is able to flex and extend bilateral hips and knees which is improvement from prior. Denies fever/chills, diaphoresis, N/V/D/C, WOOD, dizziness, syncope, palpitations, abdominal pain, rashes, urinary symptoms. Review of Systems Review of Systems: All systems reviewed & are unremarkable except as noted in HPI & below Physical Exam Physical Exam: General: no acute distress, chronic ill appearing elderly female Head: normocephalic, atraumatic Eyes: conjunctiva non-injected, anicteric ENT: normal inspection external ears, nose, mucous membranes moist Neck: supple, trachea midline Lungs: clear, no respiratory distress, no wheezing/rhonchi/rales CV: irregularly irregular, rate 60, trace pretibial edema Abd: normal BS, soft, non-tender Ext: no cyanosis, no calf tenderness. RLE: right hip non-tender to palpation, able to active flex and extend hip. Right knee non-tender to palpation and able to flex and extend. Left hip non-tender and able to active flex and extend. +ecchymosis to left anterior knee and tenderness to palpation, able to flex and extend knee. distal pulses palpable, sensation to light touch intact Neuro: A&O x 3, no focal deficits noted, normal affect Skin: warm, dry Results & Data Results & Data Vital Signs (Past 12 Hours) Vital Signs Temp Pulse Pulse Resp BP Pulse Ox O2 Del Method 04/09/25 07:50 36.4 C L 59 L 18 102/68 96 Room Air 04/09/25 05:44 66 04/09/25 02:42 36.5 C 64 18 92/61 L 96 Room Air 04/08/25 23:35 60 04/08/25 22:21 36.6 C 60 18 99/64 L 96 Room Air Laboratory Results Short CBC 04/09/25 Range/Units 07:14 WBC 6.40 (4.8-10.8) K/ul Hgb 12.5 (12.0-16.0) g/dl Hct 37.4 (37.0-47.0) % Plt Count 179 (130-400) K/uL [facility] 04/09/25 07:14 Sodium 135 L Potassium 4.1 Chloride 102 Carbon Dioxide 27 BUN 26 H Creatinine 1.35 H Glucose 91 Calcium 8.7 Medications Administered Current Inpatient Medications Acetaminophen (Acetaminophen 325 Mg Tab) 650 mg PO Q4H PRN PRN Reason: Pain or Fever Stop: 05/07/25 18:33 Apixaban (Apixaban 2.5 Mg Tab) 2.5 mg PO BID JESSIKA Stop: 05/07/25 20:59 Last Admin: 04/09/25 08:13 Dose: 2.5 mg Cefuroxime Axetil (Cefuroxime Axetil 500 Mg Tab) 500 mg PO BID [facility] Stop: 04/14/25 10:14 Last Admin: 04/09/25 11:27 Dose: 500 mg Doxycycline Hyclate (Doxycycline Hyclate 100 Mg Cap) 100 mg PO BID [facility] Stop: 04/13/25 08:59 Last Admin: 04/09/25 08:13 Dose: 100 mg Empagliflozin (Empagliflozin 10 Mg Tab) 10 mg PO QAM [facility] Stop: 05/08/25 08:59 Last Admin: 04/09/25 08:13 Dose: 10 mg Escitalopram Oxalate (Escitalopram Oxalate 10 Mg Tab) [facility] [place] Stop: 05/08/25 08:59 Last Admin: 04/09/25 08:13 Dose: 5 mg Furosemide (Furosemide 40 Mg Tab) 40 [facility] [place] Stop: 05/09/25 08:59 Last Admin: 04/09/25 08:11 Dose: 40 mg Guaifenesin (Guaifenesin 600 Mg Tabcr) 600 mg PO Q12 [facility] Stop: 05/08/25 09:04 Last Admin: 04/09/25 08:12 Dose: 600 mg Promethazine HCl (Phenergan) 6.25 mg in 50.25 mls @ 201 mls/hr IV Q6H PRN PRN Reason: Nausea And Vomiting Stop: 05/07/25 18:33 Levothyroxine Sodium (Levothyroxine Sodium 75 Mcg Tablet) 75 mcg PO DAILYBB [facility] Stop: 05/08/25 06:29 Last Admin: 04/09/25 05:40 Dose: 75 mcg Magnesium Hydroxide (Magnesium Hydroxide Susp 30 Ml Udc) 30 ml PO Q12H PRN PRN Reason: Constipation Stop: 05/07/25 18:33 Magnesium Oxide (Magnesium Oxide 400 Mg Tab) [facility] [place] Stop: 05/08/25 09:14 Last Admin: 04/09/25 08:12 Dose: 400 mg Metoprolol Succinate (Metoprolol Succ 50mg Ext Rel Tab) 50 mg PO AMHS [facility] Stop: 05/07/25 20:59 Last Admin: 04/09/25 08:14 Dose: 50 mg Midodrine (Midodrine Hcl 2.5 Mg Tab) 2.5 mg PO TID@0800,1200,1700 [facility] Stop: 05/09/25 16:59 Oxycodone HCl (Oxycodone Hcl Ir 5 Mg Tab (Immediate Release)) 10 mg PO Q6H PRN PRN Reason: Severe Pain (Scale 7, 8, 9,10) Stop: 04/23/25 10:01 Last Admin: 04/09/25 10:09 Dose: 10 mg Polyethylene Glycol (Polyethylene (Miralax) 17 Gm Pack) 17 gm PO DAILY PRN PRN Reason: Constipation Stop: 05/07/25 18:33 Potassium Chloride (Potassium Chloride Crtab 20 Meq Tabcr) 20 meq PO [facility] Stop: 05/08/25 08:59 Last Admin: 04/09/25 08:11 Dose: 20 meq Rosuvastatin Calcium (Rosuvastatin Calcium 20 Mg Tab) 20 mg PO [facility] Stop: 05/08/25 08:59 Last Admin: 04/09/25 08:13 Dose: 20 mg Senna/Docusate Sodium (Docusate Sodium/Senna 50/8.6mg Tab) 1 tab [facility] [place] Stop: 05/08/25 08:59 Last Admin: 04/09/25 08:11 Dose: 1 tab Spironolactone (Spironolactone 12.5 Mg Tab) 12.5 mg PO MoWeFr@0900 [facility] Stop: 05/08/25 08:59 Last Admin: 04/08/25 08:16 Dose: 12.5 mg Vitamin D (Cholecalciferol 25 Mcg (1000 Units) Tab) 50 mcg [facility] [place] Stop: 05/08/25 08:59 Last Admin: 04/09/25 08:12 Dose: 50 mcg (5) CKD (chronic kidney disease) stage 3, GFR 30-59 ml/min Chronic kidney disease stage 3 subtype: unspecified whether 3a or 3b Qualified Code(s): N18.30 - Chronic kidney disease, stage 3 unspecified (6) Fall Encounter type: initial encounter Qualified Code(s): W19.XXXA - Unspecified fall, initial encounter
[2025-04-09] MEDS: FUROSEMIDE 40 MG TAB PO SCH (08:11)
[2025-04-09 08:13] LABS: Anion Gap 6.0 (3-11); Blood Urea Nitrogen 26.0 mg/dl (6-23); Calcium 8.7 mg/dl (8.6-10.3); Carbon Dioxide 27.0 mmol/L (21-32); Chloride 102.0 mmol/L (98-107); Creatinine Clr Calc Pharmacy 33.5 ml/min; Glucose 91.0 mg/dl (70-99(Fasting)); Magnesium 1.8 mg/dl (1.7-2.4); Potassium 4.1 mmol/L (3.5-5.1); Sodium 135.0 mmol/L (136-145)
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
--- NOTE | 2025-04-09 11:49 | XRay Report ---
XR femur RT 2V routine CLINICAL HISTORY: pain thigh. recent fall COMPARISON: Pelvis and right hip radiographs April 07, 2025. CT of the abdomen and pelvis March 28, 2025 . FINDINGS: There are no fractures within the right femur. No osseous lesions are noted. Suprapatellar calcific densities are noted. There is no right knee joint effusion. Severe right hip osteoarthritis is present. There are also moderate to severe degenerative changes within the right knee. IMPRESSION: 1. No fractures within the right femur. 2. Severe right hip osteoarthritis. 3. Moderate to severe right knee osteoarthritis. ACT 112: Negative or not required by law. Electronically signed by: Tomas Walker M.D. 04/09/2025 11:47 AM
--- NOTE | 2025-04-09 11:50 | XRay Report ---
XR knee RT 3V CLINICAL HISTORY: h/o fall. Right knee pain, ecchymosis COMPARISON: Right knee radiographs April 07, 2025. FINDINGS: Alignment of the right knee is anatomic with the exception of lateral patellar tilt. There are no fractures within the right knee. There is no right knee joint effusion. Suprapatellar joint s pace calcific densities are present. Severe patellofemoral compartment joint space narrowing is noted . There is moderate lateral compartment joint space narrowing. Tricompartmental osteophytosis is pres ent. IMPRESSION: 1. No fractures within the right knee. No right knee joint effusion. 2. Moderate to severe tricompartmental osteoarthritis of the right knee. ACT 112: Negative or not required by law. Electronically signed by: Tomas Walker M.D. 04/09/2025 11:49 AM
--- NOTE | 2025-04-09 14:47 | XRay Report ---
XR knee LT 3V CLINICAL HISTORY: left knee pain, h/o fall COMPARISON: None FINDINGS: Alignment of the left knee is anatomic. Left knee arthroplasty is intact. There is no shane prosthetic fracture or lucency. No left knee joint effusion is present. Distal aspect of the femoral component of left hip arthroplasty is partially imaged. There is mild infrapatellar soft tissue swell ing. IMPRESSION: 1. Intact total left knee arthroplasty. No periprosthetic fracture or lucency. 2. No left knee joint effusion. 3. Mild infrapatellar soft tissue swelling. ACT 112: Negative or not required by law. Electronically signed by: Tomas Walker M.D. 04/09/2025 2:46 PM
--- NOTE | 2025-04-09 15:13 | Electrocardiogram Report ---
Test Reason : Blood Pressure : */* mmHG Vent. Rate : 77 BPM Atrial Rate : 93 BPM P-R Int : * ms QRS Dur : 138 ms QT Int : 462 ms P-R-T Axes : * 232 82 degrees QTcB Int : 522 ms Ventricular-paced rhythm with occasional Premature ventricular complexes Underlying Atrial fibrillation Biventricular pacemaker detected Abnormal ECG When compared with ECG of 28-Mar-2025 18:55, Vent. rate has increased by 15 bpm Confirmed by Fly Contreras ([id number]) on 04/09/2025 3:13:34 PM Referred By: REFERRED SELF Confirmed By: Fly Contreras
[2025-04-09] MEDS: MIDODRINE HCL 2.5 MG TAB PO SCH (17:34)
[2025-04-09] MEDS: PROMETHAZINE 6.25 MG/50.25 ML BAG IV PRN (18:05)
[2025-04-09] MEDS: MAGNESIUM HYDROXIDE SUSP 30 ML UDC PO PRN (20:00)
[2025-04-10 07:08] LABS: Hematocrit (blood only) 37.3 % (37.0-47.0); Hemoglobin 11.9 g/dl (12.0-16.0); Mean Corpuscular Hemoglobin 28.7 pg (25.0-34.0); Mean Corpuscular Volume 89.9 fL (80.0-100.0); Platelet Count 187 K/uL (130-400); RDW Standard Deviation 63.3 fL (36.4-46.3); Red Blood Count 4.15 M/uL (4.20-5.40); White Blood Count 5.30 K/ul (4.8-10.8)
[2025-04-10 07:29] LABS: Anion Gap 4.0 (3-11); Blood Urea Nitrogen 31.0 mg/dl (6-23); Calcium 8.7 mg/dl (8.6-10.3); Carbon Dioxide 30.0 mmol/L (21-32); Chloride 103.0 mmol/L (98-107); Creatinine Clr Calc Pharmacy 33.9 ml/min; Glucose 80.0 mg/dl (70-99(Fasting)); Magnesium 2.0 mg/dl (1.7-2.4); Potassium 4.3 mmol/L (3.5-5.1); Sodium 137.0 mmol/L (136-145)
--- NOTE | 2025-04-10 10:26 | Hospitalist Progress Note ---
Date of Service April 10, 2025 Assessment & Plan (1) Acute on chronic heart failure with reduced ejection fraction (HFrEF, <= 40%): (2) Chronic atrial fibrillation: (3) Nonischemic cardiomyopathy: (4) Presence of combination internal cardiac defibrillator (ICD) and pacemaker: (5) CKD (chronic kidney disease) stage 3, GFR 30-59 ml/min: (6) Fall: (7) Hypothyroidism: Plan: Patient is 69-year-old female with PMH HTN, HLD, history drug induced cardiomyopathy with HFrEF, s/p ICD 03/2015, history complete heart block s/p pacemaker defibrillator in 05/2018, paroxysmal atrial fibrillation s/p cardioversion 12/23/2014 and 02/22/2018 and now permanent atrial fibrillation, anticoagulated on Eliquis, CKD III, hypothyroidism, Ayomkqb-Jklzz-Fkggk disease, history of breast cancer and others listed below presented to ER on 04/07/25 with complaint of increased shortness of breath, BLE swelling and 5 pound weight gain. #Acute on chronic HFrEF #Nonischemic cardiomyopathy #ICD in place #Chronic atrial fibrillation anticoagulated on Eliquis 10/14/2024 echo: EF: 30-34%, severe diffuse left ventricular hypokinesis, right atrium severely enlarged, mild mitral regurgitation, mild tricuspid regurgitation, mild pulmonary hypertension 04/08/25 echo: EF: 20-25%, diffuse hypokinesis, mild mitral regurgitation, right ventricular systolic function mildly reduced, moderate tricuspid regurgitation, mild pulmonary hypertension Monitor I's and O's, daily weight Patient with continued soft BPs, HR controlled Received IV lasix 40mg x 2 total doses on 04/07 & 04/08 with improvement of BLE edema and dyspnea, orthopnea. 04/09/25 on home Lasix 40mg daily. negative 2000ml balance since admission. Lasix 20mg daily for now and monitor Home metoprolol succinate decreased from 50mg to 25mg BID secondary to soft BP's Continue potassium supplement Continue home Jardiance, metoprolol succinate, Eliquis, spironolactone CBC, CMP, magnesium labs in am Cardiology consulted. * Was concerned about low CO and lactate was ordered and was WNL so not in overt shock. Recommend NPO s/p midnight for Right Heart Catheterization to Confirm hemodynamics tomorrow. Continue Jardiance 10mg qday and Toprol 50mg qday, aldactone 12.5mg every other day * Started 1/2 tab of Entresto 24/26mg BID * if BP drops, add midodrine 10mg TID #Pneumonia Possible Pneumonia right lung CXR: Possible early pneumonia medial right lung base. Procalcitonin was negative Pt denies fever, chills Received Rocephin, doxycycline. Will continue doxycycline. Change to cefuroxime on 04/09/25 Flutter valve, incentive spirometry, Mucinex #Recurrent Falls #Right Femur Fracture Patient reports two mechanical falls in 03/2025 Seen at [facility] ER 03/28/[address] head, CT C-spine at that time Had ongoing right hip, right thigh, bilateral knee pain since fall with difficulty ambulating Noted unsteady gait in ER. Today patient able to actively flex and extend legs in bed which is improvement Hip/pelvis, R knee, Right femur and L knee xrays negative for fracture Venous doppler negative for DVT Continued home oxycodone prn. Pt has only required once a day Today reported continued right thigh pain with weight bearing so CT Hip ordered CT Hip: Acute nondisplaced comminuted fracture of the greater trochanter of the right femur with possible intertrochanteric extension Make pt bedrest Will consult ortho If surgical candidate will need further discussion with cardiology given her cardiac status Hold on further PT/OT eval at this time #CKD III Cr: 1.4. Baseline ~1.3 Monitor renal functions. Avoid nephrotoxic agents when possible #Hypothyroidism Continue levothyroxine DVT Prophylaxis On Eliquis Pt was seen and care coordinated with Dr Mendieta. See addendum I spent a total of 60 minutes reviewing notes, outpatient records, labs, medication, coordinating, documenting and providing care for this patient excluding time spent in the performance of separately billed services and excluding time spent by another provider/QHP. Admission and Anticipated Discharge Date Admission Date: April 07, 2025 Supervising Physician Co-Signing Physician Notes Pt seen and examined by me, care coordinated w/ KEATON Johansen , pls refer to her note above for further detail. Pt is in NAD, awake, alert, answers appropriately. overall feels much better, breathing is better, LE edema much improved/ resolved , still having pain in right thigh. Per PT note pt had pain when standing. XR of R hip, femur, knee obtained and negative -> obtained CT of R hip and thigh today - showing fracture of the greater trochanter of the right femur. Orthopedics consulted. Cardiology following for very low EF and updated about fx as well. MD Gayatri Subjective Patient seen and examined sitting up in bedside chair. States breathing better and denies SOB and reports orthopnea has resolved. Feels like BLE edema is improved also and similar to yesterday. Reports fall several weeks ago and since with extremity pain. On admission patient reported bilateral hip pain and bilateral knee pain and initially had very limited ROM. Initial x-ray hip/pelvis, right femur and bilateral knees negative. Yesterday was able to flex and extend bilateral hips and knees which is improvement from admission however patient continues to report right thigh pain. Pain to right thigh with weight bearing. States bilateral hips and knees are not as painful today but right thigh hurts with ambulation. Today obtained CT hip that showed acute nondisplaced comminuted fracture of the greater trochanter of the right femur with possible intertrochanteric extension. Intermittent non-productive cough. D enies fever/chills, diaphoresis, N/V/D/C, WOOD, dizziness, syncope, palpitations, abdominal pain, rashes, urinary symptoms, extremity paresthesias. Review of Systems Review of Systems: All systems reviewed & are unremarkable except as noted in HPI & below Physical Exam Physical Exam: General: no acute distress, chronic ill appearing elderly female Head: normocephalic, atraumatic Eyes: conjunctiva non-injected, anicteric ENT: normal inspection external ears, nose, mucous membranes moist Neck: supple, trachea midline Lungs: clear, no respiratory distress, no wheezing/rhonchi/rales CV: irregularly irregular, rate 60, trace pretibial edema Abd: normal BS, soft, non-tender Ext: no cyanosis, no calf tenderness. RLE: right hip non-tender to palpation, able to active flex and extend hip. +tenderness to palpation right thigh. Right knee non-tender to palpation and able to flex and extend. Left hip non-tender and able to active flex and extend. +ecchymosis to left anterior knee and tenderness to palpation, able to flex and extend knee. distal pulses palpable, sensation to light touch intact Neuro: A&O x 3, no focal deficits noted, normal affect Skin: warm, dry, +scattered ecchymosis Results & Data Results & Data Vital Signs (Past 12 Hours) Vital Signs Temp Pulse Pulse Resp BP Pulse Ox O2 Del Method 04/10/25 07:40 36.4 C L 59 L 18 93/62 L 97 Room Air 04/10/25 05:34 60 04/10/25 03:05 36.4 C L 61 18 93/60 L 93 Room Air 04/09/25 22:36 36.3 C L 62 18 98/62 L 99 Room Air Laboratory Results Short CBC 04/10/25 Range/Units 06:40 WBC 5.30 (4.8-10.8) K/ul Hgb 11.9 L (12.0-16.0) g/dl Hct 37.3 (37.0-47.0) % Plt Count 187 (130-400) K/uL BMP 04/10/25 06:40 Sodium 137 Potassium 4.3 Chloride 103 Carbon Dioxide 30 BUN 31 H Creatinine 1.44 H Glucose 80 Calcium 8.[address] 04/10/25 11:[address] WITHOUT CONTRAST CLINICAL HISTORY: Right thigh pain. COMPARISON STUDY: Right femur and right knee radiographs April 09, 2025. TECHNIQUE: Axial images of the right femur were obtained without IV contrast. Sagittal and coronal reformats were viewed. A dose lowering technique was utilized adhering to the principles of ALARA. FINDINGS: There is an acute nondisplaced minimally comminuted fracture of the greater trochanter of the right femur. There is possible intertrochanteric extension of the fracture. No additional fractures within the right femur are identified. There is moderate joint space narrowing is severe osteophytosis of the right hip. Moderate to severe tricompartmental osteoarthritis of the right knee is also noted. A right popliteal cyst is incidentally noted. Subcutaneous edema of the lateral right thigh is incidentally noted. IMPRESSION: 1. Acute nondisplaced minimally comminuted fracture of the greater trochanter of the right femur with possible intertrochanteric extension of the fracture. MRI of the right hip could be obtained for further evaluation if indicated. 2. Moderate to severe right hip and right knee osteoarthritis. ACT 112: Negative or not required by law. Electronically signed by: Tomas Walker M.D. 04/10/2025 11:[address] 04/10/25 11:00 CT hip RT wo con CLINICAL HISTORY: Right hip and right thigh pain. COMPARISON STUDY: CT of the abdomen and pelvis January 19, 2025. Right femur radiographs April 09, 2025. TECHNIQUE: Axial images of the right hip were obtained without IV contrast. Sagittal and coronal reformats were viewed. A dose lowering technique was utilized adhering to the principles of ALARA. FINDINGS: There is an acute comminuted nondisplaced fracture of the greater trochanter of the right femur. There is possible intertrochanteric extension. There is moderate joint space narrowing and extensive osteophytosis of the right hip. No additional fractures are identified. Subcutaneous edema of the lateral right thigh is present without well-defined fluid collection. IMPRESSION: 1. Acute nondisplaced comminuted fracture of the greater trochanter of the right femur with possible intertrochanteric extension. MRI of the right hip could be obtained to evaluate for intertrochanteric extension if indicated. 2. Moderate to severe right hip osteoarthritis. ACT 112: Negative or not required by law. Electronically signed by: Tomas Walker M.D. 04/10/2025 11:49 AM (5) CKD (chronic kidney disease) stage 3, GFR 30-59 ml/min Chronic kidney disease stage 3 subtype: unspecified whether 3a or 3b Qualified Code(s): N18.30 - Chronic kidney disease, stage 3 unspecified (6) Fall Encounter type: initial encounter Qualified Code(s): W19.XXXA - Unspecified fall, initial encounter
[2025-04-10] MEDS: METOPROLOL SUCC 25MG EXT REL TAB PO SCH (11:24)
--- NOTE | 2025-04-10 11:42 | Cardiology Progress Note ---
Date of Service April 10, 2025 Assessment & Plan (1) Acute exacerbation of chronic heart failure: Plan: Patient is 69-year-old female with PMH HTN, HLD, history drug induced cardiomyopathy with HFrEF, s/p ICD 03/2015, history complete heart block s/p pacemaker defibrillator in 05/2018, paroxysmal atrial fibrillation s/p cardioversion 12/23/2014 and 02/22/2018 and now permanent atrial fibrillation, anticoagulated on Eliquis, CKD III, hypothyroidism, Mfphxxe-Wvljk-Hevtr disease, history of breast cancer and others listed below presented to ER with acute exacerbation of HFrEF and a reported 5lb weight gain. She was given 40mg IV lasix x 1 in the ED and change to 40mg of PO lasix today. She is not on Entresto/ACEi/ARB due to hypotension. She has experienced tissue weight loss over the last year. NYHA Class IIIb-IV, Stage C-D. 1. Acute Exacerbation of HFrEF -NYHA Class IIIb, Stage C. -although she is warm on exam, given the severity of her cardiomyopathy and low BP I am concerned about low CO -lactate normal; she is not in overt shock. -recommend NPO s/p midnight for Right Heart Catheterization to Confirm hemodynamics tomorrow. -Continue Jardiance 10mg qday and Toprol 50mg qday -aldactone 12.5mg every other day -can try 1/2 tab of Entresto 24/26mg BID (ordered) -if BP drops, add midodrine 10mg TID I provied 55 min of care to the patient in regards to management of HFrEF Admission and Anticipated Discharge Date Admission Date: April 07, 2025 Subjective No chest pain. No N/V/WOOD; afebrile. No PND or orthopnea. LE swelling improved. Review of Systems Review of Systems: A full 10 point review of systems is otherwise negative unless noted above. Physical Exam Physical Exam: GEN: AAOx3; cachexia HEENT: No JVD CV: (+) chronic afib; (+) paced PULM: CTA b/l; no w/r/r ABD: soft; NTND EXT: trace lower extremity edema b/l. Results & Data Vital Signs (Past 12 Hours) Vital Signs Temp Pulse Pulse Resp BP Pulse Ox O2 Del Method 04/10/25 11:05 36.4 C L 60 18 104/72 96 Room Air 04/10/25 07:40 36.4 C L 59 L 18 93/62 L 97 Room Air 04/10/25 05:34 60 04/10/25 03:05 36.4 C L 61 18 93/60 L 93 Room Air Results Complete Blood Count Results: RBC 4.15 M/uL (4.20-5.40) L 04/10/25 WBC 5.30 K/ul (4.8-10.8) 04/10/25 Hgb 11.9 g/dl (12.0-16.0) L 04/10/25 Hct 37.3 % (37.0-47.0) 04/10/25 Plt Count 187 K/uL (130-400) 04/10/25 Results BMP Results: Sodium 137 mmol/L (136-145) 04/10/25 Potassium 4.3 mmol/L (3.5-5.1) 04/10/25 Chloride 103 mmol/L (98-107) 04/10/25 Carbon Dioxide 30 mmol/L (21-32) 04/10/25 Anion Gap 4 (3-11) 04/10/25 BUN 31 mg/dl (6-23) H 04/10/25 Creatinine 1.44 mg/dl (0.6-1.2) H 04/10/25 Glucose 80 mg/dl (70-99(Fasting)) 04/10/25 PG Care Time/CCT Total # of Minutes Spent Total Time Spent with Patient: Total time spent is greater than 50% in coordination of care (as documented) at patient's floor/unit and/or counseling patient: Coding [place] [address] SUB INP/OBS CARE 3/50MIN Patient Type Established History Comprehensive Exam Comprehensive Medical Decision Making High Complexity Diagnoses Acute exacerbation of chronic heart failure I50.9 Time Spent (min) 55 Meds Home Medications and Allergies Home Medications Medication Instructions Recorded Confirmed Type cholecalciferol (vitamin D3) 50 50 mcg PO QAM 11/24/24 04/07/25 History mcg (2,000 unit) tablet (Vitamin D3) empagliflozin 10 mg tablet 10 mg PO QAM 11/24/24 04/07/25 History (Jardiance) levothyroxine 75 mcg tablet 75 mcg PO DAILYBB 11/24/24 04/07/25 History rosuvastatin 20 mg tablet 20 mg PO QAM 11/24/24 04/07/25 History spironolactone 25 mg tablet 12.5 mg PO 3XWK 11/24/24 04/07/25 History escitalopram oxalate 5 mg tablet 5 mg PO QAM 01/19/25 04/07/25 History oxycodone 10 mg tablet 10 mg PO QID PRN Pain 01/19/25 04/07/25 History sennosides 8.6 mg-docusate sodium 1 tab PO QAM 01/19/25 04/07/25 History 50 mg tablet (Senexon-S) apixaban 5 mg tablet (Eliquis) 2.5 mg PO BID 04/07/25 04/07/25 History furosemide 40 mg tablet 40 mg PO QAM 04/07/25 04/07/25 History metoprolol succinate 50 mg 50 mg PO AMHS 04/07/25 04/07/25 History tablet,extended release 24 hr Allergies Allergy/AdvReac Type Severity Reaction Status Date / Time docetaxel Allergy Severe Chest Verified 01/19/25 16:25 pain, syncope, unable to talk, visual disturbances
--- NOTE | 2025-04-10 11:51 | CT Scan Report ---
CT hip RT wo con CLINICAL HISTORY: Right hip and right thigh pain. COMPARISON STUDY: CT of the abdomen and pelvis January 19, 2025. Right femur radiographs April 09, 2025. TECHNIQUE: Axial images of the right hip were obtained without IV contrast. Sagittal and coronal refo rmats were viewed. A dose lowering technique was utilized adhering to the principles of ALARA. FINDINGS: There is an acute comminuted nondisplaced fracture of the greater trochanter of the right f emur. There is possible intertrochanteric extension. There is moderate joint space narrowing and exte nsive osteophytosis of the right hip. No additional fractures are identified. Subcutaneous edema of t he lateral right thigh is present without well-defined fluid collection. IMPRESSION: 1. Acute nondisplaced comminuted fracture of the greater trochanter of the right femur with possible intertrochanteric extension. MRI of the right hip could be obtained to evaluate for intertrochanteric extension if indicated. 2. Moderate to severe right hip osteoarthritis. ACT 112: Negative or not required by law. Electronically signed by: Tomas Walker M.D. 04/10/2025 11:49 AM
--- NOTE | 2025-04-10 11:56 | CT Scan Report ---
RIGHT FEMUR CT WITHOUT CONTRAST CLINICAL HISTORY: Right thigh pain. COMPARISON STUDY: Right femur and right knee radiographs April 09, 2025. TECHNIQUE: Axial images of the right femur were obtained without IV contrast. Sagittal and coronal re formats were viewed. A dose lowering technique was utilized adhering to the principles of ALARA. FINDINGS: There is an acute nondisplaced minimally comminuted fracture of the greater trochanter of t he right femur. There is possible intertrochanteric extension of the fracture. No additional fracture s within the right femur are identified. There is moderate joint space narrowing is severe osteophyto sis of the right hip. Moderate to severe tricompartmental osteoarthritis of the right knee is also no renzo. A right popliteal cyst is incidentally noted. Subcutaneous edema of the lateral right thigh is i ncidentally noted. IMPRESSION: 1. Acute nondisplaced minimally comminuted fracture of the greater trochanter of the right femur with possible intertrochanteric extension of the fracture. MRI of the right hip could be obtained for fur ther evaluation if indicated. 2. Moderate to severe right hip and right knee osteoarthritis. ACT 112: Negative or not required by law. Electronically signed by: Tomas Walker M.D. 04/10/2025 11:54 AM
[2025-04-10] MEDS ORDERED: NALOXONE HCL 0.4 MG/1 ML VIAL/CARP IV PRN (12:28)
[2025-04-10] MEDS: MIDODRINE HCL 2.5 MG TAB PO ONE (12:37)
[2025-04-10] MEDS: FUROSEMIDE 20 MG TAB PO SCH (13:44)
[2025-04-10] MEDS: VALSARTAN/SACUBITRIL 26/24MG TAB PO SCH (13:45)
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
[2025-04-11 06:19] LABS: Hematocrit (blood only) 38.0 % (37.0-47.0); Hemoglobin 12.4 g/dl (12.0-16.0); Mean Corpuscular Hemoglobin 29.3 pg (25.0-34.0); Mean Corpuscular Volume 89.8 fL (80.0-100.0); Platelet Count 183 K/uL (130-400); RDW Standard Deviation 64.9 fL (36.4-46.3); Red Blood Count 4.23 M/uL (4.20-5.40); White Blood Count 5.94 K/ul (4.8-10.8)
[2025-04-11 06:49] LABS: Anion Gap 2.0 (3-11); Blood Urea Nitrogen 34.0 mg/dl (6-23); Calcium 8.7 mg/dl (8.6-10.3); Carbon Dioxide 33.0 mmol/L (21-32); Chloride 101.0 mmol/L (98-107); Creatinine Clr Calc Pharmacy 30.1 ml/min; Glucose 79.0 mg/dl (70-99(Fasting)); Magnesium 2.3 mg/dl (1.7-2.4); Potassium 4.9 mmol/L (3.5-5.1); Sodium 136.0 mmol/L (136-145)
--- NOTE | 2025-04-11 07:53 | Hospitalist Progress Note ---
Date of Service April 11, 2025 Assessment & Plan (1) Acute on chronic heart failure with reduced ejection fraction (HFrEF, <= 40%): (2) Chronic atrial fibrillation: (3) Nonischemic cardiomyopathy: (4) Presence of combination internal cardiac defibrillator (ICD) and pacemaker: (5) CKD (chronic kidney disease) stage 3, GFR 30-59 ml/min: (6) Fall: Plan Patient is 69-year-old female with PMH HTN, HLD, history drug induced cardiomyopathy with HFrEF, s/p ICD 03/2015, history complete heart block s/p pacemaker defibrillator in 05/2018, paroxysmal atrial fibrillation s/p cardioversion 12/23/2014 and 02/22/2018 and now permanent atrial fibrillation, anticoagulated on Eliquis, CKD III, hypothyroidism, Pmnmtzv-Moewx-Mgoum disease, history of breast cancer and others listed below presented to ER on 04/07/25 with complaint of increased shortness of breath, BLE swelling and 5 pound weight gain. #Acute on chronic HFrEF #Nonischemic cardiomyopathy #ICD in place #Chronic atrial fibrillation anticoagulated on Eliquis 10/14/2024 echo: EF: 30-34%, severe diffuse left ventricular hypokinesis, right atrium severely enlarged, mild mitral regurgitation, mild tricuspid regurgitation, mild pulmonary hypertension 04/08/25 echo: EF: 20-25%, diffuse hypokinesis, mild mitral regurgitation, right ventricular systolic function mildly reduced, moderate tricuspid regurgitation, mild pulmonary hypertension Monitor I's and O's, daily weight Patient with continued soft BPs, HR controlled Received IV lasix 40mg x 2 total doses on 04/07 & 04/08 with improvement of BLE edema and dyspnea, orthopnea. 04/09/25 on home Lasix 40mg daily. negative 2000ml balance since admission. Lasix 20mg daily for now and monitor Home metoprolol succinate decreased from 50mg to 25mg BID secondary to soft BP's potassium supplement on hold due to K, 4.9 Continue home Jardiance, metoprolol succinate, Eliquis, spironolactone Follow cbc, bmp Cardiology consulted. Appreciate their recs * Initially Plan was to undergo RHC; however given other comorbities and eliquis, medical management was recommended * Continue with trial of low dose entresto 24/26mg and midodrine 5mg TID, pt is well known to cardiology colleagues and chronically low bp has limited med titration in the past. * Continue Jardiance 10mg qday and Toprol reduced to 25mg bid, aldactone 12.5mg every other day * Continue eliquis * Discussed plan of care with Dr. Jamil regarding medication adjustments and plan to forgo RHC at this point #Pneumonia Possible Pneumonia right lung CXR: Possible early pneumonia medial right lung base. Procalcitonin was negative Pt denies fever, chills Received Rocephin, doxycycline. Will continue doxycycline. Change to cefuroxime on 04/09/25 to complete curse of 04/14 Flutter valve, incentive spirometry, Mucinex #Recurrent Falls #Right Femur Fracture Patient reports two mechanical falls in 03/2025 Seen at [facility] ER 03/28/[address] head, CT C-spine at that time Had ongoing right hip, right thigh, bilateral knee pain since fall with difficulty ambulating Noted unsteady gait in ER. Today patient able to actively flex and extend legs in bed which is improvement Hip/pelvis, R knee, Right femur and L knee xrays negative for fracture Venous doppler negative for DVT CT Hip on 04/10 due to continued pain showed: Acute nondisplaced comminuted fracture of the greater trochanter of the right femur with possible intertrochanteric extension Orthopedics seen and evaluated and unable to obtain MRI given pacer/defibb * Recommend NWB RLE 2 weeks, possibly 4 * Hip ROM limited to 90 degree flexion or less * PT/OT to determine dispo * Will need f/u in clinic with repeat xrays in 2 weeks #CKD III Cr: 1.5. Baseline ~1.3 Slight increase in cr Monitor renal functions. Avoid nephrotoxic agents when possible #Hypothyroidism Continue levothyroxine DVT Prophylaxis On Eliquis Dispo: PT/OT to re evaluate with new NWB status to RLE, suspect pt to need rehab Pt was seen and care coordinated with Dr Mendieta. See addendum I spent a total of 45 minutes reviewing notes, outpatient records, labs, medication, coordinating, documenting and providing care for this patient excluding time spent in the performance of separately billed services and excluding time spent by another provider/QHP. Admission and Anticipated Discharge Date Admission Date: April 07, 2025 Supervising Physician Co-Signing Physician Notes Pt seen and examined by me, care coordinated w/ B. KEATON Paula , pls refer to her note above for further detail. Pt is in NAD, awake, alert, answers appropriately. overall feels much better, breathing is better, LE edema much improved/ resolved , still having pain in right thigh and found to have fracture of the greater trochanter of the right femur. Orthopedics consulted and recommend nonweightbearing for at least 2 weeks. Cardiology following for very low EF, discussed with, no plan for right heart cath today, cont. current med. management w/ entresto/ midodrine. Cont. to closely monitor. MD Gayatri Subjective Patient was seen and examined in room 289-2. Follow up A/C HFrEF and R intertrochanteric fx. She feels well this morning. She denies any lightheaded, dizzy, chest pain or sob. She also reports, "I have not been out of bed though." currently she denies pain. She reports a BM yesterday and feels on the constipated side. Review of Systems Review of Systems: All systems reviewed & are unremarkable except as noted in HPI & below Physical Exam Physical Exam: Gen: WD/WN, NAD, thin, A&O x3 HEENT: Normocephalic, atraumatic, conjunctivae moist, sclerae anicteric, mucous membranes moist. Lung: Clear to Auscultation bilaterally, no wheezes/rales/rhonchi Heart: Regular rate, regular rhythm, 1/6 BRI, rubs, or gallops Abdomen: Soft, NT, ND +BS x 4 Extremities: No edema Skin: Warm, no rash, negative turgor. Results & Data Results & Data Vital Signs (Past 12 Hours) Vital Signs Temp Pulse Pulse Resp BP Pulse Ox O2 Del Method 04/11/25 07:49 60 04/11/25 07:45 Room Air 04/11/25 07:37 36.4 C L 60 16 80/56 L 97 Room Air 04/11/25 03:09 36.4 C L 62 18 90/53 L 95 Room Air 04/10/25 22:37 36.5 C 64 18 91/55 L 94 Room Air 04/10/25 21:59 61 04/10/25 20:00 Room Air Laboratory Results I have independently reviewed and interpreted patient's cbc, bmp, mag, phos Short CBC 04/11/25 Range/Units 05:25 WBC 5.94 (4.8-10.8) K/ul Hgb 12.4 (12.0-16.0) g/dl Hct 38.0 (37.0-47.0) % Plt Count 183 (130-400) K/uL BMP 04/11/25 05:25 Sodium 136 Potassium 4.9 Chloride 101 Carbon Dioxide 33 H BUN 34 H Creatinine 1.50 H Glucose 79 Calcium 8.7 Medications Administered Current Inpatient Medications Acetaminophen (Acetaminophen 325 Mg Tab) 650 mg PO Q4H PRN PRN Reason: Pain or Fever Stop: 05/07/25 18:33 Apixaban (Apixaban 2.5 Mg Tab) 2.5 mg PO BID [facility] Stop: 05/07/25 20:59 Last Admin: 04/11/25 08:00 Dose: 2.5 mg Bisacodyl (Bisacodyl 10 Mg Supp) 10 mg WA DAILY PRN PRN Reason: Constipation Stop: 05/10/25 12:27 Cefuroxime Axetil (Cefuroxime Axetil 500 Mg Tab) 500 mg PO BID JESS[facility]A Stop: 04/14/25 10:14 Last Admin: 04/11/25 08:00 Dose: 500 mg Doxycycline Hyclate (Doxycycline Hyclate 100 Mg Cap) 100 mg PO BID [facility] Stop: 04/13/25 08:59 Last Admin: 04/11/25 08:00 Dose: 100 mg Empagliflozin (Empagliflozin 10 Mg Tab) 10 mg PO QAM JESSIKA Stop: 05/08/25 08:59 Last Admin: 04/11/25 08:00 Dose: 10 mg Escitalopram Oxalate (Escitalopram Oxalate 10 Mg Tab) 5 mg PO QAM JESSIKA Stop: 05/08/25 08:59 Last Admin: 04/11/25 08:00 Dose: 5 mg Furosemide (Furosemide 20 Mg Tab) 20 mg PO QAM [facility] Stop: 05/10/25 13:04 Last Admin: 04/11/25 08:07 Dose: Not Given Guaifenesin (Guaifenesin 600 Mg Tabcr) 600 mg PO Q12 JESSIKA Stop: 05/08/25 09:04 Last Admin: 04/11/25 08:01 Dose: 600 mg Promethazine HCl (Phenergan) 6.25 mg in 50.25 mls @ 201 mls/hr IV Q6H PRN PRN Reason: Nausea And Vomiting Stop: 05/07/25 18:33 Last Infusion: 04/09/25 18:22 Dose: Infused Levothyroxine Sodium (Levothyroxine Sodium 75 Mcg Tablet) 75 mcg PO DAILYBB [facility] Stop: 05/08/25 06:29 Last Admin: 04/11/25 05:31 Dose: 75 mcg Magnesium Hydroxide (Magnesium Hydroxide Susp 30 Ml Udc) 30 ml PO Q12H PRN PRN Reason: Constipation Stop: 05/07/25 18:33 Last Admin: 04/10/25 20:05 Dose: 30 ml Magnesium Oxide (Magnesium Oxide 400 Mg Tab) 400 mg PO QAM [facility] Stop: 05/08/25 09:14 Last Admin: 04/11/25 08:01 Dose: 400 mg Metoprolol Succinate (Metoprolol Succ 50mg Ext Rel Tab) 50 mg PO AMHS [facility] Stop: 05/07/25 20:59 Last Admin: 04/10/25 08:35 Dose: Not Given Metoprolol Succinate (Metoprolol Succ 25mg Ext Rel Tab) 25 mg PO BID [facility] Stop: 05/10/25 09:29 Last Admin: 04/11/25 08:05 Dose: Not Given Midodrine (Midodrine Hcl 2.5 Mg Tab) 5 mg PO TID@0800,1200,1700 [facility] Stop: 05/11/25 07:59 Naloxone HCl (Naloxone Hcl 0.4 Mg/1 Ml Vial/Carp) 0.1 mg IV UD PRN PRN Reason: Opiate Overdose Stop: 05/10/25 12:27 Oxycodone HCl (Oxycodone Hcl Ir 5 Mg Tab (Immediate Release)) 10 mg PO Q6H PRN PRN Reason: Severe Pain (Scale 7, 8, 9,10) Stop: 04/23/25 10:01 Last Admin: 04/11/25 05:36 Dose: 10 mg Polyethylene Glycol (Polyethylene (Miralax) 17 Gm Pack) 17 gm PO DAILY [facility] Stop: 05/12/25 08:59 Potassium Chloride (Potassium Chloride Crtab 20 Meq Tabcr) 20 meq PO QAM [facility] Stop: 05/08/25 08:59 Last Admin: 04/11/25 08:00 Dose: 20 meq Rosuvastatin Calcium (Rosuvastatin Calcium 20 Mg Tab) 20 mg PO QAM [facility] Stop: 05/08/25 08:59 Last Admin: 04/11/25 08:01 Dose: 20 mg Sacubitril/Valsartan (Valsartan/Sacubitril 26/24mg Tab) 0.5 tab PO BID [facility] Stop: 05/10/25 11:44 Last Admin: 04/11/25 08:01 Dose: 0.5 tab Senna/Docusate Sodium (Docusate Sodium/Senna 50/8.6mg Tab) 1 tab PO QAM [facility] Stop: 05/08/25 08:59 Last Admin: 04/11/25 08:01 Dose: 1 tab Spironolactone (Spironolactone 12.5 Mg Tab) 12.5 mg PO MoWeFr@0900 [facility] Stop: 05/08/25 08:59 Last Admin: 04/11/25 08:01 Dose: 12.5 mg Vitamin D (Cholecalciferol 25 Mcg (1000 Units) Tab) 50 mcg PO QAM [facility] Stop: 05/08/25 08:59 Last Admin: 04/11/25 08:00 Dose: 50 mcg (5) CKD (chronic kidney disease) stage 3, GFR 30-59 ml/min Chronic kidney disease stage 3 subtype: unspecified whether 3a or 3b Q ualified Code(s): N18.30 - Chronic kidney disease, stage 3 unspecified (6) Fall Encounter type: initial encounter Qualified Code(s): W19.XXXA - Unspecified fall, initial encounter
[2025-04-11] MEDS ORDERED: FUROSEMIDE 20 MG TAB PO SCH (09:00)
--- NOTE | 2025-04-11 10:38 | Orthopedic Progress Note ---
Date of Service April 11, 2025 Assessment & Plan (1) Closed right hip fracture: Plan Patient discussed with Dr. rOozco. She has persistent right anterior and lateral hip pain after a fall a little over 2 weeks ago. X-ray and CT images were reviewed. Fracture about the greater trochanter is appreciated. Difficult to ascertain if the fracture extends through however given patient's presentation with persistent pain 2 weeks after the fall, significant pain with passive range of motion, pain at rest, severe pain with weightbearing, and distribution of pain, concerned that the fracture does extend all the way through the femur. Unable to obtain MRI given history of pacemaker/defibrillator. With this in mind, we will treat this injury as an intertrochanteric fracture and have the patient remain completely nonweightbearing on the right lower extremity for the next 2 weeks, possibly 4 weeks. This will need to be accomplished with a walker or platform walker. Hip range of motion should be limited to 90 degrees of flexion or less. PT/OT to determine whether the patient can be discharged home versus requiring rehab/[facility]. Pain management and anticoagulation per primary service. Ice to R hip as needed for pain or swelling. 2-week follow-up appointment in our office with repeat x-rays has been scheduled All of this was explained to the patient and she expressed understanding. Will sign off for now, please tiger text with any questions or concerns Admission and Anticipated Discharge Date Admission Date: April 07, 2025 Subjective She was seen this morning bedside. She says she is overall doing well. She was having pain in her hip reported a 10 out of 10 and received pain medication and now has 6 out of 10 pain. She denies any numbness or tingling or any calf pain. She says that her heel was bothering her and they put a pad over it. It feels better now. She says she is getting some cardiac procedure done today. Physical Exam Physical Exam: No deformity noted with the patient's leg. She has some tenderness over the l ateral aspect of her hip. No groin pain to the touch. She is able to fully wiggle her toes and dorsiflex and plantarflex her ankle. She struggles with this at baseline but is able to do which she normally does. 2+ dorsal pedal pulses present. Sensation intact distally to light touch. Results & Data Vital Signs (Past 12 Hours) Vital Signs Temp Pulse Pulse Resp BP Pulse Ox O2 Del Method 04/11/25 08:05 88/51 L 04/11/25 07:49 60 04/11/25 07:45 Room Air 04/11/25 07:37 36.4 C L 60 16 80/56 L 97 Room Air 04/11/25 03:09 36.4 C L 62 18 90/53 L 95 Room Air 04/10/25 22:37 36.5 C 64 18 91/55 L 94 Room Air (1) Closed right hip fracture Encounter type: initial encounter Qualified Code(s): S72.001A - Fracture of unspecified part of neck of right femur, initial encounter for closed fracture
--- NOTE | 2025-04-11 10:57 | Cardiology Progress Note ---
Date of Service April 11, 2025 Assessment & Plan (1) Acute exacerbation of chronic heart failure: (2) Atrial fibrillation: (3) Fall: (4) Closed right hip fracture: Plan Patient is 69-year-old female with PMH HTN, HLD, history drug induced cardiomyopathy with HFrEF, history complete heart block s/p pacemaker defibrillator in 05/2018 most recent generator change 05/14/24, paroxysmal atrial fibrillation s/p cardioversion 12/23/2014 and 02/22/2018 and now permanent atrial fibrillation, anticoagulated on Eliquis, CKD III, hypothyroidism, Hdbbyab-Jogoc-Rksux disease, history of breast cancer presented to ER with acute exacerbation of HFrEF and a reported 5lb weight gain with noted recent dyspnea on exertion, lower extremity edema. Transthoracic echocardiogram performed this admission 04/29 revealed ongoing severe left ventricular systolic dysfunction, LVEF in the range of 20-25%, with diffuse left ventricular hypokinesis. Mild mitral regurgitation. Moderate tricuspid regurgitation, pulmonary artery systolic pressure estimated to be 42 mmHg. Ejection fraction 30-34% on most recent prior echo performed at an outpatient in October,. She also describes two recent mechanical fall episodes in March 2025. She typically walks without assistance in her home and with a cane when she leaves the house. Since the most recent fall she has had progressive pain in her right hip limiting her walking to a few steps due to pain. She has been found to have an intertrochanteric fracture possibly extending to the femur. She was given 40mg IV lasix x 1 in the ED. She is not on Entresto/ACEi/ARB due to hypotension. She has experienced tissue weight loss over the last year. NYHA Class IIIb-IV, Stage C-D. 1. Acute Exacerbation of HFrEF -NYHA Class IIIb, Stage C. -Appears clinically improved today. Warm and dry on exam. LE edema resolved. -Reduce oral furosemide to 20 mg. -Continue with trial of low dose entresto 24/26 mg , 1/2 tab daily (held am of 04/11/25 due to low BP). -Has chronically low blood pressure which has limited past attempts of medication titration. -Continue midodrine 5 mg PO TID -Eliquis 2.5 mg BID for stroke prevention in the setting of permanent AF. -Jardiance 10 mg daily -metoprolol succinate dose reduced to 25 mg BID for now. -Spironolactone 12.5 mg on , Fri, Fridays only -Creatinine has slightly trended up to 1.5 mg /dl will follow -Hold off on right hear catheterization for now. Advance diet. 2. Right trochanteric fracture, mechanical falls -Orthopedic input noted and appreciated. Plan is for 2 weeks of bedrest (Possibly 4 weeks). Case discussed with the patient's nurse, and Debra Paula PA-C for the purpose of Coordination of care. Tanja Jamil DO Admission and Anticipated Discharge Date Admission Date: April 07, 2025 Subjective Mrs Doherty was seen in cardiology follow up. She was lying supine at the time of my arrival with no orthopnea. Notes right hip pain is controlled well sedentary in bed. Review of Systems Review of Systems: A full 10 point review of systems is otherwise negative unless noted above. Physical Exam Constitutional: WD/WN, vitals as above + thin; not in distress Eyes: PERRL, conjunctivae normal, anicteric sclerae Cardiovascular: Rate/Rhythm: regular rhythm Heart Sounds: + murmur (1/6 systolic murmur) Extremities: no edema Chest (Breasts): Additional Comments: Left infraclavicular AICD pocket, clean dry and intact, no erythema Gastrointestinal (Abdomen): normal bowel sounds, soft, nontender, no hepatosplenomegaly Neurologic: PERRL, EOMI, accommodation nl, no face palsy, no dysarthria Results & Data Vital Signs (Past 12 Hours) Vital Signs Temp Pulse Pulse Resp BP Pulse Ox O2 Del Method 04/11/25 08:05 88/51 L 04/11/25 07:49 60 04/11/25 07:45 Room Air 04/11/25 07:37 36.4 C L 60 16 80/56 L 97 Room Air 04/11/25 03:09 36.4 C L 62 18 90/53 L 95 Room Air 04/10/25 22:37 36.5 C 64 18 91/55 L 94 Room Air Laboratory Results CBC 04/11/25 Range/Units 05:25 WBC 5.94 (4.8-10.8) K/ul RBC 4.23 (4.20-5.40) M/uL Hgb 12.4 (12.0-16.0) g/dl Hct 38.0 (37.0-47.0) % Plt Count 183 (130-400) K/uL Comprehensive Metabolic Panel 04/11/25 Range/Units 05:25 Sodium 136 (136-145) mmol/L Potassium 4.9 (3.5-5.1) mmol/L Chloride 101 (98-107) mmol/L Carbon Dioxide 33 H (21-32) mmol/L BUN 34 H (6-23) mg/dl Creatinine 1.50 H (0.6-1.2) mg/dl Glucose 79 (70-99(Fasting)) mg/dl Calcium 8.7 (8.6-10.3) mg/dl Intake and Output 04/10/25 04/11/25 04/11/25 22:59 06:59 14:59 Intake Total 240 / 600 Output Total 201 / 751 300 / 751 Balance 39 / -151 -300 / -151 Intake: Oral 240 / 600 Output: Urine Amount (Catheter) 200 / 750 300 / 750 External 200 / 750 300 / 750 # Bowel Movements Other: Other Intake Source npo Weight 62.6 kg Weight Measurement Method Built in [facility] PG Care Time/CCT Total # of Minutes Spent Total Time Spent with Patient: Total time spent is greater than 50% in coordination of care (as documented) at patient's floor/unit and/or counseling patient: Coding [place] [address] SUB INP/OBS CARE 3/50MIN Patient Type Established History Detailed Exam Detailed Medical Decision Making High Complexity Diagnoses Acute exacerbation of chronic heart failure I50.9 Permanent atrial fibrillation I48.21 Atrial fibrillation type: permanent Fall W19.XXXA Encounter type: initial encounter Closed fracture of right hip, initial encounter S72.001A Encounter type: initial encounter (2) Atrial fibrillation Atrial fibrillation type: permanent Qualified Code(s): I48.21 - Permanent atrial fibrillation (3) Fall Encounter type: initial encounter Qualified Code(s): W19.XXXA - Unspecified fall, initial encounter (4) Closed right hip fracture Encounter type: initial encounter Qualified Code(s): S72.001A - Fracture of unspecified part of neck of right femur, initial encounter for closed fracture
[2025-04-11] MEDS: MIDODRINE HCL 2.5 MG TAB PO SCH (13:47)
[2025-04-12] MEDS: SODIUM CHLORIDE 0.9% 250 ML IV ONE (03:13)
[2025-04-12] MEDS: ACETAMINOPHEN 1,000 MG/100 ML VIAL IV STA (04:49)
[2025-04-12] MEDS: POLYETHYLENE (MIRALAX) 17 GM PACK PO SCH (09:04)
[2025-04-12 09:25] LABS: Hematocrit (blood only) 38.9 % (37.0-47.0); Hemoglobin 12.7 g/dl (12.0-16.0); Mean Corpuscular Hemoglobin 29.1 pg (25.0-34.0); Mean Corpuscular Volume 89.2 fL (80.0-100.0); Platelet Count 193 K/uL (130-400); RDW Standard Deviation 63.2 fL (36.4-46.3); Red Blood Count 4.36 M/uL (4.20-5.40); White Blood Count 7.00 K/ul (4.8-10.8)
[2025-04-12 09:43] LABS: Anion Gap 2.0 (3-11); Blood Urea Nitrogen 32.0 mg/dl (6-23); Calcium 8.5 mg/dl (8.6-10.3); Carbon Dioxide 28.0 mmol/L (21-32); Chloride 105.0 mmol/L (98-107); Creatinine Clr Calc Pharmacy 34.0 ml/min; Glucose 99.0 mg/dl (70-99(Fasting)); Magnesium 2.3 mg/dl (1.7-2.4); Potassium 5.0 mmol/L (3.5-5.1); Sodium 135.0 mmol/L (136-145)
--- NOTE | 2025-04-12 11:45 | Hospitalist Progress Note ---
Date of Service April 12, 2025 Assessment & Plan (1) Acute on chronic heart failure with reduced ejection fraction (HFrEF, <= 40%): (2) Chronic atrial fibrillation: (3) Nonischemic cardiomyopathy: (4) Presence of combination internal cardiac defibrillator (ICD) and pacemaker: (5) CKD (chronic kidney disease) stage 3, GFR 30-59 ml/min: Plan Patient is 69-year-old female with PMH HTN, HLD, history drug induced cardiomyopathy with HFrEF, s/p ICD 03/2015, history complete heart block s/p pacemaker defibrillator in 05/2018, paroxysmal atrial fibrillation s/p cardioversion 12/23/2014 and 02/22/2018 and now permanent atrial fibrillation, anticoagulated on Eliquis, CKD III, hypothyroidism, Glitpep-Xxdbm-Kwlry disease, history of breast cancer and others listed below presented to ER on 04/07/25 with complaint of increased shortness of breath, BLE swelling and 5 pound weight gai n. #Acute on chronic HFrEF #Nonischemic cardiomyopathy #ICD in place #Chronic atrial fibrillation anticoagulated on Eliquis 10/14/2024 echo: EF: 30-34%, severe diffuse left ventricular hypokinesis, right atrium severely enlarged, mild mitral regurgitation, mild tricuspid regurgitation, mild pulmonary hypertension 04/08/25 echo: EF: 20-25%, diffuse hypokinesis, mild mitral regurgitation, right ventricular systolic function mildly reduced, moderate tricuspid regurgitation, mild pulmonary hypertension Monitor I's and O's, daily weight Patient with continued soft BPs, HR controlled Received IV lasix 40mg x 2 total doses on 04/07 & 04/08 with improvement of BLE edema and dyspnea, orthopnea. 04/09/25 on home Lasix 40mg daily. negative 2000ml balance since admission. Lasix 20mg daily for now and monitor Home metoprolol succinate decreased from 50mg to 25mg BID secondary to soft BP's potassium supplement on hold due to K, 5.0 Continue home Jardiance, metoprolol succinate, Eliquis, spironolactone Follow cbc, bmp Cardiology consulted. Appreciate their recs * Initially Plan was to undergo RHC; however given other comorbities and eliquis, medical management was recommended * Continue with trial of low dose entresto 24/26mg and midodrine 5mg TID, pt is well known to cardiology colleagues and chronically low bp has limited med t itration in the past. * Continue Jardiance 10mg qday and Toprol reduced to 25mg bid, aldactone 12.5mg every other day * Continue eliquis * Holding lasix today due to relative hypotension and pt euvolemic on exam #Pneumonia Possible Pneumonia right lung CXR: Possible early pneumonia medial right lung base. Procalcitonin was negative Pt denies fever, chills Received Rocephin, doxycycline. Will continue doxycycline. Change to cefuroxime on 04/09/25 to complete course of 04/14 Flutter valve, incentive spirometry, Mucinex #Recurrent Falls #Right Femur Fracture Patient reports two mechanical falls in 03/2025 Seen at [facility] ER 03/28/[address] head, CT C-spine at that time Had ongoing right hip, right thigh, bilateral knee pain since fall with difficulty ambulating Noted unsteady gait in ER. Today patient able to actively flex and extend legs in bed which is improvement Hip/pelvis, R knee, Right femur and L knee xrays negative for fracture Venous doppler negative for DVT CT Hip on 04/10 due to continued pain showed: Acute nondisplaced comminuted fracture of the greater trochanter of the right femur with possible intertrochanteric extension Orthopedics seen and evaluated and unable to obtain MRI given pacer/defibb * Recommend NWB RLE 2 weeks, possibly 4 * Hip ROM limited to 90 degree flexion or less * PT/OT to determine dispo * Will need f/u in clinic with repeat xrays in 2 weeks #CKD III Cr: 1.46. Baseline ~1.3 Slight increase in cr Monitor renal functions. Avoid nephrotoxic agents when possible #Hypothyroidism Continue levothyroxine DVT Prophylaxis On Eliquis Dispo: Rehab referrals placed, pt wishes for [facility] but unsure if will accept given current functional status, pt currently deciding on SNF referrals, not yet medically stable from a cardiology perspective for discharge Pt was seen and care coordinated with Dr Mendieta. See addendum I spent a total of 44 minutes reviewing notes, outpatient records, labs, medication, coordinating, documenting and providing care for this patient excluding time spent in the performance of separately billed services and excluding time spent by another provider/QHP. Admission and Anticipated Discharge Date Admission Date: April 07, 2025 Supervising Physician Co-Signing Physician Notes Pt seen and examined by me, care coordinated w/ B. KEATON Paula , pls refer to her note above for further detail. Pt is in NAD, awake, alert, answers appropriately. overall feels much better, breathing is better, LE edema much but today reports some R knee pain. Previously reported pain in right thigh and found to have fracture of the greater trochanter of the right femur. Orthopedics consulted and recommend nonweightbearing for at least 2 weeks. Cardiology following for very low EF, discussed with, med. management- initiated entresto/ midodrine. Cont. to closely monitor. MD Gayatri Subjective Patient was seen and examined in room 289-2. Follow up A/C HFrEF and R intertrochanteric fx. She is complaining of R knee pain this morning. Nurse at [facility] reports SBP in 80s this a.m. She discussed with cardiology who wanted lasix held. Denies f/c/s, chest pain, sob, n/v/d. Review of Systems Review of Systems: All systems reviewed & are unremarkable except as noted in HPI & below Physical Exam Physical Exam: Gen: WD/WN, NAD, thin, A&O x3 HEENT: Normocephalic, atraumatic, conjunctivae moist, sclerae anicteric, mucous membranes moist. Lung: Clear to Auscultation bilaterally, no wheezes/rales/rhonchi Heart: Regular rate, regular rhythm, 1/6 BRI, rubs, or gallops Abdomen: Soft, NT, ND +BS x 4 Extremities: No edema, R knee lateral effusion, tender to touch Skin: Warm, no rash, negative turgor. Results & Data Results & Data Vital Signs (Past 12 Hours) Vital Signs Temp Pulse Pulse Resp BP Pulse Ox O2 Del Method 04/12/25 11:01 36.5 C 63 16 101/72 98 Room Air 04/12/25 10:07 92/59 L 04/12/25 10:01 Room Air 04/12/25 07:49 80/44 L 04/12/25 07:35 37.1 C 60 16 85/52 L 94 Room Air 04/12/25 07:00 60 04/12/25 04:32 63 98/63 L 04/12/25 04:01 61 92/59 L 04/12/25 03:39 60 78/48 L 04/12/25 03:38 60 80/53 L 04/12/25 02:45 36.7 C 59 L 18 83/43 L 95 Room Air 04/11/25 23:55 60 90/51 L Laboratory Results I have independently reviewed and interpreted patient' cbc, bmp, mag, phos Short CBC 04/12/25 Range/Units 08:49 WBC 7.00 (4.8-10.8) K/ul Hgb 12.7 (12.0-16.0) g/dl Hct 38.9 (37.0-47.0) % Plt Count 193 (130-400) K/uL BMP 04/12/25 08:49 Sodium 135 L Potassium 5.0 Chloride 105 Carbon Dioxide 28 BUN 32 H Creatinine 1.46 H Glucose 99 Calcium 8.5 L Medications Administered Current Inpatient Medications Acetaminophen (Acetaminophen 325 Mg Tab) 650 mg PO Q4H PRN PRN Reason: Pain or Fever Stop: 05/07/25 18:33 Apixaban (Apixaban 2.5 Mg Tab) 2.5 mg PO BID JESSIKA Stop: 05/07/25 20:59 Last Admin: 04/12/25 08:59 Dose: 2.5 mg Bisacodyl (Bisacodyl 10 Mg Supp) 10 mg SD DAILY PRN PRN Reason: Constipation Stop: 05/10/25 12:27 Cefuroxime Axetil (Cefuroxime Axetil 500 Mg Tab) 500 mg PO BID JESSIKA Stop: 04/14/25 10:14 Last Admin: 04/12/25 08:57 Dose: 500 mg Doxycycline Hyclate (Doxycycline Hyclate 100 Mg Cap) 100 mg PO BID JESSIKA Stop: 04/13/25 08:59 Last Admin: 04/12/25 08:58 Dose: 100 mg Empagliflozin (Empagliflozin 10 Mg Tab) 10 mg PO QAM JESSIKA Stop: 05/08/25 08:59 Last Admin: 04/12/25 09:01 Dose: 10 mg Escitalopram Oxalate (Escitalopram Oxalate 10 Mg Tab) 5 mg PO QAM JESSIKA Stop: 05/08/25 08:59 Last Admin: 04/12/25 09:02 Dose: 5 mg Furosemide (Furosemide 20 Mg Tab) 20 mg PO QAM JESSIKA Stop: 05/10/25 13:04 Last Admin: 04/12/25 09:02 Dose: Not Given Guaifenesin (Guaifenesin 600 Mg Tabcr) 600 mg PO Q12 [facility] Stop: 05/08/25 09:04 Last Admin: 04/12/25 09:01 Dose: 600 mg Promethazine HCl (Phenergan) 6.25 mg in 50.25 mls @ 201 mls/hr IV Q6H PRN PRN Reason: Nausea And Vomiting Stop: 05/07/25 18:33 Last Infusion: 04/09/25 18:22 Dose: Infused Levothyroxine Sodium (Levothyroxine Sodium 75 Mcg Tablet) 75 mcg PO DAILYBB [facility] Stop: 05/08/25 06:29 Last Admin: 04/12/25 05:28 Dose: 75 mcg Magnesium Hydroxide (Magnesium Hydroxide Susp 30 Ml Udc) 30 ml PO Q12H PRN PRN Reason: Constipation Stop: 05/07/25 18:33 Last Admin: 04/10/25 20:05 Dose: 30 ml Magnesium Oxide (Magnesium Oxide 400 Mg Tab) 400 mg PO QAM [facility] Stop: 05/08/25 09:14 Last Admin: 04/12/25 08:59 Dose: 400 mg Metoprolol Succinate (Metoprolol Succ 50mg Ext Rel Tab) 50 mg PO AMHS [facility] Stop: 05/07/25 20:59 Last Admin: 04/10/25 08:35 Dose: Not Given Metoprolol Succinate (Metoprolol Succ 25mg Ext Rel Tab) 25 mg PO BID [facility] Stop: 05/10/25 09:29 Last Admin: 04/12/25 08:58 Dose: 25 mg Midodrine (Midodrine Hcl 2.5 Mg Tab) 5 mg PO TID@0800,1200,1700 [facility] Stop: 05/11/25 07:59 Last Admin: 04/12/25 11:47 Dose: 5 mg Naloxone HCl (Naloxone Hcl 0.4 Mg/1 Ml Vial/Carp) 0.1 mg IV UD PRN PRN Reason: Opiate Overdose Stop: 05/10/25 12:27 Oxycodone HCl (Oxycodone Hcl Ir 5 Mg Tab (Immediate Release)) 5 mg PO Q6H PRN PRN Reason: Severe Pain (Scale 7, 8, 9,10) Stop: 04/23/25 10:01 Last Admin: 04/12/25 10:17 Dose: 5 mg Polyethylene Glycol (Polyethylene (Miralax) 17 Gm Pack) 17 gm PO DAILY JESSIKA Stop: 05/12/25 08:59 Last Admin: 04/12/25 09:04 Dose: 17 gm Potassium Chloride (Potassium Chloride Crtab 20 Meq Tabcr) 20 meq PO QAM JESSIKA Stop: 05/08/25 08:59 Last Admin: 04/11/25 08:00 Dose: 20 meq Rosuvastatin Calcium (Rosuvastatin Calcium 20 Mg Tab) 20 mg PO QAM JESSIKA Stop: 05/08/25 08:59 Last Admin: 04/12/25 08:57 Dose: 20 mg Sacubitril/Valsartan (Valsartan/Sacubitril 26/24mg Tab) 0.5 tab PO BID JESSIKA Stop: 05/10/25 11:44 Last Admin: 04/12/25 08:57 Dose: 0.5 tab Senna/Docusate Sodium (Docusate Sodium/Senna 50/8.6mg Tab) 1 tab PO QAM JESSIKA Stop: 05/08/25 08:59 Last Admin: 04/12/25 09:04 Dose: 1 tab Spironolactone (Spironolactone 12.5 Mg Tab) 12.5 mg PO MoWeFr@0900 JESSIKA Stop: 05/08/25 08:59 Last Admin: 04/11/25 08:01 Dose: 12.5 mg Trolamine Salicylate (Trolamine Salicylate 10% Crm 255 Appln/85 Gm Tube) 1 appln EXT TID [facility] Stop: 05/12/25 13:59 Vitamin D (Cholecalciferol 25 Mcg (1000 Units) Tab) 50 mcg PO QAM JESSIKA Stop: 05/08/25 08:59 Last Admin: 04/12/25 08:59 Dose: 50 mcg (5) CKD (chronic kidney disease) stage 3, GFR 30-59 ml/min Chronic kidney disease stage 3 subtype: unspecified whether 3a or 3b Qualified Code(s): N18.30 - Chronic kidney disease, stage 3 unspecified
--- NOTE | 2025-04-12 12:12 | Cardiology Progress Note ---
Date of Service April 12, 2025 Assessment & Plan (1) Acute exacerbation of chronic heart failure: (2) Atrial fibrillation: (3) Fall: (4) Closed right hip fracture: Plan Patient is 69-year-old female with PMH HTN, HLD, history drug induced cardiomyopathy with HFrEF, history complete heart block s/p pacemaker defibrillator in 05/2018 most recent generator change 05/14/24, paroxysmal atrial fibrillation s/p cardioversion 12/23/2014 and 02/22/2018 and now permanent atrial fibrillation, anticoagulated on Eliquis, CKD III, hypothyroidism, Vcboofd-Wnsiu-Esskj disease, history of breast cancer presented to ER with acute exacerbation of HFrEF and a reported 5lb weight gain with noted recent dyspnea on exertion, lower extremity edema. Transthoracic echocardiogram performed this admission 04/29 revealed ongoing severe left ventricular systolic dysfunction, LVEF in the range of 20-25%, with diffuse left ventricular hypokinesis. Mild mitral regurgitation. Moderate tricuspid regurgitation, pulmonary artery systolic pressure estimated to be 42 mmHg. Ejection fraction 30-34% on most recent prior echo performed at an outpatient in October,. She also describes two recent mechanical fall episodes in March 2025. She typically walks without assistance in her home and with a cane when she leaves the house. Since the most recent fall she has had progressive pain in her right hip limiting her walking to a few steps due to pain. She has been found to have an intertrochanteric fracture possibly extending to the femur. She was given 40mg IV lasix x 1 in the ED. She is not on Entresto/ACEi/ARB due to hypotension. She has experienced tissue weight loss over the last year. NYHA Class IIIb-IV, Stage C-D. 1. Acute Exacerbation of HFrEF -NYHA Class IIIb, Stage C. -Appears clinically improved today. Warm and dry on exam. LE edema resolved. -Hold furosemide 20 mg today, 04/12. -Continue with trial of low dose Entresto 24/26 mg , 1/2 tab daily (held am of 04/11/25 due to low BP). -Has chronically low blood pressure which has limited past attempts of medication titration. -Continue midodrine 5 mg PO TID -Eliquis 2.5 mg BID for stroke prevention in the setting of permanent AF. -Jardiance 10 mg daily -metoprolol succinate dose reduced to 25 mg BID for now. -Spironolactone 12.5 mg on , Fri, Fridays only -Creatinine stable on 04/11. 2. Right trochanteric fracture, mechanical falls -Orthopedic input noted and appreciated. Plan is for 2 weeks of bedrest (Possibly 4 weeks). Tanja Jamil DO Admission and Anticipated Discharge Date Admission Date: April 07, 2025 Subjective Patient notes right hip and right knee pain today. Denies shortness of breath. Telemetry reveals ventricular paced rhythm in the 60s (underlying AF). Physical Exam Constitutional: WD/WN, vitals as above + thin; not in distress Eyes: PERRL, conjunctivae normal, anicteric sclerae Cardiovascular: Rate/Rhythm: regular rhythm Heart Sounds: + murmur (1/6 systolic murmur) Extremities: no edema Gastrointestinal (Abdomen): normal bowel sounds, soft, nontender, no hepatosplenomegaly Neurologic: PERRL, EOMI, accommodation nl, no face palsy, no dysarthria Results & Data Vital Signs (Past 12 Hours) Vital Signs Temp Pulse Pulse Resp BP Pulse Ox O2 Del Method 04/12/25 11:01 36.5 C 63 16 101/72 98 Room Air 04/12/25 10:07 92/59 L 04/12/25 10:01 Room Air 04/12/25 07:49 80/44 L 04/12/25 07:35 37.1 C 60 16 85/52 L 94 Room Air 04/12/25 07:00 60 04/12/25 04:32 63 98/63 L 04/12/25 04:01 61 92/59 L 04/12/25 03:39 60 78/48 L 04/12/25 03:38 60 80/53 L 04/12/25 02:45 36.7 C 59 L 18 83/43 L 95 Room Air Laboratory Results CBC 04/12/25 Range/Units 08:49 WBC 7.00 (4.8-10.8) K/ul RBC 4.36 (4.20-5.40) M/uL Hgb 12.7 (12.0-16.0) g/dl Hct 38.9 (37.0-47.0) % Plt Count 193 (130-400) K/uL Comprehensive Metabolic Panel 07/08/25 Range/Units 08:49 Sodium 135 L (136-145) mmol/L Potassium 5.0 (3.5-5.1) mmol/L Chloride 105 (98-107) mmol/L Carbon Dioxide 28 (21-32) mmol/L BUN 32 H (6-23) mg/dl Creatinine 1.46 H (0.6-1.2) mg/dl Glucose 99 (70-99(Fasting)) mg/dl Calcium 8.5 L (8.6-10.3) mg/dl PG Care Time/CCT Total # of Minutes Spent Total Time Spent with Patient: Total time spent is greater than 50% in coordination of care (as documented) at patient's floor/unit and/or counseling patient: Coding [place] [address] SUB INP/OBS CARE 350MIN Patient Type Established History Detailed Exam Detailed Medical Decision Making Moderate Complexity Diagnoses Acute exacerbation of chronic heart failure I50.9 Permanent atrial fibrillation I48.21 Atrial fibrillation type: permanent Fall W19.XXXA Encounter type: initial encounter Closed fracture of right hip, initial encounter S72.001A Encounter type: initial encounter (2) Atrial fibrillation Atrial fibrillation type: permanent Qualified Code(s): I48.21 - Permanent atrial fibrillation (3) Fall Encounter type: initial encounter Qualified Code(s): W19.XXXA - Unspecified fall, initial encounter (4) Closed right hip fracture Encounter type: initial encounter Qualified Code(s): S72.001A - Fracture of unspecified part of neck of right femur, initial encounter for closed fracture
[2025-04-12] MEDS: TROLAMINE SALICYLATE 10% CRM 255 APPLN/85 GM TUBE EXT SCH (13:59)
[2025-04-12] MEDS: ACETAMINOPHEN 325 MG TAB PO PRN (16:45)
[2025-04-13 05:56] LABS: Hematocrit (blood only) 36.1 % (37.0-47.0); Hemoglobin 12.0 g/dl (12.0-16.0); Mean Corpuscular Hemoglobin 29.3 pg (25.0-34.0); Mean Corpuscular Volume 88.3 fL (80.0-100.0); Platelet Count 182 K/uL (130-400); RDW Standard Deviation 62.3 fL (36.4-46.3); Red Blood Count 4.09 M/uL (4.20-5.40); White Blood Count 6.67 K/ul (4.8-10.8)
[2025-04-13 06:15] LABS: Anion Gap 3.0 (3-11); Blood Urea Nitrogen 35.0 mg/dl (6-23); Calcium 8.4 mg/dl (8.6-10.3); Carbon Dioxide 28.0 mmol/L (21-32); Chloride 105.0 mmol/L (98-107); Creatinine Clr Calc Pharmacy 35.8 ml/min; Glucose 101.0 mg/dl (70-99(Fasting)); Magnesium 2.2 mg/dl (1.7-2.4); Potassium 4.4 mmol/L (3.5-5.1); Sodium 136.0 mmol/L (136-145)
--- NOTE | 2025-04-13 09:49 | Orthopedic Progress Note ---
Date of Service April 13, 2025 Assessment & Plan (1) Closed right hip fracture: Plan: Per previous notes, this is being treated nonoperatively as a possible complete intertrochanteric fracture. Nonweightbearing right lower extremity for the next 2 weeks, possibly 4 weeks. This will need to be accomplished with a walker or a platform walker. Hip range of motion should be limited to 90 degrees of flexion or less. PT/OT Pain management anticoagulation per primary service. Ice to the right hip as needed for pain or swelling. 2-week follow-up in our office with repeat x-rays has been scheduled. (2) Effusion, right knee: Plan: Patient describes right knee pain after a fall several weeks ago which seemed to improve a bit and has worsened over the past few days with an increase in swelling. Her exam does reveal a 2+ effusion and diffuse anterior tenderness. X-rays were reviewed which had been obtained 04/09/2025 (4 days ago) showing moderate to severe tricompartment arthritis with no fracture. Possible arthritis flare, possible gout/pseudogout, could be secondary to recent injury. No evidence of infection. Patient on eliquis so unable to use assisted NSAIDs Reviewed with Dr. Orozco, agreeable with aspiration and possible injection depending on fluid appearance. Patient in agreement. Right knee aspiration procedure: Verbal consent was obtained after discussing the risks and benefits. Patient name date of was confirmed. Right knee was identified and confirmed to be the correct knee. An indent was made in the skin at the site of the aspiration site. Skin was cleansed with Betadine which was allowed to dry. An 18-gauge needle was inserted in the superior lateral portal and 30 cc of yellow cloudy fluid was aspirated. Decided not to inject the knee due to the cloudy fluid appearance. Needle was removed and hemostasis was achieved. A Band-Aid was applied. The knee was wrapped with an Jaime wrap for light compression. Patient tolerated procedure well. Synovial fluid will be sent to the lab for cell count, culture, crystal analysis, Lyme analysis. 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 Results will guide possible injection either this afternoon or tomorrow. Patient may feel better just getting the fluid aspirated. Can apply ice to the knee. Admission and Anticipated Discharge Date Admission Date: April 07, 2025 Pavel Devries is seen in bed this morning. Our service was contacted again due to complaints of right knee pain. Patient states that the right knee was bothering her after her second fall a few weeks ago and seemed to improve a bit, but over the past few days it has been bothering her again and she thinks it is more swollen than it normally is. The pain hurts across the front of the knee and she has pain when trying to bend it. It was not bothering her this much before the fall. No fevers or chills. No history of gout or pseudogout. Physical Exam Constitutional: Resting comfortably in bed. In no distress. Musculoskeletal: Right lower extremity: Knee with 2+ effusion and warmth but no redness. There is tenderness in bilateral joint lines as well as overlying the patella. Range of motion limited secondary to pain and swelling. Results & Data Vital Signs (Past 12 Hours) Vital Signs Temp Pulse Pulse Resp BP Pulse Ox O2 Del Method 04/13/25 07:42 98.1 F 59 L 18 84/48 L 95 Room Air 04/13/25 07:23 90/58 L 04/13/25 05:36 60 04/13/25 02:46 98.4 F 63 16 89/57 L 94 Room Air 04/13/25 00:28 60 04/12/25 23:52 98.2 F 61 16 92/52 L 94 Room Air Diagnostic Findings XR knee RT 3V CLINICAL HISTORY: h/o fall. Right knee pain, ecchymosis COMPARISON: Right knee radiographs April 07, 2025. FINDINGS: Alignment of the right knee is anatomic with the exception of lateral patellar tilt. There are no fractures within the right knee. There is no right knee joint effusion. Suprapatellar joint space calcific densities are present. Severe patellofemoral compartment joint space narrowing is noted. There is moderate lateral compartment joint space narrowing. Tricompartmental osteophytosis is present. IMPRESSION: 1. No fractures within the right knee. No right knee joint effusion. 2. Moderate to severe tricompartmental osteoarthritis of the right knee. ACT 112: Negative or not required by law. Electronically signed by: Tomas Walker M.D. 04/09/2025 11:49 AM (1) Closed right hip fracture Encounter type: initial encounter Qualified Code(s): S72.001A - Fracture of unspecified part of neck of right femur, initial encounter for closed fracture
[2025-04-13] MEDS: dexAMETHasone**PF** 10 MG/ML VIAL INJ ONE (11:41)
[2025-04-13] MEDS: LIDOCAINE 1% LOCAL 20 ML VIAL INJ ONE (11:41)
--- NOTE | 2025-04-13 11:56 | Cardiology Progress Note ---
Date of Service April 13, 2025 Assessment & Plan (1) Acute exacerbation of chronic heart failure: (2) Atrial fibrillation: (3) Fall: (4) Closed right hip fracture: Plan Patient is 69-year-old female with PMH HTN, HLD, history drug induced cardiomyopathy with HFrEF, history complete heart block s/p pacemaker defibrillator in 05/2018 most recent generator change 05/14/24, paroxysmal atrial fibrillation s/p cardioversion 12/23/2014 and 02/22/2018 and now permanent atrial fibrillation, anticoagulated on Eliquis, CKD III, hypothyroidism, Euukcri-Hukyf-Vbtim disease, history of breast cancer presented to ER with acute exacerbation of HFrEF and a reported 5lb weight gain with noted recent dyspnea on exertion, lower extremity edema. Transthoracic echocardiogram performed this admission 04/29 revealed ongoing severe left ventricular systolic dysfunction, LVEF in the range of 20-25%, with diffuse left ventricular hypokinesis. Mild mitral regurgitation. Moderate tricuspid regurgitation, pulmonary artery systolic pressure estimated to be 42 mmHg. Ejection fraction 30-34% on most recent prior echo performed at an outpatient in October,. She also describes two recent mechanical fall episodes in March 2025. She typically walks without assistance in her home and with a cane when she leaves the house. Since the most recent fall she has had progressive pain in her right hip limiting her walking to a few steps due to pain. She has been found to have an intertrochanteric fracture possibly extending to the femur. She was given 40mg IV lasix x 1 in the ED. She is not on Entresto/ACEi/ARB due to hypotension. She has experienced tissue weight loss over the last year. NYHA Class IIIb-IV, Stage C-D. 1. Acute Exacerbation of HFrEF -NYHA Class IIIb, Stage C. -LE edema resolved. -Discontinue trial of Enstresto. Do not think she will tolerated this from a blood pressure perspective -Spironolactone held 04/13, administered furosemide 20 mg PO. -Has chronically low blood pressure which has limited past attempts of medication titration. -Continue midodrine 5 mg PO TID -Eliquis 2.5 mg BID for stroke prevention in the setting of permanent AF. -Jardiance 10 mg daily -metoprolol succinate dose reduced to 25 mg BID for now. -Creatinine stable / improving. -await results of fluid analysis of arthrocentesis. 2. Right trochanteric fracture, mechanical falls -Orthopedic input noted and appreciated. Plan is for 2 weeks of bedrest (Possibly 4 weeks). Tanja Jamil DO Admission and Anticipated Discharge Date Admission Date: April 07, 2025 Subjective Patient seen in follow up. Notes respiratory status is stable. Remains on bed rest. Had arthrocentesis of right knee effusion of 7/8 with resultant pain relief. Telemetry reveals ventricular paced rhythm in the 60s. Physical Exam Constitutional: WD/WN, vitals as above + thin; not in distress Eyes: PERRL, conjunctivae normal, anicteric sclerae Cardiovascular: Rate/Rhythm: regular rhythm Heart Sounds: + murmur (1/6 systolic murmur) Extremities: no edema Gastrointestinal (Abdomen): normal bowel sounds, soft, nontender, no hepatosplenomegaly Neurologic: PERRL, EOMI, accommodation nl, no face palsy, no dysarthria Results & Data Vital Signs (Past 12 Hours) Vital Signs Temp Pulse Pulse Resp BP Pulse Ox O2 Del Method 04/13/25 07:42 36.7 C 59 L 18 84/48 L 95 Room Air 04/13/25 07:23 90/58 L 04/13/25 05:36 60 04/13/25 02:46 36.9 C 63 16 89/57 L 94 Room Air 04/13/25 00:28 60 04/12/25 23:52 36.8 C 61 16 92/52 L 94 Room Air PG Care Time/CCT Total # of Minutes Spent Total Time Spent with Patient: Total time spent is greater than 50% in coordination of care (as documented) at patient's floor/unit and/or counseling patient: Coding Level of Care Code 25984 SUB INP/OBS CARE 3/50MIN Diagnoses Acute exacerbation of chronic heart failure I50.9 Permanent atrial fibrillation I48.21 Atrial fibrillation type: permanent Fall W19.XXXA Encounter type: initial encounter Closed fracture of right hip, initial encounter S72.001A Encounter type: initial encounter (2) Atrial fibrillation Atrial fibrillation type: permanent Qualified Code(s): I48.21 - Permanent atrial fibrillation (3) Fall Encounter type: initial encounter Qualified Code(s): W19.XXXA - Unspecified fall, initial encounter (4) Closed right hip fracture Encounter type: initial encounter Qualified Code(s): S72.001A - Fracture of unspecified part of neck of right femur, initial encounter for closed fracture
[2025-04-13 11:58] LABS: Color Synovial Fluid Yellow; Mononuclear WBC Synovial 6.4 %; Polynuclear WBC Synovial 93.6 %; RBC Synovial Fluid Auto 3000 /uL; Source Synovial Fluid Right Knee; WBC Synovial Fluid Auto 35775 /ul (0-200)
--- NOTE | 2025-04-13 14:44 | Hospitalist Progress Note ---
Date of Service April 13, 2025 Assessment & Plan (1) Acute on chronic heart failure with reduced ejection fraction (HFrEF, <= 40%): (2) Chronic atrial fibrillation: (3) Nonischemic cardiomyopathy: (4) Presence of combination internal cardiac defibrillator (ICD) and pacemaker: (5) CKD (chronic kidney disease) stage 3, GFR 30-59 ml/min: Plan Patient is 69-year-old female with PMH HTN, HLD, history drug induced cardiomyopathy with HFrEF, s/p ICD 03/2015, history complete heart block s/p pacemaker defibrillator in 05/2018, paroxysmal atrial fibrillation s/p cardioversion 12/23/2014 and 02/22/2018 and now permanent atrial fibrillation, anticoagulated on Eliquis, CKD III, hypothyroidism, Qvtaril-Hatgc-Klmpg disease, history of breast cancer and others listed below presented to ER on 04/07/25 with complaint of increased shortness of breath, BLE swelling and 5 pound weight gai n. #Acute on chronic HFrEF #Nonischemic cardiomyopathy #ICD in place #Chronic atrial fibrillation anticoagulated on Eliquis 10/14/2024 echo: EF: 30-34%, severe diffuse left ventricular hypokinesis, right atrium severely enlarged, mild mitral regurgitation, mild tricuspid regurgitation, mild pulmonary hypertension 04/08/25 echo: EF: 20-25%, diffuse hypokinesis, mild mitral regurgitation, right ventricular systolic function mildly reduced, moderate tricuspid regurgitation, mild pulmonary hypertension Monitor I's and O's, daily weight Patient with continued soft BPs, HR controlled Received IV lasix 40mg x 2 total doses on 04/07 & 04/08 with improvement of BLE edema and dyspnea, orthopnea. 04/09/25 on home Lasix 40mg daily. negative 2000ml balance since admission. Lasix 20mg daily for now and monitor Home metoprolol succinate decreased from 50mg to 25mg BID secondary to soft BP's Continue home Jardiance, metoprolol succinate, Eliquis, spironolactone Follow cbc, bmp Cardiology consulted. Appreciate their recs * Initially Plan was to undergo RHC; however given other comorbities and eliquis, medical management was recommended * Trialed entresto low dose but unable to tolerate due to hypotension * Continue with trial of midodrine 5mg TID, pt is well known to cardiology colleagues and chronically low bp has limited med titration in the past. * Continue Jardiance 10mg qday and Toprol reduced to 25mg bid, aldactone 12.5mg every other day * Continue eliquis * received lasix today, aldactone held (Lasix held 04/12) * Will resume KCL now that off entresto and kcl improved (KCL held for 2 days due to K of 5.0) #Pneumonia Possible Pneumonia right lung CXR: Possible early pneumonia medial right lung base. Procalcitonin was negative Pt denies fever, chills Received Rocephin, doxycycline. Will continue doxycycline. Change to cefuroxime on 04/09/25 to complete course of 04/14 Flutter valve, incentive spirometry, Mucinex #Recurrent Falls #Right Femur Fracture Patient reports two mechanical falls in 03/2025 Seen at [facility] ER 03/28/[address] head, CT C-spine at that time Had ongoing right hip, right thigh, bilateral knee pain since fall with d ifficulty ambulating Noted unsteady gait in ER. Today patient able to actively flex and extend legs in bed which is improvement Hip/pelvis, R knee, Right femur and L knee xrays negative for fracture Venous doppler negative for DVT CT Hip on 04/10 due to continued pain showed: Acute nondisplaced comminuted fracture of the greater trochanter of the right femur with possible intertrochanteric extension Orthopedics seen and evaluated and unable to obtain MRI given pacer/defibb * Recommend NWB RLE 2 weeks, possibly 4 * Hip ROM limited to 90 degree flexion or less * PT/OT to determine dispo * Will need f/u in clinic with repeat xrays in 2 weeks * #R knee pain pt with moderate lateral R knee effusion noted on 04/12, ortho notified aspiration of effusion done today, culture pending, negative for gout/ps eudogout, wbc 35k pt already on cefuroxime, doxy for PNA await culture #CKD III Cr: 1.3. Baseline ~1.3 Slight increase in cr Monitor renal functions. Avoid nephrotoxic agents when possible #Hypothyroidism Continue levothyroxine DVT Prophylaxis On Eliquis Dispo: Rehab referrals placed, pt wishes for [facility]; however currently denied, awaiting call back for P2P but suspect will be denied, she does have approval for SNF auth; however pt reluctant at this time Pt was seen and care coordinated with Dr Alvarez. See addendum I spent a total of 45 minutes reviewing notes, outpatient records, labs, medication, coordinating, documenting and providing care for this patient excluding time spent in the performance of separately billed services and excluding time spent by another provider/QHP. Admission and Anticipated Discharge Date Admission Date: April 07, 2025 Supervising Physician Co-Signing Physician Notes Patient is seen and examined at bedside. States having right knee pain with effusion. Discussed with orthopedics, plan for right knee arthrocentesis today. Patient also had transient dizziness this morning. Still has minimal cough but otherwise no other complaints. Physical Exam: Vitals signs as noted above General Appearance:Moderately built and nourished, no apparent distress Head: normocephalic, Atraumatic Eyes: normal inspection, left eye artificial; right pupil irregular-- baseline per patient Neck: supple, Trachea midline Respiratory/Chest: Normal breath sounds, CTA, No accessory muscle use Cardiovascular: S1, S2, +murmur Abdomen/GI:Soft, Non tender, Bowel sounds present Extremities/Musculoskeletal:normal inspection, right knee swelling, tender Neurologic/Psych:AAOX3, grossly no focal neurological deficits Skin: normal color, warm Acute on chronic heart failure with reduced ejection fraction Nonischemic cardiomyopathy Unable to tolerate Entresto due to hypotension Continue midodrine, Jardiance, metoprolol succinate, Aldactone, Lasix Appreciate cardiology input Monitor renal function, electrolytes, volume status Community-acquired pneumonia Continue antibiotics Saturating well on room air Right knee effusion Right hip fracture Follow-up synovial fluid studies/culture Orthopedics following--appreciate help Continue PT OT I personally interviewed and examined the patient at bedside. I have reviewed the advanced practitioner's documentation on the date of service referred in note and agree with plan. Patient's care is coordinated with Debra Long. Please refer to the documentation above for details of patient's presentation and for discussion of other issues. I spent a total [id number] coordinating, documenting, and providing care for this patient excluding time spent in the performance of separately billed services or time spent by another provider/QHP. Subjective Pt was seen and examined in room 289-2. She felt lightheaded this a.m. and therefore was laying flat. Denies f/c/s, chest pain, sob, n/v. She still has pain to lateral R knee, feels rub is helping. Review of Systems Review of Systems: All systems reviewed & are unremarkable except as noted in HPI & below Physical Exam Physical Exam: Gen: WD/WN, NAD, thin, A&O x3 HEENT: Normocephalic, atraumatic, conjunctivae moist, sclerae anicteric, mucous membranes moist. Lung: Clear to Auscultation bilaterally, no wheezes/rales/rhonchi Heart: Regular rate, regular rhythm, 1/6 BRI, rubs, or gallops Abdomen: Soft, NT, ND +BS x 4 Extremities: No edema, R knee lateral effusion, tender to touch Skin: Warm, no rash, negative turgor. Results & Data Results & Data Vital Signs (Past 12 Hours) Vital Signs Temp Pulse Pulse Resp BP Pulse Ox O2 Del Method 04/13/25 14:24 Room Air 04/13/25 13:02 60 04/13/25 12:25 36.7 C 60 18 88/56 L 96 Room Air 04/13/25 07:42 36.7 C 59 L 18 84/48 L 95 Room Air 04/13/25 07:23 90/58 L 04/13/25 05:36 60 04/13/25 02:46 36.9 C 63 16 89/57 L 94 Room Air Medications Administered Current Inpatient Medications Acetaminophen (Acetaminophen 325 Mg Tab) 650 mg PO Q4H PRN PRN Reason: Pain or Fever Stop: 05/07/25 18:33 Last Admin: 04/12/25 16:45 Dose: 650 mg Apixaban (Apixaban 2.5 Mg Tab) 2.5 mg PO BID PENDING SALE TO [facility] Stop: 05/07/25 20:59 Last Admin: 04/13/25 09:07 Dose: 2.5 mg Bisacodyl (Bisacodyl 10 Mg Supp) 10 mg [place] DAILY PRN PRN Reason: Constipation Stop: 05/10/25 12:27 Cefuroxime Axetil (Cefuroxime Axetil 500 Mg Tab) 500 mg PO BID PENDING SALE TO [facility] Stop: 04/14/25 10:14 Last Admin: 04/13/25 09:09 Dose: 500 mg Empagliflozin (Empagliflozin 10 Mg Tab) 10 mg PO QAM PENDING SALE TO [facility] Stop: 05/08/25 08:59 Last Admin: 04/13/25 09:07 Dose: 10 mg Escitalopram Oxalate (Escitalopram Oxalate 10 Mg Tab) 5 mg PO QAM PENDING SALE TO [facility] Stop: 05/08/25 08:59 Last Admin: 04/13/25 09:11 Dose: 5 mg Furosemide (Furosemide 20 Mg Tab) 20 mg PO QAM PENDING SALE TO [facility] Stop: 05/10/25 13:04 Last Admin: 04/13/25 09:06 Dose: 20 mg Guaifenesin (Guaifenesin 600 Mg Tabcr) 600 mg PO Q12 PENDING SALE TO [facility] Stop: 05/08/25 09:04 Last Admin: 04/13/25 09:08 Dose: 600 mg Promethazine HCl (Phenergan) 6.25 mg in 50.25 mls @ 201 mls/hr IV Q6H PRN PRN Reason: Nausea And Vomiting Stop: 05/07/25 18:33 Last Infusion: 04/09/25 18:22 Dose: Infused Levothyroxine Sodium (Levothyroxine Sodium 75 Mcg Tablet) 75 mcg PO DAILYBB PENDING SALE TO [facility] Stop: 05/08/25 06:29 Last Admin: 04/13/25 06:04 Dose: 75 mcg Magnesium Hydroxide (Magnesium Hydroxide Susp 30 Ml Udc) 30 ml PO Q12H PRN PRN Reason: Constipation Stop: 05/07/25 18:33 Last Admin: 04/13/25 14:00 Dose: 30 ml Magnesium Oxide (Magnesium Oxide 400 Mg Tab) [facility] Stop: 05/08/25 09:14 Last Admin: 04/13/25 09:08 Dose: 400 mg Metoprolol Succinate (Metoprolol Succ 25mg Ext Rel Tab) 25 mg PO BID PENDING SALE TO [facility] Stop: 05/10/25 09:29 Last Admin: 04/13/25 09:10 Dose: 25 mg Midodrine (Midodrine Hcl 2.5 Mg Tab) 5 mg PO TID@0800,1200,1700 PENDING SALE TO [facility] Stop: 05/11/25 07:59 Last Admin: 04/13/25 12:30 Dose: 5 mg Naloxone HCl (Naloxone Hcl 0.4 Mg/1 Ml Vial/Carp) 0.1 mg IV UD PRN PRN Reason: Opiate Overdose Stop: 05/10/25 12:27 Oxycodone HCl (Oxycodone Hcl Ir 5 Mg Tab (Immediate Release)) 5 mg PO Q6H PRN PRN Reason: Severe Pain (Scale 7, 8, 9,10) Stop: 04/23/25 10:01 Last Admin: 04/13/25 09:27 Dose: 5 mg Polyethylene Glycol (Polyethylene (Miralax) 17 Gm Pack) 17 gm PO DAILY PENDING SALE TO [facility] Stop: 05/12/25 08:59 Last Admin: 04/13/25 09:17 Dose: Not Given Potassium Chloride (Potassium Chloride Crtab 20 Meq Tabcr) 20 meq [facility] [place] Stop: 05/08/25 08:59 Last Admin: 04/11/25 08:00 Dose: 20 meq Rosuvastatin Calcium (Rosuvastatin Calcium 20 Mg Tab) 20 mg PO QAM PENDING SALE TO [facility] Stop: 05/08/25 08:59 Last Admin: 04/13/25 09:08 Dose: 20 mg Senna/Docusate Sodium (Docusate Sodium/Senna 50/8.6mg Tab) 1 tab PO QAM PENDING SALE TO [facility] Stop: 05/08/25 08:59 Last Admin: 04/13/25 09:22 Dose: 1 tab Spironolactone (Spironolactone 12.5 Mg Tab) 12.5 mg PO MoWeFr@0900 PENDING SALE TO [facility] Stop: 05/08/25 08:59 Last Admin: 04/13/25 08:39 Dose: Not Given Trolamine Salicylate (Trolamine Salicylate 10% Crm 255 Appln/85 Gm Tube) 1 appln EXT TID PENDING SALE TO [facility] Stop: 05/12/25 13:59 Last Admin: 04/13/25 14:37 Dose: 1 appln Vitamin D (Cholecalciferol 25 Mcg (1000 Units) Tab) 50 mcg PO QAM PENDING SALE TO [facility] Stop: 05/08/25 08:59 Last Admin: 04/13/25 09:07 Dose: 50 mcg (5) CKD (chronic kidney disease) stage 3, GFR 30-59 ml/min Chronic kidney disease stage 3 subtype: unspecified whether 3a or 3b Qualified Code(s): N18.30 - Chronic kidney disease, stage 3 unspecified
[2025-04-13] MEDS ORDERED: MICONAZOLE NITRATE POWDER 85 GM EXT PRN (21:31)
[2025-04-14] MEDS: MIDODRINE HCL 2.5 MG TAB PO STA (03:12)
--- NOTE | 2025-04-14 09:09 | Orthopedic Progress Note ---
"Date of Service April 14, 2025 Assessment & Plan (1) Closed right hip fracture: Plan: Comminuted greater trochanter fracture of the right hip with possible extension into the intertrochanteric region. MRI unable to be performed due to having a Cardiac defibrillator. Will continue conservative treatment plan. Nonweightbearing right lower extremity for the next 2 weeks, possibly 6 weeks. Use walker to assist with ambulation. Hip range of motion should be limited to 90 degrees of flexion or less. PT/OT Pain management anticoagulation per primary service. Ice to the right hip as needed for pain or swelling. Will order an repeat x-ray of her right hip to check alignment of fracture for Sunday 04/15. Follow up as outpatient scheduled with [facility]. (2) Effusion, right knee: Plan: Patient has continued right knee pain with return of her effusion. Jaime bandage was present overnight but removed per patient request. Crystal analysis showed rare crystals but not consistent with pseudogout or gout. WBCs was 35,000 suggestive inflammation. She does have underlying osteoarthritis and could just be experiencing an acute flare. Would recommend continuing the nonweightbearing (she already has this limitation due to her hip fracture) Ice to right knee as needed for pain or swelling. X-rays were reviewed which had been obtained 04/09/2025 (4 days ago) showing moderate to severe tricompartment arthritis with no fracture. Patient on eliquis so unable to use retirement NSAIDs Concern for infection based on clinical exam and laboratory findings is low, but informed patient that we will wait another day or two (maybe even until Friday) for finalization of cultures before we do an intra-articular injection. She is agreeable to wait and understands the reason why. No surgical indication at this time. Will re-eval tomorrow daily until cultures finalized. Dr. Orozco present for today's visit and is agreeable with the plan. Admission and Anticipated Discharge Date Admission Date: April 07, 2025 Subjective Patient complaining of continued right knee pain. She states that it is no better but is no worse. She does have underlying osteoarthritis. She states that she has never had treatment for this in the past. She underwent an aspiration yesterday. She requested Jaime bandage to be removed from her knee. Physical Exam Musculoskeletal: Exam of her right knee: She does have some discomfort with passive range of motion. She is unable to do much in the way of active motion with regards to straightening or bending. Her right leg is propped up on a pillow. She has minimal foot and ankle and lower leg. There is a moderate effusion to the right knee. There is no erythema or warmth. Her knee is diffusely tender. She does have mild medial and lateral joint line tenderness. When performing passive range of motion right knee for attempts at active range of motion she also does have pain in the right hip area. Results & Data Vital Signs (Past 12 Hours) Vital Signs Temp Pulse Pulse Resp BP Pulse Ox O2 Del Method 04/14/25 08:03 36.5 C 60 18 97/62 L 97 Room Air 04/14/25 05:56 90/59 L 04/14/25 02:28 36.5 C 59 L 18 88/56 L 97 Room Air 04/13/25 22:52 36.7 C 61 16 91/53 L 96 Room Air 04/13/25 21:56 60 Laboratory Results 04/13/25 10:50 Gram Stain - Final Knee,Right Aerobic and Anaerobic Culture - Pending 04/13/25 10:50 Fluid Comment Synovial Source Right Knee Synovial Color Yellow Synovial Appearance Cloudy Synovial WBC (Auto) 33082 H Synovial RBC (Auto) 3000 Synovial Polynuclear % 93.6 Synovial Mononuclear % 6.4 Synovial Crystals Lyme titer pending Crystal analysis: This synovial fluid from the right knee reveals many | leukocytes and rare red blood cells. Examination under | polarized light reveals scattered fragments of birefringent | crystals which are small, rhomboid in shape, and a few | needle shaped crystals are seen. None of these crystals | reveal negative birefringence as would be seen in gout. As | well, the rare crystals fail to reveal positive | birefringence as would be seen in pseudogout. It would be | interesting to know if this patient's knee was ever injected | with any medicinals. Clinical correlation is required in | this regard. To reiterate, the crystals of gout and | pseudogout are not seen. (1) Closed right hip fracture Encounter type: initial encounter Qualified Code(s): S72.001A - Fracture of unspecified part of neck of right femur, initial encounter for closed fracture"
--- NOTE | 2025-04-14 10:46 | Hospitalist Progress Note ---
Date of Service April 14, 2025 Assessment & Plan (1) Acute on chronic heart failure with reduced ejection fraction (HFrEF, <= 40%): (2) Chronic atrial fibrillation: (3) Nonischemic cardiomyopathy: (4) Presence of combination internal cardiac defibrillator (ICD) and pacemaker: (5) CKD (chronic kidney disease) stage 3, GFR 30-59 ml/min: Plan Patient is 69-year-old female with PMH HTN, HLD, history drug induced cardiomyopathy with HFrEF, s/p ICD 03/2015, history complete heart block s/p pacemaker defibrillator in 05/2018, paroxysmal atrial fibrillation s/p cardioversion 12/23/2014 and 02/22/2018 and now permanent atrial fibrillation, anticoagulated on Eliquis, CKD III, hypothyroidism, Afwxqet-Htlae-Nrcrl disease, history of breast cancer and others listed below presented to ER on 04/07/25 with complaint of increased shortness of breath and was found to have acute exacerbat ion of HFrEF. Acute on chronic HFrEF Nonischemic cardiomyopathy ICD in place Chronic atrial fibrillation anticoagulated on Eliquis 10/14/2024 echo: EF: 30-34%, severe diffuse left ventricular hypokinesis, right atrium severely enlarged, mild mitral regurgitation, mild tricuspid regurgitation, mild pulmonary hypertension 04/08/25 echo: EF: 20-25%, diffuse hypokinesis, mild mitral regurgitation, right ventricular systolic function mildly reduced, moderate tricuspid regurgitation, mild pulmonary hypertension Monitor I's and O's, daily weight Patient with continued soft BPs, HR controlled Received IV lasix 40mg x 2 total doses on 04/07 & 04/08 with improvement of BLE edema and dyspnea, orthopnea. 04/09/25 on home Lasix 40mg daily. negative 2000ml balance since admission Management limited by hypotension- not on Entresto/ACEi/ARB for this reason Appreciate cards input- continue Lasix 20mg daily, reduced Toprol dose of 25mg BID, Jardiance, spironolactone 12.5mg MoWeFr, Eliquis for stroke ppx Hyperkalemia -> resolved KCl had been held for a few days due to K of 5, resumed now that Entresto discontinued Monitor daily BMP Possible Pneumonia right lung CXR: Possible early pneumonia medial right lung base. Procalcitonin was negative Pt denies fever, chills Received Rocephin, doxycycline. Will continue doxycycline. Change to cefuroxime on 04/09/25, completed course today, 04/14 Continue Flutter valve, incentive spirometry, Mucinex Recurrent Falls Right Femur Fracture Patient reports two mechanical falls in 03/2025 Seen at [facility] ER 03/28/[address] head, CT C-spine at that time Had ongoing right hip, right thigh, bilateral knee pain since fall with difficulty ambulating Noted unsteady gait in ER. Today patient able to actively flex and extend legs in bed which is improvement Hip/pelvis, R knee, Right femur and L knee xrays negative for fracture Venous doppler negative for DVT CT Hip on 04/10 due to continued pain showed: Acute nondisplaced comminuted fracture of the greater trochanter of the right femur with possible intertrochanteric extension Orthopedics seen and evaluated and unable to obtain MRI given pacer/defibrillator * Recommend NWB RLE 2-6 weeks, use walker to assist with ambulation * Hip range of motion should be limited to 90 degrees of flexion or less. * PT/OT, analgesics, ice * Will order an repeat x-ray of her right hip to check alignment of fracture for Sunday 04/15. * Follow up as outpatient scheduled with [facility] R knee effusion Noted on 04/12, ortho notified and joint aspirated, WBCs 35K consistent with inflammation, known underlying OA, low concern for infxn but follow cx Awaiting culture results prior to intra-articular joint injection Negative for gout/pseudogout Continue Tylenol, PRN, ice - not a usp nsaid candidate given Eliquis as above Remain NWB RLE, continue ice CKD III Monitor Cr (baseline cr ~1.3) Monitor renal functions. Avoid nephrotoxic agents as able Hypothyroidism Continue levothyroxine DVT Prophylaxis: Eliquis Dispo: Rehab referrals placed, wishes for [facility] but denied. Will not pursue P2P as patient unlikely to benefit from 3 hrs rehab as NWB status. Agreeable to SNF placement as of today Patient seen in collaboration with Dr. Alvraez. I spent a total of 55 minutes coordinating, documenting, and providing care for this patient excluding time spent in the performance of separately billed services or time spent by another provider/QHP. Admission and Anticipated Discharge Date Admission Date: April 07, 2025 Supervising Physician Co-Signing Physician Notes Patient is seen and examined at bedside. Continues to complain of right knee, hip pain. Synovial fluid cultures negative to date. Hip x-ray currently pending. Subjectively feels about the same as yesterday. Physical Exam: Vitals signs as noted above General Appearance:Moderately built and nourished, no apparent distress Head: normocephalic, Atraumatic Eyes: normal inspection, left eye artificial; right pupil irregular-- baseline per patient Neck: supple, Trachea midline Respiratory/Chest: Normal breath sounds, CTA, No accessory muscle use Cardiovascular: S1, S2, +murmur Abdomen/GI:Soft, Non tender, Bowel sounds present Extremities/Musculoskeletal:normal inspection, right knee swelling, tender Neurologic/Psych:AAOX3, grossly no focal neurological deficits Skin: normal color, warm Acute on chronic heart failure with reduced ejection fraction Nonischemic cardiomyopathy Unable to tolerate Entresto due to hypotension Continue midodrine, Jardiance, metoprolol succinate, Aldactone, Lasix Appreciate cardiology input Monitor renal function, electrolytes, volume status Community-acquired pneumonia Completed antibiotic course Saturating well on room air Right knee effusion likely due to osteoarthritis Right hip fracture Follow-up synovial fluid studies/culture No crystals to suggest gout/pseudogout Orthopedics following--appreciate help Continue PT OT, fall precautions Will benefit from SNF placement Hip x-ray pending May need intra-articular injection Continue nonweightbearing right lower extremity. I personally interviewed and examined the patient at bedside. I have reviewed the advanced practitioner's documentation on the date of service referred in note and agree with plan. Patient's care is coordinated with Mavis Hernandez PA-C. Please refer to the documentation above for details of patient's presentation and for discussion of other issues. I spent a total [id number] coordinating, documenting, and providing care for this patient excluding time spent in the performance of separately billed services or time spent by another provider/QHP. Subjective Seen and examined in 289-2. Resting in bed. Having pain at R hip joint from fracture, R knee. Ice is helping. SOB improved, feels she is at baseline. No F/C, CP, N/V, abd pain, dysuria, diarrhea or constipation. Review of Systems Review of Systems: At least ten systems reviewed and negative except as noted in the HPI. Physical Exam Physical Exam: Gen: WD/WN, NAD, resting in bed comfortably, appears chronically ill, A&Ox3 HEENT: Normocephalic, atraumatic, mucous membranes moist, + L eye artificial, R eye pupil irregular (baseline) Lung: Clear to Auscultation bilaterally Heart: Regular rate, regular rhythm Abdomen: Soft, NT, ND +BS x 4 Extremities: R hip joint and prox L leg TTP, R knee with edema, ice in place Skin: Warm, no rash Results & Data Results & Data Vital Signs (Past 12 Hours) Vital Signs Temp Pulse Pulse Resp BP Pulse Ox O2 Del Method 04/14/25 08:03 36.5 C 60 18 97/62 L 97 Room Air 04/14/25 05:59 61 04/14/25 05:56 90/59 L 04/14/25 02:28 36.5 C 59 L 18 88/56 L 97 Room Air 04/13/25 22:52 36.7 C 61 16 91/53 L 96 Room Air Diagnostic Findings Chest X-Ray 04/07/25 15:15 XR chest 1V portable CLINICAL HISTORY: Chest pain, nonspecific COMPARISON STUDY: 03/28/2025 FINDINGS: Stable pacemaker. Stable cardiomegaly without pulmonary vascular congestion. There is an interval small area of patchy opacity medial right lung base. No other consolidation or pleural effusion. No pneumothorax. IMPRESSION: Possible early pneumonia medial right lung base. ACT 112: Negative or not required by law. Electronically signed by: Marvin Bar M.D. 04/07/2025 3:46 PM Hip/Pelvis X-Ray 04/07/25 17:10 EXAMINATION: X-ray hip right 2 view with pelvis CLINICAL HISTORY: Fall PRIORS: CT 01/19/2025 TECHNIQUE: AP view pelvis, 2 views right hip FINDINGS: Left total hip arthroplasty present in unchanged and appearance. [id number] degenerative change of the right hip present with no acute displaced fracture or dislocation. Pubic symphysis is not widened. Obturator rings are unremarkable. Sacroiliac joints are patent. Prominent osteophyte of the superolateral acetabulum and superolateral aspect of the humeral head. No soft tissue abnormality. IMPRESSION: 1. No plain film evidence of an acute osseous abnormality. 2. Advanced degenerative change of the right hip with anatomy that may predispose to femoral acetabular impingement. Electronically signed by Maggie 07-03-2025 7:27 PM Knee X-Ray 04/07/25 17:10 EXAMINATION: X-ray knee right 3 view CLINICAL HISTORY: Fall PRIORS: None TECHNIQUE: Frontal, lateral and patella view. FINDINGS: Moderate osseous demineralization noted. Alignment maintained. Diffuse edema throughout the visualized subcutaneous tissues. Moderate to advanced tricompartmental degenerative change of the right knee with peaking of the tibial spines. No acute or displaced fracture or dislocation. Enthesophytes of the patella noted. No suprapatellar joint effusion. No subcutaneous gas. Moderate lateral patella subluxation. IMPRESSION: 1. No plain film evidence of an acute osseous abnormality. 2. Osseous demineralization with tricompartmental degenerative change and diffuse edema throughout the soft tissues. Electronically signed by Maggie 04-07-2025 7:27 PM Venous Doppler Study 04/08/25 09:45 HISTORY: Bilateral lower extremity swelling. TECHNIQUE: Bilateral lower extremity venous Doppler evaluation for DVT. COMPARISON: None. FINDINGS: The bilateral common femoralVeins, greater saphenous junctions, femoral veins, popliteal veins appear color Doppler patent and compressible. Color Doppler flow is demonstrated in the deep femoral,posterior tibial, peroneal, and anterior tibial veins. Respiratory variation and augmentation is noted. IMPRESSION: No evidence of lower extremity DVT. Electronically signed by Harris Hagan 04-08-2025 3:54 PM Knee X-Ray 04/09/25 09:54 XR knee RT 3V CLINICAL HISTORY: h/o fall. Right knee pain, ecchymosis COMPARISON: Right knee radiographs April 07, 2025. FINDINGS: Alignment of the right knee is anatomic with the exception of lateral patellar tilt. There are no fractures within the right knee. There is no right knee joint effusion. Suprapatellar joint space calcific densities are present. Severe patellofemoral compartment joint space narrowing is noted. There is moderate lateral compartment joint space narrowing. Tricompartmental osteophytosis is present. IMPRESSION: 1. No fractures within the right knee. No right knee joint effusion. 2. Moderate to severe tricompartmental osteoarthritis of the right knee. ACT 112: Negative or not required by law. Electronically signed by: Tomas Walker M.D. 04/09/2025 11:49 AM Femur X-Ray 04/09/25 10:45 XR femur RT 2V routine CLINICAL HISTORY: pain thigh. recent fall COMPARISON: Pelvis and right hip radiographs April 07, 2025. CT of the abdomen and pelvis March 28, 2025. FINDINGS: There are no fractures within the right femur. No osseous lesions are noted. Suprapatellar calcific densities are noted. There is no right knee joint effusion. Severe right hip osteoarthritis is present. There are also moderate to severe degenerative changes within the right knee. IMPRESSION: 1. No fractures within the right femur. 2. Severe right hip osteoarthritis. 3. Moderate to severe right knee osteoarthritis. ACT 112: Negative or not required by law. Electronically signed by: Tomas Walker M.D. 04/09/2025 11:47 AM Knee X-Ray 04/09/25 13:05 XR knee LT 3V CLINICAL HISTORY: left knee pain, h/o fall COMPARISON: None FINDINGS: Alignment of the left knee is anatomic. Left knee arthroplasty is intact. There is no periprosthetic fracture or lucency. No left knee joint effusion is present. Distal aspect of the femoral component of left hip arthroplasty is partially imaged. There is mild infrapatellar soft tissue swelling. IMPRESSION: 1. Intact total left knee arthroplasty. No periprosthetic fracture or lucency. 2. No left knee joint effusion. 3. Mild infrapatellar soft tissue swelling. ACT 112: Negative or not required by law. Electronically signed by: Tomas Walker M.D. 04/09/2025 2:[address] 04/10/25 11:[address] WITHOUT CONTRAST CLINICAL HISTORY: Right thigh pain. COMPARISON STUDY: Right femur and right knee radiographs April 09, 2025. TECHNIQUE: Axial images of the right femur were obtained without IV contrast. Sagittal and coronal reformats were viewed. A dose lowering technique was utilized adhering to the principles of ALARA. FINDINGS: There is an acute nondisplaced minimally comminuted fracture of the greater trochanter of the right femur. There is possible intertrochanteric extension of the fracture. No additional fractures within the right femur are identified. There is moderate joint space narrowing is severe osteophytosis of the right hip. Moderate to severe tricompartmental osteoarthritis of the right knee is also noted. A right popliteal cyst is incidentally noted. Subcutaneous edema of the lateral right thigh is incidentally noted. IMPRESSION: 1. Acute nondisplaced minimally comminuted fracture of the greater trochanter of the right femur with possible intertrochanteric extension of the fracture. MRI of the right hip could be obtained for further evaluation if indicated. 2. Moderate to severe right hip and right knee osteoarthritis. ACT 112: Negative or not required by law. Electronically signed by: Tomas Walker M.D. 04/10/2025 11:[address] 04/10/25 11:00 CT hip RT wo con CLINICAL HISTORY: Right hip and right thigh pain. COMPARISON STUDY: CT of the abdomen and pelvis January 19, 2025. Right femur radiographs April 09, 2025. TECHNIQUE: Axial images of the right hip were obtained without IV contrast. Sagittal and coronal reformats were viewed. A dose lowering technique was utilized adhering to the principles of ALARA. FINDINGS: There is an acute comminuted nondisplaced fracture of the greater trochanter of the right femur. There is possible intertrochanteric extension. There is moderate joint space narrowing and extensive osteophytosis of the right hip. No additional fractures are identified. Subcutaneous edema of the lateral right thigh is present without well-defined fluid collection. IMPRESSION: 1. Acute nondisplaced comminuted fracture of the greater trochanter of the right femur with possible intertrochanteric extension. MRI of the right hip could be obtained to evaluate for intertrochanteric extension if indicated. 2. Moderate to severe right hip osteoarthritis. ACT 112: Negative or not required by law. Electronically signed by: Tomas Walker M.D. 04/10/2025 11:49 AM (5) CKD (chronic kidney disease) stage 3, GFR 30-59 ml/min Chronic kidney disease stage 3 subtype: unspecified whether 3a or 3b Qualified Code(s): N18.30 - Chronic kidney disease, stage 3 unspecified
--- NOTE | 2025-04-14 11:34 | Cardiology Progress Note ---
Date of Service April 14, 2025 Assessment & Plan (1) Acute exacerbation of chronic heart failure: (2) Atrial fibrillation: (3) Fall: (4) Closed right hip fracture: (5) Effusion, right knee: Plan Patient is 69-year-old female with PMH HTN, HLD, history drug induced cardiomyopathy with HFrEF, history complete heart block s/p pacemaker defibrillator in 05/2018 most recent generator change 05/14/24, paroxysmal atrial fibrillation s/p cardioversion 12/23/2014 and 02/22/2018 and now permanent atrial fibrillation, anticoagulated on Eliquis, CKD III, hypothyroidism, Eaigwlo-Bzahm-Mvruh disease, history of breast cancer presented to ER with acute exacerbation of HFrEF and a reported 5lb weight gain with noted recent dyspnea on exertion, lower extremity edema. Transthoracic echocardiogram performed this admission 04/29 revealed ongoing severe left ventricular systolic dysfunction, LVEF in the range of 20-25%, with diffuse left ventricular hypokinesis. Mild mitral regurgitation. Moderate tricuspid regurgitation, pulmonary artery systolic pressure estimated to be 42 mmHg. Ejection fraction 30-34% on most recent prior echo performed at an outpatient in October,. She also describes two recent mechanical fall episodes in March 2025. She typically walks without assistance in her home and with a cane when she leaves the house. Since the most recent fall she has had progressive pain in her right hip limiting her walking to a few steps due to pain. She has been found to have an intertrochanteric fracture possibly extending to the femur. She was given 40mg IV lasix x 1 in the ED. She is not on Entresto/ACEi/ARB due to hypotension. She has experienced tissue weight loss over the last year. NYHA Class IIIb-IV, Stage C-D. 1. Acute Exacerbation of HFrEF -NYHA Class IIIb, Stage C. -LE edema resolved. -Trial of Entresto was discontinued due to hypotension. -Continue metoprolol succinate 25 mg twice daily, Jardiance 10 mg daily, furosemide 20 mg p.o. daily, spironolactone 12.5 mg 3 days/week on Wednesdays and Fridays. -Continue Eliquis for stroke prophylaxis 2. Right trochanteric fracture, mechanical falls Right knee effusion Orthopedic input noted and appreciated. Arthrocentesis fluid consistent with inflammation but not gout or pseudogout. Agree the patient is not a good candidate for nonsteroidal anti-inflammatory therapy. Continue ice. Nonweightbearing status For right trochanteric fracture planned for 2 to 4 weeks. Tanja Jamil DO Admission and Anticipated Discharge Date Admission Date: April 07, 2025 Subjective Patient seen in cardiology follow-up. Notes no orthopnea. Telemetry reveals ventricular paced rhythm in the 60s. Right knee is swollen again status post arthrocentesis. Physical Exam Constitutional: WD/WN, vitals as above + thin; not in distress Eyes: PERRL, conjunctivae normal, anicteric sclerae Cardiovascular: Rate/Rhythm: regular rhythm Heart Sounds: + murmur (1/6 systolic murmur) Extremities: no edema Gastrointestinal (Abdomen): normal bowel sounds, soft, nontender, no hepatosplenomegaly Neurologic: PERRL, EOMI, accommodation nl, no face palsy, no dysarthria Results & Data Vital Signs (Past 12 Hours) Vital Signs Temp Pulse Pulse Resp BP Pulse Ox O2 Del Method 04/14/25 11:25 36.7 C 60 18 97/60 L 98 Room Air 04/14/25 08:03 36.5 C 60 18 97/62 L 97 Room Air 04/14/25 05:59 61 04/14/25 05:56 90/59 L 04/14/25 02:28 36.5 C 59 L 18 88/56 L 97 Room Air PG Care Time/CCT Total # of Minutes Spent Total Time Spent with Patient: Total time spent is greater than 50% in coordination of care (as documented) at patient's floor/unit and/or counseling patient: Coding Level of Care Code 83840 SUB INP/OBS CARE 3/50MIN Diagnoses Acute exacerbation of chronic heart failure I50.9 Permanent atrial fibrillation I48.21 Atrial fibrillation type: permanent Fall W19.XXXA Encounter type: initial encounter Closed fracture of right hip, initial encounter S72.001A Encounter type: initial encounter Effusion, right knee M25.461 (2) Atrial fibrillation Atrial fibrillation type: permanent Qualified Code(s): I48.21 - Permanent atrial fibrillation (3) Fall Encounter type: initial encounter Qualified Code(s): W19.XXXA - Unspecified fall, initial encounter (4) Closed right hip fracture Encounter type: initial encounter Qualified Code(s): S72.001A - Fracture of unspecified part of neck of right femur, initial encounter for closed fracture
[2025-04-14] MEDS ORDERED: ACETAMINOPHEN 500 MG TAB PO PRN (15:08)
[2025-04-14] MEDS: ACETAMINOPHEN 500 MG TAB PO SCH (15:24)
[2025-04-14 15:37] LABS: Hematocrit (blood only) 40.8 % (37.0-47.0); Hemoglobin 12.9 g/dl (12.0-16.0); Mean Corpuscular Hemoglobin 28.5 pg (25.0-34.0); Mean Corpuscular Volume 90.3 fL (80.0-100.0); Platelet Count 174 K/uL (130-400); RDW Standard Deviation 64.2 fL (36.4-46.3); Red Blood Count 4.52 M/uL (4.20-5.40); White Blood Count 6.75 K/ul (4.8-10.8)
[2025-04-14 15:54] LABS: Anion Gap 3.0 (3-11); Blood Urea Nitrogen 31.0 mg/dl (6-23); Calcium 8.8 mg/dl (8.6-10.3); Carbon Dioxide 29.0 mmol/L (21-32); Chloride 102.0 mmol/L (98-107); Creatinine Clr Calc Pharmacy 46.1 ml/min; Glucose 91.0 mg/dl (70-99(Fasting)); Potassium 4.7 mmol/L (3.5-5.1); Sodium 134.0 mmol/L (136-145)
[2025-04-15 05:54] LABS: Hematocrit (blood only) 35.6 % (37.0-47.0); Hemoglobin 11.9 g/dl (12.0-16.0); Mean Corpuscular Hemoglobin 29.2 pg (25.0-34.0); Mean Corpuscular Volume 87.3 fL (80.0-100.0); Platelet Count 178 K/uL (130-400); RDW Standard Deviation 61.8 fL (36.4-46.3); Red Blood Count 4.08 M/uL (4.20-5.40); White Blood Count 5.05 K/ul (4.8-10.8)
[2025-04-15 06:10] LABS: Anion Gap 3.0 (3-11); Blood Urea Nitrogen 35.0 mg/dl (6-23); Calcium 8.4 mg/dl (8.6-10.3); Carbon Dioxide 29.0 mmol/L (21-32); Chloride 103.0 mmol/L (98-107); Creatinine Clr Calc Pharmacy 45.3 ml/min; Glucose 86.0 mg/dl (70-99(Fasting)); Potassium 4.3 mmol/L (3.5-5.1); Sodium 135.0 mmol/L (136-145)
--- NOTE | 2025-04-15 09:00 | XRay Report ---
XR hip RT min 2V CLINICAL HISTORY: right hip fracture; check alignment COMPARISON: Right hip CT April 10, 2025. Right femur radiographs April 09, 2025. FINDINGS: Left hip arthroplasty is partially imaged. Joint space narrowing and extensive osteophytos is of the right hip is again noted. The acute nondisplaced fracture of the greater trochanter of the right femur remains nondisplaced. No displaced right hip fractures are present. IMPRESSION: 1. No change in alignment of an acute nondisplaced fracture of the greater trochanter of the right fe mur, better depicted on prior CT. 2. Severe right hip osteoarthritis. ACT 112: Negative or not required by law. Electronically signed by: Tomas Walker M.D. 04/15/2025 8:58 AM
--- NOTE | 2025-04-15 09:46 | Orthopedic Progress Note ---
Date of Service April 15, 2025 Assessment & Plan (1) Closed right hip fracture: Plan: Comminuted greater trochanter fracture of the right hip with possible extension into the intertrochanteric region. MRI unable to be performed due to having a Cardiac defibrillator. Will continue conservative treatment plan. Nonweightbearing right lower extremity for the next 2 weeks, possibly 6 weeks. Use walker to assist with ambulation. Hip range of motion should be limited to 90 degrees of flexion or less. PT/OT Pain management anticoagulation per primary service. Ice to the right hip as needed for pain or swelling. X-ray of the patient's right hip obtained this morning was reviewed. There is no further displacement of the fracture involving the greater trochanter Follow up as outpatient scheduled with [facility]. (2) Effusion, right knee: Plan: Effusion is trace this morning Crystal analysis showed rare crystals but not consistent with pseudogout or gout. WBCs was 35,000 suggestive inflammation. She does have underlying osteoarthritis and could just be experiencing an acute flare. Would recommend continuing the nonweightbearing (she already has this limitation due to her hip fracture) Ice to right knee as needed for pain or swelling. X-rays were reviewed which had been obtained 04/09/2025 (4 days ago) showing moderate to severe tricompartment arthritis with no fracture. Patient on eliquis so unable to use fdc NSAIDs Concern for infection based on clinical exam and laboratory findings is low, but informed patient that we will wait another day or two (maybe even until Friday) Able to locate anaerobic cultures are still in pulmonary phase If cultures are negative may consider an intra-articular corticosteroid injection No surgical indication at this time. Admission and Anticipated Discharge Date Admission Date: April 07, 2025 Subjective This 69-year-old female seen today for follow-up of a right hip greater trochanteric fracture and right knee effusion. She states that her pain is effectively controlled with p.o. pain medication. She states the swelling in her right knee is much less than it was yesterday. She states she still has pain in her right hip and had an updated x-ray this morning. Currently she denies chest pain, shortness of breath, fever, chills, sweats, nausea, vomiting, diarrhea or difficulty voiding. She states she has met with case management and discussed discharge to either a rehab or fdc facility. Review of Systems Review of Systems: All systems reviewed & are unremarkable except as noted in Subjective Physical Exam Physical Exam: Right hip: Patient experiences tenderness to palpation over the greater trochanter. She has referred pain with logroll testing and straight leg raise testing. She had no discomfort with active dorsi and plantarflexion of her foot. She tolerates passive hip flexion to about 70 degrees. Right knee: Trace effusion. Tenderness to palpation over the anterior aspect of the knee. Pain is exacerbated with flexion of the knee beyond 60 degrees. She has a slight flexion contracture leading in her 15 degrees short of terminal extension. This may be due to the pillow being placed under her knee. Her peripheral pulses are 2+. She is able to detect light sensation to touch over the pads of all digits. She is neurovascularly intact in the right lower extremity. Results & Data Vital Signs (Past 12 Hours) Vital Signs Temp Pulse Pulse Resp BP Pulse Ox O2 Del Method 04/15/25 08:19 36.6 C 60 18 100/68 100 Room Air 04/15/25 05:48 60 04/15/25 02:39 36.6 C 60 18 93/60 L 96 Room Air 04/14/25 22:51 Room Air 04/14/25 22:29 36.6 C 60 18 93/59 L 95 Room Air 04/14/25 21:51 60 Diagnostic Findings Laboratory Results WBC 5.05 K/ul (4.8-10.8) 04/15/25 05:20 RBC 4.08 M/uL (4.20-5.40) L 04/15/25 05:20 Hgb 11.9 g/dl (12.0-16.0) L 04/15/25 05:20 Hct 35.6 % (37.0-47.0) L 04/15/25 05:20 MCV 87.3 fL (80.0-100.0) 04/15/25 05:20 MCH 29.2 pg (25.0-34.0) 04/15/25 05:20 MCHC 33.4 g/dL (32.0-36.0) 04/15/25 05:20 RDW Std Deviation 61.8 fL (36.4-46.3) H 04/15/25 05:20 RDW Coeff of Beau 19.3 % (11.5-14.5) H 04/15/25 05:20 Plt Count 178 K/uL (130-400) 04/15/25 05:20 MPV 11.1 fL (9.4-12.4) 04/15/25 05:20 Immature Gran % (Auto) 0.5 % 04/07/25 15:05 Neut % (Auto) 62.3 % 04/07/25 15:05 Lymph % (Auto) 26.0 % 04/07/25 15:05 [place]quette % (Auto) 9.8 % 04/07/25 15:05 Eos % (Auto) 0.6 % 04/07/25 15:05 Baso % (Auto) 0.8 % 04/07/25 15:05 Neut # (Auto) 3.87 K/uL (1.40-6.50) 04/07/25 15:05 Lymph # (Auto) 1.62 K/uL (1.20-3.40) 04/07/25 15:05 [place]quette # (Auto) 0.61 K/uL (0.11-0.59) H 04/07/25 15:05 Eos # (Auto) 0.04 K/uL (0.00-0.50) 04/07/25 15:05 Baso # (Auto) 0.05 K/uL (0.00-0.20) 04/07/25 15:05 Immature Gran # (Auto) 0.03 K/uL (0.01-0.20) 04/07/25 15:05 PT 14.3 Seconds (9.0-12.0) H 04/07/25 15:05 INR 1.4 (0.9-1.1) H 04/07/25 15:05 APTT 32 Seconds (21-31) H 04/07/25 15:05 PTT Ratio 1.2 04/07/25 15:05 Sodium 135 mmol/L (136-145) L 04/15/25 05:20 Potassium 4.3 mmol/L (3.5-5.1) 04/15/25 05:20 Chloride 103 mmol/L (98-107) 04/15/25 05:20 Carbon Dioxide 29 mmol/L (21-32) 04/15/25 05:20 Anion Gap 3 (3-11) 04/15/25 05:20 BUN 35 mg/dl (6-23) H 04/15/25 05:20 Creatinine 1.11 mg/dl (0.6-1.2) 04/15/25 05:20 Est Cr Clr Drug Dosing 45.3 ml/min 04/15/25 05:20 eGFR 54.48 04/15/25 05:20 BUN/Creatinine Ratio 31.5 (10-20) H 04/15/25 05:20 Glucose 86 mg/dl (70-99(Fasting)) 04/15/25 05:20 Lactate 1.5 mmol/L (0.4-2.0) 04/09/25 11:30 Calcium 8.4 mg/dl (8.6-10.3) L 04/15/25 05:20 Phosphorus 2.9 mg/dl (2.5-4.9) 04/12/25 08:49 Magnesium 2.2 mg/dl (1.7-2.4) 04/13/25 05:35 Total Bilirubin 1.8 mg/dl (0.2-1.0) H 04/08/25 05:20 AST 12 U/L (13-39) L 04/08/25 05:20 ALT 8 U/L (7-52) 04/08/25 05:20 Alkaline Phosphatase 86 U/L (34-104) 04/08/25 05:20 Troponin I High Sens 11.1 pg/ml (0-14) 04/07/25 15:05 B-Natriuretic Peptide 1654 pg/ml (0-100) H 04/07/25 15:05 Total Protein 5.2 gm/dl (6.0-8.3) L D 04/08/25 05:20 Albumin 2.7 gm/dl (3.4-5.0) L 04/08/25 05:20 Globulin 2.5 gm/dl (2.5-4.0) 04/08/25 05:20 Albumin/Globulin Ratio 1.1 (0.9-2) 04/08/25 05:20 Procalcitonin 0.06 ng/ml (0-0.5) 04/07/25 15:05 Fluid Comment 04/13/25 10:50 Synovial Source Right Knee 04/13/25 10:50 Synovial Color Yellow 04/13/25 10:50 Synovial Appearance Cloudy 04/13/25 10:50 Synovial WBC (Auto) 70256 /ul (0-200) H 04/13/25 10:50 Synovial RBC (Auto) 3000 /uL 04/13/25 10:50 Synovial Polynuclear % 93.6 % 04/13/25 10:50 Synovial Mononuclear % 6.4 % 04/13/25 10:50 Synovial Crystals 04/13/25 10:50 Impressions Chest X-Ray 04/07/25 15:15 XR chest 1V portable CLINICAL HISTORY: Chest pain, nonspecific COMPARISON STUDY: 03/28/2025 FINDINGS: Stable pacemaker. Stable cardiomegaly without pulmonary vascular congestion. There is an interval small area of patchy opacity medial right lung base. No other consolidation or pleural effusion. No pneumothorax. IMPRESSION: Possible early pneumonia medial right lung base. ACT 112: Negative or not required by law. Electronically signed by: Marvin Bar M.D. 04/07/2025 3:46 PM Hip/Pelvis X-Ray 04/07/25 17:10 EXAMINATION: X-ray hip right 2 view with pelvis CLINICAL HISTORY: Fall PRIORS: CT 01/19/2025 TECHNIQUE: AP view pelvis, 2 views right hip FINDINGS: Left total hip arthroplasty present in unchanged and appearance. [id number] degenerative change of the right hip present with no acute displaced fracture or dislocation. Pubic symphysis is not widened. Obturator rings are unremarkable. Sacroiliac joints are patent. Prominent osteophyte of the superolateral acetabulum and superolateral aspect of the humeral head. No soft tissue abnormality. IMPRESSION: 1. No plain film evidence of an acute osseous abnormality. 2. Advanced degenerative change of the right hip with anatomy that may predispose to femoral acetabular impingement. Electronically signed by Maggie 04-07-2025 7:27 PM Venous Doppler Study 04/08/25 09:45 HISTORY: Bilateral lower extremity swelling. TECHNIQUE: Bilateral lower extremity venous Doppler evaluation for DVT. COMPARISON: None. FINDINGS: The bilateral common femoralVeins, greater saphenous junctions, femoral veins, popliteal veins appear color Doppler patent and compressible. Color Doppler flow is demonstrated in the deep femoral,posterior tibial, peroneal, and anterior tibial veins. Respiratory variation and augmentation is noted. IMPRESSION: No evidence of lower extremity DVT. Electronically signed by Harris Hagan 04-08-2025 3:54 PM Femur X-Ray 04/09/25 10:45 XR femur RT 2V routine CLINICAL HISTORY: pain thigh. recent fall COMPARISON: Pelvis and right hip radiographs April 07, 2025. CT of the abdomen and pelvis March 28, 2025. FINDINGS: There are no fractures within the right femur. No osseous lesions are noted. Suprapatellar calcific densities are noted. There is no right knee joint effusion. Severe right hip osteoarthritis is present. There are also moderate to severe degenerative changes within the right knee. IMPRESSION: 1. No fractures within the right femur. 2. Severe right hip osteoarthritis. 3. Moderate to severe right knee osteoarthritis. ACT 112: Negative or not required by law. Electronically signed by: Tomas Walker M.D. 04/09/2025 11:47 AM Knee X-Ray 04/09/25 13:05 XR knee LT 3V CLINICAL HISTORY: left knee pain, h/o fall COMPARISON: None FINDINGS: Alignment of the left knee is anatomic. Left knee arthroplasty is intact. There is no periprosthetic fracture or lucency. No left knee joint effusion is present. Distal aspect of the femoral component of left hip arthroplasty is partially imaged. There is mild infrapatellar soft tissue swelling. IMPRESSION: 1. Intact total left knee arthroplasty. No periprosthetic fracture or lucency. 2. No left knee joint effusion. 3. Mild infrapatellar soft tissue swelling. ACT 112: Negative or not required by law. Electronically signed by: Tomas Walker M.D. 04/09/2025 2:[address] 04/10/25 11:[address] WITHOUT CONTRAST CLINICAL HISTORY: Right thigh pain. COMPARISON STUDY: Right femur and right knee radiographs April 09, 2025. TECHNIQUE: Axial images of the right femur were obtained without IV contrast. Sagittal and coronal reformats were viewed. A dose lowering technique was utili zed adhering to the principles of ALARA. FINDINGS: There is an acute nondisplaced minimally comminuted fracture of the greater trochanter of the right femur. There is possible intertrochanteric ext ension of the fracture. No additional fractures within the right femur are identified. There is moderate joint space narrowing is severe osteophytosis of the right hip. Moderate to severe tricompartmental osteoarthritis of the right knee is also noted. A right popliteal cyst is incidentally noted. Subcutaneous edema of the lateral right thigh is incidentally noted. IMPRESSION: 1. Acute nondisplaced minimally comminuted fracture of the greater trochanter of the right femur with possible intertrochanteric extension of the fracture. MRI of the right hip could be obtained for further evaluation if indicated. 2. Moderate to severe right hip and right knee osteoarthritis. ACT 112: Negative or not required by law. Electronically signed by: Tomas Walker M.D. 04/10/2025 11:[address] 04/10/25 11:00 CT hip RT wo con CLINICAL HISTORY: Right hip and right thigh pain. COMPARISON STUDY: CT of the abdomen and pelvis January 19, 2025. Right femur radiographs April 09, 2025. TECHNIQUE: Axial images of the right hip were obtained without IV contrast. Sagittal and coronal reformats were viewed. A dose lowering technique was utilized adhering to the principles of ALARA. FINDINGS: There is an acute comminuted nondisplaced fracture of the greater trochanter of the right femur. There is possible intertrochanteric extension. There is moderate joint space narrowing and extensive osteophytosis of the right hip. No additional fractures are identified. Subcutaneous edema of the lateral right thigh is present without well-defined fluid collection. IMPRESSION: 1. Acute nondisplaced comminuted fracture of the greater trochanter of the right femur with possible intertrochanteric extension. MRI of the right hip could be obtained to evaluate for intertrochanteric extension if indicated. 2. Moderate to severe right hip osteoarthritis. ACT 112: Negative or not required by law. Electronically signed by: Tomas Walker M.D. 04/10/2025 11:49 AM Hip X-Ray 04/15/25 08:00 XR hip RT min 2V CLINICAL HISTORY: right hip fracture; check alignment COMPARISON: Right hip CT April 10, 2025. Right femur radiographs April 09, 2025. FINDINGS: Left hip arthroplasty is partially imaged. Joint space narrowing and extensive osteophytosis of the right hip is again noted. The acute nondisplaced fracture of the greater trochanter of the right femur remains nondisplaced. No displaced right hip fractures are present. IMPRESSION: 1. No change in alignment of an acute nondisplaced fracture of the greater trochanter of the right femur, better depicted on prior CT. 2. Severe right hip osteoarthritis. ACT 112: Negative or not required by law. Electronically signed by: Tomas Walker M.D. 04/15/2025 8:58 AM (1) Closed right hip fracture Encounter type: initial encounter Qualified Code(s): S72.001A - Fracture of unspecified part of neck of right femur, initial encounter for closed fracture
--- NOTE | 2025-04-15 11:25 | Cardiology Progress Note ---
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 (2) Atrial fibrillation: (3) Fall: (4) Closed right hip fracture: (5) Effusion, right knee: Plan Patient is 69-year-old female with PMH HTN, HLD, history drug induced cardiomyopathy with HFrEF, history complete heart block s/p pacemaker defibrillator in 05/2018 most recent generator change 05/14/24, paroxysmal atrial fibrillation s/p cardioversion 12/23/2014 and 02/22/2018 and now permanent atrial fibrillation, anticoagulated on Eliquis, CKD III, hypothyroidism, Njfzhbn-Qewlk-Kkrao disease, history of breast cancer presented to ER with acute exacerbation of HFrEF and a reported 5lb weight gain with noted recent dyspnea on exertion, lower extremity edema. Transthoracic echocardiogram performed this admission 04/2025 revealed ongoing severe left ventricular systolic dysfunction, LVEF in the range of 20-25%, with diffuse left ventricular hypokinesis. Mild mitral regurgitation. Moderate tricuspid regurgitation, pulmonary artery systolic pressure estimated to be 42 mmHg. Ejection fraction 30-34% on most recent prior echo performed at an outpatient in October,. She also describes two recent mechanical fall episodes in March 2025. She typically walks without assistance in her home and with a cane when she leaves the house. Since the most recent fall she has had progressive pain in her right hip limiting her walking to a few steps due to pain. She has been found to have an intertrochanteric fracture possibly extending to the femur. She was given 40mg IV lasix x 1 in the ED. Historically, she has not been on Entresto/ACEi/ARB due to hypotension. She has experienced tissue weight loss over the last year. NYHA Class IIIb-IV, Stage C- D. 1. Acute Exacerbation of HFrEF -NYHA Class IIIb, Stage C. -LE edema resolved. -Trial of Entresto was discontinued due to hypotension. -Continue metoprolol succinate 25 mg twice daily (dose reduced from [employer]TRA[employer] TECHNICIAN dose of 50 mg twice daily), Jardiance 10 mg daily, spironolactone 12.5 mg 3 days/week on Wednesdays and Fridays. -Has been receiving furosemide 20 mg p.o. daily in the hospital, will increase this to 40 mg daily which is her outpatient dose. -Continue midodrine 5 mg 3 times daily, new medication for this hospital stay. -Continue Eliquis for stroke prophylaxis 2. Right trochanteric fracture, mechanical falls Right knee effusion Orthopedic input noted and appreciated. Arthrocentesis fluid consistent with inflammation but not gout or pseudogout. Agree the patient is not a good candidate for nonsteroidal anti-inflammatory therapy. Continue ice. Nonweightbearing status For right trochanteric fracture planned for 2 to 4 weeks. --Disposition: Await SNF approval. Tanja Jamil DO Admission and Anticipated Discharge Date Admission Date: April 07, 2025 Subjective Patient seen in cardiology follow-up. Denies chest discomfort or shortness of breath at present, but apparently did have mild shortness of breath overnight last night. Ventricular paced rhythm with underlying atrial fibrillation and occasional PVCs. Physical Exam Constitutional: WD/WN, vitals as above + thin; not in distress Eyes: PERRL, conjunctivae normal, anicteric sclerae Cardiovascular: Rate/Rhythm: regular rhythm Heart Sounds: + murmur (1/6 systolic murmur) Extremities: no edema (ankle findings consistent with her history of [id number]-vetpa) Gastrointestinal (Abdomen): normal bowel sounds, soft, nontender, no hepatosplenomegaly Neurologic: PERRL, EOMI, accommodation nl, no face palsy, no dysarthria Results & Data Vital Signs (Past 12 Hours) Vital Signs Temp Pulse Pulse Resp BP Pulse Ox O2 Del Method 04/15/25 10:28 Room Air 04/15/25 08:19 36.6 C 60 18 100/68 100 Room Air 04/15/25 05:48 60 04/15/25 02:39 36.6 C 60 18 93/60 L 96 Room Air Laboratory Results CBC 04/14/25 04/15/25 Range/Units 15:17 05:20 WBC 6.75 5.05 (4.8-10.8) K/ul RBC 4.52 4.08 L (4.20-5.40) M/uL Hgb 12.9 11.9 L (12.0-16.0) g/dl Hct 40.8 35.6 L (37.0-47.0) % Plt Count 174 178 (130-400) K/uL Comprehensive Metabolic Panel 04/14/25 04/15/25 Range/Units 15:17 05:20 Sodium 134 L 135 L (136-145) mmol/L Potassium 4.7 4.3 (3.5-5.1) mmol/L Chloride 102 103 (98-107) mmol/L Carbon Dioxide 29 29 (21-32) mmol/L BUN 31 H 35 H (6-23) mg/dl Creatinine 1.09 D 1.11 (0.6-1.2) mg/dl Glucose 91 86 (70-99(Fasting)) mg/dl Calcium 8.8 8.4 L (8.6-10.3) mg/dl Coding [place] [address] SUB INP/OBS CARE MIN Patient Type Established History Detailed Exam Detailed Medical Decision Making Moderate Complexity Diagnoses Acute exacerbation of chronic heart failure I50.9 Permanent atrial fibrillation I48.21 Atrial fibrillation type: permanent Fall W19.XXXA Encounter type: initial encounter Closed fracture of right hip, initial encounter S72.001A Encounter type: initial encounter Effusion, right knee M25.461 (2) Atrial fibrillation Atrial fibrillation type: permanent Qualified Code(s): I48.21 - Permanent atrial fibrillation (3) Fall Encounter type: initial encounter Qualified Code(s): W19.XXXA - Unspecified fall, initial encounter (4) Closed right hip fracture Encounter type: initial encounter Qualified Code(s): S72.001A - Fracture of unspecified part of neck of right femur, initial encounter for closed fracture
--- NOTE | 2025-04-15 12:10 | Hospitalist Progress Note ---
Date of Service April 15, 2025 Assessment & Plan (1) Acute on chronic heart failure with reduced ejection fraction (HFrEF, <= 40%): (2) Chronic atrial fibrillation: (3) Nonischemic cardiomyopathy: (4) Presence of combination internal cardiac defibrillator (ICD) and pacemaker: (5) CKD (chronic kidney disease) stage 3, GFR 30-59 ml/min: Plan Patient is 69-year-old female with PMH HTN, HLD, history drug induced cardiomyopathy with HFrEF, s/p ICD 03/2015, history complete heart block s/p pacemaker defibrillator in 05/2018, paroxysmal atrial fibrillation s/p cardioversion 12/23/2014 and 02/22/2018 and now permanent atrial fibrillation, anticoagulated on Eliquis, CKD III, hypothyroidism, Rjvdzey-Robgs-Helbt disease, history of breast cancer and others listed below presented to ER on 04/07/25 with complaint of increased shortness of breath and was found to have acute exacerbat ion of HFrEF. Acute on chronic HFrEF Nonischemic cardiomyopathy ICD in place Chronic atrial fibrillation anticoagulated on Eliquis 10/14/2024 echo: EF: 30-34%, severe diffuse left ventricular hypokinesis, right atrium severely enlarged, mild mitral regurgitation, mild tricuspid regurgitation, mild pulmonary hypertension 04/08/25 echo: EF: 20-25%, diffuse hypokinesis, mild mitral regurgitation, right ventricular systolic function mildly reduced, moderate tricuspid regurgitation, mild pulmonary hypertension Patient with continued soft BPs, HR controlled Received IV lasix 40mg x 2 total doses on 04/07 & 04/08 with improvement of BLE edema and dyspnea, orthopnea. 04/09/25 on home Lasix 40mg daily. negative 2000ml balance since admission Management limited by hypotension- not on Entresto/ACEi/ARB for this reason Appreciate cards input- plan to increase Lasix back to home dose of 40mg tomorrow, reduced Toprol dose of 25mg BID, Jardiance, spironolactone 12.5mg M oWeFr, Eliquis for stroke ppx Hyperkalemia -> resolved KCl had been held for a few days due to K of 5, resumed now that Entresto discontinued Monitor daily BMP Possible Pneumonia right lung CXR: Possible early pneumonia medial right lung base. Procalcitonin was negative Pt denies fever, chills Received Rocephin, doxycycline. Will continue doxycycline. Change to cefuroxime on 04/09/25, completed course today, 04/14 Continue Flutter valve, incentive spirometry, Mucinex, antitussives PRN Recurrent Falls Right Femur Fracture Patient reports two mechanical falls in 03/2025 Seen at [facility] ER 03/28/[address] head, CT C-spine at that time Had ongoing right hip, right thigh, bilateral knee pain since fall with difficulty ambulating Noted unsteady gait in ER. Today patient able to actively flex and extend legs in bed which is improvement Hip/pelvis, R knee, Right femur and L knee xrays negative for fracture Venous doppler negative for DVT CT Hip on 04/10 due to continued pain showed: Acute nondisplaced comminuted fracture of the greater trochanter of the right femur with possible intertrochan teric extension Orthopedics seen and evaluated and unable to obtain MRI given pacer/defibrillator * Recommend NWB RLE 2-6 weeks, use walker to assist with ambulation * Hip range of motion should be limited to 90 degrees of flexion or less. * PT/OT, analgesics, ice * Repeat x-ray of her right hip to check alignment of fracture for Sunday 04/15 - no change * Follow up as outpatient scheduled with [facility] R knee effusion Noted on 04/12, ortho notified and joint aspirated, WBCs 35K consistent with inflammation, known underlying OA, low concern for infxn but follow cx Awaiting culture results prior to possible intra-articular joint injection Negative for gout/pseudogout Continue Tylenol, PRN, ice - not a fci nsaid candidate given Eliquis as above Remain NWB RLE, continue ice CKD III Monitor Cr (baseline cr ~1.3) Monitor renal functions. Avoid nephrotoxic agents as able Hypothyroidism Continue levothyroxine DVT Prophylaxis: Eliquis Dispo: Rehab referrals placed, denied [facility]. Referral placed at [email or web address], pending. Will call emy Jarrell [phone] with an update. Patient seen in collaboration with Dr. Alvarez. I spent a total of 45 minutes coordinating, documenting, and providing care for this patient excluding time spent in the performance of separately billed ser vices or time spent by another provider/QHP. Admission and Anticipated Discharge Date Admission Date: April 07, 2025 Supervising Physician Co-Signing Physician Notes Patient is seen and examined at bedside. Knee, hip pain controlled with pain medication. Had transient shortness of breath this morning which spontaneously resolved. No other new complaints today. Still has minimal cough. Physical Exam: Vitals signs as noted above General Appearance:Moderately built and nourished, no apparent distress Head: normocephalic, Atraumatic Eyes: normal inspection, left eye artificial; right pupil irregular-- baseline per patient Neck: supple, Trachea midline Respiratory/Chest: Normal breath sounds, CTA, No accessory muscle use Cardiovascular: S1, S2, +murmur Abdomen/GI:Soft, Non tender, Bowel sounds present Extremities/Musculoskeletal:normal inspection, right knee swelling, tender Neurologic/Psych:AAOX3, grossly no focal neurological deficits Skin: normal color, warm Acute on chronic heart failure with reduced ejection fraction Nonischemic cardiomyopathy Unable to tolerate Entresto due to hypotension Continue midodrine, Jardiance, metoprolol succinate, Aldactone, Lasix Appreciate cardiology input Monitor renal function, electrolytes, volume status Lasix increased to 40 mg daily (outpatient dose) Saturating well on room air Community-acquired pneumonia Completed antibiotic course Saturating well on room air Right knee effusion likely due to osteoarthritis Right hip fracture Follow-up synovial fluid studies/culture No crystals to suggest gout/pseudogout Orthopedics following--appreciate help Continue PT OT, fall precautions Will benefit from SNF placement Continue nonweightbearing right lower extremity. If cultures remain negative, Ortho plans to give intra-articular corticosteroid injection I personally interviewed and examined the patient at bedside. I have reviewed the advanced practitioner's documentation on the date of service referred in note and agree with plan. Patient's care is coordinated with Mavis Hernandez PA-C. Please refer to the documentation above for details of patient's presentation and for discussion of other issues. I spent a total [id number] coordinating, documenting, and providing care for this patient excluding time spent in the performance of separately billed services or time spent by another provider/QHP. Subjective Seen and examined in 289-2. Had episode of feeling SOB this AM but states it resolved quickly. Did not require O2. Pain controlled this AM at R hip and knee. No F/C, lightheadedness, CP, N/V, abd pain, dysuria, diarrhea or constipation. Review of Systems Review of Systems: At least ten systems reviewed and negative except as noted in the HPI. Physical Exam Physical Exam: Gen: WD/WN, NAD, resting in bed comfortably, appears chronically ill, A&Ox3 HEENT: Normocephalic, atraumatic, mucous membranes moist, + L eye artificial, R eye pupil irregular (baseline) Lung: Clear to Auscultation bilaterally Heart: Regular rate, regular rhythm, trace BLE edema Abdomen: Soft, NT, ND +BS x 4 Extremities: R hip joint and prox L leg TTP, R knee with edema, ice in place Skin: Warm, no rash Results & Data Results & Data Vital Signs (Past 12 Hours) Vital Signs Temp Pulse Pulse Resp BP Pulse Ox O2 Del Method 04/15/25 11:31 36.6 C 63 20 91/59 L 98 Room Air 04/15/25 10:28 Room Air 04/15/25 08:19 36.6 C 60 18 100/68 100 Room Air 04/15/25 05:48 60 04/15/25 02:39 36.6 C 60 18 93/60 L 96 Room Air Laboratory Results Short CBC 04/14/25 04/15/25 Range/Units 15:17 05:20 WBC 6.75 5.05 (4.8-10.8) K/ul Hgb 12.9 11.9 L (12.0-16.0) g/dl Hct 40.8 35.6 L (37.0-47.0) % Plt Count 174 178 (130-400) K/uL BMP 04/14/25 04/15/25 15:17 05:20 Sodium 134 L 135 L Potassium 4.7 4.3 Chloride 102 103 Carbon Dioxide 29 29 BUN 31 H 35 H Creatinine 1.09 D 1.11 Glucose 91 86 Calcium 8.8 8.4 L Diagnostic Findings Chest X-Ray 04/07/25 15:15 XR chest 1V portable CLINICAL HISTORY: Chest pain, nonspecific COMPARISON STUDY: 03/28/2025 FINDINGS: Stable pacemaker. Stable cardiomegaly without pulmonary vascular congestion. There is an interval small area of patchy opacity medial right lung base. No other consolidation or pleural effusion. No pneumothorax. IMPRESSION: Possible early pneumonia medial right lung base. ACT 112: Negative or not required by law. Electronically signed by: Marvin Bar M.D. 04/07/2025 3:46 PM Hip/Pelvis X-Ray 04/07/25 17:10 EXAMINATION: X-ray hip right 2 view with pelvis CLINICAL HISTORY: Fall PRIORS: CT 01/19/2025 TECHNIQUE: AP view pelvis, 2 views right hip FINDINGS: Left total hip arthroplasty present in unchanged and appearance. [id number]-bb-[id number] degenerative change of the right hip present with no acute displaced fracture or dislocation. Pubic symphysis is not widened. Obturator rings are unremarkable. Sacroiliac joints are patent. Prominent osteophyte of the superolateral acetabulum and superolateral aspect of the humeral head. No soft tissue abnormality. IMPRESSION: 1. No plain film evidence of an acute osseous abnormality. 2. Advanced degenerative change of the right hip with anatomy that may predispose to femoral acetabular impingement. Electronically signed by Maggie 04-07-2025 7:27 PM Knee X-Ray 04/07/25 17:10 EXAMINATION: X-ray knee right 3 view CLINICAL HISTORY: Fall PRIORS: None TECHNIQUE: Frontal, lateral and patella view. FINDINGS: Moderate osseous demineralization noted. Alignment maintained. Diffuse edema throughout the visualized subcutaneous tissues. Moderate to advanced tricompartmental degenerative change of the right knee with peaking of the tibial spines. No acute or displaced fracture or dislocation. Enthesophytes of the patella noted. No suprapatellar joint effusion. No subcutaneous gas. Moderate lateral patella subluxation. IMPRESSION: 1. No plain film evidence of an acute osseous abnormality. 2. Osseous demineralization with tricompartmental degenerative change and diffuse edema throughout the soft tissues. Electronically signed by Maggie 04-07-2025 7:27 PM Venous Doppler Study 04/08/25 09:45 HISTORY: Bilateral lower extremity swelling. TECHNIQUE: Bilateral lower extremity venous Doppler evaluation for DVT. COMPARISON: None. FINDINGS: The bilateral common femoralVeins, greater saphenous junctions, femoral veins, popliteal veins appear color Doppler patent and compressible. Color Doppler flow is demonstrated in the deep femoral,posterior tibial, peroneal, and anterior tibial veins. Respiratory variation and augmentation is noted. IMPRESSION: No evidence of lower extremity DVT. Electronically signed by Harris Hagan 04-08-2025 3:54 PM Knee X-Ray 04/09/25 09:54 XR knee RT 3V CLINICAL HISTORY: h/o fall. Right knee pain, ecchymosis COMPARISON: Right knee radiographs April 07, 2025. FINDINGS: Alignment of the right knee is anatomic with the exception of lateral patellar tilt. There are no fractures within the right knee. There is no right knee joint effusion. Suprapatellar joint space calcific densities are present. Severe patellofemoral compartment joint space narrowing is noted. There is moderate lateral compartment joint space narrowing. Tricompartmental osteophytosis is present. IMPRESSION: 1. No fractures within the right knee. No right knee joint effusion. 2. Moderate to severe tricompartmental osteoarthritis of the right knee. ACT 112: Negative or not required by law. Electronically signed by: Tomas Walker M.D. 04/09/2025 11:49 AM Femur X-Ray 04/09/25 10:45 XR femur RT 2V routine CLINICAL HISTORY: pain thigh. recent fall COMPARISON: Pelvis and right hip radiographs April 07, 2025. CT of the abdomen and pelvis March 28, 2025. FINDINGS: There are no fractures within the right femur. No osseous lesions are noted. Suprapatellar calcific densities are noted. There is no right knee joint effusion. Severe right hip osteoarthritis is present. There are also moderate to severe degenerative changes within the right knee. IMPRESSION: 1. No fractures within the right femur. 2. Severe right hip osteoarthritis. 3. Moderate to severe right knee osteoarthritis. ACT 112: Negative or not required by law. Electronically signed by: Tomas Walker M.D. 04/09/2025 11:47 AM Knee X-Ray 04/09/25 13:05 XR knee LT 3V CLINICAL HISTORY: left knee pain, h/o fall COMPARISON: None FINDINGS: Alignment of the left knee is anatomic. Left knee arthroplasty is intact. There is no periprosthetic fracture or lucency. No left knee joint effusion is present. Distal aspect of the femoral component of left hip arthroplasty is partially imaged. There is mild infrapatellar soft tissue swelling. IMPRESSION: 1. Intact total left knee arthroplasty. No periprosthetic fracture or lucency. 2. No left knee joint effusion. 3. Mild infrapatellar soft tissue swelling. ACT 112: Negative or not required by law. Electronically signed by: Tomas Walker M.D. 04/09/2025 2:[address] 04/10/25 11:[address] WITHOUT CONTRAST CLINICAL HISTORY: Right thigh pain. COMPARISON STUDY: Right femur and right knee radiographs April 09, 2025. TECHNIQUE: Axial images of the right femur were obtained without IV contrast. Sa gittal and coronal reformats were viewed. A dose lowering technique was utilized adhering to the principles of ALARA. FINDINGS: There is an acute nondisplaced minimally comminuted fracture of the g reater trochanter of the right femur. There is possible intertrochanteric extension of the fracture. No additional fractures within the right femur are identified. There is moderate joint space narrowing is severe osteophytosis of the right hip. Moderate to severe tricompartmental osteoarthritis of the right knee is also noted. A right popliteal cyst is incidentally noted. Subcutaneous edema of the lateral right thigh is incidentally noted. IMPRESSION: 1. Acute nondisplaced minimally comminuted fracture of the greater trochanter of the right femur with possible intertrochanteric extension of the fracture. MRI of the right hip could be obtained for further evaluation if indicated. 2. Moderate to severe right hip and right knee osteoarthritis. ACT 112: Negative or not required by law. Electronically signed by: Tomas Walker M.D. 04/10/2025 11:[address] 04/10/25 11:00 CT hip RT wo con CLINICAL HISTORY: Right hip and right thigh pain. COMPARISON STUDY: CT of the abdomen and pelvis January 19, 2025. Right femur radiographs April 09, 2025. TECHNIQUE: Axial images of the right hip were obtained without IV contrast. Sagittal and coronal reformats were viewed. A dose lowering technique was utilized adhering to the principles of ALARA. FINDINGS: There is an acute comminuted nondisplaced fracture of the greater trochanter of the right femur. There is possible intertrochanteric extension. There is moderate joint space narrowing and extensive osteophytosis of the right hip. No additional fractures are identified. Subcutaneous edema of the lateral right thigh is present without well-defined fluid collection. IMPRESSION: 1. Acute nondisplaced comminuted fracture of the greater trochanter of the right femur with possible intertrochanteric extension. MRI of the right hip could be obtained to evaluate for intertrochanteric extension if indicated. 2. Moderate to severe right hip osteoarthritis. ACT 112: Negative or not required by law. Electronically signed by: Tomas Walker M.D. 04/10/2025 11:49 AM Hip X-Ray 04/15/25 08:00 XR hip RT min 2V CLINICAL HISTORY: right hip fracture; check alignment COMPARISON: Right hip CT April 10, 2025. Right femur radiographs April 09, 2025. FINDINGS: Left hip arthroplasty is partially imaged. Joint space narrowing and extensive osteophytosis of the right hip is again noted. The acute nondisplaced fracture of the greater trochanter of the right femur remains nondisplaced. No displaced right hip fractures are present. IMPRESSION: 1. No change in alignment of an acute nondisplaced fracture of the greater trochanter of the right femur, better depicted on prior CT. 2. Severe right hip osteoarthritis. ACT 112: Negative or not required by law. Electronically signed by: Tomas Walker M.D. 04/15/2025 8:58 AM (5) CKD (chronic kidney disease) stage 3, GFR 30-59 ml/min Chronic kidney disease stage 3 subtype: unspecified whether 3a or 3b Qualified Code(s): N18.30 - Chronic kidney disease, stage 3 unspecified
--- NOTE | 2025-04-16 07:28 | Hospitalist Progress Note ---
Date of Service April 16, 2025 Assessment & Plan (1) Acute on chronic heart failure with reduced ejection fraction (HFrEF, <= 40%): (2) Chronic atrial fibrillation: (3) Nonischemic cardiomyopathy: (4) Presence of combination internal cardiac defibrillator (ICD) and pacemaker: (5) CKD (chronic kidney disease) stage 3, GFR 30-59 ml/min: Plan Patient is 69-year-old female with PMH HTN, HLD, history drug induced cardiomyopathy with HFrEF, s/p ICD 03/2015, history complete heart block s/p pacemaker defibrillator in 05/2018, paroxysmal atrial fibrillation s/p cardioversion 12/23/2014 and 02/22/2018 and now permanent atrial fibrillation, anticoagulated on Eliquis, CKD III, hypothyroidism, Zzwuqcs-Zgulz-Pfgmx disease, history of breast cancer and others listed below presented to ER on 04/07/25 with complaint of increased shortness of breath and was found to have acute exacerbat ion of HFrEF. Acute on chronic HFrEF Nonischemic cardiomyopathy ICD in place Chronic atrial fibrillation anticoagulated on Eliquis Ventricular Tachycardia 10/14/2024 echo: EF: 30-34%, severe diffuse left ventricular hypokinesis, right atrium severely enlarged, mild mitral regurgitation, mild tricuspid regurgitation, mild pulmonary hypertension 04/08/25 echo: EF: 20-25%, diffuse hypokinesis, mild mitral regurgitation, right ventricular systolic function mildly reduced, moderate tricuspid regurgitation, mild pulmonary hypertension Patient with continued soft BPs, HR controlled Resumed Lasix 40mg daily, per Cards recc Aldactone added 12.5 M/W/F. 1.8L FR Management limited by hypotension- not on Entresto/ACEi/ARB for this reason VT 10 beat run, asymptomatic. Added on Magnesium level; 2.4 Appreciate cards input- Lasix 40mg resumed, Toprol dose of 25mg BID, Jardiance, spironolactone 12.5mg MoWeFr, Eliquis for stroke ppx Possible Pneumonia right lung CXR: Possible early pneumonia medial right lung base. Procalcitonin negative Pt denies fever, chills Received Rocephin, doxycycline. Will continue doxycycline. Continue Flutter valve, incentive spirometry, Mucinex, antitussives PRN Recurrent Falls Right Femur Fracture mechanical falls x 2 in 03/2025 Seen at [facility] ER 03/28/[address] head, CT C-spine at that time Had ongoing right hip, right thigh, bilateral knee pain since fall with difficulty ambulating Noted unsteady gait in ER. Today patient able to actively flex and extend legs in bed which is improvement Hip/pelvis, R knee, Right femur and L knee xrays negative for fracture Venous doppler (-) for DVT CT Hip on 04/10 due to continued pain showed: Acute nondisplaced comminuted fracture of the greater trochanter of the right femur with possible intertrochanteric extension Orthopedics seen and evaluated and unable to obtain MRI given pacer/defibrillator * Recommend NWB RLE 2-6 weeks, use walker to assist with ambulation * Hip range of motion should be limited to 90 degrees of flexion or less. * PT/OT, analgesics, ice * Repeat x-ray of her right hip to check alignment of fracture for Sunday 04/15 - no change * Follow up as outpatient scheduled with [facility] Orthopedics R knee effusion Noted on 04/12, ortho notified and joint aspirated, WBCs 35K consistent with inflammation, known underlying OA, low concern for infxn but follow cx Awaiting culture results prior to possible intra-articular joint injection, no growth to date Negative for gout/pseudogout Continue Tylenol, PRN, ice - not a half-way NSAID candidate given Eliquis as above Remain NWB RLE, continue ice Plan for Ortho to drain on Wednesday 04/18 prior to DC; if not able, ok for OPT CKD III Monitor Cr (baseline cr ~1.3) Monitor renal functions. Avoid nephrotoxic agents as able Hypothyroidism Continue levothyroxine Hyperkalemia RESOLVED KCl had been held for a few days due to K of 5, resumed now that Entresto discontinued Monitor daily BMP Disposition: DVT Prophylaxis: Eliquis Dispo: denied [facility]. Plan for discharge Wednesday 04/18 @ [email or web address]. Next of Kin: emy Jarrell [phone] Patient seen in collaboration with Dr. Alvarez. I spent a total of 56 minutes coordinating, documenting, and providing care for this patient excluding time spent in the performance of separately billed services or time spent by another provider/QHP. Admission and Anticipated Discharge Date Admission Date: April 07, 2025 Supervising Physician Co-Signing Physician Notes Patient is seen and examined at bedside. Chest x-ray today showed no acute process. Patient still has minimal cough. Also states having hip, knee pain no other complaints today. Physical Exam: Vitals signs as noted above General Appearance:Moderately built and nourished, no apparent distress Head: normocephalic, Atraumatic Eyes: normal inspection, left eye artificial; right pupil irregular-- baseline per patient Neck: supple, Trachea midline Respiratory/Chest: Normal breath sounds, CTA, No accessory muscle use Cardiovascular: S1, S2, +murmur Abdomen/GI:Soft, Non tender, Bowel sounds present Extremities/Musculoskeletal:normal inspection, right knee swelling, tender Neurologic/Psych:AAOX3, grossly no focal neurological deficits Skin: normal color, warm Acute on chronic heart failure with reduced ejection fraction Nonischemic cardiomyopathy Unable to tolerate Entresto due to hypotension Continue midodrine, Jardiance, metoprolol succinate, Aldactone, Lasix Appreciate cardiology input Monitor renal function, electrolytes, volume status Lasix increased to 40 mg daily (outpatient dose) Saturating well on room air Continue pulmonary hygiene, fluid restriction Had a brief episode of asymptomatic NSVT today Chest x-ray today showed no signs of volume overload Cardiology following Community-acquired pneumonia Completed antibiotic course Saturating well on room air Right knee effusion likely due to osteoarthritis Right hip fracture Follow-up synovial fluid studies/culture No crystals to suggest gout/pseudogout Orthopedics following--appreciate help Continue PT OT, fall precautions Will benefit from SNF placement Continue nonweightbearing right lower extremity. If cultures remain negative, Ortho plans to give intra-articular corticosteroid injection I personally interviewed and examined the patient at bedside. I have reviewed the advanced practitioner's documentation on the date of service referred in note and agree with plan. Patient's care is coordinated with Chikis HEBERT. Please refer to the documentation above for details of patient's presentation and for discussion of other issues. I spent a total [id number] coordinating, documenting, and providing care for this patient excluding time spent in the performance of separately billed services or time spent by another provider/QHP. Subjective Patient was seen and examined when she was sitting in her bedside chair in no apparent distress. She slept well and has been pivoting to the [facility]. She does complain of a cough that has been persistent. Around 1030; she reportedly had a 10 beat run of VT; asymptomatic. I returned to her room and she had returned to her bed; her nephew is at bedside. She was unaware of the episode. Spoke directly with Cardiology and discussed medication recommendations outlined below. See A/P for further details Review of Systems Review of Systems: Neuro: (-) Falls, trauma, slurred speech HEENT: (-) WOOD, dizziness, dysphagia, visual or auditory changes CV: (-) CP, palpitations, swelling Resp: (-) SOB GI: (-) appetite changes, N/V/D, bowel changes : (-) urinary changes Skin: (-) rashes Psych: (-) anxiety, depression Physical Exam Physical Exam: Neuro: AAOx4, PERRLA, no aphagia, memory changes, CNII-XII grossly intact HEENT: head normocephalic, moist mucus membranes. Left eye artificial CV: S1/S2, (+) Murmur, (-) Gallop or rub (-) edema, cap refill < 3 seconds Resp: Lungs CTA in all bush. On RA GI: Abdomen S/NT/ND, Ax4 bowel sounds, (-) CVA tenderness Musculoskeletal: 5/5 B/L UE strength, 5/5 B/L LE strength. No gait disturbance Skin: (-) rashes , (-) erythema. Psych: euthymic mood Results & Data Results & Data Vital Signs (Past 12 Hours) Vital Signs Temp Pulse Pulse Resp BP Pulse Ox O2 Del Method 04/16/25 05:35 60 04/16/25 04:36 36.5 C 59 L 20 94/62 L 98 Room Air 04/16/25 00:39 36.6 C 77 20 96/63 L 98 Room Air 04/15/25 23:59 63 04/15/25 20:05 36.6 C 81 20 102/69 94 Room Air 04/15/25 20:00 Room Air Laboratory Results Short CBC 04/16/25 Range/Units 05:29 WBC 5.58 (4.8-10.8) K/ul Hgb 12.5 (12.0-16.0) g/dl Hct 38.5 (37.0-47.0) % Plt Count 184 (130-400) K/uL BMP 04/16/25 05:29 Sodium 135 L Potassium 4.7 Chloride 100 Carbon Dioxide 31 BUN 38 H Creatinine 1.34 H Glucose 85 Calcium 8.7 (5) CKD (chronic kidney disease) stage 3, GFR 30-59 ml/min Chronic kidney disease stage 3 subtype: unspecified whether 3a or 3b Qualified Code(s): N18.30 - Chronic kidney disease, stage 3 unspecified
[2025-04-16 07:43] LABS: Hematocrit (blood only) 38.5 % (37.0-47.0); Hemoglobin 12.5 g/dl (12.0-16.0); Mean Corpuscular Hemoglobin 29.1 pg (25.0-34.0); Mean Corpuscular Volume 89.7 fL (80.0-100.0); Platelet Count 184 K/uL (130-400); RDW Standard Deviation 63.5 fL (36.4-46.3); Red Blood Count 4.29 M/uL (4.20-5.40); White Blood Count 5.58 K/ul (4.8-10.8)
[2025-04-16 08:00] LABS: Anion Gap 4.0 (3-11); Blood Urea Nitrogen 38.0 mg/dl (6-23); Calcium 8.7 mg/dl (8.6-10.3); Carbon Dioxide 31.0 mmol/L (21-32); Chloride 100.0 mmol/L (98-107); Creatinine Clr Calc Pharmacy 37.1 ml/min; Glucose 85.0 mg/dl (70-99(Fasting)); Magnesium 2.3 mg/dl (1.7-2.4); Potassium 4.7 mmol/L (3.5-5.1); Sodium 135.0 mmol/L (136-145)
[2025-04-16] MEDS: FUROSEMIDE 40 MG TAB PO SCH (09:07)
--- NOTE | 2025-04-16 10:23 | Cardiology Progress Note ---
Date of Service April 16, 2025 Assessment & Plan (1) Acute exacerbation of chronic heart failure: (2) Systolic congestive heart failure, NYHA class 3: (3) Chronic hypotension: (4) Complete heart block: (5) Cardiac pacemaker in situ: (6) Chronic atrial fibrillation: Plan Systolic congestive heart failure, drug-induced cardiomyopathy - Status post biventricular pacemaker/defibrillator upgrade on 05/12/2018, generator change on 05/14/[address] Giordano at [facility] - LVEF 20-25% - Chronic hypotension, off of most guideline directed medical therapies due to poor tolerance on multiple prior trials, including once again this admission - Volume status: Compensated - Device interrogation on January 19, 2025 demonstrated appropriate function, 7.5 years remaining longevity. Mode VVIR with lower rate set at 60 bpm. BiV paced 95%. Chronic atrial fibrillation. Underlying complete heart block. Medtronic device in situ, as above Recommendations: * Continue furosemide at 40 mg/day for now, and spironolactone at 12.5 mg by mouth on MWF * Increase apixaban (Eliquis) dosing to 5 mg twice per day * Continue metoprolol, midodrine, and rosuvastatin * ? Increase lower rate on device to 70 bpm. Admission and Anticipated Discharge Date Admission Date: April 07, 2025 Supervising Physician Co-Signing Physician Notes I have personally performed a history and physical examination on the patient. I have reviewed the advance practitioner's documentation, and I agree with, and take responsibility for the plan of care. 69-year-old female with subacute hip fracture to without surgical management. Improved from a heart failure perspective. A-fib rate controlled with ventricular pacing at 60 bpm. Continue current medications. Consider repr ogramming pacemaker basal rate up to 70 bpm as outpatient. Jonathan Johnson DO, [facility] Subjective Patient seen and examined. Chart, medications, and telemetry reviewed. Presented to the ER in April 07, 2025 with acute on chronic dyspnea, lower extremity peripheral edema, and weight gain. Received IV furosemide x 1 with improvement. Notes 2 mechanical falls in March, 1 tripping over a dog toy then 2 weeks later losing her shoe. After the second fall patient experienced considerable right hip pain, workup this admission revealing an intertrochanteric fracture possibly extending to the femur. Orthopedic recommendations are for nonweightbearing status for the next 2 weeks, possibly 6 + Cough. No chest pain, palpitations, unusual shortness of breath, increased edema, lightheadedness, dizziness, near syncope, fevers, rigors, melena, hematochezia, or hematuria. Review of Systems Review of Systems: Complete Review of Systems is as stated above, negative, or noncontributory. Physical Exam Physical Exam: General: A&Ox3. NAD. HEENT: New glasses. Sclera clear. Neck: Normal JVP. No carotid bruits. Heart: Regular, paced, at 70 bpm. Soft apical systolic murmur. No diastolic murmur. No rub. No gallop. Lungs: Decreased. Diminished. Fine bibasilar rales. No wheeze. Abdomen: +BS. Soft. Nontender. No masses or organomegaly. Extremities: Trace edema. Pulses: Posterior tibial=1/4. Results & Data Vital Signs (Past 12 Hours) Vital Signs Temp Pulse Pulse Resp BP Pulse Ox O2 Del Method 04/16/25 09:42 Room Air 04/16/25 08:13 36.4 C L 60 20 90/61 L 95 Room Air 04/16/25 05:35 60 04/16/25 04:36 36.5 C 59 L 20 94/62 L 98 Room Air 04/16/25 00:39 36.6 C 77 20 96/63 L 98 Room Air 04/15/25 23:59 63 Laboratory Results CBC 04/16/25 Range/Units 05:29 WBC 5.58 (4.8-10.8) K/ul RBC 4.29 (4.20-5.40) M/uL Hgb 12.5 (12.0-16.0) g/dl Hct 38.5 (37.0-47.0) % Plt Count 184 (130-400) K/uL Comprehensive Metabolic Panel 04/16/25 Range/Units 05:29 Sodium 135 L (136-145) mmol/L Potassium 4.7 (3.5-5.1) mmol/L Chloride 100 (98-107) mmol/L Carbon Dioxide 31 (21-32) mmol/L BUN 38 H (6-23) mg/dl Creatinine 1.34 H (0.6-1.2) mg/dl Glucose 85 (70-99(Fasting)) mg/dl Calcium 8.7 (8.6-10.3) mg/dl Intake and Output 04/15/25 04/16/25 04/16/25 22:59 06:59 14:59 Intake Total 400 / 950 Output Total 525 / 925 200 / 925 Balance - - Intake: Oral 400 / 950 Output: Urine Amount (Catheter) 525 / 725 200 / 725 External 525 / 725 200 / 725 Other: Other Intake Source ice chips ice chips Weight 65.8 kg Weight Measurement Method Built in [facility] Diagnostic Findings April 08, 2025 TTE: LVEF 20 to 25%. Diffuse hypokinesis. No thrombus. Mild mitral regurgitation. Mildly reduced RV systolic function. Moderate tricuspid regurgitation. Estimated PASP 42 mmHg, mild pulmonary hypertension Telemetry: Paced in the 60s PG Care Time/CCT Total # of Minutes Spent Total Time Spent with Patient: Total time spent is greater than 50% in coordination of care (as documented) at patient's floor/unit and/or counseling patient: Coding Level of Care Code 83916 SUB INP/OBS CARE 3/50MIN Diagnoses Acute exacerbation of chronic heart failure I50.9 Systolic congestive heart failure, NYHA class 3 I50.20 Chronic hypotension I95.89 Complete heart block I44.2 Cardiac pacemaker in situ Z95.0 Chronic atrial fibrillation I48.20
--- NOTE | 2025-04-16 13:43 | XRay Report ---
EXAM: Radiograph of the Chest 1 View INDICATION: Cough TECHNIQUE: Frontal view of the chest. COMPARISON: 04/07/2025 FINDINGS: Lungs and pleural spaces: No consolidation or pulmonary edema. No pleural effusion or pneumothorax. Heart: Stable enlargement and pacing wires. Mediastinum: Normal contour. Bones/joints: No fracture, erosion or dislocation. Soft tissues: No abnormality noted. No radiopaque foreign body noted. Upper abdomen: No abnormality noted. IMPRESSION: No acute cardiopulmonary disease. ACT 112: N/A Electronically signed by Martita Zamora 04-16-2025 13:43 PM
[2025-04-16] MEDS: APIXABAN 5 MG TABLET PO SCH (19:30)
[2025-04-17 06:44] LABS: Hematocrit (blood only) 35.5 % (37.0-47.0); Hemoglobin 12.1 g/dl (12.0-16.0); Mean Corpuscular Hemoglobin 30.0 pg (25.0-34.0); Mean Corpuscular Volume 87.9 fL (80.0-100.0); Platelet Count 191 K/uL (130-400); RDW Standard Deviation 61.3 fL (36.4-46.3); Red Blood Count 4.04 M/uL (4.20-5.40); White Blood Count 4.97 K/ul (4.8-10.8)
[2025-04-17 06:58] LABS: Anion Gap 6.0 (3-11); Blood Urea Nitrogen 39.0 mg/dl (6-23); Calcium 8.6 mg/dl (8.6-10.3); Carbon Dioxide 28.0 mmol/L (21-32); Chloride 102.0 mmol/L (98-107); Creatinine Clr Calc Pharmacy 42.1 ml/min; Glucose 94.0 mg/dl (70-99(Fasting)); Potassium 4.5 mmol/L (3.5-5.1); Sodium 136.0 mmol/L (136-145)
--- NOTE | 2025-04-17 07:12 | Hospitalist Progress Note ---
Date of Service April 17, 2025 Assessment & Plan (1) Acute on chronic heart failure with reduced ejection fraction (HFrEF, <= 40%): (2) Chronic atrial fibrillation: (3) Nonischemic cardiomyopathy: (4) Presence of combination internal cardiac defibrillator (ICD) and pacemaker: (5) CKD (chronic kidney disease) stage 3, GFR 30-59 ml/min: Plan Patient is 69-year-old female with PMH HTN, HLD, history drug induced cardiomyopathy with HFrEF, s/p ICD 03/2015, history complete heart block s/p pacemaker defibrillator in 05/2018, paroxysmal atrial fibrillation s/p cardioversion 12/23/2014 and 02/22/2018 and now permanent atrial fibrillation, anticoagulated on Eliquis, CKD III, hypothyroidism, Oiqmvxc-Jymwo-Tagrt disease, history of breast cancer and others listed below presented to ER on 04/07/25 with complaint of increased shortness of breath and was found to have acute exacerbat ion of HFrEF. Acute on chronic HFrEF Nonischemic cardiomyopathy ICD in place Chronic atrial fibrillation anticoagulated on Eliquis Ventricular Tachycardia 10/14/2024 echo: EF: 30-34%, severe diffuse left ventricular hypokinesis, right atrium severely enlarged, mild mitral regurgitation, mild tricuspid regurgitation, mild pulmonary hypertension 04/08/25 echo: EF: 20-25%, diffuse hypokinesis, mild mitral regurgitation, right ventricular systolic function mildly reduced, moderate tricuspid regurgitation, mild pulmonary hypertension Patient with continued soft BPs, HR controlled 1.8L FR Management limited by hypotension- not on Entresto/ACEi/ARB for this reason VT 10 beat run on 04/15, additional 4 beat run on 04/15 @ 1700, asymptomatic. Mg+ 2.4 today Neg 1L balance; appears euvolemic on exam, (-) LE edema Additional dose of IV Lasix 20 mg IV today Appreciate cards input- Lasix 40mg resumed, Toprol dose of 25mg BID, Jardiance, spironolactone 12.5mg MoWeFr, Eliquis for stroke ppx Recurrent Falls Right Femur Fracture mechanical falls x 2 in 03/2025 Seen at [facility] ER 03/28/[address] head, CT C-spine at that time Had ongoing right hip, right thigh, bilateral knee pain since fall with difficulty ambulating Noted unsteady gait in ER. Today patient able to actively flex and extend legs in bed which is improvement Hip/pelvis, R knee, Right femur and L knee xrays negative for fracture Venous doppler (-) for DVT CT Hip on 04/10 due to continued pain showed: Acute nondisplaced comminuted fracture of the greater trochanter of the right femur with possible intertrochanteric extension Orthopedics seen and evaluated and unable to obtain MRI given pacer/defibrillator * Recommend NWB RLE 2-4 weeks, use walker to assist with ambulation * Hip range of motion should be limited to 90 degrees of flexion or less. * PT/OT, analgesics, ice * Repeat x-ray of her right hip to check alignment of fracture for Sunday 04/15 - no change * Follow up as outpatient scheduled with [facility] R knee effusion Noted on 04/12, ortho notified and joint aspirated, WBCs 35K consistent with inflammation, known underlying OA, low concern for infxn but follow cx Awaiting cx results prior to possible intra-articular joint injection, no growth to date Negative for gout/pseudogout Continue Tylenol, PRN, ice - not a care home NSAID candidate given Eliquis use Remain NWB RLE 2-4 weeks. continue ice Plan for Ortho to drain as an outpatient Non-Productive cough: Completed tx with Doxy/Rocephin on 04/13for possible PNA. Repeat CXR on 04/16 improved. Continue Flutter valve, incentive spirometry, Mucinex, antitussives PRN add on procal level CKD III Monitor Cr (baseline cr ~1.3) On 04/17: 10/22 Monitor renal functions. Avoid nephrotoxic agents as able Hypothyroidism Continue levothyroxine Possible Pneumonia right lung: RESOLVED CXR: Possible early pneumonia medial right lung base. Procalcitonin negative Pt denies fever, chills Received Rocephin, doxycycline. Doxy completed on 04/13 Continue Flutter valve, incentive spirometry, Mucinex, antitussives PRN Hyperkalemia RESOLVED KCl had been held for a few days due to K of 5, resumed now that Entresto discontinued Monitor daily BMP Disposition: DVT Prophylaxis: Eliquis Dispo: denied [facility]. Plan for discharge Wednesday 04/18 @ [facility]. Next of Kin: emy Jarrell [phone] I spent a total of 58 minutes coordinating, documenting, and providing care for this patient excluding time spent in the performance of separately billed services or time spent by another provider/QHP. Admission and Anticipated Discharge Date Admission Date: April 07, 2025 Supervising Physician Co-Signing Physician Notes Patient is seen and examined at bedside. Subjectively feels about the same as yesterday. Cough improved. Still has some dyspnea. Continues to complain of right knee/hip pain. Physical Exam: Vitals signs as noted above General Appearance:Moderately built and nourished, no apparent distress Head: normocephalic, Atraumatic Eyes: normal inspection, left eye artificial; right pupil irregular-- baseline per patient Neck: supple, Trachea midline Respiratory/Chest: Normal breath sounds, CTA, No accessory muscle use Cardiovascular: S1, S2, +murmur Abdomen/GI:Soft, Non tender, Bowel sounds present Extremities/Musculoskeletal:normal inspection, right knee swelling, tender Neurologic/Psych:AAOX3, grossly no focal neurological deficits Skin: normal color, warm Acute on chronic heart failure with reduced ejection fraction Nonischemic cardiomyopathy Unable to tolerate Entresto due to hypotension Continue midodrine, Jardiance, metoprolol succinate, Aldactone, Lasix Appreciate cardiology input Monitor renal function, electrolytes, volume status Lasix increased to 40 mg daily (outpatient dose) Saturating well on room air Continue pulmonary hygiene, fluid restriction Continue diuretics per cardiology Received additional IV Lasix today Likely discharge to SNF tomorrow Community-acquired pneumonia Completed antibiotic course Saturating well on room air Right knee effusion likely due to osteoarthritis Right hip fracture Follow-up synovial fluid studies/culture No crystals to suggest gout/pseudogout Orthopedics following--appreciate help Continue PT OT, fall precautions Continue nonweightbearing right lower extremity. 2 to 4 weeks If cultures remain negative, Ortho plans to give intra-articular corticosteroid injection Synovial fluid cultures negative to date I personally interviewed and examined the patient at bedside. I have reviewed the advanced practitioner's documentation on the date of service referred in note and agree with plan. Patient's care is coordinated with Chikis HEBERT. Please refer to the documentation above for details of patient's presentation and for discussion of other issues. I spent a total [id number] coordinating, documenting, and providing care for this patient excluding time spent in the performance of separately billed services or time spent by another provider/QHP. Subjective Pt lying in her hospital bed in no apparent distress. Pt denies WOOD, dizziness, chest pain, N/V/D. She feels like it is harder for her to breath, she is on RA. inspiratory wheezes identified. Non-productive cough. Encouraged Incentive spirometry use. Pt c/o pain with moving on and off bedpan; difficult for NWB status. See A/P for further details. Review of Systems Review of Systems: Neuro: (-) Falls, trauma, slurred speech HEENT: (-) WOOD, dizziness, dysphagia, visual or auditory changes CV: (-) CP, palpitations, swelling Resp: (-) SOB GI: (-) appetite changes, N/V/D, bowel changes : (-) urinary changes Skin: (-) rashes Psych: (-) anxiety, depression Physical Exam Physical Exam: Neuro: AAOx4, PERRLA, no aphagia, memory changes, CNII-XII grossly intact HEENT: head normocephalic, moist mucus membranes. Left eye artificial CV: S1/S2, (+) Murmur, (-) Gallop or rub (-) edema, cap refill < 3 seconds Resp: Lungs CTA in all bush. On RA GI: Abdomen S/NT/ND, Ax4 bowel sounds, (-) CVA tenderness Musculoskeletal: 5/5 B/L UE strength, 5/5 B/L LE strength. No gait disturbance Skin: (-) rashes , (-) erythema. Psych: euthymic mood Results & Data Results & Data Vital Signs (Past 12 Hours) Vital Signs Temp Pulse Resp BP Pulse Ox O2 Del Method 04/17/25 04:21 36.8 C 59 L 20 92/62 L 98 Room Air 04/17/25 00:49 36.8 C 84 20 93/61 L 95 Room Air 04/16/25 20:37 36.7 C 60 20 95/63 L 96 Room Air Laboratory Results Short CBC 04/17/25 Range/Units 05:39 WBC 4.97 (4.8-10.8) K/ul Hgb 12.1 (12.0-16.0) g/dl Hct 35.5 L (37.0-47.0) % Plt Count 191 (130-400) K/uL [facility] 04/17/25 05:39 Sodium 136 Potassium 4.5 Chloride 102 Carbon Dioxide 28 BUN 39 H Creatinine 1.17 Glucose 94 Calcium 8.6 (5) CKD (chronic kidney disease) stage 3, GFR 30-59 ml/min Chronic kidney disease stage 3 subtype: unspecified whether 3a or 3b Qualified Code(s): N18.30 - Chronic kidney disease, stage 3 unspecified
--- NOTE | 2025-04-17 09:40 | Cardiology Progress Note ---
Date of Service April 17, 2025 Assessment & Plan (1) Acute exacerbation of chronic heart failure: (2) Systolic congestive heart failure, NYHA class 3: (3) Chronic hypotension: (4) Complete heart block: (5) Cardiac pacemaker in situ: (6) Chronic atrial fibrillation: Plan Longstanding systolic congestive heart failure, drug-induced cardiomyopathy, LVEF 20-25% Status post biventricular pacemaker/defibrillator upgrade on 05/12/2018, generator change on 05/14/[address] Giordano at [facility] [place] [facility] Device interrogation on January 19, 2025 demonstrated appropriate function, 7.5 years remaining longevity. Mode VVIR with lower rate set at 60 bpm. BiV paced 95%. Chronic hypotension, off of most guideline directed medical therapies due to poor tolerance on multiple prior trials, including once again this admission Chronic atrial fibrillation. Underlying complete heart block. Medtronic device in situ, as above Volume status: Mild decompensation. Recommendations: * IV furosemide this afternoon * Continue metoprolol, midodrine, rosuvastatin, and apixaban (Eliquis) at 5 mg twice per day * ? increase lower rate on device to 70 bpm as an outpatient Admission and Anticipated Discharge Date Admission Date: April 07, 2025 Supervising Physician Co-Signing Physician Notes I have personally performed a history and physical examination on the patient. I have reviewed the advance practitioner's documentation, and I agree with, and take responsibility for the plan of care. 69-year-old female with subacute hip fracture to without surgical management. Additional dose of IV furosemide given earlier today. Patient feeling better. No orthopnea or PND. A-fib rate controlled with ventricular pacing at 60 bpm. Continue current medications. Consider reprogramming pacemaker basal rate up to 70 bpm as outpatient. Jonathan Johnson DO, [facility] I spent a total of 22 minutes on the date of service in preparation, delivery, and documentation of the care provided to this patient, excluding any time spent in the performance of separately billed services. Subjective Patient seen and examined. Chart, medications, and telemetry reviewed. Moved to room 283 bed 2. States she is now bedbound. Hip pain when getting on and off the bedpan. Feels short of breath when laying down today. Nonproductive cough. No chest pain. No palpitations. No fevers or rigors. Review of Systems Review of Systems: Complete Review of Systems is as stated above, negative, or noncontributory. Physical Exam Physical Exam: General: A&Ox3. NAD. HEENT: New glasses. Sclera clear. Neck: Mildly elevated JVP. Heart: Regular, paced, at 66 bpm. Soft apical systolic murmur. No diastolic murmur. No rub. No gallop. Lungs: Decreased. Diminished. Fine bibasilar rales. No wheeze. Abdomen: +BS. Soft. Nontender. No masses or organomegaly. Extremities: Trace edema. Pulses: Posterior tibial=1/4. Results & Data Vital Signs (Past 12 Hours) Vital Signs Temp Pulse Pulse Resp BP Pulse Ox O2 Del Method 04/17/25 07:57 36.4 C L 60 20 101/66 95 Room Air 04/17/25 07:24 60 04/17/25 04:21 36.8 C 59 L 20 92/62 L 98 Room Air 04/17/25 00:49 36.8 C 84 20 93/61 L 95 Room Air Laboratory Results CBC 04/17/25 Range/Units 05:39 WBC 4.97 (4.8-10.8) K/ul RBC 4.04 L (4.20-5.40) M/uL Hgb 12.1 (12.0-16.0) g/dl Hct 35.5 L (37.0-47.0) % Plt Count 191 (130-400) K/uL Comprehensive Metabolic Panel 04/17/25 Range/Units 05:39 Sodium 136 (136-145) mmol/L Potassium 4.5 (3.5-5.1) mmol/L Chloride 102 (98-107) mmol/L Carbon Dioxide 28 (21-32) mmol/L BUN 39 H (6-23) mg/dl Creatinine 1.17 (0.6-1.2) mg/dl Glucose 94 (70-99(Fasting)) mg/dl Calcium 8.6 (8.6-10.3) mg/dl Intake and Output 04/16/25 04/17/25 04/17/25 22:59 06:59 14:59 Intake Total 600 / 960 Output Total 975 / 1375 Balance -375 / -415 Intake: Oral 600 / 960 Output: Urine Amount (Catheter) 975 / 1375 External 975 / 1375 Other: Weight 64.4 kg Weight Measurement Method Built in [facility] Diagnostic Findings Telemetry: Ventricular PG Care Time/CCT Total # of Minutes Spent Total Time Spent with Patient: Time spent personally evaluating patient, direct bedside care, interpretation of diagnostic studies, chart review, placing orders, discussion with other providers and/or family members, etc: 42 minutes Total time spent is greater than 50% in coordination of care (as documented) at patient's floor/unit and/or counseling patient: Coding Level of Care Code 61635 SUB INP/OBS CARE 2/35MIN Diagnoses Acute exacerbation of chronic heart failure I50.9 Systolic congestive heart failure, NYHA class 3 I50.20 Chronic hypotension I95.89 Complete heart block I44.2 Cardiac pacemaker in situ Z95.0 Chronic atrial fibrillation I48.20
[2025-04-17] MEDS: FUROSEMIDE INJ 20 MG/2 ML VIAL IV ONE (14:06)
[2025-04-18 06:55] LABS: Hematocrit (blood only) 36.9 % (37.0-47.0); Hemoglobin 11.8 g/dl (12.0-16.0); Mean Corpuscular Hemoglobin 28.4 pg (25.0-34.0); Mean Corpuscular Volume 88.7 fL (80.0-100.0); Platelet Count 190 K/uL (130-400); RDW Standard Deviation 61.6 fL (36.4-46.3); Red Blood Count 4.16 M/uL (4.20-5.40); White Blood Count 4.61 K/ul (4.8-10.8)
[2025-04-18 07:13] LABS: Anion Gap 7.0 (3-11); Blood Urea Nitrogen 36.0 mg/dl (6-23); Calcium 8.6 mg/dl (8.6-10.3); Carbon Dioxide 28.0 mmol/L (21-32); Chloride 102.0 mmol/L (98-107); Creatinine Clr Calc Pharmacy 38.2 ml/min; Glucose 91.0 mg/dl (70-99(Fasting)); Magnesium 2.1 mg/dl (1.7-2.4); Potassium 3.8 mmol/L (3.5-5.1); Sodium 137.0 mmol/L (136-145)
--- NOTE | 2025-04-18 09:01 | Cardiology Progress Note ---
Date of Service April 18, 2025 Assessment & Plan (1) Acute exacerbation of chronic heart failure: (2) Systolic congestive heart failure, NYHA class 3: (3) Chronic hypotension: (4) Complete heart block: (5) Cardiac pacemaker in situ: (6) Chronic atrial fibrillation: Plan Patient is 69-year-old female with past medical history that includes HTN, HLD, drug induced cardiomyopathy with HFrEF, s/p ICD 03/2015, history of complete heart block s/p pacemaker defibrillator in 05/2018, paroxysmal atrial fibrillation s/p cardioversion 12/23/2014 and 02/22/2018; patient now with permanent atrial fibrillation on Eliquis, CKD III, hypothyroidism, Ikptojk-Qzfxl-Cyxoa disease, and h/o breast cancer. Patient presented to the ER at [facility] with acute exacerbation of HFrEF and 5 lb weight gain (per patient) in last 2 days. Cardiology services requested for assessment and recommendations. 1. Acute exacerbation of CHF 2. Systolic CHF, NYHA Class III 3. Chronic hypotension 4. Cardiac pacemaker - biventricular pacemaker/defibrillator upgrade on 05/12/2018, generator change on 05/14/2024 5. Afib, chronic, on Eliquis -Patient with no acute cardiac complaints. -Telemetry reviewed: Paced, HR 60s. No acute events overnight. -Longstanding systolic congestive heart failure, drug-induced cardiomyopathy, LVEF 20-25% -Patient with biventricular pacemaker/defibrillator upgrade on 05/12/2018, generator change on 05/14/[address] [place]ordano [place] [facility] Device interrogation on January 19, 2025 demonstrated appropriate function, 7.5 years remaining longevity. Mode VVIR with lower rate set at 60 bpm. BiV paced 95%. -Chronic hypotension. Patient is not on guideline-directed medical therapies due to poor tolerance on multiple prior trials, including once again during this admission. -Chronic atrial fibrillation on Eliquis. Underlying complete heart block. Medtronic device in situ, as above -Volume status: Mild decompensation. Net negative fluid balance of 4.1L since admission. Please continue to monitor Is&Os. Patient c/o SOB when laying flat. Some crackles noted on physical exam. Will give one more dose of IV furosemide 20 mg this afternoon; order has been placed. Monitor and replace electrolytes as needed. (Recommend K > 4.0 & Mag > 2.0) -Continue metoprolol, midodrine, rosuvastatin -Continue Eliquis 5 mg twice per day -May consider increasing lower rate on pacemaker/defibrillator to 70 bpm as an outpatient. Case discussed with system dispatcher Dr. Johnson. Further recommendations pending his evaluation and assessment. I spent a total of 35 minutes on the date of service in preparation, delivery, and documentation of the care provided to this patient, excluding any time spent in the performance of separately billed services. [facility] Department of Cardiology, [facility] This chart was completed in part utilizing Speech Voice Recognition Software. Grammatical errors, random word insertions, pronoun errors, and incomplete sentences are an occasional consequence of this system due to software limitations, ambient noise, and hardware issues. Any formal questions or concerns about the content, text, or information contained within the body of this dictation should be directly addressed to the provider for clarification. Admission and Anticipated Discharge Date Admission Date: April 07, 2025 Supervising Physician Co-Signing Physician Notes I have personally performed a history and physical examination on the patient. I have reviewed the advance practitioner's documentation, and I agree with, and take responsibility for the plan of care. 69-year-old female with subacute hip fracture managed conservatively without surgery. Respiratory status improved with additional IV furosemide given 04/17/2025. Continues to note mild wheeze and nonproductive cough. No orthopnea or PND. A-fib rate controlled with ventricular pacing at 60 bpm. Recommend additional 20 mg IV furosemide this afternoon. Continue daily oral furosemide 40 mg daily and other medications as ordered. Consider reprogramming pacemaker basal rate up to 70 bpm as outpatient. Jonathan Johnson DO, [facility] I spent a total of 30 minutes on the date of service in preparation, delivery, and documentation of the care provided to this patient, excluding any time spent in the performance of separately billed services. Subjective Patient seen and examined today for follow-up. Offers no acute cardiac complaints. However, she does note some SOB when laying flat. Complains of right hip pain. Denies chest pain, palpitations, fevers, chills, or any other issues. Labs, diagnostics, vitals, and documentation reviewed. Telemetry reviewed: Paced, HR 60s. No acute events overnight. Review of Systems Review of Systems: All systems reviewed & are unremarkable except as noted in HPI & below Physical Exam Physical Exam: General: A&Ox3. NAD. HEENT: New glasses. Sclera clear. Neck: Mildly elevated JVP. Heart: Regular, paced, at 66 bpm. Soft apical systolic murmur. No diastolic murmur. No rub. No gallop. Lungs: Decreased. Diminished. Fine bibasilar rales. No wheeze. Abdomen: +BS. Soft. Nontender. No masses or organomegaly. Extremities: Trace edema. Pulses: Posterior tibial=1/4. Constitutional: WD/WN, vitals as above not in distress Eyes: PERRL, conjunctivae normal, anicteric sclerae Neck: normal visual inspection Respiratory: + cough; no respiratory distress Ausc ultation: + crackles Cardiovascular: Rate/Rhythm: regular rhythm Heart Sounds: + murmur (1/6 sy stolic murmur) Extremities: no edema (ankle findings consistent with her history of Prryveo-[id number]) Skin: no rashes, warm and dry Psychiatric: A+Ox3, euthymic affect Results & Data Vital Signs (Past 12 Hours) Vital Signs Temp Pulse Pulse Resp BP Pulse Ox O2 Del Method 04/18/25 08:14 36.4 C L 60 20 96/61 L 99 Room Air 04/18/25 07:29 70 04/18/25 03:22 36.4 C L 60 16 94/60 L 98 Room Air 04/17/25 23:00 36.6 C 60 18 92/58 L 99 Room Air 04/17/25 21:43 64 04/17/25 21:07 62 103/69 04/17/25 21:05 Room Air Laboratory Results CBC 04/18/25 Range/Units 06:29 WBC 4.61 L (4.8-10.8) K/ul RBC 4.16 L (4.20-5.40) M/uL Hgb 11.8 L (12.0-16.0) g/dl Hct 36.9 L (37.0-47.0) % Plt Count 190 (130-400) K/uL Comprehensive Metabolic Panel 04/18/25 Range/Units 06:29 Sodium 137 (136-145) mmol/L Potassium 3.8 (3.5-5.1) mmol/L Chloride 102 (98-107) mmol/L Carbon Dioxide 28 (21-32) mmol/L BUN 36 H (6-23) mg/dl Creatinine 1.32 H (0.6-1.2) mg/dl Glucose 91 (70-99(Fasting)) mg/dl Calcium 8.6 (8.6-10.3) mg/dl Intake and Output 04/17/25 04/18/25 04/18/25 22:59 06:59 14:59 Output Total 900 / 1751 100 / 1751 Balance -900 / -1131 -100 / -1131 Output: Urine Amount (Catheter) 900 / 1750 100 / 1750 External 900 / 1750 100 / 1750 Other: # Unmeasured Voids 1 Weight 67.5 kg Weight Measurement Method Built in [facility] Medications Administered Current Inpatient Medications Acetaminophen (Acetaminophen 500 Mg Tab) 1,000 mg PO Q8H PRN PRN Reason: mild Pain Or Fever Stop: 05/14/25 14:59 Apixaban (Apixaban 5 Mg Tablet) 5 mg PO BID [facility] Stop: 05/16/25 20:59 Last Admin: 04/18/25 08:33 Dose: 5 mg Bisacodyl (Bisacodyl 10 Mg Supp) 10 mg TN DAILY PRN PRN Reason: Constipation Stop: 05/10/25 12:27 Empagliflozin (Empagliflozin 10 Mg Tab) 10 mg PO QAM [facility] Stop: 05/08/25 08:59 Last Admin: 04/18/25 08:33 Dose: 10 mg Escitalopram Oxalate (Escitalopram Oxalate 10 Mg Tab) 5 mg PO QAM [facility] Stop: 05/08/25 08:59 Last Admin: 04/18/25 08:33 Dose: 5 mg Furosemide (Furosemide 40 Mg Tab) 40 mg PO QAM [facility] Stop: 05/16/25 08:59 Last Admin: 04/18/25 08:33 Dose: 40 mg Guaifenesin/Dextromethorphan (Guaifenesin/Dextrom Syrup 100mg/10mg 5ml Udc) 5 ml PO Q6H PRN PRN Reason: Cough Stop: 05/15/25 14:02 Last Admin: 04/17/25 21:05 Dose: 5 ml Promethazine HCl (Phenergan) 6.25 mg in 50.25 mls @ 201 mls/hr IV Q6H PRN PRN Reason: Nausea And Vomiting Stop: 05/07/25 18:33 Last Infusion: 04/09/25 18:22 Dose: Infused Levothyroxine Sodium (Levothyroxine Sodium 75 Mcg Tablet) 75 mcg PO DAILYBB [facility] Stop: 05/08/25 06:29 Last Admin: 04/18/25 05:40 Dose: 75 mcg Magnesium Hydroxide (Magnesium Hydroxide Susp 30 Ml Udc) 30 ml PO Q12H PRN PRN Reason: Constipation Stop: 05/07/25 18:33 Last Admin: 04/15/25 07:32 Dose: 30 ml Magnesium Oxide (Magnesium Oxide 400 Mg Tab) 400 mg PO QAM [facility] Stop: 05/08/25 09:14 Last Admin: 04/18/25 08:33 Dose: 400 mg Metoprolol Succinate (Metoprolol Succ 25mg Ext Rel Tab) 25 mg PO BID [facility] Stop: 05/10/25 09:29 Last Admin: 04/18/25 08:28 Dose: Not Given Miconazole Nitrate (Miconazole Nitrate Powder 85 Gm) 1 appln EXT PRN PRN PRN Reason: Affected Skin Folds Stop: 05/13/25 21:30 Midodrine (Midodrine Hcl 2.5 Mg Tab) 5 mg PO TID@0800,1200,1700 [facility] Stop: 05/11/25 07:59 Last Admin: 04/18/25 08:33 Dose: 5 mg Naloxone HCl (Naloxone Hcl 0.4 Mg/1 Ml Vial/Carp) 0.1 mg IV UD PRN PRN Reason: Opiate Overdose Stop: 05/10/25 12:27 Oxycodone HCl (Oxycodone Hcl Ir 5 Mg Tab (Immediate Release)) 5 mg PO Q6H PRN PRN Reason: Severe Pain (Scale 7, 8, 9,10) Stop: 04/23/25 10:01 Last Admin: 04/18/25 08:34 Dose: 5 mg Polyethylene Glycol (Polyethylene (Miralax) 17 Gm Pack) 17 gm PO DAILY [facility] Stop: 05/12/25 08:59 Last Admin: 04/18/25 08:36 Dose: Not Given Potassium Chloride (Potassium Chloride Crtab 20 Meq Tabcr) 20 meq PO QAM [facility] Stop: 05/08/25 08:59 Last Admin: 04/18/25 08:34 Dose: 20 meq Rosuvastatin Calcium (Rosuvastatin Calcium 20 Mg Tab) 20 mg PO [facility] Stop: 05/08/25 08:59 Last Admin: 04/18/25 08:33 Dose: 20 mg Senna/Docusate Sodium (Docusate Sodium/Senna 50/8.6mg Tab) [facility] Stop: 05/08/25 08:59 Last Admin: 04/18/25 08:34 Dose: 1 tab Spironolactone (Spironolactone 12.5 Mg Tab) 12.5 mg PO MoWeFr@0900 [facility] Stop: 05/08/25 08:59 Last Admin: 04/18/25 08:35 Dose: 12.5 mg Trolamine Salicylate (Trolamine Salicylate 10% Crm 255 Appln/85 Gm Tube) 1 appln EXT TID [facility] Stop: 05/12/25 13:59 Last Admin: 04/18/25 08:35 Dose: 1 appln Vitamin D (Cholecalciferol 25 Mcg (1000 Units) Tab) 50 [facility] Stop: 05/08/25 08:59 Last Admin: 04/18/25 08:33 Dose: 50 mcg PG Care Time/CCT Total # of Minutes Spent Total Time Spent with Patient: Total time spent is greater than 50% in coordination of care (as documented) at patient's floor/unit and/or counseling patient: Coding Level of Care Code 45862 SUB INP/OBS CARE 3/50MIN Diagnoses Acute exacerbation of chronic heart failure I50.9 Acute on chronic systolic congestive heart failure, NYHA class 3 I50.23 Congestive heart failure chronicity: acute on chronic Chronic hypotension I95.89 Complete heart block I44.2 Cardiac pacemaker in situ Z95.0 Chronic atrial fibrillation I48.20 (2) Systolic congestive heart failure, NYHA class 3 Congestive heart failure chronicity: acute on chronic Qualified Code(s): I50.23 - Acute on chronic systolic (congestive) heart failure
--- NOTE | 2025-04-18 09:27 | Orthopedic Progress Note ---
Date of Service April 18, 2025 Assessment & Plan (1) Closed right hip fracture: Plan: Comminuted greater trochanter fracture of the right hip with possible extension into the intertrochanteric region. MRI unable to be performed due to having a Cardiac defibrillator. Will continue conservative treatment plan. Nonweightbearing right lower extremity for the next 2 weeks, possibly 6 weeks. Use walker to assist with ambulation. Hip range of motion should be limited to 90 degrees of flexion or less. PT/OT Pain management anticoagulation per primary service. Ice to the right hip as needed for pain or swelling. Make sure there is thin cloth colors examiner between ice and patient's skin X-ray of the patient's right hip obtained 04/15 There is no further displacement of the fracture involving the greater trochanter Follow up as outpatient scheduled with [facility] (04/26 @ 12:45). We will sign off for now, please tiger text with any questions or concerns (2) Effusion, right knee: Plan: Effusion is trace this morning Crystal analysis showed rare crystals but not consistent with pseudogout or gout. WBCs was 35,000 suggestive inflammation. She does have underlying osteoarthritis and likely was experiencing an acute flare. Would recommend continuing the nonweightbearing (she already has this limitation due to her hip fracture) Ice to right knee as needed for pain or swelling. Make sure thin cloth colors examiner between ice and skin X-rays were reviewed which had been obtained 04/09/2025 showing moderate to severe tricompartment arthritis with no fracture. Patient on eliquis so unable to use penitentiary NSAIDs, could consider steroid taper if medically indicated Low concern for infection but discussed with patient today that we would hold off on any CSI until cx finalized and actually patient stated today that her pain was manageable currently wit PO meds She had a previous LTKA done by Dr Mcrae. She denies have any prior treatments or issues with her knee before. Currently she says her pain is manageable and would like to hold off on any CSI. We can address this when we see her in the office (04/26 @ 12:45) and if she has return of her pain again or doesn't seem to be improving and cultures are negative we could do a CSI at that time. All of her questions and concerns were address Sign off for now, please tiger text with any questions or concerns - we will continue to follow cultures Admission and Anticipated Discharge Date Admission Date: April 07, 2025 Subjective Patient was seen and examined at bedside this morning. She reports that she is overall doing well. Pain is currently controlled. She notes small improvement in her knee. She has not yet worked with therapy. Her hip is more painful than her knee. Physical Exam Physical Exam: No deformity noted with the patient's leg. She has some tenderness over the lateral aspect of her hip. No groin pain to the touch. She is able to fully wiggle her toes and dorsiflex and plantarflex her ankle although she is weak form her Charcot and says this is her baseline. She is able to slightly extend and flex her knee. No TTP today. No redness or warmth. She has trace joint effusion. 2+ dorsal pedal pulses present. Sensation intact distally to light touch. Results & Data Vital Signs (Past 12 Hours) Vital Signs Temp Pulse Pulse Resp BP Pulse Ox O2 Del Method 04/18/25 08:14 36.4 C L 60 20 96/61 L 99 Room Air 04/18/25 07:29 70 04/18/25 03:22 36.4 C L 60 16 94/60 L 98 Room Air 04/17/25 23:00 36.6 C 60 18 92/58 L 99 Room Air 04/17/25 21:43 64 Laboratory Results Microbiology 04/13/25 10:50 Gram Stain - Final Knee,Right Aerobic and Anaerobic Culture - Final No growth (1) Closed right hip fracture Encounter type: initial encounter Qualified Code(s): S72.001A - Fracture of unspecified part of neck of right femur, initial encounter for closed fracture
[2025-04-18] MEDS: FUROSEMIDE INJ 20 MG/2 ML VIAL IV ONE (14:48)
--- NOTE | 2025-04-18 15:41 | Hospitalist Progress Note ---
Date of Service April 18, 2025 Assessment & Plan (1) Acute on chronic heart failure with reduced ejection fraction (HFrEF, <= 40%): (2) Chronic atrial fibrillation: (3) Nonischemic cardiomyopathy: (4) Presence of combination internal cardiac defibrillator (ICD) and pacemaker: (5) CKD (chronic kidney disease) stage 3, GFR 30-59 ml/min: Plan 69-year-old female with PMH significant for HTN, HLD, history drug induced cardiomyopathy with HFrEF, s/p ICD 03/2015, history complete heart block s/p pacemaker defibrillator in 05/2018, paroxysmal atrial fibrillation s/p cardioversion 12/23/2014 and 02/22/2018 and now permanent atrial fibrillation, anticoagulated on Eliquis, CKD III, hypothyroidism, Fqwekjj-Nziux-Zserk disease, history of breast cancer and others listed below presented to ER on 04/07/25 with complaint of increased shortness of breath and is admitted for acute exacer bation of HFrEF. Acute on chronic HFrEF Nonischemic cardiomyopathy ICD in place Chronic atrial fibrillation anticoagulated on Eliquis Ventricular Tachycardia 10/14/2024 echo: EF: 30-34%, severe diffuse left ventricular hypokinesis, right atrium severely enlarged, mild mitral regurgitation, mild tricuspid regurgitation, mild pulmonary hypertension 04/08/25 echo: EF: 20-25%, diffuse hypokinesis, mild mitral regurgitation, right ventricular systolic function mildly reduced, moderate tricuspid regurgitation, mild pulmonary hypertension Patient with continued soft BPs, HR controlled Management limited by hypotension- did not tolerate trial of Entresto/ACEi/ARB for this reason VT 10 beat run on 04/15, additional 4 beat run on 04/15 @ 1700, asymptomatic Neg 1L balance; appears euvolemic on exam Low sodium diet, 1.8L FR Cardiology consulted: appreciate recs * Additional dose of IV Lasix 20 mg IV today * Added Midodine 5mg TID, Toprol dose decreased to 25mg BID, increased Eliquis dose to 5mg BID * Home lasix 40mg resumed, continue Jardiance, continue spironolactone * Anticipate dc tomorrow Recurrent Falls Right Femur Fracture Mechanical falls x 2 in 03/2025 Seen at [facility] ER 03/28/[address] head, CT C-spine at that time Had ongoing right hip, right thigh, bilateral knee pain since fall with difficulty ambulating Hip/pelvis, R knee, Right femur and L knee xrays negative for fracture Venous doppler (-) for DVT CT Hip on 04/10 due to continued pain showed: Acute nondisplaced comminuted fracture of the greater trochanter of the right femur with possible intertrochanteric extension Repeat x-ray of her right hip to check alignment of fracture for Sunday 04/15 - no change Orthopedics seen and evaluated and unable to obtain MRI given pacer/defibrillator * Recommend NWB RLE 2-6 weeks, use walker to assist with ambulation * Hip range of motion should be limited to 90 degrees of flexion or less * Pain control with PRN tylenol and oxycodone * PT/OT recommending acute rehab, CM following * Follow up as outpatient scheduled with [facility] on 04/26/2025 R knee effusion Noted on 04/12, ortho notified and joint aspirated, WBCs 35K consistent with inflammation, known underlying OA, culture negative, negative for gout/pseudogout Continue PRN tylenol and oxycodone, ice - not a correction NSAID candidate given Eliquis use Remain NWB RLE 2-6 weeks Plan for Ortho to discuss CSI outpatient at follow up appointment Non-Productive cough, possible PNA Completed tx with Doxy/Rocephin on 04/13 for possible PNA Repeat CXR on 04/16 improved Procal negative on 04/17 Continue Flutter valve, incentive spirometry, Mucinex, antitussives PRN CKD III Monitor Cr (baseline cr ~1.3) Cr 1.32 on 04/18 Avoid nephrotoxic agents as able Hypothyroidism Continue levothyroxine Depression Continue escitalopram DVT Prophylaxis: on Eliquis Code Status: FULL CODE PCP: Rose Marie Galloway Disposition: anticipate dc to [facility] tomorrow, CM following Patient seen in collaboration with Dr Alvarez. Please see addendum. I spent a total of 50 minutes coordinating, documenting and providing care for this patient excluding time spent in the performance of separately billed services or time spent by another provider/QHP. Admission and Anticipated Discharge Date Admission Date: April 07, 2025 Supervising Physician Co-Signing Physician Notes Patient is seen and examined at bedside. Complains of right hip pain. Denies any significant cough, dyspnea today. Cardiology recommended additional IV Lasix today. Physical Exam: Vitals signs as noted above General Appearance:Moderately built and nourished, no apparent distress Head: normocephalic, Atraumatic Eyes: normal inspection, left eye artificial; right pupil irregular-- baseline per patient Neck: supple, Trachea midline Respiratory/Chest: Normal breath sounds, CTA, No accessory muscle use Cardiovascular: S1, S2, +murmur Abdomen/GI:Soft, Non tender, Bowel sounds present Extremities/Musculoskeletal:normal inspection, right knee swelling, tender Neurologic/Psych:AAOX3, grossly no focal neurological deficits Skin: normal color, warm Acute on chronic heart failure with reduced ejection fraction Nonischemic cardiomyopathy Unable to tolerate Entresto due to hypotension Continue midodrine, Jardiance, metoprolol succinate, Aldactone, Lasix Appreciate cardiology input Monitor renal function, electrolytes, volume status Lasix increased to 40 mg daily (outpatient dose) Saturating well on room air Continue pulmonary hygiene, fluid restriction Continue diuretics per cardiology Received IV Lasix today Likely discharge to [facility] tomorrow Case management to help with discharge planning Community-acquired pneumonia Completed antibiotic course Saturating well on room air Respiratory symptoms much improved Right knee effusion likely due to osteoarthritis Right hip fracture No crystals to suggest gout/pseudogout Orthopedics following--appreciate help Continue PT OT, fall precautions Continue nonweightbearing right lower extremity. 2 to 4 weeks Synovial fluid cultures negative to date Needs follow-up with orthopedics on discharge I personally interviewed and examined the patient at bedside. I have reviewed the advanced practitioner's documentation on the date of service referred in note and agree with plan. Patient's care is coordinated with Jazmin HEBERT. Please refer to the documentation above for details of patient's presentation and for discussion of other issues. I spent a total [id number] coordinating, documenting, and providing care for this patient excluding time spent in the performance of separately billed services or time spent by another provider/QHP. Subjective Patient seen laying in bed Complaining of 7/10 right hip pain Reports SOB mostly at night regardless of laying flat or sitting up Denies headaches, chest pain, abdominal pain, N/V/D Review of Systems Review of Systems: All systems reviewed & are unremarkable except as noted in Subjective Physical Exam Physical Exam: General/Psych: WD/WN, laying in bed, NAD, conversing easily Head: normocephalic, atraumatic Eyes: artificial left eye, PERRL, conjunctivae pink ENT: external ear and nose normal, oropharynx normal Neck: normal visual inspection, trachea midline Respiratory: normal respiratory effort, lungs diminished in bases with slight crackles, no accessory muscle use Cardiovascular: regular rate and rhythm, no murmur/rub/gallop, no JVD Extremities: no cyanosis or clubbing, normal peripheral pulses, no BLE edema Abdomen/GI: normal bowel sounds, soft, nontender Neurologic/MSK: A+Ox3, motor strength 5/5, moves all extremities Skin: no rashes, normal color, warm and dry Results & Data Results & Data Vital Signs (Past 12 Hours) Vital Signs Temp Pulse Pulse Resp BP Pulse Ox O2 Del Method 04/18/25 11:10 36.4 C L 63 20 104/70 98 Room Air 04/18/25 08:14 36.4 C L 60 20 96/61 L 99 Room Air 04/18/25 07:29 70 Laboratory Results Short CBC 04/18/25 Range/Units 06:29 WBC 4.61 L (4.8-10.8) K/ul Hgb 11.8 L (12.0-16.0) g/dl Hct 36.9 L (37.0-47.0) % Plt Count 190 (130-400) K/uL BMP 04/18/25 06:29 Sodium 137 Potassium 3.8 Chloride 102 Carbon Dioxide 28 BUN 36 H Creatinine 1.32 H Glucose 91 Calcium 8.6 I have independently reviewed and interpreted patient's labs including CBC, BMP Medications Administered Current Inpatient Medications Acetaminophen (Acetaminophen 500 Mg Tab) 1,000 mg PO Q8H PRN PRN Reason: mild Pain Or Fever Stop: 05/14/25 14:59 Apixaban (Apixaban 5 Mg Tablet) 5 mg PO BID [facility] Stop: 05/16/25 20:59 Last Admin: 04/18/25 08:33 Dose: 5 mg Bisacodyl (Bisacodyl 10 Mg Supp) 10 mg UT DAILY PRN PRN Reason: Constipation Stop: 05/10/25 12:27 Empagliflozin (Empagliflozin 10 Mg Tab) 10 mg PO QAM JESSIKA Stop: 05/08/25 08:59 Last Admin: 04/18/25 08:33 Dose: 10 mg Escitalopram Oxalate (Escitalopram Oxalate 10 Mg Tab) 5 mg PO QAM [facility] Stop: 05/08/25 08:59 Last Admin: 04/18/25 08:33 Dose: 5 mg Furosemide (Furosemide 40 Mg Tab) 40 mg PO QAM [facility] Stop: 05/16/25 08:59 Last Admin: 04/18/25 08:33 Dose: 40 mg Guaifenesin/Dextromethorphan (Guaifenesin/Dextrom Syrup 100mg/10mg 5ml Udc) 5 ml PO Q6H PRN PRN Reason: Cough Stop: 05/15/25 14:02 Last Admin: 04/17/25 21:05 Dose: 5 ml Promethazine HCl (Phenergan) 6.25 mg in 50.25 mls @ 201 mls/hr IV Q6H PRN PRN Reason: Nausea And Vomiting Stop: 05/07/25 18:33 Last Infusion: 04/09/25 18:22 Dose: Infused Levothyroxine Sodium (Levothyroxine Sodium 75 Mcg Tablet) 75 mcg PO DAILYBB [facility] Stop: 05/08/25 06:29 Last Admin: 04/18/25 05:40 Dose: 75 mcg Magnesium Hydroxide (Magnesium Hydroxide Susp 30 Ml Udc) 30 ml PO Q12H PRN PRN Reason: Constipation Stop: 05/07/25 18:33 Last Admin: 04/15/25 07:32 Dose: 30 ml Magnesium Oxide (Magnesium Oxide 400 Mg Tab) [facility] [place]: 05/08/25 09:14 Last Admin: 04/18/25 08:33 Dose: 400 mg Metoprolol Succinate (Metoprolol Succ 25mg Ext Rel Tab) 25 mg PO BID [facility] Stop: 05/10/25 09:29 Last Admin: 04/18/25 08:28 Dose: Not Given Miconazole Nitrate (Miconazole Nitrate Powder 85 Gm) 1 appln EXT PRN PRN PRN Reason: Affected Skin Folds Stop: 05/13/25 21:30 Midodrine (Midodrine Hcl 2.5 Mg Tab) 5 mg PO TID@0800,1200,1700 [facility] Stop: 05/11/25 07:59 Last Admin: 04/18/25 13:11 Dose: 5 mg Naloxone HCl (Naloxone Hcl 0.4 Mg/1 Ml Vial/Carp) 0.1 mg IV UD PRN PRN Reason: Opiate Overdose Stop: 05/10/25 12:27 Oxycodone HCl (Oxycodone Hcl Ir 5 Mg Tab (Immediate Release)) 5 mg PO Q6H PRN PRN Reason: Severe Pain (Scale 7, 8, 9,10) Stop: 04/23/25 10:01 Last Admin: 04/18/25 08:34 Dose: 5 mg Polyethylene Glycol (Polyethylene (Miralax) 17 Gm Pack) 17 gm PO DAILY [facility] Stop: 05/12/25 08:59 Last Admin: 04/18/25 08:36 Dose: Not Given Potassium Chloride (Potassium Chloride Crtab 20 Meq Tabcr) 20 meq [facility] [place] 05/08/25 08:59 Last Admin: 04/18/25 08:34 Dose: 20 meq Rosuvastatin Calcium (Rosuvastatin Calcium 20 Mg Tab) 20 mg PO [facility] Stop: 05/08/25 08:59 Last Admin: 04/18/25 08:33 Dose: 20 mg Senna/Docusate Sodium (Docusate Sodium/Senna 50/8.6mg Tab) 1 tab PO [facility] Stop: 05/08/25 08:59 Last Admin: 04/18/25 08:34 Dose: 1 tab Spironolactone (Spironolactone 12.5 Mg Tab) 12.5 mg PO MoWeFr@0900 [facility] Stop: 05/08/25 08:59 Last Admin: 04/18/25 08:35 Dose: 12.5 mg Trolamine Salicylate (Trolamine Salicylate 10% Crm 255 Appln/85 Gm Tube) 1 appln EXT TID [facility] Stop: 05/12/25 13:59 Last Admin: 04/18/25 14:48 Dose: 1 appln Vitamin D (Cholecalciferol 25 Mcg (1000 Units) Tab) 50 mcg PO QAM [facility] Stop: 05/08/25 08:59 Last Admin: 04/18/25 08:33 Dose: 50 mcg (5) CKD (chronic kidney disease) stage 3, GFR 30-59 ml/min Chronic kidney disease stage 3 subtype: unspecified whether 3a or 3b Qualified Code(s): N18.30 - Chronic kidney disease, stage 3 unspecified
[2025-04-19 07:56] LABS: Anion Gap 7.0 (3-11); Blood Urea Nitrogen 35.0 mg/dl (6-23); Calcium 8.7 mg/dl (8.6-10.3); Carbon Dioxide 29.0 mmol/L (21-32); Chloride 100.0 mmol/L (98-107); Creatinine Clr Calc Pharmacy 43.1 ml/min; Glucose 84.0 mg/dl (70-99(Fasting)); Magnesium 2.0 mg/dl (1.7-2.4); Potassium 3.7 mmol/L (3.5-5.1); Sodium 136.0 mmol/L (136-145)
[2025-04-19] MEDS: POTASSIUM CHLORIDE CRTAB 20 MEQ TABCR PO STA (08:35)
--- NOTE | 2025-04-19 14:20 | Cardiology Progress Note ---
Date of Service April 19, 2025 Assessment & Plan (1) Acute on chronic heart failure with reduced ejection fraction (HFrEF, <= 40%): (2) Closed right hip fracture: (3) Chronic hypotension: (4) Complete heart block: (5) Cardiac pacemaker in situ: (6) Chronic atrial fibrillation: Plan 69-year-old female with subacute hip fracture managed conservatively without surgery and chronic heart failure with reduced ejection fraction. Volume status improved with additional doses of IV furosemide. Currently appears euvolemic. Rate controlled atrial fibrillation on telemetry. Chronically anticoagulated with Eliquis. Continue daily oral furosemide 40 mg daily and other medications as ordered. Consider reprogramming pacemaker basal rate up to 70 bpm as outpatient. No further inpatient cardiac testing or intervention recommended at this time. Cardiology will sign off. Please call with additional concerns/questions. Jonathan Johnson DO, [facility] Admission and Anticipated Discharge Date Admission Date: April 07, 2025 Subjective 69-year-old female seen and examined at the bedside. Feeling better today. Received additional dose of IV furosemide yesterday. Cough/wheeze improved. Denies chest discomfort or heaviness. Telemetry reveals atrial fibrillation with a ventricular paced rhythm in the 60s. Results & Data Vital Signs (Past 12 Hours) Vital Signs Temp Pulse Pulse Resp BP Pulse Ox O2 Del Method 04/19/25 11:57 36.3 C L 92 H 17 118/80 100 Room Air 04/19/25 08:25 Room Air 04/19/25 07:38 36.6 C 60 18 96/62 L 97 Room Air 04/19/25 07:20 60 04/19/25 04:58 36.4 C L 60 18 94/59 L 97 Room Air PG Care Time/CCT Total # of Minutes Spent Total Time Spent with Patient: Total time spent is greater than 50% in coordination of care (as documented) at patient's floor/unit and/or counseling patient: Coding Level of Care Code 42383 SUB INP/OBS CARE 3/50MIN Diagnoses Acute on chronic heart failure with reduced ejection fraction (HFrEF, <= 40%) I50.23 Closed fracture of right hip, initial encounter S72.001A Encounter type: initial encounter Chronic hypotension I95.89 Complete heart block I44.2 Cardiac pacemaker in situ Z95.0 Chronic atrial fibrillation I48.20 (2) Closed right hip fracture Encounter type: initial encounter Qualified Code(s): S72.001A - Fracture of unspecified part of neck of right femur, initial encounter for closed fracture
--- NOTE | 2025-04-19 15:18 | Hospitalist Progress Note ---
Date of Service April 19, 2025 Assessment & Plan (1) Acute on chronic heart failure with reduced ejection fraction (HFrEF, <= 40%): (2) Chronic atrial fibrillation: (3) Nonischemic cardiomyopathy: (4) Presence of combination internal cardiac defibrillator (ICD) and pacemaker: (5) CKD (chronic kidney disease) stage 3, GFR 30-59 ml/min: Plan 69-year-old female with PMH significant for HTN, HLD, history drug induced cardiomyopathy with HFrEF, s/p ICD 03/2015, history complete heart block s/p pacemaker defibrillator in 05/2018, paroxysmal atrial fibrillation s/p cardioversion 12/23/2014 and 02/22/2018 and now permanent atrial fibrillation, anticoagulated on Eliquis, CKD III, hypothyroidism, Pwbjvcz-Hnrsf-Owihp disease, history of breast cancer and others listed below presented to ER on 04/07/25 with complaint of increased shortness of breath and is admitted for acute exacer bation of HFrEF. Acute on chronic HFrEF Nonischemic cardiomyopathy ICD in place Chronic atrial fibrillation anticoagulated on Eliquis Ventricular Tachycardia 10/14/2024 echo: EF: 30-34%, severe diffuse left ventricular hypokinesis, right atrium severely enlarged, mild mitral regurgitation, mild tricuspid regurgitation, mild pulmonary hypertension 04/08/25 echo: EF: 20-25%, diffuse hypokinesis, mild mitral regurgitation, right ventricular systolic function mildly reduced, moderate tricuspid regurgitation, mild pulmonary hypertension Patient with continued soft BPs, HR controlled Management limited by hypotension- did not tolerate trial of Entresto/ACEi/ARB for this reason VT 10 beat run on 04/15, additional 4 beat run on 04/15 @ 1700, asymptomatic Neg 1L balance; appears euvolemic on exam Low sodium diet, 1.8L FR Cardiology consulted: appreciate recs * Added Midodine 5mg TID, Toprol dose decreased to 25mg BID, increased Eliquis dose to 5mg BID * Home lasix 40mg resumed, continue Jardiance, continue spironolactone * Anticipate dc tomorrow Recurrent Falls Right Femur Fracture Mechanical falls x 2 in 03/2025 Seen at [facility] 03/28/[address] head, CT C-spine at that time Had ongoing right hip, right thigh, bilateral knee pain since fall with difficulty ambulating Hip/pelvis, R knee, Right femur and L knee xrays negative for fracture Venous doppler (-) for DVT CT Hip on 04/10 due to continued pain showed: Acute nondisplaced comminuted fracture of the greater trochanter of the right femur with possible intertrochanteric extension Repeat x-ray of her right hip to check alignment of fracture for Sunday 04/15 - no change Orthopedics seen and evaluated and unable to obtain MRI given pacer/defibrillator * Recommend NWB RLE 2-6 weeks, use walker to assist with ambulation * Hip range of motion should be limited to 90 degrees of flexion or less * Pain control with PRN tylenol and oxycodone * PT/OT recommending acute rehab, patient accepted at [facility] but unable to set up transportation until tomorrow * Follow up as outpatient scheduled with [facility] on 04/26/2025 R knee effusion Noted on 04/12, ortho notified and joint aspirated, WBCs 35K consistent with inflammation, known underlying OA, culture negative, negative for gout/pseudogout Continue PRN tylenol and oxycodone, ice - not a residential NSAID candidate given Eliquis use Remain NWB RLE 2-6 weeks Plan for Ortho to discuss CSI outpatient at follow up appointment Non-Productive cough, possible PNA Completed tx with Doxy/Rocephin on 04/13 for possible PNA Repeat CXR on 04/16 improved Procal negative on 04/17 Continue Flutter valve, incentive spirometry, Mucinex, antitussives PRN CKD III Monitor Cr (baseline cr ~1.3) Cr 1.32 on 04/18 Avoid nephrotoxic agents as able Hypothyroidism Continue levothyroxine Depression Continue escitalopram DVT Prophylaxis: on Eliquis Code Status: FULL CODE PCP: Rose Marie Galloway Disposition: anticipate dc to [facility] tomorrow pending transportation arrangement Patient seen in collaboration with Dr Alvarez. Please see addendum. I spent a total of 50 minutes coordinating, documenting and providing care for this patient excluding time spent in the performance of separately billed services or time spent by another provider/QHP. Admission and Anticipated Discharge Date Admission Date: April 07, 2025 Supervising Physician Co-Signing Physician Notes Patient is seen and examined at bedside. No new complaints. No plan for additional IV diuresis today. Continues to complain of right hip pain. Denies any significant cough, dyspnea today. Waiting for rehab placement Physical Exam: Vitals signs as noted above General Appearance:Moderately built and nourished, no apparent distress Head: normocephalic, Atraumatic Eyes: normal inspection, left eye artificial; right pupil irregular-- baseline per patient Neck: supple, Trachea midline Respiratory/Chest: Normal breath sounds, CTA, No accessory muscle use Cardiovascular: S1, S2, +murmur Abdomen/GI:Soft, Non tender, Bowel sounds present Extremities/Musculoskeletal:normal inspection, right knee swelling, tender Neurologic/Psych:AAOX3, grossly no focal neurological deficits Skin: normal color, warm Acute on chronic heart failure with reduced ejection fraction Nonischemic cardiomyopathy Unable to tolerate Entresto due to hypotension Continue midodrine, Jardiance, metoprolol succinate, Aldactone, Lasix Appreciate cardiology input Monitor renal function, electrolytes, volume status Lasix increased to 40 mg daily (outpatient dose) Saturating well on room air Continue pulmonary hygiene, fluid restriction Volume status improved with IV diuresis. Consideration for reprogramming of ICD as outpatient. Needs follow-up with cardiology as outpatient Waiting for rehab placement Likely discharge tomorrow. Community-acquired pneumonia Completed antibiotic course Saturating well on room air Respiratory symptoms much improved Right knee effusion likely due to osteoarthritis Right hip fracture No crystals to suggest gout/pseudogout Orthopedics following--appreciate help Continue PT OT, fall precautions Continue nonweightbearing right lower extremity. 2 to 4 weeks Synovial fluid cultures negative to date Needs follow-up with orthopedics on discharge I personally interviewed and examined the patient at bedside. I have reviewed the advanced practitioner's documentation on the date of service referred in note and agree with plan. Patient's care is coordinated with Jazmin HEBERT. Please refer to the documentation above for details of patient's presentation and for discussion of other issues. I spent a total [id number] coordinating, documenting, and providing care for this patient excluding time spent in the performance of separately billed services or time spent by another provider/QHP. Subjective Patient seen laying in bed Reports hip pain 7/10 Feels like her breathing is improved Denies headaches, dizziness, chest pain, abdominal pain, N/V/D Review of Systems Review of Systems: All systems reviewed & are unremarkable except as noted in Subjective Physical Exam Physical Exam: General/Psych: WD/WN, laying in bed, NAD, conversing easily Head: normocephalic, atraumatic Eyes: artificial left eye, abnormal R pupil, PERRL, conjunctivae pink ENT: external ear and nose normal, oropharynx normal Neck: normal visual inspection, trachea midline Respiratory: normal respiratory effort, lungs diminished in bases without rhonchi or crackles, no accessory muscle use Cardiovascular: regular rate and rhythm, no murmur/rub/gallop, no JVD Extremities: no cyanosis or clubbing, normal peripheral pulses, no BLE edema Abdomen/GI: normal bowel sounds, soft, nontender Neurologic/MSK: A+Ox3, motor strength 5/5, moves all extremities, sensation intact to BL toes Skin: no rashes, normal color, warm and dry Results & Data Results & Data Vital Signs (Past 12 Hours) Vital Signs Temp Pulse Pulse Resp BP Pulse Ox O2 Del Method 04/19/25 11:57 36.3 C L 92 H 17 118/80 100 Room Air 04/19/25 08:25 Room Air 04/19/25 07:38 36.6 C 60 18 96/62 L 97 Room Air 04/19/25 07:20 60 04/19/25 04:58 36.4 C L 60 18 94/59 L 97 Room Air Laboratory Results BMP 04/19/25 06:32 Sodium 136 Potassium 3.7 Chloride 100 Carbon Dioxide 29 BUN 35 H Creatinine 1.14 Glucose 84 Calcium 8.7 I have independently reviewed and interpreted patient's labs including BMP. Medications Administered Current Inpatient Medications Acetaminophen (Acetaminophen 500 Mg Tab) 1,000 mg PO Q8H PRN PRN Reason: mild Pain Or Fever Stop: 05/14/25 14:59 Apixaban (Apixaban 5 Mg Tablet) 5 mg PO BID [facility] Stop: 05/16/25 20:59 Last Admin: 04/19/25 08:31 Dose: 5 mg Bisacodyl (Bisacodyl 10 Mg Supp) 10 mg DE DAILY PRN PRN Reason: Constipation Stop: 05/10/25 12:27 Empagliflozin (Empagliflozin 10 Mg Tab) 10 mg PO QAM [facility] Stop: 05/08/25 08:59 Last Admin: 04/19/25 08:30 Dose: 10 mg Escitalopram Oxalate (Escitalopram Oxalate 10 Mg Tab) 5 mg PO QAM [facility] Stop: 05/08/25 08:59 Last Admin: 04/19/25 08:30 Dose: 5 mg Furosemide (Furosemide 40 Mg Tab) 40 mg PO QAM [facility] Stop: 05/16/25 08:59 Last Admin: 04/19/25 08:31 Dose: 40 mg Guaifenesin/Dextromethorphan (Guaifenesin/Dextrom Syrup 100mg/10mg 5ml Udc) 5 ml PO Q6H PRN PRN Reason: Cough Stop: 05/15/25 14:02 Last Admin: 04/17/25 21:05 Dose: 5 ml Promethazine HCl (Phenergan) 6.25 mg in 50.25 mls @ 201 mls/hr IV Q6H PRN PRN Reason: Nausea And Vomiting Stop: 05/07/25 18:33 Last Infusion: 04/09/25 18:22 Dose: Infused Levothyroxine Sodium (Levothyroxine Sodium 75 Mcg Tablet) 75 mcg PO DAILYBB [facility] Stop: 05/08/25 06:29 Last Admin: 04/19/25 06:01 Dose: 75 mcg Magnesium Hydroxide (Magnesium Hydroxide Susp 30 Ml Udc) 30 ml PO Q12H PRN PRN Reason: Constipation Stop: 05/07/25 18:33 Last Admin: 04/15/25 07:32 Dose: 30 ml Magnesium Oxide (Magnesium Oxide 400 Mg Tab) [facility] [place] Stop: 05/08/25 09:14 Last Admin: 04/19/25 08:30 Dose: 400 mg Metoprolol Succinate (Metoprolol Succ 25mg Ext Rel Tab) 25 mg PO BID [facility] Stop: 05/10/25 09:29 Last Admin: 04/19/25 08:31 Dose: Not Given Miconazole Nitrate (Miconazole Nitrate Powder 85 Gm) 1 appln EXT PRN PRN PRN Reason: Affected Skin Folds Stop: 05/13/25 21:30 Midodrine (Midodrine Hcl 2.5 Mg Tab) 5 mg PO TID@0800,1200,1700 [facility] Stop: 05/11/25 07:59 Last Admin: 04/19/25 13:25 Dose: 5 mg Naloxone HCl (Naloxone Hcl 0.4 Mg/1 Ml Vial/Carp) 0.1 mg IV UD PRN PRN Reason: Opiate Overdose Stop: 05/10/25 12:27 Oxycodone HCl (Oxycodone Hcl Ir 5 Mg Tab (Immediate Release)) 5 mg PO Q6H PRN PRN Reason: Severe Pain (Scale 7, 8, 9,10) Stop: 04/23/25 10:01 Last Admin: 04/19/25 14:48 Dose: 5 mg Potassium Chloride (Potassium Chloride Crtab 20 Meq Tabcr) 20 meq PO [facility] Stop: 05/08/25 08:59 Last Admin: 04/19/25 08:35 Dose: 20 meq Rosuvastatin Calcium (Rosuvastatin Calcium 20 Mg Tab) 20 mg PO [facility] Stop: 05/08/25 08:59 Last Admin: 04/19/25 08:31 Dose: 20 mg Senna/Docusate Sodium (Docusate Sodium/Senna 50/8.6mg Tab) 1 tab PO [facility] Stop: 05/08/25 08:59 Last Admin: 04/19/25 08:35 Dose: 1 tab Spironolactone (Spironolactone 12.5 Mg Tab) 12.5 mg PO MoWeFr@0900 [facility] Stop: 05/08/25 08:59 Last Admin: 04/18/25 08:35 Dose: 12.5 mg Trolamine Salicylate (Trolamine Salicylate 10% Crm 255 Appln/85 Gm Tube) 1 appln EXT TID [facility] Stop: 05/12/25 13:59 Last Admin: 04/19/25 13:25 Dose: 1 appln Vitamin D (Cholecalciferol 25 Mcg (1000 Units) Tab) 50 [facility]cg [facility] [place] Stop: 05/08/25 08:59 Last Admin: 04/19/25 08:29 Dose: 50 mcg (5) CKD (chronic kidney disease) stage 3, GFR 30-59 ml/min Chronic kidney disease stage 3 subtype: unspecified whether 3a or 3b Qualified Code(s): N18.30 - Chronic kidney disease, stage 3 unspecified
[2025-04-20 00:05] VITALS: RESP 20
[2025-04-20 00:28] VITALS: PULSE 60
[2025-04-20 08:19] VITALS: BP 94/54; TEMP 97.5; O2SAT 95
--- NOTE | 2025-04-20 11:00 | Discharge Summary ---
Discharge Summary Date of Service April 20, 2025 Principal Dx & Hospital Course #1 = Principal Diagnosis (1) Acute on chronic heart failure with reduced ejection fraction (HFrEF, <= 40%): (2) Chronic atrial fibrillation: (3) Nonischemic cardiomyopathy: (4) Presence of combination internal cardiac defibrillator (ICD) and pacemaker: (5) CKD (chronic kidney disease) stage 3, GFR 30-59 ml/min: Plan 69-year-old female with PMH significant for HTN, HLD, history drug induced cardiomyopathy with HFrEF, s/p ICD 03/2015, history complete heart block s/p pacemaker defibrillator in 05/2018, paroxysmal atrial fibrillation s/p cardiover reinier 12/23/2014 and 02/22/2018 and now permanent atrial fibrillation, anticoagulated on Eliquis, CKD III, hypothyroidism, [place] disease, history of breast cancer and others listed below presented to ER on 04/07/25 with complaint of increased shortness of breath and was admitted for acute exacerbation of HFrEF. Acute on chronic HFrEF Nonischemic cardiomyopathy ICD in place Chronic atrial fibrillation anticoagulated on Eliquis Ventricular Tachycardia 10/14/2024 echo: EF: 30-34%, severe diffuse left ventricular hypokinesis, right atrium severely enlarged, mild mitral regurgitation, mild tricuspid regurgitation, mild pulmonary hypertension 04/08/25 echo: EF: 20-25%, diffuse hypokinesis, mild mitral regurgitation, right ventricular systolic function mildly reduced, moderate tricuspid regurgitation, mild pulmonary hypertension Patient with continued soft BPs, HR controlled Management limited by hypotension- did not tolerate trial of Entresto/ACEi/ARB for this reason VT 10 beat run on 04/15, additional 4 beat run on 04/15 @ 1700, asymptomatic Appears euvolemic on exam Low sodium diet, 1.8L FR Cardiology consulted: * Added Midodine 5mg TID, Toprol dose decreased to 25mg BID, increased Eliquis dose to 5mg BID * Home lasix 40mg resumed, continue Jardiance, continue spironolactone Recurrent Falls Right Femur Fracture Mechanical falls x 2 in March 2025 Seen at [facility] ER 03/28/[address] head, CT C-spine at that time Had ongoing right hip, right thigh, bilateral knee pain since fall with difficulty ambulating Hip/pelvis, R knee, Right femur and L knee xrays negative for fracture Venous doppler (-) for DVT CT Hip on 04/10 due to continued pain showed: Acute nondisplaced comminuted frac ture of the greater trochanter of the right femur with possible intertrochanteric extension Repeat x-ray of her right hip to check alignment of fracture for Sunday 04/15 - no change Orthopedics seen and evaluated and unable to obtain MRI given pacer/defibrillator * Recommend NWB RLE 2-6 weeks, use walker to assist with ambulation * Hip range of motion should be limited to 90 degrees of flexion or less * Pain control with PRN tylenol and oxycodone * PT/OT recommended acute rehab * Follow up as outpatient scheduled with [facility] on 04/26/2025 R knee effusion Noted on 04/12, ortho notified and joint aspirated WBCs 35K consistent with inflammation, known underlying OA, culture negative, negative for gout/pseudogout Continue PRN tylenol and oxycodone, ice - not a long-term NSAID candidate given Eliquis use Remain NWB RLE 2-6 weeks Plan for Ortho to discuss CSI outpatient at follow up appointment on 04/26/2025 Non-Productive cough, possible PNA Completed tx with Doxy/Rocephin on 04/13 for possible PNA Repeat CXR on 04/16 improved Procal negative on 04/17 CKD III Monitor Cr (baseline cr ~1.3) Cr 1.32 on 04/18 Avoid nephrotoxic agents as able Hypothyroidism Continue levothyroxine Depression Continue escitalopram Patient seen in collaboration with Dr Dave. Please see addendum. Notes For Next Care Provider 69 year old female with significant PMH who was admitted at [facility] from 04/07- 04/20/2025 for acute on chronic HFrEF who was found to also have a right hip fracture and right knee effusion. Echocardiogram showed worsening of heart failure and Cardiology was consulted and made changes to medication regimen as detailed below. Orthopedics was consulted for hip fracture and right knee effusion and will follow up with patient outpatient on 04/26/2025. Recommend non- weightbearing to RLE and pain control until then. Patient was discharged to [facility] rehab. 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 Patient reports past several days with increased exertional shortness of breath and orthopnea. She has noticed increased BLE edema. She reports past several days is up 5 pounds. Denies chest pain. Reports taking her home diuretics as prescribed. States some lightheaded sensation with ambulation intermittently. Patient states in March she had 2 falls. Reports the first fall she tripped over a dog toy. Reports second fall her shoe came off causing her to fall. She states she hit her head. She was seen in [facility] ER on 03/28/2025 and had negative imaging of head and C-spine. Patient states had bruising to chest and bilateral lower extremities and left foot. Reports bruising is slowly starting to improve. States since fall she has had pain to right hip and right knee with ambulation and is having difficulty ambulating. Prior to fall did not require any assistive devices. Denies fever/chills, diaphoresis, N/V/D, WOOD, syncope, vision changes, neck pain, cough, palpitations, rhinorrhea, abdominal pain, paresthesias, rashes, urinary symptoms. Admission Exam Per Admitting Provider General: no distress, WDWN Head: normocephalic, atraumatic Eyes: conjunctiva non-injected, anicteric ENT: normal inspection external ears, nose, mucous membranes moist Neck: supple, trachea midline Lungs: no respiratory distress at rest sitting up in bed, +rales bases right worse than left CV: irregularly irregular, rate 62, 1-2+pitting pretibial edema Abd: normal BS, soft, non-tender Ext: no cyanosis, no calf tenderness; RLE: right hip non-tender to palpation, very limited active ROM right hip as pt reports anterior hip pain with attempt at ROM. right knee non-tender to palpation but tenderness reproduced with flexion of knee. distal pulses palpable Neuro: A&O x 3, no focal deficits noted, normal affect Skin: warm, dry, +ecchymosis left dorsal foot, +ecchymosis bilateral shins Discharge Exam General/Psych: WD/WN, laying in bed, NAD, conversing easily Head: normocephalic, atraumatic Eyes: artificial left eye, abnormal R pupil, PERRL, conjunctivae pink ENT: external ear and nose normal, oropharynx normal Neck: normal visual inspection, trachea midline Respiratory: normal respiratory effort, lungs diminished in bases without rhonchi or crackles, no accessory muscle use Cardiovascular: regular rate and rhythm, no murmur/rub/gallop, no JVD Extremities: no cyanosis or clubbing, normal peripheral pulses, no BLE edema Abdomen/GI: normal bowel sounds, soft, nontender Neurologic/MSK: A+Ox3, motor strength 5/5, moves all extremities, sensation intact to BL toes Skin: no rashes, normal color, warm and dry Updated Medication List Medication Instructions Recorded Confirmed Type cholecalciferol (vitamin D3) 50 50 mcg PO QAM 11/24/24 04/07/25 History mcg (2,000 unit) tablet (Vitamin D3) empagliflozin 10 mg tablet 10 mg PO QAM 11/24/24 04/07/25 History (Jardiance) levothyroxine 75 mcg tablet 75 mcg PO DAILYBB 11/24/24 04/07/25 History rosuvastatin 20 mg tablet 20 mg PO QAM 11/24/24 04/07/25 History spironolactone 25 mg tablet 12.5 mg PO 3XWK 11/24/24 04/07/25 History escitalopram oxalate 5 mg tablet 5 mg PO QAM 01/19/25 04/07/25 History oxycodone 10 mg tablet 10 mg PO QID PRN Pain 01/19/25 04/07/25 History sennosides 8.6 mg-docusate sodium 1 tab PO QAM 01/19/25 04/07/25 History 50 mg tablet (Senexon-S) albuterol sulfate 90 mcg/actuation 2 inh inhalation Q6H PRN shortness 01/22/25 04/07/25 Rx aerosol inhaler of breath or wheezing #8.5 grams furosemide 40 mg tablet 40 mg PO QAM 04/07/25 04/07/25 History apixaban 5 mg tablet (Eliquis) 5 mg PO BID #1 tab 04/20/25 Rx magnesium oxide 400 mg (241.3 mg 400 mg PO QAM #1 tab 04/20/25 Rx magnesium) tablet metoprolol succinate 25 mg 25 mg PO BID #1 tab 04/20/25 Rx tablet,extended release 24 hr midodrine 2.5 mg tablet 5 mg (2 x 2.5 mg) PO 04/20/25 Rx TID@0800,1200,1700 #1 tab potassium chloride 20 mEq 20 meq PO QAM #1 tab 04/20/25 Rx tablet,extended release(part/cryst) Hospital Stay Data Consultations 04/07/25 16:02 ED Decision to Admit Stat 04/09/25 08:20 Consult Cardiology Routine 04/10/25 12:13 Consult Orthopedic Surgery Routine Diagnostic Imagining Performed Chest X-Ray 04/07/25 15:15 XR chest 1V portable CLINICAL HISTORY: Chest pain, nonspecific COMPARISON STUDY: 03/28/2025 FINDINGS: Stable pacemaker. Stable cardiomegaly without pulmonary vascular congestion. There is an interval small area of patchy opacity medial right lung base. No other consolidation or pleural effusion. No pneumothorax. IMPRESSION: Possible early pneumonia medial right lung base. ACT 112: Negative or not required by law. Electronically signed by: Marvin Bar M.D. 04/07/2025 3:46 PM Hip/Pelvis X-Ray 04/07/25 17:10 EXAMINATION: X-ray hip right 2 view with pelvis CLINICAL HISTORY: Fall PRIORS: CT 01/19/2025 TECHNIQUE: AP view pelvis, 2 views right hip FINDINGS: Left total hip arthroplasty present in unchanged and appearance. Jobs-tf-[id number] degenerative change of the right hip present with no acute displaced fracture or dislocation. Pubic symphysis is not widened. Obturator rings are unremarkable. Sacroiliac joints are patent. Prominent osteophyte of the superolateral acetabulum and superolateral aspect of the humeral head. No soft tissue abnormality. IMPRESSION: 1. No plain film evidence of an acute osseous abnormality. 2. Advanced degenerative change of the right hip with anatomy that may predispose to femoral acetabular impingement. Electronically signed by Maggie 04-07-2025 7:27 PM Knee X-Ray 04/07/25 17:10 EXAMINATION: X-ray knee right 3 view CLINICAL HISTORY: Fall PRIORS: None TECHNIQUE: Frontal, lateral and patella view. FINDINGS: Moderate osseous demineralization noted. Alignment maintained. Diffuse edema throughout the visualized subcutaneous tissues. Moderate to advanced tricompartmental degenerative change of the right knee with peaking of the tibial spines. No acute or displaced fracture or dislocation. Enthesophytes of the patella noted. No suprapatellar joint effusion. No subcutaneous gas. Moderate lateral patella subluxation. IMPRESSION: 1. No plain film evidence of an acute osseous abnormality. 2. Osseous demineralization with tricompartmental degenerative change and diffuse edema throughout the soft tissues. Electronically signed by Maggie 04-07-2025 7:27 PM Venous Doppler Study 04/08/25 09:45 HISTORY: Bilateral lower extremity swelling. TECHNIQUE: Bilateral lower extremity venous Doppler evaluation for DVT. COMPARISON: None. FINDINGS: The bilateral common femoralVeins, greater saphenous junctions, femoral veins, popliteal veins appear color Doppler patent and compressible. Color Doppler flow is demonstrated in the deep femoral,posterior tibial, peroneal, and anterior tibial veins. Respiratory variation and augmentation is noted. IMPRESSION: No evidence of lower extremity DVT. Electronically signed by Harris Hagan 04-08-2025 3:54 PM Knee X-Ray 04/09/25 09:54 XR knee RT 3V CLINICAL HISTORY: h/o fall. Right knee pain, ecchymosis COMPARISON: Right knee radiographs April 07, 2025. FINDINGS: Alignment of the right knee is anatomic with the exception of lateral patellar tilt. There are no fractures within the right knee. There is no right knee joint effusion. Suprapatellar joint space calcific densities are present. Severe patellofemoral compartment joint space narrowing is noted. There is moderate lateral compartment joint space narrowing. Tricompartmental osteophytosis is present. IMPRESSION: 1. No fractures within the right knee. No right knee joint effusion. 2. Moderate to severe tricompartmental osteoarthritis of the right knee. ACT 112: Negative or not required by law. Electronically signed by: Tomas Walker M.D. 04/09/2025 11:49 AM Femur X-Ray 04/09/25 10:45 XR femur RT 2V routine CLINICAL HISTORY: pain thigh. recent fall COMPARISON: Pelvis and right hip radiographs April 07, 2025. CT of the abdomen and pelvis March 28, 2025. FINDINGS: There are no fractures within the right femur. No osseous lesions are noted. Suprapatellar calcific densities are noted. There is no right knee joint effusion. Severe right hip osteoarthritis is present. There are also moderate to severe degenerative changes within the right knee. IMPRESSION: 1. No fractures within the right femur. 2. Severe right hip osteoarthritis. 3. Moderate to severe right knee osteoarthritis. ACT 112: Negative or not required by law. Electronically signed by: Tomas Walker M.D. 04/09/2025 11:47 AM Knee X-Ray 04/09/25 13:05 XR knee LT 3V CLINICAL HISTORY: left knee pain, h/o fall COMPARISON: None FINDINGS: Alignment of the left knee is anatomic. Left knee arthroplasty is intact. There is no periprosthetic fracture or lucency. No left knee joint effusion is present. Distal aspect of the femoral component of left hip arthroplasty is partially imaged. There is mild infrapatellar soft tissue swelling. IMPRESSION: 1. Intact total left knee arthroplasty. No periprosthetic fracture or lucency. 2. No left knee joint effusion. 3. Mild infrapatellar soft tissue swelling. ACT 112: Negative or not required by law. Electronically signed by: Tomas Walker M.D. 04/09/2025 2:[address] 04/10/25 11:[address] WITHOUT CONTRAST CLINICAL HISTORY: Right thigh pain. COMPARISON STUDY: Right femur and right knee radiographs April 09, 2025. TECHNIQUE: Axial images of the right femur were obtained without IV contrast. Sagittal and coronal reformats were viewed. A dose lowering technique was utilized adhering to the principles of ALARA. FINDINGS: There is an acute nondisplaced minimally comminuted fracture of the greater trochanter of the right femur. There is possible intertrochanteric extension of the fracture. No additional fractures within the right femur are identified. There is moderate joint space narrowing is severe osteophytosis of the right hip. Moderate to severe tricompartmental osteoarthritis of the right knee is also noted. A right popliteal cyst is incidentally noted. Subcutaneous edema of the lateral right thigh is incidentally noted. IMPRESSION: 1. Acute nondisplaced minimally comminuted fracture of the greater trochanter of the right femur with possible intertrochanteric extension of the fracture. MRI of the right hip could be obtained for further evaluation if indicated. 2. Moderate to severe right hip and right knee osteoarthritis. ACT 112: Negative or not required by law. Electronically signed by: Tomas Walker M.D. 04/10/2025 11:[address] 04/10/25 11:00 CT hip RT wo con CLINICAL HISTORY: Right hip and right thigh pain. COMPARISON STUDY: CT of the abdomen and pelvis January 19, 2025. Right femur radiographs April 09, 2025. TECHNIQUE: Axial images of the right hip were obtained without IV contrast. Sagittal and coronal reformats were viewed. A dose lowering technique was utilized adhering to the principles of ALARA. FINDINGS: There is an acute comminuted nondisplaced fracture of the greater trochanter of the right femur. There is possible intertrochanteric extension. There is moderate joint space narrowing and extensive osteophytosis of the right hip. No additional fractures are identified. Subcutaneous edema of the lateral right thigh is present without well-defined fluid collection. IMPRESSION: 1. Acute nondisplaced comminuted fracture of the greater trochanter of the right femur with possible intertrochanteric extension. MRI of the right hip could be obtained to evaluate for intertrochanteric extension if indicated. 2. Moderate to severe right hip osteoarthritis. ACT 112: Negative or not required by law. Electronically signed by: Tomas Walker M.D. 04/10/2025 11:49 AM Hip X-Ray 04/15/25 08:00 XR hip RT min 2V CLINICAL HISTORY: right hip fracture; check alignment COMPARISON: Right hip CT April 10, 2025. Right femur radiographs April 09, 2025. FINDINGS: Left hip arthroplasty is partially imaged. Joint space narrowing and extensive osteophytosis of the right hip is again noted. The acute nondisplaced fracture of the greater trochanter of the right femur remains nondisplaced. No displaced right hip fractures are present. IMPRESSION: 1. No change in alignment of an acute nondisplaced fracture of the greater trochanter of the right femur, better depicted on prior CT. 2. Severe right hip osteoarthritis. ACT 112: Negative or not required by law. Electronically signed by: Tomas Walker M.D. 04/15/2025 8:58 AM Chest X-Ray 04/16/25 12:30 EXAM: Radiograph of the Chest 1 View INDICATION: Cough TECHNIQUE: Frontal view of the chest. COMPARISON: 04/07/2025 FINDINGS: Lungs and pleural spaces: No consolidation or pulmonary edema. No pleural effusion or pneumothorax. Heart: Stable enlargement and pacing wires. Mediastinum: Normal contour. Bones/joints: No fracture, erosion or dislocation. Soft tissues: No abnormality noted. No radiopaque foreign body noted. Upper abdomen: No abnormality noted. IMPRESSION: No acute cardiopulmonary disease. ACT 112: N/A Electronically signed by Martita Zamora 04-16-2025 13:43 PM Pending Results Patient Have Any Pending Studies at Discharge: No Discharge Instructions Given to Patient (Per Discharging Provider) You presented to the hospital on 04/07/2025 with shortness of breath, leg swelling, and weight gain and were admitted for an acute exacerbation of your chronic heart failure. You were treated with IV furosemide (lasix) and we consulted Cardiology who made changes to your heart medications - please see below. You also had right hip pain after a fall prior to admission. We obtained imaging studies which revealed a right hip fracture. We consulted Orthopedics who recommended you remain nonweightbearing on the right lower extremity for 2-6 weeks so you will need to use a walker. They will follow up with you outpatient and obtain x-rays - your appointment is scheduled for 04/26/2025 at 1:00pm. You saw PT and OT who recommended that you go to an acute rehab facility after hospitalization. Therefore, you are being discharged to [facility]. You also had right knee pain after a fall prior to admission. We obtained imaging studies which revealed right knee arthritis. You also had fluid accumulation. We consulted Orthopedics who performed drainage of your right knee which was suggestive of inflammation and negative for infection. They considered doing a steroid injection into your right knee, but you declined this inpatient as your pain is manageable. They will discuss this with you further at your follow up appointment. MEDICATION CHANGES: Eliquis increased to 5 mg by mouth twice daily Metoprolol succinate decreased to 25 mg twice daily Added midodrine 5 mg by mouth three times per day SUMMARY OF TEST RESULTS: Hip x-ray showed fracture of hip and severe osteoarthritis PENDING TEST RESULTS: None RECOMMENDATIONS FOR FOLLOW-UP: Please follow up with your PCP after rehab Please follow up with Cardiology Follow up with Orthopedics as scheduled on 04/26/2025 at 1:00pm OTHER INSTRUCTIONS: Seek medical attention if you have: * temperature above 101 * chest pain or trouble breathing * abdominal pain, nausea, vomiting * diarrhea, dark stools or bloody stools * any unanswered questions or concerns Call 911 if symptoms are severe. It has been a pleasure taking care of you. Please take care of yourself. If you have any questions regarding your recent hospitalization please contact [facility] and request Carmencita Arriagaist @ [phone]. Total Time Total Time Spent Total Time Spent (In Minutes): I spent a total of 35 minutes coordinating, documenting and providing care for this patient excluding time spent in the performance of separately billed services or time spent by another provider/QHP. Supervising Physician Co-Signing Physician Notes Attending addendum: The patient was seen and examined in medical telemetry unit She has been feeling much better and denies any significant symptoms She is ambulating without any difficulties and denies any chest pain, palpitation or shortness of breath with ambulation No dizziness and no abdominal pain nausea or vomiting She is ready to be discharged this morning On examination Lying in bed without any acute distress Remains hemodynamically stable blood pressure on the lower side at 94/54 Chest was clear to auscultate bilaterally HeartS1-S2, regular Abdomenbenign Extremitiesno edema CNSalert, awake and oriented x 3, no focal sensory or motor deficit appreciated All labs, imaging studies and medications reviewed Acute on chronic heart failure with reduced EF, chronic atrial fibrillation, recurrent fallspatient has been evaluated by pressure test operator and the patient remains stable without any acute symptoms Fall with right femur fracture evaluated by will have and outpatient appointment Overall medically stable and ready to be discharged today Her significant other medical conditions remained stable Agree with assessment and plan as outlined above by ANUP Ruiz and take the full responsibility of care in the hospital Dr Brenda Dave
== END 2025-04-20 10:00 | DRG 291 ==
LOC: ED 14:47 → SUATTDRO 16:32 → 2N 16:32

== ENCOUNTER 2025-06-07 17:16 | Inpatient (IN) ==
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
[2025-06-07 17:43] LABS: Hematocrit (blood only) 39.2 % (37.0-47.0); Hemoglobin 12.4 g/dl (12.0-16.0); Immature Granulocytes # (auto) 0.01 K/uL (0.01-0.20); Immature Granulocytes % (auto) 0.2 %; Mean Corpuscular Hemoglobin 26.0 pg (25.0-34.0); Mean Corpuscular Volume 82.2 fL (80.0-100.0); Platelet Count 148 K/uL (130-400); RDW Standard Deviation 58.4 fL (36.4-46.3); Red Blood Count 4.77 M/uL (4.20-5.40); White Blood Count 5.25 K/ul (4.8-10.8)
--- NOTE | 2025-06-07 17:47 | XRay Report ---
Chest radiograph, one view History: 04/16/2025 Comparison: None Findings: Single AP view of the chest performed. There is some new mild, right basilar nodular opacity. Pleural effusion. No pneumothorax. The cardiomediastinal silhouette is within normal limits. Normal pulmonary vascularity. No evidence for lymphadenopathy. Left chest wall 3-lead AICD. No visualized bony or soft tissue abnormality. Impression: New right basilar nodular opacity, concerning for infection, versus possibly atelectasis. Electronically signed by Javad Mcduffie 06-07-2025 5:47 PM
[2025-06-07 17:59] LABS: Alanine Aminotransferase 10.0 U/L (7-52); Albumin Globulin Ratio 1.0 (0.9-2); Alkaline Phosphatase 78.0 U/L (34-104); Anion Gap 9.0 (3-11); Bilirubin,Total 2.1 mg/dl (0.2-1.0); Blood Urea Nitrogen 21.0 mg/dl (6-23); Calcium 9.8 mg/dl (8.6-10.3); Carbon Dioxide 29.0 mmol/L (21-32); Chloride 97.0 mmol/L (98-107); Creatinine Clr Calc Pharmacy 39.6 ml/min; Globulin 3.6 gm/dl (2.5-4.0); Glucose 111.0 mg/dl (70-99(Fasting)); Magnesium 2.1 mg/dl (1.7-2.4); Potassium 3.3 mmol/L (3.5-5.1); Sodium 135.0 mmol/L (136-145); Total Protein 7.1 gm/dl (6.0-8.3)
[2025-06-07 18:16] LABS: INR 1.6 (0.9-1.1); Partial Thromboplastin Time 32 Seconds (21-31); Prothrombin Time 16.3 Seconds (9.0-12.0)
[2025-06-07] MEDS: FUROSEMIDE 40 MG/4 ML VIAL IV ONE (18:25)
[2025-06-07] MEDS: POTASSIUM CHLORIDE 10 MEQ TABCR PO STA (18:25)
[2025-06-07] MEDS ORDERED: POLYETHYLENE (MIRALAX) 17 GM PACK PO PRN (21:37)
[2025-06-07] MEDS ORDERED: ACETAMINOPHEN 325 MG TAB PO PRN (21:37)
[2025-06-07] MEDS ORDERED: NITROGLYCERIN SL 0.4 MG/TAB TAB SL PRN (21:37)
[2025-06-07] MEDS ORDERED: ALBUTEROL HFA 8 GM INHALER INH PRN (21:37)
[2025-06-07] MEDS: POTASSIUM CHLORIDE CRTAB 20 MEQ TABCR PO STA (21:49)
[2025-06-07 22:08] LABS: Appearance Urine Clear (Clear); Bacteria Urine Automated None Seen (None Seen); Cast Urine Automated 0-2 /lpf (0-2); Epithelial Cell Urine Auto 0-2 /hpf (0-2); Glucose Urine UA 1+ (Negative); WBC Urine Automated 0-5 /hpf (0-5)
[2025-06-07] MEDS: APIXABAN 5 MG TABLET PO SCH (22:17)
[2025-06-07] MEDS: METOPROLOL SUCC 25MG EXT REL TAB PO SCH (22:18)
--- NOTE | 2025-06-08 02:12 | CT Scan Report ---
Exam(s): CT CHEST Without Contrast EXAM: CT Chest Without Intravenous Contrast CLINICAL HISTORY: Reason for exam: cough, fever, pneumonia?. TECHNIQUE: Axial computed tomography images of the chest without intravenous contrast. CTDI is 11.03 mGy and DLP is 372.06 mGy-cm. Automated exposure control was utilized for the study. A dose lowering technique was utilized adhering to the principles of ALARA. COMPARISON: CT Chest dated 03/28/2025 FINDINGS: Lungs: See below. Pleural space: Small to moderate right pleural effusion, increased since the prior. Associated right lower lobe atelectasis. No pneumothorax. Heart: See below. Bones/joints: Unremarkable. No acute fracture. Soft tissues: Unremarkable. Vasculature: Unremarkable. No thoracic aortic aneurysm. Lymph nodes: Unremarkable. No enlarged lymph nodes. Tubes, lines and devices: Stable left chest wall implanted cardiac device and cardiomegaly. IMPRESSION: Small to moderate right pleural effusion, increased since the prior. Associated right lower lobe atelectasis. Electronically signed by: Dalton Ramsay M.D. 06/08/25 02:10 AM
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
[2025-06-08] MEDS: LEVOTHYROXINE SODIUM 75 MCG TABLET PO SCH (06:17)
[2025-06-08 06:57] LABS: Hematocrit (blood only) 35.8 % (37.0-47.0); Hemoglobin 11.9 g/dl (12.0-16.0); Immature Granulocytes # (auto) 0.01 K/uL (0.01-0.20); Immature Granulocytes % (auto) 0.2 %; Mean Corpuscular Hemoglobin 27.2 pg (25.0-34.0); Mean Corpuscular Volume 81.9 fL (80.0-100.0); Platelet Count 147 K/uL (130-400); RDW Standard Deviation 59.1 fL (36.4-46.3); Red Blood Count 4.37 M/uL (4.20-5.40); White Blood Count 4.44 K/ul (4.8-10.8)
[2025-06-08 07:15] LABS: Anion Gap 4.0 (3-11); Blood Urea Nitrogen 23.0 mg/dl (6-23); Calcium 9.4 mg/dl (8.6-10.3); Carbon Dioxide 31.0 mmol/L (21-32); Chloride 101.0 mmol/L (98-107); Creatinine Clr Calc Pharmacy 35.6 ml/min; Glucose 75.0 mg/dl (70-99(Fasting)); Magnesium 2.1 mg/dl (1.7-2.4); Potassium 3.9 mmol/L (3.5-5.1); Sodium 136.0 mmol/L (136-145)
[2025-06-08] MEDS: CHOLECALCIFEROL 25 MCG (1000 UNITS) TAB PO SCH (09:05)
[2025-06-08] MEDS: MIDODRINE HCL 2.5 MG TAB PO SCH (09:05)
[2025-06-08] MEDS: DOCUSATE SODIUM/SENNA 50/8.6MG TAB PO SCH (09:05)
[2025-06-08] MEDS: ESCITALOPRAM OXALATE 10 MG TAB PO SCH (09:06)
[2025-06-08] MEDS: EMPAGLIFLOZIN 10 MG TAB PO SCH (09:06)
[2025-06-08] MEDS: NYSTATIN POWDER 15GM BTL EXT SCH (09:07)
[2025-06-08] MEDS: POTASSIUM CHLORIDE CRTAB 20 MEQ TABCR PO SCH (09:07)
[2025-06-08] MEDS: MAGNESIUM OXIDE 400 MG TAB PO SCH (09:07)
[2025-06-08] MEDS: FUROSEMIDE 40 MG/4 ML VIAL IV SCH (09:07)
[2025-06-08] MEDS: ROSUVASTATIN CALCIUM 20 MG TAB PO SCH (09:08)
[2025-06-08] MEDS: SPIRONOLACTONE 12.5 MG TAB PO SCH (09:08)
[2025-06-08] MEDS: LORATADINE 10 MG TAB PO SCH (12:25)
--- NOTE | 2025-06-08 12:55 | Electrocardiogram Report ---
Test Reason : Blood Pressure : */* mmHG Vent. Rate : 61 BPM Atrial Rate : 0 BPM P-R Int : * ms QRS Dur : 136 ms QT Int : 480 ms P-R-T Axes : * 191 44 degrees QTcB Int : 483 ms Ventricular-paced rhythm Abnormal ECG When compared with ECG of 07-Apr-2025 14:53, Vent. rate has decreased by 16 bpm Confirmed by Javad Lamb ([id number]) on 06/08/2025 12:54:57 PM Referred By: REFERRED SELF Confirmed By: Javad Lamb
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
[2025-06-08 14:23] LABS: Chlamydia pneumoniae PCR Not Detected (NotDetected); Coronavirus 229E PCR Not Detected (NotDetected); Coronavirus CoV-2 (COVID19)PCR Not Detected (NotDetected); Coronavirus HKU1 PCR Not Detected (NotDetected); Coronavirus NL63 PCR Not Detected (NotDetected); Coronavirus OC43PCR Not Detected (NotDetected); Human Metapneumovirus PCR Not Detected (NotDetected); Parainfluenza Virus 1 PCR Not Detected (NotDetected); Parainfluenza Virus 2 PCR Not Detected (NotDetected); Parainfluenza Virus 3 PCR Not Detected (NotDetected); Parainfluenza Virus 4 PCR Not Detected (NotDetected); Respiratory Syncytial VirusPCR Not Detected (NotDetected); Rhinovirus/Enterovirus PCR Not Detected (NotDetected)
--- NOTE | 2025-06-08 14:46 | CT Scan Report ---
CT hip RT wo con HISTORY: 69 years-old Female Closed right hip fracture follow up follow-up study patient with an acu te right greater trochanteric fracture COMPARISON: CT 04/10/2025, radiographs 06/08/2025 TECHNIQUE: Multiple axial CT images of the right hip were obtained without IV contrast. A dose loweri ng technique was used consistent with the principals of ELMO. FINDINGS: Left hip arthroplasty again noted on the transfer car operator localizer images. Moderate to severe osteoarthritis of the right hip redemonstrated. Healing subacute greater trochanteric fracture demonstrates unchanged alignment. No additional acute fracture, dislocation or avascular necrosis. Demineralized appearance of the bones. No definite intertrochanteric fracture extension on this exam. The imaged intrapelvic structures are unremarkable. Trace free pelvic fluid. Colonic diverticulosis. Urinary bladder wall thickening. Lateral subcutaneous edema of the right hip and thigh. IMPRESSION: 1. Healing subacute right greater trochanteric fracture demonstrates unchanged alignment. 2. Moderate to severe osteoarthritis of the right hip. ACT 112: Negative or not required by law. The above report was generated using voice recognition software. It may contain grammatical, syntax o r spelling errors. Electronically signed by: Grey Webster M.D. 06/08/2025 2:45 PM
--- NOTE | 2025-06-08 16:13 | XRay Report ---
XR hip RT 2V w pelvis CLINICAL HISTORY: greater trochanter fracture follow up right hip pain COMPARISON: 05/10/2025 FINDINGS: There are advanced arthritic changes present within the right hip. There is a protrusio ac etabular deformity. There are no acute fractures. There is slight irregularity of the cortex of the s uperior aspect of the greater trochanter in the right, consistent with a healing nondisplaced fractur e as was previously described.. There are postsurgical changes of a left hip arthroplasty. On this si ngle projection there is an equivocal slight eccentric position of the prosthetic femoral head with r espect to the acetabular cup IMPRESSION: 1. Right acetabular protrusio deformity 2. Healing nondisplaced right superior greater trochanteric fracture. ACT 112: Negative or not required by law. Electronically signed by: Kenney Lubin M.D. 06/08/2025 4:12 PM
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
[2025-06-08] MEDS: MIDODRINE HCL 2.5 MG TAB PO STA (19:39)
[2025-06-08] MEDS: ACETAMINOPHEN 325 MG TAB PO STA (19:40)
--- NOTE | 2025-06-08 20:11 | XRay Report ---
Single frontal view of the chest Comparison made with prior exam dated 06/07/2025 Impression: No acute pulmonary pathology. Stable left chest wall intracardiac device. Cardiomegaly. Electronically signed by Misael Cantrell 06-08-2025 8:10 PM
[2025-06-08 20:31] LABS: Anion Gap 9.0 (3-11); Blood Urea Nitrogen 26.0 mg/dl (6-23); Calcium 9.7 mg/dl (8.6-10.3); Carbon Dioxide 29.0 mmol/L (21-32); Chloride 96.0 mmol/L (98-107); Creatinine Clr Calc Pharmacy 27.9 ml/min; Glucose 83.0 mg/dl (70-99(Fasting)); Potassium 4.0 mmol/L (3.5-5.1); Sodium 134.0 mmol/L (136-145)
[2025-06-08] MEDS: ALBUMIN 25% 25 GM/100 ML VIAL IV ONE (20:41)
[2025-06-08 20:49] LABS: Partial Thromboplastin Time 32 Seconds (21-31)
--- NOTE | 2025-06-09 04:49 | Communication Note ---
Date of Service: June 08, 2025 Late entry 06/08, 7:20 PM Patient had transient substernal heaviness with SOB as per RN. SBP 80s Chest x-ray as per my interpretation, cardiomegaly, no congestion EKG as per my interpretation Rate 60, paced rhythm Lactic acid 2.5 Serum creatinine 1.67 from 1.2 in a.m. Troponin x 2 within normal limits AP Hypotension ARF Monitor creatinine and lactic acid response to IVF Hold diuretic and spironolactone for now
[2025-06-09 07:08] LABS: Anion Gap 7.0 (3-11); Blood Urea Nitrogen 30.0 mg/dl (6-23); Calcium 9.7 mg/dl (8.6-10.3); Carbon Dioxide 32.0 mmol/L (21-32); Chloride 98.0 mmol/L (98-107); Creatinine Clr Calc Pharmacy 27.2 ml/min; Glucose 71.0 mg/dl (70-99(Fasting)); Magnesium 2.2 mg/dl (1.7-2.4); Potassium 4.4 mmol/L (3.5-5.1); Sodium 137.0 mmol/L (136-145)
--- NOTE | 2025-06-09 10:11 | Orthopedic Progress Note ---
Date of Service June 09, 2025 Assessment & Plan (1) Closed fracture of right hip with routine healing: Plan: The patient will benefit from physical therapy. This has already been ordered by the hospitalist service. She may be weightbearing as tolerated on the right leg. She would benefit from the use of a walker. She was reassured that this does not require surgery at this time. Continue with her Eliquis as previously prescribed. Minimize narcotic use as this may contribute to her falls. Follow-up with PA in our office 4 weeks from now. Patient says she needs a Friday afternoon after 2 PM secondary to transportation issues. Orthopedics will sign off. Admission and Anticipated Discharge Date Admission Date: June 07, 2025 Subjective Patient seen and examined on a.m. rounds. She reports that she has not yet worked with physical therapy. She would like to do PT. She reports her pain is unchanged from yesterday. No numbness or tingling down her leg. Physical Exam Physical Exam: Resting comfortably in bed no acute distress. She admits mild tenderness to palpation over the lateral aspect of the greater trochanter. Distally neurovascularly intact. Results & Data Vital Signs (Past 12 Hours) Vital Signs Temp Pulse Pulse Resp BP Pulse Ox O2 Del Method 06/09/25 07:29 36.7 C 67 18 103/69 96 Room Air 06/09/25 03:52 36.3 C L 58 L 18 96/60 L 93 Room Air 06/08/25 22:51 36.4 C L 64 18 97/66 L 94 Room Air 06/08/25 22:51 60
[2025-06-09] MEDS: LEVALBUTEROL HCL 0.63 MG/3 ML NEB NEB PRN (11:33)
--- NOTE | 2025-06-09 12:28 | Electrocardiogram Report ---
Test Reason : Blood Pressure : */* mmHG Vent. Rate : 61 BPM Atrial Rate : 57 BPM P-R Int : * ms QRS Dur : 130 ms QT Int : 508 ms P-R-T Axes : * 206 100 degrees QTcB Int : 511 ms Ventricular-paced rhythm Biventricular pacemaker detected Abnormal ECG When compared with ECG of 07-Jun-2025 17:26, No significant change was found Confirmed by Javad Lamb ([id number]) on 06/09/2025 12:28:41 PM Referred By: REFERRED SELF Confirmed By: Javad Lamb
--- NOTE | 2025-06-09 16:42 | Cardiology Progress Note ---
Date of Service June 09, 2025 Assessment & Plan (1) Acute on chronic heart failure with reduced ejection fraction (HFrEF, <= 40%): (2) Cardiac defibrillator in situ: (3) Chronic atrial fibrillation: (4) Pneumonia: Plan Patient is a complex 69 year old female admitted with multifactorial SOB, volume overload consistent with acute decompensated HFrEF HFrEF -continue IV lasix - dose reduced to 20 mg IV BID due to hypotension -Monitor I+O's -Daily weight with standing scale if able. -Replace electrolytes -Monitor renal function -Continue spironolactone 12.5 mg daily -would likely benefit from increasing furosemide dose as outpatient (40 mg home dose) OR transition to torsemide Chronic afib - rates controlled -underlying BIV AICD -continue metoprolol and Eliquis Chronic hypotension -GDMT for CHF limited due to hypotension -continue midodrine. titrate dose if needed -no symptoms Possible pneumonia with right basilar opacity - ongoing cough and wheeze also noted -continue antibiotic? Atypical chest pain this morning - now resolved. Likely GI based on description. Case discussed with Dr Johnson I spent a total of 30 minutes on the date of service in preparation, delivery, and documentation of the care provided to this patient, excluding any time spent in the performance of separately billed services. Morenita Couch PA-C Department of Cardiology, [facility] This chart was completed in part utilizing Speech Voice Recognition Software. Grammatical errors, random word insertions, pronoun errors, and incomplete sentences are an occasional consequence of this system due to software limitations, ambient noise, and hardware issues. Any formal questions or concerns about the content, text, or information contained within the body of this dictation should be directly addressed to the provider for clarification. Admission and Anticipated Discharge Date Admission Date: June 07, 2025 Supervising Physician Co-Signing Physician Notes I have personally performed a history and physical examination on the patient. I have reviewed the advance practitioner's documentation, and I agree with, and take responsibility for the plan of care. 69-year-old female with acute HFrEF. Admission precipitated by dietary indiscretion/excessive fluid intake. Continue IV diuresis with furosemide 20 mg twice daily. Monitor fluid balance, daily, GFR, electrolytes. Replace potassium and magnesium as indicated. Continue low-dose of spironolactone. Titration of GDMT limited by chronic hypotension. Management of possible pneumonia as per internal medicine. I spent a total of 30 minutes on the date of service in preparation, delivery, and documentation of the care provided to this patient, excluding any time spent in the performance of separately billed services. Jonathan Johnson DO, [facility] Subjective Patient resting in bed. Feels her SOB has increased today. also had mild epigastric/substernal chest pain this morning now resolved. Diuretics were held last evening due to hypotension. Spoke with hospitalist and lower dose resumed. Review of Systems Review of Systems: All systems reviewed & are unremarkable except as noted in HPI & below Physical Exam Constitutional: WD/WN, vitals as above + thin; no acute distress Neck: normal visual inspection Respiratory: + cough; no respiratory distress and no labored breathing Auscultation: + diminished lung sounds and + wheezes Cardiovascular: Rate/Rhythm: regular rate and regular rhythm Heart Sounds: + murmur (I/ systolic murmur) Vessels: + JVD Extremities: + edema Gastrointestinal (Abdomen): normal bowel sounds, soft, nontender, no hepatosplenomegaly Musculoskeletal: no cyanosis or clubbing, extremities motor strength 5/5 Neurologic: PERRL, EOMI, accommodation nl, no face palsy, no dysarthria Results & Data Vital Signs (Past 12 Hours) Vital Signs Temp Pulse Resp BP Pulse Ox O2 Del Method 06/09/25 15:29 36.4 C L 63 18 95/64 L 95 Room Air 06/09/25 11:46 36.5 C 63 18 101/68 99 Room Air 06/09/25 11:33 68 18 98 Room Air 06/09/25 07:29 36.7 C 67 18 103/69 96 Room Air Laboratory Results Cardiac Enzymes 06/08/25 06/08/25 Range/Units 19:32 22:55 Troponin I High Sens 13.1 12.2 (0-14) pg/ml Coagulation 06/08/25 Range/Units 19:32 APTT 32 H (21-31) Seconds Comprehensive Metabolic Panel 06/08/25 06/09/25 Range/Units 19:32 06:18 Sodium 134 L 137 (136-145) mmol/L Potassium 4.0 4.4 (3.5-5.1) mmol/L Chloride 96 L 98 (98-107) mmol/L Carbon Dioxide 29 32 (21-32) mmol/L BUN 26 H 30 H (6-23) mg/dl Creatinine 1.62 H D 1.66 H (0.6-1.2) mg/dl Glucose 83 71 (70-99(Fasting)) mg/dl Calcium 9.7 9.7 (8.6-10.3) mg/dl Intake and Output 06/09/25 06/09/25 06/09/25 06:59 14:59 22:59 Intake Total 50 / 710 750 / 750 Output Total Balance 50 / -410 749 / 749 Intake: Oral 50 / 610 750 / 750 Output: # Bowel Movements Other: # Unmeasured Voids 1 3 Weight 62 kg Weight Measurement Method Built in [facility] Diagnostic Findings Telemetry reviewed : paced in the 60's; occ PVC Medications Administered Current Inpatient Medications Acetaminophen (Acetaminophen 325 Mg Tab) 650 mg PO Q4H PRN PRN Reason: Pain or Fever Stop: 07/07/25 21:36 Albuterol (Albuterol Hfa 8 Gm Inhaler) 2 puffs INH Q6H PRN PRN Reason: shortness of breath or wheezing Stop: 07/07/25 21:36 Apixaban (Apixaban 5 Mg Tablet) 5 mg PO BID [facility] Stop: 07/07/25 21:36 Last Admin: 06/09/25 08:05 Dose: 5 mg Empagliflozin (Empagliflozin 10 Mg Tab) 10 mg PO QAM [facility] Stop: 07/08/25 08:59 Last Admin: 06/09/25 08:05 Dose: 10 mg Escitalopram Oxalate (Escitalopram Oxalate 10 Mg Tab) 5 mg PO QAM JESSIKA Stop: 07/08/25 08:59 Last Admin: 06/09/25 08:03 Dose: 5 mg Furosemide (Furosemide 40 Mg/4 Ml Vial) 20 mg IV BID JESSIKA Stop: 07/09/25 11:14 Hydroxyzine HCl (Hydroxyzine Hcl 10 Mg Tab) 10 mg PO QID PRN PRN Reason: Anxiety Stop: 07/08/25 19:22 Last Admin: 06/09/25 12:11 Dose: 10 mg Levalbuterol HCl (Levalbuterol Hcl 0.63 Mg/3 Ml Neb) 0.63 mg NEB Q6H PRN; Protocol PRN Reason: Shortness Of Breath Or Wheezing Stop: 07/09/25 11:07 Last Admin: 06/09/25 11:33 Dose: 0.63 mg Levothyroxine Sodium (Levothyroxine Sodium 75 Mcg Tablet) 75 mcg PO DAILYBB [facility] Stop: 07/08/25 06:29 Last Admin: 06/09/25 05:11 Dose: 75 mcg Loratadine (Loratadine 10 Mg Tab) 10 mg PO QAM [facility] Stop: 07/08/25 12:14 Last Admin: 06/09/25 08:00 Dose: 10 mg Magnesium Oxide (Magnesium Oxide 400 Mg Tab) 400 mg PO QAM [facility] Stop: 07/08/25 08:59 Last Admin: 06/09/25 08:02 Dose: 400 mg Metoprolol Succinate (Metoprolol Succ 25mg Ext Rel Tab) 25 mg PO BID [facility] Stop: 07/07/25 21:36 Last Admin: 06/09/25 08:04 Dose: 25 mg Midodrine (Midodrine Hcl 2.5 Mg Tab) 5 mg PO TID@0800,1200,1700 [facility] Stop: 07/08/25 07:59 Last Admin: 06/09/25 16:28 Dose: 5 mg Nitroglycerin (Nitroglycerin Sl 0.4 Mg/Tab Tab) 0.4 mg SL Q5M PRN PRN Reason: Chest Pain Stop: 07/07/25 21:36 Nystatin (Nystatin Powder 15gm Btl) 1 appln EXT BID [facility] Stop: 07/08/25 08:59 Last Admin: 06/09/25 08:05 Dose: 1 appln Oxycodone HCl (Oxycodone Hcl Ir 5 Mg Tab (Immediate Release)) 10 mg PO QID PRN PRN Reason: Pain Stop: 06/21/25 21:36 Last Admin: 06/09/25 08:11 Dose: 10 mg Polyethylene Glycol (Polyethylene (Miralax) 17 Gm Pack) 17 gm PO DAILY PRN PRN Reason: Constipation Stop: 07/07/25 21:36 Potassium Chloride (Potassium Chloride Crtab 20 Meq Tabcr) 20 [facility] Stop: 07/08/25 08:59 Last Admin: 06/09/25 08:12 Dose: 20 meq Rosuvastatin Calcium (Rosuvastatin Calcium 20 Mg Tab) 20 mg PO QAM [facility] Stop: 07/08/25 08:59 Last Admin: 06/09/25 08:02 Dose: 20 mg Senna/Docusate Sodium (Docusate Sodium/Senna 50/8.6mg Tab) 1 tab PO QAM JESSIKA Stop: 07/08/25 08:59 Last Admin: 06/09/25 08:12 Dose: 1 tab Spironolactone (Spironolactone 12.5 Mg Tab) 12.5 mg PO QAM JESSIKA Stop: 07/08/25 08:59 Last Admin: 06/08/25 09:08 Dose: 12.5 mg Trazodone HCl (Trazodone Hcl 50 Mg Tab) 50 mg PO HS JESSIKA Stop: 07/07/25 21:36 Last Admin: 06/08/25 19:58 Dose: 50 mg Vitamin D (Cholecalciferol 25 Mcg (1000 Units) Tab) 50 mcg PO QAM JESSIKA Stop: 07/08/25 08:59 Last Admin: 06/09/25 08:03 Dose: 50 mcg PG Care Time/CCT Total # of Minutes Spent Total Time Spent with Patient: Total time spent is greater than 50% in coordination of care (as documented) at patient's floor/unit and/or counseling patient: 30 minutes Coding Level of Care Code 83678 SUB INP/OBS CARE 3/50MIN Diagnoses Acute on chronic heart failure with reduced ejection fraction (HFrEF, <= 40%) I50.23 Cardiac defibrillator in situ Z95.810 Chronic atrial fibrillation I48.20 Pneumonia J18.9 Laterality: left Lung location: unspecified part of lung Pneumonia type: due to unspecified organism (4) Pneumonia Laterality: left Lung location: unspecified part of lung Pneumonia type: due to unspecified organism Qualified Code(s): J18.9 - Pneumonia, unspecified organism
--- NOTE | 2025-06-09 17:06 | Hospitalist Progress Note ---
Date of Service June 09, 2025 Assessment & Plan (1) Acute on chronic systolic (congestive) heart failure: Plan: 69-year-old female with past medical history significant for dyslipidemia, hypothyroidism, secondary renal hyperparathyroidism, chronic systolic CHF, drug- induced cardiomyopathy, nonischemic cardiomyopathy, hypertension, status post biventricular ICD placement, CKD stage III, peripheral artery disease, permanent atrial fibrillation, chronic idiopathic constipation, traumatic cataract, osteoporosis, charcoaled Penny tooth disease, history of breast cancer, general anxiety disorder, blindness of left eye, lives at home with her and ildren comes because of shortness of breath. Patient states since 1 week getting progressively short of breath. Having some cough. Also had fever. Also has lower extremity edema. Denies any chest pain. No headache. No runny nose or sore throat. No nausea. No abdominal pain. Normal bowel and bladder movements. Hemodynamics are okay.Complains of some soreness in the right inguinal region and has some rash there. Acute on chronic systolic CHF Drug-induced cardiomyopathy S/P Biventricular ICD --Chest CT:Small to moderate right pleural effusion, increased since the prior. Associated right lower lobe atelectasis. --BNP: 1304 --Recent ECHO: Left ventricular ejection fraction 20 to 25%. Diffuse hypokinesis. No thrombus. Mild mitral regurgitation. Right ventricle systolic function is mildly reduced. Moderate tricuspid regurgitation. Mild pulmonary hypertension. -- Continue IV Lasix reduced to 20 mg twice a day due to hypotension --Continue Jardiance, metoprolol succinate, Aldactone Monitor I's and O's, daily weight Appreciate cardiology input Continue midodrine to help with hypotension Cardiology following May need to increase midodrine to 10 mg 3 times daily if hypotension persists Permanent atrial fibrillation Continue metoprolol succinate 25 mg twice a day On Eliquis for anticoagulation Rate controlled, monitor Peripheral artery disease On Eliquis and statin CKD stage III Baseline creatinine ~ 1.4-1.5 Monitor renal function Avoid nephrotoxic agents as able General Anxiety disorder Continue escitalopram Hypothyroidism Continue levothyroxine Chronic idiopathic constipation Continue bowel regimen Subacute right greater trochanteric fracture Recurrent falls -Right femur fracture on femur CT on 04/10/2025 shows acute nondisplaced minimally commuted fracture of the right greater trochanter femur with possible intertrochanteric extension of the fracture. MRI was not done because of ICD. Conservative management recommended. Non weightbearing right lower extremity for 6 weeks recommended. Advised to walk with walker - Hip CT: Healing subacute right greater trochanteric fracture demonstrates unchanged alignment.. Moderate to severe osteoarthritis of the right hip. --Hip/Pelvic X ray: Right acetabular protrusio deformity. Healing nondisplaced right superior greater trochanteric fracture. Pain control Using walker for ambulation PT OT, fall precaution Appreciate orthopedics input: Weightbearing as tolerated right lower extremity, walker with activity Needs follow-up with orthopedics in 4 weeks as outpatient Right inguinal region and groin rash nystatin powder DVT Px: Eliquis CODE STATUS Full code Disposition PT OT prior to discharge Admission and Anticipated Discharge Date Admission Date: June 07, 2025 Subjective Patient is seen and examined at bedside Was hypotensive overnight requiring IV fluids Reports having transient shortness of breath associated with some chest pain this morning Denies any significant hip pain today No other complaints today Review of Systems Review of Systems: All systems reviewed & are unremarkable except as noted in Subjective Physical Exam Physical Exam: Physical Exam: Vitals signs as noted above General Appearance:Thin, frail, no apparent distress Head: normocephalic, Atraumatic Eyes: normal inspection, EOMI Neck: supple, Trachea midline Respiratory/Chest: Decreased breath sounds,scattered wheezing, Crackles, No accessory muscle use Cardiovascular: S1, S2, No murmur Abdomen/GI:Soft, Non tender, Bowel sounds present Extremities/Musculoskeletal:normal inspection, 2+ LE edema Neurologic/Psych:AAOX3, grossly no focal neurological deficits Skin: normal color, warm Results & Data Results & Data Vital Signs (Past 12 Hours) Vital Signs Temp Pulse Resp BP Pulse Ox O2 Del Method 06/09/25 15:29 36.4 C L 63 18 95/64 L 95 Room Air 06/09/25 11:46 36.5 C 63 18 101/68 99 Room Air 06/09/25 11:33 68 18 98 Room Air 06/09/25 07:29 36.7 C 67 18 103/69 96 Room Air Laboratory Results [facility] 06/08/25 06/09/25 19:32 06:18 Sodium 134 L 137 Potassium 4.0 4.4 Chloride 96 L 98 Carbon Dioxide 29 32 BUN 26 H 30 H Creatinine 1.62 H D 1.66 H Glucose 83 71 Calcium 9.7 9.7
[2025-06-10 06:08] LABS: Hematocrit (blood only) 35.3 % (37.0-47.0); Hemoglobin 11.6 g/dl (12.0-16.0); Mean Corpuscular Hemoglobin 26.9 pg (25.0-34.0); Mean Corpuscular Volume 81.7 fL (80.0-100.0); Platelet Count 152 K/uL (130-400); RDW Standard Deviation 59.4 fL (36.4-46.3); Red Blood Count 4.32 M/uL (4.20-5.40); White Blood Count 5.71 K/ul (4.8-10.8)
[2025-06-10 06:40] LABS: Anion Gap 6.0 (3-11); Blood Urea Nitrogen 30.0 mg/dl (6-23); Calcium 10.0 mg/dl (8.6-10.3); Carbon Dioxide 28.0 mmol/L (21-32); Chloride 100.0 mmol/L (98-107); Creatinine Clr Calc Pharmacy 33.0 ml/min; Glucose 80.0 mg/dl (70-99(Fasting)); Potassium 4.9 mmol/L (3.5-5.1); Sodium 134.0 mmol/L (136-145)
[2025-06-10] MEDS: FUROSEMIDE 40 MG/4 ML VIAL IV SCH (09:08)
[2025-06-10] MEDS: MAGNESIUM HYDROXIDE SUSP 30 ML UDC PO PRN (10:10)
--- NOTE | 2025-06-10 12:31 | Cardiology Progress Note ---
Date of Service June 10, 2025 Assessment & Plan (1) Acute on chronic heart failure with reduced ejection fraction (HFrEF, <= 40%): (2) Cardiac defibrillator in situ: (3) Chronic atrial fibrillation: (4) Pneumonia: Plan Patient is a complex 69 year old female admitted with multifactorial SOB, volume overload consistent with acute decompensated HFrEF HFrEF -continue IV lasix - dose reduced to 20 mg IV BID due to hypotension - resume this morning. -Monitor I+O's -Daily weight with standing scale if able - weight trending down since admission about 3 Kg. -Replace electrolytes -Monitor renal function -Continue spironolactone 12.5 mg daily -would likely benefit from increasing furosemide dose as outpatient (40 mg home dose) OR transition to torsemide Chronic afib - rates controlled -underlying BIV AICD -continue metoprolol and Eliquis Chronic hypotension -GDMT for CHF limited due to hypotension -continue midodrine. -no symptoms -acceptable to have BP in the 90's Possible pneumonia with right basilar opacity - ongoing cough and wheeze also n oted -continue antibiotics, nebs, steroids Atypical chest pain now resolved. Likely GI based on description. Anticipate transitioning to oral diuretics in the next 1-2 days. No further cardiac testing required at this time. Will sign off. Please contact front clerk cardiology provider with additional questions or concerns. Case discussed with Dr Johnson I spent a total of 30 minutes on the date of service in preparation, delivery, and documentation of the care provided to this patient, excluding any time spent in the performance of separately billed services. Morenita Couch PA-C Department of Cardiology, [facility] This chart was completed in part utilizing Speech Voice Recognition Software. Grammatical errors, random word insertions, pronoun errors, and incomplete sentences are an occasional consequence of this system due to software limitations, ambient noise, and hardware issues. Any formal questions or concerns about the content, text, or information contained within the body of this dictation should be directly addressed to the provider for clarification. Admission and Anticipated Discharge Date Admission Date: June 07, 2025 Supervising Physician Co-Signing Physician Notes I have personally performed a history and physical examination on the patient. I have reviewed the advance practitioner's documentation, and I agree with, and take responsibility for the plan of care. 69-year-old female with acute HFrEF. Admission precipitated by dietary indiscretion/excessive fluid intake. Complains of abdominal discomfort and constipation since admission. Milk of Magnesia ordered by primary service. Resume IV diuresis with furosemide 20 mg twice daily. Monitor fluid balance, daily, GFR, electrolytes. Borderline hyperkalemia noted per a.m. labs. Hold potassium supplementation tomorrow 06/11/2025. Cautiously continue spironolactone at this time. Titration of GDMT limited by chronic hypotension. I spent a total of 30 minutes on the date of service in preparation, delivery, and documentation of the care provided to this patient, excluding any time spent in the performance of separately billed services. Jonathan Johnson DO, [facility] Subjective Patient resting in chair. Feeling "awful" this morning. Requesting milk of magnesia for GI upset. she notes chest heaviness, but this improved with neb treatment. Edema persists. Review of Systems Review of Systems: All systems reviewed & are unremarkable except as noted in HPI & below Physical Exam Constitutional: WD/WN, vitals as above + thin; no acute distress Neck: normal visual inspection Respiratory: no respiratory distress and no labored breathing Auscultation: + diminished lung sounds and + wheezes Cardiovascular: Rate/Rhythm: regular rate and regular rhythm Heart Sounds: + murmur (I/ systolic murmur) Vessels: + JVD Extremities: + edema Gastrointestinal (Abdomen): normal bowel sounds, soft, nontender, no hepatosplenomegaly Musculoskeletal: no cyanosis or clubbing, extremities motor strength 5/5 Neurologic: PERRL, EOMI, accommodation nl, no face palsy, no dysarthria Results & Data Vital Signs (Past 12 Hours) Vital Signs Temp Pulse Resp BP Pulse Ox O2 Del Method 06/10/25 10:51 36.4 C L 63 18 94/62 L 94 Room Air 06/10/25 08:45 97 Room Air 06/10/25 08:00 Room Air 06/10/25 07:23 36.6 C 60 18 104/69 97 Room Air 06/10/25 04:16 36.8 C 60 18 93/60 L 96 Room Air Laboratory Results CBC 06/10/25 Range/Units 05:45 WBC 5.71 (4.8-10.8) K/ul RBC 4.32 (4.20-5.40) M/uL Hgb 11.6 L (12.0-16.0) g/dl Hct 35.3 L (37.0-47.0) % Plt Count 152 (130-400) K/uL Comprehensive Metabolic Panel 06/10/25 Range/Units 05:45 Sodium 134 L (136-145) mmol/L Potassium 4.9 (3.5-5.1) mmol/L Chloride 100 (98-107) mmol/L Carbon Dioxide 28 (21-32) mmol/L BUN 30 H (6-23) mg/dl Creatinine 1.48 H (0.6-1.2) mg/dl Glucose 80 (70-99(Fasting)) mg/dl Calcium 10.0 (8.6-10.3) mg/dl Intake and Output 06/09/25 06/10/25 06/10/25 22:59 06:59 14:59 Other: # Unmeasured Voids 1 Weight 63.1 kg Weight Measurement Method Built in [facility] Diagnostic Findings Telemetry reviewed: Paced ventricular rhythm. no arrhythmias Medications Administered Current Inpatient Medications Acetaminophen (Acetaminophen 325 Mg Tab) 650 mg PO Q4H PRN PRN Reason: Pain or Fever Stop: 07/07/25 21:36 Albuterol (Albuterol Hfa 8 Gm Inhaler) 2 puffs INH Q6H PRN PRN Reason: shortness of breath or wheezing Stop: 07/07/25 21:36 Apixaban (Apixaban 5 Mg Tablet) 5 mg PO BID JESSIKA Stop: 07/07/25 21:36 Last Admin: 06/10/25 08:32 Dose: 5 mg Empagliflozin (Empagliflozin 10 Mg Tab) 10 mg PO QAM JESSIKA Stop: 07/08/25 08:59 Last Admin: 06/10/25 08:33 Dose: 10 mg Escitalopram Oxalate (Escitalopram Oxalate 10 Mg Tab) 5 mg PO QAM JESSIKA Stop: 07/08/25 08:59 Last Admin: 06/10/25 08:33 Dose: 5 mg Furosemide (Furosemide 40 Mg/4 Ml Vial) 20 mg IV BID [facility] Stop: 07/09/25 11:14 Last Admin: 06/10/25 09:08 Dose: 20 mg Hydroxyzine HCl (Hydroxyzine Hcl 10 Mg Tab) 10 mg PO QID PRN PRN Reason: Anxiety Stop: 07/08/25 19:22 Last Admin: 06/09/25 12:11 Dose: 10 mg Levalbuterol HCl (Levalbuterol Hcl 0.63 Mg/3 Ml Neb) 0.63 mg NEB Q6H PRN; Protocol PRN Reason: Shortness Of Breath Or Wheezing Stop: 07/09/25 11:07 Last Admin: 06/10/25 08:45 Dose: 0.63 mg Levothyroxine Sodium (Levothyroxine Sodium 75 Mcg Tablet) 75 mcg PO DAILYBB [facility] Stop: 07/08/25 06:29 Last Admin: 06/10/25 05:48 Dose: 75 mcg Loratadine (Loratadine 10 Mg Tab) 10 mg PO QAM [facility] Stop: 07/08/25 12:14 Last Admin: 06/10/25 08:33 Dose: 10 mg Magnesium Hydroxide (Magnesium Hydroxide Susp 30 Ml Udc) 30 ml PO Q6H PRN PRN Reason: Constipation Stop: 07/10/25 09:47 Last Admin: 06/10/25 10:10 Dose: 30 ml Magnesium Oxide (Magnesium Oxide 400 Mg Tab) 400 mg PO QAM [facility] Stop: 07/08/25 08:59 Last Admin: 06/10/25 08:34 Dose: 400 mg Metoprolol Succinate (Metoprolol Succ 25mg Ext Rel Tab) 25 mg PO BID [facility] Stop: 07/07/25 21:36 Last Admin: 06/10/25 08:34 Dose: 25 mg Midodrine (Midodrine Hcl 2.5 Mg Tab) 5 mg PO TID@0800,1200,1700 [facility] Stop: 07/08/25 07:59 Last Admin: 06/10/25 11:10 Dose: 5 mg Nitroglycerin (Nitroglycerin Sl 0.4 Mg/Tab Tab) 0.4 mg SL Q5M PRN PRN Reason: Chest Pain Stop: 07/07/25 21:36 Nystatin (Nystatin Powder 15gm Btl) 1 appln EXT BID [facility] Stop: 07/08/25 08:59 Last Admin: 06/10/25 08:34 Dose: 1 appln Oxycodone HCl (Oxycodone Hcl Ir 5 Mg Tab (Immediate Release)) 10 mg PO QID PRN PRN Reason: Pain Stop: 06/21/25 21:36 Last Admin: 06/10/25 08:41 Dose: 10 mg Polyethylene Glycol (Polyethylene (Miralax) 17 Gm Pack) 17 gm PO DAILY PRN PRN Reason: Constipation Stop: 07/07/25 21:36 Potassium Chloride (Potassium Chloride Crtab 20 Meq Tabcr) [facility] Stop: 07/08/25 08:59 Last Admin: 06/10/25 08:35 Dose: 20 meq Rosuvastatin Calcium (Rosuvastatin Calcium 20 Mg Tab) 20 [facility] Stop: 07/08/25 08:59 Last Admin: 06/10/25 08:35 Dose: 20 mg Senna/Docusate Sodium (Docusate Sodium/Senna 50/8.6mg Tab) 1 tab [facility] Stop: 07/08/25 08:59 Last Admin: 06/10/25 08:33 Dose: 1 tab Spironolactone (Spironolactone 12.5 Mg Tab) 12.5 mg [facility] Stop: 07/08/25 08:59 Last Admin: 06/08/25 09:08 Dose: 12.5 mg Trazodone HCl (Trazodone Hcl 50 Mg Tab) 50 mg PO [facility] Stop: 07/07/25 21:36 Last Admin: 06/09/25 20:28 Dose: 50 mg Vitamin D (Cholecalciferol 25 Mcg (1000 Units) Tab) 50 mcg PO QAM [facility] Stop: 07/08/25 08:59 Last Admin: 06/10/25 08:32 Dose: 50 mcg PG Care Time/CCT Total # of Minutes Spent Total Time Spent with Patient: Total time spent is greater than 50% in coordination of care (as documented) at patient's floor/unit and/or counseling patient: 35 minutes Coding Level of Care Code 11128 SUB INP/OBS CARE 3/50MIN Diagnoses Acute on chronic heart failure with reduced ejection fraction (HFrEF, <= 40%) I50.23 Cardiac defibrillator in situ Z95.810 Chronic atrial fibrillation I48.20 Pneumonia J18.9 Laterality: left Lung location: unspecified part of lung Pneumonia type: due to unspecified organism (4) Pneumonia Laterality: left Lung location: unspecified part of lung Pneumonia type: due to unspecified organism Qualified Code(s): J18.9 - Pneumonia, unspecified organism
--- NOTE | 2025-06-10 15:15 | Hospitalist Progress Note ---
Date of Service June 10, 2025 Assessment & Plan (1) Acute on chronic systolic (congestive) heart failure: Plan: 69-year-old female with past medical history significant for dyslipidemia, hypothyroidism, secondary renal hyperparathyroidism, chronic systolic CHF, drug- induced cardiomyopathy, nonischemic cardiomyopathy, hypertension, status post biventricular ICD placement, CKD stage III, peripheral artery disease, permanent atrial fibrillation, chronic idiopathic constipation, traumatic cataract, osteoporosis, charcoaled Penny tooth disease, history of breast cancer, general anxiety disorder, blindness of left eye, lives at home with her and ildren comes because of shortness of breath. Patient states since 1 week getting progressively short of breath. Having some cough. Also had fever. Also has lower extremity edema. Denies any chest pain. No headache. No runny nose or sore throat. No nausea. No abdominal pain. Normal bowel and bladder movements. Hemodynamics are okay.Complains of some soreness in the right inguinal region and has some rash there. Acute on chronic systolic CHF Drug-induced cardiomyopathy S/P Biventricular ICD --Chest CT:Small to moderate right pleural effusion, increased since the prior. Associated right lower lobe atelectasis. --BNP: 1304 --Recent ECHO: Left ventricular ejection fraction 20 to 25%. Diffuse hypokinesis. No thrombus. Mild mitral regurgitation. Right ventricle systolic function is mildly reduced. Moderate tricuspid regurgitation. Mild pulmonary hypertension. -- Continue IV Lasix reduced to 20 mg twice a day due to hypotension --Continue Jardiance, metoprolol succinate Monitor I's and O's, daily weight Appreciate cardiology input Continue midodrine to help with hypotension Cardiology following May need to increase midodrine to 10 mg 3 times daily if hypotension persists Continue IV diuresis Hold Aldactone due to rising potassium levels Plan to transition to oral diuretics in 1 to 2 days Permanent atrial fibrillation Continue metoprolol succinate 25 mg twice a day On Eliquis for anticoagulation Rate controlled, monitor Peripheral artery disease On Eliquis and statin CKD stage III Baseline creatinine ~ 1.4-1.5 Monitor renal function Avoid nephrotoxic agents as able Renal function stable Constipation Continue bowel regimen Encouraged to ambulate General Anxiety disorder Continue escitalopram Hypothyroidism Continue levothyroxine Chronic idiopathic constipation Continue bowel regimen Subacute right greater trochanteric fracture Recurrent falls -Right femur fracture on femur CT on 04/10/2025 shows acute nondisplaced minimally commuted fracture of the right greater trochanter femur with possible intertrochanteric extension of the fracture. MRI was not done because of ICD. Conservative management recommended. Non weightbearing right lower extremity for 6 weeks recommended. Advised to walk with walker - Hip CT: Healing subacute right greater trochanteric fracture demonstrates unchanged alignment.. Moderate to severe osteoarthritis of the right hip. --Hip/Pelvic X ray: Right acetabular protrusio deformity. Healing nondisplaced right superior greater trochanteric fracture. Pain control Using walker for ambulation PT OT, fall precaution Appreciate orthopedics input: Weightbearing as tolerated right lower extremity, walker with activity Needs follow-up with orthopedics in 4 weeks as outpatient Right inguinal region and groin rash nystatin powder DVT Px: Eliquis CODE STATUS Full code Disposition PT recommends SNF placement Patient prefers to return home with home health Admission and Anticipated Discharge Date Admission Date: June 07, 2025 Subjective Patient is seen and examined at bedside Reports having constipation Dyspnea, chest pain improved with breathing treatments Still has leg edema No other complaints today Review of Systems Review of Systems: All systems reviewed & are unremarkable except as noted in Subjective Physical Exam Physical Exam: Physical Exam: Vitals signs as noted above General Appearance:Thin, frail, no apparent distress Head: normocephalic, Atraumatic Eyes: normal inspection, EOMI Neck: supple, Trachea midline Respiratory/Chest: Decreased breath sounds,scattered wheezing, Crackles, No accessory muscle use Cardiovascular: S1, S2, No murmur Abdomen/GI:Soft, Non tender, Bowel sounds present Extremities/Musculoskeletal:normal inspection, 2+ LE edema Neurologic/Psych:AAOX3, grossly no focal neurological deficits Skin: normal color, warm Results & Data Results & Data Vital Signs (Past 12 Hours) Vital Signs Temp Pulse Resp BP Pulse Ox O2 Del Method 06/10/25 10:51 36.4 C L 63 18 94/62 L 94 Room Air 06/10/25 08:45 97 Room Air 06/10/25 08:00 Room Air 06/10/25 07:23 36.6 C 60 18 104/69 97 Room Air 06/10/25 04:16 36.8 C 60 18 93/60 L 96 Room Air Laboratory Results Short CBC 06/10/25 Range/Units 05:45 WBC 5.71 (4.8-10.8) K/ul Hgb 11.6 L (12.0-16.0) g/dl Hct 35.3 L (37.0-47.0) % Plt Count 152 (130-400) K/uL BMP 06/10/25 05:45 Sodium 134 L Potassium 4.9 Chloride 100 Carbon Dioxide 28 BUN 30 H Creatinine 1.48 H Glucose 80 Calcium 10.0
[2025-06-10] MEDS: COUGH DROP (SUGAR FREE) LOZ 24 LOZ/1 BOX BUCCAL PRN (16:56)
--- NOTE | 2025-06-10 20:20 | Communication Note ---
Date of Service: June 10, 2025 Made aware by RN of SBP 90s prior to Lasix administration. Lactic acid 2.2 Serum crea 1.54 from 1.48 in AM. AP Hypotension Increase maintenance midodrine dose given hypoperfusion Monitor lactic acid response to IV albumin Hold Lasix for now
[2025-06-10 20:25] LABS: Anion Gap 7.0 (3-11); Blood Urea Nitrogen 30.0 mg/dl (6-23); Calcium 9.9 mg/dl (8.6-10.3); Carbon Dioxide 30.0 mmol/L (21-32); Chloride 98.0 mmol/L (98-107); Creatinine Clr Calc Pharmacy 31.7 ml/min; Glucose 89.0 mg/dl (70-99(Fasting)); Potassium 4.4 mmol/L (3.5-5.1); Sodium 135.0 mmol/L (136-145)
[2025-06-10] MEDS: MIDODRINE HCL 2.5 MG TAB PO STA (20:42)
[2025-06-10] MEDS: ALBUMIN 25% 12.5 GM/50 ML VIAL IV ONE (21:18)
[2025-06-11 06:18] LABS: Anion Gap 5.0 (3-11); Blood Urea Nitrogen 30.0 mg/dl (6-23); Calcium 9.9 mg/dl (8.6-10.3); Carbon Dioxide 30.0 mmol/L (21-32); Chloride 101.0 mmol/L (98-107); Creatinine Clr Calc Pharmacy 28.4 ml/min; Glucose 79.0 mg/dl (70-99(Fasting)); Magnesium 2.5 mg/dl (1.7-2.4); Potassium 4.5 mmol/L (3.5-5.1); Sodium 136.0 mmol/L (136-145)
[2025-06-11] MEDS: MIDODRINE HCL 2.5 MG TAB PO SCH (08:14)
[2025-06-11] MEDS: TORSEMIDE 20 MG TAB PO SCH (15:47)
--- NOTE | 2025-06-11 16:21 | Cardiology Progress Note ---
Date of Service June 11, 2025 Assessment & Plan (1) Acute on chronic heart failure with reduced ejection fraction (HFrEF, <= 40%): (2) Cardiac defibrillator in situ: (3) Chronic atrial fibrillation: (4) Pneumonia: Plan Patient is a complex 69 year old female admitted with multifactorial SOB, volume overload consistent with acute decompensated HFrEF 06/11/25: -Patient is stable from a cardiac perspective. -Continue with IV lasix as patient maintains mild volume overload on exam. Reassess volume status in A< -Strict I&O, daily weights, and close monitoring of renal function/ serum electrolytes. -Weights continue to trend down -continue lasix 20mg IV BID and Spironolactone 12.5mg PO Daily as BP can tolerate. -Known chronic Afib, also with BiV ICD. Continue Metoprolol and Eliquis. No bleeding concerns. -Ongoing tx of possible pneumonia per primary care team. -No further cardiac testing at this time. -Cardiology will sign off. Please feel free to reach out with any new concerns. Case has been discussed with Dr. Gibson . Further recommendations regarding plan of care as per her assessment. I spent a total of 30 minutes on the date of service in preparation, delivery, documentation of the care provided to the patient excluding any time spent in the performance of separately billed services. [facility]UP [facility] Admission and Anticipated Discharge Date Admission Date: June 07, 2025 Supervising Physician Co-Signing Physician Notes I have reviewed the advanced practitioner's documentation on the date of service referenced in note, and I agree with, and take responsibility for the plan of care. I spent a total of [15] minutes coordinating, documenting, and providing care for this patient excluding time spent in the performance of separately billed services or time spent by another provider. Subjective 06/11/25: Patient seen and examined in follow up today. Feeling fair. Patient endorses shortness of breath while there to see patient. No acute changes on telemetry. No acute exam findings. SPO2 stable. Labs, vitals, diagnostics, telemetry and documentation reviewed. Telemetry reviewed showing Paced, 60's. Currently receiving nebulizer treatment with improvement. Review of Systems Review of Systems: All systems reviewed & are unremarkable except as noted in HPI & below Physical Exam Constitutional: well developed, well nourished and + ill appearing; no acute distress Neck: normal visual inspection and trachea midline Respiratory: normal respiratory effort; no respiratory distress and no labored breathing Cardiovascular: Rate/Rhythm: regular rate and regular rhythm Heart Sounds: normal S1 and normal S2 Vessels: dorsalis pedis pulses present; no JVD Extremities: + edema (+1 BLE) Skin: no rashes, warm and dry Psychiatric: A+Ox3, euthymic affect Results & Data Vital Signs (Past 12 Hours) Vital Signs Temp Pulse Pulse Resp BP Pulse Ox O2 Del Method 06/11/25 13:50 66 06/11/25 12:38 36.5 C 71 17 111/73 96 Room Air 06/11/25 11:15 81 18 97 Room Air 06/11/25 08:00 Room Air 06/11/25 07:54 36.5 C 62 16 94/62 L 96 Room Air 06/11/25 07:48 60 Laboratory Results Comprehensive Metabolic Panel 06/10/25 06/11/25 Range/Units 19:47 05:36 Sodium 135 L 136 (136-145) mmol/L Potassium 4.4 4.5 (3.5-5.1) mmol/L Chloride 98 101 (98-107) mmol/L Carbon Dioxide 30 30 (21-32) mmol/L BUN 30 H 30 H (6-23) mg/dl Creatinine 1.54 H 1.59 H (0.6-1.2) mg/dl Glucose 89 79 (70-99(Fasting)) mg/dl Calcium 9.9 9.9 (8.6-10.3) mg/dl Intake and Output 06/11/25 06/11/25 06/11/25 06:59 14:59 22:59 Output Total Balance - -1 Output: Urine/Stool Mix Other: # Unmeasured Voids 1 Weight 61.3 kg Weight Measurement Method Standing Scale PG Care Time/CCT Total # of Minutes Spent Total Time Spent with Patient: Total time spent is greater than 50% in coordination of care (as documented) at patient's floor/unit and/or counseling patient: Coding [place] [address] SUB INP/OBS CARE 2/35MIN Patient Type Established Diagnoses Acute on chronic heart failure with reduced ejection fraction (HFrEF, <= 40%) I50.23 Cardiac defibrillator in situ Z95.810 Chronic atrial fibrillation I48.20 Pneumonia J18.9 Laterality: left Lung location: unspecified part of lung Pneumonia type: due to unspecified organism Time Spent (min) 45 (4) Pneumonia Laterality: left Lung location: unspecified part of lung Pneumonia type: due to unspecified organism Qualified Code(s): J18.9 - Pneumonia, unspecified organism
--- NOTE | 2025-06-11 16:31 | Hospitalist Progress Note ---
Date of Service June 11, 2025 Assessment & Plan (1) Acute on chronic systolic (congestive) heart failure: Plan: 69-year-old female with past medical history significant for dyslipidemia, hypothyroidism, secondary renal hyperparathyroidism, chronic systolic CHF, drug- induced cardiomyopathy, nonischemic cardiomyopathy, hypertension, status post biventricular ICD placement, CKD stage III, peripheral artery disease, permanent atrial fibrillation, chronic idiopathic constipation, traumatic cataract, osteoporosis, charcoaled Penny tooth disease, history of breast cancer, general anxiety disorder, blindness of left eye, lives at home with her and ildren comes because of shortness of breath. Patient states since 1 week getting progressively short of breath. Having some cough. Also had fever. Also has lower extremity edema. Denies any chest pain. No headache. No runny nose or sore throat. No nausea. No abdominal pain. Normal bowel and bladder movements. Hemodynamics are okay.Complains of some soreness in the right inguinal region and has some rash there. Acute on chronic systolic CHF Drug-induced cardiomyopathy S/P Biventricular ICD --Chest CT:Small to moderate right pleural effusion, increased since the prior. Associated right lower lobe atelectasis. --BNP: 1304 --Recent ECHO: Left ventricular ejection fraction 20 to 25%. Diffuse hypokinesis. No thrombus. Mild mitral regurgitation. Right ventricle systolic function is mildly reduced. Moderate tricuspid regurgitation. Mild pulmonary hypertension. --Received IV Lasix --Continue Jardiance, metoprolol succinate Monitor I's and O's, daily weight Appreciate cardiology input Midodrine increased to 7.5 mg 3 times a day Transition to torsemide 20 mg daily as patient has been hypotensive with IV diuretics Needs follow-up with cardiology on discharge Aldactone currently on hold due to rising potassium levels Permanent atrial fibrillation Continue metoprolol succinate 25 mg twice a day On Eliquis for anticoagulation Rate controlled, monitor Peripheral artery disease On Eliquis and statin CKD stage III Baseline creatinine ~ 1.4-1.5 Monitor renal function Avoid nephrotoxic agents as able Creatinine stable Constipation Continue bowel regimen Encouraged to ambulate General Anxiety disorder Continue escitalopram Hypothyroidism Continue levothyroxine Chronic idiopathic constipation Continue bowel regimen Subacute right greater trochanteric fracture Recurrent falls -Right femur fracture on femur CT on 04/10/2025 shows acute nondisplaced minimally commuted fracture of the right greater trochanter femur with possible intertrochanteric extension of the fracture. MRI was not done because of ICD. Conservative management recommended. Non weightbearing right lower extremity for 6 weeks recommended. Advised to walk with walker - Hip CT: Healing subacute right greater trochanteric fracture demonstrates unchanged alignment.. Moderate to severe osteoarthritis of the right hip. --Hip/Pelvic X ray: Right acetabular protrusio deformity. Healing nondisplaced right superior greater trochanteric fracture. Pain control Using walker for ambulation PT OT, fall precaution Appreciate orthopedics input: Weightbearing as tolerated right lower extremity, walker with activity Needs follow-up with orthopedics in 4 weeks as outpatient Right inguinal region and groin rash nystatin powder DVT Px: Eliquis CODE STATUS Full code Disposition PT recommends SNF placement Patient prefers to return home with home health Admission and Anticipated Discharge Date Admission Date: June 07, 2025 Subjective Patient is seen and examined at bedside Hypotensive overnight requiring albumin infusion Subjectively feels better today Still having some dyspnea and chest discomfort Review of Systems Review of Systems: All systems reviewed & are unremarkable except as noted in Subjective Physical Exam Physical Exam: Physical Exam: Vitals signs as noted above General Appearance:Thin, frail, no apparent distress Head: normocephalic, Atraumatic Eyes: normal inspection, EOMI Neck: supple, Trachea midline Respiratory/Chest: Decreased breath sounds,scattered wheezing, Crackles, No accessory muscle use Cardiovascular: S1, S2, No murmur Abdomen/GI:Soft, Non tender, Bowel sounds present Extremities/Musculoskeletal:normal inspection, 2+ LE edema Neurologic/Psych:AAOX3, grossly no focal neurological deficits Skin: normal color, warm Results & Data Results & Data Vital Signs (Past 12 Hours) Vital Signs Temp Pulse Pulse Resp BP Pulse Ox O2 Del Method 06/11/25 13:50 66 06/11/25 12:38 36.5 C 71 17 111/73 96 Room Air 06/11/25 11:15 81 18 97 Room Air 06/11/25 08:00 Room Air 06/11/25 07:54 36.5 C 62 16 94/62 L 96 Room Air 06/11/25 07:48 60 Laboratory Results [facility] 06/10/25 06/11/25 19:47 05:36 Sodium 135 L 136 Potassium 4.4 4.5 Chloride 98 101 Carbon Dioxide 30 30 BUN 30 H 30 H Creatinine 1.54 H 1.59 H Glucose 89 79 Calcium 9.9 9.9
[2025-06-12 07:41] LABS: Hematocrit (blood only) 38.8 % (37.0-47.0); Hemoglobin 12.6 g/dl (12.0-16.0); Mean Corpuscular Hemoglobin 26.8 pg (25.0-34.0); Mean Corpuscular Volume 82.4 fL (80.0-100.0); Platelet Count 170 K/uL (130-400); RDW Standard Deviation 60.1 fL (36.4-46.3); Red Blood Count 4.71 M/uL (4.20-5.40); White Blood Count 5.55 K/ul (4.8-10.8)
[2025-06-12 08:01] LABS: Anion Gap 8.0 (3-11); Blood Urea Nitrogen 31.0 mg/dl (6-23); Calcium 9.8 mg/dl (8.6-10.3); Carbon Dioxide 32.0 mmol/L (21-32); Chloride 100.0 mmol/L (98-107); Creatinine Clr Calc Pharmacy 34.0 ml/min; Glucose 80.0 mg/dl (70-99(Fasting)); Potassium 3.7 mmol/L (3.5-5.1); Sodium 140.0 mmol/L (136-145)
--- NOTE | 2025-06-12 15:08 | Hospitalist Progress Note ---
Date of Service June 12, 2025 Assessment & Plan (1) Acute on chronic systolic (congestive) heart failure: Plan: 69-year-old female with past medical history significant for dyslipidemia, hypothyroidism, secondary renal hyperparathyroidism, chronic systolic CHF, drug- induced cardiomyopathy, nonischemic cardiomyopathy, hypertension, status post biventricular ICD placement, CKD stage III, peripheral artery disease, permanent atrial fibrillation, chronic idiopathic constipation, traumatic cataract, osteoporosis, charcoaled Penny tooth disease, history of breast cancer, general anxiety disorder, blindness of left eye, lives at home with her and ildren comes because of shortness of breath. Patient states since 1 week getting progressively short of breath. Having some cough. Also had fever. Also has lower extremity edema. Denies any chest pain. No headache. No runny nose or sore throat. No nausea. No abdominal pain. Normal bowel and bladder movements. Hemodynamics are okay.Complains of some soreness in the right inguinal region and has some rash there. Acute on chronic systolic CHF Drug-induced cardiomyopathy S/P Biventricular ICD --Chest CT:Small to moderate right pleural effusion, increased since the prior. Associated right lower lobe atelectasis. --BNP: 1304 --Recent ECHO: Left ventricular ejection fraction 20 to 25%. Diffuse hypokinesis. No thrombus. Mild mitral regurgitation. Right ventricle systolic function is mildly reduced. Moderate tricuspid regurgitation. Mild pulmonary hypertension. --Received IV Lasix --Continue Jardiance, metoprolol succinate Monitor I's and O's, daily weight Appreciate cardiology input Midodrine increased to 7.5 mg 3 times a day Continue torsemide, Aldactone Needs follow-up with cardiology on discharge Monitor potassium levels closely Patient not interested in rehab placement Prefers to be discharged home with home health as able Permanent atrial fibrillation Continue metoprolol succinate 25 mg twice a day On Eliquis for anticoagulation Rate controlled, monitor Peripheral artery disease On Eliquis and statin CKD stage III Baseline creatinine ~ 1.4-1.5 Monitor renal function Avoid nephrotoxic agents as able Creatinine 1.3 today Constipation Continue bowel regimen Encouraged to ambulate General Anxiety disorder Continue escitalopram Hypothyroidism Continue levothyroxine Chronic idiopathic constipation Continue bowel regimen Subacute right greater trochanteric fracture Recurrent falls -Right femur fracture on femur CT on 04/10/2025 shows acute nondisplaced minimally commuted fracture of the right greater trochanter femur with possible intertrochanteric extension of the fracture. MRI was not done because of ICD. Conservative management recommended. Non weightbearing right lower extremity for 6 weeks recommended. Advised to walk with walker - Hip CT: Healing subacute right greater trochanteric fracture demonstrates unchanged alignment.. Moderate to severe osteoarthritis of the right hip. --Hip/Pelvic X ray: Right acetabular protrusio deformity. Healing nondisplaced right superior greater trochanteric fracture. Pain control Using walker for ambulation PT OT, fall precaution Appreciate orthopedics input: Weightbearing as tolerated right lower extremity, walker with activity Needs follow-up with orthopedics in 4 weeks as outpatient Right inguinal region and groin rash nystatin powder DVT Px: Eliquis CODE STATUS Full code Disposition PT recommends SNF placement Patient prefers to return home with home health Admission and Anticipated Discharge Date Admission Date: June 07, 2025 Subjective Patient is seen and examined at bedside Blood pressure variable Continues to complain of hip pain Not interested in rehab placement Leg edema improving Denies any significant chest pain, dyspnea today Review of Systems Review of Systems: All systems reviewed & are unremarkable except as noted in Subjective Physical Exam Physical Exam: Physical Exam: Vitals signs as noted above General Appearance:Thin, frail, no apparent distress Head: normocephalic, Atraumatic Eyes: normal inspection, EOMI Neck: supple, Trachea midline Respiratory/Chest: Decreased breath sounds, CTA, No accessory muscle use Cardiovascular: S1, S2, No murmur Abdomen/GI:Soft, Non tender, Bowel sounds present Extremities/Musculoskeletal:normal inspection, 2+ LE edema Neurologic/Psych:AAOX3, grossly no focal neurological deficits Skin: normal color, warm Results & Data Results & Data Vital Signs (Past 12 Hours) Vital Signs Temp Pulse Pulse Resp BP Pulse Ox O2 Del Method 06/12/25 13:31 74 06/12/25 11:37 60 18 92/55 L 97 Room Air 06/12/25 09:36 100/65 06/12/25 09:17 60 06/12/25 07:59 36.6 C 63 16 102/64 98 Room Air 06/12/25 04:09 36.4 C L 63 17 94/56 L 97 Room Air Laboratory Results Short CBC 06/12/25 Range/Units 07:15 WBC 5.55 (4.8-10.8) K/ul Hgb 12.6 (12.0-16.0) g/dl Hct 38.8 (37.0-47.0) % Plt Count 170 (130-400) K/uL BMP 06/12/25 07:15 Sodium 140 Potassium 3.7 Chloride 100 Carbon Dioxide 32 BUN 31 H Creatinine 1.33 H Glucose 80 Calcium 9.8
[2025-06-13] MEDS: MIDODRINE HCL 10 MG TAB PO STA (04:26)
[2025-06-13 10:53] LABS: Anion Gap 8.0 (3-11); Blood Urea Nitrogen 34.0 mg/dl (6-23); Calcium 9.6 mg/dl (8.6-10.3); Carbon Dioxide 33.0 mmol/L (21-32); Chloride 96.0 mmol/L (98-107); Creatinine Clr Calc Pharmacy 29.1 ml/min; Glucose 88.0 mg/dl (70-99(Fasting)); Potassium 3.2 mmol/L (3.5-5.1); Sodium 137.0 mmol/L (136-145)
--- NOTE | 2025-06-13 11:21 | XRay Report ---
XR chest 1V portable CLINICAL HISTORY: chf COMPARISON STUDY: 06/08/2025 FINDINGS: Stable pacemaker. Stable mild cardiomegaly without pulmonary vascular congestion. There is a small right pleural effusion. No consolidation. No pneumothorax. IMPRESSION: Small right pleural effusion. ACT 112: Negative or not required by law. Electronically signed by: Marvin Bar M.D. 06/13/2025 11:19 AM
[2025-06-13] MEDS: MIDODRINE HCL 10 MG TAB PO SCH (12:29)
--- NOTE | 2025-06-13 14:04 | XRay Report ---
XR knee RT 3V CLINICAL HISTORY: Knee swelling COMPARISON: 04/09/2025 FINDINGS: There is mild osteoarthritis. Stable chronic calcification above the patella. There is a m ild joint effusion, increased. No fracture or dislocation seen. IMPRESSION: No fracture seen. ACT 112: Negative or not required by law. Electronically signed by: Marvin Bar M.D. 06/13/2025 2:03 PM
--- NOTE | 2025-06-13 15:53 | Hospitalist Progress Note ---
Date of Service June 13, 2025 Assessment & Plan (1) Acute on chronic systolic (congestive) heart failure: Plan: 69-year-old female with past medical history significant for dyslipidemia, hypothyroidism, secondary renal hyperparathyroidism, chronic systolic CHF, drug- induced cardiomyopathy, nonischemic cardiomyopathy, hypertension, status post biventricular ICD placement, CKD stage III, peripheral artery disease, permanent atrial fibrillation, chronic idiopathic constipation, traumatic cataract, osteoporosis, charcoaled Penny tooth disease, history of breast cancer, general anxiety disorder, blindness of left eye, lives at home with her and ildren comes because of shortness of breath. Patient states since 1 week getting progressively short of breath. Having some cough. Also had fever. Also has lower extremity edema. Denies any chest pain. No headache. No runny nose or sore throat. No nausea. No abdominal pain. Normal bowel and bladder movements. Hemodynamics are okay.Complains of some soreness in the right inguinal region and has some rash there. Acute on chronic systolic CHF Drug-induced cardiomyopathy S/P Biventricular ICD --Chest CT:Small to moderate right pleural effusion, increased since the prior. Associated right lower lobe atelectasis. --BNP: 1304 --Recent ECHO: Left ventricular ejection fraction 20 to 25%. Diffuse hypokinesis. No thrombus. Mild mitral regurgitation. Right ventricle systolic function is mildly reduced. Moderate tricuspid regurgitation. Mild pulmonary hypertension. --Received IV Lasix --Continue Jardiance, metoprolol succinate Monitor I's and O's, daily weight Appreciate cardiology input Midodrine increased to 10 mg 3 times a day Continue torsemide, Aldactone Monitor potassium levels closely Patient not interested in rehab placement Prefers to be discharged home with home health as able Difficult to aggressively diurese given low blood pressure Seem to be diuresing better with torsemide Continue fluid restriction Permanent atrial fibrillation Continue metoprolol succinate 25 mg twice a day On Eliquis for anticoagulation Rate controlled, monitor Peripheral artery disease On Eliquis and statin CKD stage III Baseline creatinine ~ 1.4-1.5 Monitor renal function Avoid nephrotoxic agents as able Creatinine 1.5 today Constipation Continue bowel regimen Encouraged to ambulate General Anxiety disorder Continue escitalopram Hypothyroidism Continue levothyroxine Chronic idiopathic constipation Continue bowel regimen Subacute right greater trochanteric fracture Recurrent falls -Right femur fracture on femur CT on 04/10/2025 shows acute nondisplaced minimally commuted fracture of the right greater trochanter femur with possible intertrochanteric extension of the fracture. MRI was not done because of ICD. Conservative management recommended. Non weightbearing right lower extremity for 6 weeks recommended. Advised to walk with walker - Hip CT: Healing subacute right greater trochanteric fracture demonstrates unchanged alignment.. Moderate to severe osteoarthritis of the right hip. --Hip/Pelvic X ray: Right acetabular protrusio deformity. Healing nondisplaced right superior greater trochanteric fracture. Pain control Using walker for ambulation PT OT, fall precaution Appreciate orthopedics input: Weightbearing as tolerated right lower extremity, walker with activity Needs follow-up with orthopedics in 4 weeks as outpatient Right inguinal region and groin rash nystatin powder DVT Px: Eliquis CODE STATUS Full code Disposition PT recommends SNF placement Patient prefers to return home with home health Admission and Anticipated Discharge Date Admission Date: June 07, 2025 Subjective Patient is seen and examined at bedside Reports persistent leg edema and also has some knee swelling Denies any significant chest pain, dyspnea today Discussed with cardiology today Review of Systems Review of Systems: All systems reviewed & are unremarkable except as noted in Subjective Physical Exam Physical Exam: Physical Exam: Vitals signs as noted above General Appearance:Thin, frail, no apparent distress Head: normocephalic, Atraumatic Eyes: normal inspection, EOMI Neck: supple, Trachea midline Respiratory/Chest: Decreased breath sounds, CTA, No accessory muscle use Cardiovascular: S1, S2, No murmur Abdomen/GI:Soft, Non tender, Bowel sounds present Extremities/Musculoskeletal:normal inspection, 2+ LE edema Neurologic/Psych:AAOX3, grossly no focal neurological deficits Skin: normal color, warm Results & Data Results & Data Vital Signs (Past 12 Hours) Vital Signs Temp Pulse Pulse Resp BP Pulse Ox O2 Del Method 06/13/25 15:43 36.5 C 60 16 103/68 100 Room Air 06/13/25 11:56 36.6 C 61 16 100/69 95 Room Air 06/13/25 08:12 62 107/75 06/13/25 08:00 60 06/13/25 07:49 36.4 C L 75 18 99/64 L 98 Room Air 06/13/25 05:30 92/54 L 06/13/25 03:52 36.5 C 60 16 83/55 L 92 Room Air Laboratory Results [facility] 06/13/25 09:21 Sodium 137 Potassium 3.2 L Chloride 96 L Carbon Dioxide 33 H BUN 34 H Creatinine 1.55 H Glucose 88 Calcium 9.6
[2025-06-13] MEDS: POTASSIUM CHLORIDE 10 MEQ TABCR PO ONE (20:22)
[2025-06-14 06:52] LABS: Anion Gap 9.0 (3-11); Blood Urea Nitrogen 32.0 mg/dl (6-23); Calcium 9.4 mg/dl (8.6-10.3); Carbon Dioxide 31.0 mmol/L (21-32); Chloride 98.0 mmol/L (98-107); Creatinine Clr Calc Pharmacy 29.7 ml/min; Glucose 77.0 mg/dl (70-99(Fasting)); Potassium 3.5 mmol/L (3.5-5.1); Sodium 138.0 mmol/L (136-145)
--- NOTE | 2025-06-14 15:06 | Hospitalist Progress Note ---
Date of Service June 14, 2025 Assessment & Plan (1) Acute on chronic systolic (congestive) heart failure: Plan: 69-year-old female with past medical history significant for dyslipidemia, hypothyroidism, secondary renal hyperparathyroidism, chronic systolic CHF, drug- induced cardiomyopathy, nonischemic cardiomyopathy, hypertension, status post biventricular ICD placement, CKD stage III, peripheral artery disease, permanent atrial fibrillation, chronic idiopathic constipation, traumatic cataract, osteoporosis, charcoaled Penny tooth disease, history of breast cancer, general anxiety disorder, blindness of left eye, lives at home with her and children comes because of shortness of breath. Patient states since 1 week getting progressively short of breath. Having some cough. Also had fever. Also has lower extremity edema. Denies any chest pain. No headache. No runny nose or sore throat. No nausea. No abdominal pain. Normal bowel and bladder movements. Hemodynamics are okay.Complains of some soreness in the right inguinal region and has some rash there. Acute on chronic systolic CHF Drug-induced cardiomyopathy S/P Biventricular ICD --Chest CT:Small to moderate right pleural effusion, increased since the prior. Associated right lower lobe atelectasis. --BNP: 1304 --Recent ECHO: Left ventricular ejection fraction 20 to 25%. Diffuse hypokinesis. No thrombus. Mild mitral regurgitation. Right ventricle systolic function is mildly reduced. Moderate tricuspid regurgitation. Mild pulmonary hypertension. --Received IV Lasix --Continue Jardiance, metoprolol succinate Monitor I's and O's, daily weight Appreciate cardiology input Midodrine increased to 10 mg 3 times a day Continue torsemide, Aldactone Patient not interested in rehab placement Prefers to be discharged home with home health as able Difficult to aggressively diurese given low blood pressure Diuresing better on torsemide/Aldactone Continue fluid restriction Leg edema slowly improving Needs follow-up with cardiology on discharge Permanent atrial fibrillation Continue metoprolol succinate 25 mg twice a day On Eliquis for anticoagulation Rate controlled, monitor Peripheral artery disease On Eliquis and statin CKD stage III Baseline creatinine ~ 1.4-1.5 Monitor renal function Avoid nephrotoxic agents as able Creatinine 1.5 today Constipation Continue bowel regimen Encouraged to ambulate General Anxiety disorder Continue escitalopram Hypothyroidism Continue levothyroxine Chronic idiopathic constipation Continue bowel regimen Subacute right greater trochanteric fracture Recurrent falls -Right femur fracture on femur CT on 04/10/2025 shows acute nondisplaced minimally commuted fracture of the right greater trochanter femur with possible intertrochanteric extension of the fracture. MRI was not done because of ICD. Conservative management recommended. Non weightbearing right lower extremity for 6 weeks recommended. Advised to walk with walker - Hip CT: Healing subacute right greater trochanteric fracture demonstrates unchanged alignment.. Moderate to severe osteoarthritis of the right hip. --Hip/Pelvic X ray: Right acetabular protrusio deformity. Healing nondisplaced right superior greater trochanteric fracture. Pain control Using walker for ambulation PT OT, fall precaution Appreciate orthopedics input: Weightbearing as tolerated right lower extremity, walker with activity Needs follow-up with orthopedics in 4 weeks as outpatient Right inguinal region and groin rash nystatin powder DVT Px: Eliquis CODE STATUS Full code Disposition PT recommends SNF placement Patient prefers to return home with home health Admission and Anticipated Discharge Date Admission Date: June 07, 2025 Subjective Patient is seen and examined at bedside Leg swelling slowly improving Ambulating in hallway with PT today No new complaint Denies any chest pain, dyspnea, abdominal pain Saturating well on room air Review of Systems Review of Systems: All systems reviewed & are unremarkable except as noted in Subjective Physical Exam Physical Exam: Physical Exam: Vitals signs as noted above General Appearance:Thin, frail, no apparent distress Head: normocephalic, Atraumatic Eyes: normal inspection, EOMI Neck: supple, Trachea midline Respiratory/Chest: Decreased breath sounds, CTA, No accessory muscle use Cardiovascular: S1, S2, No murmur Abdomen/GI:Soft, Non tender, Bowel sounds present Extremities/Musculoskeletal:normal inspection, LE edema improving Neurologic/Psych:AAOX3, grossly no focal neurological deficits Skin: normal color, warm Results & Data Results & Data Vital Signs (Past 12 Hours) Vital Signs Temp Pulse Pulse Resp BP Pulse Ox O2 Del Method 06/14/25 11:33 36.3 C L 59 L 19 97/65 L 99 Room Air 06/14/25 08:00 60 06/14/25 07:57 36.4 C L 64 19 102/60 92 Room Air 06/14/25 06:03 103/66 06/14/25 04:07 36.6 C 60 18 93/55 L 92 Room Air Laboratory Results [facility] 06/14/25 05:51 Sodium 138 Potassium 3.5 Chloride 98 Carbon Dioxide 31 BUN 32 H Creatinine 1.52 H Glucose 77 Calcium 9.4
--- NOTE | 2025-06-15 07:56 | Hospitalist Progress Note ---
Date of Service June 15, 2025 Assessment & Plan (1) Acute on chronic systolic (congestive) heart failure: Plan: 69-year-old female with past medical history significant for dyslipidemia, hypothyroidism, secondary renal hyperparathyroidism, chronic systolic CHF, drug- induced cardiomyopathy, nonischemic cardiomyopathy, hypertension, status post biventricular ICD placement, CKD stage III, peripheral artery disease, permanent atrial fibrillation, chronic idiopathic constipation, traumatic cataract, osteoporosis, charcoaled Penny tooth disease, history of breast cancer, general anxiety disorder, blindness of left eye, lives at home with her and children comes because of shortness of breath. Patient states since 1 week getting progressively short of breath. Having some cough. Also had fever. Also has lower extremity edema. Denies any chest pain. No headache. No runny nose or sore throat. No nausea. No abdominal pain. Normal bowel and bladder movements. Hemodynamics are okay.Complains of some soreness in the right inguinal region and has some rash there. Acute on chronic systolic CHF Drug-induced cardiomyopathy S/P Biventricular ICD --Chest CT:Small to moderate right pleural effusion, increased since the prior. Associated right lower lobe atelectasis. --BNP: 1304 --Recent ECHO: Left ventricular ejection fraction 20 to 25%. Diffuse hypokinesis. No thrombus. Mild mitral regurgitation. Right ventricle systolic function is mildly reduced. Moderate tricuspid regurgitation. Mild pulmonary hypertension. --Received IV Lasix --Continue Jardiance, metoprolol succinate Monitor I's and O's, daily weight Appreciate cardiology input Midodrine increased to 10 mg 3 times a day Continue torsemide, Aldactone Patient not interested in rehab placement Prefers to be discharged home with home health as able Difficult to aggressively diurese given low blood pressure Diuresing better on torsemide/Aldactone Continue fluid restriction Leg edema slowly improving Needs follow-up with cardiology on discharge Permanent atrial fibrillation Continue metoprolol succinate 25 mg twice a day On Eliquis for anticoagulation Rate controlled, monitor Peripheral artery disease On Eliquis and statin CKD stage III Baseline creatinine ~ 1.4-1.5 Monitor renal function Avoid nephrotoxic agents as able Creatinine 1.3 today Constipation Continue bowel regimen Encouraged to ambulate General Anxiety disorder Continue escitalopram Hypothyroidism Continue levothyroxine Chronic idiopathic constipation Continue bowel regimen Subacute right greater trochanteric fracture Recurrent falls -Right femur fracture on femur CT on 04/10/2025 shows acute nondisplaced minimally commuted fracture of the right greater trochanter femur with possible intertrochanteric extension of the fracture. MRI was not done because of ICD. Conservative management recommended. Non weightbearing right lower extremity for 6 weeks recommended. Advised to walk with walker - Hip CT: Healing subacute right greater trochanteric fracture demonstrates unchanged alignment.. Moderate to severe osteoarthritis of the right hip. --Hip/Pelvic X ray: Right acetabular protrusio deformity. Healing nondisplaced right superior greater trochanteric fracture. Pain control Using walker for ambulation PT OT, fall precaution Appreciate orthopedics input: Weightbearing as tolerated right lower extremity, walker with activity Needs follow-up with orthopedics in 4 weeks as outpatient Right inguinal region and groin rash nystatin powder DVT Px: Eliquis CODE STATUS Full code Disposition PT recommends SNF placement Patient prefers to return home with home health Admission and Anticipated Discharge Date Admission Date: June 07, 2025 Subjective Pt seen in follow up of CHF, hip fx - managed conservatively Sitting up in chair in NAD However reports chest pressure - pt says ongoing and that she mentioned to "everyone", also reports constipation She is breathing comfortably on RA, conversing easily Reports she plans to work w/ PT later and that yesterday she was very tired after she worked w/ PT will obtain ecg, trop and will discuss w/ cardiology Review of Systems Review of Systems: All systems reviewed & are unremarkable except as noted in Subjective Physical Exam Physical Exam: General Appearance: Thin, frail, no apparent distress Head: normocephalic, Atraumatic Eyes: normal inspection, EOMI Neck: supple Respiratory/Chest: Decreased breath sounds, CTA, No accessory muscle use Cardiovascular: S1, S2, No murmur Abdomen/GI:Soft, Non tender, Bowel sounds present Extremities/Musculoskeletal:normal inspection, LE edema improving Neurologic/Psych: awake, alert, answers appropriately, speech fluent Skin: normal color, warm Results & Data Results & Data Vital Signs (Past 12 Hours) Vital Signs Temp Pulse Resp BP Pulse Ox O2 Del Method 06/15/25 07:34 94/59 L 06/15/25 07:12 36.5 C 60 18 83/53 L 92 Room Air 06/14/25 23:39 36.5 C 60 18 93/64 L 93 Room Air 06/14/25 20:12 Room Air Laboratory Results 06/15/25 Range/Units 07:35 WBC 5.46 (4.8-10.8) K/ul RBC 4.33 (4.20-5.40) M/uL Hgb 11.7 L (12.0-16.0) g/dl Hct 34.2 L (37.0-47.0) % MCV 79.0 L (80.0-100.0) fL MCH 27.0 (25.0-34.0) pg MCHC 34.2 (32.0-36.0) g/dL RDW Std Deviation 56.5 H (36.4-46.3) fL RDW Coeff of Beau 19.9 H (11.5-14.5) % Plt Count 164 (130-400) K/uL MPV 10.8 (9.4-12.4) fL Sodium 135 L (136-145) mmol/L Potassium 3.8 (3.5-5.1) mmol/L Chloride 97 L (98-107) mmol/L Carbon Dioxide 32 (21-32) mmol/L Anion Gap 6 (3-11) BUN 29 H (6-23) mg/dl Creatinine 1.31 H (0.6-1.2) mg/dl Est Cr Clr Drug Dosing 34.5 ml/min eGFR 44.66 BUN/Creatinine Ratio 22.1 H (10-20) Glucose 79 (70-99(Fasting)) mg/dl Calcium 9.2 (8.6-10.3) mg/dl Medications Administered Current Inpatient Medications Acetaminophen (Acetaminophen 325 Mg Tab) 650 mg PO Q4H PRN PRN Reason: Pain or Fever Stop: 07/07/25 21:36 Albuterol (Albuterol Hfa 8 Gm Inhaler) 2 puffs INH Q6H PRN PRN Reason: shortness of breath or wheezing Stop: 07/07/25 21:36 Apixaban (Apixaban 5 Mg Tablet) 5 mg PO BID [facility] Stop: 07/07/25 21:36 Last Admin: 06/14/25 20:12 Dose: 5 mg Empagliflozin (Empagliflozin 10 Mg Tab) 10 mg PO QAM [facility] Stop: 07/08/25 08:59 Last Admin: 06/14/25 07:45 Dose: 10 mg Escitalopram Oxalate (Escitalopram Oxalate 10 Mg Tab) 5 mg PO QAM [facility] Stop: 07/08/25 08:59 Last Admin: 06/14/25 07:47 Dose: 5 mg Hydroxyzine HCl (Hydroxyzine Hcl 10 Mg Tab) 10 mg PO QID PRN PRN Reason: Anxiety Stop: 07/08/25 19:22 Last Admin: 06/09/25 12:11 Dose: 10 mg Levalbuterol HCl (Levalbuterol Hcl 0.63 Mg/3 Ml Neb) 0.63 mg NEB Q6H PRN; Protocol PRN Reason: Shortness Of Breath Or Wheezing Stop: 07/09/25 11:07 Last Admin: 06/11/25 11:14 Dose: 0.63 mg Levothyroxine Sodium (Levothyroxine Sodium 75 Mcg Tablet) 75 mcg PO DAILYBB [facility] Stop: 07/08/25 06:29 Last Admin: 06/15/25 05:43 Dose: 75 mcg Loratadine (Loratadine 10 Mg Tab) 10 mg PO QAM [facility] Stop: 07/08/25 12:14 Last Admin: 06/14/25 07:44 Dose: 10 mg Magnesium Hydroxide (Magnesium Hydroxide Susp 30 Ml Udc) 30 ml PO Q6H PRN PRN Reason: Constipation Stop: 07/10/25 09:47 Last Admin: 06/10/25 10:10 Dose: 30 ml Magnesium Oxide (Magnesium Oxide 400 Mg Tab) 400 mg PO QAM [facility] Stop: 07/08/25 08:59 Last Admin: 06/14/25 07:46 Dose: 400 mg Menthol (Cough Drop (Sugar Free) Jose 24 Jose/1 Box) 1 jose BUCCAL Q2H PRN PRN Reason: Sore Throat Stop: 07/10/25 15:33 Last Admin: 06/10/25 16:56 Dose: 1 jose Metoprolol Succinate (Metoprolol Succ 25mg Ext Rel Tab) 25 mg PO BID [facility] Stop: 07/07/25 21:36 Last Admin: 06/14/25 20:11 Dose: Not Given Midodrine (Midodrine Hcl 10 Mg Tab) 10 mg PO TID@0800,1200,1700 [facility] Stop: 07/13/25 11:59 Last Admin: 06/14/25 17:02 Dose: 10 mg Nitroglycerin (Nitroglycerin Sl 0.4 Mg/Tab Tab) 0.4 mg SL Q5M PRN PRN Reason: Chest Pain Stop: 07/07/25 21:36 Nystatin (Nystatin Powder 15gm Btl) 1 appln EXT BID [facility] Stop: 07/08/25 08:59 Last Admin: 06/14/25 20:11 Dose: 1 appln Oxycodone HCl (Oxycodone Hcl Ir 5 Mg Tab (Immediate Release)) 10 mg PO QID PRN PRN Reason: Pain Stop: 06/21/25 21:36 Last Admin: 06/14/25 23:18 Dose: 10 mg Polyethylene Glycol (Polyethylene (Miralax) 17 Gm Pack) 17 gm PO DAILY PRN PRN Reason: Constipation Stop: 07/07/25 21:36 Potassium Chloride (Potassium Chloride Crtab 20 Meq Tabcr) 20 [facility] [place]: 07/08/25 08:59 Last Admin: 06/14/25 07:44 Dose: 20 meq Rosuvastatin Calcium (Rosuvastatin Calcium 20 Mg Tab) 20 mg PO QAM [facility] Stop: 07/08/25 08:59 Last Admin: 06/14/25 07:44 Dose: 20 mg Senna/Docusate Sodium (Docusate Sodium/Senna 50/8.6mg Tab) 1 tab [facility] [place]: 07/08/25 08:59 Last Admin: 06/14/25 07:44 Dose: 1 tab Spironolactone (Spironolactone 12.5 Mg Tab) 12.5 mg PO QAM [facility] Stop: 07/08/25 08:59 Last Admin: 06/14/25 07:45 Dose: 12.5 mg Torsemide (Torsemide 20 Mg Tab) 20 [facility] [place]: 07/11/25 13:44 Last Admin: 06/14/25 07:44 Dose: 20 mg Trazodone HCl (Trazodone Hcl 50 Mg Tab) 50 mg PO HS [facility] Stop: 07/07/25 21:36 Last Admin: 06/14/25 20:16 Dose: 50 mg Vitamin D (Cholecalciferol 25 Mcg (1000 Units) Tab) 50 mcg PO QAM [facility] Stop: 07/08/25 08:59 Last Admin: 06/14/25 07:45 Dose: 50 mcg
[2025-06-15 08:03] LABS: Hematocrit (blood only) 34.2 % (37.0-47.0); Hemoglobin 11.7 g/dl (12.0-16.0); Mean Corpuscular Hemoglobin 27.0 pg (25.0-34.0); Mean Corpuscular Volume 79.0 fL (80.0-100.0); Platelet Count 164 K/uL (130-400); RDW Standard Deviation 56.5 fL (36.4-46.3); Red Blood Count 4.33 M/uL (4.20-5.40); White Blood Count 5.46 K/ul (4.8-10.8)
[2025-06-15 08:23] LABS: Anion Gap 6.0 (3-11); Blood Urea Nitrogen 29.0 mg/dl (6-23); Calcium 9.2 mg/dl (8.6-10.3); Carbon Dioxide 32.0 mmol/L (21-32); Chloride 97.0 mmol/L (98-107); Creatinine Clr Calc Pharmacy 34.5 ml/min; Glucose 79.0 mg/dl (70-99(Fasting)); Potassium 3.8 mmol/L (3.5-5.1); Sodium 135.0 mmol/L (136-145)
--- NOTE | 2025-06-15 15:41 | Electrocardiogram Report ---
Test Reason : Blood Pressure : */* mmHG Vent. Rate : 61 BPM Atrial Rate : 59 BPM P-R Int : * ms QRS Dur : 132 ms QT Int : 474 ms P-R-T Axes : * 173 90 degrees QTcB Int : 477 ms Ventricular-paced rhythm Biventricular pacemaker detected Abnormal ECG When compared with ECG of 08-Jun-2025 19:14, No significant change was found Confirmed by Orestes Rivas ([id number]) on 06/15/2025 3:41:15 PM Referred By: REFERRED SELF Confirmed By: Orestes Rivas
--- NOTE | 2025-06-15 16:18 | Cardiology Progress Note ---
Date of Service June 15, 2025 Assessment & Plan (1) Acute on chronic heart failure with reduced ejection fraction (HFrEF, <= 40%): (2) Cardiac defibrillator in situ: (3) Chronic atrial fibrillation: (4) Pneumonia: Plan Patient is a complex 69 year old female admitted with multifactorial SOB, volume overload consistent with acute decompensated HFrEF EKG today reveals ventricular paced rhythm at 61 bpm with underlying atrial fibrillation 06/15/2025: -Continue torsemide 20 mg by mouth daily, and 1 dose of IV furosemide 20 mg x 1 today and an extra 10 mill equivalents of potassium chloride -Continue midodrine for blood pressure support -continue spironolactone 12.5mg PO Daily as BP can tolerate. -Known chronic Afib, also with BiV ICD. Continue Metoprolol and Eliquis. No bleeding concerns. I spent a total of 35 minutes on the date of service in preparation, delivery, and documentation of the care provided to this patient, excluding any time spent in the performance of separately billed services. Tanja Jamil, Admission and Anticipated Discharge Date Admission Date: June 07, 2025 Subjective Patient reassessed per the request of Dr. Mendieta. She notes ongoing chest heaviness. Shortness of breath when she walked with physical therapy today. She is not on telemetry. Physical Exam Constitutional: WD/WN, vitals as above + thin; no acute distress Neck: normal visual inspection Respiratory: + cough; no respiratory distress and no labored breathing Auscultation: + diminished lung sounds and + wheezes Cardiovascular: Rate/Rhythm: regular rate and regular rhythm Heart Sounds: + murmur (I/ systolic murmur) Vessels: no JVD Extremities: no edema Gastrointestinal (Abdomen): normal bowel sounds, soft, nontender, no hepatosplenomegaly Musculoskeletal: no cyanosis or clubbing, extremities motor strength 5/5 Neurologic: PERRL, EOMI, accommodation nl, no face palsy, no dysarthria Results & Data Vital Signs (Past 12 Hours) Vital Signs Temp Pulse Resp BP Pulse Ox O2 Del Method 06/15/25 15:50 36.4 C L 64 19 103/68 100 Room Air 06/15/25 12:13 63 98/71 L 06/15/25 11:14 36.3 C L 63 19 91/62 L 96 Room Air 06/15/25 08:45 Room Air 06/15/25 07:34 94/59 L 06/15/25 07:12 36.5 C 60 18 83/53 L 92 Room Air Laboratory Results Cardiac Enzymes 06/15/25 Range/Units 11:14 Troponin I High Sens 11.9 (0-14) pg/ml CBC 06/15/25 Range/Units 07:35 WBC 5.46 (4.8-10.8) K/ul RBC 4.33 (4.20-5.40) M/uL Hgb 11.7 L (12.0-16.0) g/dl Hct 34.2 L (37.0-47.0) % Plt Count 164 (130-400) K/uL Comprehensive Metabolic Panel 06/15/25 Range/Units 07:35 Sodium 135 L (136-145) mmol/L Potassium 3.8 (3.5-5.1) mmol/L Chloride 97 L (98-107) mmol/L Carbon Dioxide 32 (21-32) mmol/L BUN 29 H (6-23) mg/dl Creatinine 1.31 H (0.6-1.2) mg/dl Glucose 79 (70-99(Fasting)) mg/dl Calcium 9.2 (8.6-10.3) mg/dl PG Care Time/CCT Total # of Minutes Spent Total Time Spent with Patient: Total time spent is greater than 50% in coordination of care (as documented) at patient's floor/unit and/or counseling patient: Coding Level of Care Code 55183 SUB INP/OBS CARE 2/35MIN Diagnoses Acute on chronic heart failure with reduced ejection fraction (HFrEF, <= 40%) I50.23 Cardiac defibrillator in situ Z95.810 Chronic atrial fibrillation I48.20 Pneumonia J18.9 Laterality: left Lung location: unspecified part of lung Pneumonia type: due to unspecified organism (4) Pneumonia Laterality: left Lung location: unspecified part of lung Pneumonia type: due to unspecified organism Qualified Code(s): J18.9 - Pneumonia, unspecified organism
[2025-06-15] MEDS: POTASSIUM CHLORIDE 10 MEQ TABCR PO STA (16:27)
[2025-06-15] MEDS: FUROSEMIDE INJ 20 MG/2 ML VIAL IV ONE (16:27)
[2025-06-16 08:09] LABS: Hematocrit (blood only) 34.6 % (37.0-47.0); Hemoglobin 11.5 g/dl (12.0-16.0); Mean Corpuscular Hemoglobin 26.7 pg (25.0-34.0); Mean Corpuscular Volume 80.3 fL (80.0-100.0); Platelet Count 187 K/uL (130-400); RDW Standard Deviation 57.8 fL (36.4-46.3); Red Blood Count 4.31 M/uL (4.20-5.40); White Blood Count 5.72 K/ul (4.8-10.8)
[2025-06-16 08:26] LABS: Anion Gap 7.0 (3-11); Blood Urea Nitrogen 29.0 mg/dl (6-23); Calcium 9.1 mg/dl (8.6-10.3); Carbon Dioxide 31.0 mmol/L (21-32); Chloride 99.0 mmol/L (98-107); Creatinine Clr Calc Pharmacy 33.0 ml/min; Glucose 78.0 mg/dl (70-99(Fasting)); Magnesium 2.2 mg/dl (1.7-2.4); Potassium 3.7 mmol/L (3.5-5.1); Sodium 137.0 mmol/L (136-145)
[2025-06-16] MEDS ORDERED: Nursing to Pharmacy Communication SCH (12:15)
--- NOTE | 2025-06-16 12:18 | Cardiology Progress Note ---
Date of Service June 16, 2025 Assessment & Plan (1) Acute on chronic heart failure with reduced ejection fraction (HFrEF, <= 40%): (2) Cardiac defibrillator in situ: (3) Chronic atrial fibrillation: (4) Pneumonia: (5) Closed right hip fracture: Plan Patient is a complex 69 year old female admitted with multifactorial SOB, volume overload consistent with acute decompensated HFrEF EKG today reveals ventricular paced rhythm at 61 bpm with underlying atrial fibrillation. Admitted in April, after mechanical fall with close R hip fracture treated non operatively. She has completed a course of nonweightbearing status and is making progress with PT. 06/16/2025: -Hold oral torsemide today in favor of 1 dose of IV furosemide 20 mg x 1 and an extra 20 mill equivalents of potassium chloride -Continue midodrine for blood pressure support -continue spironolactone 12.5mg PO Daily as BP can tolerate. -Known chronic Afib, also with BiV ICD. Continue Metoprolol and Eliquis. No bleeding concerns. -Tentative discharge on 06/17. Cardiology to sign off . Discharge on torsemide 20 mg am , 10 mg daily at 1400. I spent a total of 35 minutes on the date of service in preparation, delivery, and documentation of the care provided to this patient, excluding any time spent in the performance of separately billed services. Tanja Jamil DO Admission and Anticipated Discharge Date Admission Date: June 07, 2025 Subjective Patient seen in cardiology follow up. Notes diuresis with IV furosemide yesterday. Sitting in the bedside chair. No dizziness. Not on telemetry. Physical Exam Constitutional: WD/WN, vitals as above + thin; no acute distress Neck: normal visual inspection Respiratory: + cough; no respiratory distress and no labored breathing Auscultation: + diminished lung sounds and + wheezes Cardiovascular: Rate/Rhythm: regular rate and regular rhythm Heart Sounds: + murmur (I/ systolic murmur) Vessels: no JVD Extremities: no edema Gastrointestinal (Abdomen): normal bowel sounds, soft, nontender, no hepatosplenomegaly Musculoskeletal: no cyanosis or clubbing, extremities motor strength 5/5 Neurologic: PERRL, EOMI, accommodation nl, no face palsy, no dysarthria Results & Data Vital Signs (Past 12 Hours) Vital Signs Temp Pulse Resp BP Pulse Ox O2 Del Method 06/16/25 11:18 36.5 C 60 18 85/52 L 96 Room Air 06/16/25 09:00 Room Air 06/16/25 07:51 36.6 C 60 19 96/59 L 96 Room Air Laboratory Results CBC 06/16/25 Range/Units 07:37 WBC 5.72 (4.8-10.8) K/ul RBC 4.31 (4.20-5.40) M/uL Hgb 11.5 L (12.0-16.0) g/dl Hct 34.6 L (37.0-47.0) % Plt Count 187 (130-400) K/uL Comprehensive Metabolic Panel 06/16/25 Range/Units 07:37 Sodium 137 (136-145) mmol/L Potassium 3.7 (3.5-5.1) mmol/L Chloride 99 (98-107) mmol/L Carbon Dioxide 31 (21-32) mmol/L BUN 29 H (6-23) mg/dl Creatinine 1.37 H (0.6-1.2) mg/dl Glucose 78 (70-99(Fasting)) mg/dl Calcium 9.1 (8.6-10.3) mg/dl Intake and Output 06/15/25 06/16/25 06/16/25 22:59 06:59 14:59 Intake Total 480 / 600 Output Total 1700 / 2601 301 / 2601 Balance -1219 - Intake: Oral 480 / 600 Output: Urine 400 / 700 Urine Amount (Catheter) 1300 / 1900 300 / 1900 External 1300 / 1900 300 / 1900 # Bowel Movements Other: # Unmeasured Voids 1 Weight 57.9 kg Weight Measurement Method Standing Scale Coding Level of Care Code 09371 SUB INP/OBS CARE 2/35MIN Diagnoses Acute on chronic heart failure with reduced ejection fraction (HFrEF, <= 40%) I50.23 Cardiac defibrillator in situ Z95.810 Chronic atrial fibrillation I48.20 Pneumonia J18.9 Laterality: left Lung location: unspecified part of lung Pneumonia type: due to unspecified organism Closed fracture of right hip, initial encounter S72.001A Encounter type: initial encounter (4) Pneumonia Laterality: left Lung location: unspecified part of lung Pneumonia type: due to unspecified organism Qualified Code(s): J18.9 - Pneumonia, unspecified organism (5) Closed right hip fracture Encounter type: initial encounter Qualified Code(s): S72.001A - Fracture of unspecified part of neck of right femur, initial encounter for closed fracture
[2025-06-16] MEDS: POTASSIUM CHLORIDE CRTAB 20 MEQ TABCR PO STA (12:27)
--- NOTE | 2025-06-16 12:37 | Hospitalist Progress Note ---
Date of Service June 16, 2025 Assessment & Plan (1) Acute on chronic systolic (congestive) heart failure: Plan: 69-year-old female with past medical history significant for dyslipidemia, hypothyroidism, secondary renal hyperparathyroidism, chronic systolic CHF, drug- induced cardiomyopathy, nonischemic cardiomyopathy, hypertension, status post biventricular ICD placement, CKD stage III, peripheral artery disease, permanent atrial fibrillation, chronic idiopathic constipation, traumatic cataract, osteoporosis, charcoaled Penny tooth disease, history of breast cancer, general anxiety disorder, blindness of left eye, lives at home with her and children comes because of shortness of breath. Patient states since 1 week getting progressively short of breath. Having some cough. Also had fever. Also has lower extremity edema. Denies any chest pain. No headache. No runny nose or sore throat. No nausea. No abdominal pain. Normal bowel and bladder movements. Hemodynamics are okay.Complains of some soreness in the right inguinal region and has some rash there. Acute on chronic systolic CHF Drug-induced cardiomyopathy S/P Biventricular ICD --Chest CT:Small to moderate right pleural effusion, increased since the prior. Associated right lower lobe atelectasis. --BNP: 1304 --Recent ECHO: Left ventricular ejection fraction 20 to 25%. Diffuse hypokinesis. No thrombus. Mild mitral regurgitation. Right ventricle systolic function is mildly reduced. Moderate tricuspid regurgitation. Mild pulmonary hypertension. --Received IV Lasix --Continue Jardiance, metoprolol succinate Monitor I's and O's, daily weight Appreciate cardiology input Midodrine increased to 10 mg 3 times a day Continue torsemide, Aldactone Per cardiology -Continue midodrine for blood pressure support, -continue s pironolactone 12.5mg PO Daily as BP can tolerate. , -Known chronic Afib, also with BiV ICD. Continue Metoprolol and Eliquis. No bleeding concerns. -Tentative discharge on 06/17 . Discharge on torsemide 20 mg am , 10 mg daily at 1400. Patient not interested in rehab placement Prefers to be discharged home with home health as able Difficult to aggressively diurese given low blood pressure Diuresing better on torsemide/Aldactone Continue fluid restriction Leg edema improved/resolved Needs follow-up with cardiology on discharge Permanent atrial fibrillation Continue metoprolol succinate 25 mg twice a day On Eliquis for anticoagulation Rate controlled, monitor Peripheral artery disease On Eliquis and statin CKD stage III Baseline creatinine ~ 1.4-1.5 Monitor renal function Avoid nephrotoxic agents as able Creatinine 1.3 today Constipation Continue bowel regimen Encouraged to ambulate General Anxiety disorder Continue escitalopram Hypothyroidism Continue levothyroxine Chronic idiopathic constipation Continue bowel regimen Subacute right greater trochanteric fracture Recurrent falls -Right femur fracture on femur CT on 04/10/2025 shows acute nondisplaced minimally commuted fracture of the right greater trochanter femur with possible intertrochanteric extension of the fracture. MRI was not done because of ICD. Conservative management recommended. Non weightbearing right lower extremity for 6 weeks recommended. Advised to walk with walker - Hip CT: Healing subacute right greater trochanteric fracture demonstrates unchanged alignment.. Moderate to severe osteoarthritis of the right hip. --Hip/Pelvic X ray: Right acetabular protrusio deformity. Healing nondisplaced right superior greater trochanteric fracture. Pain control Using walker for ambulation PT OT, fall precaution Appreciate orthopedics input: Weightbearing as tolerated right lower extremity, walker with activity Needs follow-up with orthopedics in 4 weeks as outpatient Right inguinal region and groin rash nystatin powder DVT Px:Eliquis CODE STATUS Full code Disposition PT recommends SNF placement Patient prefers to return home with home health Admission and Anticipated Discharge Date Admission Date: June 07, 2025 Subjective Pt seen in follow up of CHF, hip fx - managed conservatively Sitting up in chair in NAD Yesterday reported chest pressure, seems improved now. Pt was seen by cardiology and was given iv lasix She is breathing comfortably on RA, conversing easily Her BP continues to be on lower side. Communicated w/ cardiology - will give lasix again today, then plan to DC on torsemide Discussed rehab with the pt - she wants to be discharged home, she will think about rehab though No fevers, chills, shortness of breath, no n/v Review of Systems Review of Systems: All systems reviewed & are unremarkable except as noted in Subjective Physical Exam Physical Exam: General Appearance: Thin, frail, no apparent distress Head: normocephalic, Atraumatic Eyes: normal inspection, EOMI Neck: supple Respiratory/Chest: Decreased breath sounds, CTA, No accessory muscle use Cardiovascular: S1, S2, No murmur Abdomen/GI:Soft, Non tender, Bowel sounds present Extremities/Musculoskeletal:normal inspection, LE edema improving Neurologic/Psych: awake, alert, answers appropriately, speech fluent Skin: normal color, warm Results & Data Results & Data Vital Signs (Past 12 Hours) Vital Signs Temp Pulse Resp BP Pulse Ox O2 Del Method 06/16/25 11:18 36.5 C 60 18 85/52 L 96 Room Air 06/16/25 09:00 Room Air 06/16/25 07:51 36.6 C 60 19 96/59 L 96 Room Air Laboratory Results 06/16/25 Range/Units 07:37 WBC 5.72 (4.8-10.8) K/ul RBC 4.31 (4.20-5.40) M/uL Hgb 11.5 L (12.0-16.0) g/dl Hct 34.6 L (37.0-47.0) % MCV 80.3 (80.0-100.0) fL MCH 26.7 (25.0-34.0) pg MCHC 33.2 (32.0-36.0) g/dL RDW Std Deviation 57.8 H (36.4-46.3) fL RDW Coeff of Beau 19.9 H (11.5-14.5) % Plt Count 187 (130-400) K/uL MPV 11.7 (9.4-12.4) fL Sodium 137 (136-145) mmol/L Potassium 3.7 (3.5-5.1) mmol/L Chloride 99 (98-107) mmol/L Carbon Dioxide 31 (21-32) mmol/L Anion Gap 7 (3-11) BUN 29 H (6-23) mg/dl Creatinine 1.37 H (0.6-1.2) mg/dl Est Cr Clr Drug Dosing 33.0 ml/min eGFR 42.32 BUN/Creatinine Ratio 21.2 H (10-20) Glucose 78 (70-99(Fasting)) mg/dl Calcium 9.1 (8.6-10.3) mg/dl Phosphorus 3.1 (2.5-4.9) mg/dl Magnesium 2.2 (1.7-2.4) mg/dl Medications Administered Current Inpatient Medications Acetaminophen (Acetaminophen 325 Mg Tab) 650 mg PO Q4H PRN PRN Reason: Pain or Fever Stop: 07/07/25 21:36 Albuterol (Albuterol Hfa 8 Gm Inhaler) 2 puffs INH Q6H PRN PRN Reason: shortness of breath or wheezing Stop: 07/07/25 21:36 Apixaban (Apixaban 5 Mg Tablet) 5 mg PO BID [facility] Stop: 07/07/25 21:36 Last Admin: 06/16/25 08:54 Dose: 5 mg Empagliflozin (Empagliflozin 10 Mg Tab) 10 mg PO QAM [facility] Stop: 07/08/25 08:59 Last Admin: 06/16/25 08:55 Dose: 10 mg Escitalopram Oxalate (Escitalopram Oxalate 10 Mg Tab) 5 mg PO QAM [facility] Stop: 07/08/25 08:59 Last Admin: 06/16/25 08:52 Dose: 5 mg Furosemide (Furosemide Inj 20 Mg/2 Ml Vial) 20 mg IV ONE ONE Stop: 06/16/25 14:01 Hydroxyzine HCl (Hydroxyzine Hcl 10 Mg Tab) 10 mg PO QID PRN PRN Reason: Anxiety Stop: 07/08/25 19:22 Last Admin: 06/09/25 12:11 Dose: 10 mg Levalbuterol HCl (Levalbuterol Hcl 0.63 Mg/3 Ml Neb) 0.63 mg NEB Q6H PRN; Protocol PRN Reason: Shortness Of Breath Or Wheezing Stop: 07/09/25 11:07 Last Admin: 06/11/25 11:14 Dose: 0.63 mg Levothyroxine Sodium (Levothyroxine Sodium 75 Mcg Tablet) 75 mcg PO DAILYBB [facility] Stop: 07/08/25 06:29 Last Admin: 06/16/25 06:14 Dose: 75 mcg Loratadine (Loratadine 10 Mg Tab) [facility] [place]: 07/08/25 12:14 Last Admin: 06/16/25 08:55 Dose: 10 mg Magnesium Hydroxide (Magnesium Hydroxide Susp 30 Ml Udc) 30 ml PO Q6H PRN PRN Reason: Constipation Stop: 07/10/25 09:47 Last Admin: 06/10/25 10:10 Dose: 30 ml Magnesium Oxide (Magnesium Oxide 400 Mg Tab) 400 mg PO QAM [facility] Stop: 07/08/25 08:59 Last Admin: 06/16/25 08:53 Dose: 400 mg Menthol (Cough Drop (Sugar Free) Jose 24 Jose/1 Box) 1 jose BUCCAL Q2H PRN PRN Reason: Sore Throat Stop: 07/10/25 15:33 Last Admin: 06/10/25 16:56 Dose: 1 jose Metoprolol Succinate (Metoprolol Succ 25mg Ext Rel Tab) 25 mg PO BID JESSIKA Stop: 07/07/25 21:36 Last Admin: 06/16/25 12:22 Dose: 25 mg Midodrine (Midodrine Hcl 10 Mg Tab) 10 mg PO TID@0800,1200,1700 [facility] Stop: 07/13/25 11:59 Last Admin: 06/16/25 12:22 Dose: 10 mg Nitroglycerin (Nitroglycerin Sl 0.4 Mg/Tab Tab) 0.4 mg SL Q5M PRN PRN Reason: Chest Pain Stop: 07/07/25 21:36 Nystatin (Nystatin Powder 15gm Btl) 1 appln EXT BID [facility] Stop: 07/08/25 08:59 Last Admin: 06/16/25 08:56 Dose: 1 appln Oxycodone HCl (Oxycodone Hcl Ir 5 Mg Tab (Immediate Release)) 10 mg PO QID PRN PRN Reason: Pain Stop: 06/21/25 21:36 Last Admin: 06/16/25 12:27 Dose: 10 mg Polyethylene Glycol (Polyethylene (Miralax) 17 Gm Pack) 17 gm PO DAILY PRN PRN Reason: Constipation Stop: 07/07/25 21:36 Potassium Chloride (Potassium Chloride Crtab 20 Meq Tabcr) 20 meq PO QAM [facility] Stop: 07/08/25 08:59 Last Admin: 06/16/25 09:45 Dose: 20 meq Rosuvastatin Calcium (Rosuvastatin Calcium 20 Mg Tab) 20 mg PO QAM [facility] Stop: 07/08/25 08:59 Last Admin: 06/16/25 08:52 Dose: 20 mg Senna/Docusate Sodium (Docusate Sodium/Senna 50/8.6mg Tab) 1 tab PO QAM [facility] Stop: 07/08/25 08:59 Last Admin: 06/16/25 08:53 Dose: 1 tab Spironolactone (Spironolactone 12.5 Mg Tab) 12.5 mg PO QAM [facility] Stop: 07/08/25 08:59 Last Admin: 06/16/25 08:52 Dose: 12.5 mg Torsemide (Torsemide 20 Mg Tab) [facility] [place]: 07/11/25 13:44 Last Admin: 06/16/25 11:43 Dose: Not Given Trazodone HCl (Trazodone Hcl 50 Mg Tab) 50 mg PO [facility] Stop: 07/07/25 21:36 Last Admin: 06/15/25 20:42 Dose: 50 mg Vitamin D (Cholecalciferol 25 Mcg (1000 Units) Tab) [facility] [place]: 07/08/25 08:59 Last Admin: 06/16/25 08:52 Dose: 50 mcg
[2025-06-16] MEDS: FUROSEMIDE INJ 20 MG/2 ML VIAL IV ONE (15:36)
[2025-06-17 07:50] LABS: Hematocrit (blood only) 36.3 % (37.0-47.0); Hemoglobin 11.2 g/dl (12.0-16.0); Mean Corpuscular Hemoglobin 25.3 pg (25.0-34.0); Mean Corpuscular Volume 82.1 fL (80.0-100.0); Platelet Count 178 K/uL (130-400); RDW Standard Deviation 59.6 fL (36.4-46.3); Red Blood Count 4.42 M/uL (4.20-5.40); White Blood Count 6.26 K/ul (4.8-10.8)
[2025-06-17 08:05] LABS: Anion Gap 6.0 (3-11); Blood Urea Nitrogen 29.0 mg/dl (6-23); Calcium 9.2 mg/dl (8.6-10.3); Carbon Dioxide 32.0 mmol/L (21-32); Chloride 98.0 mmol/L (98-107); Creatinine Clr Calc Pharmacy 32.5 ml/min; Glucose 86.0 mg/dl (70-99(Fasting)); Magnesium 2.3 mg/dl (1.7-2.4); Potassium 4.1 mmol/L (3.5-5.1); Sodium 136.0 mmol/L (136-145)
--- NOTE | 2025-06-17 10:00 | Discharge Summary ---
Date of Service June 17, 2025 Admission HPI Per Admitting Provider 69-year-old female with past medical history significant for dyslipidemia, hypothyroidism, secondary renal hyperparathyroidism, chronic systolic CHF, drug- induced cardiomyopathy, nonischemic cardiomyopathy, hypertension, status post biventricular ICD placement, CKD stage III, peripheral artery disease, permanent atrial fibrillation, chronic idiopathic constipation, traumatic cataract, osteoporosis, charcoaled Penny tooth disease, history of breast cancer, general anxiety disorder, blindness of left eye, lives at home with her and children comes because of shortness of breath. Patient states since 1 week getting progressively short of breath. Having some cough. Also had fever. Also has lower extremity edema. Denies any chest pain. No headache. No runny nose or sore throat. No nausea. No abdominal pain. Normal bowel and bladder movements. Hemodynamics are okay.Complains of some soreness in the right inguinal region and has some rash there. Past medical history. As mentioned above. Past surgical history. Breast capsulotomy open periprosthetic. Bilateral mastectomy. Conization of cervix. Removal of left knee cartilage. Left hip replacement. Bilateral foot surgery. Removal of left eye. Biventricular pacemaker placement. Ligation oviducts. A port removal. Removal of left hip prosthesis. Tonsillectomy and adenoidectomy. Social history. . No smoking. No alcohol use. No drug use. Family history. Father had arthritis. Heart disorder. Hypertension. Charcoaled Penny tooth diseas. Stroke. Mother had arthritis. Breast cancer. Diabetes. Heart disorder. Hypertension. Aunt had breast cancer. Uncle had colon cancer. Uncle had bone cancer. Admission Exam Per Admitting Provider General- Not in acute distress Head- atraumatic Eyes- PERRL. ENT- oropharynx clear Neck- supple, no JVD. Lungs- clear to auscultation mild b/l wheezing Heart- regular rhythm; no murmur, no gallop. Abdomen- normal bowel sounds, soft, nontender, no distension. Extremities- b/l lower extremity +2 edema, no erythema seen Neuro- alert, oriented PERRL, no facial palsy; no dysarthria; moves extremities Skin. Rash seen in the right inguinal region and groin region. Principal Diagnosis Acute on chronic heart failure with reduced ejection fraction Cardiac defibrillator in situ: Chronic atrial fibrillation: Subacute right greater trochanteric fracture Recurrent falls Discharge Exam General Appearance: Thin, frail, no apparent distress Head: normocephalic, Atraumatic Eyes: normal inspection, EOMI Neck: supple Respiratory/Chest: Decreased breath sounds, minimal wheezing, No accessory muscle use Cardiovascular: S1, S2, No murmur Abdomen/GI:Soft, Non tender, Bowel sounds present Extremities/Musculoskeletal:normal inspection, LE edema improved/resolved Neurologic/Psych: awake, alert, answers appropriately, speech fluent Skin: normal color, warm Discharge Data Allergies Allergy/AdvReac Type Severity Reaction Status Date / Time docetaxel Allergy Severe Chest Verified 01/19/25 16:25 pain, syncope, unable to talk, visual disturbances mushroom AdvReac Verified 04/15/25 11:59 Consultations 06/07/25 19:27 ED Decision to Admit Stat 06/08/25 08:00 Consult Cardiology Routine 06/08/25 12:13 Consult Orthopedic Surgery Routine Ordered Studies 06/07/25 20:04 CT chest diagnostic wo con Urgent FINDINGS: Lungs: See below. Pleural space: Small to moderate right pleural effusion, increased since the prior. Associated right lower lobe atelectasis. No pneumothorax. Heart: See below. Bones/joints: Unremarkable. No acute fracture. Soft tissues: Unremarkable. Vasculature: Unremarkable. No thoracic aortic aneurysm. Lymph nodes: Unremarkable. No enlarged lymph nodes. Tubes, lines and devices: Stable left chest wall implanted cardiac device and cardiomegaly. IMPRESSION: Small to moderate right pleural effusion, increased since the prior. Associated right lower lobe atelectasis. 06/08/25 12:14 CT hip RT wo con Urgent FINDINGS: Left hip arthroplasty again noted on the food cart attendant localizer images. Moderate to se kimberly osteoarthritis of the right hip redemonstrated. Healing subacute greater trochanteric fracture demonstrates unchanged alignment. No additional acute fracture, dislocation or avascular necrosis. Demineralized appearance of the bones. No definite intertrochanteric fracture extension on this exam. The imaged intrapelvic structures are unremarkable. Trace free pelvic fluid. Colonic diverticulosis. Urinary bladder wall thickening. Lateral subcutaneous edema of the right hip and thigh. IMPRESSION: 1. Healing subacute right greater trochanteric fracture demonstrates unchanged alignment. 2. Moderate to severe osteoarthritis of the right hip. Hospital Course (1) Acute on chronic systolic (congestive) heart failure: 69-year-old female with past medical history significant for dyslipidemia, hypothyroidism, secondary renal hyperparathyroidism, chronic systolic CHF, drug- induced cardiomyopathy, nonischemic cardiomyopathy, hypertension, status post biventricular ICD placement, CKD stage III, peripheral artery disease, permanent atrial fibrillation, chronic idiopathic constipation, traumatic cataract, osteoporosis, charcoaled Penny tooth disease, history of breast cancer, general anxiety disorder, blindness of left eye, lives at home with her and children comes because of shortness of breath. Patient states since 1 week getting progressively short of breath. Having some cough. Also had fever. Also has lower extremity edema. Denies any chest pain. No headache. No runny nose or sore throat. No nausea. No abdominal pain. Normal bowel and bladder movements. Hemodynamics are okay.Complains of some soreness in the right inguinal region and has some rash there. Acute on chronic systolic CHF Drug-induced cardiomyopathy S/P Biventricular ICD --Chest CT:Small to moderate right pleural effusion, increased since the prior. Associated right lower lobe atelectasis. --BNP: 1304 --Recent ECHO: Left ventricular ejection fraction 20 to 25%. Diffuse hypokinesis. No thrombus. Mild mitral regurgitation. Right ventricle systolic function is mildly reduced. Moderate tricuspid regurgitation. Mild pulmonary hypertension. --Received IV Lasix --Continue Jardiance, metoprolol succinate Monitor I's and O's, daily weight Appreciate cardiology input Midodrine increased to 10 mg 3 times a day Continue torsemide, Aldactone Per cardiology -Continue midodrine for blood pressure support, -continue helena nolactone 12.5mg PO Daily as BP can tolerate. , -Known chronic Afib, also with BiV ICD. Continue Metoprolol and Eliquis. No bleeding concerns. -Tentative discharge on 06/17 . Discharge on torsemide 20 mg am , 10 mg daily at 1400. Patient not interested in rehab placement - held multiple conversations about recommending rehab Prefers to be discharged home with home health as able Difficult to aggressively diurese given low blood pressure Diuresing better on torsemide/Aldactone Continue fluid restriction Leg edema improved/resolved Needs follow-up with cardiology on discharge Permanent atrial fibrillation Continue metoprolol succinate 25 mg twice a day On Eliquis for anticoagulation Rate controlled, monitor Peripheral artery disease On Eliquis and statin CKD stage III Baseline creatinine ~ 1.4-1.5 Monitor renal function Avoid nephrotoxic agents as able Creatinine 1.3 today Constipation Continue bowel regimen Encouraged to ambulate General Anxiety disorder Continue escitalopram Hypothyroidism Continue levothyroxine Chronic idiopathic constipation Continue bowel regimen Subacute right greater trochanteric fracture Recurrent falls -Right femur fracture on femur CT on 04/10/2025 shows acute nondisplaced minimally commuted fracture of the right greater trochanter femur with possible intertrochanteric extension of the fracture. MRI was not done because of ICD. Conservative management recommended. Non weightbearing right lower extremity for 6 weeks recommended. Advised to walk with walker - Hip CT: Healing subacute right greater trochanteric fracture demonstrates unchanged alignment.. Moderate to severe osteoarthritis of the right hip. --Hip/Pelvic X ray: Right acetabular protrusio deformity. Healing nondisplaced right superior greater trochanteric fracture. Pain control Using walker for ambulation PT OT, fall precaution Appreciate orthopedics input: Weightbearing as tolerated right lower extremity, walker with activity Needs follow-up with orthopedics in 4 weeks as outpatient Right inguinal region and groin rash nystatin powder DVT Px:Eliquis CODE STATUS Full code Disposition PT recommends SNF placement Patient prefers to return home with home health Total Time Total Time Spent Total Time Spent (In Minutes): 40 Discharge Plan Discharge Items Patient Disposition: Home - Home Health Services Reason For Visit: ACUTE SYSTOLIC CHF Discharge Diagnosis: Acute on chronic heart failure with reduced ejection fraction Cardiac defibrillator in situ: Chronic atrial fibrillation: Subacute right greater trochanteric fracture Recurrent falls Condition on Discharge: Fair Activity: Per Instructions section Non-emergency contact: Primary Care Provider, Surgeon, Specialist and Message Clerk Call non-emergency contact if: you have any medication questions and your symptoms worsen Follow-up/Referrals: Rose Marie Galloway MD [Primary Care Provider] - (Date & Time 06/21/2025 3:00 PM Provider: Rose Marie Galloway MD Family Medicine [facility] ) Graeme Pang [Physician Tipping Machine Operator] - (Date & Time 07/19/2025 2:00 PM Provider: Graeme Pang PA-[facility] ) Charles Domingo PA [Physician Tipping Machine Operator] - 07/13/25 3:45 pm Diet: Heart Healthy Fluids: 1800ml (7 cups) Addtl Attending Provider Instructions: Follow up with your primary care physician, feather separator, and orthopedic surgeon. The appointment with your primary care physician was scheduled for you for 06/21/2025. Midodrine was increased to 10 mg three times a day because of your low blood pressure. Take spironolactone 12.5 mg daily. Continue taking metoprolol and Eliquis. Stop taking lasix (furosemide) - instead, take torsemide as prescribed 20 mg in the morning and 10 mg early afternoon (around 2 pm). Addtl Pond Tender Provider Instructions: Orthopedic instructions: Weight-bear as tolerated on right lower extremity. Recommend use of walker at all times to assist with ambulation. Ice to injured hip as needed for pain or swelling. Follow-up as scheduled on July 13, 2025 at 3:45 PM. Call [phone] to confirm or reschedule appointments. Call our office if you need assistance with coordinating home physical therapy. Your recent appointment in June was rescheduled to July. Call your Primary Care doctor if any of the following symptoms or problems start or get worse: * Shortness of breath or difficulty breathing * Wake up at night short of breath * Chest pain * Cough * Swelling of your hands, feet, or legs * More fatigued or tired with your normal activity * Palpitations - sudden fast heart beats WEIGHT * Weigh yourself every morning after using the bathroom. * Use the same scale. * Wear the same amount of clothing. * Write your weight down on a chart. * Call your Primary Care doctor if you gain more than 2-3 pounds in 1-2 days. MEDICATIONS * Use this discharge instruction sheet for medication instructions. * Take your medications at the time your doctor ordered. * Do not skip a dose of your medicines. * If you miss a dose of medicine, take it as soon as possible, but DO NOT DOUBLE A DOSE. * Read your medicine information when you get home. * Know all of the side effects of your medicine. If in doubt, ask your pharmacist * Call your Primary Care doctor's office if you have any side effects. * Be sure all of your doctors know what medicine and herbs you take (including cold, flu, and herbal medicine). Take the following with you to your follow-up doctor appointments: * Weight Chart * Medication List * List of questions Do not drink excessive alcohol, beer or wine. Pending Studies at Discharge: No Stand-Alone Forms: My [employer], Smoking Cessation Medications and DC Order Prescriptions: New albuterol sulfate [Ventolin HFA] 90 mcg/actuation Hfa Aerosol Inhaler 2 puff inhalation Q6H PRN (Reason: shortness of breath or wheezing) Qty: 8.5 0RF midodrine 10 mg Tablet 10 mg PO TID@0800,1200,1700 Qty: 60 0RF spironolactone 25 mg Tablet 12.5 mg PO QAM Qty: 30 0RF torsemide 20 mg Tablet 20 mg PO QAM Qty: 30 0RF potassium chloride 20 mEq Tablet,Er Particles/Crystals 20 meq PO QAM Qty: 30 0RF torsemide 10 mg tablet 10 mg PO QPM Qty: 30 0RF Rx Instructions: Take at 2pm daily metoprolol succinate 25 mg Tablet Extended Release 24 Hr 25 mg PO BID Qty: 60 0RF Continued levothyroxine 75 mcg tablet 75 mcg PO DAILYBB rosuvastatin 20 mg tablet 20 mg PO QAM Jardiance 10 mg tablet 10 mg PO QAM cholecalciferol (vitamin D3) [Vitamin D3] 50 mcg (2,000 unit) Tablet 50 mcg PO QAM sennosides-docusate sodium [Senexon-S] 8.6-50 mg tablet 1 tab PO QAM escitalopram oxalate 5 mg tablet 5 mg PO QAM oxycodone 10 mg tablet 10 mg PO QID PRN (Reason: Pain) albuterol sulfate 90 mcg/actuation HFA aerosol inhaler 2 inh inhalation Q6H PRN (Reason: shortness of breath or wheezing) Qty: 8.5 0RF Patient Comments: almost out of this med..wants a refill trazodone 50 mg tablet 50 mg PO HS magnesium hydroxide [Milk of Magnesia] 400 mg/5 mL Suspension 15 ml PO DAILY PRN (Reason: Constipation) Rx Instructions: pt prefers the GREEN kind magnesium oxide 400 mg (241.3 mg magnesium) Tablet 400 mg PO QAM Qty: 1 0RF Eliquis 5 mg Tablet 5 mg PO BID Qty: 1 0RF Discontinued metoprolol succinate 50 mg tablet extended release 24 hr 50 mg PO AMHS spironolactone 25 mg tablet 12.5 mg PO [id number] Rx Instructions: take on mon/wed/fri furosemide 40 mg tablet 40 mg PO QAM Discharge Orders: Discharge Order- CHF (Routine); Ordered 06/17/25 Ordered By: Andrez Mendieta Admission Data Admit Date/Time: 06/07/25 20:04 Attending Provider: Andrez Mendieta Admit Provider: Ronn Rodriguez Primary Care Provider: Rose Marie Galloway Other Providers: [facility]; Ronn Rodriguez; Jonathan Johnson; Grady Orozco; Neal Alvarez
[2025-06-17 11:25] VITALS: BP 91/53; PULSE 60; RESP 18; TEMP 97.3; O2SAT 99
== END 2025-06-17 14:28 | disposition home health service (06) | DRG 291 ==
LOC: ED 17:16 → SUATTDRO 20:04 → 2S 20:04